=== PATIENT | female | born 1935 | race Caucasian/White ===

== ENCOUNTER 2018-12-28 00:12 | Inpatient (IN) | payer MEDICARE, OTHER ==
[~2018-12-28] VITALS: Ht 160 cm; Wt 70.0 kg
[2018-12-28] VITALS (53 sets, daily range): BP systolic 101–173; BP diastolic 35–102; PULSE 70–89; RESP 14–37
[2018-12-28] MEDS ORDERED: CEFTRIAXONE 1 GM/50 ML (PMX) 50 ML IVPB STA (00:28)
[2018-12-28] MEDS ORDERED: AZITHROMYCIN 500MG/NS (PMX) 250 ML IV STA (00:28)
[2018-12-28] MEDS ORDERED: NITROGLYCERIN (SL) 0.4 MG TAB ONE (00:39)
[2018-12-28] MEDS ORDERED: NITROGLYCERIN (SL) 0.4 MG TAB SL ONE (01:00)
--- NOTE | 2018-12-28 01:11 | ERD ---
ER Documentation Chief Complaint Chief Complaint bib ra from home for cp and resp distress, abnormal ekg upon arrival. HPI 83-year-old female [place]-speaking patient brought in by ambulance from home for possible chest pain and shortness of breath. She did have an abnormal EKG in the field but there was no evidence of STEMI. Otherwise family is not here to answer any questions. The patient is only [place]-speaking and despite trying to use an grey percher, the patient would not answer any questions. 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, arrhythmia) Hx Alcohol Use: No Hx Substance Use: No Hx Tobacco Use: No Smoking Status: Unknown if ever smoked FmHx Unable to obtain Physical Exam Vitals Vital Signs Date Temp Pulse Resp B/P (MAP) Pulse Ox O2 O2 Flow FiO2 Time Delivery Rate 12/28/18 77 25 126/46 100 BIPAP 05:00 (72) 12/28/18 73 22 106/48 100 BIPAP 04:30 (67) 12/28/18 100 70 04:02 12/28/18 73 22 106/43 100 BIPAP 04:00 (64) 12/28/18 78 100 100 03:00 12/28/18 97.2 84 30 130/65 96 BIPAP 20.0 03:00 (86) 12/28/18 97.2 80 30 142/59 96 BIPAP 20.0 01:08 (86) 12/28/18 97.2 90 34 145/53 96 BIPAP 20.0 01:04 (83) 12/28/18 97.2 93 40 130/58 96 BIPAP 00:46 (82) 12/28/18 109 97 100 00:45 12/28/18 98.7 101 19 108/82 100 00:24 (91) 12/28/18 96.6 106 19 105/81 100 BIPAP 20.0 00:24 (89) Physical Exam Const: Significant respiratory distress, diaphoretic, pale Head: Atraumatic Eyes: Normal Conjunctiva ENT: Dry oral mucosa. Normal External Ears, Nose and Mouth. Neck: Full range of motion. No meningismus. Resp: Rhonchi and rales bilaterally Cardio: Tachycardic with regular rhythm, no murmurs Abd: Soft, non tender, non distended. Normal bowel sounds Skin: No petechiae or rashes Back: No midline or flank tenderness Ext: No cyanosis, or edema Neur: Awake and alert Psych: Normal Mood and Affect Result Diagram: 12/28/18 0027 12/28/18 0027 Results 24 hrs Laboratory Tests Test 12/28/18 00:26 12/28/18 00:27 12/28/18 00:33 12/28/18 01:15 POC Venous 3.6 mmol/L Lactate White Blood Count 18.3 10^3/ul Red Blood Count 3.08 10^6/ul Hemoglobin 9.3 g/dl Hematocrit 31.1 % Mean Corpuscular 101.0 fl Volume Mean Corpuscular 30.2 pg Hemoglobin Mean Corpuscular 29.9 g/dl Hemoglobin Concen t Red Cell 17.1 % Distribution Width Platelet Count 348 10^3/UL Mean Platelet 9.9 fl Volume Immature 0.700 % Granulocytes % Neutrophils % 71.5 % Lymphocytes % 22.6 % Monocytes % 4.3 % Eosinophils % 0.4 % Basophils % 0.5 % Nucleated Red 0.0 /100WBC Blood Cells % Immature 0.120 10^3/ul Granulocytes # Neutrophils # 13.1 10^3/ul Lymphocytes # 4.1 10^3/ul Monocytes # 0.8 10^3/ul Eosinophils # 0.1 10^3/ul Basophils # 0.1 10^3/ul Nucleated Red 0.0 10^3/ul Blood Cells # Prothrombin Time 13.9 Sec Prothrombin Time 1.1 Ratio INR International 1.06 Normalized Ratio Activated 28.9 Sec Partial Thrombopl ast Time Sodium Level 144 mmol/L Potassium Level 4.4 mmol/L Chloride Level 107 mmol/L Carbon Dioxide 23 mmol/L Level Anion Gap 14 Blood Urea 45 mg/dl Nitrogen Creatinine 1.87 mg/dl Est Glomerular mL/min Filtrat Rate mL/min Glucose Level 259 mg/dl Calcium Level 8.9 mg/dl Total Bilirubin 0.1 mg/dl Direct Bilirubin 0.00 mg/dl Indirect 0.1 mg/dl Bilirubin Aspartate Amino 47 IU/L Transf (AST/SGOT) Alanine 18 IU/L Aminotransferase (ALT/SGPT) Alkaline 68 IU/L Phosphatase Total Protein 6.2 g/dl Albumin 3.7 g/dl Globulin 2.50 g/dl Albumin/Globulin 1.48 Ratio Bedside Glucose 274 mg/dL Blood Gas Blood arterial Specimen Source Arterial Blood 12/28/2018 1:14:55 Date Drawn AM Arterial Blood pH 7.272 (Temp corrected) Arterial Blood 52.6 mmhg pCO2 (Temp correct) Arterial Blood 106.6 mmHG pO2 (Temp corrected) Arterial Blood 23.7 mmol/L HCO3 Arterial Blood -3.5 mmol/L Base Excess Arterial Blood 96.6 mmHG Oxygen Saturation Francis Test ACCEPTAB Arterial Blood Right Radial Gas Puncture Site Arterial 0.3 % Blood Carboxyhemo globin Arterial Blood 0.3 % Methemoglobin Blood Gas A-a O2 553.8 mmHg Differential Oxyhemoglobin 96.0 % Percent Blood Gas 37.0 C Temperature Blood Gas 20.0 Respiration Rate Blood Gas Actual 34 Respiration Rate Blood Gas MASK - BIPAP Modality FiO2 100.0 % Blood Gas 20/8 IPAP/EPAP Ratio Blood Gas EKAlbino MIKE MD Critical Value Read Back Blood Gas Notified Whom Blood Gas 12/28/2018 1:20:48 Notified Time AM Test 12/28/18 02:25 12/28/18 04:44 Lactic Acid Level 3.0 mmol/L Troponin I 0.743 ng/ml Pending B-Type 8910 PG/ML Natriuretic Peptide Creatine Kinase 187 IU/L Creatine Kinase Pending Index Creatinine Kinase Pending MB (Mass) Current Medications Medications Dose Sig/Lashell Start Time Status Last (Trade) Ordered Route PRN Stop Time Admin Dose Reason Admin Ceftriaxone 50 ml @ ONCE STAT 12/28/18 DC 12/28/18 Sodium 100 mls/hr IVPB 00:28 12/28/18 00:50 00:57 Azithromycin 250 ml @ ONCE STAT 12/28/18 DC 12/28/18 250 mls/hr IV 00:28 12/28/18 01:57 01:27 2 tab ONCE ONCE 12/28/18 DC 12/28/18 Nitroglycerin SL 01:00 12/28/18 00:43 01:01 (Nitroglyceri n (Sl Tab) 0.4 Mg) 25 tab STK-MED 12/28/18 DC Nitroglycerin ONCE .ROUTE 00:39 12/28/18 00:40 (Nitroglyceri n (Sl Tab) 0.4 Mg) Ondansetron 4 mg ER BRIDGE 12/28/18 HCl (Zofran PRN IV 03:30 12/29/18 Inj) NAUSEA/VOMITI 03:29 NG 650 mg ER BRIDGE 12/28/18 Acetaminophen PRN PO 03:30 12/29/18 (Tylenol .MILD PAIN 03:29 Tab) 1-3 OR TEMP Aspirin 162 mg ONCE ONCE 12/28/18 DC 12/28/18 (Aspirin) PO 03:30 12/28/18 03:42 03:31 IV Flush 3 ml PER 12/28/18 (NS 3 ml) PROTOCOL IV 04:30 Ondansetron 4 mg Q6H PRN 12/28/18 HCl (Zofran IV 04:30 Inj) NAUSEA/VOMITI NG Aspirin 81 mg DAILY PO 12/28/18 (Aspirin) 09:00 Furosemide 20 mg DAILY IV 12/28/18 (Lasix) 09:00 1 tab Q5M PRN 12/28/18 Nitroglycerin SL .CHEST 04:30 PAIN (Nitroglyceri n (Sl Tab) 0.4 Mg) Enoxaparin 70 mg ONCE SC 12/28/18 DC Sodium 04:46 12/28/18 (Lovenox) 05:00 Furosemide 20 mg ONCE ONCE 12/28/18 DC (Lasix) IV 04:30 12/28/18 04:44 Discontinue ONCE ONCE 12/28/18 DC Miscellaneous current oral XX 04:30 12/28/18 sulfonylur... 04:44 Information (* Miscellaneous Pharmacy Order) Diagnostic 1 ea 02 XX 12/29/18 Test (Pha) 02:00 (Accu-Chek) ONCE ONCE 12/28/18 DC Miscellaneous HYPOGLYCEMIA XX 04:30 12/28/18 PROTOCOL 04:44 Information w... (* Miscellaneous Pharmacy Order) Insulin NOVOLOG Q4 SC 12/28/18 Aspart *MODERATE* 05:00 (Novolog ALGORI... Insulin Pen) Discontinue ONCE ONCE 12/28/18 DC Miscellaneous all previ... XX 04:30 12/28/18 04:44 Information (* Miscellaneous Pharmacy Order) 1 ea NOTE XX 12/28/18 Miscellaneous 05:00 Information Glucose 15 gm Q15M PRN 12/28/18 (Glutose) PO DECREASED 05:00 GLUCOSE Glucose 22.5 gm Q15M PRN 12/28/18 (Glutose) PO DECREASED 05:00 GLUCOSE Dextrose 25 ml Q15M PRN 12/28/18 (D50w IV DECREASED 05:00 Syringe) GLUCOSE Dextrose 50 ml Q15M PRN 12/28/18 (D50w IV DECREASED 05:00 Syringe) GLUCOSE Glucagon 1 mg Q15M PRN 12/28/18 (Glucagen) IM DECREASED 05:00 GLUCOSE Glucose 15 gm Q15M PRN 12/28/18 (Glutose) BUCCAL 05:00 DECREASED GLUCOSE Procedures/MDM EMERGENT LABS AND DIAGNOSTIC STUDIES: Lab Results above were reviewed and interpreted by me. CBC: Leukocytosis, may be stress reaction versus infection. Mild anemia CMP: Evidence of renal insufficiency of unknown chronicity. Hyperglycemic w ithout acidosis. No evidence of clinically significant electrolyte abnormality, acidosis, hypoglycemia, liver disease, or biliary obstruction Troponin elevated, concerning for myocardial ischemia Lactate elevated, more likely secondary to hypoperfusion rather than sepsis ABG is consistent with respiratory acidosis with a low pH and elevated CO2 12-lead EKG was interpreted by Krissy Benavidez MD: Sinus tachycardia at 105 bpm Left bundle branch block No acute ST or T wave changes suggestive of acute ischemia or STEMI. Chest X-ray 1V Interpreted by me: Soft Tissue: No acute abnormalities Bones: No acute abnormalities Mediastinum/Cardiac Silhouette/Lungs: Significant cardiomegaly with signs of pulmonary edema. No focal infiltrate seen Initial Nursing notes reviewed. Previous Medical Records requested via the Electronic Health Record. EMERGENCY DEPARTMENT COURSE / MEDICAL DECISION MAKING: Patient is presenting with shortness of breath and respiratory distress on exam. She was hypoxic on room air. She was not improving with supplemental oxygen and was placed on BiPAP for possible CHF exacerbation based on exam. Chest x- ray did show evidence of pulmonary edema and cardiomegaly. EKG showed a left bundle branch block. Unfortunately I did not have any previous EKGs in her records to compare to. Patient was unable to provide any history on arrival. However after BiPAP was started, she felt significantly better and her color improved. Her troponin was however slightly elevated, concerning for non-ST elevation NE. patient's finally arrived to bedside at least 1 hour after the patient arrived. He provided some history with the use of a dynamicist but states that she only has a valve problem but denies any heart disease. However based on my examination and my work-up, I feel that the patient is suffering from decompensated heart failure. I finally was able to speak with the patient's maintenance journeyman, Dr. Archlueta, who reviewed the patient's records and states that her last EKG was from September 2017 and the patient did not have a left bundle branch block at that time and feels that this left bundle branch block is new. Echo was last done in March 2018 showing an EF of 60%, severe MR, and aortic stenosis. Family has reportedly opted for no surgery given the patient's age and advanced dementia. Dr. Cantu, maintenance journeyman on-call was paged and I am still awaiting a response. The admitting physician has been notified. Repeat EKG was done and was significantly improved from prior. Patient had an incomplete left bundle branch block with LVH and minimal lateral ST depressions. Aspirin was given. She does not require emergent cardiac catheterization as her symptoms have improved and she is asymptomatic but will require admission for further w/u for ischemia. Although the patient's lactate was elevated, I feel this is likely secondary to tissue hypoperfusion rather than severe sepsis or septic shock. I have a lower suspicion for pneumonia. Her leukocytosis is likely related to stress response. However upon initial presentation the patient had blood cultures done and broad-spectrum antibiotics were given. No IV fluids were given as the patient is fluid overloaded. Critical Care Time: 40 minutes Treatments/Evaluations: Close monitoring and treatment of unstable vital signs, cardiorespiratory, and neurologic status, while maintaining tight balance of fluid, respiratory, and cardiac interventions. This time includes discussing the case with the patient and the patients family. This time does not include all procedures stated elsewhere in this record. This time also includes reviewing old records, labs and radiological studies. This time includes examining and re- examining the patient. Additionally, this time also includes arranging care with admitting and consulting physicians. Accepting Care Team: Current data and ongoing care discussed. Time: Time of admission Primary Provider: Dr. Thornton Consulting: none Outstanding Data: none Departure Diagnosis: Primary Impression: Acute exacerbation of CHF (congestive heart failure) Heart failure type: unspecified Qualified Codes: I50.9 - Heart failure, unspecified Additional Impressions: Acute respiratory failure, unspecified whether with hypoxia or hypercapnia Renal insufficiency Leukocytosis Leukocytosis type: unspecified Qualified Codes: D72.829 - Elevated white blood cell count, unspecified Altered mental status Altered mental status type: transient alteration of awareness Qualified Codes: R40.4 - Transient alteration of awareness Condition: Serious MARRY BENAVIDEZ MD December 28, 2018 01:11
[2018-12-28] MEDS ORDERED: ASPIRIN 81 MG TAB PO ONE (03:30)
[2018-12-28] MEDS ORDERED: ONDANSETRON 4 MG INJ IV PRN (03:30)
[2018-12-28] MEDS ORDERED: ACETAMINOPHEN 325 MG TAB PO PRN (03:30)
[2018-12-28] MEDS ORDERED: NACL 0.9% 3 ML SYG IV SCH (04:30)
[2018-12-28] MEDS ORDERED: FUROSEMIDE 20 MG INJ IV ONE (04:30)
[2018-12-28] MEDS ORDERED: ENOXAPARIN 80 MG/0.8 ML SYG SC SCH (04:46)
[2018-12-28] MEDS ORDERED: GLUCOSE GEL 15 GRAM TUBE BUCCAL PRN (05:00)
[2018-12-28] MEDS ORDERED: GLUCAGON 1 MG INJ IM PRN (05:00)
[2018-12-28] MEDS ORDERED: GLUCOSE GEL 15 GRAM TUBE PO PRN ×2 (05:00)
[2018-12-28] MEDS ORDERED: DEXTROSE 50% 50 ML SYRINGE IV PRN ×2 (05:00)
[2018-12-28] MEDS: INSULIN ASPART [NOVOLOG] 3 ML PEN SC SCH ×5 (06:34→20:59)
--- NOTE | 2018-12-28 06:57 | HP ---
Date/Time of Note Date/Time of Note DATE: 12/28/18 TIME: 06:49 Assessment/Plan VTE Prophylaxis Pharmacological prophylaxis: heparin Lines/Catheters IV Catheter Type (from Nrsg): Saline Lock Assessment/Plan Assessment/Plan 83 yo female with CP and SOB secondary to NSTEMI and CHF PLAN pt is s/p treatment dose Lovenox -cont tele monitoring - place on aspirin - serial trop -2D echo and cardiology consult - BiPAP Result Diagram: 12/28/18 0027 12/28/18 0027 Results 24hrs Laboratory Tests Test 12/28/18 00:26 12/28/18 00:27 12/28/18 00:33 12/28/18 01:15 POC Venous Lactate 3.6 *H White Blood Count 18.3 H Red Blood Count 3.08 L Hemoglobin 9.3 L Hematocrit 31.1 L Mean Corpuscular 101.0 Volume Mean Corpuscular 30.2 Hemoglobin Mean Corpuscular 29.9 L Hemoglobin Concent Red Cell 17.1 H Distribution Width Platelet Count 348 Mean Platelet 9.9 Volume Immature 0.700 H Granulocytes % Neutrophils % 71.5 Lymphocytes % 22.6 Monocytes % 4.3 Eosinophils % 0.4 Basophils % 0.5 Nucleated Red 0.0 Blood Cells % Immature 0.120 H Granulocytes # Neutrophils # 13.1 H Lymphocytes # 4.1 H Monocytes # 0.8 Eosinophils # 0.1 Basophils # 0.1 Nucleated Red 0.0 Blood Cells # Prothrombin Time 13.9 Prothrombin Time 1.1 Ratio INR International 1.06 Normalized Ratio Activated 28.[address] Time Sodium Level 144 Potassium Level 4.4 Chloride Level 107 Carbon Dioxide 23 Level Anion Gap 14 H Blood Urea 45 H Nitrogen Creatinine 1.87 H Est Glomerular Filtrat Rate mL/min Glucose Level 259 H Calcium Level 8.9 Total Bilirubin 0.1 L Direct Bilirubin 0.00 Indirect Bilirubin 0.1 Aspartate Amino 47 H Transf (AST/SGOT) Alanine 18 Aminotransferase ( ALT/SGPT) Alkaline 68 Phosphatase Total Protein 6.2 Albumin 3.7 Globulin 2.50 Albumin/Globulin 1.48 Ratio Bedside Glucose 274 H Blood Gas Specimen Blood arterial Source Arterial Blood 12/28/2018 1:14:55 Date Drawn AM Arterial Blood pH 7.272 *L (Temp corrected) Arterial Blood 52.6 H pCO2 (Temp correct) Arterial Blood pO2 106.6 H (Temp corrected) Arterial Blood 23.7 HCO3 Arterial Blood -3.5 L Base Excess Arterial Blood 96.6 Oxygen Saturation Francis Test ACCEPTAB Arterial Blood Gas Right Radial Puncture Site Arterial 0.3 Blood Carboxyhemog lobin Arterial Blood 0.3 Methemoglobin Blood Gas A-a O2 553.8 H Differential Oxyhemoglobin 96.0 Percent Blood Gas 37.0 Temperature Blood Gas 20.0 Respiration Rate Blood Gas Actual 34 Respiration Rate Blood Gas Modality MASK - BIPAP FiO2 100.0 Blood Gas 20/8 IPAP/EPAP Ratio Blood Gas Critical Albino SHEPHERD MD Value Read Back Blood Gas Notified Whom Blood Gas Notified 12/28/2018 1:20:48 Time AM Test 12/28/18 02:25 12/28/18 04:44 12/28/18 06:31 Lactic Acid Level 3.0 *H 1.2 Troponin I 0.743 *H 3.410 *H B-Type Natriuretic 8910 H Peptide Creatine Kinase 187 Creatine Kinase 8.0 Index Creatinine Kinase 14.90 H MB (Mass) Bedside Glucose 127 HPI/ROS Admit Date/Time Admit Date/Time December 28, 2018 at 03:23 Hx of Present Illness This is an 83-year-old female with reported history of dementia, hypertension, dyslipidemia, severe MR and aortic stenosis, arrhythmia who was brought to the ER for chest pain and shortness of breath. Patient is not able to provide history. In the ER, family was at the bedside and provided some information. Patient has been placed on a BiPAP for shortness of breath. Initial ABG shows pH of 7.27, PCO2 53, PO2 107, bicarb 24, on 100% FiO2 while on BiPAP. Chest x- ray shows mild pulmonary edema. Her first troponin was found to be elevated at 0.7, the second just resulted and is even higher at 3.4. Initial EKG shows LBBB, repeat EKG without LBBB. Patient did remove her BIPAP to go to rest room and I noticed that she's obviously short of breath especially when walking. ER physician reached out to patient's missile pad mechanic, Dr. Arabella Patel [phone], who reviewed the patient's records and stated that her last EKG was from September 2017 and the patient did not have a left bundle branch block at that time and felt that this left bundle branch block was new. Echo was last done in March 2018 showing an EF of 60%, severe MR, and aortic stenosis. Family has reportedly opted for no surgery given the patient's age and advanced dementia. PMH/Family/Social Past Medical History Past Surgical Hx: other (see hpi) Family History Significant Family History: no pertinent family hx Social History Alcohol Use: heavy (2 beers a day) Smoking Status: Never smoker Drug Use: none Exam Constitutional: other (no acute distress) ENMT: nl external ears & nose Neck: supple, non-tender Respiratory: normal air movement Cardiovascular: nl pulses Gastrointestinal: soft Extremities: normal pulses Medications Current Medications Ondansetron HCl (Zofran Inj) 4 mg ER BRIDGE PRN IV NAUSEA/VOMITING; Start 12/28/18 at 03:30; Stop 12/29/18 at 03:29 Acetaminophen (Tylenol Tab) 650 mg ER BRIDGE PRN PO .MILD PAIN 1-3 OR TEMP; Start 12/28/18 at 03:30; Stop 12/29/18 at 03:29 IV Flush (NS 3 ml) 3 ml PER PROTOCOL IV ; Start 12/28/18 at 04:30 Ondansetron HCl (Zofran Inj) 4 mg Q6H PRN IV NAUSEA/VOMITING; Start 12/28/18 at 04:30 Aspirin (Aspirin) 81 mg DAILY PO ; Start 12/28/18 at 09:00 Furosemide (Lasix) 20 mg DAILY IV ; Start 12/28/18 at 09:00 Nitroglycerin (Nitroglycerin (Sl Tab) 0.4 Mg) 1 tab Q5M PRN SL .CHEST PAIN; Start 12/28/18 at 04:30 Diagnostic Test (Pha) (Accu-Chek) 1 ea 02 XX ; Start 12/29/18 at 02:00 Insulin Aspart (Novolog Insulin Pen) NOVOLOG *MODERATE* ALGORI... Q4 SC ; Start 12/28/18 at 05:00 Miscellaneous Information 1 ea NOTE XX ; Start 12/28/18 at 05:00 Glucose (Glutose) 15 gm Q15M PRN PO DECREASED GLUCOSE; Start 12/28/18 at 05:00 Glucose (Glutose) 22.5 gm Q15M PRN PO DECREASED GLUCOSE; Start 12/28/18 at 05:00 Dextrose (D50w Syringe) 25 ml Q15M PRN IV DECREASED GLUCOSE; Start 12/28/18 at 05:00 Dextrose (D50w Syringe) 50 ml Q15M PRN IV DECREASED GLUCOSE; Start 12/28/18 at 0 5:00 Glucagon (Glucagen) 1 mg Q15M PRN IM DECREASED GLUCOSE; Start 12/28/18 at 05:00 Glucose (Glutose) 15 gm Q15M PRN BUCCAL DECREASED GLUCOSE; Start 12/28/18 at 05:00 Coded Allergies: No Known Allergy (Unverified , 12/29/18) Social History Smoking Status: Unknown if ever smoked Exam/Review of Systems Vital Signs Vitals Vital Signs Date Temp Pulse Resp B/P (MAP) Pulse Ox O2 O2 Flow FiO2 Time Delivery Rate 12/28/18 98.5 76 26 128/59 97 BIPAP 20.0 06:35 (82) 12/28/18 70 05:52 FIOR NEW MD December 28, 2018 06:57
[2018-12-28] MEDS: ASPIRIN 81 MG TAB PO SCH (09:00)
[2018-12-28] MEDS: NITROGLYCERIN (SL) 0.4 MG TAB SL PRN (09:55)
[2018-12-28] MEDS: FUROSEMIDE 40 MG INJ IV SCH (10:07)
[2018-12-28] MEDS ORDERED: NITROGLYCERIN 50 MG/D5W (PMX) 250 ML IV SCH (10:30)
[2018-12-28] MEDS ORDERED: NITROGLYCERIN (IC) 100 MCG/ML INJ ONE (10:32)
[2018-12-28] MEDS ORDERED: VERAPAMIL 5 MG INJ ONE (10:32)
[2018-12-28] MEDS ORDERED: MIDAZOLAM 1 MG/ML 2 ML INJ ONE (10:32)
[2018-12-28] MEDS ORDERED: FENTAnyl 50 MCG/ML VIAL ONE (10:32)
[2018-12-28] MEDS ORDERED: IODIXANOL LOCM 100 ML BTL ONE (10:33)
[2018-12-28] MEDS ORDERED: IOHEXOL 350MG/ML 50 ML BTL ONE (10:33)
--- NOTE | 2018-12-28 10:50 | CONS ---
Assessment/Plan Assessment/Plan Hospital Course (Demo Recall) 83 yo with acute onset dyspnea and chest pain and new lbbb, with decompensation this am requiring bipap. Imp: VT with new LBBB, being treated as "STEMI" acute resp failure htn possible valvular heart disease, no loud murmurs heard on exam CKD with cr 1.8 on presentation Recommendations: Coronary angiography with possible angioplasty. Discussed plan with patient's , risks and benefits, with Manju KNOX translating. He agrees for her to proceed (pt not in any condition to provide informed consent) Will be cautious with contrast dye Patient received Lovenox this am, so if further anticoagulation needed for pci, would prefer to use IV Lovenox 0.3 mg/kg. Consultation Date/Type/Reason Admit Date/Time December 28, 2018 at 03:23 Date of Consultation: December 28, 2018 Type of Consult Cardiology Reason for Consultation chest pain, new left bundle, VT Requesting Provider: ANAM TOMPKINS MD Date/Time of Note DATE: 12/28/18 TIME: 10:43 Hx of Present Illness 83 yo with h/o htn, followed by Dr. Arabella Archuleta as an outpatient, presents with 2 weeks left leg pain and acute onset chest pain and dyspnea yesterday. EKG showed incomplete lbbb on presentation and at present is a complete lbbb. Patient developed worsening sob and cp this am, given furosemide and now on bipap. Due to decompensation and new lbbb I was contacted. After Lasix pt is more comfortable but still a bit tachypneic. History obtained from with Manju KNOX translating, as pt unable to provide full history. At baseline pt fairly active, has no h/o stents, VT, or CABG. Subjective hx not possible: pt critical status Past Medical History Medical History: hypertension Medications Current Medications IV Flush (NS 3 ml) 3 ml PER PROTOCOL IV ; Start 12/28/18 at 04:30 Ondansetron HCl (Zofran Inj) 4 mg Q6H PRN IV NAUSEA/VOMITING; Start 12/28/18 at 04:30 Aspirin (Aspirin) 81 mg DAILY PO ; Start 12/28/18 at 09:00 Furosemide (Lasix) 20 mg DAILY IV Last administered on 12/28/18at 10:07; Admin Dose 20 MG; Start 12/28/18 at 09:00 Nitroglycerin (Nitroglycerin (Sl Tab) 0.4 Mg) 1 tab Q5M PRN SL .CHEST PAIN Last administered on 12/28/18at 09:55; Admin Dose 1 TAB; Start 12/28/18 at 04:30 Diagnostic Test (Pha) (Accu-Chek) 1 ea 02 XX ; Start 12/29/18 at 02:00 Insulin Aspart (Novolog Insulin Pen) NOVOLOG *MODERATE* ALGORI... Q4 SC ; Start 12/28/18 at 05:00 Miscellaneous Information 1 ea NOTE XX ; Start 12/28/18 at 05:00 Glucose (Glutose) 15 gm Q15M PRN PO DECREASED GLUCOSE; Start 12/28/18 at 05:00 Glucose (Glutose) 22.5 gm Q15M PRN PO DECREASED GLUCOSE; Start 12/28/18 at 05:00 Dextrose (D50w Syringe) 25 ml Q15M PRN IV DECREASED GLUCOSE; Start 12/28/18 at 05:00 Dextrose (D50w Syringe) 50 ml Q15M PRN IV DECREASED GLUCOSE; Start 12/28/18 at 05:00 Glucagon (Glucagen) 1 mg Q15M PRN IM DECREASED GLUCOSE; Start 12/28/18 at 05:00 Glucose (Glutose) 15 gm Q15M PRN BUCCAL DECREASED GLUCOSE; Start 12/28/18 at 05:00 Nitroglycerin/ Dextrose 250 ml @ 5 mls/hr TITRATE IV ; Start 12/28/18 at 10:30; Status UNV Allergies: Coded Allergies: No Known Allergy (Unverified , 12/28/18) Past Surgical History unk Family History Significant Family History: no pertinent family hx Social History Smoking Status: Never smoker Exam/Review of Systems Vital Signs Vitals Vital Signs Date Temp Pulse Resp B/P (MAP) Pulse Ox O2 O2 Flow FiO2 Time Delivery Rate 12/28/18 Non 15.0 09:40 Rebreather 12/28/18 84 08:09 12/28/18 97.9 24 127/60 96 07:28 (82) 12/28/18 70 05:52 Exam Constitutional: alert Psych: nl mood/affect Head: normocephalic Eyes: EOMI, nl lids, nl sclera ENMT: nl external ears & nose, nl nasal mucosa & septum Neck: No jvd, No bruits Respiratory: crackles/rales (mild, diffuse) Cardiovascular: regular rate and rhythm, other (no murmurs heard) Gastrointestinal: soft, nl liver, spleen, non-tender Musculoskeletal: nl extremities to inspection Extremities: No normal pulses (absent dp and pt pulses) Neurological: nl speech Skin: other (clammy) Labs Result Diagram: 12/28/18 0027 12/28/18 0027 Results 24hrs Laboratory Tests Test 12/28/18 00:26 12/28/18 00:27 12/28/18 00:33 12/28/18 01:15 POC Venous Lactate 3.6 *H White Blood Count 18.3 H Red Blood Count 3.08 L Hemoglobin 9.3 L Hematocrit 31.1 L Mean Corpuscular 101.0 Volume Mean Corpuscular 30.2 Hemoglobin Mean Corpuscular 29.9 L Hemoglobin Concent Red Cell 17.1 H Distribution Width Platelet Count 348 Mean Platelet 9.9 Volume Immature 0.700 H Granulocytes % Neutrophils % 71.5 Lymphocytes % 22.6 Monocytes % 4.3 Eosinophils % 0.4 Basophils % 0.5 Nucleated Red 0.0 Blood Cells % Immature 0.120 H Granulocytes # Neutrophils # 13.1 H Lymphocytes # 4.1 H Monocytes # 0.8 Eosinophils # 0.1 Basophils # 0.1 Nucleated Red 0.0 Blood Cells # Prothrombin Time 13.9 Prothrombin Time 1.1 Ratio INR International 1.06 Normalized Ratio Activated 28.[address] Time Sodium Level 144 Potassium Level 4.4 Chloride Level 107 Carbon Dioxide 23 Level Anion Gap 14 H Blood Urea 45 H Nitrogen Creatinine 1.87 H Est Glomerular Filtrat Rate mL/min Glucose Level 259 H Calcium Level 8.9 Total Bilirubin 0.1 L Direct Bilirubin 0.00 Indirect Bilirubin 0.1 Aspartate Amino 47 H Transf (AST/SGOT) Alanine 18 Aminotransferase ( ALT/SGPT) Alkaline 68 Phosphatase Total Protein 6.2 Albumin 3.7 Globulin 2.50 Albumin/Globulin 1.48 Ratio Bedside Glucose 274 H Blood Gas Specimen Blood arterial Source Arterial Blood 12/28/2018 1:14:55 Date Drawn AM Arterial Blood pH 7.272 *L (Temp corrected) Arterial Blood 52.6 H pCO2 (Temp correct) Arterial Blood pO2 106.6 H (Temp corrected) Arterial Blood 23.7 HCO3 Arterial Blood -3.5 L Base Excess Arterial Blood 96.6 Oxygen Saturation Francis Test ACCEPTAB Arterial Blood Gas Right Radial Puncture Site Arterial 0.3 Blood Carboxyhemog lobin Arterial Blood 0.3 Methemoglobin Blood Gas A-a O2 553.8 H Differential Oxyhemoglobin 96.0 Percent Blood Gas 37.0 Temperature Blood Gas 20.0 Respiration Rate Blood Gas Actual 34 Respiration Rate Blood Gas Modality MASK - BIPAP FiO2 100.0 Blood Gas 20/8 IPAP/EPAP Ratio Blood Gas Critical EKAlbino MIKE MD Value Read Back Blood Gas Notified Whom Blood Gas Notified 12/28/2018 1:20:48 Time AM Test 12/28/18 02:25 12/28/18 04:44 12/28/18 06:31 12/28/18 07:00 Lactic Acid Level 3.0 *H 1.2 Troponin I 0.743 *H 3.410 *H B-Type Natriuretic 8910 H Peptide Creatine Kinase 187 Creatine Kinase 8.0 Index Creatinine Kinase 14.90 H MB (Mass) Bedside Glucose 127 Blood Gas Specimen Blood arterial Source Arterial Blood 12/28/2018 8:40:13 Date Drawn AM Arterial Blood pH 7.416 (Temp corrected) Arterial Blood 39.4 pCO2 (Temp correct) Arterial Blood pO2 104.8 H (Temp corrected) Arterial Blood 24.8 HCO3 Arterial Blood 0.3 Base Excess Arterial Blood 97.3 Oxygen Saturation Francis Test ACCEPTAB Arterial Blood Gas Right Radial Puncture Site Arterial 0.3 Blood Carboxyhemog lobin Arterial Blood 0.2 Methemoglobin Blood Gas A-a O2 207.4 H Differential Oxyhemoglobin 96.8 Percent Blood Gas 37.0 Temperature Blood Gas 20.0 Respiration Rate Blood Gas Actual 22 Respiration Rate Blood Gas Modality MASK - BIPAP FiO2 50.0 Blood Gas Pressure 12 Support Blood Gas 20/8 IPAP/EPAP Ratio Blood Gas Notified DT Whom Blood Gas Notified 12/28/2018 8:50:54 Time AM Test 12/28/18 08:10 12/28/18 09:51 12/28/18 10:11 Bedside Glucose 174 137 Creatine Kinase 290 H Creatine Kinase Pending Index Creatinine Kinase Pending MB (Mass) Troponin I Pending Imaging Imaging LBBB this am. Last night, incomplete LBBB. Both with nsr Medications Medications Current Medications IV Flush (NS 3 ml) 3 ml PER PROTOCOL IV ; Start 12/28/18 at 04:30 Ondansetron HCl (Zofran Inj) 4 mg Q6H PRN IV NAUSEA/VOMITING; Start 12/28/18 at 04:30 Aspirin (Aspirin) 81 mg DAILY PO ; Start 12/28/18 at 09:00 Furosemide (Lasix) 20 mg DAILY IV Last administered on 12/28/18at 10:07; Admin Dose 20 MG; Start 12/28/18 at 09:00 Nitroglycerin (Nitroglycerin (Sl Tab) 0.4 Mg) 1 tab Q5M PRN SL .CHEST PAIN Last administered on 12/28/18at 09:55; Admin Dose 1 TAB; Start 12/28/18 at 04:30 Diagnostic Test (Pha) (Accu-Chek) 1 ea 02 XX ; Start 12/29/18 at 02:00 Insulin Aspart (Novolog Insulin Pen) NOVOLOG *MODERATE* ALGORI... Q4 SC ; Start 12/28/18 at 05:00 Miscellaneous Information 1 ea NOTE XX ; Start 12/28/18 at 05:00 Glucose (Glutose) 15 gm Q15M PRN PO DECREASED GLUCOSE; Start 12/28/18 at 05:00 Glucose (Glutose) 22.5 gm Q15M PRN PO DECREASED GLUCOSE; Start 12/28/18 at 05:00 Dextrose (D50w Syringe) 25 ml Q15M PRN IV DECREASED GLUCOSE; Start 12/28/18 at 05:00 Dextrose (D50w Syringe) 50 ml Q15M PRN IV DECREASED GLUCOSE; Start 12/28/18 at 05:00 Glucagon (Glucagen) 1 mg Q15M PRN IM DECREASED GLUCOSE; Start 12/28/18 at 05:00 Glucose (Glutose) 15 gm Q15M PRN BUCCAL DECREASED GLUCOSE; Start 12/28/18 at 05:00 Nitroglycerin/ Dextrose 250 ml @ 5 mls/hr TITRATE IV ; Start 12/28/18 at 10:30; Status RODRIGUEZ HOWARD December 28, 2018 10:50
--- NOTE | 2018-12-28 11:57 | OPR ---
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 Patient brought emergently to the cardiac catheterization laboratory. Moderate sedation administered. Using a micropuncture and fluoroscopy for access guidance, a 6F sheath placed in the right COILER. JL4 and JR4 advanced to the asc thoracic aorta and engaged the LM and RCA. Multiple images obtained. Then a pigtail crossed the LV, pressures measured, and LV gram performed, and pullback gradient measured. All catheters exchanged over a J wire. Due to Lovenox given 5 hours prior, sheath sewn in place for removal later today. Findings: Left main -- ok LAD -- 90% proximal lesion at the site of an aneurysm, with FRANCINE 2 flow down the vessel and competitive flow. Lesion difficult to see due to overlap of vessels, best seen in a steep SORTO caudal view LCX -- mild luminal irregularities with one large OM branch RCA -- proximal 80% long lesion of about 25 mm LVEF 35% with global hypokinesis, LVEDP 31 Summary: Moderately reduced LVEF with severe 2 vessel CAD and elevated EDP. Plan is for evaluation for cabg. In the meantime she will be diuresed, placed on nitro gtt and heparin GTT. Case d/w Dr. Freire and Dr. Badillo. Findings d/w pt and her with Manju KNOX template fitter. RODRIGUEZ GARZA December 28, 2018 11:57
[2018-12-28] MEDS: HOLD all METFORMIN and METFORMIN CONTAINING medications for 48 hours post procedure. Chec XX SCH (12:00)
[2018-12-28] MEDS ORDERED: ATORVASTATIN 80 MG TAB PO ONE (13:00)
[2018-12-28] MEDS ORDERED: HEPARIN 1000 UNITS/ML 10 ML INJ IV PRN (13:00)
[2018-12-28] MEDS ORDERED: FUROSEMIDE 40 MG INJ IV ONE (13:00)
[2018-12-28] MEDS ORDERED: HEPARIN 25000 UNITS/250 ML 250 ML ONE (13:18)
[2018-12-28] MEDS ORDERED: HEPARIN 1000 UNITS/ML 10 ML INJ IV SCH (13:49)
[2018-12-28] MEDS: HEPARIN 25000 UNITS/D5W 250 ML IV SCH (14:12)
--- NOTE | 2018-12-28 14:19 | PN ---
Date/Time of Note Date/Time of Note DATE: 12/28/18 TIME: 14:06 Assessment/Plan VTE Prophylaxis Risk score (from Ns)>0 risk: 5 SCD applied (from Ns): No SCD contraindicated: other (no) Pharmacological prophylaxis: heparin Lines/Catheters IV [facility] (from [facility]): Saline Lock Assessment/Plan Assessment/Plan 83 yo Bangladeshi-speaking woman with history of dementia, hypertension, dysli pidemia, severe MR and aortic stenosis, arrhythmia who presents with ACS and multi-vessel coronary artery disease. #CAD #NSTEMI - Cardiac cath 12/28: Severe 2 vessel CAD, LAD and RCA, LAD is culprit with francine 2 flow, and cardiomyopathy with LVEF 35% - Continue heparin gtt - Continue beta geovanny - Continue statin - Currently on home aspirin - Dr. Alvarenga following - Dr. Freire consulted. #Acute CHF exacerbation - Per above, likely due to acute ischemic CAD. - Nitro gtt, titrate to BP and pulmonary edema - NIPPV as needed for pulmonary edema. - Cautious loop diuresis. DVT: heparin gtt GI: PPI Result Diagram: 12/28/18 0027 12/28/18 1011 Subjective 24 Hr Interval Summary Free Text/Dictation This morning, after admission up to tele, rapid response was called for worsening pressure-like chest pain and dyspnea. The patient had coarse breath sounds and pulmonary edema on CXR; and was saturating low 90s on oxygen facemask so was placed on BiPAP. Also given sublingual nitro and IV lasix with relief of dyspnea and chest pain. EKG was done showing complete LBBB. The QRS was much wider than EKG on admission. Also on review of labs, trop increased 0.7 to 3.4. Given the clinical picture I was concerned about an acute coronary syndrome that may need cardiac cath. I called code STEMI for urgent cardiology evaluation, I do not believe the patient was having a true ST elevation [place]. The patient was evaluated by Dr. Alvarenga and taken to cardiac cath. LV gram showed 30% EF and coronary angio showed 90% disease of the LAD and disease along the RCA. See full report. Current plan is to keep patient in ICU on heparin and nitro gtt and plan for CT surgery evaluation. Exam/Review of Systems Exam Vitals Vital Signs Date Temp Pulse Resp B/P (MAP) Pulse Ox O2 O2 Flow FiO2 Time Delivery Rate 12/28/18 77 28 164/42 96 Nasal 13:45 (82) Cannula 12/28/18 98.2 12:00 12/28/18 15.0 09:40 12/28/18 70 05:52 Exam Gen: Frail appearing elderly woman in some respiratory disease on BiPAP Eyes: PERRL, no icterus HEENT: Moist mucous membranes, clear oropharynx Neck: No JVD, no lymphadenopathy Card: Regular rate and rhythm, no murmurs appreciated Pulm: Rales throughout. Mild respiratory distress on BiPAP. Abd: Soft, nontender, nondistended. Ext: No cyanosis/clubbing/edema. Results Results 24hrs Laboratory Tests Test 12/28/18 00:26 12/28/18 00:27 12/28/18 00:33 12/28/18 01:15 POC Venous Lactate 3.6 *H White Blood Count 18.3 H Red Blood Count 3.08 L Hemoglobin 9.3 L Hematocrit 31.1 L Mean Corpuscular 101.0 Volume Mean Corpuscular 30.2 Hemoglobin Mean Corpuscular 29.9 L Hemoglobin Concent Red Cell 17.1 H Distribution Width Platelet Count 348 Mean Platelet 9.9 Volume Immature 0.700 H Granulocytes % Neutrophils % 71.5 Lymphocytes % 22.6 Monocytes % 4.3 Eosinophils % 0.4 Basophils % 0.5 Nucleated Red 0.0 Blood Cells % Immature 0.120 H Granulocytes # Neutrophils # 13.1 H Lymphocytes # 4.1 H Monocytes # 0.8 Eosinophils # 0.1 Basophils # 0.1 Nucleated Red 0.0 Blood Cells # Prothrombin Time 13.9 Prothrombin Time 1.1 Ratio INR International 1.06 Normalized Ratio Activated 28.[address] Time Sodium Level 144 Potassium Level 4.4 Chloride Level 107 Carbon Dioxide 23 Level Anion Gap 14 H Blood Urea 45 H Nitrogen Creatinine 1.87 H Est Glomerular Filtrat Rate mL/min Glucose Level 259 H Calcium Level 8.9 Total Bilirubin 0.1 L Direct Bilirubin 0.00 Indirect Bilirubin 0.1 Aspartate Amino 47 H Transf (AST/SGOT) Alanine 18 Aminotransferase ( ALT/SGPT) Alkaline 68 Phosphatase Total Protein 6.2 Albumin 3.7 Globulin 2.50 Albumin/Globulin 1.48 Ratio Bedside Glucose 274 H Blood Gas Specimen Blood arterial Source Arterial Blood 12/28/2018 1:14:55 Date Drawn AM Arterial Blood pH 7.272 *L (Temp corrected) Arterial Blood 52.6 H pCO2 (Temp correct) Arterial Blood pO2 106.6 H (Temp corrected) Arterial Blood 23.7 HCO3 Arterial Blood -3.5 L Base Excess Arterial Blood 96.6 Oxygen Saturation Francis Test ACCEPTAB Arterial Blood Gas Right Radial Puncture Site Arterial 0.3 Blood Carboxyhemog lobin Arterial Blood 0.3 Methemoglobin Blood Gas A-a O2 553.8 H Differential Oxyhemoglobin 96.0 Percent Blood Gas 37.0 Temperature Blood Gas 20.0 Respiration Rate Blood Gas Actual 34 Respiration Rate Blood Gas Modality MASK - BIPAP FiO2 100.0 Blood Gas 20/8 IPAP/EPAP Ratio Blood Gas Critical Albino SHEPHERD MD Value Read Back Blood Gas Notified Whom Blood Gas Notified 12/28/2018 1:20:48 Time AM Test 12/28/18 02:25 12/28/18 04:44 12/28/18 06:31 12/28/18 07:00 Lactic Acid Level 3.0 *H 1.2 Troponin I 0.743 *H 3.410 *H B-Type Natriuretic 8910 H Peptide Creatine Kinase 187 Creatine Kinase 8.0 Index Creatinine Kinase 14.90 H MB (Mass) Bedside Glucose 127 Blood Gas Specimen Blood arterial Source Arterial Blood 12/28/2018 8:40:13 Date Drawn AM Arterial Blood pH 7.416 (Temp corrected) Arterial Blood 39.4 pCO2 (Temp correct) Arterial Blood pO2 104.8 H (Temp corrected) Arterial Blood 24.8 HCO3 Arterial Blood 0.3 Base Excess Arterial Blood 97.3 Oxygen Saturation Francis Test ACCEPTAB Arterial Blood Gas Right Radial Puncture Site Arterial 0.3 Blood Carboxyhemog lobin Arterial Blood 0.2 Methemoglobin Blood Gas A-a O2 207.4 H Differential Oxyhemoglobin 96.8 Percent Blood Gas 37.0 Temperature Blood Gas 20.0 Respiration Rate Blood Gas Actual 22 Respiration Rate Blood Gas Modality MASK - BIPAP FiO2 50.0 Blood Gas Pressure 12 Support Blood Gas 20/8 IPAP/EPAP Ratio Blood Gas Notified DT Whom Blood Gas Notified 12/28/2018 8:50:54 Time AM Test 12/28/18 08:10 12/28/18 09:51 12/28/18 10:11 12/28/18 12:23 Bedside Glucose 174 137 107 Sodium Level 146 H Potassium Level 4.3 Chloride Level 109 Carbon Dioxide 22 Level Anion Gap 15 H Blood Urea 47 H Nitrogen Creatinine 1.82 H Est Glomerular Filtrat Rate mL/min Glucose Level 170 Calcium Level 9.1 Creatine Kinase 290 H Creatine Kinase 6.2 Index Creatinine Kinase 17.90 H MB (Mass) Troponin I 8.170 *H B-Type Natriuretic 99630 H Peptide Medications Medication Current Medications IV Flush (NS 3 ml) 3 ml PER PROTOCOL IV ; Start 12/28/18 at 04:30 Ondansetron HCl (Zofran Inj) 4 mg Q6H PRN IV NAUSEA/VOMITING; Start 12/28/18 at 04:30 Aspirin (Aspirin) 81 mg DAILY PO ; Start 12/28/18 at 09:00 Furosemide (Lasix) 20 mg DAILY IV Last administered on 12/28/18at 10:07; Admin Dose 20 MG; Start 12/28/18 at 09:00 Nitroglycerin (Nitroglycerin (Sl Tab) 0.4 Mg) 1 tab Q5M PRN SL .CHEST PAIN Last administered on 12/28/18at 09:55; Admin Dose 1 TAB; Start 12/28/18 at 04:30 Diagnostic Test (Pha) (Accu-Chek) 1 ea 02 XX ; Start 12/29/18 at 02:00 Insulin Aspart (Novolog Insulin Pen) NOVOLOG *MODERATE* ALGORI... Q4 SC ; Start 12/28/18 at 05:00 Miscellaneous Information 1 ea NOTE XX ; Start 12/28/18 at 05:00 Glucose (Glutose) 15 gm Q15M PRN PO DECREASED GLUCOSE; Start 12/28/18 at 05:00 Glucose (Glutose) 22.5 gm Q15M PRN PO DECREASED GLUCOSE; Start 12/28/18 at 05:00 Dextrose (D50w Syringe) 25 ml Q15M PRN IV DECREASED GLUCOSE; Start 12/28/18 at 05:00 Dextrose (D50w Syringe) 50 ml Q15M PRN IV DECREASED GLUCOSE; Start 12/28/18 at 05:00 Glucagon (Glucagen) 1 mg Q15M PRN IM DECREASED GLUCOSE; Start 12/28/18 at 05:00 Glucose (Glutose) 15 gm Q15M PRN BUCCAL DECREASED GLUCOSE; Start 12/28/18 at 05:00 Nitroglycerin/ Dextrose 250 ml @ 5 mls/hr TITRATE IV Last administered on 12/28/18at 12:35; Admin Dose 5 MLS/HR; Start 12/28/18 at 10:30 Miscellaneous Information (* Miscellaneous Pharmacy Order) HOLD all METFORMIN ... ONCE XX ; Start 12/28/18 at 12:00; Stop 12/30/18 at 11:59 Heparin Sodium (Porcine) (Heparin (1000 Units/ml)) 4,000 unit PER PROTOCOL PRN IV aPTT<47; Start 12/28/18 at 13:00 Carvedilol (Coreg) 6.25 mg BID PO Last administered on 12/28/18at 13:24; Admin Dose 6.25 MG; Start 12/28/18 at 13:00 Atorvastatin Calcium (Lipitor) 80 mg HS PO ; Start 12/29/18 at 21:00 Heparin Sodium (Porcine) 250 ml @ 8.5 mls/hr Q24H IV ; Start 12/28/18 at 13:48 ANAM TOMPKINS MD December 28, 2018 14:17
--- NOTE | 2018-12-28 15:35 | PN ---
Date/Time of Note Date/Time of Note DATE: 12/28/18 TIME: 15:28 Assessment/Plan Lines/Catheters IV [facility] Saline Lock [place] in Place (from Nrs): Yes Assessment/Plan Assessment/Plan 83 year old admitted with SOB and chest pain and ruled in for NSTEMI. Cath shows high grade proximal LAD disease with slow filling of LAD and long high grade proximal LAD stenosis. Echo shows EF of 35% with moderate to severe MR. CXR shows right infiltrate and her WBC is 18K. Her creatinine is 1.8. She is not ready for CABG at this time. She needs abx to treat her pneumonia and we have to see what her baseline creatinine is. Will follow over next several days. 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 Exam/Review of Systems Vital Signs Vitals Vital Signs Date Temp Pulse Resp B/P (MAP) Pulse Ox O2 O2 Flow FiO2 Time Delivery Rate 12/28/18 77 28 164/42 96 Nasal 13:45 (82) Cannula 12/28/18 5.0 13:40 12/28/18 98.2 12:00 12/28/18 60 11:50 Results Result Diagram: 12/28/18 0027 12/28/18 1011 BAIRON TRAN MD December 28, 2018 15:35
[2018-12-28] MEDS ORDERED: ATROPINE 1 MG/10 ML SYRINGE ONE (16:15)
[2018-12-28] MEDS: PIPER-TAZO 2.25 GM (PMX) 50 ML IVPB SCH ×2 (17:20→23:59)
--- NOTE | 2018-12-28 17:23 | RADRPT ---
Echocardiogram Report Patient Name: Andry MAYStient ID: [id number] : 7 (83y 6m)Study Date: 12/28/2018 12:05:48 PM Gender: FAccession #: [id number] Tech: Clair OlivaVIOLA osorioJENNY Location: Ref.Physician: FIOR NEW Height(Cm): BSA: Weight(Kg): Quality: AdequateAccount #: Procedures: Echocardiographic Report: Transthoracic echocardiogram with complete 2D, M-Mode, and doppler examination. Indications: NSTEMI. Measurements: 2D/M Mode Doppler Measurement Value Normal Range Measurement Value Normal Range LVIDd 2D 5.9 [ 3.8 - 5.2 ] cm AV Peak Kaleb 1.9 [ 100.0 - 170.0 ] cm/se c LVIDs 2D 4.1 [ 2.2 - 3.5 ] cm AV Peak PG 15.0 [ 2.0 - 9.0 ] mmHg LVPWd 2D 1.1 [ 0.6 - 0.9 ] cm AI Peak PG 42.0 mmHg IVSd 2D 0.9 [ 0.6 - 0.9 ] cm AI Peak Kaleb 3.2 cm/sec AoR Diam 2D 2.9 [ 2.3 - 3.1 ] cm AI PHT 376.0 msec EDV 2D 171.0 [ 46.0 - 106.0 ] ml LVOT Peak Kaleb 1.7 [ 70.0 - 110.0 ] cm/sec ESV 2D 75.5 [ 14.0 - 42.0 ] ml LVOT Peak PG 11.0 [ 2.0 - 6.0 ] mmHg EF 2D 55.8 [ 54.0 - 74.0 ] percent MV E Peak Kaleb 1.2 [ 60.0 - 130.0 ] cm/sec LA Dimen 2D 4.2 [ 2.7 - 3.8 ] cm MV A Peak Kaleb 1.3 [ 100.0 - 120.0 ] cm/se c MV E/A 0.9 [ 0.8 - 1.5 ] ratio MV PHT 56.0 [ 20.0 - 100.0 ] msec MV Decel Time 190 [ 104 - 258 ] msec MV Decel [place] 6 Lat E` Kaleb 0.1 [ 10.0 - 15.0 ] cm/sec Lateral E/E` 14.3 [ 1.0 - 2.0 ] ratio Med E` Kaleb 0.1 cm/sec MV E/A 0.9 [ 0.8 - 1.5 ] ratio MVA PHT 3.9 [ 2.0 - 4.0 ] cm2 TR Peak Kaleb 2.2 [ 100.0 - 280.0 ] cm/se c TR Peak PG 20.0 mmHg Findings: Left Ventricle: Normal left ventricular wall thickness. Moderate enlargement of left ventricle cavity. Moderate global left ventricular systolic dysfunction. Ejection fraction is visually estimated at 35-40 %. Tissue Doppler/Mitral Doppler indices are consistent with impaired relaxation (Stage I diastolic dysfunction). Right Ventricle: Normal right ventricular size. Normal right ventricular systolic function. Left Atrium: Upper limit of normal left atrial size. Right Atrium: The right atrium is normal in size. Atrial Septum: Normal atrial septum. Mitral Valve: Mild mitral annular calcification. Moderate mitral valve regurgitation. Aortic Valve: No significant aortic stenosis or insufficiency. Moderate aortic valve regurgitation. Tricuspid Valve: Normal appearance of the tricuspid valve. There is trace to mild tricuspid regurgitation. Pulmonic Valve: Pulmonic valve not well visualized. No evidence of pulmonic regurgitation. Pericardium: Normal pericardium with no significant pericardial effusion. Aorta: Normal aortic root. IVC: Normal size and normal respiratory collapse consistent with normal right atrial pressure. Pulmonary Artery: Normal pulmonary artery size. Conclusions: Normal left ventricular wall thickness. Moderate enlargement of left ventricle cavity. Ejection fraction is visually estimated at 35-40 %. Tissue Doppler/Mitral Doppler indices are consistent with impaired relaxation (Stage I diastolic dysfunction). Mild mitral annular calcification. Moderate mitral valve regurgitation. n. No significant aortic stenosis or insufficiency. Moderate aortic valve regurgitation. Normal appearance of the tricuspid valve. There is trace to mild tricuspid regurgitation. Electronically Signed By: Carlos Alicia 2018-12-28 17:22:40 PDT
[2018-12-28] MEDS: CEPASTAT LOZENGE MT PRN (17:36)
[2018-12-29] VITALS (53 sets, daily range): BP systolic 67–141; BP diastolic 29–98; PULSE 63–102; RESP 17–39; Ht 160 cm; Wt 70.0 kg
[2018-12-29] MEDS: INSULIN ASPART [NOVOLOG] 3 ML PEN SC SCH ×6 (01:00→21:10)
[2018-12-29] MEDS: ACCU-CHEK XX SCH (02:00)
[2018-12-29] MEDS ORDERED: VANCOMYCIN IV PER PHARMACY XX SCH (05:30)
[2018-12-29] MEDS ORDERED: PANTOPRAZOLE 40 MG INJ IV SCH (06:00)
[2018-12-29] MEDS: PIPER-TAZO 2.25 GM (PMX) 50 ML IVPB SCH ×3 (06:04→17:37)
[2018-12-29] MEDS: ONDANSETRON 4 MG INJ IV PRN ×2 (06:26→12:30)
[2018-12-29] MEDS ORDERED: VANCOMYCIN HCL 1.5 GM in SOD CHLORIDE 0.9% 250 ML IVPB SCH (06:30)
[2018-12-29] MEDS: ASPIRIN 81 MG TAB PO SCH (08:33)
[2018-12-29] MEDS: CEPASTAT LOZENGE MT PRN ×2 (08:36→21:27)
[2018-12-29] MEDS: FUROSEMIDE 40 MG INJ IV SCH (08:36)
--- NOTE | 2018-12-29 09:24 | RADRPT ---
Vent Rate: 89 bpm RR Interval: 675 msec ND Interval: [id number] msec QRS Duration: 170 msec QT Interval: 462 msec QTC Interval: 562 msec P-R-T [place]: [id number] - 0 - 14 degrees Sinus Rhythm IVCD, consider LBBB...QRSd>120, notch/slur R I aVL V5-6 Electronically Signed By: Tera Wells
--- NOTE | 2018-12-29 09:31 | CONS ---
Assessment/Plan Assessment/Plan Hospital Course (Demo Recall) 83 yo with STEMI/new LBBB, with severe 2V CAD. Also LVEF is moderately reduced at about 35-40% with what to me appears to be severe aortic regurgitation and moderate mitral regurgitation. Imp: [place] with new LBBB, being treated as STEMI acute systolic heart failure, improved Severe aortic regurgitation and at least moderate mitral regurgitation htn, controlled CKD with cr 1.8 on presentation Possible pneumonia, on abx Recommendations: Continue heparin drip through tomorrow Continue asa, carvedilol No peggy/arb due to renal insufficiency Continue statin therapy Case d/w Dr. Freire, ideal treatment would be 2 vessel CABG (GRAF-LAD and SVG- RCA) with aortic valve repair/replacement and possibly mitral valve repair Patient may benefit from a LOUIE to clarify valvular heart disease, will discuss with Dr. Freire 45 minutes spent on care today, including discussion with family and patient with facility coordinator and communication with Dr. Freire regarding the case. Consultation Date/Type/Reason Admit Date/Time December 28, 2018 at 03:23 Initial Consult Date 12/28/18 Type of Consult Cardiology Requesting Provider: ANAM TOMPKINS MD Date/Time of Note DATE: 12/29/18 TIME: 09:19 24 HR Interval Summary Free Text/Dictation Patient seen this am, communicated with her and her via video facility coordinator. She feels some mild chest tightness, at present is not short of breath. Overnight did require bipap. Exam/Review of Systems Vital Signs Vitals Vital Signs Date Temp Pulse Resp B/P (MAP) Pulse Ox O2 O2 Flow FiO2 Time Delivery Rate 12/29/18 76 08:00 12/29/18 30 114/37 97 Nasal 06:45 (62) Cannula 12/29/18 45 05:15 12/29/18 98.2 04:00 12/29/18 5.0 03:52 Intake and Output 12/28/18 12/28/18 12/29/18 1515:00 23:00 07:00 IntakeIntake Total 128.5 ml 206.0 ml 381.1 ml OutputOutput Total 1100 ml 550 ml 370 ml BalanceBalance -971.5 ml -344.0 ml 11.1 ml Exam Constitutional: alert, oriented, well developed Psych: nl mood/affect Head: normocephalic, atraumatic Eyes: EOMI, nl lids, nl sclera ENMT: nl external ears & nose, nl lips & teeth Neck: supple; No jvd, No bruits Respiratory: clear to auscultation, normal air movement Cardiovascular: regular rate and rhythm, murmurs/extra sounds (3/6 systolic murmur) Gastrointestinal: soft, nl liver, spleen, non-tender Musculoskeletal: nl extremities to inspection Extremities: normal pulses Neurological: nl mental status, nl speech Skin: nl turgor; No rash or lesions Labs Result Diagram: 12/29/18 0551 12/29/18 0551 Results 24hrs Laboratory Tests Test 12/28/18 09:51 12/28/18 10:11 12/28/18 12:23 12/28/18 15:30 Bedside Glucose 137 107 Sodium Level 146 H Potassium Level 4.3 Chloride Level 109 Carbon Dioxide 22 Level Anion Gap 15 H Blood Urea 47 H Nitrogen Creatinine 1.82 H Est Glomerular Filtrat Rate mL/min Glucose Level 170 Calcium Level 9.1 Creatine Kinase 290 H Creatine Kinase 6.2 Index Creatinine Kinase 17.90 H MB (Mass) Troponin I 8.170 *H B-Type Natriuretic 14148 H Peptide Urine Color COLORLESS Urine Clarity CLEAR Urine pH 5.0 Urine Specific 1.016 [place] Urine Ketones NEGATIVE Urine Nitrite NEGATIVE Urine Bilirubin NEGATIVE Urine Urobilinogen NEGATIVE Urine Leukocyte NEGATIVE Esterase Urine Microscopic 123 H RBC Urine Microscopic 4 WBC Urine Hemoglobin 3+ H Urine Glucose NEGATIVE Urine Total NEGATIVE Protein Urine Opiates Negative Screen Urine Barbiturates Negative Urine Amphetamines Negative Screen Urine Positive Benzodiazepines Screen Urine Cocaine Negative Screen Urine Cannabinoids Negative Test 12/28/18 17:19 12/28/18 19:02 12/28/18 20:58 12/28/18 22:15 Bedside Glucose 110 129 Activated > 180.0 *H Partial Thrombopla st Time Blood Gas Specimen Blood arterial Source Arterial Blood 12/28/2018 10:15:25 Date Drawn PM Arterial Blood pH 7.447 (Temp corrected) Arterial Blood 35.2 pCO2 (Temp correct) Arterial Blood pO2 80.9 (Temp corrected) Arterial Blood 23.8 HCO3 Arterial Blood 0 Base Excess Arterial Blood 95.4 Oxygen Saturation Francis Test ACCEPTAB Arterial Blood Gas Left Radial Puncture Site Arterial 0.3 Blood Carboxyhemog lobin Arterial Blood 0.3 Methemoglobin Blood Gas A-a O2 236.0 H Differential Oxyhemoglobin 94.8 Percent Blood Gas 37.0 Temperature Blood Gas 20.0 Respiration Rate Blood Gas Actual 24 Respiration Rate Blood Gas Modality MASK - BIPAP FiO2 50.0 Blood Gas Pressure 12 Support Blood Gas 20/8 IPAP/EPAP Ratio Blood Gas Notified JIMMY Whom Blood Gas Notified 12/28/2018 10:29:10 Time PM Test 12/28/18 22:22 12/29/18 00:55 12/29/18 05:51 12/29/18 06:06 Activated 68.1 H 69.[address] Time Bedside Glucose 136 127 White Blood Count 12.4 #H Red Blood Count 2.94 L Hemoglobin 8.8 L Hematocrit 28.1 L Mean Corpuscular 95.6 Volume Mean Corpuscular 29.9 Hemoglobin Mean Corpuscular 31.3 L Hemoglobin Concent Red Cell 17.2 H Distribution Width Platelet Count 267 # Mean Platelet 10.0 Volume Immature 0.600 H Granulocytes % Neutrophils % 85.3 H Lymphocytes % 10.6 L Monocytes % 3.3 Eosinophils % 0.0 Basophils % 0.2 Nucleated Red 0.0 Blood Cells % Immature 0.070 H Granulocytes # Neutrophils # 10.6 H Lymphocytes # 1.3 Monocytes # 0.4 Eosinophils # 0.0 Basophils # 0.0 Nucleated Red 0.0 Blood Cells # Sodium Level 146 H Potassium Level 3.2 L Chloride Level 107 Carbon Dioxide 26 Level Anion Gap 13 Blood Urea 44 H Nitrogen Creatinine 1.84 H Est Glomerular Filtrat Rate mL/min Glucose Level 122 # Hemoglobin A1c 5.7 Calcium Level 9.0 Magnesium Level 2.3 Total Bilirubin 0.3 Direct Bilirubin 0.00 Indirect Bilirubin 0.3 Aspartate Amino 57 H Transf (AST/SGOT) Alanine 25 Aminotransferase ( ALT/SGPT) Alkaline 52 Phosphatase Total Protein 5.7 L Albumin 3.3 Globulin 2.40 Albumin/Globulin 1.37 Ratio Triglycerides 145 Level Cholesterol Level 109 LDL Cholesterol, 38 Calculated HDL Cholesterol 42 Cholesterol/HDL 2.5 Ratio Thyroid 2.170 Stimulating Hormone (TSH) Test 12/29/18 07:42 Bedside Glucose 116 Medications Medications Current Medications IV Flush (NS 3 ml) 3 ml PER PROTOCOL IV ; Start 12/28/18 at 04:30 Ondansetron HCl (Zofran Inj) 4 mg Q6H PRN IV NAUSEA/VOMITING Last administered on 12/29/18at 06:26; Admin Dose 4 MG; Start 12/28/18 at 04:30 Aspirin (Aspirin) 81 mg DAILY PO Last administered on 12/29/18at 08:33; Admin Dose 81 MG; Start 12/28/18 at 09:00 Furosemide (Lasix) 20 mg DAILY IV Last administered on 12/29/18at 08:36; Admin Dose 20 MG; Start 12/28/18 at 09:00 Nitroglycerin (Nitroglycerin (Sl Tab) 0.4 Mg) 1 tab Q5M PRN SL .CHEST PAIN Last administered on 12/28/18at 09:55; Admin Dose 1 TAB; Start 12/28/18 at 04:30 Diagnostic Test (Pha) (Accu-Chek) 1 ea 02 XX ; Start 12/29/18 at 02:00 Insulin Aspart (Novolog Insulin Pen) NOVOLOG *MODERATE* ALGORI... Q4 SC ; Start 12/28/18 at 05:00 Miscellaneous Information 1 ea NOTE XX ; Start 12/28/18 at 05:00 Glucose (Glutose) 15 gm Q15M PRN PO DECREASED GLUCOSE; Start 12/28/18 at 05:00 Glucose (Glutose) 22.5 gm Q15M PRN PO DECREASED GLUCOSE; Start 12/28/18 at 05:00 Dextrose (D50w Syringe) 25 ml Q15M PRN IV DECREASED GLUCOSE; Start 12/28/18 at 05:00 Dextrose (D50w Syringe) 50 ml Q15M PRN IV DECREASED GLUCOSE; Start 12/28/18 at 0 5:00 Glucagon (Glucagen) 1 mg Q15M PRN IM DECREASED GLUCOSE; Start 12/28/18 at 05:00 Glucose (Glutose) 15 gm Q15M PRN BUCCAL DECREASED GLUCOSE; Start 12/28/18 at 05:00 Nitroglycerin/ Dextrose 250 ml @ 5 mls/hr TITRATE IV Last administered on 12/28/18at 12:35; Admin Dose 5 MLS/HR; Start 12/28/18 at 10:30 Miscellaneous Information (* Miscellaneous Pharmacy Order) HOLD all METFORMIN ... ONCE XX ; Start 12/28/18 at 12:00; Stop 12/30/18 at 11:59 Heparin Sodium (Porcine) (Heparin (1000 Units/ml)) 4,000 unit PER PROTOCOL PRN IV aPTT<47; Start 12/28/18 at 13:00 Carvedilol (Coreg) 6.25 mg BID PO Last administered on 12/28/18at 21:36; Admin Dose 6.25 MG; Start 12/28/18 at 13:00 Atorvastatin Calcium (Lipitor) 80 mg HS PO ; Start 12/29/18 at 21:00 Heparin Sodium (Porcine) 250 ml @ 8.5 mls/hr Q24H IV Last administered on 12/28/18at 14:12; Admin Dose 8.5 MLS/HR; Start 12/28/18 at 13:48 Pantoprazole (Protonix Iv) 40 mg DAILY@06 IV Last administered on 12/29/18 06:04; Admin Dose 40 MG; Start 12/29/18 at 06:00 Piperacillin Sod/ Tazobactam Sod 50 ml @ 100 mls/hr Q6 IVPB Last administered on 12/29/18at 06:04; Admin Dose 100 MLS/HR; Start 12/28/18 at 18:00 Phenol (Cepastat Lozenge) 1 lozenge Q1H PRN MT COUGH Last administered on 12/29/18at 08:36; Admin Dose 1 LOZENGE; Start 12/28/18 at 17:30 Vancomycin HCl (Vanco Iv Per Pharmacy) VANCOMYCIN PER PHARMACY PER PROTOCOL XX ; Start 12/29/18 at 05:30 Vancomycin HCl 1.5 gm/Sodium Chloride 250 ml @ 83.333 mls/ hr ONCE IVPB Last administered on 12/29/18at 06:37; Admin Dose 83.333 MLS/HR; Start 12/29/18 at 06:30; Stop 12/29/18 at 09:29 RODRIGUEZ GARZA December 29, 2018 09:31
[2018-12-29] MEDS: POTASSIUM CHLORIDE (SR) 20 MEQ TAB PO SCH ×2 (09:33→21:08)
--- NOTE | 2018-12-29 10:18 | PN ---
Date/Time of Note Date/Time of Note DATE: 12/29/18 TIME: 10:18 Assessment/Plan VTE Prophylaxis Risk score (from [place])>0 risk: 10 SCD applied (from [facility] [place] No SCD contraindicated: other Pharmacological prophylaxis: heparin Lines/Catheters IV Catheter Type (from [facility]): Peripheral IV Urinary Cath still in place: Yes Reason Cath still needed: urinary retention Assessment/Plan Hospital Course S: Patient still on heparin drip, seen by cardiology team this morning. Per nursing staff tolerating diet. O:Vs - see below PE: Gen: Frail appearing elderly woman lying in bed, awake HEENT: PERRL, no icterus, moist mucous membranes, clear oropharynx Neck: Supple Card: Regular rate and rhythm, no murmurs appreciated Pulm: + rales Abd: Soft, nontender, nondistended. Ext: No LE edema B/L Date/Time of Note Date/Time of Note DATE: 12/28/18 TIME: 11:48 Operative Report Procedure Date: December 28, 2018 Preoperative Diagnosis STEMI, new LBBB Postoperative Diagnosis Sever 2 vessel CAD, LAD and RCA, LAD is culprit with francine 2 flow, and cardiomyo phoebe with LVEF 35% Operation/Procedure Performed Coronary angiography Left heart catheterization Left ventriculography Moderate sedation with versed and fentanyl Assessment/Plan: 83 yo [place]-speaking woman with history of dementia, hypertension, dyslipidemia, severe MR and aortic stenosis, arrhythmia who presents with ACS and multi-vessel coronary artery disease. #Acute [place]- possible STEMI with LBBB - patient had cardiac cath on 12/28, found with: Severe 2 vessel CAD, LAD and RCA, LAD is culprit with francine 2 flow, and cardiomyopathy with LVEF 35%. Again patient also with severe aortic regurgitation and at least moderate mitral regurgitation. - Continue heparin gtt (through tomorrow), as well as aspirin, Lipitor, beta- geovanny, statin - Per cardiology team Dr. Alvarenga and CTS Dr. Freire, patient ideally would need 2 vessel CABG (GRAF-LAD and SVG-RCA) with aortic valve repair/replacement and possibly mitral valve repair, likely in the next few days. Per cardiology team, patient may also benefit from a LOUIE to clarify valvular heart disease #Acute CHF exacerbation -slowly improving - likely due to acute ischemic CAD/STEMI -status post nitro gtt earlier this admission, now off this. -Continue NIPPV as needed for pulmonary edema. - Cautious loop diuresis, monitor BUN/creatinine levels #Bacteremia: 2 out of 2 bottles positive for gram-positive cocci. Patient also being treated for likely upper respiratory infection -Continue broad-spectrum antibiotic, follow final culture results. #WILLIAM: Creatinine has been in the 1.8 range since admission. Unknown baseline. Has been on low-dose IV Lasix -We will continue to monitor and get renal consult as well DVT: heparin gtt GI: PPI Critical care time spent in patient care today equals 50 minutes. Result Diagram: 12/29/18 0551 12/29/18 0551 Results 24hrs Laboratory Tests Test 12/28/18 12:23 12/28/18 15:30 12/28/18 17:19 12/28/18 19:02 Bedside Glucose 107 110 Urine Color COLORLESS Urine Clarity CLEAR Urine pH 5.0 Urine Specific 1.016 [place] Urine Ketones NEGATIVE Urine Nitrite NEGATIVE Urine Bilirubin NEGATIVE Urine Urobilinogen NEGATIVE Urine Leukocyte NEGATIVE Esterase Urine Microscopic 123 H RBC Urine Microscopic 4 WBC Urine Hemoglobin 3+ H Urine Glucose NEGATIVE Urine Total NEGATIVE Protein Urine Opiates Negative Screen Urine Barbiturates Negative Urine Amphetamines Negative Screen Urine Positive Benzodiazepines Screen Urine Cocaine Negative Screen Urine Cannabinoids Negative Activated > 180.0 *H Partial Thrombopla st Time Test 12/28/18 20:58 12/28/18 22:15 12/28/18 22:22 12/29/18 00:55 Bedside Glucose 129 136 Blood Gas Specimen Blood arterial Source Arterial Blood 12/28/2018 10:15:25 Date Drawn PM Arterial Blood pH 7.447 (Temp corrected) Arterial Blood 35.2 pCO2 (Temp correct) Arterial Blood pO2 80.9 (Temp corrected) Arterial Blood 23.8 HCO3 Arterial Blood 0 Base Excess Arterial Blood 95.4 Oxygen Saturation Francis Test ACCEPTAB Arterial Blood Gas Left Radial Puncture Site Arterial 0.3 Blood Carboxyhemog lobin Arterial Blood 0.3 Methemoglobin Blood Gas A-a O2 236.0 H Differential Oxyhemoglobin 94.8 Percent Blood Gas 37.0 Temperature Blood Gas 20.0 Respiration Rate Blood Gas Actual 24 Respiration Rate Blood Gas Modality MASK - BIPAP FiO2 50.0 Blood Gas Pressure 12 Support Blood Gas 20/8 IPAP/EPAP Ratio Blood Gas Notified [facility] Blood Gas Notified 12/28/2018 10:29:10 Time PM Activated 68.[address] Time Test 12/29/18 05:51 12/29/18 06:06 12/29/18 07:42 White Blood Count 12.4 #H Red Blood Count 2.94 L Hemoglobin 8.8 L Hematocrit 28.1 L Mean Corpuscular 95.6 Volume Mean Corpuscular 29.9 Hemoglobin Mean Corpuscular 31.3 L Hemoglobin Concent Red Cell 17.2 H Distribution Width Platelet Count 267 # Mean Platelet 10.0 Volume Immature 0.600 H Granulocytes % Neutrophils % 85.3 H Lymphocytes % 10.6 L Monocytes % 3.3 Eosinophils % 0.0 Basophils % 0.2 Nucleated Red 0.0 Blood Cells % Immature 0.070 H Granulocytes # Neutrophils # 10.6 H Lymphocytes # 1.3 Monocytes # 0.4 Eosinophils # 0.0 Basophils # 0.0 Nucleated Red 0.0 Blood Cells # Activated 69.[address] Time Sodium Level 146 H Potassium Level 3.2 L Chloride Level 107 Carbon Dioxide 26 Level Anion Gap 13 Blood Urea 44 H Nitrogen Creatinine 1.84 H Est Glomerular Filtrat Rate mL/min Glucose Level 122 # Hemoglobin A1c 5.7 Calcium Level 9.0 Magnesium Level 2.3 Total Bilirubin 0.3 Direct Bilirubin 0.00 Indirect Bilirubin 0.3 Aspartate Amino 57 H Transf (AST/SGOT) Alanine 25 Aminotransferase ( ALT/SGPT) Alkaline 52 Phosphatase Total Protein 5.7 L Albumin 3.3 Globulin 2.40 Albumin/Globulin 1.37 Ratio Triglycerides 145 Level Cholesterol Level 109 LDL Cholesterol, 38 Calculated HDL Cholesterol 42 Cholesterol/HDL 2.5 Ratio Thyroid 2.170 Stimulating Hormone (TSH) Bedside Glucose 127 116 Exam/Review of Systems Exam Vitals Vital Signs Date Temp Pulse Resp B/P (MAP) Pulse Ox O2 O2 Flow FiO2 Time Delivery Rate 12/29/18 76 21 110/40 96 09:30 (63) 12/29/18 Nasal 09:00 Cannula 12/29/18 97.9 08:00 12/29/18 5.0 08:00 12/29/18 45 05:15 Intake and Output 12/28/18 12/28/18 12/29/18 1515:00 23:00 07:00 IntakeIntake Total 128.5 ml 206.0 ml 387.4 ml OutputOutput Total 1100 ml 550 ml 370 ml BalanceBalance -971.5 ml -344.0 ml 17.4 ml Results Results 24hrs Laboratory Tests Test 12/28/18 12:23 12/28/18 15:30 12/28/18 17:19 12/28/18 19:02 Bedside Glucose 107 110 Urine Color COLORLESS Urine Clarity CLEAR Urine pH 5.0 Urine Specific 1.016 [place] Urine Ketones NEGATIVE Urine Nitrite NEGATIVE Urine Bilirubin NEGATIVE Urine Urobilinogen NEGATIVE Urine Leukocyte NEGATIVE Esterase Urine Microscopic 123 H RBC Urine Microscopic 4 WBC Urine Hemoglobin 3+ H Urine Glucose NEGATIVE Urine Total NEGATIVE Protein Urine Opiates Negative Screen Urine Barbiturates Negative Urine Amphetamines Negative Screen Urine Positive Benzodiazepines Screen Urine Cocaine Negative Screen Urine Cannabinoids Negative Activated > 180.0 *H Partial Thrombopla st Time Test 12/28/18 20:58 12/28/18 22:15 12/28/18 22:22 12/29/18 00:55 Bedside Glucose 129 136 Blood Gas Specimen Blood arterial Source Arterial Blood 12/28/2018 10:15:25 Date Drawn PM Arterial Blood pH 7.447 (Temp corrected) Arterial Blood 35.2 pCO2 (Temp correct) Arterial Blood pO2 80.9 (Temp corrected) Arterial Blood 23.8 HCO3 Arterial Blood 0 Base Excess Arterial Blood 95.4 Oxygen Saturation Francis Test ACCEPTAB Arterial Blood Gas Left Radial Puncture Site Arterial 0.3 Blood Carboxyhemog lobin Arterial Blood 0.3 Methemoglobin Blood Gas A-a O2 236.0 H Differential Oxyhemoglobin 94.8 Percent Blood Gas 37.0 Temperature Blood Gas 20.0 Respiration Rate Blood Gas Actual 24 Respiration Rate Blood Gas Modality MASK - BIPAP FiO2 50.0 Blood Gas Pressure 12 Support Blood Gas 20/8 IPAP/EPAP Ratio Blood Gas Notified [facility] Blood Gas Notified 12/28/2018 10:29:10 Time PM Activated 68.[address] Time Test 12/29/18 05:51 12/29/18 06:06 12/29/18 07:42 White Blood Count 12.4 #H Red Blood Count 2.94 L Hemoglobin 8.8 L Hematocrit 28.1 L Mean Corpuscular 95.6 Volume Mean Corpuscular 29.9 Hemoglobin Mean Corpuscular 31.3 L Hemoglobin Concent Red Cell 17.2 H Distribution Width Platelet Count 267 # Mean Platelet 10.0 Volume Immature 0.600 H Granulocytes % Neutrophils % 85.3 H Lymphocytes % 10.6 L Monocytes % 3.3 Eosinophils % 0.0 Basophils % 0.2 Nucleated Red 0.0 Blood Cells % Immature 0.070 H Granulocytes # Neutrophils # 10.6 H Lymphocytes # 1.3 Monocytes # 0.4 Eosinophils # 0.0 Basophils # 0.0 Nucleated Red 0.0 Blood Cells # Activated 69.[address] Time Sodium Level 146 H Potassium Level 3.2 L Chloride Level 107 Carbon Dioxide 26 Level Anion Gap 13 Blood Urea 44 H Nitrogen Creatinine 1.84 H Est Glomerular Filtrat Rate mL/min Glucose Level 122 # Hemoglobin A1c 5.7 Calcium Level 9.0 Magnesium Level 2.3 Total Bilirubin 0.3 Direct Bilirubin 0.00 Indirect Bilirubin 0.3 Aspartate Amino 57 H Transf (AST/SGOT) Alanine 25 Aminotransferase ( ALT/SGPT) Alkaline 52 Phosphatase Total Protein 5.7 L Albumin 3.3 Globulin 2.40 Albumin/Globulin 1.37 Ratio Triglycerides 145 Level Cholesterol Level 109 LDL Cholesterol, 38 Calculated HDL Cholesterol 42 Cholesterol/HDL 2.5 Ratio Thyroid 2.170 Stimulating Hormone (TSH) Bedside Glucose 127 116 Medications Medication Current Medications IV Flush (NS 3 ml) 3 ml PER PROTOCOL IV ; Start 12/28/18 at 04:30 Ondansetron HCl (Zofran Inj) 4 mg Q6H PRN IV NAUSEA/VOMITING Last administered on 12/29/18at 06:26; Admin Dose 4 MG; Start 12/28/18 at 04:30 Aspirin (Aspirin) 81 mg DAILY PO Last administered on 12/29/18at 08:33; Admin Dose 81 MG; Start 12/28/18 at 09:00 Furosemide (Lasix) 20 mg DAILY IV Last administered on 12/29/18at 08:36; Admin Dose 20 MG; Start 12/28/18 at 09:00 Nitroglycerin (Nitroglycerin (Sl Tab) 0.4 Mg) 1 tab Q5M PRN SL .CHEST PAIN Last administered on 12/28/18at 09:55; Admin Dose 1 TAB; Start 12/28/18 at 04:30 Diagnostic Test (Pha) (Accu-Chek) 1 ea 02 XX ; Start 12/29/18 at 02:00 Insulin Aspart (Novolog Insulin Pen) NOVOLOG *MODERATE* ALGORI... Q4 SC ; Start 12/28/18 at 05:00 Miscellaneous Information 1 ea NOTE XX ; Start 12/28/18 at 05:00 Glucose (Glutose) 15 gm Q15M PRN PO DECREASED GLUCOSE; Start 12/28/18 at 05:00 Glucose (Glutose) 22.5 gm Q15M PRN PO DECREASED GLUCOSE; Start 12/28/18 at 05:00 Dextrose (D50w Syringe) 25 ml Q15M PRN IV DECREASED GLUCOSE; Start 12/28/18 at 05:00 Dextrose (D50w Syringe) 50 ml Q15M PRN IV DECREASED GLUCOSE; Start 12/28/18 at 05:00 Glucagon (Glucagen) 1 mg Q15M PRN IM DECREASED GLUCOSE; Start 12/28/18 at 05:00 Glucose (Glutose) 15 gm Q15M PRN BUCCAL DECREASED GLUCOSE; Start 12/28/18 at 05:00 Miscellaneous Information (* Miscellaneous Pharmacy Order) HOLD all METFORMIN ... ONCE XX ; Start 12/28/18 at 12:00; Stop 12/30/18 at 11:59 Heparin Sodium (Porcine) (Heparin (1000 Units/ml)) 4,000 unit PER PROTOCOL PRN IV aPTT<47; Start 12/28/18 at 13:00 Carvedilol (Coreg) 6.25 mg BID PO Last administered on 12/29/18at 09:33; Admin Dose 6.25 MG; Start 12/28/18 at 13:00 Atorvastatin Calcium (Lipitor) 80 mg HS PO ; Start 12/29/18 at 21:00 Heparin Sodium (Porcine) 250 ml @ 8.5 mls/hr Q24H IV Last administered on 12/28/18at 14:12; Admin Dose 8.5 MLS/HR; Start 12/28/18 at 13:48 Pantoprazole (Protonix Iv) 40 mg DAILY@06 IV Last administered on 12/29/18at 06:04; Admin Dose 40 MG; Start 12/29/18 at 06:00 Piperacillin Sod/ Tazobactam Sod 50 ml @ 100 mls/hr Q6 IVPB Last administered on 12/29/18at 06:04; Admin Dose 100 MLS/HR; Start 12/28/18 at 18:00 Phenol (Cepastat Lozenge) 1 lozenge Q1H PRN MT COUGH Last administered on 12/29/18at 08:36; Admin Dose 1 LOZENGE; Start 12/28/18 at 17:30 Vancomycin HCl (Vanco Iv Per Pharmacy) VANCOMYCIN PER PHARMACY PER PROTOCOL XX ; Start 12/29/18 at 05:30 Potassium Chloride (Klor-Con 20) 20 meq BID PO Last administered on 12/29/18at 09:33; Admin Dose 20 MEQ; Start 12/29/18 at 09:00; Stop 12/30/18 at 01:00 Escitalopram Oxalate (Lexapro) 10 mg DAILY PO ; Start 12/29/18 at 09:30 Risedronate (Actonel) 35 mg Tu@AC BREAKFAST PO ; Start 12/30/18 at 07:00 Mirtazapine (Remeron) 15 mg HS PO ; Start 12/29/18 at 21:00 KRYSTAL BERNARD December 29, 2018 10:18
[2018-12-29] MEDS: ESCITALOPRAM 10 MG TAB PO SCH (10:33)
[2018-12-29] MEDS: HOLD all METFORMIN and METFORMIN CONTAINING medications for 48 hours post procedure. Chec XX SCH (12:00)
--- NOTE | 2018-12-29 12:09 | CONS ---
Assessment/Plan Assessment/Plan Assessment/Plan (Daily) 1. Acute kidney injury 2. Hypokalemia 3. Hypernatremia 4. acute NSTEMI 5. 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 and they understood well, All questions are answered.They understood it and Agreed to have CABG if indicated Pt also has bacteremia so need to have negaitve blood cx prior to surgery As per Nurse possible LOUIE plan tomorrow Consultation Date/Type/Reason Admit Date/Time December 28, 2018 at 03:23 Date of Consultation: December 29, 2018 Type of Consult NEPHROLOGY Reason for Consultation acute on chronic renal failure , NSTEMI Requesting Provider: KRYSTAL BERNARD Date/Time of Note DATE: 12/29/18 TIME: 12:09 Hx of Present Illness 83 yo Palauan-speaking woman with history of dementia, hypertension, dyslipidemia, severe MR and aortic stenosis, arrhythmia who presents with ACS and multi-vessel coronary artery disease.pt is goign to need CABG, pt also has acute CHF exacerbation and Acute bactremia with 2/2 blood cx positive for Gram positive cocci- renal johnson sbeen consulted for Elevated BUN/Cr 44/1.84,K 3.2- Renal has been consulted for acute on chronic renal failure Constitutional: no complaints Eyes: no complaints ENT: no complaints Respiratory: pain, pleuritic pain, shortness of breath Cardiovascular: no complaints Gastrointestinal: no complaints Genitourinary: no complaints Musculoskeletal: no complaints Skin: no complaints Neurologic: no complaints Endocrine: no complaints Lymphatic: no complaints Psychological: no complaints Immunologic: no complaints Past Medical History Medical History: congestive heart failure, coronary artery disease, diabetes, high cholesterol, hypertension Home Meds Reported Medications Atenolol* (Atenolol*) 25 Mg Tablet, 25 MG PO DAILY, #30 TAB 12/29/18 Icosapent Ethyl (VASCEPA) 1 Gm Capsule, 2 GM PO BID, CAP 12/29/18 Linagliptin (TRADJENTA) 5 Mg Tablet, 5 MG PO DAILY, TAB 12/29/18 Risedronate* (Actonel*) 35 Mg Tablet, 35 MG PO Q7D, #4 TAB 12/29/18 Dexlansoprazole (Dexilant) 60 Mg Cap., 60 MG PO DAILY, #30 CAP 12/29/18 Fenofibrate Nanocrystallized* (Fenofibrate*) 145 Mg Tablet, 145 MG PO DAILY, TAB 12/29/18 Rosuvastatin Calcium* (Crestor*) 40 Mg Tablet, 40 MG PO QHS, #30 TAB 12/29/18 Escitalopram Oxalate* (Lexapro*) 10 Mg Tablet, 10 MG PO DAILY, #30 TAB 12/29/18 Mirtazapine* (Mirtazapine*) 15 Mg Tablet, 15 MG PO HS, TAB 12/29/18 Tramadol Hcl* (Ultram*) 50 Mg Tablet, 50 MG PO Q6H PRN for PAIN, TAB 12/29/18 Furosemide* (Furosemide*) 40 Mg Tablet, 40 MG PO DAILY, TAB 12/29/18 Allopurinol* (Allopurinol*) 300 Mg Tablet, 300 MG PO DAILY, TAB 12/29/18 Folic Acid* (Folic Acid*) 1 Mg Tablet, 1 MG PO DAILY, TAB 12/29/18 Ergocalciferol (Vitamin D2) (VITAMIN D2) 50,000 Unit Capsule, 33988 UNIT PO ONCE A WEEK, CAP 12/29/18 Ferrous Sulfate* (Ferrous Sulfate*) 325 Mg Tabec, 325 MG PO TID, TAB 12/29/18 Hydralazine Hcl* (Apresoline*) 50 Mg Tab, 50 MG PO TID, #90 TAB 12/29/18 Medications Current Medications IV Flush (NS 3 ml) 3 ml PER PROTOCOL IV ; Start 12/28/18 at 04:30 Ondansetron HCl (Zofran Inj) 4 mg Q6H PRN IV NAUSEA/VOMITING Last administered on 12/29/18at 06:26; Admin Dose 4 MG; Start 12/28/18 at 04:30 Aspirin (Aspirin) 81 mg DAILY PO Last administered on 12/29/18at 08:33; Admin Dose 81 MG; Start 12/28/18 at 09:00 Furosemide (Lasix) 20 mg DAILY IV Last administered on 12/29/18at 08:36; Admin Dose 20 MG; Start 12/28/18 at 09:00 Nitroglycerin (Nitroglycerin (Sl Tab) 0.4 Mg) 1 tab Q5M PRN SL .CHEST PAIN Last administered on 12/28/18at 09:55; Admin Dose 1 TAB; Start 12/28/18 at 04:30 Diagnostic Test (Pha) (Accu-Chek) 1 ea 02 XX ; Start 12/29/18 at 02:00 Insulin Aspart (Novolog Insulin Pen) NOVOLOG *MODERATE* ALGORI... Q4 SC ; Start 12/28/18 at 05:00 Miscellaneous Information 1 ea NOTE XX ; Start 12/28/18 at 05:00 Glucose (Glutose) 15 gm Q15M PRN PO DECREASED GLUCOSE; Start 12/28/18 at 05:00 Glucose (Glutose) 22.5 gm Q15M PRN PO DECREASED GLUCOSE; Start 12/28/18 at 05:00 Dextrose (D50w Syringe) 25 ml Q15M PRN IV DECREASED GLUCOSE; Start 12/28/18 at 05:00 Dextrose (D50w Syringe) 50 ml Q15M PRN IV DECREASED GLUCOSE; Start 12/28/18 at 05:00 Glucagon (Glucagen) 1 mg Q15M PRN IM DECREASED GLUCOSE; Start 12/28/18 at 05:00 Glucose (Glutose) 15 gm Q15M PRN BUCCAL DECREASED GLUCOSE; Start 12/28/18 at 05:00 Miscellaneous Information (* Miscellaneous Pharmacy Order) HOLD all METFORMIN ... ONCE XX ; Start 12/28/18 at 12:00; Stop 12/30/18 at 11:59 Heparin Sodium (Porcine) (Heparin (1000 Units/ml)) 4,000 unit PER PROTOCOL PRN IV aPTT<47; Start 12/28/18 at 13:00 Carvedilol (Coreg) 6.25 mg BID PO Last administered on 12/29/18at 09:33; Admin Dose 6.25 MG; Start 12/28/18 at 13:00 Atorvastatin Calcium (Lipitor) 80 mg HS PO ; Start 12/29/18 at 21:00 Heparin Sodium (Porcine) 250 ml @ 8.5 mls/hr Q24H IV Last administered on 12/28/18at 14:12; Admin Dose 8.5 MLS/HR; Start 12/28/18 at 13:48 Pantoprazole (Protonix Iv) 40 mg DAILY@06 IV Last administered on 12/29/18at 06:04; Admin Dose 40 MG; Start 12/29/18 at 06:00 Piperacillin Sod/ Tazobactam Sod 50 ml @ 100 mls/hr Q6 IVPB Last administered on 12/29/18at 06:04; Admin Dose 100 MLS/HR; Start 12/28/18 at 18:00 Phenol (Cepastat Lozenge) 1 lozenge Q1H PRN MT COUGH Last administered on 12/29/18at 08:36; Admin Dose 1 LOZENGE; Start 12/28/18 at 17:30 Vancomycin HCl (Vanco Iv Per Pharmacy) VANCOMYCIN PER PHARMACY PER PROTOCOL XX ; Start 12/29/18 at 05:30 Potassium Chloride (Klor-Con 20) 20 meq BID PO Last administered on 12/29/18at 09:33; Admin Dose 20 MEQ; Start 12/29/18 at 09:00; Stop 12/30/18 at 01:00 Escitalopram Oxalate (Lexapro) 10 mg DAILY PO Last administered on 12/29/18at 10:33; Admin Dose 10 MG; Start 12/29/18 at 09:30 Risedronate (Actonel) 35 mg Tu@AC BREAKFAST PO ; Start 12/30/18 at 07:00 Mirtazapine (Remeron) 15 mg HS PO ; Start 12/29/18 at 21:00 Allergies: Coded Allergies: No Known Allergy (Unverified , 12/29/18) Past Surgical History Past Surgical Hx: other Family History Significant Family History: no pertinent family hx Social History Alcohol Use: none Smoking Status: Never smoker Drug Use: none Exam/Review of Systems Exam Vitals Vital Signs Date Temp Pulse Resp B/P (MAP) Pulse Ox O2 O2 Flow FiO2 Time Delivery Rate 12/29/18 76 21 110/40 96 09:30 (63) 12/29/18 Nasal 09:00 Cannula 12/29/18 97.9 08:00 12/29/18 5.0 08:00 12/29/18 45 05:15 Intake and Output 12/28/18 12/28/18 12/29/18 1515:00 23:00 07:00 IntakeIntake Total 128.5 ml 206.0 ml 387.4 ml OutputOutput Total 1100 ml 550 ml 370 ml BalanceBalance -971.5 ml -344.0 ml 17.4 ml Exam Gen: Frail appearing elderly woman in some respiratory disease on BiPAP Eyes: PERRL, no icterus HEENT: Moist mucous membranes, clear oropharynx Neck: No JVD, no lymphadenopathy Card: Regular rate and rhythm, no murmurs appreciated Pulm: Rales throughout. Mild respiratory distress on BiPAP. Abd: Soft, nontender, nondistended. Ext: No cyanosis/clubbing/edema. Results Result Diagram: 12/29/18 0551 12/29/18 0551 Results 24hrs Laboratory Tests Test 12/28/18 12:23 12/28/18 15:30 12/28/18 17:19 12/28/18 19:02 Bedside Glucose 107 110 Urine Color COLORLESS Urine Clarity CLEAR Urine pH 5.0 Urine Specific 1.016 [place] Urine Ketones NEGATIVE Urine Nitrite NEGATIVE Urine Bilirubin NEGATIVE Urine Urobilinogen NEGATIVE Urine Leukocyte NEGATIVE Esterase Urine Microscopic 123 H RBC Urine Microscopic 4 WBC Urine Hemoglobin 3+ H Urine Glucose NEGATIVE Urine Total NEGATIVE Protein Urine Opiates Negative Screen Urine Barbiturates Negative Urine Amphetamines Negative Screen Urine Positive Benzodiazepines Screen Urine Cocaine Negative Screen Urine Cannabinoids Negative Activated > 180.0 *H Partial Thrombopla st Time Test 12/28/18 20:58 12/28/18 22:15 12/28/18 22:22 12/29/18 00:55 Bedside Glucose 129 136 Blood Gas Specimen Blood arterial Source Arterial Blood 12/28/2018 10:15:25 Date Drawn PM Arterial Blood pH 7.447 (Temp corrected) Arterial Blood 35.2 pCO2 (Temp correct) Arterial Blood pO2 80.9 (Temp corrected) Arterial Blood 23.8 HCO3 Arterial Blood 0 Base Excess Arterial Blood 95.4 Oxygen Saturation Francis Test ACCEPTAB Arterial Blood Gas Left Radial Puncture Site Arterial 0.3 Blood Carboxyhemog lobin Arterial Blood 0.3 Methemoglobin Blood Gas A-a O2 236.0 H Differential Oxyhemoglobin 94.8 Percent Blood Gas 37.0 Temperature Blood Gas 20.0 Respiration Rate Blood Gas Actual 24 Respiration Rate Blood Gas Modality MASK - BIPAP FiO2 50.0 Blood Gas Pressure 12 Support Blood Gas 20/8 IPAP/EPAP Ratio Blood Gas Notified DC Whom Blood Gas Notified 12/28/2018 10:29:10 Time PM Activated 68.[address] Time Test 12/29/18 05:51 12/29/18 06:06 12/29/18 07:42 White Blood Count 12.4 #H Red Blood Count 2.94 L Hemoglobin 8.8 L Hematocrit 28.1 L Mean Corpuscular 95.6 Volume Mean Corpuscular 29.9 Hemoglobin Mean Corpuscular 31.3 L Hemoglobin Concent Red Cell 17.2 H Distribution Width Platelet Count 267 # Mean Platelet 10.0 Volume Immature 0.600 H Granulocytes % Neutrophils % 85.3 H Lymphocytes % 10.6 L Monocytes % 3.3 Eosinophils % 0.0 Basophils % 0.2 Nucleated Red 0.0 Blood Cells % Immature 0.070 H Granulocytes # Neutrophils # 10.6 H Lymphocytes # 1.3 Monocytes # 0.4 Eosinophils # 0.0 Basophils # 0.0 Nucleated Red 0.0 Blood Cells # Activated 69.[address] Time Sodium Level 146 H Potassium Level 3.2 L Chloride Level 107 Carbon Dioxide 26 Level Anion Gap 13 Blood Urea 44 H Nitrogen Creatinine 1.84 H Est Glomerular Filtrat Rate mL/min Glucose Level 122 # Hemoglobin A1c 5.7 Calcium Level 9.0 Magnesium Level 2.3 Total Bilirubin 0.3 Direct Bilirubin 0.00 Indirect Bilirubin 0.3 Aspartate Amino 57 H Transf (AST/SGOT) Alanine 25 Aminotransferase ( ALT/SGPT) Alkaline 52 Phosphatase Total Protein 5.7 L Albumin 3.3 Globulin 2.40 Albumin/Globulin 1.37 Ratio Triglycerides 145 Level Cholesterol Level 109 LDL Cholesterol, 38 Calculated HDL Cholesterol 42 Cholesterol/HDL 2.5 Ratio Thyroid 2.170 Stimulating Hormone (TSH) Bedside Glucose 127 116 Medications Medication Current Medications IV Flush (NS 3 ml) 3 ml PER PROTOCOL IV ; Start 12/28/18 at 04:30 Ondansetron HCl (Zofran Inj) 4 mg Q6H PRN IV NAUSEA/VOMITING Last administered on 12/29/18at 06:26; Admin Dose 4 MG; Start 12/28/18 at 04:30 Aspirin (Aspirin) 81 mg DAILY PO Last administered on 12/29/18at 08:33; Admin Dose 81 MG; Start 12/28/18 at 09:00 Furosemide (Lasix) 20 mg DAILY IV Last administered on 12/29/18at 08:36; Admin Dose 20 MG; Start 12/28/18 at 09:00 Nitroglycerin (Nitroglycerin (Sl Tab) 0.4 Mg) 1 tab Q5M PRN SL .CHEST PAIN Last administered on 12/28/18at 09:55; Admin Dose 1 TAB; Start 12/28/18 at 04:30 Diagnostic Test (Pha) (Accu-Chek) 1 ea 02 XX ; Start 12/29/18 at 02:00 Insulin Aspart (Novolog Insulin Pen) NOVOLOG *MODERATE* ALGORI... Q4 SC ; Start 12/28/18 at 05:00 Miscellaneous Information 1 ea NOTE XX ; Start 12/28/18 at 05:00 Glucose (Glutose) 15 gm Q15M PRN PO DECREASED GLUCOSE; Start 12/28/18 at 05:00 Glucose (Glutose) 22.5 gm Q15M PRN PO DECREASED GLUCOSE; Start 12/28/18 at 05:00 Dextrose (D50w Syringe) 25 ml Q15M PRN IV DECREASED GLUCOSE; Start 12/28/18 at 05:00 Dextrose (D50w Syringe) 50 ml Q15M PRN IV DECREASED GLUCOSE; Start 12/28/18 at 05:00 Glucagon (Glucagen) 1 mg Q15M PRN IM DECREASED GLUCOSE; Start 12/28/18 at 05:00 Glucose (Glutose) 15 gm Q15M PRN BUCCAL DECREASED GLUCOSE; Start 12/28/18 at 05:00 Miscellaneous Information (* Miscellaneous Pharmacy Order) HOLD all METFORMIN ... ONCE XX ; Start 12/28/18 at 12:00; Stop 12/30/18 at 11:59 Heparin Sodium (Porcine) (Heparin (1000 Units/ml)) 4,000 unit PER PROTOCOL PRN IV aPTT<47; Start 12/28/18 at 13:00 Carvedilol (Coreg) 6.25 mg BID PO Last administered on 12/29/18at 09:33; Admin Dose 6.25 MG; Start 12/28/18 at 13:00 Atorvastatin Calcium (Lipitor) 80 mg HS PO ; Start 12/29/18 at 21:00 Heparin Sodium (Porcine) 250 ml @ 8.5 mls/hr Q24H IV Last administered on 12/28/18at 14:12; Admin Dose 8.5 MLS/HR; Start 12/28/18 at 13:48 Pantoprazole (Protonix Iv) 40 mg DAILY@06 IV Last administered on 12/29/18at 06:04; Admin Dose 40 MG; Start 12/29/18 at 06:00 Piperacillin Sod/ Tazobactam Sod 50 ml @ 100 mls/hr Q6 IVPB Last administered on 12/29/18at 06:04; Admin Dose 100 MLS/HR; Start 12/28/18 at 18:00 Phenol (Cepastat Lozenge) 1 lozenge Q1H PRN MT COUGH Last administered on 12/29/18at 08:36; Admin Dose 1 LOZENGE; Start 12/28/18 at 17:30 Vancomycin HCl (Vanco Iv Per Pharmacy) VANCOMYCIN PER PHARMACY PER PROTOCOL XX ; Start 12/29/18 at 05:30 Potassium Chloride (Klor-Con 20) 20 meq BID PO Last administered on 12/29/18at 09:33; Admin Dose 20 MEQ; Start 12/29/18 at 09:00; Stop 12/30/18 at 01:00 Escitalopram Oxalate (Lexapro) 10 mg DAILY PO Last administered on 12/29/18at 10:33; Admin Dose 10 MG; Start 12/29/18 at 09:30 Risedronate (Actonel) 35 mg Tu@AC BREAKFAST PO ; Start 12/30/18 at 07:00 Mirtazapine (Remeron) 15 mg HS PO ; Start 12/29/18 at 21:00 PATTI CALLEJAS MD December 29, 2018 12:09
[2018-12-29] MEDS ORDERED: FER325 PO (13:11)
[2018-12-29] MEDS ORDERED: HYDR-3672 PO (13:11)
[2018-12-29] MEDS ORDERED: ALLO300T2 PO (13:12)
[2018-12-29] MEDS ORDERED: ERGO500013 PO (13:12)
[2018-12-29] MEDS ORDERED: FOLI-49 PO (13:12)
[2018-12-29] MEDS ORDERED: MIRT15TA5 PO (13:13)
[2018-12-29] MEDS ORDERED: TRAM50TA PO (13:13)
[2018-12-29] MEDS ORDERED: FURO40TA4 PO (13:13)
[2018-12-29] MEDS ORDERED: ROSU40TA35 PO (13:14)
[2018-12-29] MEDS ORDERED: ESCI10TA PO (13:14)
[2018-12-29] MEDS ORDERED: FENO145T37 PO (13:15)
[2018-12-29] MEDS ORDERED: DEXL60CA2 PO (13:16)
[2018-12-29] MEDS ORDERED: LINA5TAB PO (13:17)
[2018-12-29] MEDS ORDERED: ACT35 PO (13:17)
[2018-12-29] MEDS ORDERED: ATEN-51 PO (13:18)
[2018-12-29] MEDS ORDERED: ICOS1CAP PO (13:18)
[2018-12-29] MEDS: HEPARIN 25000 UNITS/D5W 250 ML IV SCH (14:08)
--- NOTE | 2018-12-29 16:49 | PN ---
Date/Time of Note Date/Time of Note DATE: 12/29/18 TIME: 16:48 Assessment/Plan Lines/Catheters IV Catheter Type (from Nrs): Peripheral IV Taveras in Place (from Nrs): Yes Assessment/Plan Assessment/Plan WBC 12K. cxr slightly better. Echo shows moderate to severe AI. Will have LOUIE tomorrow. possible surgery Saturday Exam/Review of Systems Vital Signs Vitals Vital Signs Date Temp Pulse Resp B/P (MAP) Pulse Ox O2 O2 Flow FiO2 Time Delivery Rate 12/29/18 71 28 124/41 97 15:00 (68) 12/29/18 5.0 14:16 12/29/18 Nasal 14:00 Cannula 12/29/18 98.2 12:00 12/29/18 45 05:15 Intake and Output 12/28/18 12/28/18 12/29/18 1414:59 22:59 06:59 IntakeIntake Total 120 ml 211.5 ml 294.5 ml OutputOutput Total 850 ml 750 ml 420 ml BalanceBalance -730 ml -538.5 ml -125.5 ml Results Result Diagram: 12/29/18 0551 12/29/18 0551 BAIRON TRAN MD December 29, 2018 16:49
[2018-12-29] MEDS: DOCUSATE SODIUM 100 MG CAP PO SCH ×2 (18:54→21:08)
[2018-12-29] MEDS: ATORVASTATIN 80 MG TAB PO SCH (21:07)
[2018-12-29] MEDS: MIRTAZAPINE 15 MG TAB PO SCH (21:08)
[2018-12-30] VITALS (25 sets, daily range): BP systolic 92–134; BP diastolic 32–82; PULSE 63–90; RESP 16–38
[2018-12-30] MEDS: PIPER-TAZO 2.25 GM (PMX) 50 ML IVPB SCH ×5 (00:07→23:28)
[2018-12-30] MEDS: INSULIN ASPART [NOVOLOG] 3 ML PEN SC SCH ×6 (01:00→21:00)
[2018-12-30] MEDS: ACCU-CHEK XX SCH (01:19)
[2018-12-30] MEDS: HEPARIN 25000 UNITS/D5W 250 ML IV SCH (04:45)
[2018-12-30] MEDS: PANTOPRAZOLE (EC) 40 MG TAB PO SCH (05:48)
[2018-12-30] MEDS: RISEDRONATE 35 MG TAB PO SCH ×2 (07:00→07:05)
[2018-12-30] MEDS: DOCUSATE SODIUM 100 MG CAP PO SCH ×2 (07:45→21:06)
[2018-12-30] MEDS: ASPIRIN 81 MG TAB PO SCH (07:45)
[2018-12-30] MEDS: ESCITALOPRAM 10 MG TAB PO SCH (07:45)
[2018-12-30] MEDS: FUROSEMIDE 40 MG INJ IV SCH (08:36)
--- NOTE | 2018-12-30 09:52 | PN ---
Date/Time of Note Date/Time of Note DATE: 12/30/18 TIME: 09:50 Assessment/Plan VTE Prophylaxis Risk score (from [facility] – [place], [place])>0 risk: 9 SCD applied (from [facility] [place], [place]): No SCD contraindicated: other Pharmacological prophylaxis: heparin Lines/Catheters IV [facility] Type (from [facility]): Peripheral IV Urinary Cath still in place: Yes Reason Cath still needed: urinary retention Assessment/Plan Hospital Course S: Patient still on heparin drip, awaiting LOUIE for later today. O:Vs - see below PE: Gen: Frail appearing elderly woman lying in bed, awake HEENT: PERRL, no icterus, moist mucous membranes, clear oropharynx Neck: Supple Card: Regular rate and rhythm, no murmurs appreciated Pulm: + rales Abd: Soft, nontender, nondistended. Ext: No LE edema B/L Date/Time of Note Date/Time of Note DATE: 12/28/18 TIME: 11:48 Operative Report Procedure Date: December 28, 2018 Preoperative Diagnosis STEMI, new LBBB Postoperative Diagnosis Sever 2 vessel CAD, LAD and RCA, LAD is culprit with francine 2 flow, and cardiomyopathy with LVEF 35% Operation/Procedure Performed Coronary angiography Left heart catheterization Left ventriculography Moderate sedation with versed and fentanyl Assessment/Plan: 83 yo Bangladeshi-speaking woman with history of dementia, hypertension, dyslipidemia, severe MR and aortic stenosis, arrhythmia who presents with ACS and multi-vessel coronary artery disease. #Acute [place]- possible STEMI with LBBB - patient had cardiac cath on 12/28, found with: Severe 2 vessel CAD, LAD and RCA, LAD is culprit with francine 2 flow, and cardiomyopathy with LVEF 35%. Again patient also with severe aortic regu rgitation and at least moderate mitral regurgitation. - Continue heparin gtt, aspirin, Lipitor, beta-geovanny, statin - Per cardiology team Dr. Alvarenga and CTS Dr. Freire, patient ideally would need 2 vessel CABG (GRAF-LAD and SVG-RCA) with aortic valve repair/replacement and possibly mitral valve repair, possible in the next few days? Again scheduled for LOUIE later today, follow-up results of this #Acute CHF exacerbation -slowly improving - likely due to acute ischemic CAD/STEMI -status post nitro gtt earlier this admission, now off this. - Continue NIPPV as needed for pulmonary edema. - Cautious loop diuresis, monitor BUN/creatinine levels #Bacteremia: 2 out of 2 bottles positive for gram-positive cocci. Patient also being treated for likely upper respiratory infection -Continue broad-spectrum antibiotic, follow final culture results. #WILLIAM: Creatinine has been in the 1.8 range since admission. Unknown baseline. Has been on low-dose IV Lasix -Monitor, follow-up recommendations from renal consult DVT: heparin gtt GI: PPI Critical care time spent in patient care today equals 45 minutes. Result Diagram: 12/30/18 0337 12/30/187 Results 24hrs Laboratory Tests Test 12/29/18 12:22 12/29/18 13:09 12/29/18 17:33 12/29/18 19:14 Bedside Glucose 113 138 Activated 48.7 H 50.2 H Partial Thromboplast Time Test 12/29/18 21:07 12/30/18 01:09 12/30/18 03:37 12/30/18 04:52 Bedside Glucose 154 121 134 White Blood Count 10.2 Red Blood Count 2.67 L Hemoglobin 8.0 L Hematocrit 26.3 L Mean Corpuscular Volume 98.5 Mean Corpuscular 30.0 Hemoglobin Mean Corpuscular 30.4 L Hemoglobin Concent Red Cell Distribution 16.9 H Width Platelet Count 248 Mean Platelet Volume 10.1 Immature Granulocytes % 0.500 H Neutrophils % 81.6 H Lymphocytes % 13.3 L Monocytes % 4.1 Eosinophils % 0.2 Basophils % 0.3 Nucleated Red Blood 0.0 Cells % Immature Granulocytes # 0.050 H Neutrophils # 8.4 H Lymphocytes # 1.4 Monocytes # 0.4 Eosinophils # 0.0 Basophils # 0.0 Nucleated Red Blood 0.0 Cells # Activated 45.7 H Partial Thromboplast Time Sodium Level 144 Potassium Level 4.0 Chloride Level 108 Carbon Dioxide Level 28 Anion Gap 8 Blood Urea Nitrogen 48 H Creatinine 2.10 H Est Glomerular Filtrat Rate mL/min Glucose Level 116 Calcium Level 8.6 Phosphorus Level 4.4 Magnesium Level 2.4 Test 12/30/18 08:39 Bedside Glucose 112 Exam/Review of Systems Exam Vitals Vital Signs Date Temp Pulse Resp B/P (MAP) Pulse Ox O2 O2 Flow FiO2 Time Delivery Rate 12/30/18 75 32 133/42 97 09:00 (72) 12/30/18 98.5 Nasal 2.0 08:00 Cannula 12/29/18 45 05:15 Intake and Output 12/29/18 12/29/18 12/30/18 1515:00 23:00 07:00 IntakeIntake Total 323.0 ml 268.5 ml 179.5 ml OutputOutput Total 320 ml 290 ml 270 ml BalanceBalance 3.0 ml -21.5 ml -90.5 ml Results Results 24hrs Laboratory Tests Test 12/29/18 12:22 12/29/18 13:09 12/29/18 17:33 12/29/18 19:14 Bedside Glucose 113 138 Activated 48.7 H 50.2 H Partial Thromboplast Time Test 12/29/18 21:07 12/30/18 01:09 12/30/18 03:37 12/30/18 04:52 Bedside Glucose 154 121 134 White Blood Count 10.2 Red Blood Count 2.67 L Hemoglobin 8.0 L Hematocrit 26.3 L Mean Corpuscular Volume 98.5 Mean Corpuscular 30.0 Hemoglobin Mean Corpuscular 30.4 L Hemoglobin Concent Red Cell Distribution 16.9 H Width Platelet Count 248 Mean Platelet Volume 10.1 Immature Granulocytes % 0.500 H Neutrophils % 81.6 H Lymphocytes % 13.3 L Monocytes % 4.1 Eosinophils % 0.2 Basophils % 0.3 Nucleated Red Blood 0.0 Cells % Immature Granulocytes # 0.050 H Neutrophils # 8.4 H Lymphocytes # 1.4 Monocytes # 0.4 Eosinophils # 0.0 Basophils # 0.0 Nucleated Red Blood 0.0 Cells # Activated 45.7 H Partial Thromboplast Time Sodium Level 144 Potassium Level 4.0 Chloride Level 108 Carbon Dioxide Level 28 Anion Gap 8 Blood Urea Nitrogen 48 H Creatinine 2.10 H Est Glomerular Filtrat Rate mL/min Glucose Level 116 Calcium Level 8.6 Phosphorus Level 4.4 Magnesium Level 2.4 Test 12/30/18 08:39 Bedside Glucose 112 Medications Medication Current Medications IV Flush (NS 3 ml) 3 ml PER PROTOCOL IV ; Start 12/28/18 at 04:30 Ondansetron HCl (Zofran Inj) 4 mg Q6H PRN IV NAUSEA/VOMITING Last administered on 12/29/18at 12:30; Admin Dose 4 MG; Start 12/28/18 at 04:30 Aspirin (Aspirin) 81 mg DAILY PO Last administered on 12/29/18at 08:33; Admin Dose 81 MG; Start 12/28/18 at 09:00 Furosemide (Lasix) 20 mg DAILY IV Last administered on 12/30/18at 08:36; Admin Dose 20 MG; Start 12/28/18 at 09:00 Nitroglycerin (Nitroglycerin (Sl Tab) 0.4 Mg) 1 tab Q5M PRN SL .CHEST PAIN Last administered on 12/28/18at 09:55; Admin Dose 1 TAB; Start 12/28/18 at 04:30 Diagnostic Test (Pha) (Accu-Chek) 1 ea 02 XX Last administered on 12/30/18at 01:19; Admin Dose 1 EA; Start 12/29/18 at 02:00 Insulin Aspart (Novolog Insulin Pen) NOVOLOG *MODERATE* ALGORI... Q4 SC Last administered on 12/29/18at 21:10; Admin Dose 2 UNIT; Start 12/28/18 at 05:00 Miscellaneous Information 1 ea NOTE XX ; Start 12/28/18 at 05:00 Glucose (Glutose) 15 gm Q15M PRN PO DECREASED GLUCOSE; Start 12/28/18 at 05:00 Glucose (Glutose) 22.5 gm Q15M PRN PO DECREASED GLUCOSE; Start 12/28/18 at 05:00 Dextrose (D50w Syringe) 25 ml Q15M PRN IV DECREASED GLUCOSE; Start 12/28/18 at 05:00 Dextrose (D50w Syringe) 50 ml Q15M PRN IV DECREASED GLUCOSE; Start 12/28/18 at 05:00 Glucagon (Glucagen) 1 mg Q15M PRN IM DECREASED GLUCOSE; Start 12/28/18 at 05:00 Glucose (Glutose) 15 gm Q15M PRN BUCCAL DECREASED GLUCOSE; Start 12/28/18 at 05:00 Miscellaneous Information (* Miscellaneous Pharmacy Order) HOLD all METFORMIN ... ONCE XX ; Start 12/28/18 at 12:00; Stop 12/30/18 at 11:59 Heparin Sodium (Porcine) (Heparin (1000 Units/ml)) 4,000 unit PER PROTOCOL PRN IV aPTT<47 Last administered on 12/30/18at 04:36; Admin Dose 4,000 UNIT; Start 12/28/18 at 13:00 Carvedilol (Coreg) 6.25 mg BID PO Last administered on 12/30/18 09:31; Admin Dose 6.25 MG; Start 12/28/18 at 13:00 Atorvastatin Calcium (Lipitor) 80 mg HS PO Last administered on 12/29/18 21:07; Admin Dose 80 MG; Start 12/29/18 at 21:00 Heparin Sodium (Porcine) 250 ml @ 8.5 mls/hr Q24H IV Last administered on 12/30/18 04:45; Admin Dose 10.5 MLS/HR; Start 12/28/18 at 13:48 Piperacillin Sod/ Tazobactam Sod 50 ml @ 100 mls/hr Q6 IVPB Last administered on 12/30/18 05:47; Admin Dose 100 MLS/HR; Start 12/28/18 at 18:00 Phenol (Cepastat Lozenge) 1 lozenge Q1H PRN MT COUGH Last administered on 12/29/18 21:27; Admin Dose 1 LOZENGE; Start 12/28/18 at 17:30 Vancomycin HCl (Vanco Iv Per Pharmacy) VANCOMYCIN PER PHARMACY PER PROTOCOL XX ; Start 12/29/18 at 05:30 Escitalopram Oxalate (Lexapro) 10 mg DAILY PO Last administered on 12/29/18 10:33; Admin Dose 10 MG; Start 12/29/18 at 09:30 Risedronate (Actonel) 35 mg Tu@AC BREAKFAST PO ; Start 12/30/18 at 07:00 Mirtazapine (Remeron) 15 mg HS PO Last administered on 12/29/18 21:08; Admin Dose 15 MG; Start 12/29/18 at 21:00 Vancomycin HCl 250 ml @ 125 mls/hr Q36H IVPB ; Start 12/30/18 at 18:00 Pantoprazole (Protonix Tab) 40 mg DAILY@06 PO ; Start 12/30/18 at 06:00 Docusate Sodium (Colace) 100 mg BID PO Last administered on 12/29/18 21:08; Admin Dose 100 MG; Start 12/29/18 at 18:30 KRYSTAL BERNARD December 30, 2018 09:52
--- NOTE | 2018-12-30 11:55 | CONS ---
Assessment/Plan Assessment/Plan Assessment/Plan (Daily) 1. Acute kidney injury on CKD III 2/2 Hemodynamics from CHF + NSTEMI 2. Hypokalemia 3. Hypernatremia 4. acute NSTEMI 5. CAD mulitivessels obstructive Plan: Conitnue BIPAP prn IV lasix 20mg iV daily IV abx for bactremia, renally dose all abx and monitor electrolytes s/p LOUIE today severe AI and no vegetations, Cr bumped to 2.0 - As per Working Supervisor discussion with Primary caridology pt has chronic AI and CKD- After discussion pt deemed high risk for CABG so recommended for transfer to [facility] for staged complex PCI of LAD and RCA, and possible staged TAVR- family in agreement for transfer will continue to follow up Consultation Date/Type/Reason Admit Date/Time December 28, 2018 at 03:23 Initial Consult Date 12/28/18 Requesting Provider: ANAM TOMPKINS MD Date/Time of Note DATE: 12/30/18 TIME: 11:55 24 HR Interval Summary Free Text/Dictation s/p LOUIE today severe AI and no vegetations, Cr bumped to 2.0 Exam/Review of Systems Exam Vitals Vital Signs Date Temp Pulse Resp B/P (MAP) Pulse Ox O2 O2 Flow FiO2 Time Delivery Rate 12/30/18 75 32 133/42 97 09:00 (72) 12/30/18 Nasal 2.0 08:00 Cannula 12/30/18 98.5 08:00 12/29/18 45 05:15 Intake and Output 12/29/18 12/29/18 12/30/18 1515:00 23:00 07:00 IntakeIntake Total 323.0 ml 268.5 ml 179.5 ml OutputOutput Total 320 ml 290 ml 270 ml BalanceBalance 3.0 ml -21.5 ml -90.5 ml Exam Gen: frail, alert ,awake Eyes: PERRL, no icterus HEENT: Moist mucous membranes, clear oropharynx Neck: No JVD, no lymphadenopathy Card: Regular rate and rhythm, no murmurs appreciated Pulm: Rales throughout. Abd: Soft, nontender, nondistended. Ext: No cyanosis/clubbing/edema. Results Result Diagram: 12/30/18 0337 12/30/187 Results 24hrs Laboratory Tests Test 12/29/18 12:22 12/29/18 13:09 12/29/18 17:33 12/29/18 19:14 Bedside Glucose 113 138 Activated 48.7 H 50.2 H Partial Thromboplast Time Test 12/29/18 21:07 12/30/18 01:09 12/30/18 03:37 12/30/18 04:52 Bedside Glucose 154 121 134 White Blood Count 10.2 Red Blood Count 2.67 L Hemoglobin 8.0 L Hematocrit 26.3 L Mean Corpuscular Volume 98.5 Mean Corpuscular 30.0 Hemoglobin Mean Corpuscular 30.4 L Hemoglobin Concent Red Cell Distribution 16.9 H Width Platelet Count 248 Mean Platelet Volume 10.1 Immature Granulocytes % 0.500 H Neutrophils % 81.6 H Lymphocytes % 13.3 L Monocytes % 4.1 Eosinophils % 0.2 Basophils % 0.3 Nucleated Red Blood 0.0 Cells % Immature Granulocytes # 0.050 H Neutrophils # 8.4 H Lymphocytes # 1.4 Monocytes # 0.4 Eosinophils # 0.0 Basophils # 0.0 Nucleated Red Blood 0.0 Cells # Activated 45.7 H Partial Thromboplast Time Sodium Level 144 Potassium Level 4.0 Chloride Level 108 Carbon Dioxide Level 28 Anion Gap 8 Blood Urea Nitrogen 48 H Creatinine 2.10 H Est Glomerular Filtrat Rate mL/min Glucose Level 116 Calcium Level 8.6 Phosphorus Level 4.4 Magnesium Level 2.4 Test 12/30/18 08:39 12/30/18 11:23 Bedside Glucose 112 Activated 33.8 Partial Thromboplast Time Medications Medication Current Medications IV Flush (NS 3 ml) 3 ml PER PROTOCOL IV ; Start 12/28/18 at 04:30 Ondansetron HCl (Zofran Inj) 4 mg Q6H PRN IV NAUSEA/VOMITING Last administered on 12/29/18at 12:30; Admin Dose 4 MG; Start 12/28/18 at 04:30 Aspirin (Aspirin) 81 mg DAILY PO Last administered on 12/29/18at 08:33; Admin Dose 81 MG; Start 12/28/18 at 09:00 Furosemide (Lasix) 20 mg DAILY IV Last administered on 12/30/18at 08:36; Admin Dose 20 MG; Start 12/28/18 at 09:00 Nitroglycerin (Nitroglycerin (Sl Tab) 0.4 Mg) 1 tab Q5M PRN SL .CHEST PAIN Last administered on 12/28/18at 09:55; Admin Dose 1 TAB; Start 12/28/18 at 04:30 Diagnostic Test (Pha) (Accu-Chek) 1 ea 02 XX Last administered on 12/30/18at 01:19; Admin Dose 1 EA; Start 12/29/18 at 02:00 Insulin Aspart (Novolog Insulin Pen) NOVOLOG *MODERATE* ALGORI... Q4 SC Last administered on 12/29/18at 21:10; Admin Dose 2 UNIT; Start 12/28/18 at 05:00 Miscellaneous Information 1 ea NOTE XX ; Start 12/28/18 at 05:00 Glucose (Glutose) 15 gm Q15M PRN PO DECREASED GLUCOSE; Start 12/28/18 at 05:00 Glucose (Glutose) 22.5 gm Q15M PRN PO DECREASED GLUCOSE; Start 12/28/18 at 05:00 Dextrose (D50w Syringe) 25 ml Q15M PRN IV DECREASED GLUCOSE; Start 12/28/18 at 05:00 Dextrose (D50w Syringe) 50 ml Q15M PRN IV DECREASED GLUCOSE; Start 12/28/18 at 05:00 Glucagon (Glucagen) 1 mg Q15M PRN IM DECREASED GLUCOSE; Start 12/28/18 at 05:00 Glucose (Glutose) 15 gm Q15M PRN BUCCAL DECREASED GLUCOSE; Start 12/28/18 at 05:00 Miscellaneous Information (* Miscellaneous Pharmacy Order) HOLD all METFORMIN ... ONCE XX ; Start 12/28/18 at 12:00; Stop 12/30/18 at 11:59 Heparin Sodium (Porcine) (Heparin (1000 Units/ml)) 4,000 unit PER PROTOCOL PRN IV aPTT<47 Last administered on 12/30/18at 04:36; Admin Dose 4,000 UNIT; Start 12/28/18 at 13:00 Carvedilol (Coreg) 6.25 mg BID PO Last administered on 12/30/18at 09:31; Admin Dose 6.25 MG; Start 12/28/18 at 13:00 Atorvastatin Calcium (Lipitor) 80 mg HS PO Last administered on 12/29/18at 21:07; Admin Dose 80 MG; Start 12/29/18 at 21:00 Heparin Sodium (Porcine) 250 ml @ 8.5 mls/hr Q24H IV Last administered on at 04:45; Admin Dose 10.5 MLS/HR; Start 12/28/18 at 13:48 Piperacillin Sod/ Tazobactam Sod 50 ml @ 100 mls/hr Q6 IVPB Last administered on 12/30/18at 05:47; Admin Dose 100 MLS/HR; Start 12/28/18 at 18:00 Phenol (Cepastat Lozenge) 1 lozenge Q1H PRN MT COUGH Last administered on 12/29/18at 21:27; Admin Dose 1 LOZENGE; Start 12/28/18 at 17:30 Vancomycin HCl (Vanco Iv Per Pharmacy) VANCOMYCIN PER PHARMACY PER PROTOCOL XX ; Start 12/29/18 at 05:30 Escitalopram Oxalate (Lexapro) 10 mg DAILY PO Last administered on 12/29/18at 10:33; Admin Dose 10 MG; Start 12/29/18 at 09:30 Risedronate (Actonel) 35 mg Tu@AC BREAKFAST PO ; Start 12/30/18 at 07:00 Mirtazapine (Remeron) 15 mg HS PO Last administered on 12/29/18at 21:08; Admin Dose 15 MG; Start 12/29/18 at 21:00 Vancomycin HCl 250 ml @ 125 mls/hr Q36H IVPB ; Start 12/30/18 at 18:00 Pantoprazole (Protonix Tab) 40 mg DAILY@06 PO ; Start 12/30/18 at 06:00 Docusate Sodium (Colace) 100 mg BID PO Last administered on 12/29/18at 21:08; Admin Dose 100 MG; Start 12/29/18 at 18:30 PATTI CALLEJAS MD December 30, 2018 11:55
--- NOTE | 2018-12-30 13:54 | PREAC ---
Date/Time of Note Date/Time of Note DATE: 12/30/18 TIME: 13:50 Anesthesia Eval and Record Evaluation Time Pre-Procedure Interview DATE: 12/30/18 TIME: 13:50 Age 83 Sex female NPO: 8 hrs Preoperative diagnosis NSTEMI, new Onset A. Fib, LBBB, Bacteremia Planned procedure LOUIE Past Medical History Past Medical History: Includes Cardio: HTN, CAD, Other (A. Fib, NSTEMI. Echo 12/28 shows EF 35-40%, Mod MR, AR) Surgery & Anesthesia Issues No known issue Meds Anticoagulation: Yes Beta Maranda within 24 hr: Yes Reported Medications Atenolol* (Atenolol*) 25 Mg Tablet, 25 MG PO DAILY, #30 TAB 12/29/18 Icosapent Ethyl (VASCEPA) 1 Gm Capsule, 2 GM PO BID, CAP 12/29/18 Linagliptin (TRADJENTA) 5 Mg Tablet, 5 MG PO DAILY, TAB 12/29/18 Risedronate* (Actonel*) 35 Mg Tablet, 35 MG PO Q7D, #4 TAB 12/29/18 Dexlansoprazole (Dexilant) 60 Mg Cap., 60 MG PO DAILY, #30 CAP 12/29/18 Fenofibrate Nanocrystallized* (Fenofibrate*) 145 Mg Tablet, 145 MG PO DAILY, TAB 12/29/18 Rosuvastatin Calcium* (Crestor*) 40 Mg Tablet, 40 MG PO QHS, #30 TAB 12/29/18 Escitalopram Oxalate* (Lexapro*) 10 Mg Tablet, 10 MG PO DAILY, #30 TAB 12/29/18 Mirtazapine* (Mirtazapine*) 15 Mg Tablet, 15 MG PO HS, TAB 12/29/18 Tramadol Hcl* (Ultram*) 50 Mg Tablet, 50 MG PO Q6H PRN for PAIN, TAB 12/29/18 Furosemide* (Furosemide*) 40 Mg Tablet, 40 MG PO DAILY, TAB 12/29/18 Allopurinol* (Allopurinol*) 300 Mg Tablet, 300 MG PO DAILY, TAB 12/29/18 Folic Acid* (Folic Acid*) 1 Mg Tablet, 1 MG PO DAILY, TAB 12/29/18 Ergocalciferol (Vitamin D2) (VITAMIN D2) 50,000 Unit Capsule, 98154 UNIT PO ONCE A WEEK, CAP 12/29/18 Ferrous Sulfate* (Ferrous Sulfate*) 325 Mg Tabec, 325 MG PO TID, TAB 12/29/18 Hydralazine Hcl* (Apresoline*) 50 Mg Tab, 50 MG PO TID, #90 TAB 12/29/18 Current Medications IV Flush (NS 3 ml) 3 ml PER PROTOCOL IV ; Start 12/28/18 at 04:30 Ondansetron HCl (Zofran Inj) 4 mg Q6H PRN IV NAUSEA/VOMITING Last administered on 12/29/18at 12:30; Admin Dose 4 MG; Start 12/28/18 at 04:30 Aspirin (Aspirin) 81 mg DAILY PO Last administered on 12/29/18at 08:33; Admin Dose 81 MG; Start 12/28/18 at 09:00 Furosemide (Lasix) 20 mg DAILY IV Last administered on 12/30/18at 08:36; Admin Dose 20 MG; Start 12/28/18 at 09:00 Nitroglycerin (Nitroglycerin (Sl Tab) 0.4 Mg) 1 tab Q5M PRN SL .CHEST PAIN Last administered on 12/28/18at 09:55; Admin Dose 1 TAB; Start 12/28/18 at 04:30 Diagnostic Test (Pha) (Accu-Chek) 1 ea 02 XX Last administered on 12/30/18at 01:19; Admin Dose 1 EA; Start 12/29/18 at 02:00 Insulin Aspart (Novolog Insulin Pen) NOVOLOG *MODERATE* ALGORI... Q4 SC Last administered on 12/29/18at 21:10; Admin Dose 2 UNIT; Start 12/28/18 at 05:00 Miscellaneous Information 1 ea NOTE XX ; Start 12/28/18 at 05:00 Glucose (Glutose) 15 gm Q15M PRN PO DECREASED GLUCOSE; Start 12/28/18 at 05:00 Glucose (Glutose) 22.5 gm Q15M PRN PO DECREASED GLUCOSE; Start 12/28/18 at 05:00 Dextrose (D50w Syringe) 25 ml Q15M PRN IV DECREASED GLUCOSE; Start 12/28/18 at 05:00 Dextrose (D50w Syringe) 50 ml Q15M PRN IV DECREASED GLUCOSE; Start 12/28/18 at 05:00 Glucagon (Glucagen) 1 mg Q15M PRN IM DECREASED GLUCOSE; Start 12/28/18 at 05:00 Glucose (Glutose) 15 gm Q15M PRN BUCCAL DECREASED GLUCOSE; Start 12/28/18 at 05:00 Carvedilol (Coreg) 6.25 mg BID PO Last administered on 12/30/18at 09:31; Admin Dose 6.25 MG; Start 12/28/18 at 13:00 Atorvastatin Calcium (Lipitor) 80 mg HS PO Last administered on 12/29/18at 21:07; Admin Dose 80 MG; Start 12/29/18 at 21:00 Heparin Sodium (Porcine) 250 ml @ 8.5 mls/hr Q24H IV Last administered on 12/30/18at 04:45; Admin Dose 10.5 MLS/HR; Start 12/28/18 at 13:48 Piperacillin Sod/ Tazobactam Sod 50 ml @ 100 mls/hr Q6 IVPB Last administered on 12/30/18at 12:24; Admin Dose 100 MLS/HR; Start 12/28/18 at 18:00 Phenol (Cepastat Lozenge) 1 lozenge Q1H PRN MT COUGH Last administered on 12/29/18at 21:27; Admin Dose 1 LOZENGE; Start 12/28/18 at 17:30 Vancomycin HCl (Vanco Iv Per Pharmacy) VANCOMYCIN PER PHARMACY PER PROTOCOL XX ; Start 12/29/18 at 05:30 Escitalopram Oxalate (Lexapro) 10 mg DAILY PO Last administered on 12/29/18at 10:33; Admin Dose 10 MG; Start 12/29/18 at 09:30 Risedronate (Actonel) 35 mg Tu@AC BREAKFAST PO ; Start 12/30/18 at 07:00 Mirtazapine (Remeron) 15 mg HS PO Last administered on 12/29/18at 21:08; Admin Dose 15 MG; Start 12/29/18 at 21:00 Vancomycin HCl 250 ml @ 125 mls/hr Q36H IVPB ; Start 12/30/18 at 18:00 Pantoprazole (Protonix Tab) 40 mg DAILY@06 PO ; Start 12/30/18 at 06:00 Docusate Sodium (Colace) 100 mg BID PO Last administered on 12/29/18at 21:08; Admin Dose 100 MG; Start 12/29/18 at 18:30 Meds reviewed: Yes Allergies Coded Allergies: No Known Allergy (Unverified , 12/29/18) Allergies Reviewed: Yes Labs/Studies Labs Reviewed: Reviewed by anesthesiologist Result Diagram: 12/30/18 0337 12/30/18 0337 Laboratory Tests 12/30/18 03:37 test: N/A Studies: ECG, 2D Echo Pre-procedure Exam Last vitals Vital Signs Date Temp Pulse Resp B/P (MAP) Pulse Ox O2 O2 Flow FiO2 Time Delivery Rate 12/30/18 75 12:00 12/30/18 32 133/42 97 09:00 (72) 12/30/18 Nasal 2.0 08:00 Cannula 12/30/18 98.5 08:00 12/29/18 45 05:15 Airway: Adequate mouth opening Mallampati: Mallampati II Teeth: Abnormal (Poor dentition) Lung: Normal Heart: Normal ASA Physical Status ASA physical status: 4 Emergency: None Planned Anesthetic General/MAC: MAC Pre-operative Attestations Prior to commencing anesthesia and surgery, the patient was re-evaluated, there was verification of: *The patient's identity *The results of appropriate recent lab work and preoperative vital signs *The above evaluation not changing prior to induction *Anesthetic plan, risk benefits, alternative and complications discussed with patient/family; questions answered; patient/family understands, accepts and wishes to proceed. [employer] Curator used LENI PARIKH MD December 30, 2018 13:54
[2018-12-30] MEDS ORDERED: PHENYLephrine (100 MCG/ML) 10ML SYG ONE (13:57)
[2018-12-30] MEDS ORDERED: PROPOFOL 0 ML ONE (13:57)
[2018-12-30] MEDS ORDERED: EPHEDrine 25 MG/5 ML SYG ONE (13:57)
[2018-12-30] MEDS ORDERED: LIDOCAINE 100 MG SYRINGE ONE (13:57)
[2018-12-30] MEDS ORDERED: PROPOFOL 20 ML ONE (14:58)
--- NOTE | 2018-12-30 15:10 | CONS ---
Assessment/Plan Assessment/Plan Hospital Course (Demo Recall) 83 yo with STEMI/new LBBB, with severe 2V CAD. Also LVEF is moderately reduced at about 40% with severe aortic regurgitation and moderate mitral regurgitation. LOUIE demonstrates no vegetations. Imp: CT with new LBBB, being treated as STEMI acute systolic heart failure, improved Severe aortic regurgitation and moderate mitral regurgitation Bacteremia, with no evidence of vegetations on LOUIE htn, controlled CKD with cr 1.8 on presentation, with acute worsening to 2.1 Recommendations: Stop heparin drip Continue asa, carvedilol No peggy/arb due to renal insufficiency Nephrology input appreciated, will stop furosemide Continue statin therapy Anticipate possible 2-vessel CABG with aortic valve repair/replacement, needs antibiotics first Consider percutaneous approach at a tertiary center given patient risk factors, ie TAVR for AI and PCI of LAD and RCA Case discussed with , with deaf interpreter present Consultation Date/Type/Reason Admit Date/Time December 28, 2018 at 03:23 Initial Consult Date 12/28/18 Type of Consult Cardiology Requesting Provider: ANAM TOMPKINS MD Date/Time of Note DATE: 12/30/18 TIME: 14:47 24 HR Interval Summary Free Text/Dictation No events overnight. Patient underwent LOUIE and no vegetations seen, has severe AI, moderate MR. Patient without pain or dyspnea Exam/Review of Systems Vital Signs Vitals Vital Signs Date Temp Pulse Resp B/P (MAP) Pulse Ox O2 O2 Flow FiO2 Time Delivery Rate 12/30/18 75 12:00 12/30/18 32 133/42 97 09:00 (72) 12/30/18 Nasal 2.0 08:00 Cannula 12/30/18 98.5 08:00 12/29/18 45 05:15 Intake and Output 12/29/18 12/29/18 12/30/18 1515:00 23:00 07:00 IntakeIntake Total 323.0 ml 268.5 ml 179.5 ml OutputOutput Total 320 ml 290 ml 270 ml BalanceBalance 3.0 ml -21.5 ml -90.5 ml Exam Constitutional: alert, oriented Psych: no complaints, nl mood/affect Head: normocephalic, atraumatic Eyes: EOMI, nl lids ENMT: nl external ears & nose Neck: No jvd, No bruits Respiratory: clear to auscultation Cardiovascular: regular rate and rhythm, murmurs/extra sounds (3/6 systolic); No edema Gastrointestinal: soft, nl liver, spleen, non-tender Musculoskeletal: nl extremities to inspection Extremities: No edema Neurological: nl speech Skin: nl turgor Labs Result Diagram: 12/30/18 0337 12/30/18 0337 Results 24hrs Laboratory Tests Test 12/29/18 17:33 12/29/18 19:14 12/29/18 21:07 12/30/18 01:09 Bedside Glucose 138 154 121 Activated 50.2 H Partial Thromboplast Time Test 12/30/18 03:37 12/30/18 04:52 12/30/18 08:39 12/30/18 11:23 White Blood Count 10.2 Red Blood Count 2.67 L Hemoglobin 8.0 L Hematocrit 26.3 L Mean Corpuscular Volume 98.5 Mean Corpuscular 30.0 Hemoglobin Mean Corpuscular 30.4 L Hemoglobin Concent Red Cell Distribution 16.9 H Width Platelet Count 248 Mean Platelet Volume 10.1 Immature Granulocytes % 0.500 H Neutrophils % 81.6 H Lymphocytes % 13.3 L Monocytes % 4.1 Eosinophils % 0.2 Basophils % 0.3 Nucleated Red Blood 0.0 Cells % Immature Granulocytes # 0.050 H Neutrophils # 8.4 H Lymphocytes # 1.4 Monocytes # 0.4 Eosinophils # 0.0 Basophils # 0.0 Nucleated Red Blood 0.0 Cells # Activated 45.7 H 33.8 Partial Thromboplast Time Sodium Level 144 Potassium Level 4.0 Chloride Level 108 Carbon Dioxide Level 28 Anion Gap 8 Blood Urea Nitrogen 48 H Creatinine 2.10 H Est Glomerular Filtrat Rate mL/min Glucose Level 116 Calcium Level 8.6 Phosphorus Level 4.4 Magnesium Level 2.4 Bedside Glucose 134 112 Test 12/30/18 12:21 12/30/18 12:29 Bedside Glucose 119 Activated 39.0 H Partial Thromboplast Time Medications Medications Current Medications IV Flush (NS 3 ml) 3 ml PER PROTOCOL IV ; Start 12/28/18 at 04:30 Ondansetron HCl (Zofran Inj) 4 mg Q6H PRN IV NAUSEA/VOMITING Last administered on 12/29/18at 12:30; Admin Dose 4 MG; Start 12/28/18 at 04:30 Aspirin (Aspirin) 81 mg DAILY PO Last administered on 12/29/18at 08:33; Admin Dose 81 MG; Start 12/28/18 at 09:00 Furosemide (Lasix) 20 mg DAILY IV Last administered on 12/30/18 08:36; Admin Dose 20 MG; Start 12/28/18 at 09:00 Nitroglycerin (Nitroglycerin (Sl Tab) 0.4 Mg) 1 tab Q5M PRN SL .CHEST PAIN Last administered on 12/28/18at 09:55; Admin Dose 1 TAB; Start 12/28/18 at 04:30 Diagnostic Test (Pha) (Accu-Chek) 1 ea 02 XX Last administered on 12/30/18 01:19; Admin Dose 1 EA; Start 12/29/18 at 02:00 Insulin Aspart (Novolog Insulin Pen) NOVOLOG *MODERATE* ALGORI... Q4 SC Last administered on 12/29/18 21:10; Admin Dose 2 UNIT; Start 12/28/18 at 05:00 Miscellaneous Information 1 ea NOTE XX ; Start 12/28/18 at 05:00 Glucose (Glutose) 15 gm Q15M PRN PO DECREASED GLUCOSE; Start 12/28/18 at 05:00 Glucose (Glutose) 22.5 gm Q15M PRN PO DECREASED GLUCOSE; Start 12/28/18 at 05:00 Dextrose (D50w Syringe) 25 ml Q15M PRN IV DECREASED GLUCOSE; Start 12/28/18 at 05:00 Dextrose (D50w Syringe) 50 ml Q15M PRN IV DECREASED GLUCOSE; Start 12/28/18 at 05:00 Glucagon (Glucagen) 1 mg Q15M PRN IM DECREASED GLUCOSE; Start 12/28/18 at 05:00 Glucose (Glutose) 15 gm Q15M PRN BUCCAL DECREASED GLUCOSE; Start 12/28/18 at 05:00 Carvedilol (Coreg) 6.25 mg BID PO Last administered on 12/30/18 09:31; Admin Dose 6.25 MG; Start 12/28/18 at 13:00 Atorvastatin Calcium (Lipitor) 80 mg HS PO Last administered on 12/29/18 21:07; Admin Dose 80 MG; Start 12/29/18 at 21:00 Heparin Sodium (Porcine) 250 ml @ 8.5 mls/hr Q24H IV Last administered on 12/30/18at 04:45; Admin Dose 10.5 MLS/HR; Start 12/28/18 at 13:48 Piperacillin Sod/ Tazobactam Sod 50 ml @ 100 mls/hr Q6 IVPB Last administered on 12/30/18at 12:24; Admin Dose 100 MLS/HR; Start 12/28/18 at 18:00 Phenol (Cepastat Lozenge) 1 lozenge Q1H PRN MT COUGH Last administered on 12/29/18 21:27; Admin Dose 1 LOZENGE; Start 12/28/18 at 17:30 Vancomycin HCl (Vanco Iv Per Pharmacy) VANCOMYCIN PER PHARMACY PER PROTOCOL XX ; Start 12/29/18 at 05:30 Escitalopram Oxalate (Lexapro) 10 mg DAILY PO Last administered on 12/29/18at 10:33; Admin Dose 10 MG; Start 12/29/18 at 09:30 Risedronate (Actonel) 35 mg Tu@AC BREAKFAST PO ; Start 12/30/18 at 07:00 Mirtazapine (Remeron) 15 mg HS PO Last administered on 12/29/18at 21:08; Admin Dose 15 MG; Start 12/29/18 at 21:00 Vancomycin HCl 250 ml @ 125 mls/hr Q36H IVPB ; Start 12/30/18 at 18:00 Pantoprazole (Protonix Tab) 40 mg DAILY@06 PO ; Start 12/30/18 at 06:00 Docusate Sodium (Colace) 100 mg BID PO Last administered on 12/29/18at 21:08; Admin Dose 100 MG; Start 12/29/18 at 18:30 RODRIGUEZ GARZA December 30, 2018 14:57
--- NOTE | 2018-12-30 15:12 | PAC ---
Date/Time of Note Date/Time of Note DATE: 12/30/18 TIME: 15:12 Post-Anesthesia Notes Post-Anesthesia Note Last documented vital signs Vital Signs Date Temp Pulse Resp B/P (MAP) Pulse Ox O2 O2 Flow FiO2 Time Delivery Rate 12/30/18 75 12:00 12/30/18 32 133/42 97 09:00 (72) 12/30/18 Nasal 2.0 08:00 Cannula 12/30/18 98.5 08:00 12/29/18 45 05:15 Activity: WNL Respiratory function: WNL Cardiovascular function: WNL Mental status: Baseline Pain reasonably controlled: Yes Hydration appropriate: Yes Nausea/Vomiting absent: Yes LENI PARIKH MD December 30, 2018 15:12
[2018-12-30] MEDS: CEPASTAT LOZENGE MT PRN ×2 (16:10→19:50)
--- NOTE | 2018-12-30 16:22 | RADRPT ---
Transesophageal Echo Report Patient Name: Andry MAYStient ID: [id number] : [id number] ([id number])Study Date: 12/30/2018 2:26:40 PM Gender: FAccession #: [id number] Tech: SN Location: Ref.Physician: ASHTYN ALVARENGA Height(Cm): BSA: Weight(Kg): Quality: AdequateAccount #: Procedures: Transesophageal Echo Report: Transesophageal echocardiogram was performed. PREP: Patient received pre-procedure education; informed consent, baseline vital signs, and focused history and physical were obtained. Systemic sedation was achieved. ESOPHAGEAL INTUBATION: After suitable sedation, the probe was passed. Continuous pulse oximetry, electrocardiographic, and blood pressure monitoring were maintained throughout the procedure. Standard views were obtained in the transgastric, mid-esophageal, and basal planes at approximately 0, 30, 90, and 120 degrees. In addition, a normal saline study was performed. No immediate LOUIE complications noted. Indications: Bacteremia, valvular diseases. Description of Procedure: Lyle Johnson MD. Findings: Left Ventricle: Normal left ventricular size. Mild global left ventricular systolic dysfunction. Ejection fraction is measured at 45 %. Right Ventricle: Normal right ventricular size. Normal right ventricular systolic function. Left Atrium: The left atrium is normal in size. Right Atrium: The right atrium is normal in size. Atrial Septum: No shunt by color Doppler and bubble study. Mitral Valve: Mitral valve leaflets appear mildly thickened. Moderate to severe mitral valve regurgitation. Aortic Valve: Aortic cusps appear mildly calcified. Trileaflet aortic valve. The valves do not coapt well. Severe aortic valve regurgitation. Tricuspid Valve: Normal appearance of the tricuspid valve. There is mild tricuspid regurgitation. Pulmonic Valve: Pulmonic valve not well visualized. Pericardium: Normal pericardium with no significant pericardial effusion. Aorta: There is mild aortic root atherosclerosis. Atrial Appendage: Normal atrial appendage no thrombi or echogenic structure seen. Conclusions: Mildly reduced left ventricular systolic function. Severe aortic regurgitation. Moderate-severe mitral regurgitatoin. No evidene of valvular vegetations. No interatrial shunt. Mild tricuspid regurgitation. Electronically Signed By: Ashtyn Alvarenga 2018-12-30 16:21:24 PDT
[2018-12-30] MEDS: VANCOMYCIN 1 GM 250 ML IVPB SCH (17:46)
[2018-12-30] MEDS: ATORVASTATIN 80 MG TAB PO SCH (21:00)
[2018-12-30] MEDS: MIRTAZAPINE 15 MG TAB PO SCH (21:01)
[2018-12-31] VITALS (23 sets, daily range): BP systolic 97–142; BP diastolic 35–64; PULSE 70–113; RESP 18–29
[2018-12-31] MEDS: INSULIN ASPART [NOVOLOG] 3 ML PEN SC SCH ×6 (01:00→20:51)
[2018-12-31] MEDS: ACCU-CHEK XX SCH (01:01)
[2018-12-31] MEDS: PIPER-TAZO 2.25 GM (PMX) 50 ML IVPB SCH ×3 (05:50→18:47)
[2018-12-31] MEDS: PANTOPRAZOLE (EC) 40 MG TAB PO SCH (05:51)
[2018-12-31] MEDS: ASPIRIN 81 MG TAB PO SCH (08:34)
[2018-12-31] MEDS: DOCUSATE SODIUM 100 MG CAP PO SCH ×2 (08:34→20:34)
[2018-12-31] MEDS: ESCITALOPRAM 10 MG TAB PO SCH (08:34)
--- NOTE | 2018-12-31 09:00 | CONS ---
Assessment/Plan Assessment/Plan Assessment/Plan (Daily) 1. Acute kidney injury on CKD III 2/2 Hemodynamics from CHF + NSTEMI 2. Hypokalemia 3. Hypernatremia 4. acute NSTEMI 5. CAD mulitivessels obstructive Plan: IV lasix 20mg iV daily , BUN/Cr slightly better to 53/1.89, Other electrolytes stable IV abx for bactremia, renally dose all abx and monitor electrolytes s/p LOUIE on 12/30/18 showed severe AI and no vegetations, Cr bumped to 2.0 - As per [employer] discussion with Primary caridology pt has chronic AI and CKD- After discussion pt deemed high risk for CABG so recommended for transfer to [facility] for staged complex PCI of LAD and RCA, and possible staged TAVR- family in agreement for transfer will continue to follow up Consultation Date/Type/Reason Admit Date/Time December 28, 2018 at 03:23 Initial Consult Date 12/28/18 Type of Consult NEPHROLOGY Requesting Provider: KRYSTAL BERNARD Date/Time of Note DATE: 12/31/18 TIME: 09:00 24 HR Interval Summary Free Text/Dictation [facility], on IV lasix, less SOB, BP stable Exam/Review of Systems Exam Vitals Vital Signs Date Temp Pulse Resp B/P (MAP) Pulse Ox O2 O2 Flow FiO2 Time Delivery Rate 12/31/18 71 08:36 12/31/18 97.4 20 133/58 98 Nasal 07:44 (83) Cannula 12/31/18 2.0 02:03 12/29/18 45 05:15 Intake and Output 12/30/18 12/30/18 12/31/18 1515:00 23:00 07:00 IntakeIntake Total 172.5 ml 230 ml 400 ml OutputOutput Total 340 ml 330 ml 600 ml BalanceBalance -167.5 ml -100 ml -200 ml Exam Gen: Frail , no acute distress Eyes: PERRL, no icterus HEENT: Moist mucous membranes, clear oropharynx Neck: + JVD ,, no lymphadenopathy Card: Regular rate and rhythm, no murmurs appreciated Pulm: Rales throughout. Abd: Soft, nontender, nondistended. Ext: No cyanosis/clubbing/edema. Results Result Diagram: 12/30/18 0337 12/31/18 0646 Results 24hrs Laboratory Tests Test 12/30/18 11:23 12/30/18 12:21 12/30/18 12:29 12/30/18 16:40 Activated 33.8 39.0 H Partial Thromboplast Time Bedside Glucose 119 110 Test 12/30/18 20:55 12/31/18 00:59 12/31/18 05:47 12/31/18 06:46 Bedside Glucose 136 101 111 Blood Urea Nitrogen 53 H Creatinine 1.89 H Test 12/31/18 08:33 Bedside Glucose 108 Medications Medication Current Medications IV Flush (NS 3 ml) 3 ml PER PROTOCOL IV ; Start 12/28/18 at 04:30 Ondansetron HCl (Zofran Inj) 4 mg Q6H PRN IV NAUSEA/VOMITING Last administered on 12/29/18at 12:30; Admin Dose 4 MG; Start 12/28/18 at 04:30 Aspirin (Aspirin) 81 mg DAILY PO Last administered on 12/31/18at 08:34; Admin Dose 81 MG; Start 12/28/18 at 09:00 Nitroglycerin (Nitroglycerin (Sl Tab) 0.4 Mg) 1 tab Q5M PRN SL .CHEST PAIN Last administered on 12/28/18at 09:55; Admin Dose 1 TAB; Start 12/28/18 at 04:30 Diagnostic Test (Pha) (Accu-Chek) 1 ea 02 XX Last administered on 12/31/18at 01:01; Admin Dose 1 EA; Start 12/29/18 at 02:00 Insulin Aspart (Novolog Insulin Pen) NOVOLOG *MODERATE* ALGORI... Q4 SC Last administered on 12/29/18at 21:10; Admin Dose 2 UNIT; Start 12/28/18 at 05:00 Miscellaneous Information 1 ea NOTE XX ; Start 12/28/18 at 05:00 Glucose (Glutose) 15 gm Q15M PRN PO DECREASED GLUCOSE; Start 12/28/18 at 05:00 Glucose (Glutose) 22.5 gm Q15M PRN PO DECREASED GLUCOSE; Start 12/28/18 at 05:00 Dextrose (D50w Syringe) 25 ml Q15M PRN IV DECREASED GLUCOSE; Start 12/28/18 at 05:00 Dextrose (D50w Syringe) 50 ml Q15M PRN IV DECREASED GLUCOSE; Start 12/28/18 at 05:00 Glucagon (Glucagen) 1 mg Q15M PRN IM DECREASED GLUCOSE; Start 12/28/18 at 05:00 Glucose (Glutose) 15 gm Q15M PRN BUCCAL DECREASED GLUCOSE; Start 12/28/18 at 05:00 Carvedilol (Coreg) 6.25 mg BID PO Last administered on 12/31/18 08:35; Admin Dose 6.25 MG; Start 12/28/18 at 13:00 Atorvastatin Calcium (Lipitor) 80 mg HS PO Last administered on 12/30/18 21:00; Admin Dose 80 MG; Start 12/29/18 at 21:00 Piperacillin Sod/ Tazobactam Sod 50 ml @ 100 mls/hr Q6 IVPB Last administered on 12/31/18 05:50; Admin Dose 100 MLS/HR; Start 12/28/18 at 18:00 Phenol (Cepastat Lozenge) 1 lozenge Q1H PRN MT COUGH Last administered on 12/30/18 19:50; Admin Dose 1 LOZENGE; Start 12/28/18 at 17:30 Vancomycin HCl (Vanco Iv Per Pharmacy) VANCOMYCIN PER PHARMACY PER PROTOCOL XX ; Start 12/29/18 at 05:30 Escitalopram Oxalate (Lexapro) 10 mg DAILY PO Last administered on 12/31/18 08:34; Admin Dose 10 MG; Start 12/29/18 at 09:30 Risedronate (Actonel) 35 mg Tu@AC BREAKFAST PO ; Start 12/30/18 at 07:00 Mirtazapine (Remeron) 15 mg HS PO Last administered on 12/30/18 21:01; Admin Dose 15 MG; Start 12/29/18 at 21:00 Vancomycin HCl 250 ml @ 125 mls/hr Q36H IVPB Last administered on 12/30/18 17:46; Admin Dose 125 MLS/HR; Start 12/30/18 at 18:00 Pantoprazole (Protonix Tab) 40 mg DAILY@06 PO Last administered on 12/31/18 05:51; Admin Dose 40 MG; Start 12/30/18 at 06:00 Docusate Sodium (Colace) 100 mg BID PO Last administered on 12/31/18 08:34; Adm in Dose 100 MG; Start 12/29/18 at 18:30 PATTI CALLEJAS MD December 31, 2018 09:00
--- NOTE | 2018-12-31 09:46 | CONS ---
Assessment/Plan Assessment/Plan Hospital Course (Demo Recall) 83 yo with STEMI/new LBBB, with severe 2V CAD, culprit lesion is LAD with SHERIN 2 flow on cath, with ischemic cardiomyopathy, lvef 40-45% and severe aortic regurgitation. LOUIE negative for vegetations. Imp: [place] with new LBBB acute systolic heart failure, improved with diuresis Severe aortic regurgitation which is chronic per Dr. Archuleta (opt sales enablement lead), and moderate mitral regurgitation Bacteremia, with no evidence of vegetations on LOUIE htn, controlled CKD with cr 1.8 on presentation, chronic and stable Recommendations: Continue asa, carvedilol, statin No peggy/arb due to renal insufficiency After discussion with Dr. Archuleta, review of patient comorbidities including dementia and CKD, patient will transfer to [facility] for high risk PCI to LAD and RCA, with possible staged TAVR for severe AI Antibiotics for gram positive bacteremia Consultation Date/Type/Reason Admit Date/Time December 28, 2018 at 03:23 Initial Consult Date 12/28/18 Type of Consult Cardiology Requesting Provider: KRYSTAL BERNARD Date/Time of Note DATE: 12/31/18 TIME: 09:43 24 HR Interval Summary Free Text/Dictation This am resting comfortably, c/o need to move bowels, no dyspnea Exam/Review of Systems Vital Signs Vitals Vital Signs Date Temp Pulse Resp B/P (MAP) Pulse Ox O2 O2 Flow FiO2 Time Delivery Rate 12/31/18 71 08:36 12/31/18 97.4 20 133/58 98 Nasal 07:44 (83) Cannula 12/31/18 2.0 02:03 12/29/18 45 05:15 Intake and Output 12/30/18 12/30/18 12/31/18 1515:00 23:00 07:00 IntakeIntake Total 172.5 ml 230 ml 400 ml OutputOutput Total 340 ml 330 ml 600 ml BalanceBalance -167.5 ml -100 ml -200 ml Exam Constitutional: alert, well developed Psych: nl mood/affect Head: normocephalic, atraumatic Eyes: EOMI, nl lids, nl sclera ENMT: nl external ears & nose Neck: supple; No jvd, No bruits Respiratory: clear to auscultation, normal air movement Cardiovascular: regular rate and rhythm, murmurs/extra sounds (systolic murmur) Gastrointestinal: soft, non-tender Musculoskeletal: nl extremities to inspection Extremities: No edema Neurological: nl mental status, nl speech Skin: nl turgor; No rash or lesions Labs Result Diagram: 12/30/18 0337 12/31/18 0646 Results 24hrs Laboratory Tests Test 12/30/18 11:23 12/30/18 12:21 12/30/18 12:29 12/30/18 16:40 Activated 33.8 39.0 H Partial Thromboplast Time Bedside Glucose 119 110 Test 12/30/18 20:55 12/31/18 00:59 12/31/18 05:47 12/31/18 06:46 Bedside Glucose 136 101 111 Blood Urea Nitrogen 53 H Creatinine 1.89 H Test 12/31/18 08:33 Bedside Glucose 108 Medications Medications Current Medications IV Flush (NS 3 ml) 3 ml PER PROTOCOL IV ; Start 12/28/18 at 04:30 Ondansetron HCl (Zofran Inj) 4 mg Q6H PRN IV NAUSEA/VOMITING Last administered on 12/29/18at 12:30; Admin Dose 4 MG; Start 12/28/18 at 04:30 Aspirin (Aspirin) 81 mg DAILY PO Last administered on 12/31/18at 08:34; Admin Dose 81 MG; Start 12/28/18 at 09:00 Nitroglycerin (Nitroglycerin (Sl Tab) 0.4 Mg) 1 tab Q5M PRN SL .CHEST PAIN Last administered on 12/28/18at 09:55; Admin Dose 1 TAB; Start 12/28/18 at 04:30 Diagnostic Test (Pha) (Accu-Chek) 1 ea 02 XX Last administered on 12/31/18at 01:01; Admin Dose 1 EA; Start 12/29/18 at 02:00 Insulin Aspart (Novolog Insulin Pen) NOVOLOG *MODERATE* ALGORI... Q4 SC Last administered on 12/29/18at 21:10; Admin Dose 2 UNIT; Start 12/28/18 at 05:00 Miscellaneous Information 1 ea NOTE XX ; Start 12/28/18 at 05:00 Glucose (Glutose) 15 gm Q15M PRN PO DECREASED GLUCOSE; Start 12/28/18 at 05:00 Glucose (Glutose) 22.5 gm Q15M PRN PO DECREASED GLUCOSE; Start 12/28/18 at 05:00 Dextrose (D50w Syringe) 25 ml Q15M PRN IV DECREASED GLUCOSE; Start 12/28/18 at 05:00 Dextrose (D50w Syringe) 50 ml Q15M PRN IV DECREASED GLUCOSE; Start 12/28/18 at 05:00 Glucagon (Glucagen) 1 mg Q15M PRN IM DECREASED GLUCOSE; Start 12/28/18 at 05:00 Glucose (Glutose) 15 gm Q15M PRN BUCCAL DECREASED GLUCOSE; Start 12/28/18 at 05:00 Carvedilol (Coreg) 6.25 mg BID PO Last administered on 12/31/18at 08:35; Admin Dose 6.25 MG; Start 12/28/18 at 13:00 Atorvastatin Calcium (Lipitor) 80 mg HS PO Last administered on 12/30/18at 21:00; Admin Dose 80 MG; Start 12/29/18 at 21:00 Piperacillin Sod/ Tazobactam Sod 50 ml @ 100 mls/hr Q6 IVPB Last administered on 12/31/18at 05:50; Admin Dose 100 MLS/HR; Start 12/28/18 at 18:00 Phenol (Cepastat Lozenge) 1 lozenge Q1H PRN MT COUGH Last administered on 12/30/18at 19:50; Admin Dose 1 LOZENGE; Start 12/28/18 at 17:30 Vancomycin HCl (Vanco Iv Per Pharmacy) VANCOMYCIN PER PHARMACY PER PROTOCOL XX ; Start 12/29/18 at 05:30 Escitalopram Oxalate (Lexapro) 10 mg DAILY PO Last administered on 12/31/18at 08:34; Admin Dose 10 MG; Start 12/29/18 at 09:30 Risedronate (Actonel) 35 mg Tu@AC BREAKFAST PO ; Start 12/30/18 at 07:00 Mirtazapine (Remeron) 15 mg HS PO Last administered on 12/30/18at 21:01; Admin Dose 15 MG; Start 12/29/18 at 21:00 Vancomycin HCl 250 ml @ 125 mls/hr Q36H IVPB Last administered on 12/30/18at 17:46; Admin Dose 125 MLS/HR; Start 12/30/18 at 18:00 Pantoprazole (Protonix Tab) 40 mg DAILY@06 PO Last administered on 5/8/19at 05:51; Admin Dose 40 MG; Start 12/30/18 at 06:00 Docusate Sodium (Colace) 100 mg BID PO Last administered on 12/31/18at 08:34; Admin Dose 100 MG; Start 12/29/18 at 18:30 RODRIGUEZ GARZA December 31, 2018 09:46
--- NOTE | 2018-12-31 11:14 | PDOCDIS ---
Discharge Instructions CONDITION [id number] Patient Condition: [id number] Serious KRYSTAL BERNARD December 31, 2018 11:14
--- NOTE | 2018-12-31 11:24 | DS ---
Date/Time of Note Date/Time of Note DATE: 12/31/18 TIME: 11:15 Discharge Summary Admission/Discharge Info Admit Date/Time December 28, 2018 at 03:23 Discharge Date/Time Discharge Diagnosis #Acute WI- possible STEMI with LBBB - patient had cardiac cath on 12/28, found wi th: Severe 2 vessel CAD, LAD and RCA, LAD is culprit with francine 2 flow, and cardiomyopathy with LVEF 35%. Again patient also with severe aortic regurgitation and at least moderate mitral regurgitation. #Acute CHF exacerbation -slowly improving - likely due to acute ischemic CAD/STEMI -status post nitro gtt earlier this admission, now off this. #Bacteremia: 2 out of 2 bottles positive for coagulase-negative staph. Patient also being treated for likely upper respiratory infection # Acute kidney injury on CKD III 2/2 Hemodynamics from CHF + NSTEMI # dementia # hypertension # dyslipidemia #History of arrhythmia Patient Condition: Serious Procedures A. Date/Time of Note Date/Time of Note DATE: 12/28/18 TIME: 11:48 Operative Report Procedure Date: December 28, 2018 Preoperative Diagnosis STEMI, new LBBB Postoperative Diagnosis Sever 2 vessel CAD, LAD and RCA, LAD is culprit with francine 2 flow, and cardiomyopathy with LVEF 35% Operation/Procedure Performed Coronary angiography Left heart catheterization Left ventriculography Moderate sedation with versed and fentanyl B. LOUIE: LOUIE negative for vegetations. Hx of Present Illness 83-year-old female with reported history of dementia, hypertension, dyslipidemia, severe MR and aortic stenosis, arrhythmia who was brought to the ER for chest pain and shortness of breath. Patient is not able to provide history. In the ER, family was at the bedside and provided some information. Patient has been placed on a BiPAP for shortness of breath. Initial ABG shows pH of 7.27, PCO2 53, PO2 107, bicarb 24, on 100% FiO2 while on BiPAP. Chest x- ray shows mild pulmonary edema. Her first troponin was found to be elevated at 0.7, the second just resulted and is even higher at 3.4. Initial EKG shows LBBB, repeat EKG without LBBB. Patient did remove her BIPAP to go to rest room and hospitalist noticed that she was short of breath especially when walking. ER physician reached out to patient's lumber carrier operator, Dr. Arabella Patel , who reviewed the patient's records and stated that her last EKG was from September 2017 and the patient did not have a left bundle branch block at that time and felt that this left bundle branch block was new. Echo was last done in March 2018 showing an EF of 60%, severe MR, and aortic stenosis. Family has reportedly opted for no surgery given the patient's age and advanced dementia. Hospital Course Patient was initially admitted to telemetry floor, however after admission up to [facility], rapid response was called for worsening pressure-like chest pain and dyspnea. The patient had coarse breath sounds and pulmonary edema on CXR; and was saturating low 90s on oxygen facemask so was placed on BiPAP. Also given sublingual nitro and IV lasix with relief of dyspnea and chest pain.EKG was done at that time showing complete LBBB. Code STEMI was also called at that time after elevation of troponin was found and patient was seen by cardiology team and cardiothoracic surgery team. Patient was taken to cardiac cath. LV gram showed 30% EF and coronary angio showed 90% disease of the LAD and disease along the RCA. Patient was placed in the ICU and started on heparin drip and also required nitro glycerin drip at one point as well. Patient also required BiPAP for pulmonary edema which improved. Patient was evaluated for the need for CABG, however she was also treated for coagulase negative staph bacteremia 2 out of 2 bottles and elevated white blood cell count secondary to this, placed on antibiotics for that. White blood cell count improved as it was trending down and vital signs are stable overall. Patient also underwent LOUIE that did not show any apparent vegetations. Patient was transferred out of the intensive care unit and is presently on telemetry floor. Patient was continued on cardiac medications. Sloop Captain here called patient's other lumber carrier operator Dr. Archuleta at [facility], and after review of patient comorbidities including dementia and CKD, patient will transfer to [facility] for high risk PCI to LAD and RCA, with possible staged TAVR for severe AI. See printed medicine reconciliation sheet for full list of transfer medications. Home Meds Reported Medications Atenolol* (Atenolol*) 25 Mg Tablet, 25 MG PO DAILY, #30 TAB 12/29/18 Icosapent Ethyl (VASCEPA) 1 Gm Capsule, 2 GM PO BID, CAP 5/6/19 Linagliptin (TRADJENTA) 5 Mg Tablet, 5 MG PO DAILY, TAB 12/29/18 Risedronate* (Actonel*) 35 Mg Tablet, 35 MG PO Q7D, #4 TAB 12/29/18 Dexlansoprazole (Dexilant) 60 Mg Cap., 60 MG PO DAILY, #30 CAP 12/29/18 Fenofibrate Nanocrystallized* (Fenofibrate*) 145 Mg Tablet, 145 MG PO DAILY, TAB 12/29/18 Rosuvastatin Calcium* (Crestor*) 40 Mg Tablet, 40 MG PO QHS, #30 TAB 12/29/18 Escitalopram Oxalate* (Lexapro*) 10 Mg Tablet, 10 MG PO DAILY, #30 TAB 12/29/18 Mirtazapine* (Mirtazapine*) 15 Mg Tablet, 15 MG PO HS, TAB 12/29/18 Tramadol Hcl* (Ultram*) 50 Mg Tablet, 50 MG PO Q6H PRN for PAIN, TAB 12/29/18 Furosemide* (Furosemide*) 40 Mg Tablet, 40 MG PO DAILY, TAB 12/29/18 Allopurinol* (Allopurinol*) 300 Mg Tablet, 300 MG PO DAILY, TAB 12/29/18 Folic Acid* (Folic Acid*) 1 Mg Tablet, 1 MG PO DAILY, TAB 12/29/18 Ergocalciferol (Vitamin D2) (VITAMIN D2) 50,000 Unit Capsule, 46696 UNIT PO ONCE A WEEK, CAP 12/29/18 Ferrous Sulfate* (Ferrous Sulfate*) 325 Mg Tabec, 325 MG PO TID, TAB 12/29/18 Hydralazine Hcl* (Apresoline*) 50 Mg Tab, 50 MG PO TID, #90 TAB 12/29/18 Primary Care Provider Care Physician No Primary Time spent on discharge: > 30 minutes Pending Labs Laboratory Tests Test 12/30/18 11:23 12/30/18 12:21 12/30/18 12:29 12/30/18 16:40 Activated 33.8 39.0 Partial Thrombo Sec (23.0-35.0) Sec (23.0-35.0 plast Time ) Bedside 119 110 Glucose mg/dL (70-220) mg/dL (70-220) Test 12/30/18 20:55 12/31/18 00:59 12/31/18 05:47 12/31/18 06:46 Bedside 136 101 111 Glucose mg/dL (70-220) mg/dL (70-220) mg/dL (70-220) Blood Urea 53 Nitrogen mg/dl (7-20) Creatinine 1.89 mg/dl (0.44-1. 00) Test 12/31/18 08:33 Bedside 108 Glucose mg/dL (70-220) KRYSTAL BERNARD December 31, 2018 11:24
[2018-12-31] MEDS: NITROGLYCERIN (SL) 0.4 MG TAB SL PRN ×3 (16:52→22:02)
[2018-12-31] MEDS ORDERED: IPRATROPIUM (NEB) 0.5 MG/2.5 ML AMP HHN ONE (20:00)
[2018-12-31] MEDS ORDERED: LEVALBUTEROL (NEB) 1.25 MG/0.5 ML AMP HHN ONE (20:00)
[2018-12-31] MEDS ORDERED: FUROSEMIDE 40 MG INJ IV ONE (20:30)
[2018-12-31] MEDS: MIRTAZAPINE 15 MG TAB PO SCH (20:33)
[2018-12-31] MEDS: ATORVASTATIN 80 MG TAB PO SCH (20:33)
[2018-12-31] MEDS ORDERED: morphine 2 MG INJ IV ONE (21:56)
[2019-01-01] VITALS (77 sets, daily range): BP systolic 68–129; BP diastolic 31–65; PULSE 63–91; RESP 15–35
[2019-01-01] MEDS: NITROGLYCERIN 50 MG/D5W (PMX) 250 ML IV SCH (00:19)
[2019-01-01] MEDS: PIPER-TAZO 2.25 GM (PMX) 50 ML IVPB SCH ×4 (00:19→18:07)
[2019-01-01] MEDS: INSULIN ASPART [NOVOLOG] 3 ML PEN SC SCH ×6 (01:00→21:00)
[2019-01-01] MEDS: ACCU-CHEK XX SCH (02:00)
[2019-01-01] MEDS: PANTOPRAZOLE (EC) 40 MG TAB PO SCH (05:54)
[2019-01-01] MEDS: VANCOMYCIN 1 GM 250 ML IVPB SCH (06:38)
--- NOTE | 2019-01-01 07:52 | CONS ---
Assessment/Plan Assessment/Plan Hospital Course (Demo Recall) 83 yo with STEMI/new LBBB, with severe 2V CAD, culprit lesion is LAD with SHERIN 2 flow on cath, with ischemic cardiomyopathy, lvef 40-45% and severe aortic regurgitation. LOUIE negative for vegetations. Overnight developed acute heart failure. Imp: AL with new LBBB acute systolic heart failure, on bipap Severe aortic regurgitation which is chronic per Dr. Archuleta (opt crm system administrator), and moderate mitral regurgitation Bacteremia, with no evidence of vegetations on LOUIE htn, controlled CKD with cr 1.8 on presentation, with acute worsening Recommendations: Will give an additional furosemide 60 mg iv, given poor response to 40 mg. Continue asa, carvedilol, statin No peggy/arb due to renal insufficiency Patient is pending transfer to [facility] for high risk PCI to LAD and RCA, with possible staged TAVR for severe AI However, if unable to facilitate transfer, I could reasonably perform PCI on the patient, and would plan to do this on Saturday if she remains at this hospital Antibiotics for gram positive bacteremia Consultation Date/Type/Reason Admit Date/Time December 28, 2018 at 03:23 Initial Consult Date 12/28/18 Type of Consult Cardiology Requesting Provider: KRYSTAL BERNARD Date/Time of Note DATE: 01/01/19 TIME: 07:46 24 HR Interval Summary Free Text/Dictation Overnight, became dyspneic, developed chest pain, transferred back to ICU. At present, patient on bipap. Exam/Review of Systems Vital Signs Vitals Vital Signs Date Temp Pulse Resp B/P (MAP) Pulse Ox O2 O2 Flow FiO2 Time Delivery Rate 01/01/19 66 25 113/33 98 06:30 (59) 01/01/19 BIPAP 06:00 01/01/19 50 05:59 01/01/19 97.5 04:00 12/31/18 2.0 20:30 Intake and Output 12/31/18 12/31/18 01/01/19 1515:00 23:00 07:00 IntakeIntake Total 252 ml 650 ml 329.5 ml OutputOutput Total 880 ml 270 ml BalanceBalance 252 ml -230 ml 59.5 ml Exam Constitutional: alert, non-verbal Psych: nl mood/affect Head: normocephalic, atraumatic Eyes: EOMI, nl lids ENMT: nl external ears & nose Neck: No jvd, No bruits Respiratory: crackles/rales Cardiovascular: regular rate and rhythm, murmurs/extra sounds Gastrointestinal: soft, non-tender Musculoskeletal: nl extremities to inspection Extremities: No edema Skin: nl turgor Labs Result Diagram: 01/01/19 0432 01/01/19 0432 Results 24hrs Laboratory Tests Test 12/31/18 08:33 12/31/18 11:30 12/31/18 14:23 12/31/18 17:05 Bedside Glucose 108 144 137 Lab Scanned REFERENCE LAB Report Test 12/31/18 19:52 12/31/18 19:53 01/01/19 02:00 01/01/19 04:32 Blood Gas Blood arterial Specimen Source Arterial Blood 12/31/2018 8:00:19 Date Drawn PM Arterial Blood pH 7.362 (Temp corrected) Arterial Blood 43.4 pCO2 (Temp correct) Arterial Blood 75.9 L pO2 (Temp corrected) Arterial Blood 24.1 HCO3 Arterial Blood -1.4 Base Excess Arterial Blood 93.1 L Oxygen Saturation Francis Test ACCEPTAB Arterial Blood Right Radial Gas Puncture Site Arterial 0.3 Blood Carboxyhemo globin Arterial Blood 0.1 Methemoglobin Blood Gas A-a O2 108.7 H Differential Oxyhemoglobin 92.7 L Percent Blood Gas 37.0 Temperature Blood Gas NASAL CANNULA Modality FiO2 33.0 Blood Gas FL Notified Whom Blood Gas 12/31/2018 8:12:50 Notified Time PM Bedside Glucose 161 138 White Blood Count 9.1 Red Blood Count 2.64 L Hemoglobin 8.0 L Hematocrit 26.2 L Mean Corpuscular 99.2 Volume Mean Corpuscular 30.3 Hemoglobin Mean Corpuscular 30.5 L Hemoglobin Concen t Red Cell 16.5 H Distribution Width Platelet Count 260 Mean Platelet 10.0 Volume Immature 0.400 Granulocytes % Neutrophils % 83.6 H Lymphocytes % 11.4 L Monocytes % 4.3 Eosinophils % 0.1 Basophils % 0.2 Nucleated Red 0.0 Blood Cells % Immature 0.040 H Granulocytes # Neutrophils # 7.6 H Lymphocytes # 1.0 Monocytes # 0.4 Eosinophils # 0.0 Basophils # 0.0 Nucleated Red 0.0 Blood Cells # Sodium Level 147 H Potassium Level 4.1 Chloride Level 113 H Carbon Dioxide 27 Level Anion Gap 7 Blood Urea 55 H Nitrogen Creatinine 2.28 H Est Glomerular Filtrat Rate mL/min Glucose Level 117 Calcium Level 8.7 Total Bilirubin 0.2 Direct Bilirubin 0.00 Indirect 0.2 Bilirubin Aspartate Amino 56 H Transf (AST/SGOT) Alanine 26 Aminotransferase (ALT/SGPT) Alkaline 74 Phosphatase Total Protein 5.6 L Albumin 3.0 L Globulin 2.60 Albumin/Globulin 1.15 Ratio Vancomycin Level 16.2 Trough Test 01/01/19 05:54 Bedside Glucose 126 Imaging Imaging EKG last night demonstrates nsr/sinus tach at 100 bpm with left bundle branch block Medications Medications Current Medications IV Flush (NS 3 ml) 3 ml PER PROTOCOL IV ; Start 12/28/18 at 04:30 Ondansetron HCl (Zofran Inj) 4 mg Q6H PRN IV NAUSEA/VOMITING Last administered on 12/29/18at 12:30; Admin Dose 4 MG; Start 12/28/18 at 04:30 Aspirin (Aspirin) 81 mg DAILY PO Last administered on 12/31/18at 08:34; Admin Dose 81 MG; Start 12/28/18 at 09:00 Nitroglycerin (Nitroglycerin (Sl Tab) 0.4 Mg) 1 tab Q5M PRN SL .CHEST PAIN Last administered on 12/31/18at 22:02; Admin Dose 1 TAB; Start 12/28/18 at 04:30 Diagnostic Test (Pha) (Accu-Chek) 1 ea 02 XX Last administered on 12/31/18at 01:01; Admin Dose 1 EA; Start 12/29/18 at 02:00 Insulin Aspart (Novolog Insulin Pen) NOVOLOG *MODERATE* ALGORI... Q4 SC Last administered on 12/31/18at 20:51; Admin Dose 2 UNIT; Start 12/28/18 at 05:00 Miscellaneous Information 1 ea NOTE XX ; Start 12/28/18 at 05:00 Glucose (Glutose) 15 gm Q15M PRN PO DECREASED GLUCOSE; Start 12/28/18 at 05:00 Glucose (Glutose) 22.5 gm Q15M PRN PO DECREASED GLUCOSE; Start 12/28/18 at 05:00 Dextrose (D50w Syringe) 25 ml Q15M PRN IV DECREASED GLUCOSE; Start 12/28/18 at 05:00 Dextrose (D50w Syringe) 50 ml Q15M PRN IV DECREASED GLUCOSE; Start 12/28/18 at 05:00 Glucagon (Glucagen) 1 mg Q15M PRN IM DECREASED GLUCOSE; Start 12/28/18 at 05:00 Glucose (Glutose) 15 gm Q15M PRN BUCCAL DECREASED GLUCOSE; Start 12/28/18 at 05:00 Carvedilol (Coreg) 6.25 mg BID PO Last administered on 12/31/18 20:33; Admin Dose 6.25 MG; Start 12/28/18 at 13:00 Atorvastatin Calcium (Lipitor) 80 mg HS PO Last administered on 12/31/18 20:33; Admin Dose 80 MG; Start 12/29/18 at 21:00 Piperacillin Sod/ Tazobactam Sod 50 ml @ 100 mls/hr Q6 IVPB Last administered on 01/01/19 05:54; Admin Dose 100 MLS/HR; Start 12/28/18 at 18:00 Phenol (Cepastat Lozenge) 1 lozenge Q1H PRN MT COUGH Last administered on 12/30/18 19:50; Admin Dose 1 LOZENGE; Start 12/28/18 at 17:30 Vancomycin HCl (Vanco Iv Per Pharmacy) VANCOMYCIN PER PHARMACY PER PROTOCOL XX ; Start 12/29/18 at 05:30 Escitalopram Oxalate (Lexapro) 10 mg DAILY PO Last administered on 12/31/18 08:34; Admin Dose 10 MG; Start 12/29/18 at 09:30 Risedronate (Actonel) 35 mg Tu@AC BREAKFAST PO ; Start 12/30/18 at 07:00 Mirtazapine (Remeron) 15 mg HS PO Last administered on 12/31/18 20:33; Admin Dose 15 MG; Start 12/29/18 at 21:00 Vancomycin HCl 250 ml @ 125 mls/hr Q36H IVPB Last administered on 01/01/19 06:38; Admin Dose 125 MLS/HR; Start 12/30/18 at 18:00 Pantoprazole (Protonix Tab) 40 mg DAILY@06 PO Last administered on 01/01/19 05:54; Admin Dose 40 MG; Start 12/30/18 at 06:00 Docusate Sodium (Colace) 100 mg BID PO Last administered on 12/31/18 08:34; Admin Dose 100 MG; Start 12/29/18 at 18:30 Nitroglycerin/ Dextrose 250 ml @ 1.5 mls/hr TITRATE IV Last administered on 01/01/19at 00:19; Admin Dose 1.5 MLS/HR; Start 12/31/18 at 23:00 RODRIGUEZ GARZA January 01, 2019 07:52
[2019-01-01] MEDS ORDERED: FUROSEMIDE 40 MG INJ IV ONE (08:00)
[2019-01-01] MEDS: ASPIRIN 81 MG TAB PO SCH (09:04)
[2019-01-01] MEDS: ESCITALOPRAM 10 MG TAB PO SCH (09:04)
[2019-01-01] MEDS: DOCUSATE SODIUM 100 MG CAP PO SCH ×2 (09:05→21:33)
--- NOTE | 2019-01-01 09:06 | CONS ---
Assessment/Plan Assessment/Plan Assessment/Plan (Daily) 1. Acute kidney injury on CKD III 2/2 Hemodynamics from CHF + NSTEMI 2. Hypokalemia 3. Hypernatremia 4. acute NSTEMI s/p LHC showed multivessel obstructive CAD 5. CAD mulitivessels obstructive Plan: IV lasix 20mg iV daily IV abx for bactremia, renally dose all abx and monitor electrolytes s/p LOUIE on 12/30/18 showed severe AI and no vegetations, Cr bumped to 2.0 - As per Group Insurance Specialist discussion with Primary caridology pt has chronic AI and CKD- After discussion pt deemed high risk for CABG so recommended for transfer to [facility] for staged complex PCI of LAD and RCA, and possible staged TAVR- family in agreement for transfer will continue to follow up Consultation Date/Type/Reason Admit Date/Time December 28, 2018 at 03:23 Initial Consult Date 12/28/18 Type of Consult NEPHROLOGY Requesting Provider: KRYSTAL BERNARD Date/Time of Note DATE: 01/01/19 TIME: 09:06 Exam/Review of Systems Exam Vitals Vital Signs Date Temp Pulse Resp B/P (MAP) Pulse Ox O2 O2 Flow FiO2 Time Delivery Rate 01/01/19 66 25 113/33 98 06:30 (59) 01/01/19 BIPAP 06:00 01/01/19 50 05:59 01/01/19 97.5 04:00 12/31/18 2.0 20:30 Intake and Output 12/31/18 12/31/18 01/01/19 1515:00 23:00 07:00 IntakeIntake Total 252 ml 650 ml 329.5 ml OutputOutput Total 880 ml 270 ml BalanceBalance 252 ml -230 ml 59.5 ml Results Result Diagram: 01/01/19 0432 01/01/19 0432 Results 24hrs Laboratory Tests Test 12/31/18 11:30 12/31/18 14:23 12/31/18 17:05 12/31/18 19:52 Lab Scanned REFERENCE LAB Report Bedside Glucose 144 137 Blood Gas Blood arterial Specimen Source Arterial Blood 12/31/2018 8:00:19 Date Drawn PM Arterial Blood pH 7.362 (Temp corrected) Arterial Blood 43.4 pCO2 (Temp correct) Arterial Blood 75.9 L pO2 (Temp corrected) Arterial Blood 24.1 HCO3 Arterial Blood -1.4 Base Excess Arterial Blood 93.1 L Oxygen Saturation Francis Test ACCEPTAB Arterial Blood Right Radial Gas Puncture Site Arterial 0.3 Blood Carboxyhemo globin Arterial Blood 0.1 Methemoglobin Blood Gas A-a O2 108.7 H Differential Oxyhemoglobin 92.7 L Percent Blood Gas 37.0 Temperature Blood Gas NASAL CANNULA Modality FiO2 33.0 Blood Gas JIMMY Notified Whom Blood Gas 12/31/2018 8:12:50 Notified Time PM Test 12/31/18 19:53 01/01/19 02:00 01/01/19 04:32 01/01/19 05:54 Bedside Glucose 161 138 126 White Blood Count 9.1 Red Blood Count 2.64 L Hemoglobin 8.0 L Hematocrit 26.2 L Mean Corpuscular 99.2 Volume Mean Corpuscular 30.3 Hemoglobin Mean Corpuscular 30.5 L Hemoglobin Concen t Red Cell 16.5 H Distribution Width Platelet Count 260 Mean Platelet 10.0 Volume Immature 0.400 Granulocytes % Neutrophils % 83.6 H Lymphocytes % 11.4 L Monocytes % 4.3 Eosinophils % 0.1 Basophils % 0.2 Nucleated Red 0.0 Blood Cells % Immature 0.040 H Granulocytes # Neutrophils # 7.6 H Lymphocytes # 1.0 Monocytes # 0.4 Eosinophils # 0.0 Basophils # 0.0 Nucleated Red 0.0 Blood Cells # Sodium Level 147 H Potassium Level 4.1 Chloride Level 113 H Carbon Dioxide 27 Level Anion Gap 7 Blood Urea 55 H Nitrogen Creatinine 2.28 H Est Glomerular Filtrat Rate mL/min Glucose Level 117 Calcium Level 8.7 Total Bilirubin 0.2 Direct Bilirubin 0.00 Indirect 0.2 Bilirubin Aspartate Amino 56 H Transf (AST/SGOT) Alanine 26 Aminotransferase (ALT/SGPT) Alkaline 74 Phosphatase Total Protein 5.6 L Albumin 3.0 L Globulin 2.60 Albumin/Globulin 1.15 Ratio Vancomycin Level 16.2 Trough Medications Medication Current Medications IV Flush (NS 3 ml) 3 ml PER PROTOCOL IV ; Start 12/28/18 at 04:30 Ondansetron HCl (Zofran Inj) 4 mg Q6H PRN IV NAUSEA/VOMITING Last administered on 12/29/18at 12:30; Admin Dose 4 MG; Start 12/28/18 at 04:30 Aspirin (Aspirin) 81 mg DAILY PO Last administered on 12/31/18 08:34; Admin Dose 81 MG; Start 12/28/18 at 09:00 Nitroglycerin (Nitroglycerin (Sl Tab) 0.4 Mg) 1 tab Q5M PRN SL .CHEST PAIN Last administered on 12/31/18 22:02; Admin Dose 1 TAB; Start 12/28/18 at 04:30 Diagnostic Test (Pha) (Accu-Chek) 1 ea 02 XX Last administered on 12/31/18 01:01; Admin Dose 1 EA; Start 12/29/18 at 02:00 Insulin Aspart (Novolog Insulin Pen) NOVOLOG *MODERATE* ALGORI... Q4 SC Last ad ministered on 12/31/18 20:51; Admin Dose 2 UNIT; Start 12/28/18 at 05:00 Miscellaneous Information 1 ea NOTE XX ; Start 12/28/18 at 05:00 Glucose (Glutose) 15 gm Q15M PRN PO DECREASED GLUCOSE; Start 12/28/18 at 05:00 Glucose (Glutose) 22.5 gm Q15M PRN PO DECREASED GLUCOSE; Start 12/28/18 at 05:00 Dextrose (D50w Syringe) 25 ml Q15M PRN IV DECREASED GLUCOSE; Start 12/28/18 at 05:00 Dextrose (D50w Syringe) 50 ml Q15M PRN IV DECREASED GLUCOSE; Start 12/28/18 at 05:00 Glucagon (Glucagen) 1 mg Q15M PRN IM DECREASED GLUCOSE; Start 12/28/18 at 05:00 Glucose (Glutose) 15 gm Q15M PRN BUCCAL DECREASED GLUCOSE; Start 12/28/18 at 05:00 Carvedilol (Coreg) 6.25 mg BID PO Last administered on 12/31/18 20:33; Admin Dose 6.25 MG; Start 12/28/18 at 13:00 Atorvastatin Calcium (Lipitor) 80 mg HS PO Last administered on 12/31/18 20:33; Admin Dose 80 MG; Start 12/29/18 at 21:00 Piperacillin Sod/ Tazobactam Sod 50 ml @ 100 mls/hr Q6 IVPB Last administered on 01/01/19 05:54; Admin Dose 100 MLS/HR; Start 12/28/18 at 18:00 Phenol (Cepastat Lozenge) 1 lozenge Q1H PRN MT COUGH Last administered on 12/30/18at 19:50; Admin Dose 1 LOZENGE; Start 12/28/18 at 17:30 Vancomycin HCl (Vanco Iv Per Pharmacy) VANCOMYCIN PER PHARMACY PER PROTOCOL XX ; Start 12/29/18 at 05:30 Escitalopram Oxalate (Lexapro) 10 mg DAILY PO Last administered on 12/31/18 08:34; Admin Dose 10 MG; Start 12/29/18 at 09:30 Risedronate (Actonel) 35 mg Tu@AC BREAKFAST PO ; Start 12/30/18 at 07:00 Mirtazapine (Remeron) 15 mg HS PO Last administered on 12/31/18at 20:33; Admin Dose 15 MG; Start 12/29/18 at 21:00 Vancomycin HCl 250 ml @ 125 mls/hr Q36H IVPB Last administered on 01/01/19at 06:38; Admin Dose 125 MLS/HR; Start 12/30/18 at 18:00 Pantoprazole (Protonix Tab) 40 mg DAILY@06 PO Last administered on 01/01/19 05:54; Admin Dose 40 MG; Start 12/30/18 at 06:00 Docusate Sodium (Colace) 100 mg BID PO Last administered on 12/31/18 08:34; Admin Dose 100 MG; Start 12/29/18 at 18:30 Nitroglycerin/ Dextrose 250 ml @ 1.5 mls/hr TITRATE IV Last administered on 01/01/19 00:19; Admin Dose 1.5 MLS/HR; Start 12/31/18 at 23:00 PATTI CALLEJAS MD January 01, 2019 09:06
--- NOTE | 2019-01-01 09:57 | DS ---
Date/Time of Note Date/Time of Note DATE: 01/01/19 TIME: 09:56 Discharge Summary Admission/Discharge Info Admit Date/Time December 28, 2018 at 03:23 Discharge Date/Time Discharge Diagnosis #Acute UT- possible STEMI with LBBB - patient had cardiac cath on 12/28, found wi th: Severe 2 vessel CAD, LAD and RCA, LAD is culprit with francine 2 flow, and cardiomyopathy with LVEF 35%. Again patient also with severe aortic regurgitation and at least moderate mitral regurgitation. #Acute CHF exacerbation -slowly improving - likely due to acute ischemic CAD/STEMI -status post nitro gtt earlier this admission, now off this. #Bacteremia: 2 out of 2 bottles positive for coagulase-negative staph. Patient also being treated for likely upper respiratory infection # Acute kidney injury on CKD III 2/2 Hemodynamics from CHF + NSTEMI # dementia # hypertension # dyslipidemia #History of arrhythmia Patient Condition: Serious Hx of Present Illness 83-year-old female with reported history of dementia, hypertension, dyslipidemia, severe MR and aortic stenosis, arrhythmia who was brought to the ER for chest pain and shortness of breath. Patient is not able to provide history. In the ER, family was at the bedside and provided some information. Patient has been placed on a BiPAP for shortness of breath. Initial ABG shows pH of 7.27, PCO2 53, PO2 107, bicarb 24, on 100% FiO2 while on BiPAP. Chest x- ray shows mild pulmonary edema. Her first troponin was found to be elevated at 0.7, the second just resulted and is even higher at 3.4. Initial EKG shows LBBB, repeat EKG without LBBB. Patient did remove her BIPAP to go to rest room and hospitalist noticed that she was short of breath especially when walking. ER physician reached out to patient's office machine technician, Dr. Arabella Patel [phone], who reviewed the patient's records and stated that her last EKG was from September 2017 and the patient did not have a left bundle branch block at that time and felt that this left bundle branch block was new. Echo was last done in March 2018 showing an EF of 60%, severe MR, and aortic stenosis. Family has reportedly opted for no surgery given the patient's age and advanced dementia. Hospital Course Patient was initially admitted to telemetry floor, however after admission up to [facility], rapid response was called for worsening pressure-like chest pain and dyspnea. The patient had coarse breath sounds and pulmonary edema on CXR; and was saturating low 90s on oxygen facemask so was placed on BiPAP. Also given sublingual nitro and IV lasix with relief of dyspnea and chest pain.EKG was done at that time showing complete LBBB. Code STEMI was also called at that time after elevation of troponin was found and patient was seen by cardiology team and cardiothoracic surgery team. Patient was taken to cardiac cath. LV gram showed 30% EF and coronary angio showed 90% disease of the LAD and disease along the RCA. Patient was placed in the ICU and started on heparin drip and also required nitro glycerin drip at one point as well. Patient also required BiPAP for pulmonary edema which improved. Patient was evaluated for the need for CABG, however she was also treated for coagulase negative staph bacteremia 2 out of 2 bottles and elevated white blood cell count secondary to this, placed on antibiotics for that. White blood cell count improved as it was trending down and vital signs are stable overall. Patient also underwent LOUIE that did not show any apparent vegetations. Patient was transferred out of the intensive care unit and is presently on telemetry floor. Patient was continued on cardiac medications. Shaker Screen Operator here called patient's other office machine technician Dr. Archuleta at [facility], and after review of patient comorbidities including dementia and CKD, patient will transfer to [facility] for high risk PCI to LAD and RCA, with possible staged TAVR for severe AI. On the evening of December 31, 2018, patient had some worsening shortness of breath and had to be transferred back to the intensive care unit where she is presently now. She did receive an extra dose of IV Lasix and seen by cardiology and renal teams early on January 01, 2019. Plan is for transfer still. See printed medicine reconciliation sheet for full list of transfer medications. Home Meds Reported Medications Atenolol* (Atenolol*) 25 Mg Tablet, 25 MG PO DAILY, #30 TAB 12/29/18 Icosapent Ethyl (VASCEPA) 1 Gm Capsule, 2 GM PO BID, CAP 12/29/18 Linagliptin (TRADJENTA) 5 Mg Tablet, 5 MG PO DAILY, TAB 12/29/18 Risedronate* (Actonel*) 35 Mg Tablet, 35 MG PO Q7D, #4 TAB 12/29/18 Dexlansoprazole (Dexilant) 60 Mg James., 60 MG PO DAILY, #30 CAP 12/29/18 Fenofibrate Nanocrystallized* (Fenofibrate*) 145 Mg Tablet, 145 MG PO DAILY, TAB 12/29/18 Rosuvastatin Calcium* (Crestor*) 40 Mg Tablet, 40 MG PO QHS, #30 TAB 12/29/18 Escitalopram Oxalate* (Lexapro*) 10 Mg Tablet, 10 MG PO DAILY, #30 TAB 12/29/18 Mirtazapine* (Mirtazapine*) 15 Mg Tablet, 15 MG PO HS, TAB 12/29/18 Tramadol Hcl* (Ultram*) 50 Mg Tablet, 50 MG PO Q6H PRN for PAIN, TAB 12/29/18 Furosemide* (Furosemide*) 40 Mg Tablet, 40 MG PO DAILY, TAB 12/29/18 Allopurinol* (Allopurinol*) 300 Mg Tablet, 300 MG PO DAILY, TAB 12/29/18 Folic Acid* (Folic Acid*) 1 Mg Tablet, 1 MG PO DAILY, TAB 12/29/18 Ergocalciferol (Vitamin D2) (VITAMIN D2) 50,000 Unit Capsule, 83036 UNIT PO ONCE A WEEK, CAP 12/29/18 Ferrous Sulfate* (Ferrous Sulfate*) 325 Mg Tabec, 325 MG PO TID, TAB 12/29/18 Hydralazine Hcl* (Apresoline*) 50 Mg Tab, 50 MG PO TID, #90 TAB 12/29/18 Primary Care Provider Care Physician No Primary Time spent on discharge: > 30 minutes Pending Labs Laboratory Tests Test 12/31/18 11:30 12/31/18 14:23 12/31/18 17:05 12/31/18 19:52 Lab Scanned REFERENCE Report LAB [id number] Bedside 144 137 Glucose mg/dL (70-220) mg/dL (70-220) Blood Gas Blood arterial Specimen Source Arterial Blood 12/31/2018 8:00: Date Drawn 19 PM Arterial Blood 7.362 (7.350-7 pH .450) (Temp corrected ) Arterial Blood 43.4 pCO2 mmhg (35-45) (Temp correct) Arterial Blood 75.9 pO2 mmHG (80-90.0) (Temp corrected ) Arterial Blood 24.1 HCO3 mmol/L (22.0-2 6.0) Arterial Blood -1.4 Base Excess mmol/L (-3.0-3 ) Arterial Blood 93.1 Oxygen Saturati mmHG (95.0-100 on .0) Francis Test ACCEPTAB Arterial Blood Right Radial Gas Puncture Site Arterial 0.3 Blood Carboxyhe % (0.0-3.0) moglobin Arterial Blood 0.1 Methemoglobin % (0.0-1.5) Blood Gas A-a 108.7 O2 mmHg (7.0-24.0 Differential ) Oxyhemoglobin 92.7 Percent % (93.0-99.0) Blood Gas 37.0 C Temperature Blood Gas NASAL CANNULA Modality FiO2 33.0 % Blood Gas OH Notified Whom Blood Gas 12/31/2018 8:12: Notified Time 50 PM Test 12/31/18 19:53 01/01/19 02:00 01/01/19 04:32 01/01/19 05:54 Bedside 161 138 126 Glucose mg/dL (70-220) mg/dL (70-220) mg/dL (70-220) White Blood 9.1 Count 10^3/ul (4.8-1 0.8) Red Blood 2.64 Count 10^6/ul (4.20- 5.40) Hemoglobin 8.0 g/dl (12.0-16. 0) Hematocrit 26.2 % (37.0-47.0) Mean 99.2 Corpuscular fl (82.0-101.0 Volume ) Mean 30.3 Corpuscular pg (29.0-33.0) Hemoglobin Mean 30.5 Corpuscular g/dl (32.0-37. Hemoglobin Conc 0) ent Red Cell 16.5 Distribution % (11.5-14.5) Width Platelet Count 260 10^3/UL (140-4 15) Mean Platelet 10.0 Volume fl (7.4-10.4) Immature 0.400 Granulocytes % % (0.001-0.429 ) Neutrophils % 83.6 % (39.0-77.0) Lymphocytes % 11.4 % (15.0-51.0) Monocytes % 4.3 % (0.0-11.0) Eosinophils % 0.1 % (0.0-7.0) Basophils % 0.2 % (0.0-2.0) Nucleated Red 0.0 Blood Cells % /100WBC (0.0-0 .0) Immature 0.040 Granulocytes # 10^3/ul (0.0-0 .031) Neutrophils # 7.6 10^3/ul (1.6-7 .5) Lymphocytes # 1.0 10^3/ul (0.8-2 .9) Monocytes # 0.4 10^3/ul (0.3-0 .9) Eosinophils # 0.0 10^3/ul (0.0-0 .5) Basophils # 0.0 10^3/ul (0.0-0 .1) Nucleated Red 0.0 Blood Cells # 10^3/ul (0.0-0 .0) Sodium Level 147 mmol/L (135-14 4) Potassium 4.1 Level mmol/L (3.5-5. 1) Chloride Level 113 mmol/L (97-110 ) Carbon Dioxide 27 Level mmol/L (21-31) Anion Gap 7 (5-13) Blood Urea 55 Nitrogen mg/dl (7-20) Creatinine 2.28 mg/dl (0.44-1. 00) Est Glomerular mL/min (>60) Filtrat Rate mL/min Glucose Level 117 mg/dl (70-220) Calcium Level 8.7 mg/dl (8.4-10. 2) Total 0.2 Bilirubin mg/dl (0.2-1.3 ) Direct 0.00 Bilirubin mg/dl (0.00-0. 20) Indirect 0.2 Bilirubin mg/dl (0-1.1) Aspartate Amino 56 Transf (AST/SGO IU/L (15-46) T) Alanine 26 Aminotransferas IU/L (13-69) e (ALT/SGPT) Alkaline 74 Phosphatase IU/L (42-121) Total Protein 5.6 g/dl (6.1-8.1) Albumin 3.0 g/dl (3.3-4.9) Globulin 2.60 g/dl (1.3-3.2) Albumin/Globuli 1.15 n Ratio Vancomycin 16.2 Level Trough ug/ml (10.0-20 .0) Test 01/01/19 09:06 Bedside 108 Glucose mg/dL (70-220) KRYSTAL BERNARD January 01, 2019 09:57
[2019-01-01] MEDS: FUROSEMIDE 40 MG INJ IV SCH (18:07)
--- NOTE | 2019-01-01 19:10 | RADRPT ---
Vent Rate: 100 bpm RR Interval: 0 msec MD Interval: 160 msec QRS Duration: 166 msec QT Interval: 424 msec QTC Interval: 546 msec P-R-T Dickens: 77 - 12 - 151 degrees Normal sinus rhythm Left bundle branch block Abnormal ECG Electronically Signed By: Mihir Mosher
[2019-01-01] MEDS: NITROGLYCERIN (SL) 0.4 MG TAB SL PRN ×2 (20:30→20:40)
[2019-01-01] MEDS: ATORVASTATIN 80 MG TAB PO SCH (21:33)
[2019-01-01] MEDS: MIRTAZAPINE 15 MG TAB PO SCH (21:33)
[2019-01-02] VITALS (72 sets, daily range): BP systolic 99–140; BP diastolic 28–97; PULSE 67–89; RESP 17–35
[2019-01-02] MEDS: PIPER-TAZO 2.25 GM (PMX) 50 ML IVPB SCH ×4 (00:27→17:07)
[2019-01-02] MEDS: INSULIN ASPART [NOVOLOG] 3 ML PEN SC SCH ×6 (00:28→21:00)
[2019-01-02] MEDS: ACCU-CHEK XX SCH (02:00)
[2019-01-02] MEDS: FUROSEMIDE 40 MG INJ IV SCH (05:19)
[2019-01-02] MEDS: PANTOPRAZOLE (EC) 40 MG TAB PO SCH (05:19)
[2019-01-02] MEDS: ASPIRIN 81 MG TAB PO SCH (08:31)
[2019-01-02] MEDS: DOCUSATE SODIUM 100 MG CAP PO SCH ×2 (08:31→21:24)
[2019-01-02] MEDS: ESCITALOPRAM 10 MG TAB PO SCH (08:31)
--- NOTE | 2019-01-02 08:50 | CONS ---
Assessment/Plan Assessment/Plan Hospital Course (Demo Recall) 83 yo with STEMI/new LBBB, with severe 2V CAD, culprit lesion is LAD with SHERIN 2 flow on cath, with ischemic cardiomyopathy, lvef 40-45% and severe aortic regurgitation. LOUIE negative for vegetations. Course complicated by acute heart failure, and recurrent chest pain. Imp: WI with new LBBB, and recurrence of chest pain acute systolic heart failure, improved, on 4 L nc Severe aortic regurgitation which is chronic per Dr. Archuleta (opt customs manager), and moderate mitral regurgitation Bacteremia, with no evidence of vegetations on LOUIE htn, controlled CKD with cr 1.8 on presentation, with acute worsening, awaiting a BMP for today Recommendations: Continue asa, statin Will load her with clopidogrel and give 75 mg daily thereafter because she will not be going for a CABG and would benefit from dual antiplatelet therapy post WI Increasing carvedilol for her cardiomyopathy and to decrease angina Adding imdur 30 mg po daily No peggy/arb due to renal insufficiency Patient is pending transfer to [facility] for high risk PCI to LAD and RCA, with possible staged TAVR for severe AI However, if unable to facilitate transfer, I could reasonably perform PCI on the patient, and would plan to do this on Saturday if she remains at this hospital. I plan to discuss this with the today over the phone with a Maur[place] odd jobs day worker. Antibiotics for gram positive bacteremia Dr. Cantu is covering this weekend Consultation Date/Type/Reason Admit Date/Time December 28, 2018 at 03:23 Initial Consult Date 12/28/18 Type of Consult Cardiology Requesting Provider: KRYSTAL BERNARD Date/Time of Note DATE: 01/02/19 TIME: 08:43 24 HR Interval Summary Free Text/Dictation Overnight, patient had chest pain, given sublingual nitro and drip started. At present patient appears comfortable, no subjective history from her secondary to dementia. Troponins reviewed and are elevated but trending downward from initial elevation when she presented. Subjective hx not possible: other (dementia) Exam/Review of Systems Vital Signs Vitals Vital Signs Date Temp Pulse Resp B/P (MAP) Pulse Ox O2 O2 Flow FiO2 Time Delivery Rate 01/02/19 77 23 130/39 99 08:15 (69) 01/02/19 97.8 Nasal 2.0 08:00 Cannula 01/01/19 23:26 Intake and Output 01/01/19 01/01/19 01/02/19 1515:00 23:00 07:00 IntakeIntake Total 715 ml 431.5 ml 54.0 ml OutputOutput Total 350 ml 295 ml 275 ml BalanceBalance 365 ml 136.5 ml -221.0 ml Exam Constitutional: alert, well developed; No distress Psych: nl mood/affect Head: normocephalic, atraumatic Eyes: EOMI, nl lids, nl sclera ENMT: nl external ears & nose Neck: supple; No jvd, No bruits Respiratory: clear to auscultation (anteriorly), normal air movement Cardiovascular: regular rate and rhythm, murmurs/extra sounds (3/6 systolic, soft diastolic); No edema Gastrointestinal: soft, nl liver, spleen, non-tender Musculoskeletal: nl extremities to inspection Extremities: No edema Skin: nl turgor Labs Result Diagram: 01/01/192 01/01/19 043 Results 24hrs Laboratory Tests Test 01/01/19 09:06 01/01/19 12:10 01/01/19 18:05 01/01/19 21:28 Bedside Glucose 108 117 125 Troponin I 4.230 *H Test 01/01/19 21:32 01/02/19 00:27 01/02/19 04:20 01/02/19 05:13 Bedside Glucose 137 122 115 Troponin I 3.990 *H Test 01/02/19 08:32 Bedside Glucose 111 Medications Medications Current Medications IV Flush (NS 3 ml) 3 ml PER PROTOCOL IV ; Start 12/28/18 at 04:30 Ondansetron HCl (Zofran Inj) 4 mg Q6H PRN IV NAUSEA/VOMITING Last administered on 12/29/18at 12:30; Admin Dose 4 MG; Start 12/28/18 at 04:30 Aspirin (Aspirin) 81 mg DAILY PO Last administered on 01/02/19at 08:31; Admin Dose 81 MG; Start 12/28/18 at 09:00 Nitroglycerin (Nitroglycerin (Sl Tab) 0.4 Mg) 1 tab Q5M PRN SL .CHEST PAIN Last administered on 01/01/19at 20:40; Admin Dose 1 TAB; Start 12/28/18 at 04:30 Diagnostic Test (Pha) (Accu-Chek) 1 ea 02 XX Last administered on 12/31/18at 01:01; Admin Dose 1 EA; Start 12/29/18 at 02:00 Insulin Aspart (Novolog Insulin Pen) NOVOLOG *MODERATE* ALGORI... Q4 SC Last administered on 12/31/18at 20:51; Admin Dose 2 UNIT; Start 12/28/18 at 05:00 Miscellaneous Information 1 ea NOTE XX ; Start 12/28/18 at 05:00 Glucose (Glutose) 15 gm Q15M PRN PO DECREASED GLUCOSE; Start 12/28/18 at 05:00 Glucose (Glutose) 22.5 gm Q15M PRN PO DECREASED GLUCOSE; Start 12/28/18 at 05:00 Dextrose (D50w Syringe) 25 ml Q15M PRN IV DECREASED GLUCOSE; Start 12/28/18 at 05:00 Dextrose (D50w Syringe) 50 ml Q15M PRN IV DECREASED GLUCOSE; Start 12/28/18 at 05:00 Glucagon (Glucagen) 1 mg Q15M PRN IM DECREASED GLUCOSE; Start 12/28/18 at 05:00 Glucose (Glutose) 15 gm Q15M PRN BUCCAL DECREASED GLUCOSE; Start 12/28/18 at 05:00 Atorvastatin Calcium (Lipitor) 80 mg HS PO Last administered on 01/01/19at 21:33; Admin Dose 80 MG; Start 12/29/18 at 21:00 Piperacillin Sod/ Tazobactam Sod 50 ml @ 100 mls/hr Q6 IVPB Last administered on 01/02/19at 05:19; Admin Dose 100 MLS/HR; Start 12/28/18 at 18:00 Phenol (Cepastat Lozenge) 1 lozenge Q1H PRN MT COUGH Last administered on 12/30/18at 19:50; Admin Dose 1 LOZENGE; Start 12/28/18 at 17:30 Vancomycin HCl (Vanco Iv Per Pharmacy) VANCOMYCIN PER PHARMACY PER PROTOCOL XX ; Start 12/29/18 at 05:30 Escitalopram Oxalate (Lexapro) 10 mg DAILY PO Last administered on 01/02/19at 08:31; Admin Dose 10 MG; Start 12/29/18 at 09:30 Risedronate (Actonel) 35 mg Tu@AC BREAKFAST PO ; Start 12/30/18 at 07:00 Mirtazapine (Remeron) 15 mg HS PO Last administered on 01/01/19at 21:33; Admin Dose 15 MG; Start 12/29/18 at 21:00 Pantoprazole (Protonix Tab) 40 mg DAILY@06 PO Last administered on 01/02/19at 05:19; Admin Dose 40 MG; Start 12/30/18 at 06:00 Docusate Sodium (Colace) 100 mg BID PO Last administered on 01/02/19at 08:31; Admin Dose 100 MG; Start 12/29/18 at 18:30 Nitroglycerin/ Dextrose 250 ml @ 1.5 mls/hr TITRATE IV Last administered on 01/01/19at 00:19; Admin Dose 1.5 MLS/HR; Start 12/31/18 at 23:00 Furosemide (Lasix) 40 mg BID DIURETICS IV Last administered on 01/02/19at 05:19; Admin Dose 40 MG; Start 01/01/19 at 18:00 Vancomycin HCl 250 ml @ 125 mls/hr Q48H IVPB ; Start 01/03/19 at 06:00 Carvedilol (Coreg) 12.5 mg BID PO ; Start 01/02/19 at 09:00; Status UNV Clopidogrel Bisulfate (plaVIX) 300 mg ONCE ONCE PO ; Start 01/02/19 at 09:00; Stop 01/02/19 at 09:01; Status UNV Clopidogrel Bisulfate (plaVIX) 75 mg DAILY PO ; Start 01/03/19 at 09:00; Status UNV Isosorbide Mononitrate (Imdur) 30 mg DAILY PO ; Start 01/02/19 at 09:00; Status UNV RODRIGUEZ GARZA January 02, 2019 08:50
[2019-01-02] MEDS ORDERED: CLOPIDOGREL 75 MG TAB PO ONE (09:00)
[2019-01-02] MEDS: ISOSORBIDE MONONITRATE(SR)30 MG TAB PO SCH (09:17)
--- NOTE | 2019-01-02 10:06 | PN ---
Date/Time of Note Date/Time of Note DATE: 01/02/19 TIME: 10:04 Assessment/Plan VTE Prophylaxis Risk score (from Nsg)>0 risk: 8 SCD applied (from Nsg): Yes Pharmacological prophylaxis: other Lines/Catheters IV Catheter Type (from Nrsg): Peripheral IV Urinary Cath still in place: Yes Reason Cath still needed: urinary retention Assessment/Plan Hospital Course S: Patient still in the intensive care unit, had to be started on nitro drip low rate overnight secondary to some chest pain, but vital signs are stable. Seen by cardiology team this morning. O:Vs - see below PE: Gen: Frail appearing elderly woman lying in bed, no acute distress HEENT: PERRL, no icterus, moist mucous membranes, clear oropharynx Neck: Supple Card: Regular rate and rhythm, no murmurs appreciated Pulm: Distant breath sounds bilaterally Abd: Soft, nontender, nondistended. Ext: No LE edema B/L Date/Time of Note Date/Time of Note DATE: 12/28/18 TIME: 11:48 Operative Report Procedure Date: December 28, 2018 Preoperative Diagnosis STEMI, new LBBB Postoperative Diagnosis Sever 2 vessel CAD, LAD and RCA, LAD is culprit with francine 2 flow, and cardiomyopathy with LVEF 35% Operation/Procedure Performed Coronary angiography Left heart catheterization Left ventriculography Moderate sedation with versed and fentanyl Assessment/Plan: 83 yo [place]anian-speaking woman with history of dementia, hypertension, dyslipidemia, severe MR and aortic stenosis, arrhythmia who presents with ACS and multi-vessel coronary artery disease. #Acute TN- STEMI with LBBB - patient had cardiac cath on 12/28, found with: Severe 2 vessel CAD, LAD and RCA, LAD is culprit with francine 2 flow, and cardiomyopathy with LVEF 35%. Again patient also with severe aortic regurgitation and at least moderate mitral regurgitation. - Continue, Lipitor, beta-goevanny, statin, and now Plavix and Imdur - Per cardiology team Dr. Alvarenga and CTS Dr. Freire, patient ideally would need 2 vessel CABG (GRAF-LAD and SVG-RCA) with aortic valve repair/replacement and possibly mitral valve repair - pending transfer to [facility] for high risk PCI to LAD and RCA, with possible staged TAVR for severe AI. Per cardiology team however, if unable to facilitate transfer, they stated they could perform PCI on the patient, and would plan to do this on Saturday if she remains at this hospital. #Acute CHF exacerbation -slowly improving - likely due to acute ischemic CAD/STEMI -status post nitro gtt - Continue NIPPV as needed for pulmonary edema. - Cautious loop diuresis, monitor BUN/creatinine levels #Bacteremia: 2 out of 2 bottles positive for coagulase-negative staph -Continue broad-spectrum antibiotics #WILLIAM: Creatinine slightly more increased today at 2.48. Patient has adequate urine output. Started on IV Lasix twice daily yesterday. -Monitor, follow-up recommendations from renal consult -We will cut back to Lasix once a day today, monitor urine output -No CRISTINO or ARB at this time GI: PPI Critical care time spent in patient care today equals 45 minutes. Result Diagram: 01/01/19 0432 01/02/19 0419 Results 24hrs Laboratory Tests Test 01/01/19 12:10 01/01/19 18:05 01/01/19 21:28 01/01/19 21:32 Bedside Glucose 117 125 137 Troponin I 4.230 *H Test 01/02/19 00:27 01/02/19 04:19 01/02/19 04:20 01/02/19 05:13 Bedside Glucose 122 115 Sodium Level 146 H Potassium Level 4.0 Chloride Level 109 Carbon Dioxide Level 27 Anion Gap 10 Blood Urea Nitrogen 61 H Creatinine 2.48 H Est Glomerular Filtrat Rate mL/min Glucose Level 96 Calcium Level 8.6 Troponin I 3.990 *H Test 01/02/19 08:32 Bedside Glucose 111 Exam/Review of Systems Exam Vitals Vital Signs Date Temp Pulse Resp B/P (MAP) Pulse Ox O2 O2 Flow FiO2 Time Delivery Rate 01/02/19 77 23 130/39 99 08:15 (69) 01/02/19 97.8 Nasal 2.0 08:00 Cannula 01/01/19 23:26 Intake and Output 01/01/19 01/01/19 01/02/19 1515:00 23:00 07:00 IntakeIntake Total 715 ml 431.5 ml 54.0 ml OutputOutput Total 350 ml 295 ml 275 ml BalanceBalance 365 ml 136.5 ml -221.0 ml Results Results 24hrs Laboratory Tests Test 01/01/19 12:10 01/01/19 18:05 01/01/19 21:28 01/01/19 21:32 Bedside Glucose 117 125 137 Troponin I 4.230 *H Test 01/02/19 00:27 01/02/19 04:19 01/02/19 04:20 01/02/19 05:13 Bedside Glucose 122 115 Sodium Level 146 H Potassium Level 4.0 Chloride Level 109 Carbon Dioxide Level 27 Anion Gap 10 Blood Urea Nitrogen 61 H Creatinine 2.48 H Est Glomerular Filtrat Rate mL/min Glucose Level 96 Calcium Level 8.6 Troponin I 3.990 *H Test 01/02/19 08:32 Bedside Glucose 111 Medications Medication Current Medications IV Flush (NS 3 ml) 3 ml PER PROTOCOL IV ; Start 12/28/18 at 04:30 Ondansetron HCl (Zofran Inj) 4 mg Q6H PRN IV NAUSEA/VOMITING Last administered on 12/29/18at 12:30; Admin Dose 4 MG; Start 12/28/18 at 04:30 Aspirin (Aspirin) 81 mg DAILY PO Last administered on 01/02/19at 08:31; Admin Dose 81 MG; Start 12/28/18 at 09:00 Nitroglycerin (Nitroglycerin (Sl Tab) 0.4 Mg) 1 tab Q5M PRN SL .CHEST PAIN Last administered on 01/01/19at 20:40; Admin Dose 1 TAB; Start 12/28/18 at 04:30 Diagnostic Test (Pha) (Accu-Chek) 1 ea 02 XX Last administered on 12/31/18at 01:01; Admin Dose 1 EA; Start 12/29/18 at 02:00 Insulin Aspart (Novolog Insulin Pen) NOVOLOG *MODERATE* ALGORI... Q4 SC Last administered on 12/31/18at 20:51; Admin Dose 2 UNIT; Start 12/28/18 at 05:00 Miscellaneous Information 1 ea NOTE XX ; Start 12/28/18 at 05:00 Glucose (Glutose) 15 gm Q15M PRN PO DECREASED GLUCOSE; Start 12/28/18 at 05:00 Glucose (Glutose) 22.5 gm Q15M PRN PO DECREASED GLUCOSE; Start 12/28/18 at 05:00 Dextrose (D50w Syringe) 25 ml Q15M PRN IV DECREASED GLUCOSE; Start 12/28/18 at 05:00 Dextrose (D50w Syringe) 50 ml Q15M PRN IV DECREASED GLUCOSE; Start 12/28/18 at 05:00 Glucagon (Glucagen) 1 mg Q15M PRN IM DECREASED GLUCOSE; Start 12/28/18 at 05:00 Glucose (Glutose) 15 gm Q15M PRN BUCCAL DECREASED GLUCOSE; Start 12/28/18 at 05:00 Atorvastatin Calcium (Lipitor) 80 mg HS PO Last administered on 01/01/19at 21:33; Admin Dose 80 MG; Start 12/29/18 at 21:00 Piperacillin Sod/ Tazobactam Sod 50 ml @ 100 mls/hr Q6 IVPB Last administered on 01/02/19 05:19; Admin Dose 100 MLS/HR; Start 12/28/18 at 18:00 Phenol (Cepastat Lozenge) 1 lozenge Q1H PRN MT COUGH Last administered on 12/30/18at 19:50; Admin Dose 1 LOZENGE; Start 12/28/18 at 17:30 Vancomycin HCl (Vanco Iv Per Pharmacy) VANCOMYCIN PER PHARMACY PER PROTOCOL XX ; Start 12/29/18 at 05:30 Escitalopram Oxalate (Lexapro) 10 mg DAILY PO Last administered on 01/02/19at 08:31; Admin Dose 10 MG; Start 12/29/18 at 09:30 Risedronate (Actonel) 35 mg Tu@AC BREAKFAST PO ; Start 12/30/18 at 07:00 Mirtazapine (Remeron) 15 mg HS PO Last administered on 01/01/19 21:33; Admin Dose 15 MG; Start 12/29/18 at 21:00 Pantoprazole (Protonix Tab) 40 mg DAILY@06 PO Last administered on 01/02/19 05:19; Admin Dose 40 MG; Start 12/30/18 at 06:00 Docusate Sodium (Colace) 100 mg BID PO Last administered on 01/02/19 08:31; Admin Dose 100 MG; Start 12/29/18 at 18:30 Nitroglycerin/ Dextrose 250 ml @ 1.5 mls/hr TITRATE IV Last administered on 01/01/19at 00:19; Admin Dose 1.5 MLS/HR; Start 12/31/18 at 23:00 Furosemide (Lasix) 40 mg BID DIURETICS IV Last administered on 01/02/19 05:19; Admin Dose 40 MG; Start 01/01/19 at 18:00 Vancomycin HCl 250 ml @ 125 mls/hr Q48H IVPB ; Start 01/03/19 at 06:00 Carvedilol (Coreg) 12.5 mg BID PO Last administered on 01/02/19at 09:17; Admin Dose 12.5 MG; Start 01/02/19 at 09:00 Clopidogrel Bisulfate (plaVIX) 75 mg DAILY PO ; Start 01/03/19 at 09:00 Isosorbide Mononitrate (Imdur) 30 mg DAILY PO Last administered on 01/02/19at 09:17; Admin Dose 30 MG; Start 01/02/19 at 09:00 KRYSTAL BERNARD January 02, 2019 10:06
--- NOTE | 2019-01-02 12:53 | CONS ---
Assessment/Plan Assessment/Plan Assessment/Plan (Daily) 1. Acute kidney injury on CKD III 2/2 Hemodynamics from CHF + NSTEMI 2. Hypokalemia 3. Hypernatremia 4. acute NSTEMI s/p LHC showed multivessel obstructive CAD 5. CAD mulitivessels obstructive Plan: IV lasix 40mg IV daily IV abx zosyn for bactremia, renally dose all abx and monitor electrolytes s/p LOUIE on 12/30/18 showed severe AI and no vegetations, Cr bumped to 2.0 - As per Mechanic Driver discussion with Primary caridology pt has chronic AI and CKD- After discussion pt deemed high risk for CABG so recommended for transfer to [facility] for staged complex PCI of LAD and RCA, and possible staged TAVR- family in agreement for transfer- awaiting bed availability will continue to follow up Consultation Date/Type/Reason Admit Date/Time December 28, 2018 at 03:23 Initial Consult Date 12/28/18 Type of Consult NEPHROLOGY Requesting Provider: KRYSTAL BERNARD Date/Time of Note DATE: 01/02/19 TIME: 12:53 24 HR Interval Summary Free Text/Dictation BUN/Cr 61/2.48, awaiting transfer to [facility] Exam/Review of Systems Exam Vitals Vital Signs Date Temp Pulse Resp B/P (MAP) Pulse Ox O2 O2 Flow FiO2 Time Delivery Rate 01/02/19 73 30 122/41 96 12:45 (68) 01/02/19 98.1 Nasal 2.0 12:00 Cannula 01/01/19 23:26 Intake and Output 01/01/19 01/01/19 01/02/19 1515:00 23:00 07:00 IntakeIntake Total 715 ml 431.5 ml 54.0 ml OutputOutput Total 350 ml 295 ml 275 ml BalanceBalance 365 ml 136.5 ml -221.0 ml Exam Gen: Frail , no acute distress Eyes: PERRL, no icterus HEENT: Moist mucous membranes, clear oropharynx Neck: + JVD ,, no lymphadenopathy Card: Regular rate and rhythm, no murmurs appreciated Pulm: Rales throughout. Abd: Soft, nontender, nondistended. Ext: No cyanosis/clubbing/edema. Results Result Diagram: 01/01/19 0432 01/02/19 0419 Results 24hrs Laboratory Tests Test 01/01/19 18:05 01/01/19 21:28 01/01/19 21:32 01/02/19 00:27 Bedside Glucose 125 137 122 Troponin I 4.230 *H Test 01/02/19 04:19 01/02/19 04:20 01/02/19 05:13 01/02/19 08:32 Sodium Level 146 H Potassium Level 4.0 Chloride Level 109 Carbon Dioxide Level 27 Anion Gap 10 Blood Urea Nitrogen 61 H Creatinine 2.48 H Est Glomerular Filtrat Rate mL/min Glucose Level 96 Calcium Level 8.6 Troponin I 3.990 *H Bedside Glucose 115 111 Medications Medication Current Medications IV Flush (NS 3 ml) 3 ml PER PROTOCOL IV ; Start 12/28/18 at 04:30 Ondansetron HCl (Zofran Inj) 4 mg Q6H PRN IV NAUSEA/VOMITING Last administered on 12/29/18at 12:30; Admin Dose 4 MG; Start 12/28/18 at 04:30 Aspirin (Aspirin) 81 mg DAILY PO Last administered on 01/02/19at 08:31; Admin Dose 81 MG; Start 12/28/18 at 09:00 Nitroglycerin (Nitroglycerin (Sl Tab) 0.4 Mg) 1 tab Q5M PRN SL .CHEST PAIN Last administered on 01/01/19at 20:40; Admin Dose 1 TAB; Start 12/28/18 at 04:30 Diagnostic Test (Pha) (Accu-Chek) 1 ea 02 XX Last administered on 12/31/18at 01:01; Admin Dose 1 EA; Start 12/29/18 at 02:00 Insulin Aspart (Novolog Insulin Pen) NOVOLOG *MODERATE* ALGORI... Q4 SC Last administered on 12/31/18at 20:51; Admin Dose 2 UNIT; Start 12/28/18 at 05:00 Miscellaneous Information 1 ea NOTE XX ; Start 12/28/18 at 05:00 Glucose (Glutose) 15 gm Q15M PRN PO DECREASED GLUCOSE; Start 12/28/18 at 05:00 Glucose (Glutose) 22.5 gm Q15M PRN PO DECREASED GLUCOSE; Start 12/28/18 at 05:00 Dextrose (D50w Syringe) 25 ml Q15M PRN IV DECREASED GLUCOSE; Start 12/28/18 at 05:00 Dextrose (D50w Syringe) 50 ml Q15M PRN IV DECREASED GLUCOSE; Start 12/28/18 at 05:00 Glucagon (Glucagen) 1 mg Q15M PRN IM DECREASED GLUCOSE; Start 12/28/18 at 05:00 Glucose (Glutose) 15 gm Q15M PRN BUCCAL DECREASED GLUCOSE; Start 12/28/18 at 05:00 Atorvastatin Calcium (Lipitor) 80 mg HS PO Last administered on 01/01/19 21:33; Admin Dose 80 MG; Start 12/29/18 at 21:00 Piperacillin Sod/ Tazobactam Sod 50 ml @ 100 mls/hr Q6 IVPB Last administered on 01/02/19 11:26; Admin Dose 100 MLS/HR; Start 12/28/18 at 18:00 Phenol (Cepastat Lozenge) 1 lozenge Q1H PRN MT COUGH Last administered on 12/30/18 19:50; Admin Dose 1 LOZENGE; Start 12/28/18 at 17:30 Vancomycin HCl (Vanco Iv Per Pharmacy) VANCOMYCIN PER PHARMACY PER PROTOCOL XX ; Start 12/29/18 at 05:30 Escitalopram Oxalate (Lexapro) 10 mg DAILY PO Last administered on 01/02/19 08:31; Admin Dose 10 MG; Start 12/29/18 at 09:30 Risedronate (Actonel) 35 mg Tu@AC BREAKFAST PO ; Start 12/30/18 at 07:00 Mirtazapine (Remeron) 15 mg HS PO Last administered on 01/01/19 21:33; Admin Dose 15 MG; Start 12/29/18 at 21:00 Pantoprazole (Protonix Tab) 40 mg DAILY@06 PO Last administered on 01/02/19 05:19; Admin Dose 40 MG; Start 12/30/18 at 06:00 Docusate Sodium (Colace) 100 mg BID PO Last administered on 01/02/19 08:31; Admin Dose 100 MG; Start 12/29/18 at 18:30 Nitroglycerin/ Dextrose 250 ml @ 1.5 mls/hr TITRATE IV Last administered on 01/01/19at 00:19; Admin Dose 1.5 MLS/HR; Start 5/8/19 at 23:00 Vancomycin HCl 250 ml @ 125 mls/hr Q48H IVPB ; Start 01/03/19 at 06:00 Carvedilol (Coreg) 12.5 mg BID PO Last administered on 01/02/19at 09:17; Admin Dose 12.5 MG; Start 01/02/19 at 09:00 Clopidogrel Bisulfate (plaVIX) 75 mg DAILY PO ; Start 01/03/19 at 09:00 Isosorbide Mononitrate (Imdur) 30 mg DAILY PO Last administered on 01/02/19at 09:17; Admin Dose 30 MG; Start 01/02/19 at 09:00 Furosemide (Lasix) 40 mg DAILY IV ; Start 01/03/19 at 09:00 PATTI CALLEJAS MD January 02, 2019 12:53
--- NOTE | 2019-01-02 13:44 | RADRPT ---
Vent Rate: 78 bpm RR Interval: 0 msec DE Interval: 170 msec QRS Duration: 114 msec QT Interval: 410 msec QTC Interval: 467 msec P-R-T [place]aly: 94 - 67 - 88 degrees Normal sinus rhythm Incomplete left bundle branch block Left ventricular hypertrophy with repolarization abnormality Abnormal ECG Electronically Signed By: Mihir Mosher
--- NOTE | 2019-01-02 17:50 | DS ---
Date/Time of Note Date/Time of Note DATE: 01/02/19 TIME: 17:47 Discharge Summary Admission/Discharge Info Admit Date/Time December 28, 2018 at 03:23 Discharge Date/Time Discharge Diagnosis #Acute [place]- possible STEMI with LBBB - patient had cardiac cath on 12/28, found w ith: Severe 2 vessel CAD, LAD and RCA, LAD is culprit with francine 2 flow, and cardiomyopathy with LVEF 35%. Again patient also with severe aortic regurgitation and at least moderate mitral regurgitation. #Acute CHF exacerbation -slowly improving - likely due to acute ischemic CAD/STEMI -status post nitro gtt earlier this admission, now off this. #Bacteremia: 2 out of 2 bottles positive for coagulase-negative staph. Patient also being treated for likely upper respiratory infection # Acute kidney injury on CKD III 2/2 Hemodynamics from CHF + NSTEMI # dementia # hypertension # dyslipidemia #History of arrhythmia Patient Condition: Serious Procedures Date/Time of Note Date/Time of Note DATE: 12/28/18 TIME: 11:48 Operative Report Procedure Date: December 28, 2018 Preoperative Diagnosis STEMI, new LBBB Postoperative Diagnosis Sever 2 vessel CAD, LAD and RCA, LAD is culprit with francine 2 flow, and cardiomyopathy with LVEF 35% Operation/Procedure Performed Coronary angiography Left heart catheterization Left ventriculography Moderate sedation with versed and fentanyl Hx of Present Illness 83-year-old female with reported history of dementia, hypertension, dyslipidemia, severe MR and aortic stenosis, arrhythmia who was brought to the ER for chest pain and shortness of breath. Patient is not able to provide history. In the ER, family was at the bedside and provided some information. Patient has been placed on a BiPAP for shortness of breath. Initial ABG shows pH of 7.27, PCO2 53, PO2 107, bicarb 24, on 100% FiO2 while on BiPAP. Chest x- ray shows mild pulmonary edema. Her first troponin was found to be elevated at 0.7, the second just resulted and is even higher at 3.4. Initial EKG shows LBBB, repeat EKG without LBBB. Patient did remove her BIPAP to go to rest room and hospitalist noticed that she was short of breath especially when walking. ER physician reached out to patient's foreign exchange services manager, Dr. Arabella Patel [phone], who reviewed the patient's records and stated that her last EKG was from September 2017 and the patient did not have a left bundle branch block at that time and felt that this left bundle branch block was new. Echo was last done in March 2018 showing an EF of 60%, severe MR, and aortic stenosis. Family has reportedly opted for no surgery given the patient's age and advanced dementia. Hospital Course Patient was initially admitted to telemetry floor, however after admission up to [facility], rapid response was called for worsening pressure-like chest pain and dyspnea. The patient had coarse breath sounds and pulmonary edema on CXR; and was saturating low 90s on oxygen facemask so was placed on BiPAP. Also given sublingual nitro and IV lasix with relief of dyspnea and chest pain.EKG was done at that time showing complete LBBB. Code STEMI was also called at that time after elevation of troponin was found and patient was seen by cardiology team and cardiothoracic surgery team. Patient was taken to cardiac cath. LV gram showed 30% EF and coronary angio showed 90% disease of the LAD and disease along the RCA. Patient was placed in the ICU and started on heparin drip and also required nitro glycerin drip at one point as well. Patient also required BiPAP for pulmonary edema which improved. Patient was evaluated for the need for CABG, however she was also treated for coagulase negative staph bacteremia 2 out of 2 bottles and elevated white blood cell count secondary to this, placed on antibiotics for that. White blood cell count improved as it was trending down and vital signs are stable overall. Patient also underwent LOUIE that did not show any apparent vegetations. Patient was transferred out of the intensive care unit and is presently on telemetry floor. Patient was continued on cardiac medications. Engineering Intern here called patient's other foreign exchange services manager Dr. Archuleta at [facility], and after review of patient comorbidities including dementia and CKD, patient will transfer to [facility] for high risk PCI to LAD and RCA, with possible staged TAVR for severe AI. On the evening of December 31, 2018, patient had some worsening shortness of breath and had to be transferred back to the intensive care unit where she is presently now. Plan is for transfer to [facility] later today. See printed medicine reconciliation sheet for full list of transfer medications Home Meds Reported Medications Atenolol* (Atenolol*) 25 Mg Tablet, 25 MG PO DAILY, #30 TAB 12/29/18 Icosapent Ethyl (VASCEPA) 1 Gm Capsule, 2 GM PO BID, CAP 12/29/18 Linagliptin (TRADJENTA) 5 Mg Tablet, 5 MG PO DAILY, TAB 12/29/18 Risedronate* (Actonel*) 35 Mg Tablet, 35 MG PO Q7D, #4 TAB 12/29/18 Dexlansoprazole (Dexilant) 60 Mg James., 60 MG PO DAILY, #30 CAP 12/29/18 Fenofibrate Nanocrystallized* (Fenofibrate*) 145 Mg Tablet, 145 MG PO DAILY, TAB 12/29/18 Rosuvastatin Calcium* (Crestor*) 40 Mg Tablet, 40 MG PO QHS, #30 TAB 12/29/18 Escitalopram Oxalate* (Lexapro*) 10 Mg Tablet, 10 MG PO DAILY, #30 TAB 12/29/18 Mirtazapine* (Mirtazapine*) 15 Mg Tablet, 15 MG PO HS, TAB 12/29/18 Tramadol Hcl* (Ultram*) 50 Mg Tablet, 50 MG PO Q6H PRN for PAIN, TAB 12/29/18 Furosemide* (Furosemide*) 40 Mg Tablet, 40 MG PO DAILY, TAB 12/29/18 Allopurinol* (Allopurinol*) 300 Mg Tablet, 300 MG PO DAILY, TAB 12/29/18 Folic Acid* (Folic Acid*) 1 Mg Tablet, 1 MG PO DAILY, TAB 12/29/18 Ergocalciferol (Vitamin D2) (VITAMIN D2) 50,000 Unit Capsule, 30559 UNIT PO ONCE A WEEK, CAP 12/29/18 Ferrous Sulfate* (Ferrous Sulfate*) 325 Mg Tabec, 325 MG PO TID, TAB 12/29/18 Hydralazine Hcl* (Apresoline*) 50 Mg Tab, 50 MG PO TID, #90 TAB 12/29/18 Primary Care Provider Care Physician No Primary Time spent on discharge: > 30 minutes Pending Labs Laboratory Tests Test 01/01/19 18:05 01/01/19 21:28 01/01/19 21:32 01/02/19 00:27 Bedside 125 137 122 Glucose mg/dL (70-220) mg/dL (70-220) mg/dL (70-220) Troponin I 4.230 ng/ml (0.000-0 .120) Test 01/02/19 04:19 01/02/19 04:20 01/02/19 05:13 01/02/19 08:32 Sodium Level 146 mmol/L (135-144 ) Potassium 4.0 Level mmol/L (3.5-5.1 ) Chloride Level 109 mmol/L (97-110) Carbon Dioxide 27 Level mmol/L (21-31) Anion Gap 10 (5-13) Blood Urea 61 mg/dl (7-20) Nitrogen Creatinine 2.48 mg/dl (0.44-1.0 0) Est Glomerular mL/min (>60) Filtrat Rate mL/min Glucose Level 96 mg/dl (70-220) Calcium Level 8.6 mg/dl (8.4-10.2 ) Troponin I 3.990 ng/ml (0.000-0 .120) Bedside 115 111 Glucose mg/dL (70-220) mg/dL (70-220) Test 01/02/19 12:56 01/02/19 17:07 Bedside 98 140 Glucose mg/dL (70-220) mg/dL (70-220) KRYSTAL BERNARD January 02, 2019 17:50
[2019-01-02] MEDS: ATORVASTATIN 80 MG TAB PO SCH (21:24)
[2019-01-02] MEDS: MIRTAZAPINE 15 MG TAB PO SCH (21:24)
[2019-01-03] VITALS (23 sets, daily range): BP systolic 92–133; BP diastolic 36–85; PULSE 66–90; RESP 19–36
[2019-01-03] MEDS: PIPER-TAZO 2.25 GM (PMX) 50 ML IVPB SCH ×4 (00:26→21:20)
[2019-01-03] MEDS: ACCU-CHEK XX SCH (02:00)
[2019-01-03] MEDS: PANTOPRAZOLE (EC) 40 MG TAB PO SCH (05:30)
[2019-01-03] MEDS: VANCOMYCIN 1 GM 250 ML IVPB SCH (06:05)
[2019-01-03] MEDS: INSULIN ASPART [NOVOLOG] 3 ML PEN SC SCH ×4 (07:35→21:00)
[2019-01-03] MEDS: NITROGLYCERIN (SL) 0.4 MG TAB SL PRN (08:02)
[2019-01-03] MEDS: ONDANSETRON 4 MG INJ IV PRN (08:02)
[2019-01-03] MEDS: ASPIRIN 81 MG TAB PO SCH (08:12)
[2019-01-03] MEDS: ISOSORBIDE MONONITRATE(SR)30 MG TAB PO SCH (08:13)
[2019-01-03] MEDS: DOCUSATE SODIUM 100 MG CAP PO SCH ×2 (08:13→21:20)
[2019-01-03] MEDS: ESCITALOPRAM 10 MG TAB PO SCH (08:13)
[2019-01-03] MEDS: CLOPIDOGREL 75 MG TAB PO SCH (08:18)
[2019-01-03] MEDS: FUROSEMIDE 40 MG INJ IV SCH (08:18)
--- NOTE | 2019-01-03 09:19 | PN ---
Date/Time of Note Date/Time of Note DATE: 01/03/19 TIME: 09:17 Assessment/Plan VTE Prophylaxis Risk score (from Nsg)>0 risk: 8 SCD applied (from Nsg): Yes Pharmacological prophylaxis: other Lines/Catheters IV Catheter Type (from Nrsg): Saline Lock Urinary Cath still in place: Yes Reason Cath still needed: urinary retention Assessment/Plan Hospital Course S: Patient has been off nitro drip since yesterday. Did have some chest pain earlier this morning and received sublingual nitroglycerin as well. Still waiting transfer to [facility]. O:Vs - see below PE: Gen: Frail appearing elderly woman lying in bed, no acute distress HEENT: PERRL, no icterus, moist mucous membranes, clear oropharynx Neck: Supple Card: Regular rate and rhythm, no murmurs appreciated Pulm: Distant breath sounds bilaterally Abd: Soft, nontender, nondistended. Ext: No LE edema B/L Date/Time of Note Date/Time of Note DATE: 12/28/18 TIME: 11:48 Operative Report Procedure Date: December 28, 2018 Preoperative Diagnosis STEMI, new LBBB Postoperative Diagnosis Sever 2 vessel CAD, LAD and RCA, LAD is culprit with francine 2 flow, and cardiomyopathy with LVEF 35% Operation/Procedure Performed Coronary angiography Left heart catheterization Left ventriculography Moderate sedation with versed and fentanyl Assessment/Plan: 83 yo [place]ian-speaking woman with history of dementia, hypertension, dyslipidemia, severe MR and aortic stenosis, arrhythmia who presents with ACS and multi-vessel coronary artery disease. #Acute CA- STEMI with LBBB - patient had cardiac cath on 12/28, found with: Severe 2 vessel CAD, LAD and RCA, LAD is culprit with francine 2 flow, and cardiomyopathy with LVEF 35%. Again patient also with severe aortic regurgitation and at least moderate mitral regurgitation. - Continue, Lipitor, beta-geovanny, statin, Plavix and Imdur - Per cardiology team Dr. Alvarenga and CTS Dr. Freire, patient ideally would need 2 vessel CABG (GRAF-LAD and SVG-RCA) with aortic valve repair/replacement and possibly mitral valve repair - pending transfer to [facility] for high risk PCI to LAD and RCA, with possible staged TAVR for severe AI. Per cardiology team however, if unable to facilitate transfer, they stated they could perform PCI on the patient, and would plan to do this on Saturday if she remains at this hospital. #Acute CHF exacerbation -slowly improving - likely due to acute ischemic CAD/STEMI -status post nitro gtt - Continue NIPPV as needed for pulmonary edema. - Cautious loop diuresis, monitor BUN/creatinine levels #Bacteremia: 2 out of 2 bottles positive for coagulase-negative staph -Continue broad-spectrum antibiotics #WILLIAM: Creatinine today 2.3. Patient has adequate urine output. -Monitor, follow-up recommendations from renal consult -For now continue IV Lasix once a day, monitor urine output and BUN/creatinine levels -No CRISTINO or ARB at this time GI: PPI Critical care time spent in patient care today equals 45 minutes. Result Diagram: 01/03/194 01/03/19423 Results 24hrs Laboratory Tests Test 01/02/19 12:56 01/02/19 17:07 01/02/19 21:27 01/03/19 04:24 Bedside Glucose 98 140 126 White Blood Count 9.7 Red Blood Count 2.69 L Hemoglobin 7.9 L Hematocrit 25.6 L Mean Corpuscular 95.2 Volume Mean Corpuscular 29.4 Hemoglobin Mean Corpuscular 30.9 L Hemoglobin Concent Red Cell 16.3 H Distribution Width Platelet Count 294 Mean Platelet Volume 10.1 Immature 0.600 H Granulocytes % Neutrophils % 75.7 Lymphocytes % 14.1 L Monocytes % 6.1 Eosinophils % 3.0 Basophils % 0.5 Nucleated Red Blood 0.0 Cells % Immature 0.060 H Granulocytes # Neutrophils # 7.3 Lymphocytes # 1.4 Monocytes # 0.6 Eosinophils # 0.3 Basophils # 0.1 Nucleated Red Blood 0.0 Cells # Sodium Level 144 Potassium Level 3.6 Chloride Level 109 Carbon Dioxide Level 27 Anion Gap 8 Blood Urea Nitrogen 60 H Creatinine 2.31 H Est Glomerular Filtrat Rate mL/min Glucose Level 103 Calcium Level 8.7 Phosphorus Level 3.6 Magnesium Level 2.6 H Test 01/03/19 08:09 Bedside Glucose 134 Exam/Review of Systems Exam Vitals Vital Signs Date Temp Pulse Resp B/P (MAP) Pulse Ox O2 O2 Flow FiO2 Time Delivery Rate 01/03/19 76 32 123/61 96 Nasal 2.0 05:00 (81) Cannula 01/03/19 98.4 04:00 01/01/19 23:26 Intake and Output 01/02/19 01/02/19 01/03/19 1515:00 23:00 07:00 IntakeIntake Total 151.0 ml 300 ml 400 ml OutputOutput Total 230 ml 320 ml 270 ml BalanceBalance -79.0 ml -20 ml 130 ml Results Results 24hrs Laboratory Tests Test 01/02/19 12:56 01/02/19 17:07 01/02/19 21:27 01/03/19 04:24 Bedside Glucose 98 140 126 White Blood Count 9.7 Red Blood Count 2.69 L Hemoglobin 7.9 L Hematocrit 25.6 L Mean Corpuscular 95.2 Volume Mean Corpuscular 29.4 Hemoglobin Mean Corpuscular 30.9 L Hemoglobin Concent Red Cell 16.3 H Distribution Width Platelet Count 294 Mean Platelet Volume 10.1 Immature 0.600 H Granulocytes % Neutrophils % 75.7 Lymphocytes % 14.1 L Monocytes % 6.1 Eosinophils % 3.0 Basophils % 0.5 Nucleated Red Blood 0.0 Cells % Immature 0.060 H Granulocytes # Neutrophils # 7.3 Lymphocytes # 1.4 Monocytes # 0.6 Eosinophils # 0.3 Basophils # 0.1 Nucleated Red Blood 0.0 Cells # Sodium Level 144 Potassium Level 3.6 Chloride Level 109 Carbon Dioxide Level 27 Anion Gap 8 Blood Urea Nitrogen 60 H Creatinine 2.31 H Est Glomerular Filtrat Rate mL/min Glucose Level 103 Calcium Level 8.7 Phosphorus Level 3.6 Magnesium Level 2.6 H Test 01/03/19 08:09 Bedside Glucose 134 Medications Medication Current Medications IV Flush (NS 3 ml) 3 ml PER PROTOCOL IV ; Start 12/28/18 at 04:30 Ondansetron HCl (Zofran Inj) 4 mg Q6H PRN IV NAUSEA/VOMITING Last administered on 01/03/19at 08:02; Admin Dose 4 MG; Start 12/28/18 at 04:30 Aspirin (Aspirin) 81 mg DAILY PO Last administered on 01/03/19at 08:12; Admin Dose 81 MG; Start 12/28/18 at 09:00 Nitroglycerin (Nitroglycerin (Sl Tab) 0.4 Mg) 1 tab Q5M PRN SL .CHEST PAIN Last administered on 01/03/19at 08:02; Admin Dose 1 TAB; Start 12/28/18 at 04:30 Diagnostic Test (Pha) (Accu-Chek) 1 ea 02 XX Last administered on 12/31/18at 01:01; Admin Dose 1 EA; Start 12/29/18 at 02:00 Miscellaneous Information 1 ea NOTE XX ; Start 12/28/18 at 05:00 Glucose (Glutose) 15 gm Q15M PRN PO DECREASED GLUCOSE; Start 12/28/18 at 05:00 Glucose (Glutose) 22.5 gm Q15M PRN PO DECREASED GLUCOSE; Start 12/28/18 at 05:00 Dextrose (D50w Syringe) 25 ml Q15M PRN IV DECREASED GLUCOSE; Start 12/28/18 at 05:00 Dextrose (D50w Syringe) 50 ml Q15M PRN IV DECREASED GLUCOSE; Start 12/28/18 at 05:00 Glucagon (Glucagen) 1 mg Q15M PRN IM DECREASED GLUCOSE; Start 12/28/18 at 05:00 Glucose (Glutose) 15 gm Q15M PRN BUCCAL DECREASED GLUCOSE; Start 12/28/18 at 05:00 Atorvastatin Calcium (Lipitor) 80 mg HS PO Last administered on 01/02/19at 21:24; Admin Dose 80 MG; Start 12/29/18 at 21:00 Piperacillin Sod/ Tazobactam Sod 50 ml @ 100 mls/hr Q6 IVPB Last administered on 01/03/19at 05:29; Admin Dose 100 MLS/HR; Start 12/28/18 at 18:00 Phenol (Cepastat Lozenge) 1 lozenge Q1H PRN MT COUGH Last administered on 12/30/18at 19:50; Admin Dose 1 LOZENGE; Start 12/28/18 at 17:30 Vancomycin HCl (Vanco Iv Per Pharmacy) VANCOMYCIN PER PHARMACY PER PROTOCOL XX ; Start 12/29/18 at 05:30 Escitalopram Oxalate (Lexapro) 10 mg DAILY PO Last administered on 01/03/19at 08:13; Admin Dose 10 MG; Start 12/29/18 at 09:30 Risedronate (Actonel) 35 mg Tu@AC BREAKFAST PO ; Start 12/30/18 at 07:00 Mirtazapine (Remeron) 15 mg HS PO Last administered on 01/02/19at 21:24; Admin Dose 15 MG; Start 12/29/18 at 21:00 Pantoprazole (Protonix Tab) 40 mg DAILY@06 PO Last administered on 01/03/19 05:30; Admin Dose 40 MG; Start 12/30/18 at 06:00 Docusate Sodium (Colace) 100 mg BID PO Last administered on 01/03/19 08:13; Admin Dose 100 MG; Start 12/29/18 at 18:30 Nitroglycerin/ Dextrose 250 ml @ 1.5 mls/hr TITRATE IV Last administered on 01/01/19 00:19; Admin Dose 1.5 MLS/HR; Start 12/31/18 at 23:00 Vancomycin HCl 250 ml @ 125 mls/hr Q48H IVPB Last administered on 01/03/19 06:05; Admin Dose 125 MLS/HR; Start 01/03/19 at 06:00 Carvedilol (Coreg) 12.5 mg BID PO Last administered on 01/03/19 08:13; Admin Dose 12.5 MG; Start 01/02/19 at 09:00 Clopidogrel Bisulfate (plaVIX) 75 mg DAILY PO Last administered on 01/03/19 08:18; Admin Dose 75 MG; Start 01/03/19 at 09:00 Isosorbide Mononitrate (Imdur) 30 mg DAILY PO Last administered on 01/03/19 08:13; Admin Dose 30 MG; Start 01/02/19 at 09:00 Furosemide (Lasix) 40 mg DAILY IV Last administered on 01/03/19 08:18; Admin Dose 40 MG; Start 01/03/19 at 09:00 Insulin Aspart (Novolog Insulin Pen) NOVOLOG *MODERATE* ALGORITHM WITH MEALS BEDTIME SC ; Start 01/02/19 at 21:00 KRYSTAL BERNARD January 03, 2019 09:19
--- NOTE | 2019-01-03 13:03 | CONS ---
Consult Date/Type/Reason Admit Date/Time December 28, 2018 at 03:23 Initial Consult Date 12/29/18 Type of Consultation: cv Requesting Provider: KRYSTAL BERNARD Date/Time of Note DATE: 01/03/19 TIME: 12:56 Subjective cardiology follow up note S; [place] Staff and . Patient with recurrent chest pain this morning. Improved with nitroglycerin to no bleeding is reported. pt is still in ICU O: General: no acute distress HEENT: NC/AT. pupils are equal. round. NECK: no stridor. CV: RRR. systolic/ diastolic murmur; no gallop or rubs. PULM: no wheezing or rhonchi. GI: SOFT, NT, ND, no rebound or guarding Extremity: trace B/L LE edema. no clubbing. neuro: awake and alert, OX3. Psych: calm and pleasant rectal: deferred CXR: 1. Interval decreased pulmonary edema. 2. Multifocal opacities most significantly involving the right upper lobe possi thiago reflecting superimposed pneumonia. 3. Small bilateral pleural effusions. 4. Stable cardiomegaly with aortic atherosclerosis. Objective Vitals Vital Signs Date Temp Pulse Resp B/P (MAP) Pulse Ox O2 O2 Flow FiO2 Time Delivery Rate 01/03/19 73 31 122/38 94 09:00 (66) 01/03/19 98.2 3.0 08:00 01/03/19 Nasal 07:00 Cannula 01/01/19 23:26 Intake and Output 01/02/19 01/02/19 01/03/19 1414:59 22:59 06:59 IntakeIntake Total 151.5 ml 300 ml 400 ml OutputOutput Total 225 ml 315 ml 300 ml BalanceBalance -73.5 ml -15 ml 100 ml Results/Medications Result Diagram: 01/03/19 0424 01/03/19 0424 Results 24 hrs Laboratory Tests Test 01/02/19 17:07 01/02/19 21:27 01/03/19 04:24 01/03/19 08:09 Bedside Glucose 140 126 134 White Blood Count 9.7 Red Blood Count 2.69 L Hemoglobin 7.9 L Hematocrit 25.6 L Mean Corpuscular 95.2 Volume Mean Corpuscular 29.4 Hemoglobin Mean Corpuscular 30.9 L Hemoglobin Concent Red Cell 16.3 H Distribution Width Platelet Count 294 Mean Platelet Volume 10.1 Immature 0.600 H Granulocytes % Neutrophils % 75.7 Lymphocytes % 14.1 L Monocytes % 6.1 Eosinophils % 3.0 Basophils % 0.5 Nucleated Red Blood 0.0 Cells % Immature 0.060 H Granulocytes # Neutrophils # 7.3 Lymphocytes # 1.4 Monocytes # 0.6 Eosinophils # 0.3 Basophils # 0.1 Nucleated Red Blood 0.0 Cells # Sodium Level 144 Potassium Level 3.6 Chloride Level 109 Carbon Dioxide Level 27 Anion Gap 8 Blood Urea Nitrogen 60 H Creatinine 2.31 H Est Glomerular Filtrat Rate mL/min Glucose Level 103 Calcium Level 8.7 Phosphorus Level 3.6 Magnesium Level 2.6 H Test 01/03/19 12:39 Bedside Glucose 150 Home Meds Reported Medications Atenolol* (Atenolol*) 25 Mg Tablet, 25 MG PO DAILY, #30 TAB 12/29/18 Icosapent Ethyl (VASCEPA) 1 Gm Capsule, 2 GM PO BID, CAP 12/29/18 Linagliptin (TRADJENTA) 5 Mg Tablet, 5 MG PO DAILY, TAB 12/29/18 Risedronate* (Actonel*) 35 Mg Tablet, 35 MG PO Q7D, #4 TAB 12/29/18 Dexlansoprazole (Dexilant) 60 Mg Cap., 60 MG PO DAILY, #30 CAP 12/29/18 Fenofibrate Nanocrystallized* (Fenofibrate*) 145 Mg Tablet, 145 MG PO DAILY, TAB 12/29/18 Rosuvastatin Calcium* (Crestor*) 40 Mg Tablet, 40 MG PO QHS, #30 TAB 12/29/18 Escitalopram Oxalate* (Lexapro*) 10 Mg Tablet, 10 MG PO DAILY, #30 TAB 12/29/18 Mirtazapine* (Mirtazapine*) 15 Mg Tablet, 15 MG PO HS, TAB 12/29/18 Tramadol Hcl* (Ultram*) 50 Mg Tablet, 50 MG PO Q6H PRN for PAIN, TAB 12/29/18 Furosemide* (Furosemide*) 40 Mg Tablet, 40 MG PO DAILY, TAB 12/29/18 Allopurinol* (Allopurinol*) 300 Mg Tablet, 300 MG PO DAILY, TAB 12/29/18 Folic Acid* (Folic Acid*) 1 Mg Tablet, 1 MG PO DAILY, TAB 12/29/18 Ergocalciferol (Vitamin D2) (VITAMIN D2) 50,000 Unit Capsule, 96288 UNIT PO ONCE A WEEK, CAP 12/29/18 Ferrous Sulfate* (Ferrous Sulfate*) 325 Mg Tabec, 325 MG PO TID, TAB 12/29/18 Hydralazine Hcl* (Apresoline*) 50 Mg Tab, 50 MG PO TID, #90 TAB 12/29/18 Medications Current Medications IV Flush (NS 3 ml) 3 ml PER PROTOCOL IV ; Start 12/28/18 at 04:30 Ondansetron HCl (Zofran Inj) 4 mg Q6H PRN IV NAUSEA/VOMITING Last administered on 01/03/19at 08:02; Admin Dose 4 MG; Start 12/28/18 at 04:30 Aspirin (Aspirin) 81 mg DAILY PO Last administered on 01/03/19at 08:12; Admin Dose 81 MG; Start 12/28/18 at 09:00 Nitroglycerin (Nitroglycerin (Sl Tab) 0.4 Mg) 1 tab Q5M PRN SL .CHEST PAIN Last administered on 01/03/19at 08:02; Admin Dose 1 TAB; Start 12/28/18 at 04:30 Diagnostic Test (Pha) (Accu-Chek) 1 ea 02 XX Last administered on 12/31/18at 01:01; Admin Dose 1 EA; Start 12/29/18 at 02:00 Miscellaneous Information 1 ea NOTE XX ; Start 12/28/18 at 05:00 Glucose (Glutose) 15 gm Q15M PRN PO DECREASED GLUCOSE; Start 12/28/18 at 05:00 Glucose (Glutose) 22.5 gm Q15M PRN PO DECREASED GLUCOSE; Start 12/28/18 at 05:00 Dextrose (D50w Syringe) 25 ml Q15M PRN IV DECREASED GLUCOSE; Start 12/28/18 at 05:00 Dextrose (D50w Syringe) 50 ml Q15M PRN IV DECREASED GLUCOSE; Start 12/28/18 at 05:00 Glucagon (Glucagen) 1 mg Q15M PRN IM DECREASED GLUCOSE; Start 12/28/18 at 05:00 Glucose (Glutose) 15 gm Q15M PRN BUCCAL DECREASED GLUCOSE; Start 12/28/18 at 05:00 Atorvastatin Calcium (Lipitor) 80 mg HS PO Last administered on 01/02/19 21:24; Admin Dose 80 MG; Start 12/29/18 at 21:00 Piperacillin Sod/ Tazobactam Sod 50 ml @ 100 mls/hr Q6 IVPB Last administered on 01/03/19at 12:37; Admin Dose 100 MLS/HR; Start 12/28/18 at 18:00 Phenol (Cepastat Lozenge) 1 lozenge Q1H PRN MT COUGH Last administered on 12/30/18 19:50; Admin Dose 1 LOZENGE; Start 12/28/18 at 17:30 Vancomycin HCl (Vanco Iv Per Pharmacy) VANCOMYCIN PER PHARMACY PER PROTOCOL XX ; Start 12/29/18 at 05:30 Escitalopram Oxalate (Lexapro) 10 mg DAILY PO Last administered on 01/03/19 08:13; Admin Dose 10 MG; Start 12/29/18 at 09:30 Risedronate (Actonel) 35 mg Tu@AC BREAKFAST PO ; Start 12/30/18 at 07:00 Mirtazapine (Remeron) 15 mg HS PO Last administered on 01/02/19 21:24; Admin Dose 15 MG; Start 12/29/18 at 21:00 Pantoprazole (Protonix Tab) 40 mg DAILY@06 PO Last administered on 01/03/19 05:30; Admin Dose 40 MG; Start 12/30/18 at 06:00 Docusate Sodium (Colace) 100 mg BID PO Last administered on 01/03/19 08:13; Admin Dose 100 MG; Start 12/29/18 at 18:30 Nitroglycerin/ Dextrose 250 ml @ 1.5 mls/hr TITRATE IV Last administered on 01/01/19 00:19; Admin Dose 1.5 MLS/HR; Start 12/31/18 at 23:00 Vancomycin HCl 250 ml @ 125 mls/hr Q48H IVPB Last administered on 01/03/19 06:05; Admin Dose 125 MLS/HR; Start 01/03/19 at 06:00 Carvedilol (Coreg) 12.5 mg BID PO Last administered on 01/03/19 08:13; Admin Dose 12.5 MG; Start 01/02/19 at 09:00 Clopidogrel Bisulfate (plaVIX) 75 mg DAILY PO Last administered on 01/03/19at 08:18; Admin Dose 75 MG; Start 01/03/19 at 09:00 Isosorbide Mononitrate (Imdur) 30 mg DAILY PO Last administered on 01/03/19at 08:13; Admin Dose 30 MG; Start 01/02/19 at 09:00 Furosemide (Lasix) 40 mg DAILY IV Last administered on 01/03/19at 08:18; Admin Dose 40 MG; Start 01/03/19 at 09:00 Insulin Aspart (Novolog Insulin Pen) NOVOLOG *MODERATE* ALGORITHM WITH MEALS BEDTIME SC ; Start 01/02/19 at 21:00 Assessment/Plan Hospital Course (Demo Recall) Acute AL CHF multivessel CAD severe AI Bacteremia anemia WILLIAM on CKD HTN Dyslipidemia ?pneumonia REC" cont current cardiac care abx as per IM awaiting transfer to [facility] Consider renal consultation NTG IV prn add [place] DR Alvarenga will resume cardiac care on Saturday KARELY DELATORRE MD January 03, 2019 13:03
[2019-01-03] MEDS: CEPASTAT LOZENGE MT PRN (13:05)
--- NOTE | 2019-01-03 13:16 | CONS ---
Assessment/Plan Assessment/Plan Assessment/Plan (Daily) 1. Acute kidney injury on CKD III 2/2 Hemodynamics from CHF + NSTEMI 2. Hypokalemia 3. Hypernatremia 4. acute NSTEMI s/p LHC showed multivessel obstructive CAD 5. CAD mulitivessels obstructive Plan: BUN/Cr went upto 60/2.31, K stable, on NTG gtt for chest pain IV lasix 40mg IV daily IV abx zosyn for bactremia, renally dose all abx and monitor electrolytes s/p LOUIE on 12/30/18 showed severe AI and no vegetations, Cr bumped to 2.0 - As per Call Center Rn discussion with Primary caridology pt has chronic AI and CKD- After discussion pt deemed high risk for CABG so recommended for transfer to [facility] for staged complex PCI of LAD and RCA, and possible staged TAVR- family in agreement for transfer- awaiting bed availability will continue to follow up Consultation Date/Type/Reason Admit Date/Time December 28, 2018 at 03:23 Initial Consult Date 12/28/18 Type of Consult NEPHROLOGY Requesting Provider: KRYSTAL BERNARD Date/Time of Note DATE: 01/03/19 TIME: 13:16 24 HR Interval Summary Free Text/Dictation BUN/Cr went upto 60/2.31, K stable, on NTG gtt for chest pain Exam/Review of Systems Exam Vitals Vital Signs Date Temp Pulse Resp B/P (MAP) Pulse Ox O2 O2 Flow FiO2 Time Delivery Rate 01/03/19 73 31 122/38 94 09:00 (66) 01/03/19 98.2 3.0 08:00 01/03/19 Nasal 07:00 Cannula 01/01/19 23:26 Intake and Output 01/02/19 01/02/19 01/03/19 1414:59 22:59 06:59 IntakeIntake Total 151.5 ml 300 ml 400 ml OutputOutput Total 225 ml 315 ml 300 ml BalanceBalance -73.5 ml -15 ml 100 ml Exam Gen: Frail , no acute distress Eyes: PERRL, no icterus HEENT: Moist mucous membranes, clear oropharynx Neck: + JVD ,, no lymphadenopathy Card: Regular rate and rhythm, no murmurs appreciated Pulm: Rales throughout. Abd: Soft, nontender, nondistended. Ext: No cyanosis/clubbing/edema. Results Result Diagram: 01/03/19 0424 01/03/19 0424 Results 24hrs Laboratory Tests Test 01/02/19 17:07 01/02/19 21:27 01/03/19 04:24 01/03/19 08:09 Bedside Glucose 140 126 134 White Blood Count 9.7 Red Blood Count 2.69 L Hemoglobin 7.9 L Hematocrit 25.6 L Mean Corpuscular 95.2 Volume Mean Corpuscular 29.4 Hemoglobin Mean Corpuscular 30.9 L Hemoglobin Concent Red Cell 16.3 H Distribution Width Platelet Count 294 Mean Platelet Volume 10.1 Immature 0.600 H Granulocytes % Neutrophils % 75.7 Lymphocytes % 14.1 L Monocytes % 6.1 Eosinophils % 3.0 Basophils % 0.5 Nucleated Red Blood 0.0 Cells % Immature 0.060 H Granulocytes # Neutrophils # 7.3 Lymphocytes # 1.4 Monocytes # 0.6 Eosinophils # 0.3 Basophils # 0.1 Nucleated Red Blood 0.0 Cells # Sodium Level 144 Potassium Level 3.6 Chloride Level 109 Carbon Dioxide Level 27 Anion Gap 8 Blood Urea Nitrogen 60 H Creatinine 2.31 H Est Glomerular Filtrat Rate mL/min Glucose Level 103 Calcium Level 8.7 Phosphorus Level 3.6 Magnesium Level 2.6 H Test 01/03/19 12:39 Bedside Glucose 150 Medications Medication Current Medications IV Flush (NS 3 ml) 3 ml PER PROTOCOL IV ; Start 12/28/18 at 04:30 Ondansetron HCl (Zofran Inj) 4 mg Q6H PRN IV NAUSEA/VOMITING Last administered on 01/03/19at 08:02; Admin Dose 4 MG; Start 12/28/18 at 04:30 Aspirin (Aspirin) 81 mg DAILY PO Last administered on 01/03/19at 08:12; Admin Dose 81 MG; Start 12/28/18 at 09:00 Nitroglycerin (Nitroglycerin (Sl Tab) 0.4 Mg) 1 tab Q5M PRN SL .CHEST PAIN Last administered on 01/03/19at 08:02; Admin Dose 1 TAB; Start 12/28/18 at 04:30 Diagnostic Test (Pha) (Accu-Chek) 1 ea 02 XX Last administered on 12/31/18at 01:01; Admin Dose 1 EA; Start 12/29/18 at 02:00 Miscellaneous Information 1 ea NOTE XX ; Start 12/28/18 at 05:00 Glucose (Glutose) 15 gm Q15M PRN PO DECREASED GLUCOSE; Start 12/28/18 at 05:00 Glucose (Glutose) 22.5 gm Q15M PRN PO DECREASED GLUCOSE; Start 12/28/18 at 05:00 Dextrose (D50w Syringe) 25 ml Q15M PRN IV DECREASED GLUCOSE; Start 12/28/18 at 05:00 Dextrose (D50w Syringe) 50 ml Q15M PRN IV DECREASED GLUCOSE; Start 12/28/18 at 05:00 Glucagon (Glucagen) 1 mg Q15M PRN IM DECREASED GLUCOSE; Start 12/28/18 at 05:00 Glucose (Glutose) 15 gm Q15M PRN BUCCAL DECREASED GLUCOSE; Start 12/28/18 at 05:00 Atorvastatin Calcium (Lipitor) 80 mg HS PO Last administered on 01/02/19at 21:24; Admin Dose 80 MG; Start 12/29/18 at 21:00 Phenol (Cepastat Lozenge) 1 lozenge Q1H PRN MT COUGH Last administered on 01/03/19at 13:05; Admin Dose 1 LOZENGE; Start 12/28/18 at 17:30 Vancomycin HCl (Vanco Iv Per Pharmacy) VANCOMYCIN PER PHARMACY PER PROTOCOL XX ; Start 12/29/18 at 05:30 Escitalopram Oxalate (Lexapro) 10 mg DAILY PO Last administered on 01/03/19at 08:13; Admin Dose 10 MG; Start 12/29/18 at 09:30 Risedronate (Actonel) 35 mg Tu@AC BREAKFAST PO ; Start 12/30/18 at 07:00 Mirtazapine (Remeron) 15 mg HS PO Last administered on 01/02/19at 21:24; Admin Dose 15 MG; Start 12/29/18 at 21:00 Pantoprazole (Protonix Tab) 40 mg DAILY@06 PO Last administered on 01/03/19at 05:30; Admin Dose 40 MG; Start 12/30/18 at 06:00 Docusate Sodium (Colace) 100 mg BID PO Last administered on 01/03/19at 08:13; Admin Dose 100 MG; Start 12/29/18 at 18:30 Nitroglycerin/ Dextrose 250 ml @ 1.5 mls/hr TITRATE IV Last administered on 01/01/19at 00:19; Admin Dose 1.5 MLS/HR; Start 12/31/18 at 23:00 Vancomycin HCl 250 ml @ 125 mls/hr Q48H IVPB Last administered on 01/03/19at 06:05; Admin Dose 125 MLS/HR; Start 01/03/19 at 06:00 Carvedilol (Coreg) 12.5 mg BID PO Last administered on 01/03/19at 08:13; Admin Dose 12.5 MG; Start 01/02/19 at 09:00 Clopidogrel Bisulfate (plaVIX) 75 mg DAILY PO Last administered on 01/03/19at 08:18; Admin Dose 75 MG; Start 01/03/19 at 09:00 Isosorbide Mononitrate (Imdur) 30 mg DAILY PO Last administered on 01/03/19at 08:13; Admin Dose 30 MG; Start 01/02/19 at 09:00 Furosemide (Lasix) 40 mg DAILY IV Last administered on 01/03/19at 08:18; Admin Dose 40 MG; Start 01/03/19 at 09:00 Insulin Aspart (Novolog Insulin Pen) NOVOLOG *MODERATE* ALGORITHM WITH MEALS BEDTIME SC ; Start 01/02/19 at 21:00 Ranolazine (Ranexa) 1,000 mg Q12 PO ; Start 01/03/19 at 13:30; Status UNV Piperacillin Sod/ Tazobactam Sod 50 ml @ 100 mls/hr Q8 IVPB ; Start 01/03/19 at 22:00 PATTI CALLEJAS MD January 03, 2019 13:16
--- NOTE | 2019-01-03 16:11 | CONS ---
Assessment/Plan Assessment/Plan Assessment/Plan (Daily) IMP: 1. s/p Acute [place] 2. CHF 3. Hypercapnic Resp Insufficiency 4. Severe CAD 5. Bacteremia 6. Acute and CKD 7. Possible aspiration pneumonia RECS: 1. Aggressive diuresis as per Cards 2. Follow I/O's and renal function 3. Aspiration precautions 4. BiPAP prn 5. Am CXR/ABG Consultation Date/Type/Reason Admit Date/Time December 28, 2018 at 03:23 Date of Consultation: January 03, 2019 Type of Consult Pulm/CCM Date/Time of Note DATE: 01/03/19 TIME: 16:05 Hx of Present Illness Briefly, this is an 83-year-old female with reported history of dementia, hypertension, dyslipidemia, severe MR and aortic stenosis, admitted 12/28/18, found to have ACS s/p LHC showing 90% disease of the LAD and disease along the RCA.Patient was placed in the ICU and started on heparin drip and also required nitroglycerin drip at one point as well. Patient also required BiPAP for pulmonary edema which improved. Patient was evaluated for the need for CABG, however she was also treated for coagulase negative staph bacteremia 2 out of 2 bottles and elevated white blood cell count secondary to this, placed on antibiotics for that. White blood cell count improved as it was trending down and vital signs are stable overall. Patient also underwent LOUIE that did not show any apparent vegetations. Patient was transferred out of the intensive care unit and is presently on telemetry floor. Patient was continued on cardiac medications. Mover Helper here called patient's other resume writer Dr. Archuleta at [facility], and after review of patient comorbidities including dementia and CKD, patient will transfer to [facility] for high risk PCI to LAD and RCA, with possible staged TAVR for severe AI. On the evening of December 31, 2018, patient had some worsening shortness of breath and had to be transferred back to the intensive care unit. She is now off BiPAP s/p aggressive diuresis. Subjective hx not possible: pt non-verbal Past Medical History Medical History: congestive heart failure, coronary artery disease, diabetes, high cholesterol, hypertension Home Meds Reported Medications Atenolol* (Atenolol*) 25 Mg Tablet, 25 MG PO DAILY, #30 TAB 12/29/18 Icosapent Ethyl (VASCEPA) 1 Gm Capsule, 2 GM PO BID, CAP 12/29/18 Linagliptin (TRADJENTA) 5 Mg Tablet, 5 MG PO DAILY, TAB 12/29/18 Risedronate* (Actonel*) 35 Mg Tablet, 35 MG PO Q7D, #4 TAB 12/29/18 Dexlansoprazole (Dexilant) 60 Mg Cap., 60 MG PO DAILY, #30 CAP 12/29/18 Fenofibrate Nanocrystallized* (Fenofibrate*) 145 Mg Tablet, 145 MG PO DAILY, TAB 12/29/18 Rosuvastatin Calcium* (Crestor*) 40 Mg Tablet, 40 MG PO QHS, #30 TAB 12/29/18 Escitalopram Oxalate* (Lexapro*) 10 Mg Tablet, 10 MG PO DAILY, #30 TAB 12/29/18 Mirtazapine* (Mirtazapine*) 15 Mg Tablet, 15 MG PO HS, TAB 12/29/18 Tramadol Hcl* (Ultram*) 50 Mg Tablet, 50 MG PO Q6H PRN for PAIN, TAB 12/29/18 Furosemide* (Furosemide*) 40 Mg Tablet, 40 MG PO DAILY, TAB 12/29/18 Allopurinol* (Allopurinol*) 300 Mg Tablet, 300 MG PO DAILY, TAB 12/29/18 Folic Acid* (Folic Acid*) 1 Mg Tablet, 1 MG PO DAILY, TAB 12/29/18 Ergocalciferol (Vitamin D2) (VITAMIN D2) 50,000 Unit Capsule, 88871 UNIT PO ONCE A WEEK, CAP 12/29/18 Ferrous Sulfate* (Ferrous Sulfate*) 325 Mg Tabec, 325 MG PO TID, TAB 12/29/18 Hydralazine Hcl* (Apresoline*) 50 Mg Tab, 50 MG PO TID, #90 TAB 12/29/18 Medications Current Medications IV Flush (NS 3 ml) 3 ml PER PROTOCOL IV ; Start 12/28/18 at 04:30 Ondansetron HCl (Zofran Inj) 4 mg Q6H PRN IV NAUSEA/VOMITING Last administered on 01/03/19at 08:02; Admin Dose 4 MG; Start 12/28/18 at 04:30 Aspirin (Aspirin) 81 mg DAILY PO Last administered on 01/03/19at 08:12; Admin Dose 81 MG; Start 12/28/18 at 09:00 Nitroglycerin (Nitroglycerin (Sl Tab) 0.4 Mg) 1 tab Q5M PRN SL .CHEST PAIN Last administered on 01/03/19at 08:02; Admin Dose 1 TAB; Start 12/28/18 at 04:30 Diagnostic Test (Pha) (Accu-Chek) 1 ea 02 XX Last administered on 12/31/18at 01:01; Admin Dose 1 EA; Start 12/29/18 at 02:00 Miscellaneous Information 1 ea NOTE XX ; Start 12/28/18 at 05:00 Glucose (Glutose) 15 gm Q15M PRN PO DECREASED GLUCOSE; Start 12/28/18 at 05:00 Glucose (Glutose) 22.5 gm Q15M PRN PO DECREASED GLUCOSE; Start 12/28/18 at 05:00 Dextrose (D50w Syringe) 25 ml Q15M PRN IV DECREASED GLUCOSE; Start 12/28/18 at 05:00 Dextrose (D50w Syringe) 50 ml Q15M PRN IV DECREASED GLUCOSE; Start 12/28/18 at 05:00 Glucagon (Glucagen) 1 mg Q15M PRN IM DECREASED GLUCOSE; Start 12/28/18 at 05:00 Glucose (Glutose) 15 gm Q15M PRN BUCCAL DECREASED GLUCOSE; Start 12/28/18 at 05:00 Atorvastatin Calcium (Lipitor) 80 mg HS PO Last administered on 01/02/19at 21:24; Admin Dose 80 MG; Start 12/29/18 at 21:00 Phenol (Cepastat Lozenge) 1 lozenge Q1H PRN MT COUGH Last administered on 01/03/19at 13:05; Admin Dose 1 LOZENGE; Start 12/28/18 at 17:30 Vancomycin HCl (Vanco Iv Per Pharmacy) VANCOMYCIN PER PHARMACY PER PROTOCOL XX ; Start 12/29/18 at 05:30 Escitalopram Oxalate (Lexapro) 10 mg DAILY PO Last administered on 01/03/19at 08:13; Admin Dose 10 MG; Start 12/29/18 at 09:30 Risedronate (Actonel) 35 mg Tu@AC BREAKFAST PO ; Start 12/30/18 at 07:00 Mirtazapine (Remeron) 15 mg HS PO Last administered on 01/02/19at 21:24; Admin Dose 15 MG; Start 12/29/18 at 21:00 Pantoprazole (Protonix Tab) 40 mg DAILY@06 PO Last administered on 01/03/19at 05:30; Admin Dose 40 MG; Start 12/30/18 at 06:00 Docusate Sodium (Colace) 100 mg BID PO Last administered on 01/03/19at 08:13; Admin Dose 100 MG; Start 12/29/18 at 18:30 Nitroglycerin/ Dextrose 250 ml @ 1.5 mls/hr TITRATE IV Last administered on 01/01/19at 00:19; Admin Dose 1.5 MLS/HR; Start 12/31/18 at 23:00 Vancomycin HCl 250 ml @ 125 mls/hr Q48H IVPB Last administered on 01/03/19at 06:05; Admin Dose 125 MLS/HR; Start 01/03/19 at 06:00 Carvedilol (Coreg) 12.5 mg BID PO Last administered on 01/03/19at 08:13; Admin Dose 12.5 MG; Start 01/02/19 at 09:00 Clopidogrel Bisulfate (plaVIX) 75 mg DAILY PO Last administered on 01/03/19at 08:18; Admin Dose 75 MG; Start 01/03/19 at 09:00 Isosorbide Mononitrate (Imdur) 30 mg DAILY PO Last administered on 01/03/19at 08:13; Admin Dose 30 MG; Start 01/02/19 at 09:00 Furosemide (Lasix) 40 mg DAILY IV Last administered on 01/03/19at 08:18; Admin Dose 40 MG; Start 01/03/19 at 09:00 Insulin Aspart (Novolog Insulin Pen) NOVOLOG *MODERATE* ALGORITHM WITH MEALS BEDTIME SC ; Start 01/02/19 at 21:00 Ranolazine (Ranexa) 1,000 mg Q12 PO ; Start 01/03/19 at 13:30 Piperacillin Sod/ Tazobactam Sod 50 ml @ 100 mls/hr Q8 IVPB ; Start 01/03/19 at 22:00 Allergies: Coded Allergies: No Known Allergy (Unverified , 12/29/18) Past Surgical History Past Surgical Hx: other Social History Alcohol Use: none Smoking Status: Never smoker Drug Use: none Exam/Review of Systems Exam Vitals Vital Signs Date Temp Pulse Resp B/P (MAP) Pulse Ox O2 O2 Flow FiO2 Time Delivery Rate 01/03/19 74 24 108/45 94 15:00 (66) 01/03/19 98.0 12:00 01/03/19 Nasal 3.0 08:00 Cannula 01/01/19 23:26 Intake and Output 01/02/19 01/02/19 01/03/19 1515:00 23:00 07:00 IntakeIntake Total 151.0 ml 300 ml 400 ml OutputOutput Total 230 ml 320 ml 300 ml BalanceBalance -79.0 ml -20 ml 100 ml Constitutional: alert, well developed Psych: no complaints Head: normocephalic, atraumatic Eyes: nl conjunctiva, nl lids ENMT: nl external ears & nose, mucosa pink and moist Neck: supple, non-tender, jvd Respiratory: crackles/rales Cardiovascular: regular rate and rhythm, jugular venous distention (JVD), systolic murmur Gastrointestinal: soft, nl liver, spleen Musculoskeletal: nl extremities to inspection Extremities: normal pulses Neurological: INSTRUCTOR PAINTING II-XII intact, confused Results Result Diagram: 01/03/19 0424 01/03/19 0424 Results 24hrs Laboratory Tests Test 01/02/19 17:07 01/02/19 21:27 01/03/19 04:24 01/03/19 08:09 Bedside Glucose 140 126 134 White Blood Count 9.7 Red Blood Count 2.69 L Hemoglobin 7.9 L Hematocrit 25.6 L Mean Corpuscular 95.2 Volume Mean Corpuscular 29.4 Hemoglobin Mean Corpuscular 30.9 L Hemoglobin Concent Red Cell 16.3 H Distribution Width Platelet Count 294 Mean Platelet Volume 10.1 Immature 0.600 H Granulocytes % Neutrophils % 75.7 Lymphocytes % 14.1 L Monocytes % 6.1 Eosinophils % 3.0 Basophils % 0.5 Nucleated Red Blood 0.0 Cells % Immature 0.060 H Granulocytes # Neutrophils # 7.3 Lymphocytes # 1.4 Monocytes # 0.6 Eosinophils # 0.3 Basophils # 0.1 Nucleated Red Blood 0.0 Cells # Sodium Level 144 Potassium Level 3.6 Chloride Level 109 Carbon Dioxide Level 27 Anion Gap 8 Blood Urea Nitrogen 60 H Creatinine 2.31 H Est Glomerular Filtrat Rate mL/min Glucose Level 103 Calcium Level 8.7 Phosphorus Level 3.6 Magnesium Level 2.6 H Test 01/03/19 12:39 Bedside Glucose 150 Medications Medication Current Medications IV Flush (NS 3 ml) 3 ml PER PROTOCOL IV ; Start 12/28/18 at 04:30 Ondansetron HCl (Zofran Inj) 4 mg Q6H PRN IV NAUSEA/VOMITING Last administered on 01/03/19 08:02; Admin Dose 4 MG; Start 12/28/18 at 04:30 Aspirin (Aspirin) 81 mg DAILY PO Last administered on 01/03/19at 08:12; Admin Dose 81 MG; Start 12/28/18 at 09:00 Nitroglycerin (Nitroglycerin (Sl Tab) 0.4 Mg) 1 tab Q5M PRN SL .CHEST PAIN Last administered on 01/03/19at 08:02; Admin Dose 1 TAB; Start 12/28/18 at 04:30 Diagnostic Test (Pha) (Accu-Chek) 1 ea 02 XX Last administered on 12/31/18at 01:01; Admin Dose 1 EA; Start 12/29/18 at 02:00 Miscellaneous Information 1 ea NOTE XX ; Start 12/28/18 at 05:00 Glucose (Glutose) 15 gm Q15M PRN PO DECREASED GLUCOSE; Start 12/28/18 at 05:00 Glucose (Glutose) 22.5 gm Q15M PRN PO DECREASED GLUCOSE; Start 12/28/18 at 05:00 Dextrose (D50w Syringe) 25 ml Q15M PRN IV DECREASED GLUCOSE; Start 12/28/18 at 05:00 Dextrose (D50w Syringe) 50 ml Q15M PRN IV DECREASED GLUCOSE; Start 12/28/18 at 05:00 Glucagon (Glucagen) 1 mg Q15M PRN IM DECREASED GLUCOSE; Start 12/28/18 at 05:00 Glucose (Glutose) 15 gm Q15M PRN BUCCAL DECREASED GLUCOSE; Start 12/28/18 at 05:00 Atorvastatin Calcium (Lipitor) 80 mg HS PO Last administered on 01/02/19at 21:24; Admin Dose 80 MG; Start 12/29/18 at 21:00 Phenol (Cepastat Lozenge) 1 lozenge Q1H PRN MT COUGH Last administered on 01/03/19at 13:05; Admin Dose 1 LOZENGE; Start 12/28/18 at 17:30 Vancomycin HCl (Vanco Iv Per Pharmacy) VANCOMYCIN PER PHARMACY PER PROTOCOL XX ; Start 12/29/18 at 05:30 Escitalopram Oxalate (Lexapro) 10 mg DAILY PO Last administered on 01/03/19 08:13; Admin Dose 10 MG; Start 12/29/18 at 09:30 Risedronate (Actonel) 35 mg Tu@AC BREAKFAST PO ; Start 12/30/18 at 07:00 Mirtazapine (Remeron) 15 mg HS PO Last administered on 01/02/19at 21:24; Admin Dose 15 MG; Start 12/29/18 at 21:00 Pantoprazole (Protonix Tab) 40 mg DAILY@06 PO Last administered on 01/03/19 05:30; Admin Dose 40 MG; Start 12/30/18 at 06:00 Docusate Sodium (Colace) 100 mg BID PO Last administered on 01/03/19 08:13; Admin Dose 100 MG; Start 12/29/18 at 18:30 Nitroglycerin/ Dextrose 250 ml @ 1.5 mls/hr TITRATE IV Last administered on 01/01/19 00:19; Admin Dose 1.5 MLS/HR; Start 12/31/18 at 23:00 Vancomycin HCl 250 ml @ 125 mls/hr Q48H IVPB Last administered on 01/03/19 0 6:05; Admin Dose 125 MLS/HR; Start 01/03/19 at 06:00 Carvedilol (Coreg) 12.5 mg BID PO Last administered on 01/03/19 08:13; Admin Dose 12.5 MG; Start 01/02/19 at 09:00 Clopidogrel Bisulfate (plaVIX) 75 mg DAILY PO Last administered on 01/03/19 08:18; Admin Dose 75 MG; Start 01/03/19 at 09:00 Isosorbide Mononitrate (Imdur) 30 mg DAILY PO Last administered on 01/03/19 08:13; Admin Dose 30 MG; Start 01/02/19 at 09:00 Furosemide (Lasix) 40 mg DAILY IV Last administered on 01/03/19 08:18; Admin Dose 40 MG; Start 01/03/19 at 09:00 Insulin Aspart (Novolog Insulin Pen) NOVOLOG *MODERATE* ALGORITHM WITH MEALS BEDTIME SC ; Start 5/10/19 at 21:00 Ranolazine (Ranexa) 1,000 mg Q12 PO ; Start 01/03/19 at 13:30 Piperacillin Sod/ Tazobactam Sod 50 ml @ 100 mls/hr Q8 IVPB ; Start 01/03/19 at 22:00 ADIEL RAYMOND MD January 03, 2019 16:11
[2019-01-03] MEDS: RANOLAZINE (SR) 500 MG TAB PO SCH ×2 (16:13→21:20)
[2019-01-03] MEDS: ATORVASTATIN 80 MG TAB PO SCH (21:20)
[2019-01-03] MEDS: MIRTAZAPINE 15 MG TAB PO SCH (21:20)
[2019-01-04] VITALS (60 sets, daily range): BP systolic 83–170; BP diastolic 20–70; PULSE 71–107; RESP 13–38
[2019-01-04] MEDS: ACCU-CHEK XX SCH (02:00)
[2019-01-04] MEDS: NITROGLYCERIN 50 MG/D5W (PMX) 250 ML IV SCH (03:42)
[2019-01-04] MEDS ORDERED: morphine 2 MG INJ IV ONE (05:13)
[2019-01-04] MEDS: PANTOPRAZOLE (EC) 40 MG TAB PO SCH (05:27)
[2019-01-04] MEDS: PIPER-TAZO 2.25 GM (PMX) 50 ML IVPB SCH ×3 (05:27→21:40)
[2019-01-04] MEDS: INSULIN ASPART [NOVOLOG] 3 ML PEN SC SCH ×4 (07:35→20:21)
--- NOTE | 2019-01-04 08:03 | CONS ---
Assessment/Plan Assessment/Plan Assessment/Plan (Daily) 1. Acute kidney injury on CKD III 2/2 Hemodynamics from CHF + NSTEMI 2. Hypokalemia 3. Hypernatremia 4. acute NSTEMI s/p LHC showed multivessel obstructive CAD 5. CAD mulitivessels obstructive Plan: pt was having recurrent chest pain, s/p Successful PTCA and stenting of proximal left anterior descending artery using a 3 x 20 mm Synergy drug-eluting stent on 01/04/19 BUN/Cr 56/2.01, Other electrolytes stable, IV abx zosyn, renally dosed for bacteremia, renally dose all abx and monitor electrolytes IV lasix 40mg IV daily s/p LOUIE on 12/30/18 showed severe AI and no vegetations, Cr bumped to 2.0 - As per Record Keeper discussion with Primary caridology pt has chronic AI and CKD- After discussion pt deemed high risk for CABG so recommended for transfer to [facility] for staged complex PCI of LAD and RCA, and possible staged TAVR- family in agreement for transfer- awaiting bed availability will continue to follow up Consultation Date/Type/Reason Admit Date/Time December 28, 2018 at 03:23 Initial Consult Date 12/28/18 Type of Consult NEPHROLOGY Requesting Provider: KRYSTAL BERNARD Date/Time of Note DATE: 01/04/19 TIME: 08:03 24 HR Interval Summary Free Text/Dictation pt was having recurrent chest pain, s/p Successful PTCA and stenting of proximal left anterior descending artery using a 3 x 20 mm Synergy drug-eluting stent on 01/04/19 Exam/Review of Systems Exam Vitals Vital Signs Date Temp Pulse Resp B/P (MAP) Pulse Ox O2 O2 Flow FiO2 Time Delivery Rate 01/04/19 80 18 111/48 96 06:30 (69) 01/04/19 Nasal 06:00 Cannula 01/04/19 50 05:52 01/04/19 98.8 2.0 04:00 Intake and Output 01/03/19 01/03/19 01/04/19 1515:00 23:00 07:00 IntakeIntake Total 370 ml 320 ml 253.5 ml OutputOutput Total 770 ml 370 ml 260 ml BalanceBalance -400 ml -50 ml -6.5 ml Exam Gen: Frail , no acute distress Eyes: PERRL, no icterus HEENT: Moist mucous membranes, clear oropharynx Neck: + JVD ,, no lymphadenopathy Card: Regular rate and rhythm, no murmurs appreciated Pulm: Rales throughout. Abd: Soft, nontender, nondistended. Ext: No cyanosis/clubbing/edema. Results Result Diagram: 01/04/19 0434 01/04/19 0434 Results 24hrs Laboratory Tests Test 01/03/19 08:09 01/03/19 12:39 01/03/19 17:17 01/03/19 21:24 Bedside Glucose 134 150 113 143 Test 01/04/19 04:34 01/04/19 05:00 01/04/19 05:12 White Blood Count 14.3 #H Red Blood Count 3.00 L Hemoglobin 8.8 L Hematocrit 29.0 L Mean Corpuscular 96.7 Volume Mean Corpuscular 29.3 Hemoglobin Mean Corpuscular 30.3 L Hemoglobin Concen t Red Cell 16.6 H Distribution Width Platelet Count 337 Mean Platelet 9.9 Volume Immature 0.600 H Granulocytes % Neutrophils % 82.5 H Lymphocytes % 10.6 L Monocytes % 3.7 Eosinophils % 2.2 Basophils % 0.4 Nucleated Red 0.0 Blood Cells % Immature 0.090 H Granulocytes # Neutrophils # 11.8 H Lymphocytes # 1.5 Monocytes # 0.5 Eosinophils # 0.3 Basophils # 0.1 Nucleated Red 0.0 Blood Cells # Sodium Level 145 H Potassium Level 4.2 Chloride Level 110 Carbon Dioxide 26 Level Anion Gap 9 Blood Urea 56 H Nitrogen Creatinine 2.01 H Est Glomerular Filtrat Rate mL/min Glucose Level 123 Calcium Level 8.7 Phosphorus Level 4.5 Magnesium Level 2.7 H Creatine Kinase 33 Creatine Kinase 1.7 Index Creatinine Kinase 0.55 MB (Mass) Troponin I 1.320 *H Blood Gas Blood arterial Specimen Source Arterial Blood 01/04/2019 5:05:0 Date Drawn 1 AM Arterial Blood pH 7.387 (Temp corrected) Arterial Blood 43.9 pCO2 (Temp correct) Arterial Blood 85.4 pO2 (Temp corrected) Arterial Blood 25.8 HCO3 Arterial Blood 0.6 Base Excess Arterial Blood 94.8 L Oxygen Saturation Francis Test N/A Arterial Blood Right Radial Gas Puncture Site Arterial 0.3 Blood Carboxyhemo globin Arterial Blood 0.1 Methemoglobin Blood Gas A-a O2 76.9 H Differential Oxyhemoglobin 94.4 Percent Blood Gas 37.0 Temperature Blood Gas NASAL CANNULA Modality FiO2 30.0 Blood Gas UP Notified Whom Blood Gas 01/04/2019 5:19:0 Notified Time 5 AM Bedside Glucose 167 Medications Medication Current Medications IV Flush (NS 3 ml) 3 ml PER PROTOCOL IV ; Start 12/28/18 at 04:30 Ondansetron HCl (Zofran Inj) 4 mg Q6H PRN IV NAUSEA/VOMITING Last administered on 01/03/19at 08:02; Admin Dose 4 MG; Start 12/28/18 at 04:30 Aspirin (Aspirin) 81 mg DAILY PO Last administered on 01/03/19at 08:12; Admin Dose 81 MG; Start 12/28/18 at 09:00 Nitroglycerin (Nitroglycerin (Sl Tab) 0.4 Mg) 1 tab Q5M PRN SL .CHEST PAIN Last administered on 01/03/19at 08:02; Admin Dose 1 TAB; Start 12/28/18 at 04:30 Diagnostic Test (Pha) (Accu-Chek) 1 ea 02 XX Last administered on 12/31/18at 0 1:01; Admin Dose 1 EA; Start 12/29/18 at 02:00 Miscellaneous Information 1 ea NOTE XX ; Start 12/28/18 at 05:00 Glucose (Glutose) 15 gm Q15M PRN PO DECREASED GLUCOSE; Start 12/28/18 at 05:00 Glucose (Glutose) 22.5 gm Q15M PRN PO DECREASED GLUCOSE; Start 12/28/18 at 05:00 Dextrose (D50w Syringe) 25 ml Q15M PRN IV DECREASED GLUCOSE; Start 12/28/18 at 05:00 Dextrose (D50w Syringe) 50 ml Q15M PRN IV DECREASED GLUCOSE; Start 12/28/18 at 05:00 Glucagon (Glucagen) 1 mg Q15M PRN IM DECREASED GLUCOSE; Start 12/28/18 at 05:00 Glucose (Glutose) 15 gm Q15M PRN BUCCAL DECREASED GLUCOSE; Start 12/28/18 at 05: 00 Atorvastatin Calcium (Lipitor) 80 mg HS PO Last administered on 01/03/19at 21:20; Admin Dose 80 MG; Start 12/29/18 at 21:00 Phenol (Cepastat Lozenge) 1 lozenge Q1H PRN MT COUGH Last administered on 01/03/19 13:05; Admin Dose 1 LOZENGE; Start 12/28/18 at 17:30 Vancomycin HCl (Vanco Iv Per Pharmacy) VANCOMYCIN PER PHARMACY PER PROTOCOL XX ; Start 12/29/18 at 05:30 Escitalopram Oxalate (Lexapro) 10 mg DAILY PO Last administered on 01/03/19 08:13; Admin Dose 10 MG; Start 12/29/18 at 09:30 Risedronate (Actonel) 35 mg Tu@AC BREAKFAST PO ; Start 12/30/18 at 07:00 Mirtazapine (Remeron) 15 mg HS PO Last administered on 01/03/19 21:20; Admin Dose 15 MG; Start 12/29/18 at 21:00 Pantoprazole (Protonix Tab) 40 mg DAILY@06 PO Last administered on 01/04/19 05:27; Admin Dose 40 MG; Start 12/30/18 at 06:00 Docusate Sodium (Colace) 100 mg BID PO Last administered on 01/03/19 21:20; Admin Dose 100 MG; Start 12/29/18 at 18:30 Nitroglycerin/ Dextrose 250 ml @ 1.5 mls/hr TITRATE IV Last administered on 01/04/19 03:42; Admin Dose 1.5 MLS/HR; Start 12/31/18 at 23:00 Vancomycin HCl 250 ml @ 125 mls/hr Q48H IVPB Last administered on 01/03/19 06:05; Admin Dose 125 MLS/HR; Start 01/03/19 at 06:00 Carvedilol (Coreg) 12.5 mg BID PO Last administered on 01/03/19 21:21; Admin Dose 12.5 MG; Start 01/02/19 at 09:00 Clopidogrel Bisulfate (plaVIX) 75 mg DAILY PO Last administered on 01/03/19 08:18; Admin Dose 75 MG; Start 01/03/19 at 09:00 Isosorbide Mononitrate (Imdur) 30 mg DAILY PO Last administered on 01/03/19 08:13; Admin Dose 30 MG; Start 01/02/19 at 09:00 Furosemide (Lasix) 40 mg DAILY IV Last administered on 5/11/19at 08:18; Admin Dose 40 MG; Start 01/03/19 at 09:00 Insulin Aspart (Novolog Insulin Pen) NOVOLOG *MODERATE* ALGORITHM WITH MEALS BEDTIME SC ; Start 01/02/19 at 21:00 Ranolazine (Ranexa) 1,000 mg Q12 PO Last administered on 01/03/19at 21:20; Admin Dose 1,000 MG; Start 01/03/19 at 13:30 Piperacillin Sod/ Tazobactam Sod 50 ml @ 100 mls/hr Q8 IVPB Last administered on 01/04/19at 05:27; Admin Dose 100 MLS/HR; Start 01/03/19 at 22:00 PATTI CALLEJAS MD January 04, 2019 08:03
[2019-01-04] MEDS: ONDANSETRON 4 MG INJ IV PRN (08:54)
[2019-01-04] MEDS: ASPIRIN 81 MG TAB PO SCH (08:54)
[2019-01-04] MEDS: FUROSEMIDE 40 MG INJ IV SCH (08:54)
[2019-01-04] MEDS: ISOSORBIDE MONONITRATE(SR)30 MG TAB PO SCH (09:00)
[2019-01-04] MEDS: ESCITALOPRAM 10 MG TAB PO SCH (09:00)
[2019-01-04] MEDS: DOCUSATE SODIUM 100 MG CAP PO SCH ×2 (09:00→20:21)
[2019-01-04] MEDS: RANOLAZINE (SR) 500 MG TAB PO SCH ×2 (09:00→20:21)
[2019-01-04] MEDS: CLOPIDOGREL 75 MG TAB PO SCH (09:00)
[2019-01-04] MEDS ORDERED: HEPARIN 25000 UNITS/250 ML 250 ML ONE (09:16)
[2019-01-04] MEDS ORDERED: HEPARIN 25000 UNITS/250 ML 250 ML IV SCH (09:30)
[2019-01-04] MEDS ORDERED: HEPARIN 1000 UNITS/ML 10 ML INJ IV PRN (09:30)
[2019-01-04] MEDS ORDERED: HEPARIN 1000 UNITS/ML 10 ML INJ IV ONE (09:30)
--- NOTE | 2019-01-04 10:35 | CONS ---
Consult Date/Type/Reason Admit Date/Time December 28, 2018 at 03:23 Initial Consult Date 12/29/18 Type of Consultation: cv Requesting Provider: KRYSTAL BERNARD Date/Time of Note DATE: 01/04/19 TIME: 10:27 Subjective Interventioanl cardiology follow up note/ critical care note S; Dw Staff and in detail with use of track repair person Patient with recurrent chest pain last night and this morning. Improved with nitroglycerin drip now down to 4/10 no bleeding is reported. pt is still in ICU and on NTG drip + sob. O: General: no acute distress HEENT: NC/AT. pupils are equal. round. NECK: no stridor. CV: RRR. systolic/ diastolic murmur; no gallop or rubs. PULM: no wheezing or rhonchi. GI: SOFT, NT, ND, no rebound or guarding Extremity: trace B/L LE edema. no clubbing. neuro: awake and alert, OX3. Psych: calm and pleasant rectal: deferred CXR: 1. Interval decreased pulmonary edema. 2. Multifocal opacities most significantly involving the right upper lobe possibly reflecting superimposed pneumonia. 3. Small bilateral pleural effusions. 4. Stable cardiomegaly with aortic atherosclerosis. Objective Vitals Vital Signs Date Temp Pulse Resp B/P (MAP) Pulse Ox O2 O2 Flow FiO2 Time Delivery Rate 01/04/19 80 18 111/48 96 06:30 (69) 01/04/19 Nasal 06:00 Cannula 01/04/19 50 05:52 01/04/19 98.8 2.0 04:00 Intake and Output 01/03/19 01/03/19 01/04/19 1515:00 23:00 07:00 IntakeIntake Total 370 ml 320 ml 253.5 ml OutputOutput Total 770 ml 370 ml 260 ml BalanceBalance -400 ml -50 ml -6.5 ml Results/Medications Result Diagram: 01/04/19 0926 01/04/19 0434 Results 24 hrs Laboratory Tests Test 01/03/19 12:39 01/03/19 17:17 01/03/19 21:24 01/04/19 04:34 Bedside Glucose 150 113 143 White Blood Count 14.3 #H Red Blood Count 3.00 L Hemoglobin 8.8 L Hematocrit 29.0 L Mean Corpuscular 96.7 Volume Mean Corpuscular 29.3 Hemoglobin Mean Corpuscular 30.3 L Hemoglobin Concen t Red Cell 16.6 H Distribution Width Platelet Count 337 Mean Platelet 9.9 Volume Immature 0.600 H Granulocytes % Neutrophils % 82.5 H Lymphocytes % 10.6 L Monocytes % 3.7 Eosinophils % 2.2 Basophils % 0.4 Nucleated Red 0.0 Blood Cells % Immature 0.090 H Granulocytes # Neutrophils # 11.8 H Lymphocytes # 1.5 Monocytes # 0.5 Eosinophils # 0.3 Basophils # 0.1 Nucleated Red 0.0 Blood Cells # Sodium Level 145 H Potassium Level 4.2 Chloride Level 110 Carbon Dioxide 26 Level Anion Gap 9 Blood Urea 56 H Nitrogen Creatinine 2.01 H Est Glomerular Filtrat Rate mL/min Glucose Level 123 Calcium Level 8.7 Phosphorus Level 4.5 Magnesium Level 2.7 H Creatine Kinase 33 Creatine Kinase 1.7 Index Creatinine Kinase 0.55 MB (Mass) Troponin I 1.320 *H Test 01/04/19 05:00 01/04/19 05:12 01/04/19 08:14 01/04/19 09:26 Blood Gas Blood arterial Specimen Source Arterial Blood 01/04/2019 5:05:0 Date Drawn 1 AM Arterial Blood pH 7.387 (Temp corrected) Arterial Blood 43.9 pCO2 (Temp correct) Arterial Blood 85.4 pO2 (Temp corrected) Arterial Blood 25.8 HCO3 Arterial Blood 0.6 Base Excess Arterial Blood 94.8 L Oxygen Saturation Francis Test N/A Arterial Blood Right Radial Gas Puncture Site Arterial 0.3 Blood Carboxyhemo globin Arterial Blood 0.1 Methemoglobin Blood Gas A-a O2 76.9 H Differential Oxyhemoglobin 94.4 Percent Blood Gas 37.0 Temperature Blood Gas NASAL CANNULA Modality FiO2 30.0 Blood Gas UP Notified Whom Blood Gas 01/04/2019 5:19:0 Notified Time 5 AM Bedside Glucose 167 135 White Blood Count 15.1 H Red Blood Count 2.88 L Hemoglobin 8.7 L Hematocrit 28.5 L Mean Corpuscular 99.0 Volume Mean Corpuscular 30.2 Hemoglobin Mean Corpuscular 30.5 L Hemoglobin Concen t Red Cell 16.3 H Distribution Width Platelet Count 314 Mean Platelet 9.8 Volume Immature 0.600 H Granulocytes % Neutrophils % 86.0 H Lymphocytes % 9.5 L Monocytes % 2.9 Eosinophils % 0.6 Basophils % 0.4 Nucleated Red 0.0 Blood Cells % Immature 0.090 H Granulocytes # Neutrophils # 13.0 H Lymphocytes # 1.4 Monocytes # 0.4 Eosinophils # 0.1 Basophils # 0.1 Nucleated Red 0.0 Blood Cells # Prothrombin Time 15.1 H Prothrombin Time 1.2 Ratio INR International 1.18 Normalized Ratio Activated 33.2 Partial Thrombopl ast Time Home Meds Reported Medications Atenolol* (Atenolol*) 25 Mg Tablet, 25 MG PO DAILY, #30 TAB 12/29/18 Icosapent Ethyl (VASCEPA) 1 Gm Capsule, 2 GM PO BID, CAP 12/29/18 Linagliptin (TRADJENTA) 5 Mg Tablet, 5 MG PO DAILY, TAB 12/29/18 Risedronate* (Actonel*) 35 Mg Tablet, 35 MG PO Q7D, #4 TAB 12/29/18 Dexlansoprazole (Dexilant) 60 Mg Cap.mp, 60 MG PO DAILY, #30 CAP 12/29/18 Fenofibrate Nanocrystallized* (Fenofibrate*) 145 Mg Tablet, 145 MG PO DAILY, TAB 12/29/18 Rosuvastatin Calcium* (Crestor*) 40 Mg Tablet, 40 MG PO QHS, #30 TAB 12/29/18 Escitalopram Oxalate* (Lexapro*) 10 Mg Tablet, 10 MG PO DAILY, #30 TAB 12/29/18 Mirtazapine* (Mirtazapine*) 15 Mg Tablet, 15 MG PO HS, TAB 12/29/18 Tramadol Hcl* (Ultram*) 50 Mg Tablet, 50 MG PO Q6H PRN for PAIN, TAB 12/29/18 Furosemide* (Furosemide*) 40 Mg Tablet, 40 MG PO DAILY, TAB 12/29/18 Allopurinol* (Allopurinol*) 300 Mg Tablet, 300 MG PO DAILY, TAB 12/29/18 Folic Acid* (Folic Acid*) 1 Mg Tablet, 1 MG PO DAILY, TAB 12/29/18 Ergocalciferol (Vitamin D2) (VITAMIN D2) 50,000 Unit Capsule, 69204 UNIT PO ONCE A WEEK, CAP 12/29/18 Ferrous Sulfate* (Ferrous Sulfate*) 325 Mg Tabec, 325 MG PO TID, TAB 12/29/18 Hydralazine Hcl* (Apresoline*) 50 Mg Tab, 50 MG PO TID, #90 TAB 12/29/18 Medications Current Medications IV Flush (NS 3 ml) 3 ml PER PROTOCOL IV ; Start 12/28/18 at 04:30 Ondansetron HCl (Zofran Inj) 4 mg Q6H PRN IV NAUSEA/VOMITING Last administered on 01/04/19at 08:54; Admin Dose 4 MG; Start 12/28/18 at 04:30 Aspirin (Aspirin) 81 mg DAILY PO Last administered on 01/04/19 08:54; Admin Dose 81 MG; Start 12/28/18 at 09:00 Nitroglycerin (Nitroglycerin (Sl Tab) 0.4 Mg) 1 tab Q5M PRN SL .CHEST PAIN Last administered on 01/03/19at 08:02; Admin Dose 1 TAB; Start 12/28/18 at 04:30 Diagnostic Test (Pha) (Accu-Chek) 1 ea 02 XX Last administered on 12/31/18at 0 1:01; Admin Dose 1 EA; Start 12/29/18 at 02:00 Miscellaneous Information 1 ea NOTE XX ; Start 12/28/18 at 05:00 Glucose (Glutose) 15 gm Q15M PRN PO DECREASED GLUCOSE; Start 12/28/18 at 05:00 Glucose (Glutose) 22.5 gm Q15M PRN PO DECREASED GLUCOSE; Start 12/28/18 at 05:00 Dextrose (D50w Syringe) 25 ml Q15M PRN IV DECREASED GLUCOSE; Start 12/28/18 at 05:00 Dextrose (D50w Syringe) 50 ml Q15M PRN IV DECREASED GLUCOSE; Start 12/28/18 at 05:00 Glucagon (Glucagen) 1 mg Q15M PRN IM DECREASED GLUCOSE; Start 12/28/18 at 05:00 Glucose (Glutose) 15 gm Q15M PRN BUCCAL DECREASED GLUCOSE; Start 12/28/18 at 05: 00 Atorvastatin Calcium (Lipitor) 80 mg HS PO Last administered on 01/03/19at 21:20; Admin Dose 80 MG; Start 12/29/18 at 21:00 Phenol (Cepastat Lozenge) 1 lozenge Q1H PRN MT COUGH Last administered on 01/03/19at 13:05; Admin Dose 1 LOZENGE; Start 12/28/18 at 17:30 Vancomycin HCl (Vanco Iv Per Pharmacy) VANCOMYCIN PER PHARMACY PER PROTOCOL XX ; Start 12/29/18 at 05:30 Escitalopram Oxalate (Lexapro) 10 mg DAILY PO Last administered on 01/03/19at 08:13; Admin Dose 10 MG; Start 12/29/18 at 09:30 Risedronate (Actonel) 35 mg Tu@AC BREAKFAST PO ; Start 12/30/18 at 07:00 Mirtazapine (Remeron) 15 mg HS PO Last administered on 01/03/19 21:20; Admin Dose 15 MG; Start 12/29/18 at 21:00 Pantoprazole (Protonix Tab) 40 mg DAILY@06 PO Last administered on 01/04/19 05:27; Admin Dose 40 MG; Start 12/30/18 at 06:00 Docusate Sodium (Colace) 100 mg BID PO Last administered on 01/03/19 21:20; Admin Dose 100 MG; Start 12/29/18 at 18:30 Nitroglycerin/ Dextrose 250 ml @ 1.5 mls/hr TITRATE IV Last administered on 01/04/19 03:42; Admin Dose 1.5 MLS/HR; Start 12/31/18 at 23:00 Vancomycin HCl 250 ml @ 125 mls/hr Q48H IVPB Last administered on 01/03/19 06:05; Admin Dose 125 MLS/HR; Start 01/03/19 at 06:00 Carvedilol (Coreg) 12.5 mg BID PO Last administered on 01/04/19 08:55; Admin Dose 12.5 MG; Start 01/02/19 at 09:00 Clopidogrel Bisulfate (plaVIX) 75 mg DAILY PO Last administered on 01/04/19 09:00; Admin Dose 75 MG; Start 01/03/19 at 09:00 Isosorbide Mononitrate (Imdur) 30 mg DAILY PO Last administered on 01/03/19 08:13; Admin Dose 30 MG; Start 01/02/19 at 09:00 Furosemide (Lasix) 40 mg DAILY IV Last administered on 01/04/19 08:54; Admin Dose 40 MG; Start 01/03/19 at 09:00 Insulin Aspart (Novolog Insulin Pen) NOVOLOG *MODERATE* ALGORITHM WITH MEALS BEDTIME SC ; Start 01/02/19 at 21:00 Ranolazine (Ranexa) 1,000 mg Q12 PO Last administered on 01/04/19at 09:00; Admin Dose 1,000 MG; Start 01/03/19 at 13:30 Piperacillin Sod/ Tazobactam Sod 50 ml @ 100 mls/hr Q8 IVPB Last administered on 01/04/19at 05:27; Admin Dose 100 MLS/HR; Start 01/03/19 at 22:00 Heparin Sodium (Porcine) (Heparin (1000 Units/ml)) 4,000 unit PER PROTOCOL PRN IV aPTT<47; Start 01/04/19 at 09:30 Heparin Sodium (Porcine) 250 ml @ 0 mls/hr PER PROTOCOL IV Last administered on 01/04/19at 09:37; Admin Dose 8.5 MLS/HR; Start 01/04/19 at 09:30 Assessment/Plan Hospital Course (Demo Recall) Acute [place] CHF multivessel CAD severe AI Bacteremia anemia WILLIAM on CKD HTN Dyslipidemia ?pneumonia recurrent post [place] angina despite optimized medical therapy REC" cont current cardiac care abx as per IM have been awaiting transfer to [facility] but still no response from Consider renal consultation NTG IV prn cont Ranexa Discussed with patient's regular tobacco conditioner Dr. Strange. Patient has been felt to be too high risk by CT surgery for cardiac surgery. Still awaiting transfer to [facility] but they have not been able to accommodate her. Now that she is in ICU status will be a more difficult. With the use of track repair person different options have been discussed with the patient her in detail including continuation of medical therapy awaiting until tomorrow PCI done by Dr. Strange and awaiting until transfer to [facility]. Patient and are insistent to have procedure done as soon as possible not that she has recurrent chest discomfort. Risks benefits alternatives of of high risk coronary angiogram left heart catheterization PCI intra-aortic balloon pump discussed with the patient and her in detail. High risk of infection due to her bacteremia, renal failure due to her acute renal failure, [place] stroke etc. discussed with them in detail. High risk of vascular complication discussed with the patient and in detail. Patient and the family have consented to the procedure. We will call the [employer] Operator again for urgent cardiac catheterization More than 35 minutes of critical care time was spent treatment management is critically ill patient excluding any procedure DR Alvarenga will resume cardiac care on Saturday KARELY DELATORRE MD January 04, 2019 10:34
--- NOTE | 2019-01-04 12:10 | PN ---
Date/Time of Note Date/Time of Note DATE: 01/04/19 TIME: 12:08 Assessment/Plan VTE Prophylaxis Risk score (from Nsg)>0 risk: 9 SCD applied (from Nsg): No SCD contraindicated: other Pharmacological prophylaxis: heparin Lines/Catheters IV Catheter Type (from Nrsg): Peripheral IV Urinary Cath still in place: Yes Reason Cath still needed: urinary retention Assessment/Plan Hospital Course S: Patient had more chest pain this morning and nitro drip had to be restarted this morning. Also restarted on heparin drip as well. Now awaiting possible procedure left heart catheterization and other valve procedure here at [facility] given her acute symptoms in the last few hours. O:Vs - see below PE: Gen: Frail appearing elderly woman lying in bed, no acute distress HEENT: PERRL, no icterus, moist mucous membranes, clear oropharynx Neck: Supple Card: Regular rate and rhythm, no murmurs appreciated Pulm: Distant breath sounds bilaterally Abd: Soft, nontender, nondistended. Ext: No LE edema B/L Date/Time of Note Date/Time of Note DATE: 12/28/18 TIME: 11:48 Operative Report Procedure Date: December 28, 2018 Preoperative Diagnosis STEMI, new LBBB Postoperative Diagnosis Sever 2 vessel CAD, LAD and RCA, LAD is culprit with francine 2 flow, and cardiomyopathy with LVEF 35% Operation/Procedure Performed Coronary angiography Left heart catheterization Left ventriculography Moderate sedation with versed and fentanyl Assessment/Plan: 83 yo [place]an-speaking woman with history of dementia, hypertension, dyslipidemia, severe MR and aortic stenosis, arrhythmia who presents with ACS and multi-vessel coronary artery disease. #Acute WI- STEMI with LBBB - patient had cardiac cath on 12/28, found with: Severe 2 vessel CAD, LAD and RCA, LAD is culprit with francine 2 flow, and cardiomyopathy with LVEF 35%. Again patient also with severe aortic regurgitation and at least moderate mitral regurgitation. - Continue, Lipitor, beta-geovanny, statin, Plavix and Imdur - Per cardiology team Dr. Alvarenga and CTS Dr. Freire, patient ideally would need 2 vessel CABG (GRAF-LAD and SVG-RCA) with aortic valve repair/replacement and possibly mitral valve repair - pending transfer to [facility] for high risk PCI to LAD and RCA, with possible staged TAVR for severe AI. Per cardiology team however, if unable to facilitate transfer, they stated they could perform PCI on the patient, and now given the symptoms occurring early this morning and presently occurring now, patient is on nitro drip and heparin drip, and awaiting possible procedure for this later today here at [facility], follow further cardiology recommendations on this #Acute CHF exacerbation -slowly improving - likely due to acute ischemic CAD/STEMI -status post nitro gtt - Continue NIPPV as needed for pulmonary edema. - Cautious loop diuresis, monitor BUN/creatinine levels #Bacteremia: 2 out of 2 bottles positive for coagulase-negative staph -Continue broad-spectrum antibiotics #WILLIAM: Creatinine today 2.3. Patient has adequate urine output. -Monitor, follow-up recommendations from renal consult -For now continue IV Lasix once a day, monitor urine output and BUN/creatinine levels -No CRISTINO or ARB at this time GI: PPI Critical care time spent in patient care today equals 45 minutes. Result Diagram: 01/04/19 0926 01/04/19 0434 Results 24hrs Laboratory Tests Test 01/03/19 12:39 01/03/19 17:17 01/03/19 21:24 01/04/19 04:34 Bedside Glucose 150 113 143 White Blood Count 14.3 #H Red Blood Count 3.00 L Hemoglobin 8.8 L Hematocrit 29.0 L Mean Corpuscular 96.7 Volume Mean Corpuscular 29.3 Hemoglobin Mean Corpuscular 30.3 L Hemoglobin Concen t Red Cell 16.6 H Distribution Width Platelet Count 337 Mean Platelet 9.9 Volume Immature 0.600 H Granulocytes % Neutrophils % 82.5 H Lymphocytes % 10.6 L Monocytes % 3.7 Eosinophils % 2.2 Basophils % 0.4 Nucleated Red 0.0 Blood Cells % Immature 0.090 H Granulocytes # Neutrophils # 11.8 H Lymphocytes # 1.5 Monocytes # 0.5 Eosinophils # 0.3 Basophils # 0.1 Nucleated Red 0.0 Blood Cells # Sodium Level 145 H Potassium Level 4.2 Chloride Level 110 Carbon Dioxide 26 Level Anion Gap 9 Blood Urea 56 H Nitrogen Creatinine 2.01 H Est Glomerular Filtrat Rate mL/min Glucose Level 123 Calcium Level 8.7 Phosphorus Level 4.5 Magnesium Level 2.7 H Creatine Kinase 33 Creatine Kinase 1.7 Index Creatinine Kinase 0.55 MB (Mass) Troponin I 1.320 *H Test 01/04/19 05:00 01/04/19 05:12 01/04/19 08:14 01/04/19 09:26 Blood Gas Blood arterial Specimen Source Arterial Blood 01/04/2019 5:05:0 Date Drawn 1 AM Arterial Blood pH 7.387 (Temp corrected) Arterial Blood 43.9 pCO2 (Temp correct) Arterial Blood 85.4 pO2 (Temp corrected) Arterial Blood 25.8 HCO3 Arterial Blood 0.6 Base Excess Arterial Blood 94.8 L Oxygen Saturation Francis Test N/A Arterial Blood Right Radial Gas Puncture Site Arterial 0.3 Blood Carboxyhemo globin Arterial Blood 0.1 Methemoglobin Blood Gas A-a O2 76.9 H Differential Oxyhemoglobin 94.4 Percent Blood Gas 37.0 Temperature Blood Gas NASAL CANNULA Modality FiO2 30.0 Blood Gas UP Notified Whom Blood Gas 01/04/2019 5:19:0 Notified Time 5 AM Bedside Glucose 167 135 White Blood Count 15.1 H Red Blood Count 2.88 L Hemoglobin 8.7 L Hematocrit 28.5 L Mean Corpuscular 99.0 Volume Mean Corpuscular 30.2 Hemoglobin Mean Corpuscular 30.5 L Hemoglobin Concen t Red Cell 16.3 H Distribution Width Platelet Count 314 Mean Platelet 9.8 Volume Immature 0.600 H Granulocytes % Neutrophils % 86.0 H Lymphocytes % 9.5 L Monocytes % 2.9 Eosinophils % 0.6 Basophils % 0.4 Nucleated Red 0.0 Blood Cells % Immature 0.090 H Granulocytes # Neutrophils # 13.0 H Lymphocytes # 1.4 Monocytes # 0.4 Eosinophils # 0.1 Basophils # 0.1 Nucleated Red 0.0 Blood Cells # Prothrombin Time 15.1 H Prothrombin Time 1.2 Ratio INR International 1.18 Normalized Ratio Activated 33.2 Partial Thrombopl ast Time Exam/Review of Systems Exam Vitals Vital Signs Date Temp Pulse Resp B/P (MAP) Pulse Ox O2 O2 Flow FiO2 Time Delivery Rate 01/04/19 81 08:00 01/04/19 18 111/48 96 06:30 (69) 01/04/19 Nasal 06:00 Cannula 01/04/19 50 05:52 01/04/19 98.8 2.0 04:00 Intake and Output 01/03/19 01/03/19 01/04/19 1515:00 23:00 07:00 IntakeIntake Total 370 ml 320 ml 253.5 ml OutputOutput Total 770 ml 370 ml 260 ml BalanceBalance -400 ml -50 ml -6.5 ml Results Results 24hrs Laboratory Tests Test 01/03/19 12:39 01/03/19 17:17 01/03/19 21:24 01/04/19 04:34 Bedside Glucose 150 113 143 White Blood Count 14.3 #H Red Blood Count 3.00 L Hemoglobin 8.8 L Hematocrit 29.0 L Mean Corpuscular 96.7 Volume Mean Corpuscular 29.3 Hemoglobin Mean Corpuscular 30.3 L Hemoglobin Concen t Red Cell 16.6 H Distribution Width Platelet Count 337 Mean Platelet 9.9 Volume Immature 0.600 H Granulocytes % Neutrophils % 82.5 H Lymphocytes % 10.6 L Monocytes % 3.7 Eosinophils % 2.2 Basophils % 0.4 Nucleated Red 0.0 Blood Cells % Immature 0.090 H Granulocytes # Neutrophils # 11.8 H Lymphocytes # 1.5 Monocytes # 0.5 Eosinophils # 0.3 Basophils # 0.1 Nucleated Red 0.0 Blood Cells # Sodium Level 145 H Potassium Level 4.2 Chloride Level 110 Carbon Dioxide 26 Level Anion Gap 9 Blood Urea 56 H Nitrogen Creatinine 2.01 H Est Glomerular Filtrat Rate mL/min Glucose Level 123 Calcium Level 8.7 Phosphorus Level 4.5 Magnesium Level 2.7 H Creatine Kinase 33 Creatine Kinase 1.7 Index Creatinine Kinase 0.55 MB (Mass) Troponin I 1.320 *H Test 01/04/19 05:00 01/04/19 05:12 01/04/19 08:14 01/04/19 09:26 Blood Gas Blood arterial Specimen Source Arterial Blood 01/04/2019 5:05:0 Date Drawn 1 AM Arterial Blood pH 7.387 (Temp corrected) Arterial Blood 43.9 pCO2 (Temp correct) Arterial Blood 85.4 pO2 (Temp corrected) Arterial Blood 25.8 HCO3 Arterial Blood 0.6 Base Excess Arterial Blood 94.8 L Oxygen Saturation Francis Test N/A Arterial Blood Right Radial Gas Puncture Site Arterial 0.3 Blood Carboxyhemo globin Arterial Blood 0.1 Methemoglobin Blood Gas A-a O2 76.9 H Differential Oxyhemoglobin 94.4 Percent Blood Gas 37.0 Temperature Blood Gas NASAL CANNULA Modality FiO2 30.0 Blood Gas UP Notified Whom Blood Gas 01/04/2019 5:19:0 Notified Time 5 AM Bedside Glucose 167 135 White Blood Count 15.1 H Red Blood Count 2.88 L Hemoglobin 8.7 L Hematocrit 28.5 L Mean Corpuscular 99.0 Volume Mean Corpuscular 30.2 Hemoglobin Mean Corpuscular 30.5 L Hemoglobin Concen t Red Cell 16.3 H Distribution Width Platelet Count 314 Mean Platelet 9.8 Volume Immature 0.600 H Granulocytes % Neutrophils % 86.0 H Lymphocytes % 9.5 L Monocytes % 2.9 Eosinophils % 0.6 Basophils % 0.4 Nucleated Red 0.0 Blood Cells % Immature 0.090 H Granulocytes # Neutrophils # 13.0 H Lymphocytes # 1.4 Monocytes # 0.4 Eosinophils # 0.1 Basophils # 0.1 Nucleated Red 0.0 Blood Cells # Prothrombin Time 15.1 H Prothrombin Time 1.2 Ratio INR International 1.18 Normalized Ratio Activated 33.2 Partial Thrombopl ast Time Medications Medication Current Medications IV Flush (NS 3 ml) 3 ml PER PROTOCOL IV ; Start 12/28/18 at 04:30 Ondansetron HCl (Zofran Inj) 4 mg Q6H PRN IV NAUSEA/VOMITING Last administered on 01/04/19at 08:54; Admin Dose 4 MG; Start 12/28/18 at 04:30 Aspirin (Aspirin) 81 mg DAILY PO Last administered on 01/04/19at 08:54; Admin Dose 81 MG; Start 12/28/18 at 09:00 Nitroglycerin (Nitroglycerin (Sl Tab) 0.4 Mg) 1 tab Q5M PRN SL .CHEST PAIN Last administered on 01/03/19at 08:02; Admin Dose 1 TAB; Start 12/28/18 at 04:30 Diagnostic Test (Pha) (Accu-Chek) 1 ea 02 XX Last administered on 12/31/18at 01:0 1; Admin Dose 1 EA; Start 12/29/18 at 02:00 Miscellaneous Information 1 ea NOTE XX ; Start 12/28/18 at 05:00 Glucose (Glutose) 15 gm Q15M PRN PO DECREASED GLUCOSE; Start 12/28/18 at 05:00 Glucose (Glutose) 22.5 gm Q15M PRN PO DECREASED GLUCOSE; Start 12/28/18 at 05:00 Dextrose (D50w Syringe) 25 ml Q15M PRN IV DECREASED GLUCOSE; Start 12/28/18 at 05:00 Dextrose (D50w Syringe) 50 ml Q15M PRN IV DECREASED GLUCOSE; Start 12/28/18 at 05:00 Glucagon (Glucagen) 1 mg Q15M PRN IM DECREASED GLUCOSE; Start 12/28/18 at 05:00 Glucose (Glutose) 15 gm Q15M PRN BUCCAL DECREASED GLUCOSE; Start 12/28/18 at 05:00 Atorvastatin Calcium (Lipitor) 80 mg HS PO Last administered on 01/03/19at 21:20; Admin Dose 80 MG; Start 12/29/18 at 21:00 Phenol (Cepastat Lozenge) 1 lozenge Q1H PRN MT COUGH Last administered on 13:05; Admin Dose 1 LOZENGE; Start 12/28/18 at 17:30 Vancomycin HCl (Vanco Iv Per Pharmacy) VANCOMYCIN PER PHARMACY PER PROTOCOL XX ; Start 12/29/18 at 05:30 Escitalopram Oxalate (Lexapro) 10 mg DAILY PO Last administered on 01/03/19at 08:13; Admin Dose 10 MG; Start 12/29/18 at 09:30 Risedronate (Actonel) 35 mg Tu@AC BREAKFAST PO ; Start 12/30/18 at 07:00 Mirtazapine (Remeron) 15 mg HS PO Last administered on 01/03/19 21:20; Admin Dose 15 MG; Start 12/29/18 at 21:00 Pantoprazole (Protonix Tab) 40 mg DAILY@06 PO Last administered on 01/04/19 05:27; Admin Dose 40 MG; Start 12/30/18 at 06:00 Docusate Sodium (Colace) 100 mg BID PO Last administered on 01/03/19 21:20; Admin Dose 100 MG; Start 12/29/18 at 18:30 Nitroglycerin/ Dextrose 250 ml @ 1.5 mls/hr TITRATE IV Last administered on 01/04/19at 03:42; Admin Dose 1.5 MLS/HR; Start 12/31/18 at 23:00 Vancomycin HCl 250 ml @ 125 mls/hr Q48H IVPB Last administered on 01/03/19at 06:05; Admin Dose 125 MLS/HR; Start 01/03/19 at 06:00 Carvedilol (Coreg) 12.5 mg BID PO Last administered on 01/04/19 08:55; Admin Dose 12.5 MG; Start 01/02/19 at 09:00 Clopidogrel Bisulfate (plaVIX) 75 mg DAILY PO Last administered on 01/04/19 09:00; Admin Dose 75 MG; Start 01/03/19 at 09:00 Isosorbide Mononitrate (Imdur) 30 mg DAILY PO Last administered on 01/03/19 08:13; Admin Dose 30 MG; Start 01/02/19 at 09:00 Furosemide (Lasix) 40 mg DAILY IV Last administered on 01/04/19 08:54; Admin Dose 40 MG; Start 01/03/19 at 09:00 Insulin Aspart (Novolog Insulin Pen) NOVOLOG *MODERATE* ALGORITHM WITH MEALS BEDTIME SC ; Start 01/02/19 at 21:00 Ranolazine (Ranexa) 1,000 mg Q12 PO Last administered on 01/04/19 09:00; Admin Dose 1,000 MG; Start 01/03/19 at 13:30 Piperacillin Sod/ Tazobactam Sod 50 ml @ 100 mls/hr Q8 IVPB Last administered on 01/04/19 05:27; Admin Dose 100 MLS/HR; Start 01/03/19 at 22:00 Heparin Sodium (Porcine) (Heparin (1000 Units/ml)) 4,000 unit PER PROTOCOL PRN IV aPTT<47; Start 01/04/19 at 09:30 Heparin Sodium (Porcine) 250 ml @ 0 mls/hr PER PROTOCOL IV Last administered on 01/04/19 09:37; Admin Dose 8.5 MLS/HR; Start 01/04/19 at 09:30 KRYSTAL BERNARD January 04, 2019 12:10
[2019-01-04] MEDS ORDERED: LIDOCAINE 1% (MDV) 20 ML INJ ONE (13:41)
[2019-01-04] MEDS ORDERED: VERAPAMIL 5 MG INJ ONE (13:41)
[2019-01-04] MEDS ORDERED: NITROGLYCERIN (IC) 100 MCG/ML INJ ONE (13:41)
[2019-01-04] MEDS ORDERED: MIDAZOLAM 1 MG/ML 2 ML INJ ONE (14:08)
--- NOTE | 2019-01-04 14:08 | CONS ---
Consult Date/Type/Reason Admit Date/Time December 28, 2018 at 03:23 Initial Consult Date 01/03/19 Type of Consultation: Pulm/CCM Requesting Provider: KRYSTAL BERNARD Date/Time of Note DATE: 01/04/19 TIME: 14:04 Subjective Patient with recurrent chest pain last pm and this morning on NTG gtt. Now going to cath lab radiology technician for [facility]. Objective Vitals Vital Signs Date Temp Pulse Resp B/P (MAP) Pulse Ox O2 O2 Flow FiO2 Time Delivery Rate 01/04/19 74 22 109/42 96 12:30 (64) 01/04/19 97.7 12:15 01/04/19 Nasal 5.0 08:00 Cannula 01/04/19 50 05:52 Intake and Output 01/03/19 01/03/19 01/04/19 1515:00 23:00 07:00 IntakeIntake Total 370 ml 320 ml 382.5 ml OutputOutput Total 770 ml 370 ml 290 ml BalanceBalance -400 ml -50 ml 92.5 ml Exam HEENT: Neck supple; no JVD; no LAD CVS: RRR, S1 and S2, II/ sys and diastolic murmur CHEST: Clear ABD: Soft, NT, + BS EXT: No c/c; trace LE edema Results/Medications Result Diagram: 01/04/19 0926 01/04/19 0434 Results 24 hrs Laboratory Tests Test 01/03/19 17:17 01/03/19 21:24 01/04/19 04:34 01/04/19 05:00 Bedside Glucose 113 143 White Blood Count 14.3 #H Red Blood Count 3.00 L Hemoglobin 8.8 L Hematocrit 29.0 L Mean Corpuscular 96.7 Volume Mean Corpuscular 29.3 Hemoglobin Mean Corpuscular 30.3 L Hemoglobin Concen t Red Cell 16.6 H Distribution Width Platelet Count 337 Mean Platelet 9.9 Volume Immature 0.600 H Granulocytes % Neutrophils % 82.5 H Lymphocytes % 10.6 L Monocytes % 3.7 Eosinophils % 2.2 Basophils % 0.4 Nucleated Red 0.0 Blood Cells % Immature 0.090 H Granulocytes # Neutrophils # 11.8 H Lymphocytes # 1.5 Monocytes # 0.5 Eosinophils # 0.3 Basophils # 0.1 Nucleated Red 0.0 Blood Cells # Sodium Level 145 H Potassium Level 4.2 Chloride Level 110 Carbon Dioxide 26 Level Anion Gap 9 Blood Urea 56 H Nitrogen Creatinine 2.01 H Est Glomerular Filtrat Rate mL/min Glucose Level 123 Calcium Level 8.7 Phosphorus Level 4.5 Magnesium Level 2.7 H Creatine Kinase 33 Creatine Kinase 1.7 Index Creatinine Kinase 0.55 MB (Mass) Troponin I 1.320 *H Blood Gas Blood arterial Specimen Source Arterial Blood 01/04/2019 5:05:0 Date Drawn 1 AM Arterial Blood pH 7.387 (Temp corrected) Arterial Blood 43.9 pCO2 (Temp correct) Arterial Blood 85.4 pO2 (Temp corrected) Arterial Blood 25.8 HCO3 Arterial Blood 0.6 Base Excess Arterial Blood 94.8 L Oxygen Saturation Francis Test N/A Arterial Blood Right Radial Gas Puncture Site Arterial 0.3 Blood Carboxyhemo globin Arterial Blood 0.1 Methemoglobin Blood Gas A-a O2 76.9 H Differential Oxyhemoglobin 94.4 Percent Blood Gas 37.0 Temperature Blood Gas NASAL CANNULA Modality FiO2 30.0 Blood Gas UP Notified Whom Blood Gas 01/04/2019 5:19:0 Notified Time 5 AM Test 01/04/19 05:12 01/04/19 08:14 01/04/19 09:26 01/04/19 12:28 Bedside Glucose 167 135 123 White Blood Count 15.1 H Red Blood Count 2.88 L Hemoglobin 8.7 L Hematocrit 28.5 L Mean Corpuscular 99.0 Volume Mean Corpuscular 30.2 Hemoglobin Mean Corpuscular 30.5 L Hemoglobin Concen t Red Cell 16.3 H Distribution Width Platelet Count 314 Mean Platelet 9.8 Volume Immature 0.600 H Granulocytes % Neutrophils % 86.0 H Lymphocytes % 9.5 L Monocytes % 2.9 Eosinophils % 0.6 Basophils % 0.4 Nucleated Red 0.0 Blood Cells % Immature 0.090 H Granulocytes # Neutrophils # 13.0 H Lymphocytes # 1.4 Monocytes # 0.4 Eosinophils # 0.1 Basophils # 0.1 Nucleated Red 0.0 Blood Cells # Prothrombin Time 15.1 H Prothrombin Time 1.2 Ratio INR International 1.18 Normalized Ratio Activated 33.2 Partial Thrombopl ast Time Home Meds Reported Medications Atenolol* (Atenolol*) 25 Mg Tablet, 25 MG PO DAILY, #30 TAB 12/29/18 Icosapent Ethyl (VASCEPA) 1 Gm Capsule, 2 GM PO BID, CAP 12/29/18 Linagliptin (TRADJENTA) 5 Mg Tablet, 5 MG PO DAILY, TAB 12/29/18 Risedronate* (Actonel*) 35 Mg Tablet, 35 MG PO Q7D, #4 TAB 12/29/18 Dexlansoprazole (Dexilant) 60 Mg Cap., 60 MG PO DAILY, #30 CAP 12/29/18 Fenofibrate Nanocrystallized* (Fenofibrate*) 145 Mg Tablet, 145 MG PO DAILY, TAB 12/29/18 Rosuvastatin Calcium* (Crestor*) 40 Mg Tablet, 40 MG PO QHS, #30 TAB 12/29/18 Escitalopram Oxalate* (Lexapro*) 10 Mg Tablet, 10 MG PO DAILY, #30 TAB 12/29/18 Mirtazapine* (Mirtazapine*) 15 Mg Tablet, 15 MG PO HS, TAB 12/29/18 Tramadol Hcl* (Ultram*) 50 Mg Tablet, 50 MG PO Q6H PRN for PAIN, TAB 12/29/18 Furosemide* (Furosemide*) 40 Mg Tablet, 40 MG PO DAILY, TAB 12/29/18 Allopurinol* (Allopurinol*) 300 Mg Tablet, 300 MG PO DAILY, TAB 12/29/18 Folic Acid* (Folic Acid*) 1 Mg Tablet, 1 MG PO DAILY, TAB 12/29/18 Ergocalciferol (Vitamin D2) (VITAMIN D2) 50,000 Unit Capsule, 25710 UNIT PO ONCE A WEEK, CAP 12/29/18 Ferrous Sulfate* (Ferrous Sulfate*) 325 Mg Tabec, 325 MG PO TID, TAB 12/29/18 Hydralazine Hcl* (Apresoline*) 50 Mg Tab, 50 MG PO TID, #90 TAB 12/29/18 Medications Current Medications IV Flush (NS 3 ml) 3 ml PER PROTOCOL IV ; Start 12/28/18 at 04:30 Ondansetron HCl (Zofran Inj) 4 mg Q6H PRN IV NAUSEA/VOMITING Last administered on 01/04/19at 08:54; Admin Dose 4 MG; Start 12/28/18 at 04:30 Aspirin (Aspirin) 81 mg DAILY PO Last administered on 01/04/19at 08:54; Admin Dose 81 MG; Start 12/28/18 at 09:00 Nitroglycerin (Nitroglycerin (Sl Tab) 0.4 Mg) 1 tab Q5M PRN SL .CHEST PAIN Last administered on 01/03/19at 08:02; Admin Dose 1 TAB; Start 12/28/18 at 04:30 Diagnostic Test (Pha) (Accu-Chek) 1 ea 02 XX Last administered on 12/31/18at 01:01; Admin Dose 1 EA; Start 12/29/18 at 02:00 Miscellaneous Information 1 ea NOTE XX ; Start 12/28/18 at 05:00 Glucose (Glutose) 15 gm Q15M PRN PO DECREASED GLUCOSE; Start 12/28/18 at 05:00 Glucose (Glutose) 22.5 gm Q15M PRN PO DECREASED GLUCOSE; Start 12/28/18 at 05:00 Dextrose (D50w Syringe) 25 ml Q15M PRN IV DECREASED GLUCOSE; Start 12/28/18 at 05:00 Dextrose (D50w Syringe) 50 ml Q15M PRN IV DECREASED GLUCOSE; Start 12/28/18 at 05:00 Glucagon (Glucagen) 1 mg Q15M PRN IM DECREASED GLUCOSE; Start 12/28/18 at 05:00 Glucose (Glutose) 15 gm Q15M PRN BUCCAL DECREASED GLUCOSE; Start 12/28/18 at 05:00 Atorvastatin Calcium (Lipitor) 80 mg HS PO Last administered on 01/03/19at 21:20; Admin Dose 80 MG; Start 12/29/18 at 21:00 Phenol (Cepastat Lozenge) 1 lozenge Q1H PRN MT COUGH Last administered on 01/03/19at 13:05; Admin Dose 1 LOZENGE; Start 12/28/18 at 17:30 Vancomycin HCl (Vanco Iv Per Pharmacy) VANCOMYCIN PER PHARMACY PER PROTOCOL XX ; Start 12/29/18 at 05:30 Escitalopram Oxalate (Lexapro) 10 mg DAILY PO Last administered on 01/03/19at 08:13; Admin Dose 10 MG; Start 12/29/18 at 09:30 Risedronate (Actonel) 35 mg Tu@AC BREAKFAST PO ; Start 12/30/18 at 07:00 Mirtazapine (Remeron) 15 mg HS PO Last administered on 01/03/19at 21:20; Admin Dose 15 MG; Start 12/29/18 at 21:00 Pantoprazole (Protonix Tab) 40 mg DAILY@06 PO Last administered on 01/04/19 05:27; Admin Dose 40 MG; Start 12/30/18 at 06:00 Docusate Sodium (Colace) 100 mg BID PO Last administered on 01/03/19 21:20; Admin Dose 100 MG; Start 12/29/18 at 18:30 Nitroglycerin/ Dextrose 250 ml @ 1.5 mls/hr TITRATE IV Last administered on 01/04/19 03:42; Admin Dose 1.5 MLS/HR; Start 12/31/18 at 23:00 Vancomycin HCl 250 ml @ 125 mls/hr Q48H IVPB Last administered on 01/03/19 06:05; Admin Dose 125 MLS/HR; Start 01/03/19 at 06:00 Carvedilol (Coreg) 12.5 mg BID PO Last administered on 01/04/19 08:55; Admin Dose 12.5 MG; Start 01/02/19 at 09:00 Clopidogrel Bisulfate (plaVIX) 75 mg DAILY PO Last administered on 01/04/19 09:00; Admin Dose 75 MG; Start 01/03/19 at 09:00 Isosorbide Mononitrate (Imdur) 30 mg DAILY PO Last administered on 01/03/19 08:13; Admin Dose 30 MG; Start 01/02/19 at 09:00 Furosemide (Lasix) 40 mg DAILY IV Last administered on 01/04/19 08:54; Admin Dose 40 MG; Start 01/03/19 at 09:00 Insulin Aspart (Novolog Insulin Pen) NOVOLOG *MODERATE* ALGORITHM WITH MEALS BEDTIME SC ; Start 01/02/19 at 21:00 Ranolazine (Ranexa) 1,000 mg Q12 PO Last administered on 01/04/19 09:00; Admin Dose 1,000 MG; Start 01/03/19 at 13:30 Piperacillin Sod/ Tazobactam Sod 50 ml @ 100 mls/hr Q8 IVPB Last administered on 01/04/19 05:27; Admin Dose 100 MLS/HR; Start 01/03/19 at 22:00 Heparin Sodium (Porcine) (Heparin (1000 Units/ml)) 4,000 unit PER PROTOCOL PRN IV aPTT<47; Start 01/04/19 at 09:30 Heparin Sodium (Porcine) 250 ml @ 0 mls/hr PER PROTOCOL IV Last administered on 01/04/19at 09:37; Admin Dose 8.5 MLS/HR; Start 01/04/19 at 09:30 Miscellaneous Information (*Rx Drug Level Order Reminder*) VANCO TROUGH ON 12/24... 0500 ONCE XX ; Start 01/05/19 at 05:00; Stop 01/05/19 at 05:01 Assessment/Plan Assessment/Plan (Daily) IMP: 1. s/p Acute OR--now with unstable angina 2. CHF 3. Hypercapnic Resp Insufficiency 4. Severe CAD 5. Bacteremia 6. Acute and CKD 7. Possible aspiration pneumonia RECS: 1. Continue diuresis, particularly as creatinine is improving 2. Follow I/O's and renal function 3. Aspiration precautions 4. BiPAP prn 5. Continue NTG gtt 6. To cath lab radiology technician as per Cards 7. Abx as per ID 8. Am CXR/ABG 35 min cc time ADIEL RAYMOND MD January 04, 2019 14:08
[2019-01-04] MEDS ORDERED: BIVALIRUDIN 250MG /NS 50 ML 50 ML IVPB ONE (14:24)
[2019-01-04] MEDS ORDERED: SOD CHLORIDE 0.9% 1,000 ML ONE (14:27)
[2019-01-04] MEDS ORDERED: NORepinephrine 8MG/250 ML (PMX 250 ML ONE (14:29)
[2019-01-04] MEDS ORDERED: SOD CHLORIDE 0.9% 1,000 ML IV SCH (14:48)
[2019-01-04] MEDS ORDERED: CLOPIDOGREL 300 MG TAB ONE (14:49)
[2019-01-04] MEDS ORDERED: FUROSEMIDE 40 MG INJ ONE (14:51)
--- NOTE | 2019-01-04 14:56 | OPR ---
Date/Time of Note Date/Time of Note DATE: 01/04/19 TIME: 14:50 Operative Report Procedure Date: January 04, 2019 Preoperative Diagnosis NSTEMI Postoperative Diagnosis same Operation/Procedure Performed urgent PCI LAD Surgeon see signature line Obgyn Hospitalist Physician raúl Anesthesia Type: moderate sedation Estimated Blood Loss: minimal Transfusion none Specimen none Grafts/Implants none Complications none Procedure Description Nurse Extern: Karely Cantu MD Indication: 83-year-old female who presented with acute ID a week ago. Patient underwent diagnostic angiography and at that time was referred for possible bypass surgery as well as valve replacement. However patient was evaluated by CT surgery was felt to be too high risk for surgery. She was referred and advised to be transferred to higher level of care to [facility]. She has been ICU on nitroglycerin drip and heparin drip and continues to have recurrent chest pain. Patient has not been able to be transferred for higher level of care procedures for high risk PCI. After multiple discussion with the patient and the family including her it was decided to perform PCI of her complex LAD lesion urgently. Procure performed: #1 left heart catheterization and selective left coronary angiogram #2 Right femoral angiogram 3. Successful PTCA and stenting of proximal left anterior descending artery using a 3 x 20 mm Synergy drug-eluting stent 4. Moderate sedation for more than 60 minutes Findings: 1. Left main: is large with about 20% distal stenosis. 2. LAD: The small and does not go around the apex. Has 90 % stenosis at proximal LAD at the solid top of a very aneurysmal disease ---> 0% PCI. Mid to distal LAD is very small does not go around the apex. Diagonal is peak however. 3. Left circumflex artery: is nondominant large.. it has 30% ostial stenosis 4. LV EDP is elevated at 32 mmHg Procedure in detail: Written informed consent with obtained after risks benefits and alternatives discussed with the patient in detail. risks including but not limited to risk of infection vascular complications, bleeding complications, ID stroke arrhythmia renal failure at even were discussed with the patient in detail. Patient was brought into the cardiac construction laborer and placed in supine position. Right and left groin area was prepped and draped in regular sterile fashion and then he was in anesthetized using 1% lidocaine. Right femoral artery was cannulated and using modified seldinger technique a 6 Georgian sheath was placed in the femoral artery. Femoral angiogram was performed Then a pigtail was advanced to engage the left ventricle hemodynamics as recorded by pullback aortic pressure was measured. At this time we decided to perform PCI of the anterior descending artery. A voided 3-1/2 guiding catheter was advanced to engage the main coronary artery. BMW wire was used and advanced across the lesion and placed distal to the lesion into the diagonal. Another BMW wires were used and advanced placed distal LAD.. I used a 2.5 x 12 mm balloon which was placed across the lesion and predilated the vessel both at the proximal LAD as well as mid LAD and ostium of the diagonal.. Then I used a 3 x 20 mm Synergy drug-eluting stent which was placed across the lesion at the proximal LAD just short of bifurcation into the diagonal and deployed at 12 [place]. It was decided not to stented mid to distal LAD since the SHERIN-3 flow was noted and did not want to jeopardize a large diagonal Final angiographic view was obtained which showed SHERIN-3 flow no evidence of dissection and no significant residual stenosis at the site of the stent. due to concern about patient's infection risk, it was decided not to close the femoral artery and pulled the sheath in 2 hours Patient tolerated the procedure well with no complication. Patient is to be transferred to ICU in stable condition. contrast used: 40 cc Visipaque Conclusions: Successful PTCA stenting of the external left anterior descending artery from 90% stenosis to no significant residual stenosis using a 3 x 20 mm Synergy drug-eluting stent. Recommendations: Aggressive medical therapy. aspirin indefinitely dual antiplatlet therapy with being on Plavix ICU care KARELY CANTU MD [facility] KARELY CANTU MD January 04, 2019 14:56
[2019-01-04] MEDS ORDERED: ATROPINE 1 MG/10 ML SYRINGE ONE (17:18)
[2019-01-04] MEDS: MIRTAZAPINE 15 MG TAB PO SCH (20:20)
[2019-01-04] MEDS: ATORVASTATIN 80 MG TAB PO SCH (20:20)
[2019-01-05] VITALS (47 sets, daily range): BP systolic 96–125; BP diastolic 37–102; PULSE 76–102; RESP 12–36
[2019-01-05] MEDS: morphine 2 MG INJ IV PRN ×3 (01:10→19:53)
[2019-01-05] MEDS: ACCU-CHEK XX SCH (01:27)
[2019-01-05] MEDS: PIPER-TAZO 2.25 GM (PMX) 50 ML IVPB SCH ×3 (05:20→21:56)
[2019-01-05] MEDS: PANTOPRAZOLE (EC) 40 MG TAB PO SCH (05:20)
[2019-01-05] MEDS: VANCOMYCIN 1 GM 250 ML IVPB SCH (06:05)
[2019-01-05] MEDS: NITROGLYCERIN (SL) 0.4 MG TAB SL PRN ×2 (06:43→20:01)
[2019-01-05] MEDS: INSULIN ASPART [NOVOLOG] 3 ML PEN SC SCH ×4 (07:35→21:00)
[2019-01-05] MEDS: ISOSORBIDE MONONITRATE(SR)30 MG TAB PO SCH (08:41)
[2019-01-05] MEDS: ASPIRIN 81 MG TAB PO SCH (08:41)
[2019-01-05] MEDS: FUROSEMIDE 40 MG INJ IV SCH (08:41)
[2019-01-05] MEDS: RANOLAZINE (SR) 500 MG TAB PO SCH ×2 (08:42→21:54)
[2019-01-05] MEDS: ESCITALOPRAM 10 MG TAB PO SCH (08:42)
[2019-01-05] MEDS: DOCUSATE SODIUM 100 MG CAP PO SCH ×2 (08:42→21:54)
[2019-01-05] MEDS: CLOPIDOGREL 75 MG TAB PO SCH (08:42)
--- NOTE | 2019-01-05 09:24 | PN ---
Date/Time of Note Date/Time of Note DATE: 01/05/19 TIME: 09:15 Assessment/Plan VTE Prophylaxis Risk score (from Ns)>0 risk: 10 SCD applied (from Ns): Yes Pharmacological prophylaxis: NA/contraindicated Pharm contraindication: other (per cardiology) Lines/Catheters IV Catheter Type ([facility] Peripheral IV Urinary Cath still in place: Yes Reason Cath still needed: pres ulcer contaminated by urine Assessment/Plan Assessment/Plan 83 yo Cuban-speaking woman with history of dementia, hypertension, dyslipidemia, severe MR and aortic stenosis, arrhythmia who presents with ACS and multi-vessel coronary artery disease. #Acute PA #CAD - STEMI with LBBB - patient had cardiac cath on 12/28, found with: Severe 2 vessel CAD, LAD and RCA, LAD is culprit with francine 2 flow, and cardiomyopathy with LVEF 35%. Again patient also with severe aortic regurgitation and at least moderate mitral regurgitation. - Continue, Lipitor, beta-geovanny, statin, Plavix and Imdur - Per cardiology team Dr. Alvarenga and CTS Dr. Freire, patient ideally would need 2 vessel CABG (GRAF-LAD and SVG-RCA) with aortic valve repair/replacement and possibly mitral valve repair, was pending transfer to [facility] for high risk PCI to LAD and RCA, with possible staged TAVR for severe AI. - However due to acute decompensation she was taken for cath on 01/04 and got PCI to prox LAD. - Cardiology and CT surgery following. Will determine if still needs transfer for TAVR. #Acute CHF exacerbation -slowly improving - likely due to acute ischemic CAD/STEMI -status post nitro gtt - Continue NIPPV as needed for pulmonary edema. - Cautious loop diuresis, monitor BUN/creatinine levels #Bacteremia: 2 out of 2 bottles positive for coagulase-negative staph -Continue broad-spectrum antibiotics - May be due to pneumonia. Patchy lung infiltrates not completely consistent with pulmonary edema. - Will continue vanco as well as zosyn (even though staph is resistant) because there may be other gram negatives sensitive to it which didn't grow out in blood cultures. #WILLIAM: Patient has adequate urine output. -Monitor, follow-up recommendations from renal consult -For now continue IV Lasix once a day, monitor urine output and BUN/creatinine levels -No CRISTINO or ARB at this time GI: PPI Critical care time spent in patient care today equals 45 minutes. Result Diagram: 01/05/19 0504 01/05/19 0504 Subjective 24 Hr Interval Summary Free Text/Dictation The patient developed worsening heart failure symptoms and was taken to center medical and lab director yesterday. Had PCI to proximal LAD. This morning oxygenation improved; saturating 93% on 4L NC. CXR still shows infiltrates and edema with some improvement. Had conversation with patient and using video strike plate attacher; updated them on the situation. Exam/Review of Systems Exam Vitals Vital Signs Date Temp Pulse Resp B/P (MAP) Pulse Ox O2 O2 Flow FiO2 Time Delivery Rate 01/05/19 78 22 109/40 94 08:30 (63) 01/05/19 98.2 BIPAP 08:00 01/05/19 50 06:27 01/05/19 7.0 02:00 Intake and Output 01/04/19 01/04/19 01/05/19 1515:00 23:00 07:00 IntakeIntake Total 115.0 ml 625 ml 528 ml OutputOutput Total 585 ml 415 ml 290 ml BalanceBalance -470.0 ml 210 ml 238 ml Exam Gen: Frail appearing elderly woman lying in bed, no acute distress HEENT: PERRL, no icterus, moist mucous membranes, clear oropharynx Neck: Supple, no JVD. Card: Regular rate and rhythm, no murmurs appreciated Pulm: Distant breath sounds bilaterally Abd: Soft, nontender, nondistended. Ext: No LE edema B/L. R groin angiogram site clean appearing, no bleeding or he matoma. Results Results 24hrs Laboratory Tests Test 01/04/19 09:26 01/04/19 12:28 01/04/19 17:30 01/04/19 20:19 White Blood Count 15.1 H Red Blood Count 2.88 L Hemoglobin 8.7 L Hematocrit 28.5 L Mean Corpuscular 99.0 Volume Mean Corpuscular 30.2 Hemoglobin Mean Corpuscular 30.5 L Hemoglobin Concen t Red Cell 16.3 H Distribution Width Platelet Count 314 Mean Platelet 9.8 Volume Immature 0.600 H Granulocytes % Neutrophils % 86.0 H Lymphocytes % 9.5 L Monocytes % 2.9 Eosinophils % 0.6 Basophils % 0.4 Nucleated Red 0.0 Blood Cells % Immature 0.090 H Granulocytes # Neutrophils # 13.0 H Lymphocytes # 1.4 Monocytes # 0.4 Eosinophils # 0.1 Basophils # 0.1 Nucleated Red 0.0 Blood Cells # Prothrombin Time 15.1 H Prothrombin Time 1.2 Ratio INR International 1.18 Normalized Ratio Activated 33.2 Partial Thrombopl ast Time Bedside Glucose 123 112 103 Test 01/05/19 05:00 01/05/19 05:04 01/05/19 08:45 Blood Gas Blood arterial Specimen Source Arterial Blood 01/05/2019 5:20:2 Date Drawn 2 AM Arterial Blood pH 7.380 (Temp corrected) Arterial Blood 37.4 pCO2 (Temp correct) Arterial Blood 99.0 H pO2 (Temp corrected) Arterial Blood 21.6 L HCO3 Arterial Blood -3.1 L Base Excess Arterial Blood 96.5 Oxygen Saturation Francis Test ACCEPTAB Arterial Blood Right Radial Gas Puncture Site Arterial 0.3 Blood Carboxyhemo globin Arterial Blood 0.3 Methemoglobin Blood Gas A-a O2 215.4 H Differential Oxyhemoglobin 95.9 Percent Blood Gas 37.0 Temperature Blood Gas 20.0 Respiration Rate Blood Gas Actual 20 Respiration Rate Blood Gas MASK - BIPAP Modality FiO2 50.0 Blood Gas 12 Pressure Support Blood Gas 20/8 IPAP/EPAP Ratio Blood Gas UP Notified Whom Blood Gas 01/05/2019 5:42:0 Notified Time 0 AM Creatine Kinase 34 Creatine Kinase 5.1 Index Creatinine Kinase 1.72 MB (Mass) Troponin I 1.500 *H White Blood Count 14.2 H Red Blood Count 2.58 L Hemoglobin 7.8 L Hematocrit 25.3 L Mean Corpuscular 98.1 Volume Mean Corpuscular 30.2 Hemoglobin Mean Corpuscular 30.8 L Hemoglobin Concen t Red Cell 16.6 H Distribution Width Platelet Count 320 Mean Platelet 10.0 Volume Immature 0.600 H Granulocytes % Neutrophils % 84.4 H Lymphocytes % 10.0 L Monocytes % 3.9 Eosinophils % 0.6 Basophils % 0.5 Nucleated Red 0.0 Blood Cells % Immature 0.090 H Granulocytes # Neutrophils # 12.0 H Lymphocytes # 1.4 Monocytes # 0.6 Eosinophils # 0.1 Basophils # 0.1 Nucleated Red 0.0 Blood Cells # Sodium Level 146 H Potassium Level 3.8 Chloride Level 110 Carbon Dioxide 21 Level Anion Gap 15 H Blood Urea 50 H Nitrogen Creatinine 1.93 H Est Glomerular Filtrat Rate mL/min Glucose Level 92 Lactic Acid Level 0.9 Calcium Level 8.2 L Phosphorus Level 4.7 Magnesium Level 2.4 Total Bilirubin 0.2 Direct Bilirubin 0.00 Indirect 0.2 Bilirubin Aspartate Amino 25 Transf (AST/SGOT) Alanine 22 Aminotransferase (ALT/SGPT) Alkaline 61 Phosphatase B-Type 54858 H Natriuretic Peptide Total Protein 5.7 L Albumin 3.1 L Globulin 2.60 Albumin/Globulin 1.19 Ratio Vancomycin Level 15.8 Trough Bedside Glucose 98 Medications Medication Current Medications IV Flush (NS 3 ml) 3 ml PER PROTOCOL IV ; Start 12/28/18 at 04:30 Ondansetron HCl (Zofran Inj) 4 mg Q6H PRN IV NAUSEA/VOMITING Last administered on 01/04/19at 08:54; Admin Dose 4 MG; Start 12/28/18 at 04:30 Aspirin (Aspirin) 81 mg DAILY PO Last administered on 01/05/19at 08:41; Admin Dose 81 MG; Start 12/28/18 at 09:00 Nitroglycerin (Nitroglycerin (Sl Tab) 0.4 Mg) 1 tab Q5M PRN SL .CHEST PAIN Last administered on 01/05/19at 06:43; Admin Dose 1 TAB; Start 12/28/18 at 04:30 Diagnostic Test (Pha) (Accu-Chek) 1 ea 02 XX Last administered on 12/31/18at 01:01; Admin Dose 1 EA; Start 12/29/18 at 02:00 Miscellaneous Information 1 ea NOTE XX ; Start 12/28/18 at 05:00 Glucose (Glutose) 15 gm Q15M PRN PO DECREASED GLUCOSE; Start 12/28/18 at 05:00 Glucose (Glutose) 22.5 gm Q15M PRN PO DECREASED GLUCOSE; Start 12/28/18 at 05:00 Dextrose (D50w Syringe) 25 ml Q15M PRN IV DECREASED GLUCOSE; Start 12/28/18 at 05:00 Dextrose (D50w Syringe) 50 ml Q15M PRN IV DECREASED GLUCOSE; Start 12/28/18 at 05:00 Glucagon (Glucagen) 1 mg Q15M PRN IM DECREASED GLUCOSE; Start 12/28/18 at 05:00 Glucose (Glutose) 15 gm Q15M PRN BUCCAL DECREASED GLUCOSE; Start 12/28/18 at 05:00 Atorvastatin Calcium (Lipitor) 80 mg HS PO Last administered on 01/04/19 20:20; Admin Dose 80 MG; Start 12/29/18 at 21:00 Phenol (Cepastat Lozenge) 1 lozenge Q1H PRN MT COUGH Last administered on 01/03/19 13:05; Admin Dose 1 LOZENGE; Start 12/28/18 at 17:30 Vancomycin HCl (Vanco Iv Per Pharmacy) VANCOMYCIN PER PHARMACY PER PROTOCOL XX ; Start 12/29/18 at 05:30 Escitalopram Oxalate (Lexapro) 10 mg DAILY PO Last administered on 01/05/19 08:42; Admin Dose 10 MG; Start 12/29/18 at 09:30 Risedronate (Actonel) 35 mg Tu@AC BREAKFAST PO ; Start 12/30/18 at 07:00 Mirtazapine (Remeron) 15 mg HS PO Last administered on 01/04/19 20:20; Admin Dose 15 MG; Start 12/29/18 at 21:00 Pantoprazole (Protonix Tab) 40 mg DAILY@06 PO Last administered on 01/05/19 05:20; Admin Dose 40 MG; Start 12/30/18 at 06:00 Docusate Sodium (Colace) 100 mg BID PO Last administered on 01/05/19 08:42; Admin Dose 100 MG; Start 12/29/18 at 18:30 Nitroglycerin/ Dextrose 250 ml @ 1.5 mls/hr TITRATE IV Last administered on 01/04/19 03:42; Admin Dose 1.5 MLS/HR; Start 12/31/18 at 23:00 Vancomycin HCl 250 ml @ 125 mls/hr Q48H IVPB Last administered on 01/05/19 06:05; Admin Dose 125 MLS/HR; Start 01/03/19 at 06:00 Carvedilol (Coreg) 12.5 mg BID PO Last administered on 01/05/19 08:42; Admin Dose 12.5 MG; Start 01/02/19 at 09:00 Clopidogrel Bisulfate (plaVIX) 75 mg DAILY PO Last administered on 01/05/19 08:42; Admin Dose 75 MG; Start 01/03/19 at 09:00 Isosorbide Mononitrate (Imdur) 30 mg DAILY PO Last administered on 01/05/19 08:41; Admin Dose 30 MG; Start 01/02/19 at 09:00 Furosemide (Lasix) 40 mg DAILY IV Last administered on 01/05/19 08:41; Admin Dose 40 MG; Start 01/03/19 at 09:00 Insulin Aspart (Novolog Insulin Pen) NOVOLOG *MODERATE* ALGORITHM WITH MEALS BEDTIME SC ; Start 01/02/19 at 21:00 Ranolazine (Ranexa) 1,000 mg Q12 PO Last administered on 01/05/19 08:42; Admin Dose 1,000 MG; Start 01/03/19 at 13:30 Piperacillin Sod/ Tazobactam Sod 50 ml @ 100 mls/hr Q8 IVPB Last administered on 01/05/19 05:20; Admin Dose 100 MLS/HR; Start 01/03/19 at 22:00 Miscellaneous Information (* Miscellaneous Pharmacy Order) Hold all Metformin ... ONCE XX Last administered on 01/04/19 15:43; Admin Dose 1 EA; Start 01/04/19 at 15:00; Stop 01/06/19 at 14:59 Morphine Sulfate (morphine) 1 mg Q1H PRN IV SEVERE PAIN LEVEL 7-10 Last administered on 01/05/19 05:26; Admin Dose 1 MG; Start 01/04/19 at 16:00 ANAM TOMPKINS MD January 05, 2019 09:24
--- NOTE | 2019-01-05 10:04 | CONS ---
Assessment/Plan Assessment/Plan Assessment/Plan (Daily) 1. Acute kidney injury on CKD III 2/2 Hemodynamics from CHF + NSTEMI 2. Hypokalemia 3. Hypernatremia 4. acute NSTEMI s/p LHC showed multivessel obstructive CAD - s/p Successful PTCA and stenting of proximal left anterior descending artery using a 3 x 20 mm Synergy drug-eluting stent on 01/04/19 5. CAD mulitivessels obstructive 6. Anemia of Chronic disease Plan: BUN/Cr improved slighlty to 50/1.93, other electrolytes stable s/p Successful PTCA and stenting of proximal left anterior descending artery using a 3 x 20 mm Synergy drug-eluting stent on 01/04/19 IV abx zosyn, renally dosed for bacteremia, renally dose all abx and monitor electrolytes IV lasix 40mg IV daily s/p LOUIE on 12/30/18 showed severe AI and no vegetations, Cr bumped to 2.0 - As per Shotgun Shell Reprinting Unit Operator discussion with Primary caridology pt has chronic AI and CKD- After discussion pt deemed high risk for CABG so recommended for transfer to [facility] for staged complex PCI of LAD and RCA, and possible staged TAVR- family in agreement for transfer- awaiting bed availability will continue to follow up Consultation Date/Type/Reason Admit Date/Time December 28, 2018 at 03:23 Initial Consult Date 12/28/18 Type of Consult NEPHROLOGY Requesting Provider: KRYSTAL BERNARD Date/Time of Note DATE: 01/05/19 TIME: 10:04 Exam/Review of Systems Exam Vitals Vital Signs Date Temp Pulse Resp B/P (MAP) Pulse Ox O2 O2 Flow FiO2 Time Delivery Rate 01/05/19 92 29 107/45 96 09:30 (65) 01/05/19 98.2 BIPAP 08:00 01/05/19 50 06:27 01/05/19 7.0 02:00 Intake and Output 01/04/19 01/04/19 01/05/19 1414:59 22:59 06:59 IntakeIntake Total 244.0 ml 550 ml 603 ml OutputOutput Total 565 ml 425 ml 300 ml BalanceBalance -321.0 ml 125 ml 303 ml Exam Gen: Frail , no acute distress Eyes: PERRL, no icterus HEENT: Moist mucous membranes, clear oropharynx Neck: + JVD ,, no lymphadenopathy Card: Regular rate and rhythm, no murmurs appreciated Pulm: Rales throughout. Abd: Soft, nontender, nondistended. Ext: No cyanosis/clubbing/edema. Results Result Diagram: 01/05/19 0504 01/05/19 0504 Results 24hrs Laboratory Tests Test 01/04/19 12:28 01/04/19 17:30 01/04/19 20:19 01/05/19 05:00 Bedside Glucose 123 112 103 Blood Gas Blood arterial Specimen Source Arterial Blood 01/05/2019 5:20:2 Date Drawn 2 AM Arterial Blood pH 7.380 (Temp corrected) Arterial Blood 37.4 pCO2 (Temp correct) Arterial Blood 99.0 H pO2 (Temp corrected) Arterial Blood 21.6 L HCO3 Arterial Blood -3.1 L Base Excess Arterial Blood 96.5 Oxygen Saturation Francis Test ACCEPTAB Arterial Blood Right Radial Gas Puncture Site Arterial 0.3 Blood Carboxyhemo globin Arterial Blood 0.3 Methemoglobin Blood Gas A-a O2 215.4 H Differential Oxyhemoglobin 95.9 Percent Blood Gas 37.0 Temperature Blood Gas 20.0 Respiration Rate Blood Gas Actual 20 Respiration Rate Blood Gas MASK - BIPAP Modality FiO2 50.0 Blood Gas 12 Pressure Support Blood Gas 20/8 IPAP/EPAP Ratio Blood Gas UP Notified Whom Blood Gas 01/05/2019 5:42:0 Notified Time 0 AM Creatine Kinase 34 Creatine Kinase 5.1 Index Creatinine Kinase 1.72 MB (Mass) Troponin I 1.500 *H Test 01/05/19 05:04 01/05/19 08:45 White Blood Count 14.2 H Red Blood Count 2.58 L Hemoglobin 7.8 L Hematocrit 25.3 L Mean Corpuscular 98.1 Volume Mean Corpuscular 30.2 Hemoglobin Mean Corpuscular 30.8 L Hemoglobin Concen t Red Cell 16.6 H Distribution Width Platelet Count 320 Mean Platelet 10.0 Volume Immature 0.600 H Granulocytes % Neutrophils % 84.4 H Lymphocytes % 10.0 L Monocytes % 3.9 Eosinophils % 0.6 Basophils % 0.5 Nucleated Red 0.0 Blood Cells % Immature 0.090 H Granulocytes # Neutrophils # 12.0 H Lymphocytes # 1.4 Monocytes # 0.6 Eosinophils # 0.1 Basophils # 0.1 Nucleated Red 0.0 Blood Cells # Sodium Level 146 H Potassium Level 3.8 Chloride Level 110 Carbon Dioxide 21 Level Anion Gap 15 H Blood Urea 50 H Nitrogen Creatinine 1.93 H Est Glomerular Filtrat Rate mL/min Glucose Level 92 Lactic Acid Level 0.9 Calcium Level 8.2 L Phosphorus Level 4.7 Magnesium Level 2.4 Total Bilirubin 0.2 Direct Bilirubin 0.00 Indirect 0.2 Bilirubin Aspartate Amino 25 Transf (AST/SGOT) Alanine 22 Aminotransferase (ALT/SGPT) Alkaline 61 Phosphatase B-Type 07477 H Natriuretic Peptide Total Protein 5.7 L Albumin 3.1 L Globulin 2.60 Albumin/Globulin 1.19 Ratio Vancomycin Level 15.8 Trough Bedside Glucose 98 Medications Medication Current Medications IV Flush (NS 3 ml) 3 ml PER PROTOCOL IV ; Start 12/28/18 at 04:30 Ondansetron HCl (Zofran Inj) 4 mg Q6H PRN IV NAUSEA/VOMITING Last administered on 01/04/19at 08:54; Admin Dose 4 MG; Start 12/28/18 at 04:30 Aspirin (Aspirin) 81 mg DAILY PO Last administered on 01/05/19at 08:41; Admin Dose 81 MG; Start 12/28/18 at 09:00 Nitroglycerin (Nitroglycerin (Sl Tab) 0.4 Mg) 1 tab Q5M PRN SL .CHEST PAIN Last administered on 01/05/19at 06:43; Admin Dose 1 TAB; Start 12/28/18 at 04:30 Diagnostic Test (Pha) (Accu-Chek) 1 ea 02 XX Last administered on 12/31/18at 01:01; Admin Dose 1 EA; Start 12/29/18 at 02:00 Miscellaneous Information 1 ea NOTE XX ; Start 12/28/18 at 05:00 Glucose (Glutose) 15 gm Q15M PRN PO DECREASED GLUCOSE; Start 12/28/18 at 05:00 Glucose (Glutose) 22.5 gm Q15M PRN PO DECREASED GLUCOSE; Start 12/28/18 at 05:00 Dextrose (D50w Syringe) 25 ml Q15M PRN IV DECREASED GLUCOSE; Start 12/28/18 at 05:00 Dextrose (D50w Syringe) 50 ml Q15M PRN IV DECREASED GLUCOSE; Start 12/28/18 at 05:00 Glucagon (Glucagen) 1 mg Q15M PRN IM DECREASED GLUCOSE; Start 12/28/18 at 05:00 Glucose (Glutose) 15 gm Q15M PRN BUCCAL DECREASED GLUCOSE; Start 12/28/18 at 05:00 Atorvastatin Calcium (Lipitor) 80 mg HS PO Last administered on 01/04/19 20:20; Admin Dose 80 MG; Start 12/29/18 at 21:00 Phenol (Cepastat Lozenge) 1 lozenge Q1H PRN MT COUGH Last administered on 01/03/19 13:05; Admin Dose 1 LOZENGE; Start 12/28/18 at 17:30 Vancomycin HCl (Vanco Iv Per Pharmacy) VANCOMYCIN PER PHARMACY PER PROTOCOL XX ; Start 12/29/18 at 05:30 Escitalopram Oxalate (Lexapro) 10 mg DAILY PO Last administered on 01/05/19 08:42; Admin Dose 10 MG; Start 12/29/18 at 09:30 Risedronate (Actonel) 35 mg Tu@AC BREAKFAST PO ; Start 12/30/18 at 07:00 Mirtazapine (Remeron) 15 mg HS PO Last administered on 01/04/19 20:20; Admin Dose 15 MG; Start 12/29/18 at 21:00 Pantoprazole (Protonix Tab) 40 mg DAILY@06 PO Last administered on 01/05/19 05:20; Admin Dose 40 MG; Start 12/30/18 at 06:00 Docusate Sodium (Colace) 100 mg BID PO Last administered on 01/05/19 08:42; Admin Dose 100 MG; Start 12/29/18 at 18:30 Nitroglycerin/ Dextrose 250 ml @ 1.5 mls/hr TITRATE IV Last administered on 01/04/19 03:42; Admin Dose 1.5 MLS/HR; Start 12/31/18 at 23:00 Vancomycin HCl 250 ml @ 125 mls/hr Q48H IVPB Last administered on 01/05/19 06:05; Admin Dose 125 MLS/HR; Start 01/03/19 at 06:00 Carvedilol (Coreg) 12.5 mg BID PO Last administered on 01/05/19 08:42; Admin Dose 12.5 MG; Start 01/02/19 at 09:00 Clopidogrel Bisulfate (plaVIX) 75 mg DAILY PO Last administered on 01/05/19 08:42; Admin Dose 75 MG; Start 01/03/19 at 09:00 Isosorbide Mononitrate (Imdur) 30 mg DAILY PO Last administered on 01/05/19 08:41; Admin Dose 30 MG; Start 01/02/19 at 09:00 Furosemide (Lasix) 40 mg DAILY IV Last administered on 01/05/19 08:41; Admin Dose 40 MG; Start 01/03/19 at 09:00 Insulin Aspart (Novolog Insulin Pen) NOVOLOG *MODERATE* ALGORITHM WITH MEALS BEDTIME SC ; Start 01/02/19 at 21:00 Ranolazine (Ranexa) 1,000 mg Q12 PO Last administered on 01/05/19 08:42; Admin Dose 1,000 MG; Start 01/03/19 at 13:30 Piperacillin Sod/ Tazobactam Sod 50 ml @ 100 mls/hr Q8 IVPB Last administered on 01/05/19 05:20; Admin Dose 100 MLS/HR; Start 01/03/19 at 22:00 Miscellaneous Information (* Miscellaneous Pharmacy Order) Hold all Metformin ... ONCE XX Last administered on 01/04/19 15:43; Admin Dose 1 EA; Start 01/04/19 at 15:00; Stop 01/06/19 at 14:59 Morphine Sulfate (morphine) 1 mg Q1H PRN IV SEVERE PAIN LEVEL 7-10 Last administered on 01/05/19 05:26; Admin Dose 1 MG; Start 01/04/19 at 16:00 PATTI CALLEJAS MD January 05, 2019 10:04
--- NOTE | 2019-01-05 10:19 | CONS ---
Assessment/Plan Assessment/Plan Hospital Course (Demo Recall) 83 yo with STEMI/new LBBB, with severe 2V CAD, culprit lesion is LAD with SHERIN 2 flow on cath, with ischemic cardiomyopathy, lvef 40-45% and severe aortic regurgitation. LOUIE negative for vegetations. Course complicated by acute heart failure, and recurrent chest pain. Underwent urgent PCI to mid LAD yesterday. Plan for PCI to proximal RCA on Saturday or . 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 Risks and benefits discussed with , her decision maker, he ag rehan to proceed. Plan to be discussed with Dr. Archuleta, outpatient disposal plant operator Consultation Date/Type/Reason Admit Date/Time December 28, 2018 at 03:23 Initial Consult Date 12/28/18 Type of Consult Cardiology Requesting Provider: KRYSTAL BERNARD Date/Time of Note DATE: 01/05/19 TIME: 10:13 24 HR Interval Summary Free Text/Dictation Spoke with patient and this morning with video japanese interpreter, and RN present. Over the weekend, she underwent urgent PCI of her culprit LAD lesion, which by report went smoothly. She denies chest pain, but does have abdominal discomfort and bloating which she attributes to not having moved her bowels. Exam/Review of Systems Vital Signs Vitals Vital Signs Date Temp Pulse Resp B/P (MAP) Pulse Ox O2 O2 Flow FiO2 Time Delivery Rate 01/05/19 92 29 107/45 96 09:30 (65) 01/05/19 98.2 BIPAP 08:00 01/05/19 50 07:45 01/05/19 7.0 02:00 Intake and Output 01/04/19 01/04/1919 1515:00 23:00 07:00 IntakeIntake Total 115.0 ml 625 ml 528 ml OutputOutput Total 585 ml 415 ml 290 ml BalanceBalance -470.0 ml 210 ml 238 ml Exam Constitutional: alert; No distress Psych: nl mood/affect Head: normocephalic, atraumatic Eyes: EOMI, nl lids ENMT: nl external ears & nose Neck: No jvd, No bruits Respiratory: clear to auscultation (anteriorly), normal air movement Cardiovascular: regular rate and rhythm, murmurs/extra sounds Gastrointestinal: soft, nl liver, spleen, non-tender Musculoskeletal: nl extremities to inspection (right groin site intact, no star michel, no bruit) Extremities: No edema Neurological: nl speech Skin: nl turgor Labs Result Diagram: 01/05/19 0504 01/05/19 0504 Results 24hrs Laboratory Tests Test 01/04/19 12:28 01/04/19 17:30 01/04/19 20:19 01/05/19 05:00 Bedside Glucose 123 112 103 Blood Gas Blood arterial Specimen Source Arterial Blood 01/05/2019 5:20:2 Date Drawn 2 AM Arterial Blood pH 7.380 (Temp corrected) Arterial Blood 37.4 pCO2 (Temp correct) Arterial Blood 99.0 H pO2 (Temp corrected) Arterial Blood 21.6 L HCO3 Arterial Blood -3.1 L Base Excess Arterial Blood 96.5 Oxygen Saturation Francis Test ACCEPTAB Arterial Blood Right Radial Gas Puncture Site Arterial 0.3 Blood Carboxyhemo globin Arterial Blood 0.3 Methemoglobin Blood Gas A-a O2 215.4 H Differential Oxyhemoglobin 95.9 Percent Blood Gas 37.0 Temperature Blood Gas 20.0 Respiration Rate Blood Gas Actual 20 Respiration Rate Blood Gas MASK - BIPAP Modality FiO2 50.0 Blood Gas 12 Pressure Support Blood Gas 20/8 IPAP/EPAP Ratio Blood Gas UP Notified Whom Blood Gas 01/05/2019 5:42:0 Notified Time 0 AM Creatine Kinase 34 Creatine Kinase 5.1 Index Creatinine Kinase 1.72 MB (Mass) Troponin I 1.500 *H Test 01/05/19 05:04 01/05/19 08:45 White Blood Count 14.2 H Red Blood Count 2.58 L Hemoglobin 7.8 L Hematocrit 25.3 L Mean Corpuscular 98.1 Volume Mean Corpuscular 30.2 Hemoglobin Mean Corpuscular 30.8 L Hemoglobin Concen t Red Cell 16.6 H Distribution Width Platelet Count 320 Mean Platelet 10.0 Volume Immature 0.600 H Granulocytes % Neutrophils % 84.4 H Lymphocytes % 10.0 L Monocytes % 3.9 Eosinophils % 0.6 Basophils % 0.5 Nucleated Red 0.0 Blood Cells % Immature 0.090 H Granulocytes # Neutrophils # 12.0 H Lymphocytes # 1.4 Monocytes # 0.6 Eosinophils # 0.1 Basophils # 0.1 Nucleated Red 0.0 Blood Cells # Sodium Level 146 H Potassium Level 3.8 Chloride Level 110 Carbon Dioxide 21 Level Anion Gap 15 H Blood Urea 50 H Nitrogen Creatinine 1.93 H Est Glomerular Filtrat Rate mL/min Glucose Level 92 Lactic Acid Level 0.9 Calcium Level 8.2 L Phosphorus Level 4.7 Magnesium Level 2.4 Total Bilirubin 0.2 Direct Bilirubin 0.00 Indirect 0.2 Bilirubin Aspartate Amino 25 Transf (AST/SGOT) Alanine 22 Aminotransferase (ALT/SGPT) Alkaline 61 Phosphatase B-Type 83102 H Natriuretic Peptide Total Protein 5.7 L Albumin 3.1 L Globulin 2.60 Albumin/Globulin 1.19 Ratio Vancomycin Level 15.8 Trough Bedside Glucose 98 Medications Medications Current Medications IV Flush (NS 3 ml) 3 ml PER PROTOCOL IV ; Start 12/28/18 at 04:30 Ondansetron HCl (Zofran Inj) 4 mg Q6H PRN IV NAUSEA/VOMITING Last administered on 01/04/19at 08:54; Admin Dose 4 MG; Start 12/28/18 at 04:30 Aspirin (Aspirin) 81 mg DAILY PO Last administered on 01/05/19at 08:41; Admin Dose 81 MG; Start 12/28/18 at 09:00 Nitroglycerin (Nitroglycerin (Sl Tab) 0.4 Mg) 1 tab Q5M PRN SL .CHEST PAIN Last administered on 01/05/19at 06:43; Admin Dose 1 TAB; Start 12/28/18 at 04:30 Diagnostic Test (Pha) (Accu-Chek) 1 ea 02 XX Last administered on 12/31/18at 01:01; Admin Dose 1 EA; Start 12/29/18 at 02:00 Miscellaneous Information 1 ea NOTE XX ; Start 12/28/18 at 05:00 Glucose (Glutose) 15 gm Q15M PRN PO DECREASED GLUCOSE; Start 12/28/18 at 05:00 Glucose (Glutose) 22.5 gm Q15M PRN PO DECREASED GLUCOSE; Start 12/28/18 at 05:00 Dextrose (D50w Syringe) 25 ml Q15M PRN IV DECREASED GLUCOSE; Start 12/28/18 at 05:00 Dextrose (D50w Syringe) 50 ml Q15M PRN IV DECREASED GLUCOSE; Start 12/28/18 at 05:00 Glucagon (Glucagen) 1 mg Q15M PRN IM DECREASED GLUCOSE; Start 12/28/18 at 05:00 Glucose (Glutose) 15 gm Q15M PRN BUCCAL DECREASED GLUCOSE; Start 12/28/18 at 05:00 Atorvastatin Calcium (Lipitor) 80 mg HS PO Last administered on 01/04/19at 20:20; Admin Dose 80 MG; Start 12/29/18 at 21:00 Phenol (Cepastat Lozenge) 1 lozenge Q1H PRN MT COUGH Last administered on 12/24 09/13at 13:05; Admin Dose 1 LOZENGE; Start 12/28/18 at 17:30 Vancomycin HCl (Vanco Iv Per Pharmacy) VANCOMYCIN PER PHARMACY PER PROTOCOL XX ; Start 12/29/18 at 05:30 Escitalopram Oxalate (Lexapro) 10 mg DAILY PO Last administered on 01/05/19at 08:42; Admin Dose 10 MG; Start 12/29/18 at 09:30 Risedronate (Actonel) 35 mg Tu@AC BREAKFAST PO ; Start 12/30/18 at 07:00 Mirtazapine (Remeron) 15 mg HS PO Last administered on 01/04/19at 20:20; Admin Dose 15 MG; Start 12/29/18 at 21:00 Pantoprazole (Protonix Tab) 40 mg DAILY@06 PO Last administered on 01/05/19 05:20; Admin Dose 40 MG; Start 12/30/18 at 06:00 Docusate Sodium (Colace) 100 mg BID PO Last administered on 01/05/19 08:42; Admin Dose 100 MG; Start 12/29/18 at 18:30 Nitroglycerin/ Dextrose 250 ml @ 1.5 mls/hr TITRATE IV Last administered on 01/04/19at 03:42; Admin Dose 1.5 MLS/HR; Start 12/31/18 at 23:00 Vancomycin HCl 250 ml @ 125 mls/hr Q48H IVPB Last administered on 01/05/19 06:05; Admin Dose 125 MLS/HR; Start 01/03/19 at 06:00 Carvedilol (Coreg) 12.5 mg BID PO Last administered on 01/05/19 08:42; Admin Dose 12.5 MG; Start 01/02/19 at 09:00 Clopidogrel Bisulfate (plaVIX) 75 mg DAILY PO Last administered on 01/05/19 08:42; Admin Dose 75 MG; Start 01/03/19 at 09:00 Isosorbide Mononitrate (Imdur) 30 mg DAILY PO Last administered on 01/05/19 08:41; Admin Dose 30 MG; Start 01/02/19 at 09:00 Furosemide (Lasix) 40 mg DAILY IV Last administered on 01/05/19 08:41; Admin Dose 40 MG; Start 01/03/19 at 09:00 Insulin Aspart (Novolog Insulin Pen) NOVOLOG *MODERATE* ALGORITHM WITH MEALS BEDTIME SC ; Start 01/02/19 at 21:00 Ranolazine (Ranexa) 1,000 mg Q12 PO Last administered on 01/05/19 08:42; Admin Dose 1,000 MG; Start 01/03/19 at 13:30 Piperacillin Sod/ Tazobactam Sod 50 ml @ 100 mls/hr Q8 IVPB Last administered on 01/05/19 05:20; Admin Dose 100 MLS/HR; Start 01/03/19 at 22:00 Miscellaneous Information (* Miscellaneous Pharmacy Order) Hold all Metformin ... ONCE XX Last administered on 01/04/19 15:43; Admin Dose 1 EA; Start 01/04/19 at 15:00; Stop 01/06/19 at 14:59 Morphine Sulfate (morphine) 1 mg Q1H PRN IV SEVERE PAIN LEVEL 7-10 Last administered on 01/05/19 05:26; Admin Dose 1 MG; Start 01/04/19 at 16:00 RODRIGUEZ GARZA January 05, 2019 10:19
--- NOTE | 2019-01-05 10:57 | RADRPT ---
Vent Rate: 91 bpm RR Interval: 656 msec ID Interval: 171 msec QRS Duration: 192 msec QT Interval: 466 msec QTC Interval: 575 msec P-R-T [place]: 86 - -11 - 164 degrees Sinus rhythm...normal P axis, V-rate 50- 99 Left bundle branch block...QRSd>120, broad/notched R ST elevation secondary to IVCD...Multiple VCG criteria Lead(s) aVR were not used for morphology analysis Electronically Signed By: Pepe Lilly
--- NOTE | 2019-01-05 12:16 | CONS ---
Consult Date/Type/Reason Admit Date/Time December 28, 2018 at 03:23 Initial Consult Date 01/03/19 Type of Consult Pulmonary Requesting Provider: KRYSTAL BERNARD Date/Time of Note DATE: 01/05/19 TIME: 12:15 Subjective Patient appears comfortable this morning no respiratory distress. Pending further angiography and possible stent placement. PRN BiPAP. Objective Vital Signs Date Temp Pulse Resp B/P (MAP) Pulse Ox O2 O2 Flow FiO2 Time Delivery Rate 01/05/19 92 29 107/45 96 09:30 (65) 01/05/19 98.2 BIPAP 08:00 01/05/19 50 07:45 01/05/19 7.0 02:00 Intake and Output 01/04/19 01/04/19 01/05/19 1414:59 22:59 06:59 IntakeIntake Total 244.0 ml 550 ml 603 ml OutputOutput Total 565 ml 425 ml 300 ml BalanceBalance -321.0 ml 125 ml 303 ml Exam GENERAL: Elderly lady on nasal cannula O2 VITAL SIGNS: per chart NECK: Supple. No JVD or lymphadenopathy. CARDIAC EXAM: S1, S2. No added sounds or murmurs. CHEST: Few bilateral rales ABDOMEN: Soft, nontender. No guarding or rebound. EXTREMITIES: No cyanosis, clubbing or edema. NEUROLOGIC: Generalized weakness. No focal deficits. Results/Medications Result Diagram: 01/05/19 0504 01/05/19 0504 Results 24 hrs Laboratory Tests Test 01/04/19 12:28 01/04/19 17:30 01/04/19 20:19 01/05/19 05:00 Bedside Glucose 123 112 103 Blood Gas Blood arterial Specimen Source Arterial Blood 01/05/2019 5:20:2 Date Drawn 2 AM Arterial Blood pH 7.380 (Temp corrected) Arterial Blood 37.4 pCO2 (Temp correct) Arterial Blood 99.0 H pO2 (Temp corrected) Arterial Blood 21.6 L HCO3 Arterial Blood -3.1 L Base Excess Arterial Blood 96.5 Oxygen Saturation Francis Test ACCEPTAB Arterial Blood Right Radial Gas Puncture Site Arterial 0.3 Blood Carboxyhemo globin Arterial Blood 0.3 Methemoglobin Blood Gas A-a O2 215.4 H Differential Oxyhemoglobin 95.9 Percent Blood Gas 37.0 Temperature Blood Gas 20.0 Respiration Rate Blood Gas Actual 20 Respiration Rate Blood Gas MASK - BIPAP Modality FiO2 50.0 Blood Gas 12 Pressure Support Blood Gas 20/8 IPAP/EPAP Ratio Blood Gas UP Notified Whom Blood Gas 01/05/2019 5:42:0 Notified Time 0 AM Creatine Kinase 34 Creatine Kinase 5.1 Index Creatinine Kinase 1.72 MB (Mass) Troponin I 1.500 *H Test 01/05/19 05:04 01/05/19 08:45 White Blood Count 14.2 H Red Blood Count 2.58 L Hemoglobin 7.8 L Hematocrit 25.3 L Mean Corpuscular 98.1 Volume Mean Corpuscular 30.2 Hemoglobin Mean Corpuscular 30.8 L Hemoglobin Concen t Red Cell 16.6 H Distribution Width Platelet Count 320 Mean Platelet 10.0 Volume Immature 0.600 H Granulocytes % Neutrophils % 84.4 H Lymphocytes % 10.0 L Monocytes % 3.9 Eosinophils % 0.6 Basophils % 0.5 Nucleated Red 0.0 Blood Cells % Immature 0.090 H Granulocytes # Neutrophils # 12.0 H Lymphocytes # 1.4 Monocytes # 0.6 Eosinophils # 0.1 Basophils # 0.1 Nucleated Red 0.0 Blood Cells # Sodium Level 146 H Potassium Level 3.8 Chloride Level 110 Carbon Dioxide 21 Level Anion Gap 15 H Blood Urea 50 H Nitrogen Creatinine 1.93 H Est Glomerular Filtrat Rate mL/min Glucose Level 92 Lactic Acid Level 0.9 Calcium Level 8.2 L Phosphorus Level 4.7 Magnesium Level 2.4 Total Bilirubin 0.2 Direct Bilirubin 0.00 Indirect 0.2 Bilirubin Aspartate Amino 25 Transf (AST/SGOT) Alanine 22 Aminotransferase (ALT/SGPT) Alkaline 61 Phosphatase B-Type 78594 H Natriuretic Peptide Total Protein 5.7 L Albumin 3.1 L Globulin 2.60 Albumin/Globulin 1.19 Ratio Vancomycin Level 15.8 Trough Bedside Glucose 98 Medications Current Medications IV Flush (NS 3 ml) 3 ml PER PROTOCOL IV ; Start 12/28/18 at 04:30 Ondansetron HCl (Zofran Inj) 4 mg Q6H PRN IV NAUSEA/VOMITING Last administered on 01/04/19at 08:54; Admin Dose 4 MG; Start 12/28/18 at 04:30 Aspirin (Aspirin) 81 mg DAILY PO Last administered on 01/05/19at 08:41; Admin Dose 81 MG; Start 12/28/18 at 09:00 Nitroglycerin (Nitroglycerin (Sl Tab) 0.4 Mg) 1 tab Q5M PRN SL .CHEST PAIN Last administered on 01/05/19at 06:43; Admin Dose 1 TAB; Start 12/28/18 at 04:30 Diagnostic Test (Pha) (Accu-Chek) 1 ea 02 XX Last administered on 12/31/18at 01:01; Admin Dose 1 EA; Start 12/29/18 at 02:00 Miscellaneous Information 1 ea NOTE XX ; Start 12/28/18 at 05:00 Glucose (Glutose) 15 gm Q15M PRN PO DECREASED GLUCOSE; Start 12/28/18 at 05:00 Glucose (Glutose) 22.5 gm Q15M PRN PO DECREASED GLUCOSE; Start 12/28/18 at 05:00 Dextrose (D50w Syringe) 25 ml Q15M PRN IV DECREASED GLUCOSE; Start 12/28/18 at 05:00 Dextrose (D50w Syringe) 50 ml Q15M PRN IV DECREASED GLUCOSE; Start 12/28/18 at 05:00 Glucagon (Glucagen) 1 mg Q15M PRN IM DECREASED GLUCOSE; Start 12/28/18 at 05:00 Glucose (Glutose) 15 gm Q15M PRN BUCCAL DECREASED GLUCOSE; Start 12/28/18 at 05:00 Atorvastatin Calcium (Lipitor) 80 mg HS PO Last administered on 01/04/19at 20:20; Admin Dose 80 MG; Start 12/29/18 at 21:00 Phenol (Cepastat Lozenge) 1 lozenge Q1H PRN MT COUGH Last administered on 01/03/19at 13:05; Admin Dose 1 LOZENGE; Start 12/28/18 at 17:30 Vancomycin HCl (Vanco Iv Per Pharmacy) VANCOMYCIN PER PHARMACY PER PROTOCOL XX ; Start 12/29/18 at 05:30 Escitalopram Oxalate (Lexapro) 10 mg DAILY PO Last administered on 01/05/19at 08:42; Admin Dose 10 MG; Start 12/29/18 at 09:30 Risedronate (Actonel) 35 mg Tu@AC BREAKFAST PO ; Start 12/30/18 at 07:00 Mirtazapine (Remeron) 15 mg HS PO Last administered on 01/04/19at 20:20; Admin Dose 15 MG; Start 12/29/18 at 21:00 Pantoprazole (Protonix Tab) 40 mg DAILY@06 PO Last administered on 01/05/19 05:20; Admin Dose 40 MG; Start 12/30/18 at 06:00 Docusate Sodium (Colace) 100 mg BID PO Last administered on 01/05/19 08:42; Admin Dose 100 MG; Start 12/29/18 at 18:30 Nitroglycerin/ Dextrose 250 ml @ 1.5 mls/hr TITRATE IV Last administered on 01/04/19 03:42; Admin Dose 1.5 MLS/HR; Start 12/31/18 at 23:00 Vancomycin HCl 250 ml @ 125 mls/hr Q48H IVPB Last administered on 01/05/19 06:05; Admin Dose 125 MLS/HR; Start 01/03/19 at 06:00 Carvedilol (Coreg) 12.5 mg BID PO Last administered on 01/05/19 08:42; Admin Dose 12.5 MG; Start 01/02/19 at 09:00 Clopidogrel Bisulfate (plaVIX) 75 mg DAILY PO Last administered on 01/05/19 08:42; Admin Dose 75 MG; Start 01/03/19 at 09:00 Isosorbide Mononitrate (Imdur) 30 mg DAILY PO Last administered on 01/05/19 08:41; Admin Dose 30 MG; Start 01/02/19 at 09:00 Furosemide (Lasix) 40 mg DAILY IV Last administered on 01/05/19 08:41; Admin Dose 40 MG; Start 01/03/19 at 09:00 Insulin Aspart (Novolog Insulin Pen) NOVOLOG *MODERATE* ALGORITHM WITH MEALS BEDTIME SC ; Start 01/02/19 at 21:00 Ranolazine (Ranexa) 1,000 mg Q12 PO Last administered on 01/05/19 08:42; Admin Dose 1,000 MG; Start 01/03/19 at 13:30 Piperacillin Sod/ Tazobactam Sod 50 ml @ 100 mls/hr Q8 IVPB Last administered on 01/05/19 05:20; Admin Dose 100 MLS/HR; Start 01/03/19 at 22:00 Miscellaneous Information (* Miscellaneous Pharmacy Order) Hold all Metformin ... ONCE XX Last administered on 5/12/19at 15:43; Admin Dose 1 EA; Start 01/04/19 at 15:00; Stop 01/06/19 at 14:59 Morphine Sulfate (morphine) 1 mg Q1H PRN IV SEVERE PAIN LEVEL 7-10 Last administered on 01/05/19at 05:26; Admin Dose 1 MG; Start 01/04/19 at 16:00 Assessment/Plan Hospital Course (Demo Recall) IMP: 1. s/p Acute [place]--now with unstable angina 2. CHF 3. Hypercapnic Resp Insufficiency 4. Severe CAD 5. Bacteremia 6. Acute and CKD 7. Possible aspiration pneumonia RECS: 1. Continue diuresis, monitor creatinine 2. Follow I/O's and renal function 3. Aspiration precautions 4. BiPAP prn 5. Continue NTG gtt 6. To clinical laboratory technologist as per Cards tentatively scheduled for today 7. Abx as per ID 8. Am CXR/ABG 35 min cc time TONE REID MD, [facility] January 05, 2019 12:16
[2019-01-05] MEDS ORDERED: FUROSEMIDE 40 MG INJ IV ONE (21:00)
[2019-01-05] MEDS: ATORVASTATIN 80 MG TAB PO SCH (21:53)
[2019-01-05] MEDS: MIRTAZAPINE 15 MG TAB PO SCH (21:53)
--- NOTE | 2019-01-05 22:01 | RADRPT ---
Vent Rate: 76 bpm RR Interval: 784 msec UT Interval: 194 msec QRS Duration: 127 msec QT Interval: 404 msec QTC Interval: 456 msec P-R-T [place]: 50 - 15 - 226 degrees Sinus rhythm...normal P axis, V-rate 50- 99 IVCD, consider LBBB...QRSd>120, notch/slur R I aVL V5-6 Electronically Signed By: Mihir Mosher
[2019-01-06] VITALS (63 sets, daily range): BP systolic 102–164; BP diastolic 37–92; PULSE 81–110; RESP 19–37
[2019-01-06] MEDS: ACCU-CHEK XX SCH (01:30)
[2019-01-06] MEDS: NITROGLYCERIN (SL) 0.4 MG TAB SL PRN ×2 (04:23→04:29)
[2019-01-06] MEDS: morphine 2 MG INJ IV PRN (04:24)
[2019-01-06] MEDS: NITROGLYCERIN 50 MG/D5W (PMX) 250 ML IV SCH ×2 (04:28→19:44)
[2019-01-06] MEDS ORDERED: LIDOCAINE 1% (MDV) 20 ML INJ SC ONE (05:00)
[2019-01-06] MEDS: PIPER-TAZO 2.25 GM (PMX) 50 ML IVPB SCH ×3 (05:33→22:48)
[2019-01-06] MEDS: PANTOPRAZOLE (EC) 40 MG TAB PO SCH (05:34)
[2019-01-06] MEDS: RISEDRONATE 35 MG TAB PO SCH (07:05)
[2019-01-06] MEDS: INSULIN ASPART [NOVOLOG] 3 ML PEN SC SCH ×4 (08:28→22:49)
[2019-01-06] MEDS: RANOLAZINE (SR) 500 MG TAB PO SCH ×2 (09:01→22:32)
[2019-01-06] MEDS: DOCUSATE SODIUM 100 MG CAP PO SCH ×2 (09:01→22:32)
[2019-01-06] MEDS: ASPIRIN 81 MG TAB PO SCH (09:02)
[2019-01-06] MEDS: FUROSEMIDE 40 MG INJ IV SCH (09:02)
[2019-01-06] MEDS: ESCITALOPRAM 10 MG TAB PO SCH (09:02)
[2019-01-06] MEDS: ISOSORBIDE MONONITRATE(SR)30 MG TAB PO SCH (09:02)
[2019-01-06] MEDS: CLOPIDOGREL 75 MG TAB PO SCH (09:02)
--- NOTE | 2019-01-06 12:41 | CONS ---
Consult Date/Type/Reason Admit Date/Time December 28, 2018 at 03:23 Initial Consult Date 01/03/19 Type of Consult Pulmonary Requesting Provider: KRYSTAL BERNARD Date/Time of Note DATE: 01/06/19 TIME: 12:40 Subjective Patient is this morning but more alert now. Objective Vital Signs Date Temp Pulse Resp B/P (MAP) Pulse Ox O2 O2 Flow FiO2 Time Delivery Rate 01/06/19 84 21 133/52 97 Nasal 4.0 11:00 (79) Cannula 01/06/19 98.2 08:00 01/05/19 50 20:25 Intake and Output 01/05/19 01/05/19 01/06/19 1515:00 23:00 07:00 IntakeIntake Total 600 ml 400 ml 65.5 ml OutputOutput Total 485 ml 460 ml 400 ml BalanceBalance 115 ml -60 ml -334.5 ml Exam GENERAL: Elderly lady on nasal cannula O2 VITAL SIGNS: per chart NECK: Supple. No JVD or lymphadenopathy. CARDIAC EXAM: S1, S2. No added sounds or murmurs. CHEST: Few bilateral rales ABDOMEN: Soft, nontender. No guarding or rebound. EXTREMITIES: No cyanosis, clubbing or edema. NEUROLOGIC: Generalized weakness. No focal deficits. Results/Medications Result Diagram: 01/06/19 0431 01/06/19 0431 Results 24 hrs Laboratory Tests Test 01/05/19 17:01 01/05/19 19:49 01/05/19 21:51 01/06/19 04:31 Bedside Glucose 102 147 Troponin I 1.240 *H 1.420 *H White Blood Count 19.2 #H Red Blood Count 2.66 L Hemoglobin 7.9 L Hematocrit 25.8 L Mean Corpuscular 97.0 Volume Mean Corpuscular 29.7 Hemoglobin Mean Corpuscular 30.6 L Hemoglobin Concent Red Cell 17.2 H Distribution Width Platelet Count 364 Mean Platelet Volume 10.3 Immature 0.900 H Granulocytes % Neutrophils % 83.9 H Lymphocytes % 9.9 L Monocytes % 3.3 Eosinophils % 1.4 Basophils % 0.6 Nucleated Red Blood 0.2 H Cells % Immature 0.180 H Granulocytes # Neutrophils # 16.1 H Lymphocytes # 1.9 Monocytes # 0.6 Eosinophils # 0.3 Basophils # 0.1 Nucleated Red Blood 0.0 Cells # Absolute 0.091 Reticulocyte Count Percent Reticulocyte 3.5 H Count Sodium Level 147 H Potassium Level 3.8 Chloride Level 109 Carbon Dioxide Level 23 Anion Gap 15 H Blood Urea Nitrogen 48 H Creatinine 1.94 H Est Glomerular Filtrat Rate mL/min Glucose Level 169 Calcium Level 8.3 L Magnesium Level 2.4 Iron Level 39 Total Iron Binding 270 Capacity Percent Iron 14 L Saturation Ferritin 390.0 H Test 01/06/19 05:26 01/06/19 07:55 Creatinine Kinase MB 1.02 (Mass) Bedside Glucose 158 Medications Current Medications IV Flush (NS 3 ml) 3 ml PER PROTOCOL IV ; Start 12/28/18 at 04:30 Ondansetron HCl (Zofran Inj) 4 mg Q6H PRN IV NAUSEA/VOMITING Last administered on 01/04/19at 08:54; Admin Dose 4 MG; Start 12/28/18 at 04:30 Aspirin (Aspirin) 81 mg DAILY PO Last administered on 01/06/19at 09:02; Admin Dose 81 MG; Start 12/28/18 at 09:00 Nitroglycerin (Nitroglycerin (Sl Tab) 0.4 Mg) 1 tab Q5M PRN SL .CHEST PAIN Last administered on 01/06/19at 04:29; Admin Dose 1 TAB; Start 12/28/18 at 04:30 Diagnostic Test (Pha) (Accu-Chek) 1 ea 02 XX Last administered on 12/31/18at 01:01; Admin Dose 1 EA; Start 12/29/18 at 02:00 Miscellaneous Information 1 ea NOTE XX ; Start 12/28/18 at 05:00 Glucose (Glutose) 15 gm Q15M PRN PO DECREASED GLUCOSE; Start 12/28/18 at 05:00 Glucose (Glutose) 22.5 gm Q15M PRN PO DECREASED GLUCOSE; Start 12/28/18 at 05:00 Dextrose (D50w Syringe) 25 ml Q15M PRN IV DECREASED GLUCOSE; Start 12/28/18 at 05:00 Dextrose (D50w Syringe) 50 ml Q15M PRN IV DECREASED GLUCOSE; Start 12/28/18 at 05:00 Glucagon (Glucagen) 1 mg Q15M PRN IM DECREASED GLUCOSE; Start 12/28/18 at 05:00 Glucose (Glutose) 15 gm Q15M PRN BUCCAL DECREASED GLUCOSE; Start 12/28/18 at 05:00 Atorvastatin Calcium (Lipitor) 80 mg HS PO Last administered on 01/05/19 21:53; Admin Dose 80 MG; Start 12/29/18 at 21:00 Phenol (Cepastat Lozenge) 1 lozenge Q1H PRN MT COUGH Last administered on 13:05; Admin Dose 1 LOZENGE; Start 12/28/18 at 17:30 Vancomycin HCl (Vanco Iv Per Pharmacy) VANCOMYCIN PER PHARMACY PER PROTOCOL XX ; Start 12/29/18 at 05:30 Escitalopram Oxalate (Lexapro) 10 mg DAILY PO Last administered on 01/06/19 09:02; Admin Dose 10 MG; Start 12/29/18 at 09:30 Risedronate (Actonel) 35 mg Tu@AC BREAKFAST PO ; Start 12/30/18 at 07:00 Mirtazapine (Remeron) 15 mg HS PO Last administered on 01/05/19 21:53; Admin Dose 15 MG; Start 12/29/18 at 21:00 Pantoprazole (Protonix Tab) 40 mg DAILY@06 PO Last administered on 01/06/19 05:34; Admin Dose 40 MG; Start 12/30/18 at 06:00 Docusate Sodium (Colace) 100 mg BID PO Last administered on 01/06/19 09:01; Admin Dose 100 MG; Start 12/29/18 at 18:30 Nitroglycerin/ Dextrose 250 ml @ 1.5 mls/hr TITRATE IV Last administered on 04:28; Admin Dose 1.5 MLS/HR; Start 12/31/18 at 23:00 Vancomycin HCl 250 ml @ 125 mls/hr Q48H IVPB Last administered on 01/05/19 06:05; Admin Dose 125 MLS/HR; Start 01/03/19 at 06:00 Carvedilol (Coreg) 12.5 mg BID PO Last administered on 01/06/19 09:03; Admin Dose 12.5 MG; Start 01/02/19 at 09:00 Clopidogrel Bisulfate (plaVIX) 75 mg DAILY PO Last administered on 01/06/19 09:02; Admin Dose 75 MG; Start 01/03/19 at 09:00 Isosorbide Mononitrate (Imdur) 30 mg DAILY PO Last administered on 01/06/19 09:02; Admin Dose 30 MG; Start 01/02/19 at 09:00 Furosemide (Lasix) 40 mg DAILY IV Last administered on 01/06/19 09:02; Admin Dose 40 MG; Start 01/03/19 at 09:00 Insulin Aspart (Novolog Insulin Pen) NOVOLOG *MODERATE* ALGORITHM WITH MEALS BEDTIME SC Last administered on 01/06/19 08:28; Admin Dose 2 UNIT; Start 01/02/19 at 21:00 Ranolazine (Ranexa) 1,000 mg Q12 PO Last administered on 01/06/19 09:01; Admin Dose 1,000 MG; Start 01/03/19 at 13:30 Piperacillin Sod/ Tazobactam Sod 50 ml @ 100 mls/hr Q8 IVPB Last administered on 01/06/19 05:33; Admin Dose 100 MLS/HR; Start 01/03/19 at 22:00 Miscellaneous Information (* Miscellaneous Pharmacy Order) Hold all Metformin ... ONCE XX Last administered on 01/04/19 15:43; Admin Dose 1 EA; Start 01/04/19 at 15:00; Stop 01/06/19 at 14:59 Morphine Sulfate (morphine) 1 mg Q1H PRN IV SEVERE PAIN LEVEL 7-10 Last administered on 01/06/19 04:24; Admin Dose 1 MG; Start 01/04/19 at 16:00 Assessment/Plan Hospital Course (Demo Recall) iMP: 1. s/p Acute [place]--now with unstable angina 2. CHF 3. Hypercapnic Resp Insufficiency 4. Severe CAD 5. Bacteremia 6. Acute and CKD 7. Possible aspiration pneumonia. Right upper lobe infiltrate RECS: 1. Continue diuresis, monitor creatinine 2. Follow I/O's and renal function 3. Aspiration precautions 4. BiPAP prn 5. Continue NTG gtt 6. To produce laborer as per Cards tentatively scheduled for today 7. Abx as per ID 8. Am CXR/ABG 35 min cc time [facility] REID [facility] January 06, 2019 12:41
--- NOTE | 2019-01-06 13:00 | PN ---
Date/Time of Note Date/Time of Note DATE: 01/06/19 TIME: 12:56 Assessment/Plan VTE Prophylaxis Risk score (from Ns)>0 risk: 11 SCD applied (from Ns): Yes Pharmacological prophylaxis: NA/contraindicated Pharm contraindication: low risk/ambulating Lines/Catheters IV Catheter Type (from [facility]): Peripheral IV Urinary Cath still in place: Yes Reason Cath still needed: skin wounds contaminated by urine Assessment/Plan Assessment/Plan 83 yo [place]-speaking woman with history of dementia, hypertension, dyslipidemia, severe MR and aortic stenosis, arrhythmia who presents with ACS and multi-vessel coronary artery disease. #Acute [place] #CAD - STEMI with LBBB - patient had cardiac cath on 12/28, found with: Severe 2 vessel CAD, LAD and RCA, LAD is culprit with francine 2 flow, and cardiomyopathy with LVEF 35%. Again patient also with severe aortic regurgitation and at least moderate mitral regurgitation. - Continue, Lipitor, beta-geovanny, statin, Plavix and Imdur - Per cardiology team Dr. Alvarenga and CTS Dr. Freire, patient ideally would need 2 vessel CABG (GRAF-LAD and SVG-RCA) with aortic valve repair/replacement and possibly mitral valve repair, was pending transfer to [facility] for high risk PCI to LAD and RCA, with possible staged TAVR for severe AI. - However due to acute decompensation she was taken for cath on 01/04 and got PCI to prox LAD. - Now plan for repeat cath with PCI later this week. #Acute CHF exacerbation -slowly improving - likely due to acute ischemic CAD/STEMI -status post nitro gtt - Continue NIPPV as needed for pulmonary edema. - Cautious loop diuresis, monitor BUN/creatinine levels #Bacteremia: 2 out of 2 bottles positive for coagulase-negative staph -Continue broad-spectrum antibiotics - May be due to pneumonia. Patchy lung infiltrates not completely consistent with pulmonary edema. - Will continue vanco as well as zosyn (even though staph is resistant) because there may be other gram negatives sensitive to it which didn't grow out in blood cultures. #WILLIAM: Patient has adequate urine output. -Monitor, follow-up recommendations from renal consult -For now continue IV Lasix once a day, monitor urine output and BUN/creatinine levels -No CRISTINO or ARB at this time GI: PPI Critical care time spent in patient care today equals 45 minutes. Result Diagram: 01/06/19 0431 01/06/19 0431 Subjective 24 Hr Interval Summary Free Text/Dictation Continued to have mild episodes of chest pain overnight, relieved with NG and morphine. This morning drowsy, no acute complaints. Plan for PICC line today. Patient has fragile peripheral veins, poor access. Exam/Review of Systems Exam Vitals Vital Signs Date Temp Pulse Resp B/P (MAP) Pulse Ox O2 O2 Flow FiO2 Time Delivery Rate 01/06/19 81 12:00 01/06/19 21 133/52 97 Nasal 4.0 11:00 (79) Cannula 01/06/19 98.2 08:00 01/05/19 50 20:25 Intake and Output 01/05/19 01/05/19 01/06/19 1515:00 23:00 07:00 IntakeIntake Total 600 ml 400 ml 65.5 ml OutputOutput Total 485 ml 460 ml 400 ml BalanceBalance 115 ml -60 ml -334.5 ml Exam Gen: Frail appearing elderly woman lying in bed, no acute distress HEENT: PERRL, no icterus, moist mucous membranes, clear oropharynx Neck: Supple, no JVD. Card: Regular rate and rhythm, no murmurs appreciated Pulm: Distant breath sounds bilaterally Abd: Soft, nontender, nondistended. Ext: No LE edema B/L. R groin angiogram site clean appearing, no bleeding or hematoma. Results Results 24hrs Laboratory Tests Test 01/05/19 17:01 01/05/19 19:49 01/05/19 21:51 01/06/19 04:31 Bedside Glucose 102 147 Troponin I 1.240 *H 1.420 *H White Blood Count 19.2 #H Red Blood Count 2.66 L Hemoglobin 7.9 L Hematocrit 25.8 L Mean Corpuscular 97.0 Volume Mean Corpuscular 29.7 Hemoglobin Mean Corpuscular 30.6 L Hemoglobin Concent Red Cell 17.2 H Distribution Width Platelet Count 364 Mean Platelet Volume 10.3 Immature 0.900 H Granulocytes % Neutrophils % 83.9 H Lymphocytes % 9.9 L Monocytes % 3.3 Eosinophils % 1.4 Basophils % 0.6 Nucleated Red Blood 0.2 H Cells % Immature 0.180 H Granulocytes # Neutrophils # 16.1 H Lymphocytes # 1.9 Monocytes # 0.6 Eosinophils # 0.3 Basophils # 0.1 Nucleated Red Blood 0.0 Cells # Absolute 0.091 Reticulocyte Count Percent Reticulocyte 3.5 H Count Sodium Level 147 H Potassium Level 3.8 Chloride Level 109 Carbon Dioxide Level 23 Anion Gap 15 H Blood Urea Nitrogen 48 H Creatinine 1.94 H Est Glomerular Filtrat Rate mL/min Glucose Level 169 Calcium Level 8.3 L Magnesium Level 2.4 Iron Level 39 Total Iron Binding 270 Capacity Percent Iron 14 L Saturation Ferritin 390.0 H Test 01/06/19 05:26 01/06/19 07:55 01/06/19 12:35 Creatinine Kinase MB 1.02 (Mass) Bedside Glucose 158 142 Medications Medication Current Medications IV Flush (NS 3 ml) 3 ml PER PROTOCOL IV ; Start 12/28/18 at 04:30 Ondansetron HCl (Zofran Inj) 4 mg Q6H PRN IV NAUSEA/VOMITING Last administered on 01/04/19at 08:54; Admin Dose 4 MG; Start 12/28/18 at 04:30 Aspirin (Aspirin) 81 mg DAILY PO Last administered on 01/06/19at 09:02; Admin Dose 81 MG; Start 12/28/18 at 09:00 Nitroglycerin (Nitroglycerin (Sl Tab) 0.4 Mg) 1 tab Q5M PRN SL .CHEST PAIN Last administered on 01/06/19at 04:29; Admin Dose 1 TAB; Start 12/28/18 at 04:30 Diagnostic Test (Pha) (Accu-Chek) 1 ea 02 XX Last administered on 12/31/18at 01:01; Admin Dose 1 EA; Start 12/29/18 at 02:00 Miscellaneous Information 1 ea NOTE XX ; Start 12/28/18 at 05:00 Glucose (Glutose) 15 gm Q15M PRN PO DECREASED GLUCOSE; Start 12/28/18 at 05:00 Glucose (Glutose) 22.5 gm Q15M PRN PO DECREASED GLUCOSE; Start 12/28/18 at 05:00 Dextrose (D50w Syringe) 25 ml Q15M PRN IV DECREASED GLUCOSE; Start 12/28/18 at 05:00 Dextrose (D50w Syringe) 50 ml Q15M PRN IV DECREASED GLUCOSE; Start 12/28/18 at 05:00 Glucagon (Glucagen) 1 mg Q15M PRN IM DECREASED GLUCOSE; Start 12/28/18 at 05:00 Glucose (Glutose) 15 gm Q15M PRN BUCCAL DECREASED GLUCOSE; Start 12/28/18 at 05:00 Atorvastatin Calcium (Lipitor) 80 mg HS PO Last administered on 01/05/19 21:53; Admin Dose 80 MG; Start 12/29/18 at 21:00 Phenol (Cepastat Lozenge) 1 lozenge Q1H PRN MT COUGH Last administered on 12/24 09/13at 13:05; Admin Dose 1 LOZENGE; Start 12/28/18 at 17:30 Vancomycin HCl (Vanco Iv Per Pharmacy) VANCOMYCIN PER PHARMACY PER PROTOCOL XX ; Start 12/29/18 at 05:30 Escitalopram Oxalate (Lexapro) 10 mg DAILY PO Last administered on 01/06/19 09:02; Admin Dose 10 MG; Start 12/29/18 at 09:30 Risedronate (Actonel) 35 mg Tu@AC BREAKFAST PO ; Start 12/30/18 at 07:00 Mirtazapine (Remeron) 15 mg HS PO Last administered on 01/05/19 21:53; Admin Dose 15 MG; Start 12/29/18 at 21:00 Pantoprazole (Protonix Tab) 40 mg DAILY@06 PO Last administered on 01/06/19 05:34; Admin Dose 40 MG; Start 12/30/18 at 06:00 Docusate Sodium (Colace) 100 mg BID PO Last administered on 01/06/19 09:01; Admin Dose 100 MG; Start 12/29/18 at 18:30 Nitroglycerin/ Dextrose 250 ml @ 1.5 mls/hr TITRATE IV Last administered on 01/06/19 04:28; Admin Dose 1.5 MLS/HR; Start 12/31/18 at 23:00 Vancomycin HCl 250 ml @ 125 mls/hr Q48H IVPB Last administered on 01/05/19 06:05; Admin Dose 125 MLS/HR; Start 01/03/19 at 06:00 Carvedilol (Coreg) 12.5 mg BID PO Last administered on 01/06/19 09:03; Admin Dose 12.5 MG; Start 01/02/19 at 09:00 Clopidogrel Bisulfate (plaVIX) 75 mg DAILY PO Last administered on 01/06/19 09:02; Admin Dose 75 MG; Start 01/03/19 at 09:00 Isosorbide Mononitrate (Imdur) 30 mg DAILY PO Last administered on 01/06/19 09:02; Admin Dose 30 MG; Start 01/02/19 at 09:00 Furosemide (Lasix) 40 mg DAILY IV Last administered on 01/06/19 09:02; Admin Dose 40 MG; Start 01/03/19 at 09:00 Insulin Aspart (Novolog Insulin Pen) NOVOLOG *MODERATE* ALGORITHM WITH MEALS BEDTIME SC Last administered on 01/06/19 12:43; Admin Dose 2 UNIT; Start 01/02/19 at 21:00 Ranolazine (Ranexa) 1,000 mg Q12 PO Last administered on 01/06/19 09:01; Admin Dose 1,000 MG; Start 01/03/19 at 13:30 Piperacillin Sod/ Tazobactam Sod 50 ml @ 100 mls/hr Q8 IVPB Last administered on 01/06/19 05:33; Admin Dose 100 MLS/HR; Start 01/03/19 at 22:00 Miscellaneous Information (* Miscellaneous Pharmacy Order) Hold all Metformin ... ONCE XX Last administered on 01/04/19 15:43; Admin Dose 1 EA; Start 01/04/19 at 15:00; Stop 01/06/19 at 14:59 Morphine Sulfate (morphine) 1 mg Q1H PRN IV SEVERE PAIN LEVEL 7-10 Last administered on 01/06/19 04:24; Admin Dose 1 MG; Start 01/04/19 at 16:00 Polyethylene Glycol (Miralax) 17 gm BID PRN PO CONSTIPATION; Start 01/06/19 at 13:00 ANAM TOMPKINS MD January 06, 2019 13:00
[2019-01-06] MEDS: POLYETHYLENE GLYCOL 17 GM PACKET PO PRN (13:44)
--- NOTE | 2019-01-06 13:56 | CONS ---
Assessment/Plan Assessment/Plan Assessment/Plan (Daily) 1. Acute kidney injury on CKD III 2/2 Hemodynamics from CHF + NSTEMI 2. Hypokalemia 3. Hypernatremia 4. acute NSTEMI s/p LHC showed multivessel obstructive CAD - s/p Successful PTCA and stenting of proximal left anterior descending artery using a 3 x 20 mm Synergy drug-eluting stent on 01/04/19 5. CAD mulitivessels obstructive 6. Anemia of Chronic disease Plan: BUN/Cr improved slighlty to 48/1.94, Na 147, other electrolytes stable s/p Successful PTCA and stenting of proximal left anterior descending artery using a 3 x 20 mm Synergy drug-eluting stent on 01/04/19- plan for PCI to proximal RCA tomorrow - will give IVF NS at 50 cc/hr IV abx zosyn, renally dosed for bacteremia, renally dose all abx and monitor electrolytes IV lasix 40mg IV daily, s/p LOUIE on 12/30/18 showed severe AI and no vegetations, Cr bumped to 2.0 - As per [employer] discussion with Primary caridology pt has chronic AI and CKD- After discussion pt deemed high risk for CABG so recommended for transfer to [facility] for staged complex PCI of LAD and RCA, and possible staged TAVR- family in agreement for transfer- awaiting bed availability will continue to follow up Consultation Date/Type/Reason Admit Date/Time December 28, 2018 at 03:23 Initial Consult Date 12/28/18 Type of Consult NEPHROLOGY Requesting Provider: KRYSTAL BERNARD Date/Time of Note DATE: 01/06/19 TIME: 13:56 24 HR Interval Summary Free Text/Dictation plan for PICC Line placement today, BUN/Cr slightly better, BP stable, pt c/o c hest pain, troponin elevated Subjective hx not possible: pt non-verbal Exam/Review of Systems Exam Vitals Vital Signs Date Temp Pulse Resp B/P (MAP) Pulse Ox O2 O2 Flow FiO2 Time Delivery Rate 01/06/19 81 12:00 01/06/19 21 133/52 97 Nasal 4.0 11:00 (79) Cannula 01/06/19 98.2 08:00 01/05/19 50 20:25 Intake and Output 5/01/05/19 01/06/19 1515:00 23:00 07:00 IntakeIntake Total 600 ml 400 ml 65.5 ml OutputOutput Total 485 ml 460 ml 400 ml BalanceBalance 115 ml -60 ml -334.5 ml Exam Gen: Frail , no acute distress Eyes: PERRL, no icterus HEENT: Moist mucous membranes, clear oropharynx Neck: + JVD ,, no lymphadenopathy Card: Regular rate and rhythm, no murmurs appreciated Pulm: Rales throughout. Abd: Soft, nontender, nondistended. Ext: No cyanosis/clubbing/edema. Results Result Diagram: 01/06/19 0431 01/06/19 043 Results 24hrs Laboratory Tests Test 01/05/19 17:01 01/05/19 19:49 01/05/19 21:51 01/06/19 04:31 Bedside Glucose 102 147 Troponin I 1.240 *H 1.420 *H White Blood Count 19.2 #H Red Blood Count 2.66 L Hemoglobin 7.9 L Hematocrit 25.8 L Mean Corpuscular 97.0 Volume Mean Corpuscular 29.7 Hemoglobin Mean Corpuscular 30.6 L Hemoglobin Concent Red Cell 17.2 H Distribution Width Platelet Count 364 Mean Platelet Volume 10.3 Immature 0.900 H Granulocytes % Neutrophils % 83.9 H Lymphocytes % 9.9 L Monocytes % 3.3 Eosinophils % 1.4 Basophils % 0.6 Nucleated Red Blood 0.2 H Cells % Immature 0.180 H Granulocytes # Neutrophils # 16.1 H Lymphocytes # 1.9 Monocytes # 0.6 Eosinophils # 0.3 Basophils # 0.1 Nucleated Red Blood 0.0 Cells # Absolute 0.091 Reticulocyte Count Percent Reticulocyte 3.5 H Count Sodium Level 147 H Potassium Level 3.8 Chloride Level 109 Carbon Dioxide Level 23 Anion Gap 15 H Blood Urea Nitrogen 48 H Creatinine 1.94 H Est Glomerular Filtrat Rate mL/min Glucose Level 169 Calcium Level 8.3 L Magnesium Level 2.4 Iron Level 39 Total Iron Binding 270 Capacity Percent Iron 14 L Saturation Ferritin 390.0 H Test 01/06/19 05:26 01/06/19 07:55 01/06/19 12:35 Creatinine Kinase MB 1.02 (Mass) Bedside Glucose 158 142 Medications Medication Current Medications IV Flush (NS 3 ml) 3 ml PER PROTOCOL IV ; Start 12/28/18 at 04:30 Ondansetron HCl (Zofran Inj) 4 mg Q6H PRN IV NAUSEA/VOMITING Last administered on 01/04/19at 08:54; Admin Dose 4 MG; Start 12/28/18 at 04:30 Aspirin (Aspirin) 81 mg DAILY PO Last administered on 01/06/19at 09:02; Admin Dose 81 MG; Start 12/28/18 at 09:00 Nitroglycerin (Nitroglycerin (Sl Tab) 0.4 Mg) 1 tab Q5M PRN SL .CHEST PAIN Last administered on 01/06/19at 04:29; Admin Dose 1 TAB; Start 12/28/18 at 04:30 Diagnostic Test (Pha) (Accu-Chek) 1 ea 02 XX Last administered on 12/31/18at 01:01; Admin Dose 1 EA; Start 12/29/18 at 02:00 Miscellaneous Information 1 ea NOTE XX ; Start 12/28/18 at 05:00 Glucose (Glutose) 15 gm Q15M PRN PO DECREASED GLUCOSE; Start 12/28/18 at 05:00 Glucose (Glutose) 22.5 gm Q15M PRN PO DECREASED GLUCOSE; Start 12/28/18 at 05:00 Dextrose (D50w Syringe) 25 ml Q15M PRN IV DECREASED GLUCOSE; Start 12/28/18 at 05:00 Dextrose (D50w Syringe) 50 ml Q15M PRN IV DECREASED GLUCOSE; Start 12/28/18 at 05:00 Glucagon (Glucagen) 1 mg Q15M PRN IM DECREASED GLUCOSE; Start 12/28/18 at 05:00 Glucose (Glutose) 15 gm Q15M PRN BUCCAL DECREASED GLUCOSE; Start 12/28/18 at 05:00 Atorvastatin Calcium (Lipitor) 80 mg HS PO Last administered on 01/05/19at 21:53; Admin Dose 80 MG; Start 12/29/18 at 21:00 Phenol (Cepastat Lozenge) 1 lozenge Q1H PRN MT COUGH Last administered on 01/03/19at 13:05; Admin Dose 1 LOZENGE; Start 12/28/18 at 17:30 Vancomycin HCl (Vanco Iv Per Pharmacy) VANCOMYCIN PER PHARMACY PER PROTOCOL XX ; Start 12/29/18 at 05:30 Escitalopram Oxalate (Lexapro) 10 mg DAILY PO Last administered on 01/06/19 09:02; Admin Dose 10 MG; Start 12/29/18 at 09:30 Risedronate (Actonel) 35 mg Tu@AC BREAKFAST PO ; Start 12/30/18 at 07:00 Mirtazapine (Remeron) 15 mg HS PO Last administered on 01/05/19 21:53; Admin Dose 15 MG; Start 12/29/18 at 21:00 Pantoprazole (Protonix Tab) 40 mg DAILY@06 PO Last administered on 01/06/19 05:34; Admin Dose 40 MG; Start 12/30/18 at 06:00 Docusate Sodium (Colace) 100 mg BID PO Last administered on 01/06/19 09:01; Admin Dose 100 MG; Start 12/29/18 at 18:30 Nitroglycerin/ Dextrose 250 ml @ 1.5 mls/hr TITRATE IV Last administered on 01/06/19 04:28; Admin Dose 1.5 MLS/HR; Start 12/31/18 at 23:00 Vancomycin HCl 250 ml @ 125 mls/hr Q48H IVPB Last administered on 01/05/19 06:05; Admin Dose 125 MLS/HR; Start 01/03/19 at 06:00 Carvedilol (Coreg) 12.5 mg BID PO Last administered on 01/06/19 09:03; Admin Dose 12.5 MG; Start 01/02/19 at 09:00 Clopidogrel Bisulfate (plaVIX) 75 mg DAILY PO Last administered on 01/06/19 09:02; Admin Dose 75 MG; Start 01/03/19 at 09:00 Isosorbide Mononitrate (Imdur) 30 mg DAILY PO Last administered on 01/06/19 09:02; Admin Dose 30 MG; Start 01/02/19 at 09:00 Furosemide (Lasix) 40 mg DAILY IV Last administered on 01/06/19 09:02; Admin Dose 40 MG; Start 01/03/19 at 09:00 Insulin Aspart (Novolog Insulin Pen) NOVOLOG *MODERATE* ALGORITHM WITH MEALS BEDTIME SC Last administered on 01/06/19 12:43; Admin Dose 2 UNIT; Start 01/02/19 at 21:00 Ranolazine (Ranexa) 1,000 mg Q12 PO Last administered on 01/06/19 09:01; Admin Dose 1,000 MG; Start 01/03/19 at 13:30 Piperacillin Sod/ Tazobactam Sod 50 ml @ 100 mls/hr Q8 IVPB Last administered on 01/06/19 13:44; Admin Dose 100 MLS/HR; Start 01/03/19 at 22:00 Miscellaneous Information (* Miscellaneous Pharmacy Order) Hold all Metformin ... ONCE XX Last administered on 01/04/19 15:43; Admin Dose 1 EA; Start 01/04/19 at 15:00; Stop 01/06/19 at 14:59 Morphine Sulfate (morphine) 1 mg Q1H PRN IV SEVERE PAIN LEVEL 7-10 Last administered on 01/06/19 04:24; Admin Dose 1 MG; Start 01/04/19 at 16:00 Polyethylene Glycol (Miralax) 17 gm BID PRN PO CONSTIPATION Last administered on 01/06/19 13:44; Admin Dose 17 GM; Start 01/06/19 at 13:00 PATTI CALLEJAS MD January 06, 2019 13:56
[2019-01-06] MEDS ORDERED: SOD CHLORIDE 0.9% 1,000 ML IV SCH (14:57)
[2019-01-06] MEDS ORDERED: DIPHENHYDRAMINE 50 MG CAP PO ONE (15:00)
[2019-01-06] MEDS ORDERED: DIAZEPAM 5 MG TAB PO ONE (15:00)
--- NOTE | 2019-01-06 15:07 | CONS ---
Assessment/Plan Assessment/Plan Hospital Course (Demo Recall) 83 yo with STEMI/new LBBB, with severe 2V CAD, culprit lesion is LAD with SHERIN 2 flow on cath, with ischemic cardiomyopathy, lvef 40-45% and severe aortic regurgitation. LOUIE negative for vegetations. Course complicated by acute heart failure, and recurrent chest pain. Underwent urgent PCI to mid LAD on Saturday. Plan for PCI to proximal RCA tomorrow morning. Imp: AL with new LBBB, and recurrence of chest pain Acute systolic heart failure, improved Severe aortic regurgitation which is chronic per Dr. 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 Again today,plan discussed with , her decision maker, he agrees to proceed. Case discussed yesterday with Dr. Archuleta If chest pain persists even after complete percutaneous revascularization, consider lexiscan/adenosine nuclear stress testing Consultation Date/Type/Reason Admit Date/Time December 28, 2018 at 03:23 Initial Consult Date 12/28/18 Type of Consult Cardiology Requesting Provider: KRYSTAL BERNARD Date/Time of Note DATE: 01/06/19 TIME: 15:01 24 HR Interval Summary Free Text/Dictation I spoke to the patient and her today with the Portuguese phone business process architect. Patient continues to have chest discomfort. She had some last night, and this morning, and at present complains of a mild upper chest pain. Exam/Review of Systems Vital Signs Vitals Vital Signs Date Temp Pulse Resp B/P (MAP) Pulse Ox O2 O2 Flow FiO2 Time Delivery Rate 01/06/19 81 12:00 01/06/19 21 133/52 97 Nasal 4.0 11:00 (79) Cannula 01/06/19 98.2 08:00 01/05/19 50 20:25 Intake and Output 01/05/19 01/05/19 01/06/19 1515:00 23:00 07:00 IntakeIntake Total 600 ml 400 ml 65.5 ml OutputOutput Total 485 ml 460 ml 400 ml BalanceBalance 115 ml -60 ml -334.5 ml Exam Constitutional: alert Psych: no complaints, nl mood/affect Head: normocephalic, atraumatic Eyes: EOMI, nl lids ENMT: nl external ears & nose Neck: No jvd, No bruits Respiratory: clear to auscultation, normal air movement Cardiovascular: regular rate and rhythm, murmurs/extra sounds Gastrointestinal: soft, non-tender Musculoskeletal: nl extremities to inspection Extremities: No edema Neurological: nl speech Skin: nl turgor, ecchymosis Labs Result Diagram: 01/06/19 0431 01/06/19 0431 Results 24hrs Laboratory Tests Test 01/05/19 17:01 01/05/19 19:49 01/05/19 21:51 01/06/19 04:31 Bedside Glucose 102 147 Troponin I 1.240 *H 1.420 *H White Blood Count 19.2 #H Red Blood Count 2.66 L Hemoglobin 7.9 L Hematocrit 25.8 L Mean Corpuscular 97.0 Volume Mean Corpuscular 29.7 Hemoglobin Mean Corpuscular 30.6 L Hemoglobin Concent Red Cell 17.2 H Distribution Width Platelet Count 364 Mean Platelet Volume 10.3 Immature 0.900 H Granulocytes % Neutrophils % 83.9 H Lymphocytes % 9.9 L Monocytes % 3.3 Eosinophils % 1.4 Basophils % 0.6 Nucleated Red Blood 0.2 H Cells % Immature 0.180 H Granulocytes # Neutrophils # 16.1 H Lymphocytes # 1.9 Monocytes # 0.6 Eosinophils # 0.3 Basophils # 0.1 Nucleated Red Blood 0.0 Cells # Absolute 0.091 Reticulocyte Count Percent Reticulocyte 3.5 H Count Sodium Level 147 H Potassium Level 3.8 Chloride Level 109 Carbon Dioxide Level 23 Anion Gap 15 H Blood Urea Nitrogen 48 H Creatinine 1.94 H Est Glomerular Filtrat Rate mL/min Glucose Level 169 Calcium Level 8.3 L Magnesium Level 2.4 Iron Level 39 Total Iron Binding 270 Capacity Percent Iron 14 L Saturation Ferritin 390.0 H Test 01/06/19 05:26 01/06/19 07:55 01/06/19 12:35 Creatinine Kinase MB 1.02 (Mass) Bedside Glucose 158 142 Medications Medications Current Medications IV Flush (NS 3 ml) 3 ml PER PROTOCOL IV ; Start 12/28/18 at 04:30 Ondansetron HCl (Zofran Inj) 4 mg Q6H PRN IV NAUSEA/VOMITING Last administered on 01/04/19at 08:54; Admin Dose 4 MG; Start 12/28/18 at 04:30 Aspirin (Aspirin) 81 mg DAILY PO Last administered on 01/06/19at 09:02; Admin Dose 81 MG; Start 12/28/18 at 09:00 Nitroglycerin (Nitroglycerin (Sl Tab) 0.4 Mg) 1 tab Q5M PRN SL .CHEST PAIN Last administered on 01/06/19at 04:29; Admin Dose 1 TAB; Start 12/28/18 at 04:30 Diagnostic Test (Pha) (Accu-Chek) 1 ea 02 XX Last administered on 12/31/18at 0 1:01; Admin Dose 1 EA; Start 12/29/18 at 02:00 Miscellaneous Information 1 ea NOTE XX ; Start 12/28/18 at 05:00 Glucose (Glutose) 15 gm Q15M PRN PO DECREASED GLUCOSE; Start 12/28/18 at 05:00 Glucose (Glutose) 22.5 gm Q15M PRN PO DECREASED GLUCOSE; Start 12/28/18 at 05:00 Dextrose (D50w Syringe) 25 ml Q15M PRN IV DECREASED GLUCOSE; Start 12/28/18 at 05:00 Dextrose (D50w Syringe) 50 ml Q15M PRN IV DECREASED GLUCOSE; Start 12/28/18 at 05:00 Glucagon (Glucagen) 1 mg Q15M PRN IM DECREASED GLUCOSE; Start 12/28/18 at 05:00 Glucose (Glutose) 15 gm Q15M PRN BUCCAL DECREASED GLUCOSE; Start 12/28/18 at 05: 00 Atorvastatin Calcium (Lipitor) 80 mg HS PO Last administered on 01/05/19at 21:53; Admin Dose 80 MG; Start 12/29/18 at 21:00 Phenol (Cepastat Lozenge) 1 lozenge Q1H PRN MT COUGH Last administered on 01/03/19at 13:05; Admin Dose 1 LOZENGE; Start 12/28/18 at 17:30 Vancomycin HCl (Vanco Iv Per Pharmacy) VANCOMYCIN PER PHARMACY PER PROTOCOL XX ; Start 12/29/18 at 05:30 Escitalopram Oxalate (Lexapro) 10 mg DAILY PO Last administered on 01/06/19 09:02; Admin Dose 10 MG; Start 12/29/18 at 09:30 Risedronate (Actonel) 35 mg Tu@AC BREAKFAST PO ; Start 12/30/18 at 07:00 Mirtazapine (Remeron) 15 mg HS PO Last administered on 01/05/19 21:53; Admin Dose 15 MG; Start 12/29/18 at 21:00 Pantoprazole (Protonix Tab) 40 mg DAILY@06 PO Last administered on 01/06/19 05:34; Admin Dose 40 MG; Start 12/30/18 at 06:00 Docusate Sodium (Colace) 100 mg BID PO Last administered on 01/06/19 09:01; Admin Dose 100 MG; Start 12/29/18 at 18:30 Nitroglycerin/ Dextrose 250 ml @ 1.5 mls/hr TITRATE IV Last administered on 01/06/19 04:28; Admin Dose 1.5 MLS/HR; Start 12/31/18 at 23:00 Vancomycin HCl 250 ml @ 125 mls/hr Q48H IVPB Last administered on 01/05/19 06:05; Admin Dose 125 MLS/HR; Start 01/03/19 at 06:00 Carvedilol (Coreg) 12.5 mg BID PO Last administered on 01/06/19 09:03; Admin Dose 12.5 MG; Start 01/02/19 at 09:00 Clopidogrel Bisulfate (plaVIX) 75 mg DAILY PO Last administered on 01/06/19 09:02; Admin Dose 75 MG; Start 01/03/19 at 09:00 Isosorbide Mononitrate (Imdur) 30 mg DAILY PO Last administered on 01/06/19 09:02; Admin Dose 30 MG; Start 01/02/19 at 09:00 Furosemide (Lasix) 40 mg DAILY IV Last administered on 01/06/19 09:02; Admin Dose 40 MG; Start 01/03/19 at 09:00 Insulin Aspart (Novolog Insulin Pen) NOVOLOG *MODERATE* ALGORITHM WITH MEALS BEDTIME SC Last administered on 01/06/19 12:43; Admin Dose 2 UNIT; Start 01/02/19 at 21:00 Ranolazine (Ranexa) 1,000 mg Q12 PO Last administered on 01/06/19 09:01; Admin Dose 1,000 MG; Start 01/03/19 at 13:30 Piperacillin Sod/ Tazobactam Sod 50 ml @ 100 mls/hr Q8 IVPB Last administered on 01/06/19 13:44; Admin Dose 100 MLS/HR; Start 01/03/19 at 22:00 Morphine Sulfate (morphine) 1 mg Q1H PRN IV SEVERE PAIN LEVEL 7-10 Last admi nistered on 01/06/19 04:24; Admin Dose 1 MG; Start 01/04/19 at 16:00 Polyethylene Glycol (Miralax) 17 gm BID PRN PO CONSTIPATION Last administered on 01/06/19 13:44; Admin Dose 17 GM; Start 01/06/19 at 13:00 Diazepam (Valium) 5 mg OC ONCE PO ; Start 01/06/19 at 15:00; Stop 01/06/19 at 15:01; Status UNV Diphenhydramine HCl (Benadryl) 25 mg OC ONCE PO ; Start 01/06/19 at 15:00; Stop 01/06/19 at 15:01; Status UNV Sodium Chloride 1,000 ml @ 75 mls/hr [id number] IV ; Start 01/06/19 at 14:57; [facility] UNV RODRIGUEZ GARZA January 06, 2019 15:07
[2019-01-06] MEDS ORDERED: BISACODYL 10 MG SUPP PR PRN (19:00)
--- NOTE | 2019-01-06 20:27 | RADRPT ---
Vent Rate: 95 bpm RR Interval: 0 msec FL Interval: 170 msec QRS Duration: 180 msec QT Interval: 448 msec QTC Interval: 562 msec P-R-T [place]: 76 - 15 - 164 degrees Normal sinus rhythm Left bundle branch block Abnormal ECG Electronically Signed By: Pepe Lilly
[2019-01-06] MEDS: MIRTAZAPINE 15 MG TAB PO SCH (22:32)
[2019-01-06] MEDS: SOD CHLORIDE 0.9% 1,000 ML IV SCH (22:33)
[2019-01-06] MEDS: ATORVASTATIN 80 MG TAB PO SCH (22:36)
[2019-01-07] VITALS (55 sets, daily range): BP systolic 121–152; BP diastolic 36–73; PULSE 70–93; RESP 16–41
[2019-01-07] MEDS: ACCU-CHEK XX SCH (01:42)
[2019-01-07] MEDS ORDERED: DIPHENHYDRAMINE 50 MG INJ IV ONE ×2 (02:00→22:00)
[2019-01-07] MEDS: morphine 2 MG INJ IV PRN ×2 (02:39→20:29)
[2019-01-07] MEDS: INSULIN ASPART [NOVOLOG] 3 ML PEN SC SCH ×5 (05:00→20:37)
[2019-01-07] MEDS: PIPER-TAZO 2.25 GM (PMX) 50 ML IVPB SCH ×3 (05:41→21:53)
[2019-01-07] MEDS: PANTOPRAZOLE (EC) 40 MG TAB PO SCH (05:43)
[2019-01-07] MEDS: VANCOMYCIN 1 GM 250 ML IVPB SCH (07:03)
--- NOTE | 2019-01-07 08:37 | CONS ---
Assessment/Plan Assessment/Plan Assessment/Plan (Daily) 1. Acute kidney injury on CKD III 2/2 Hemodynamics from CHF + NSTEMI 2. Hypokalemia 3. Hypernatremia 4. acute NSTEMI s/p LHC showed multivessel obstructive CAD - s/p Successful PTCA and stenting of proximal left anterior descending artery using a 3 x 20 mm Synergy drug-eluting stent on 01/04/19 5. CAD mulitivessels obstructive 6. Anemia of Chronic disease Plan: BUN/Cr improved slighlty to 48/1.76, K 3.4, Na normal, K replacement has been ordered for today s/p Successful PTCA and stenting of proximal left anterior descending artery using a 3 x 20 mm Synergy drug-eluting stent on 01/04/19- Today Caridac cath cancelled due to Drop in her Hb- plan for PCI to proximal RCA tomorrow - will give IVF NS at 50 cc/hr IV abx zosyn, renally dosed for bacteremia, renally dose all abx and monitor electrolytes IV lasix 40mg IV daily, s/p LOUIE on 12/30/18 showed severe AI and no vegetations, will continue to follow up Consultation Date/Type/Reason Admit Date/Time December 28, 2018 at 03:23 Initial Consult Date 12/28/18 Type of Consult NEPHROLOGY Requesting Provider: KRYSTAL BERNARD Date/Time of Note DATE: 01/07/19 TIME: 08:37 Exam/Review of Systems Exam Vitals Vital Signs Date Temp Pulse Resp B/P (MAP) Pulse Ox O2 O2 Flow FiO2 Time Delivery Rate 01/07/19 75 22 137/44 94 07:45 (75) 01/07/19 Nasal 4.0 07:00 Cannula 01/07/19 98.1 04:00 01/05/19 50 20:25 Intake and Output 01/06/19 01/06/19 01/07/19 1515:00 23:00 07:00 IntakeIntake Total 210 ml 412.0 ml 653.5 ml OutputOutput Total 470 ml 330 ml 440 ml BalanceBalance -260 ml 82.0 ml 213.5 ml Exam Gen: Frail , no acute distress Eyes: PERRL, no icterus HEENT: Moist mucous membranes, clear oropharynx Neck: + JVD ,, no lymphadenopathy Card: Regular rate and rhythm, no murmurs appreciated Pulm: Rales throughout. Abd: Soft, nontender, nondistended. Ext: No cyanosis/clubbing/edema. Results Result Diagram: 01/07/19 0430 01/07/19 043 Results 24hrs Laboratory Tests Test 01/06/19 12:35 01/06/19 17:23 01/06/19 22:46 01/07/19 01:26 Bedside Glucose 142 124 183 186 Test 01/07/19 02:36 01/07/19 04:30 01/07/19 05:38 Bedside Glucose 187 181 White Blood Count 21.2 H Red Blood Count 2.33 L Hemoglobin 6.9 *L Hematocrit 22.9 L Mean Corpuscular 98.3 Volume Mean Corpuscular 29.6 Hemoglobin Mean Corpuscular 30.1 L Hemoglobin Concent Red Cell 17.2 H Distribution Width Platelet Count 322 Mean Platelet Volume 9.8 Immature 1.100 H Granulocytes % Neutrophils % 88.4 H Lymphocytes % 5.7 L Monocytes % 3.1 Eosinophils % 1.4 Basophils % 0.3 Nucleated Red Blood 0.0 Cells % Immature 0.230 H Granulocytes # Neutrophils # 18.8 H Lymphocytes # 1.2 Monocytes # 0.7 Eosinophils # 0.3 Basophils # 0.1 Nucleated Red Blood 0.0 Cells # Prothrombin Time 18.0 H Prothrombin Time 1.4 Ratio INR International 1.48 Normalized Ratio Activated 41.4 H Partial Thromboplast Time Sodium Level 144 Potassium Level 3.4 L Chloride Level 109 Carbon Dioxide Level 28 Anion Gap 7 # Blood Urea Nitrogen 48 H Creatinine 1.76 H Est Glomerular Filtrat Rate mL/min Glucose Level 145 Calcium Level 8.1 L Medications Medication Current Medications IV Flush (NS 3 ml) 3 ml PER PROTOCOL IV ; Start 12/28/18 at 04:30 Ondansetron HCl (Zofran Inj) 4 mg Q6H PRN IV NAUSEA/VOMITING Last administered on 01/04/19at 08:54; Admin Dose 4 MG; Start 12/28/18 at 04:30 Aspirin (Aspirin) 81 mg DAILY PO Last administered on 01/06/19at 09:02; Admin Dose 81 MG; Start 12/28/18 at 09:00 Nitroglycerin (Nitroglycerin (Sl Tab) 0.4 Mg) 1 tab Q5M PRN SL .CHEST PAIN Last administered on 01/06/19at 04:29; Admin Dose 1 TAB; Start 12/28/18 at 04:30 Diagnostic Test (Pha) (Accu-Chek) 1 ea 02 XX Last administered on 01/07/19at 01:42; Admin Dose 1 EA; Start 12/29/18 at 02:00 Miscellaneous Information 1 ea NOTE XX ; Start 12/28/18 at 05:00 Glucose (Glutose) 15 gm Q15M PRN PO DECREASED GLUCOSE; Start 12/28/18 at 05:00 Glucose (Glutose) 22.5 gm Q15M PRN PO DECREASED GLUCOSE; Start 12/28/18 at 05:00 Dextrose (D50w Syringe) 25 ml Q15M PRN IV DECREASED GLUCOSE; Start 12/28/18 at 05:00 Dextrose (D50w Syringe) 50 ml Q15M PRN IV DECREASED GLUCOSE; Start 12/28/18 at 05:00 Glucagon (Glucagen) 1 mg Q15M PRN IM DECREASED GLUCOSE; Start 12/28/18 at 05:00 Glucose (Glutose) 15 gm Q15M PRN BUCCAL DECREASED GLUCOSE; Start 12/28/18 at 05:00 Atorvastatin Calcium (Lipitor) 80 mg HS PO Last administered on 01/06/19at 22:36; Admin Dose 80 MG; Start 12/29/18 at 21:00 Phenol (Cepastat Lozenge) 1 lozenge Q1H PRN MT COUGH Last administered on 12/24 09/13at 13:05; Admin Dose 1 LOZENGE; Start 12/28/18 at 17:30 Vancomycin HCl (Vanco Iv Per Pharmacy) VANCOMYCIN PER PHARMACY PER PROTOCOL XX ; Start 12/29/18 at 05:30 Escitalopram Oxalate (Lexapro) 10 mg DAILY PO Last administered on 01/06/19at 09:02; Admin Dose 10 MG; Start 12/29/18 at 09:30 Risedronate (Actonel) 35 mg Tu@AC BREAKFAST PO ; Start 12/30/18 at 07:00 Mirtazapine (Remeron) 15 mg HS PO Last administered on 01/06/19at 22:32; Admin Dose 15 MG; Start 12/29/18 at 21:00 Pantoprazole (Protonix Tab) 40 mg DAILY@06 PO Last administered on 01/07/19at 05:43; Admin Dose 40 MG; Start 12/30/18 at 06:00 Docusate Sodium (Colace) 100 mg BID PO Last administered on 01/06/19 22:32; Admin Dose 100 MG; Start 12/29/18 at 18:30 Nitroglycerin/ Dextrose 250 ml @ 1.5 mls/hr TITRATE IV Last administered on 01/06/19 19:44; Admin Dose 10.5 MLS/HR; Start 12/31/18 at 23:00 Vancomycin HCl 250 ml @ 125 mls/hr Q48H IVPB Last administered on 01/07/19 07:03; Admin Dose 125 MLS/HR; Start 01/03/19 at 06:00 Clopidogrel Bisulfate (plaVIX) 75 mg DAILY PO Last administered on 01/06/19 09:02; Admin Dose 75 MG; Start 01/03/19 at 09:00 Isosorbide Mononitrate (Imdur) 30 mg DAILY PO Last administered on 01/06/19 09:02; Admin Dose 30 MG; Start 01/02/19 at 09:00 Furosemide (Lasix) 40 mg DAILY IV Last administered on 01/06/19 09:02; Admin Dose 40 MG; Start 01/03/19 at 09:00 Ranolazine (Ranexa) 1,000 mg Q12 PO Last administered on 01/06/19 22:32; Admin Dose 1,000 MG; Start 01/03/19 at 13:30 Piperacillin Sod/ Tazobactam Sod 50 ml @ 100 mls/hr Q8 IVPB Last administered on 01/07/19 05:41; Admin Dose 100 MLS/HR; Start 01/03/19 at 22:00 Morphine Sulfate (morphine) 1 mg Q1H PRN IV SEVERE PAIN LEVEL 7-10 Last administered on 01/07/19 02:39; Admin Dose 1 MG; Start 01/04/19 at 16:00 Polyethylene Glycol (Miralax) 17 gm BID PRN PO CONSTIPATION Last administered on 01/06/19 13:44; Admin Dose 17 GM; Start 01/06/19 at 13:00 Carvedilol (Coreg) 25 mg BID PO Last administered on 01/06/19 22:32; Admin Dos e 25 MG; Start 01/06/19 at 21:00 IV Flush (NS 10 ml) 10 ml PRN PRN IV flush; Start 01/06/19 at 18:30 Bisacodyl (Dulcolax Supp) 10 mg DAILY PRN MT CONSTIPATION; Start 01/06/19 at 19:00 Sodium Chloride 1,000 ml @ 50 mls/hr Q20H IV Last administered on 01/06/19at 22:33; Admin Dose 50 MLS/HR; Start 01/06/19 at 21:00 Insulin Aspart (Novolog Insulin Pen) NOVOLOG *MILD* ALGORI... Q4 SC ; Start 01/07/19 at 05:00 PATTI CALLEJAS MD January 07, 2019 08:37
--- NOTE | 2019-01-07 09:31 | CONS ---
Assessment/Plan Assessment/Plan Hospital Course (Demo Recall) 83 yo with STEMI/new LBBB, with severe 2V CAD, culprit lesion is LAD with SHERIN 2 flow on cath, with ischemic cardiomyopathy, lvef 40-45% and severe aortic regurgitation. LOUIE negative for vegetations. Course complicated by acute heart failure, and recurrent chest pain. Underwent urgent PCI to mid LAD on Saturday. Patient anemic this am and being transfused, so plan is for PCI to the proximal RCA tomorrow afternoon around 3:30. 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 Replete K Stop nitro drip If chest pain persists even after complete percutaneous revascularization, consider lexiscan/adenosine nuclear stress testing Consultation Date/Type/Reason Admit Date/Time December 28, 2018 at 03:23 Initial Consult Date 12/28/18 Type of Consult Cardiology Requesting Provider: KRYSTAL BERNARD Date/Time of Note DATE: 01/07/19 TIME: 09:28 24 HR Interval Summary Free Text/Dictation Hgb this am 6.9, cath cancelled, she is being transfused 1 unit prbc's. She appears comfortable but states mid chest pain. She complains of thirst. Exam/Review of Systems Vital Signs Vitals Vital Signs Date Temp Pulse Resp B/P (MAP) Pulse Ox O2 O2 Flow FiO2 Time Delivery Rate 01/07/19 75 22 137/44 94 07:45 (75) 01/07/19 Nasal 4.0 07:00 Cannula 01/07/19 98.1 04:00 01/05/19 50 20:25 Intake and Output 01/06/19 01/06/19 01/07/19 1515:00 23:00 07:00 IntakeIntake Total 210 ml 412.0 ml 653.5 ml OutputOutput Total 470 ml 330 ml 440 ml BalanceBalance -260 ml 82.0 ml 213.5 ml Exam Constitutional: alert Psych: nl mood/affect Head: normocephalic, atraumatic Eyes: EOMI, nl lids ENMT: nl external ears & nose Neck: No jvd, No bruits Respiratory: clear to auscultation Cardiovascular: regular rate and rhythm, murmurs/extra sounds Gastrointestinal: soft, non-tender Musculoskeletal: nl extremities to inspection Extremities: No edema Neurological: nl speech Skin: nl turgor Labs Result Diagram: 01/07/19 0430 01/07/19 0430 Results 24hrs Laboratory Tests Test 01/06/19 12:35 01/06/19 17:23 01/06/19 22:46 01/07/19 01:26 Bedside Glucose 142 124 183 186 Test 01/07/19 02:36 01/07/19 04:30 01/07/19 05:38 Bedside Glucose 187 181 White Blood Count 21.2 H Red Blood Count 2.33 L Hemoglobin 6.9 *L Hematocrit 22.9 L Mean Corpuscular 98.3 Volume Mean Corpuscular 29.6 Hemoglobin Mean Corpuscular 30.1 L Hemoglobin Concent Red Cell 17.2 H Distribution Width Platelet Count 322 Mean Platelet Volume 9.8 Immature 1.100 H Granulocytes % Neutrophils % 88.4 H Lymphocytes % 5.7 L Monocytes % 3.1 Eosinophils % 1.4 Basophils % 0.3 Nucleated Red Blood 0.0 Cells % Immature 0.230 H Granulocytes # Neutrophils # 18.8 H Lymphocytes # 1.2 Monocytes # 0.7 Eosinophils # 0.3 Basophils # 0.1 Nucleated Red Blood 0.0 Cells # Prothrombin Time 18.0 H Prothrombin Time 1.4 Ratio INR International 1.48 Normalized Ratio Activated 41.4 H Partial Thromboplast Time Sodium Level 144 Potassium Level 3.4 L Chloride Level 109 Carbon Dioxide Level 28 Anion Gap 7 # Blood Urea Nitrogen 48 H Creatinine 1.76 H Est Glomerular Filtrat Rate mL/min Glucose Level 145 Calcium Level 8.1 L Medications Medications Current Medications IV Flush (NS 3 ml) 3 ml PER PROTOCOL IV ; Start 12/28/18 at 04:30 Ondansetron HCl (Zofran Inj) 4 mg Q6H PRN IV NAUSEA/VOMITING Last administered on 01/04/19 08:54; Admin Dose 4 MG; Start 12/28/18 at 04:30 Aspirin (Aspirin) 81 mg DAILY PO Last administered on 01/06/19at 09:02; Admin Dose 81 MG; Start 12/28/18 at 09:00 Nitroglycerin (Nitroglycerin (Sl Tab) 0.4 Mg) 1 tab Q5M PRN SL .CHEST PAIN Last administered on 01/06/19 04:29; Admin Dose 1 TAB; Start 12/28/18 at 04:30 Diagnostic Test (Pha) (Accu-Chek) 1 ea 02 XX Last administered on 01/07/19at 01:42; Admin Dose 1 EA; Start 12/29/18 at 02:00 Miscellaneous Information 1 ea NOTE XX ; Start 12/28/18 at 05:00 Glucose (Glutose) 15 gm Q15M PRN PO DECREASED GLUCOSE; Start 12/28/18 at 05:00 Glucose (Glutose) 22.5 gm Q15M PRN PO DECREASED GLUCOSE; Start 12/28/18 at 05:00 Dextrose (D50w Syringe) 25 ml Q15M PRN IV DECREASED GLUCOSE; Start 12/28/18 at 05:00 Dextrose (D50w Syringe) 50 ml Q15M PRN IV DECREASED GLUCOSE; Start 12/28/18 at 05:00 Glucagon (Glucagen) 1 mg Q15M PRN IM DECREASED GLUCOSE; Start 12/28/18 at 05:00 Glucose (Glutose) 15 gm Q15M PRN BUCCAL DECREASED GLUCOSE; Start 12/28/18 at 05:00 Atorvastatin Calcium (Lipitor) 80 mg HS PO Last administered on 01/06/19at 22:36; Admin Dose 80 MG; Start 12/29/18 at 21:00 Phenol (Cepastat Lozenge) 1 lozenge Q1H PRN MT COUGH Last administered on 01/03/19at 13:05; Admin Dose 1 LOZENGE; Start 12/28/18 at 17:30 Vancomycin HCl (Vanco Iv Per Pharmacy) VANCOMYCIN PER PHARMACY PER PROTOCOL XX ; Start 12/29/18 at 05:30 Escitalopram Oxalate (Lexapro) 10 mg DAILY PO Last administered on 01/06/19at 09:02; Admin Dose 10 MG; Start 12/29/18 at 09:30 Risedronate (Actonel) 35 mg Tu@AC BREAKFAST PO ; Start 12/30/18 at 07:00 Mirtazapine (Remeron) 15 mg HS PO Last administered on 01/06/19 22:32; Admin Dose 15 MG; Start 12/29/18 at 21:00 Pantoprazole (Protonix Tab) 40 mg DAILY@06 PO Last administered on 01/07/19 05:43; Admin Dose 40 MG; Start 12/30/18 at 06:00 Docusate Sodium (Colace) 100 mg BID PO Last administered on 01/06/19 22:32; Admin Dose 100 MG; Start 12/29/18 at 18:30 Nitroglycerin/ Dextrose 250 ml @ 1.5 mls/hr TITRATE IV Last administered on 01/06/19 19:44; Admin Dose 10.5 MLS/HR; Start 12/31/18 at 23:00 Vancomycin HCl 250 ml @ 125 mls/hr Q48H IVPB Last administered on 01/07/19 07:03; Admin Dose 125 MLS/HR; Start 01/03/19 at 06:00 Clopidogrel Bisulfate (plaVIX) 75 mg DAILY PO Last administered on 01/06/19 09:02; Admin Dose 75 MG; Start 01/03/19 at 09:00 Isosorbide Mononitrate (Imdur) 30 mg DAILY PO Last administered on 01/06/19 09:02; Admin Dose 30 MG; Start 01/02/19 at 09:00 Furosemide (Lasix) 40 mg DAILY IV Last administered on 01/06/19 09:02; Admin Dose 40 MG; Start 01/03/19 at 09:00 Ranolazine (Ranexa) 1,000 mg Q12 PO Last administered on 01/06/19 22:32; Admin Dose 1,000 MG; Start 01/03/19 at 13:30 Piperacillin Sod/ Tazobactam Sod 50 ml @ 100 mls/hr Q8 IVPB Last administered on 01/07/19 05:41; Admin Dose 100 MLS/HR; Start 01/03/19 at 22:00 Morphine Sulfate (morphine) 1 mg Q1H PRN IV SEVERE PAIN LEVEL 7-10 Last admi nistered on 01/07/19 02:39; Admin Dose 1 MG; Start 01/04/19 at 16:00 Polyethylene Glycol (Miralax) 17 gm BID PRN PO CONSTIPATION Last administered on 01/06/19at 13:44; Admin Dose 17 GM; Start 01/06/19 at 13:00 Carvedilol (Coreg) 25 mg BID PO Last administered on 01/06/19at 22:32; Admin Dose 25 MG; Start 01/06/19 at 21:00 IV Flush (NS 10 ml) 10 ml PRN PRN IV flush; Start 01/06/19 at 18:30 Bisacodyl (Dulcolax Supp) 10 mg DAILY PRN [place] CONSTIPATION; Start 01/06/19 at 19:00 Sodium Chloride 1,000 ml @ 50 mls/hr Q20H IV Last administered on 01/06/19at 22:33; Admin Dose 50 MLS/HR; Start 01/06/19 at 21:00 Insulin Aspart (Novolog Insulin Pen) NOVOLOG *MILD* ALGORI... Q4 SC ; Start 01/07/19 at 05:00 RODRIGUEZ GARZA January 07, 2019 09:31
[2019-01-07] MEDS: ESCITALOPRAM 10 MG TAB PO SCH (09:33)
[2019-01-07] MEDS: FUROSEMIDE 40 MG INJ IV SCH (09:33)
[2019-01-07] MEDS: ASPIRIN 81 MG TAB PO SCH (09:33)
[2019-01-07] MEDS: CLOPIDOGREL 75 MG TAB PO SCH (09:33)
[2019-01-07] MEDS: RANOLAZINE (SR) 500 MG TAB PO SCH ×2 (09:37→20:28)
[2019-01-07] MEDS: DOCUSATE SODIUM 100 MG CAP PO SCH ×2 (09:37→20:28)
--- NOTE | 2019-01-07 10:20 | PN ---
Date/Time of Note Date/Time of Note DATE: 01/07/19 TIME: Assessment/Plan VTE Prophylaxis Risk score (from [facility])>0 risk: 11 SCD applied (from Ns): Yes Pharmacological prophylaxis: NA/contraindicated Pharm contraindication: other (per cardiology) Lines/Catheters IV Catheter Type (from [facility]): PICC Line Central line still needed: Yes Urinary Cath still in place: Yes Reason Cath still needed: skin wounds contaminated by urine Assessment/Plan Assessment/Plan 83 yo [place]ian-speaking woman with history of dementia, hypertension, dyslipidemia, severe MR and aortic stenosis, arrhythmia who presents with ACS and multi-vessel coronary artery disease. #Acute [place] #CAD - STEMI with LBBB - patient had cardiac cath on 12/28, found with: Severe 2 vessel CAD, LAD and RCA, LAD is culprit with francine 2 flow, and cardiomyopathy with LVEF 35%. Again patient also with severe aortic regurgitation and at least moderate mitral regurgitation. - Continue, Lipitor, beta-geovanny, statin, Plavix and Imdur - Per cardiology team Dr. Alvarenga and CTS Dr. Freire, patient ideally would need 2 vessel CABG (GRAF-LAD and SVG-RCA) with aortic valve repair/replacement and possibly mitral valve repair, was pending transfer to [facility] for high risk PCI to LAD and RCA, with possible staged TAVR for severe AI. - However due to acute decompensation she was taken for cath on 01/04 and got PCI to prox LAD. - Now plan for repeat cath with PCI later this week, likely tomorrow. #Acute CHF exacerbation - likely due to acute ischemic CAD/STEMI - currently on nitro gtt - Appears to be near euvolemia. #Bacteremia: 2 out of 2 bottles positive for coagulase-negative staph -Continue broad-spectrum antibiotics - May be due to pneumonia. Patchy lung infiltrates not completely consistent with pulmonary edema. - Will continue vanco as well as zosyn (even though staph is resistant) because there may be other gram negatives sensitive to it which didn't grow out in blood cultures. #WILLIAM: Patient has adequate urine output. -Monitor, follow-up recommendations from renal consult -For now continue IV Lasix once a day, monitor urine output and BUN/creatinine levels -No CRISTINO or ARB at this time GI: PPI Critical care time spent in patient care today equals 45 minutes. Result Diagram: 01/07/19 0430 01/07/19 0430 Subjective 24 Hr Interval Summary Free Text/Dictation No acute overnight events. Exam/Review of Systems Exam Vitals Vital Signs Date Temp Pulse Resp B/P (MAP) Pulse Ox O2 O2 Flow FiO2 Time Delivery Rate 01/07/19 75 08:00 01/07/19 22 137/44 94 07:45 (75) 01/07/19 Nasal 4.0 07:00 Cannula 01/07/19 98.1 04:00 01/05/19 50 20:25 Intake and Output 01/06/19 01/06/19 01/07/19 1515:00 23:00 07:00 IntakeIntake Total 210 ml 412.0 ml 653.5 ml OutputOutput Total 470 ml 330 ml 440 ml BalanceBalance -260 ml 82.0 ml 213.5 ml Exam Gen: Frail appearing elderly woman lying in bed, no acute distress HEENT: PERRL, no icterus, moist mucous membranes, clear oropharynx Neck: Supple, no JVD. Card: Regular rate and rhythm, no murmurs appreciated Pulm: Distant breath sounds bilaterally Abd: Soft, nontender, nondistended. Ext: No LE edema B/L. Results Results 24hrs Laboratory Tests Test 01/06/19 12:35 01/06/19 17:23 01/06/19 22:46 01/07/19 01:26 Bedside Glucose 142 124 183 186 Test 01/07/19 02:36 01/07/19 04:30 01/07/19 05:38 Bedside Glucose 187 181 White Blood Count 21.2 H Red Blood Count 2.33 L Hemoglobin 6.9 *L Hematocrit 22.9 L Mean Corpuscular 98.3 Volume Mean Corpuscular 29.6 Hemoglobin Mean Corpuscular 30.1 L Hemoglobin Concent Red Cell 17.2 H Distribution Width Platelet Count 322 Mean Platelet Volume 9.8 Immature 1.100 H Granulocytes % Neutrophils % 88.4 H Lymphocytes % 5.7 L Monocytes % 3.1 Eosinophils % 1.4 Basophils % 0.3 Nucleated Red Blood 0.0 Cells % Immature 0.230 H Granulocytes # Neutrophils # 18.8 H Lymphocytes # 1.2 Monocytes # 0.7 Eosinophils # 0.3 Basophils # 0.1 Nucleated Red Blood 0.0 Cells # Prothrombin Time 18.0 H Prothrombin Time 1.4 Ratio INR International 1.48 Normalized Ratio Activated 41.4 H Partial Thromboplast Time Sodium Level 144 Potassium Level 3.4 L Chloride Level 109 Carbon Dioxide Level 28 Anion Gap 7 # Blood Urea Nitrogen 48 H Creatinine 1.76 H Est Glomerular Filtrat Rate mL/min Glucose Level 145 Calcium Level 8.1 L Medications Medication Current Medications IV Flush (NS 3 ml) 3 ml PER PROTOCOL IV ; Start 12/28/18 at 04:30 Ondansetron HCl (Zofran Inj) 4 mg Q6H PRN IV NAUSEA/VOMITING Last administered on 01/04/19at 08:54; Admin Dose 4 MG; Start 12/28/18 at 04:30 Aspirin (Aspirin) 81 mg DAILY PO Last administered on 01/07/19at 09:33; Admin Dose 81 MG; Start 12/28/18 at 09:00 Nitroglycerin (Nitroglycerin (Sl Tab) 0.4 Mg) 1 tab Q5M PRN SL .CHEST PAIN Last administered on 01/06/19at 04:29; Admin Dose 1 TAB; Start 12/28/18 at 04:30 Diagnostic Test (Pha) (Accu-Chek) 1 ea 02 XX Last administered on 01/07/19at 01:42; Admin Dose 1 EA; Start 12/29/18 at 02:00 Miscellaneous Information 1 ea NOTE XX ; Start 12/28/18 at 05:00 Glucose (Glutose) 15 gm Q15M PRN PO DECREASED GLUCOSE; Start 12/28/18 at 05:00 Glucose (Glutose) 22.5 gm Q15M PRN PO DECREASED GLUCOSE; Start 12/28/18 at 05:00 Dextrose (D50w Syringe) 25 ml Q15M PRN IV DECREASED GLUCOSE; Start 12/28/18 at 05:00 Dextrose (D50w Syringe) 50 ml Q15M PRN IV DECREASED GLUCOSE; Start 12/28/18 at 05:00 Glucagon (Glucagen) 1 mg Q15M PRN IM DECREASED GLUCOSE; Start 12/28/18 at 05:00 Glucose (Glutose) 15 gm Q15M PRN BUCCAL DECREASED GLUCOSE; Start 12/28/18 at 05:00 Atorvastatin Calcium (Lipitor) 80 mg HS PO Last administered on 01/06/19at 22:36; Admin Dose 80 MG; Start 12/29/18 at 21:00 Phenol (Cepastat Lozenge) 1 lozenge Q1H PRN MT COUGH Last administered on 01/03/19 13:05; Admin Dose 1 LOZENGE; Start 12/28/18 at 17:30 Vancomycin HCl (Vanco Iv Per Pharmacy) VANCOMYCIN PER PHARMACY PER PROTOCOL XX ; Start 12/29/18 at 05:30 Escitalopram Oxalate (Lexapro) 10 mg DAILY PO Last administered on 01/07/19 09:33; Admin Dose 10 MG; Start 12/29/18 at 09:30 Risedronate (Actonel) 35 mg Tu@AC BREAKFAST PO ; Start 12/30/18 at 07:00 Mirtazapine (Remeron) 15 mg HS PO Last administered on 01/06/19 22:32; Admin Dose 15 MG; Start 12/29/18 at 21:00 Pantoprazole (Protonix Tab) 40 mg DAILY@06 PO Last administered on 01/07/19 05:43; Admin Dose 40 MG; Start 12/30/18 at 06:00 Docusate Sodium (Colace) 100 mg BID PO Last administered on 01/07/19 09:37; Admin Dose 100 MG; Start 12/29/18 at 18:30 Vancomycin HCl 250 ml @ 125 mls/hr Q48H IVPB Last administered on 01/07/19 07:03; Admin Dose 125 MLS/HR; Start 01/03/19 at 06:00 Clopidogrel Bisulfate (plaVIX) 75 mg DAILY PO Last administered on 01/07/19 09:33; Admin Dose 75 MG; Start 01/03/19 at 09:00 Furosemide (Lasix) 40 mg DAILY IV Last administered on 01/07/19 09:33; Admin Dose 40 MG; Start 01/03/19 at 09:00 Ranolazine (Ranexa) 1,000 mg Q12 PO Last administered on 01/07/19 09:37; Admin Dose 1,000 MG; Start 01/03/19 at 13:30 Piperacillin Sod/ Tazobactam Sod 50 ml @ 100 mls/hr Q8 IVPB Last administered on 01/07/19 05:41; Admin Dose 100 MLS/HR; Start 01/03/19 at 22:00 Morphine Sulfate (morphine) 1 mg Q1H PRN IV SEVERE PAIN LEVEL 7-10 Last administered on 01/07/19at 02:39; Admin Dose 1 MG; Start 01/04/19 at 16:00 Polyethylene Glycol (Miralax) 17 gm BID PRN PO CONSTIPATION Last administered on 01/06/19at 13:44; Admin Dose 17 GM; Start 01/06/19 at 13:00 Carvedilol (Coreg) 25 mg BID PO Last administered on 01/07/19at 09:34; Admin Dose 25 MG; Start 01/06/19 at 21:00 IV Flush (NS 10 ml) 10 ml PRN PRN IV flush; Start 01/06/19 at 18:30 Bisacodyl (Dulcolax Supp) 10 mg DAILY PRN [place] CONSTIPATION; Start 01/06/19 at 19:00 Sodium Chloride 1,000 ml @ 50 mls/hr Q20H IV Last administered on 01/06/19at 22:33; Admin Dose 50 MLS/HR; Start 01/06/19 at 21:00 Insulin Aspart (Novolog Insulin Pen) NOVOLOG *MILD* ALGORI... Q4 SC Last administered on 01/07/19at 10:05; Admin Dose 1 UNIT; Start 01/07/19 at 05:00 Isosorbide Mononitrate (Imdur) 60 mg DAILY PO ; Start 01/08/19 at 09:00 Potassium Chloride (Klor-Con 20) 20 meq BID PO ; Start 01/07/19 at 10:00; Stop 01/08/19 at 01:00 ANAM TOMPKINS MD January 07, 2019 10:20
[2019-01-07] MEDS: POTASSIUM CHLORIDE (SR) 20 MEQ TAB PO SCH ×2 (11:36→20:28)
--- NOTE | 2019-01-07 12:25 | CONS ---
Consult Date/Type/Reason Admit Date/Time December 28, 2018 at 03:23 Initial Consult Date 01/03/19 Type of Consult Pulmonary Requesting Provider: KRYSTAL BERNARD Date/Time of Note DATE: 01/07/19 TIME: 12:24 Subjective Still having chest pain at rest on minimal exertion. Continues antiplatelet therapy scheduled for transfusion today and then cardiac catheterization tomorrow. Objective Vital Signs Date Temp Pulse Resp B/P (MAP) Pulse Ox O2 O2 Flow FiO2 Time Delivery Rate 01/07/19 97.6 76 29 121/36 97 12:00 (64) 01/07/19 4.0 08:00 01/07/19 Nasal 08:00 Cannula 01/05/19 50 20:25 Intake and Output 01/06/19 01/06/19 01/07/19 1515:00 23:00 07:00 IntakeIntake Total 210 ml 412.0 ml 653.5 ml OutputOutput Total 470 ml 330 ml 440 ml BalanceBalance -260 ml 82.0 ml 213.5 ml Exam GENERAL: Elderly lady on nasal cannula O2 VITAL SIGNS: per chart NECK: Supple. No JVD or lymphadenopathy. CARDIAC EXAM: S1, S2. No added sounds or murmurs. CHEST: Diminished air entry bilaterally ABDOMEN: Soft, nontender. No guarding or rebound. EXTREMITIES: No cyanosis, clubbing or edema. NEUROLOGIC: Generalized weakness. No focal deficits. Results/Medications Result Diagram: 01/07/19 0430 01/07/19 0430 Results 24 hrs Laboratory Tests Test 01/06/19 12:35 01/06/19 17:23 01/06/19 22:46 01/07/19 01:26 Bedside Glucose 142 124 183 186 Test 01/07/19 02:36 01/07/19 04:30 01/07/19 05:38 01/07/19 10:02 Bedside Glucose 187 181 153 White Blood Count 21.2 H Red Blood Count 2.33 L Hemoglobin 6.9 *L Hematocrit 22.9 L Mean Corpuscular 98.3 Volume Mean Corpuscular 29.6 Hemoglobin Mean Corpuscular 30.1 L Hemoglobin Concent Red Cell 17.2 H Distribution Width Platelet Count 322 Mean Platelet Volume 9.8 Immature 1.100 H Granulocytes % Neutrophils % 88.4 H Lymphocytes % 5.7 L Monocytes % 3.1 Eosinophils % 1.4 Basophils % 0.3 Nucleated Red Blood 0.0 Cells % Immature 0.230 H Granulocytes # Neutrophils # 18.8 H Lymphocytes # 1.2 Monocytes # 0.7 Eosinophils # 0.3 Basophils # 0.1 Nucleated Red Blood 0.0 Cells # Prothrombin Time 18.0 H Prothrombin Time 1.4 Ratio INR International 1.48 Normalized Ratio Activated 41.4 H Partial Thromboplast Time Sodium Level 144 Potassium Level 3.4 L Chloride Level 109 Carbon Dioxide Level 28 Anion Gap 7 # Blood Urea Nitrogen 48 H Creatinine 1.76 H Est Glomerular Filtrat Rate mL/min Glucose Level 145 Calcium Level 8.1 L Medications Current Medications IV Flush (NS 3 ml) 3 ml PER PROTOCOL IV ; Start 12/28/18 at 04:30 Ondansetron HCl (Zofran Inj) 4 mg Q6H PRN IV NAUSEA/VOMITING Last administered on 01/04/19at 08:54; Admin Dose 4 MG; Start 12/28/18 at 04:30 Aspirin (Aspirin) 81 mg DAILY PO Last administered on 01/07/19at 09:33; Admin Dose 81 MG; Start 12/28/18 at 09:00 Nitroglycerin (Nitroglycerin (Sl Tab) 0.4 Mg) 1 tab Q5M PRN SL .CHEST PAIN Last administered on 01/06/19at 04:29; Admin Dose 1 TAB; Start 12/28/18 at 04:30 Diagnostic Test (Pha) (Accu-Chek) 1 ea 02 XX Last administered on 01/07/19at 01:42; Admin Dose 1 EA; Start 12/29/18 at 02:00 Miscellaneous Information 1 ea NOTE XX ; Start 12/28/18 at 05:00 Glucose (Glutose) 15 gm Q15M PRN PO DECREASED GLUCOSE; Start 12/28/18 at 05:00 Glucose (Glutose) 22.5 gm Q15M PRN PO DECREASED GLUCOSE; Start 12/28/18 at 05:00 Dextrose (D50w Syringe) 25 ml Q15M PRN IV DECREASED GLUCOSE; Start 12/28/18 at 05:00 Dextrose (D50w Syringe) 50 ml Q15M PRN IV DECREASED GLUCOSE; Start 12/28/18 at 05:00 Glucagon (Glucagen) 1 mg Q15M PRN IM DECREASED GLUCOSE; Start 12/28/18 at 05:00 Glucose (Glutose) 15 gm Q15M PRN BUCCAL DECREASED GLUCOSE; Start 12/28/18 at 05:00 Atorvastatin Calcium (Lipitor) 80 mg HS PO Last administered on 01/06/19 22:36; Admin Dose 80 MG; Start 12/29/18 at 21:00 Phenol (Cepastat Lozenge) 1 lozenge Q1H PRN MT COUGH Last administered on 01/03/19 13:05; Admin Dose 1 LOZENGE; Start 12/28/18 at 17:30 Vancomycin HCl (Vanco Iv Per Pharmacy) VANCOMYCIN PER PHARMACY PER PROTOCOL XX ; Start 12/29/18 at 05:30 Escitalopram Oxalate (Lexapro) 10 mg DAILY PO Last administered on 01/07/19 09:33; Admin Dose 10 MG; Start 12/29/18 at 09:30 Risedronate (Actonel) 35 mg Tu@AC BREAKFAST PO ; Start 12/30/18 at 07:00 Mirtazapine (Remeron) 15 mg HS PO Last administered on 01/06/19 22:32; Admin Dose 15 MG; Start 12/29/18 at 21:00 Pantoprazole (Protonix Tab) 40 mg DAILY@06 PO Last administered on 01/07/19 05:43; Admin Dose 40 MG; Start 12/30/18 at 06:00 Docusate Sodium (Colace) 100 mg BID PO Last administered on 01/07/19 09:37; Admin Dose 100 MG; Start 12/29/18 at 18:30 Vancomycin HCl 250 ml @ 125 mls/hr Q48H IVPB Last administered on 01/07/19 07:03; Admin Dose 125 MLS/HR; Start 01/03/19 at 06:00 Clopidogrel Bisulfate (plaVIX) 75 mg DAILY PO Last administered on 01/07/19 09:33; Admin Dose 75 MG; Start 01/03/19 at 09:00 Furosemide (Lasix) 40 mg DAILY IV Last administered on 01/07/19 09:33; Admin Dose 40 MG; Start 01/03/19 at 09:00 Ranolazine (Ranexa) 1,000 mg Q12 PO Last administered on 01/07/19 09:37; Admin Dose 1,000 MG; Start 01/03/19 at 13:30 Piperacillin Sod/ Tazobactam Sod 50 ml @ 100 mls/hr Q8 IVPB Last administered on 01/07/19at 05:41; Admin Dose 100 MLS/HR; Start 01/03/19 at 22:00 Morphine Sulfate (morphine) 1 mg Q1H PRN IV SEVERE PAIN LEVEL 7-10 Last administered on 01/07/19 02:39; Admin Dose 1 MG; Start 01/04/19 at 16:00 Polyethylene Glycol (Miralax) 17 gm BID PRN PO CONSTIPATION Last administered on 01/06/19at 13:44; Admin Dose 17 GM; Start 01/06/19 at 13:00 Carvedilol (Coreg) 25 mg BID PO Last administered on 01/07/19at 09:34; Admin Dose 25 MG; Start 01/06/19 at 21:00 IV Flush (NS 10 ml) 10 ml PRN PRN IV flush; Start 01/06/19 at 18:30 Bisacodyl (Dulcolax Supp) 10 mg DAILY PRN [place] CONSTIPATION; Start 01/06/19 at 19:00 Sodium Chloride 1,000 ml @ 50 mls/hr Q20H IV Last administered on 01/06/19at 22:33; Admin Dose 50 MLS/HR; Start 01/06/19 at 21:00 Insulin Aspart (Novolog Insulin Pen) NOVOLOG *MILD* ALGORI... Q4 SC Last administered on 01/07/19at 10:05; Admin Dose 1 UNIT; Start 01/07/19 at 05:00 Isosorbide Mononitrate (Imdur) 60 mg DAILY PO ; Start 01/08/19 at 09:00 Potassium Chloride (Klor-Con 20) 20 meq BID PO Last administered on 01/07/19at 11:36; Admin Dose 20 MEQ; Start 01/07/19 at 10:00; Stop 01/08/19 at 01:00 Assessment/Plan Hospital Course (Demo Recall) iMP: 1. s/p Acute DE--now with unstable angina 2. CHF ongoing pulmonary edema 3. Hypercapnic Resp Insufficiency 4. Severe CAD 5. Bacteremia 6. Acute and CKD 7. Possible aspiration pneumonia. Right upper lobe infiltrate RECS: 1. Continue diuresis, monitor creatinine 2. Follow I/O's and renal function 3. Aspiration precautions 4. BiPAP prn 5. Continue NTG gtt 6. 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 Abx as per ID 8. Transfuse packed red blood cells 9. Continue antiplatelet therapy 35 min cc time TONE REID MD, [facility] January 07, 2019 12:25
[2019-01-07] MEDS ORDERED: DIAZEPAM 5 MG TAB PO ONE (13:00)
[2019-01-07] MEDS ORDERED: DIPHENHYDRAMINE 25 MG CAP PO ONE (13:00)
[2019-01-07] MEDS: NITROGLYCERIN (SL) 0.4 MG TAB SL PRN ×3 (15:59→16:15)
[2019-01-07] MEDS ORDERED: NITROGLYCERIN 50 MG/D5W (PMX) 250 ML IV SCH (17:00)
[2019-01-07] MEDS: SOD CHLORIDE 0.9% 1,000 ML IV SCH (17:00)
[2019-01-07] MEDS: ALBUTEROL/IPRATROPIUM (NEB) 3 ML AMP HHN PRN (20:04)
[2019-01-07] MEDS: ATORVASTATIN 80 MG TAB PO SCH (20:28)
[2019-01-07] MEDS: MIRTAZAPINE 15 MG TAB PO SCH (20:29)
[2019-01-07] MEDS ORDERED: DEXAMETHASONE 10 MG/ML 1 ML INJ IV ONE (22:00)
[2019-01-07] MEDS ORDERED: FAMOTIDINE 20 MG INJ IV ONE (22:00)
[2019-01-08] VITALS (37 sets, daily range): BP systolic 121–165; BP diastolic 38–96; PULSE 73–120; RESP 16–40
[2019-01-08] MEDS: INSULIN ASPART [NOVOLOG] 3 ML PEN SC SCH ×6 (01:38→20:08)
[2019-01-08] MEDS: ACCU-CHEK XX SCH (02:00)
[2019-01-08] MEDS: ALBUTEROL/IPRATROPIUM (NEB) 3 ML AMP HHN PRN ×3 (02:09→12:01)
[2019-01-08] MEDS: morphine 2 MG INJ IV PRN ×4 (02:20→23:58)
[2019-01-08] MEDS ORDERED: FUROSEMIDE 40 MG INJ IV ONE (02:30)
[2019-01-08] MEDS ORDERED: DEXAMETHASONE 4 MG/ML 1 ML INJ IV ONE (05:00)
[2019-01-08] MEDS: PIPER-TAZO 2.25 GM (PMX) 50 ML IVPB SCH ×3 (05:07→21:17)
[2019-01-08] MEDS: PANTOPRAZOLE (EC) 40 MG TAB PO SCH (05:07)
[2019-01-08] MEDS: ESCITALOPRAM 10 MG TAB PO SCH (09:04)
[2019-01-08] MEDS: FUROSEMIDE 40 MG INJ IV SCH (09:04)
[2019-01-08] MEDS: DOCUSATE SODIUM 100 MG CAP PO SCH ×2 (09:05→20:24)
[2019-01-08] MEDS: CLOPIDOGREL 75 MG TAB PO SCH (09:05)
[2019-01-08] MEDS: ASPIRIN 81 MG TAB PO SCH (09:05)
[2019-01-08] MEDS: ISOSORBIDE MONONITRATE(SR)60 MG TAB PO SCH (09:05)
[2019-01-08] MEDS: RANOLAZINE (SR) 500 MG TAB PO SCH ×2 (09:06→20:24)
--- NOTE | 2019-01-08 09:56 | CONS ---
Consult Date/Type/Reason Admit Date/Time December 28, 2018 at 03:23 Initial Consult Date 01/03/19 Type of Consult Pulmonary Requesting Provider: KRYSTAL BERNARD Date/Time of Note DATE: 01/08/19 TIME: 09:55 Subjective Status post transfusion. Still with significant respiratory distress and chest pain. Episodes of tach noted. Nitro drip increased. Objective Vital Signs Date Temp Pulse Resp B/P (MAP) Pulse Ox O2 O2 Flow FiO2 Time Delivery Rate 01/08/19 78 22 140/41 94 06:00 (74) 01/08/19 3.0 05:53 01/08/19 Nasal 05:00 Cannula 01/08/19 98.1 04:00 01/08/19 35 03:52 Intake and Output 01/07/19 01/07/19 01/08/19 1515:00 23:00 07:00 IntakeIntake Total 907 ml 469.3 ml 295 ml OutputOutput Total 385 ml 195 ml 175 ml BalanceBalance 522 ml 274.3 ml 120 ml Exam GENERAL: Elderly lady on nasal cannula O2 VITAL SIGNS: per chart NECK: Supple. No JVD or lymphadenopathy. CARDIAC EXAM: S1, S2. No added sounds or murmurs. CHEST: Diminished air entry bilaterally ABDOMEN: Soft, nontender. No guarding or rebound. EXTREMITIES: No cyanosis, clubbing or edema. NEUROLOGIC: Generalized weakness. No focal deficits. Vent Setting Fraction of Inspired Oxygen pe: 30 Results/Medications Result Diagram: 01/08/19 0255 01/08/19 0255 Results 24 hrs Laboratory Tests Test 01/07/19 10:02 01/07/19 12:52 01/07/19 17:28 01/07/19 20:37 Bedside Glucose 153 184 145 139 Test 01/08/19 01:35 01/08/19 02:04 01/08/19 02:55 01/08/19 04:19 Bedside Glucose 151 201 Blood Gas Blood arterial Specimen Source Arterial Blood 01/08/2019 2:15: Date Drawn 27 AM Arterial Blood 7.342 L pH (Temp corrected) Arterial Blood 44.6 pCO2 (Temp correct) Arterial Blood 86.7 pO2 (Temp corrected) Arterial Blood 23.6 HCO3 Arterial Blood -2.1 Base Excess Arterial Blood 95.1 Oxygen Saturatio n Francis Test ACCEPTAB Arterial Blood Right Radial Gas Puncture Site Arterial 0.3 Blood Carboxyhem oglobin Arterial Blood 0.3 Methemoglobin Blood Gas A-a O2 96.5 H Differential Oxyhemoglobin 94.5 Percent Blood Gas 37.0 Temperature Blood Gas Actual 28 Respiration Rate Blood Gas NASAL CANNULA Modality FiO2 33.0 Blood Gas MG Notified Whom Blood Gas 01/08/2019 2:24: Notified Time 58 AM White Blood 24.4 H Count Red Blood Count 2.98 #L Hemoglobin 9.0 #L Hematocrit 29.0 #L Mean Corpuscular 97.3 Volume Mean Corpuscular 30.2 Hemoglobin Mean Corpuscular 31.0 L Hemoglobin Devika nt Red Cell 17.2 H Distribution Width Platelet Count 350 Mean Platelet 9.8 Volume Immature 1.400 H Granulocytes % Neutrophils % 92.7 H Lymphocytes % 4.2 L Monocytes % 0.9 Eosinophils % 0.5 Basophils % 0.3 Nucleated Red 0.1 H Blood Cells % Immature 0.330 H Granulocytes # Neutrophils # 22.6 H Lymphocytes # 1.0 Monocytes # 0.2 L Eosinophils # 0.1 Basophils # 0.1 Nucleated Red 0.0 Blood Cells # Sodium Level 146 H Potassium Level 4.0 Chloride Level 110 Carbon Dioxide 24 Level Anion Gap 12 Blood Urea 44 H Nitrogen Creatinine 1.97 H Est Glomerular Filtrat Rate mL/min Glucose Level 215 Calcium Level 8.2 L Phosphorus Level 5.0 H Magnesium Level 2.2 Total Bilirubin 0.6 Direct Bilirubin 0.00 Indirect 0.6 Bilirubin Aspartate Amino 24 Transf (AST/SGOT ) Alanine 25 Aminotransferase (ALT/SGPT) Alkaline 69 Phosphatase Troponin I 0.580 *H Total Protein 5.9 L Albumin 3.1 L Globulin 2.80 Albumin/Globulin 1.10 Ratio Test 01/08/19 05:13 Lab Scanned BLOOD TRANSFUSI Report ON Medications Current Medications IV Flush (NS 3 ml) 3 ml PER PROTOCOL IV ; Start 12/28/18 at 04:30 Ondansetron HCl (Zofran Inj) 4 mg Q6H PRN IV NAUSEA/VOMITING Last administered on 01/04/19at 08:54; Admin Dose 4 MG; Start 12/28/18 at 04:30 Aspirin (Aspirin) 81 mg DAILY PO Last administered on 01/08/19at 09:05; Admin Dose 81 MG; Start 12/28/18 at 09:00 Nitroglycerin (Nitroglycerin (Sl Tab) 0.4 Mg) 1 tab Q5M PRN SL .CHEST PAIN Last administered on 01/07/19at 16:15; Admin Dose 1 TAB; Start 12/28/18 at 04:30 Diagnostic Test (Pha) (Accu-Chek) 1 ea 02 XX Last administered on 01/07/19at 0 1:42; Admin Dose 1 EA; Start 12/29/18 at 02:00 Miscellaneous Information 1 ea NOTE XX ; Start 12/28/18 at 05:00 Glucose (Glutose) 15 gm Q15M PRN PO DECREASED GLUCOSE; Start 12/28/18 at 05:00 Glucose (Glutose) 22.5 gm Q15M PRN PO DECREASED GLUCOSE; Start 12/28/18 at 05:00 Dextrose (D50w Syringe) 25 ml Q15M PRN IV DECREASED GLUCOSE; Start 12/28/18 at 05:00 Dextrose (D50w Syringe) 50 ml Q15M PRN IV DECREASED GLUCOSE; Start 12/28/18 at 05:00 Glucagon (Glucagen) 1 mg Q15M PRN IM DECREASED GLUCOSE; Start 12/28/18 at 05:00 Glucose (Glutose) 15 gm Q15M PRN BUCCAL DECREASED GLUCOSE; Start 12/28/18 at 05: 00 Atorvastatin Calcium (Lipitor) 80 mg HS PO Last administered on 01/07/19at 20:28; Admin Dose 80 MG; Start 12/29/18 at 21:00 Phenol (Cepastat Lozenge) 1 lozenge Q1H PRN MT COUGH Last administered on 01/03/19at 13:05; Admin Dose 1 LOZENGE; Start 12/28/18 at 17:30 Vancomycin HCl (Vanco Iv Per Pharmacy) VANCOMYCIN PER PHARMACY PER PROTOCOL XX ; Start 12/29/18 at 05:30 Escitalopram Oxalate (Lexapro) 10 mg DAILY PO Last administered on 01/08/19at 09:04; Admin Dose 10 MG; Start 12/29/18 at 09:30 Risedronate (Actonel) 35 mg Tu@AC BREAKFAST PO ; Start 12/30/18 at 07:00 Mirtazapine (Remeron) 15 mg HS PO Last administered on 01/07/19at 20:29; Admin Dose 15 MG; Start 12/29/18 at 21:00 Pantoprazole (Protonix Tab) 40 mg DAILY@06 PO Last administered on 01/07/19 05:43; Admin Dose 40 MG; Start 12/30/18 at 06:00 Docusate Sodium (Colace) 100 mg BID PO Last administered on 01/08/19 09:05; Admin Dose 100 MG; Start 12/29/18 at 18:30 Vancomycin HCl 250 ml @ 125 mls/hr Q48H IVPB Last administered on 01/07/19 07:03; Admin Dose 125 MLS/HR; Start 01/03/19 at 06:00 Clopidogrel Bisulfate (plaVIX) 75 mg DAILY PO Last administered on 01/08/19 09:05; Admin Dose 75 MG; Start 01/03/19 at 09:00 Furosemide (Lasix) 40 mg DAILY IV Last administered on 01/08/19 09:04; Admin Dose 40 MG; Start 01/03/19 at 09:00 Ranolazine (Ranexa) 1,000 mg Q12 PO Last administered on 01/07/19 20:28; Admin Dose 1,000 MG; Start 01/03/19 at 13:30 Piperacillin Sod/ Tazobactam Sod 50 ml @ 100 mls/hr Q8 IVPB Last administered on 01/08/19 05:07; Admin Dose 100 MLS/HR; Start 01/03/19 at 22:00 Morphine Sulfate (morphine) 1 mg Q1H PRN IV SEVERE PAIN LEVEL 7-10 Last administered on 01/08/19 09:03; Admin Dose 1 MG; Start 01/04/19 at 16:00 Polyethylene Glycol (Miralax) 17 gm BID PRN PO CONSTIPATION Last administered on 01/06/19at 13:44; Admin Dose 17 GM; Start 01/06/19 at 13:00 Carvedilol (Coreg) 25 mg BID PO Last administered on 01/08/19 09:05; Admin Dose 25 MG; Start 01/06/19 at 21:00 IV Flush (NS 10 ml) 10 ml PRN PRN IV flush; Start 01/06/19 at 18:30 Bisacodyl (Dulcolax Supp) 10 mg DAILY PRN [place] CONSTIPATION; Start 01/06/19 at 19:00 Insulin Aspart (Novolog Insulin Pen) NOVOLOG *MILD* ALGORI... Q4 SC Last admin istered on 01/08/19at 04:30; Admin Dose 2 UNIT; Start 01/07/19 at 05:00 Isosorbide Mononitrate (Imdur) 60 mg DAILY PO Last administered on 01/08/19at 09:05; Admin Dose 60 MG; Start 01/08/19 at 09:00 Nitroglycerin/ Dextrose 250 ml @ 0 mls/hr TITRATE IV Last administered on 01/07/19at 17:08; Admin Dose 5 MLS/HR; Start 01/07/19 at 17:00 Albuterol/ Ipratropium (Duoneb) 3 ml Q4H RESP THERAPY PRN HHN SHORTNESS OF BREATH Last administered on 01/08/19at 09:53; Admin Dose 3 ML; Start 01/07/19 at 20:00 Assessment/Plan Hospital Course (Demo Recall) iMP: 1. s/p Acute AR--now with unstable angina 2. CHF ongoing pulmonary edema 3. Hypercapnic Resp Insufficiency 4. Severe CAD 5. Bacteremia 6. Acute and CKD 7. Possible aspiration pneumonia. Right upper lobe infiltrate 8. Encephalopathy toxic metabolic, RECS: 1. Continue diuresis, monitor creatinine 2. Follow I/O's and renal function 3. Aspiration precautions 4. BiPAP prn, may require intubation for cardiac procedures. 5. Continue NTG gtt 6. 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 Abx as per ID 35 min cc time TONE REID MD, [facility] January 08, 2019 09:56
--- NOTE | 2019-01-08 10:55 | PN ---
Date/Time of Note Date/Time of Note DATE: 01/08/19 TIME: 10:47 Assessment/Plan VTE Prophylaxis Risk score (from Nsg)>0 risk: 6 SCD applied (from Nsg): Yes Pharmacological prophylaxis: other (per cardiology) Lines/Catheters IV Catheter Type (from Nrsg): PICC Line Central line still needed: Yes Urinary Cath still in place: Yes Reason Cath still needed: other (indicate) (diuresis) Assessment/Plan Assessment/Plan 83 yo Ukrainian-speaking woman with history of dementia, hypertension, dyslipidemia, severe MR and aortic stenosis, arrhythmia who presents with ACS and multi-vessel coronary artery disease. #Acute SC #CAD - STEMI with LBBB - patient had cardiac cath on 12/28, found with: Severe 2 vessel CAD, LAD and RCA, LAD is culprit with francine 2 flow, and cardiomyopathy with LVEF 35%. Again patient also with severe aortic regurgitation and at least moderate mitral regurgitation. - Continue, Lipitor, beta-geovanny, statin, Plavix and Imdur - Per cardiology team Dr. Alvarenga and CTS Dr. Freire, patient ideally would need 2 vessel CABG (GRAF-LAD and SVG-RCA) with aortic valve repair/replacement and possibly mitral valve repair, was pending transfer to [facility] for high risk PCI to LAD and RCA, with possible staged TAVR for severe AI. - However due to acute decompensation she was taken for cath on 01/04 and got PCI to prox LAD. - Now plan for repeat cath with PCI later this week, tentatively today; but in her current condition may need intubation prior to cath. #Acute CHF exacerbation - likely due to acute ischemic CAD/STEMI - currently on nitro gtt - Today 01/08 patient appears to be more fluid overloaded with worsening pulmonary edema. This may be TACO from blood transfusion yesterday. #Bacteremia: 2 out of 2 bottles positive for coagulase-negative staph -Continue broad-spectrum antibiotics - May be due to pneumonia. Patchy lung infiltrates not completely consistent with pulmonary edema. - Will continue vanco as well as zosyn (even though staph is resistant) because there may be other gram negatives sensitive to it which didn't grow out in blood cultures. - Spoke to Dr. Ann yesterday and agreed to stop antibiotics as she has finished a 10 day course. However given her new clinical deterioration and worsening lung infiltrates, will continue for one more day and pursue chest CT. Also repeat blood cultures. #Rash - Erythematous, macular rash on lower abdomen and part of chest noted 01/07 - May be related to transfusion, or drug reaction. - Got decadon, benadryl, , pepcid last night without significant improvement. - WIll watch closely for resolution. #WILLIAM: Patient has adequate urine output. -Monitor, follow-up recommendations from renal consult -For now continue IV Lasix once a day, monitor urine output and BUN/creatinine levels -No CRISTINO or ARB at this time GI: PPI Critical care time spent in patient care today equals 45 minutes. Result Diagram: 01/08/19 0255 01/08/19 025 Subjective 24 Hr Interval Summary Free Text/Dictation Yesterday late afternoon patient noted to have a blanching, macular rash near lower abdomen. This was after blood transfusion. That evening she got IV decadron 10, benadryl 25, and pepcid. This morning condition is significantly worse. Patient has developed worsening hypoxia and now required noninvasive BiPAP. CXR shows worsening pulmonary edema. Nitro gtt was stopped yesterday but resumed yesterday evening. Exam/Review of Systems Exam Vitals Vital Signs Date Temp Pulse Resp B/P (MAP) Pulse Ox O2 O2 Flow FiO2 Time Delivery Rate 01/08/19 114 31 93 Nasal 6.0 09:54 Cannula 01/08/19 140/41 06:00 (74) 01/08/19 98.1 04:00 01/08/19 35 03:52 Intake and Output 01/07/19 01/07/19 01/08/19 1414:59 22:59 06:59 IntakeIntake Total 897 ml 499.3 ml 365 ml OutputOutput Total 375 ml 210 ml 200 ml BalanceBalance 522 ml 289.3 ml 165 ml Exam Gen: Frail appearing elderly woman lying in bed, struggling and combative on BiPAP facemask. HEENT: moist mucous membranes, clear oropharynx Neck: Supple Card: Regular rate and rhythm, 2/6 JAZMINE. Pulm: Coarse breath sounds bilaterally, diminished basilar breath sounds. Abd: Guarding, nondistended. Ext: No LE edema B/L. Skin: Erythematous macular rash along abdomen migrating up towards chest. Results Results 24hrs Laboratory Tests Test 01/07/19 12:52 01/07/19 17:28 01/07/19 20:37 01/08/19 01:35 Bedside Glucose 184 145 139 151 Test 01/08/19 02:04 01/08/19 02:55 01/08/19 04:19 01/08/19 05:13 Blood Gas Blood arterial Specimen Source Arterial Blood 01/08/2019 2:15: Date Drawn 27 AM Arterial Blood 7.342 L pH (Temp corrected) Arterial Blood 44.6 pCO2 (Temp correct) Arterial Blood 86.7 pO2 (Temp corrected) Arterial Blood 23.6 HCO3 Arterial Blood -2.1 Base Excess Arterial Blood 95.1 Oxygen Saturatio n Francis Test ACCEPTAB Arterial Blood Right Radial Gas Puncture Site Arterial 0.3 Blood Carboxyhem oglobin Arterial Blood 0.3 Methemoglobin Blood Gas A-a O2 96.5 H Differential Oxyhemoglobin 94.5 Percent Blood Gas 37.0 Temperature Blood Gas Actual 28 Respiration Rate Blood Gas NASAL CANNULA Modality FiO2 33.0 Blood Gas MG Notified Whom Blood Gas 01/08/2019 2:24: Notified Time 58 AM White Blood 24.4 H Count Red Blood Count 2.98 #L Hemoglobin 9.0 #L Hematocrit 29.0 #L Mean Corpuscular 97.3 Volume Mean Corpuscular 30.2 Hemoglobin Mean Corpuscular 31.0 L Hemoglobin Devika nt Red Cell 17.2 H Distribution Width Platelet Count 350 Mean Platelet 9.8 Volume Immature 1.400 H Granulocytes % Neutrophils % 92.7 H Lymphocytes % 4.2 L Monocytes % 0.9 Eosinophils % 0.5 Basophils % 0.3 Nucleated Red 0.1 H Blood Cells % Immature 0.330 H Granulocytes # Neutrophils # 22.6 H Lymphocytes # 1.0 Monocytes # 0.2 L Eosinophils # 0.1 Basophils # 0.1 Nucleated Red 0.0 Blood Cells # Sodium Level 146 H Potassium Level 4.0 Chloride Level 110 Carbon Dioxide 24 Level Anion Gap 12 Blood Urea 44 H Nitrogen Creatinine 1.97 H Est Glomerular Filtrat Rate mL/min Glucose Level 215 Calcium Level 8.2 L Phosphorus Level 5.0 H Magnesium Level 2.2 Total Bilirubin 0.6 Direct Bilirubin 0.00 Indirect 0.6 Bilirubin Aspartate Amino 24 Transf (AST/SGOT ) Alanine 25 Aminotransferase (ALT/SGPT) Alkaline 69 Phosphatase Troponin I 0.580 *H Total Protein 5.9 L Albumin 3.1 L Globulin 2.80 Albumin/Globulin 1.10 Ratio Bedside Glucose 201 Lab Scanned BLOOD TRANSFUSI Report ON Test 01/08/19 09:59 Bedside Glucose 226 H Medications Medication Current Medications IV Flush (NS 3 ml) 3 ml PER PROTOCOL IV ; Start 12/28/18 at 04:30 Ondansetron HCl (Zofran Inj) 4 mg Q6H PRN IV NAUSEA/VOMITING Last administered on 01/04/19at 08:54; Admin Dose 4 MG; Start 12/28/18 at 04:30 Aspirin (Aspirin) 81 mg DAILY PO Last administered on 01/08/19at 09:05; Admin Dose 81 MG; Start 12/28/18 at 09:00 Nitroglycerin (Nitroglycerin (Sl Tab) 0.4 Mg) 1 tab Q5M PRN SL .CHEST PAIN Last administered on 01/07/19at 16:15; Admin Dose 1 TAB; Start 12/28/18 at 04:30 Diagnostic Test (Pha) (Accu-Chek) 1 ea 02 XX Last administered on 01/07/19at 01:42; Admin Dose 1 EA; Start 12/29/18 at 02:00 Miscellaneous Information 1 ea NOTE XX ; Start 12/28/18 at 05:00 Glucose (Glutose) 15 gm Q15M PRN PO DECREASED GLUCOSE; Start 12/28/18 at 05:00 Glucose (Glutose) 22.5 gm Q15M PRN PO DECREASED GLUCOSE; Start 12/28/18 at 05:00 Dextrose (D50w Syringe) 25 ml Q15M PRN IV DECREASED GLUCOSE; Start 12/28/18 at 05:00 Dextrose (D50w Syringe) 50 ml Q15M PRN IV DECREASED GLUCOSE; Start 12/28/18 at 05:00 Glucagon (Glucagen) 1 mg Q15M PRN IM DECREASED GLUCOSE; Start 12/28/18 at 05:00 Glucose (Glutose) 15 gm Q15M PRN BUCCAL DECREASED GLUCOSE; Start 12/28/18 at 05:00 Atorvastatin Calcium (Lipitor) 80 mg HS PO Last administered on 01/07/19at 20:28; Admin Dose 80 MG; Start 12/29/18 at 21:00 Phenol (Cepastat Lozenge) 1 lozenge Q1H PRN MT COUGH Last administered on 01/03/19at 13:05; Admin Dose 1 LOZENGE; Start 12/28/18 at 17:30 Vancomycin HCl (Vanco Iv Per Pharmacy) VANCOMYCIN PER PHARMACY PER PROTOCOL XX ; Start 12/29/18 at 05:30 Escitalopram Oxalate (Lexapro) 10 mg DAILY PO Last administered on 01/08/19 09:04; Admin Dose 10 MG; Start 12/29/18 at 09:30 Risedronate (Actonel) 35 mg Tu@AC BREAKFAST PO ; Start 12/30/18 at 07:00 Mirtazapine (Remeron) 15 mg HS PO Last administered on 01/07/19 20:29; Admin Dose 15 MG; Start 12/29/18 at 21:00 Pantoprazole (Protonix Tab) 40 mg DAILY@06 PO Last administered on 01/07/19 05:43; Admin Dose 40 MG; Start 12/30/18 at 06:00 Docusate Sodium (Colace) 100 mg BID PO Last administered on 01/08/19 09:05; Admin Dose 100 MG; Start 12/29/18 at 18:30 Vancomycin HCl 250 ml @ 125 mls/hr Q48H IVPB Last administered on 01/07/19 07:03; Admin Dose 125 MLS/HR; Start 01/03/19 at 06:00 Clopidogrel Bisulfate (plaVIX) 75 mg DAILY PO Last administered on 01/08/19 09:05; Admin Dose 75 MG; Start 01/03/19 at 09:00 Furosemide (Lasix) 40 mg DAILY IV Last administered on 01/08/19 09:04; Admin Dose 40 MG; Start 01/03/19 at 09:00 Ranolazine (Ranexa) 1,000 mg Q12 PO Last administered on 01/08/19 09:06; Admin Dose 1,000 MG; Start 01/03/19 at 13:30 Piperacillin Sod/ Tazobactam Sod 50 ml @ 100 mls/hr Q8 IVPB Last administered on 01/08/19 05:07; Admin Dose 100 MLS/HR; Start 01/03/19 at 22:00 Morphine Sulfate (morphine) 1 mg Q1H PRN IV SEVERE PAIN LEVEL 7-10 Last administered on 01/08/19 09:03; Admin Dose 1 MG; Start 01/04/19 at 16:00 Polyethylene Glycol (Miralax) 17 gm BID PRN PO CONSTIPATION Last administered on 01/06/19at 13:44; Admin Dose 17 GM; Start 01/06/19 at 13:00 Carvedilol (Coreg) 25 mg BID PO Last administered on 01/08/19at 09:05; Admin Dose 25 MG; Start 01/06/19 at 21:00 IV Flush (NS 10 ml) 10 ml PRN PRN IV flush; Start 01/06/19 at 18:30 Bisacodyl (Dulcolax Supp) 10 mg DAILY PRN [place] CONSTIPATION; Start 01/06/19 at 19:00 Insulin Aspart (Novolog Insulin Pen) NOVOLOG *MILD* ALGORI... Q4 SC Last a dministered on 01/08/19at 10:05; Admin Dose 3 UNIT; Start 01/07/19 at 05:00 Isosorbide Mononitrate (Imdur) 60 mg DAILY PO Last administered on 01/08/19at 09:05; Admin Dose 60 MG; Start 01/08/19 at 09:00 Nitroglycerin/ Dextrose 250 ml @ 0 mls/hr TITRATE IV Last administered on 01/07/19at 17:08; Admin Dose 5 MLS/HR; Start 01/07/19 at 17:00 Albuterol/ Ipratropium (Duoneb) 3 ml Q4H RESP THERAPY PRN HHN SHORTNESS OF BREATH Last administered on 01/08/19at 09:53; Admin Dose 3 ML; Start 01/07/19 at 20:00 ANAM TOMPKINS MD January 08, 2019 10:55
[2019-01-08] MEDS ORDERED: FUROSEMIDE 40 MG INJ IV STA (11:24)
[2019-01-08] MEDS: NITROGLYCERIN 50 MG/D5W (PMX) 250 ML IV SCH ×2 (15:04→23:59)
--- NOTE | 2019-01-08 15:12 | CONS ---
Assessment/Plan Assessment/Plan Assessment/Plan (Daily) 1. Acute kidney injury on CKD III 2/2 Hemodynamics from CHF + NSTEMI 2. Hypokalemia 3. Hypernatremia 4. acute NSTEMI s/p LHC showed multivessel obstructive CAD - s/p Successful PTCA and stenting of proximal left anterior descending artery using a 3 x 20 mm Synergy drug-eluting stent on 01/04/19- s/p LHC with proximal RCA stenting on 01/08/19 5. CAD mulitivessels obstructive 6. Anemia of Chronic disease s/p 2 U PRBC on 01/07/19 Plan: BUN/Cr improved slighlty to 44/1.97, Na 146, d/c IVF NS s/p Successful PTCA and stenting of proximal left anterior descending artery using a 3 x 20 mm Synergy drug-eluting stent on 01/04/19- s/p LHC with proximal RCA stenting on 01/08/19 IV abx zosyn, renally dosed for bacteremia, renally dose all abx and monitor electrolytes IV lasix 40mg IV daily, s/p LOUIE on 12/30/18 showed severe AI and no vegetations, will continue to follow up Consultation Date/Type/Reason Admit Date/Time December 28, 2018 at 03:23 Initial Consult Date 12/28/18 Type of Consult NEPHROLOGY Requesting Provider: KRYSTAL BERNARD Date/Time of Note DATE: 01/08/19 TIME: 15:12 24 HR Interval Summary Free Text/Dictation s/p LHC with proximal RCA stenting on 01/08/19, on chest pain, seen in ICU, BUN/Cr stable Exam/Review of Systems Exam Vitals Vital Signs Date Temp Pulse Resp B/P (MAP) Pulse Ox O2 O2 Flow FiO2 Time Delivery Rate 01/08/19 96 29 96 Nasal 6.0 12:03 Cannula 01/08/19 35 10:15 01/08/19 140/41 06:00 (74) 01/08/19 98.1 04:00 Intake and Output 01/07/19 01/07/19 01/08/19 1515:00 23:00 07:00 IntakeIntake Total 907 ml 469.3 ml 311.5 ml OutputOutput Total 385 ml 195 ml 175 ml BalanceBalance 522 ml 274.3 ml 136.5 ml Exam Gen: Frail , no acute distress Eyes: PERRL, no icterus HEENT: Moist mucous membranes, clear oropharynx Neck: + JVD ,, no lymphadenopathy Card: Regular rate and rhythm, no murmurs appreciated Pulm: Rales throughout. Abd: Soft, nontender, nondistended. Ext: No cyanosis/clubbing/edema. Results Result Diagram: 01/08/19 0255 01/08/19 0255 Results 24hrs Laboratory Tests Test 01/07/19 17:28 01/07/19 20:37 01/08/19 01:35 01/08/19 02:04 Bedside Glucose 145 139 151 Blood Gas Blood arterial Specimen Source Arterial Blood 01/08/2019 2:15: Date Drawn 27 AM Arterial Blood 7.342 L pH (Temp corrected) Arterial Blood 44.6 pCO2 (Temp correct) Arterial Blood 86.7 pO2 (Temp corrected) Arterial Blood 23.6 HCO3 Arterial Blood -2.1 Base Excess Arterial Blood 95.1 Oxygen Saturatio n Francis Test ACCEPTAB Arterial Blood Right Radial Gas Puncture Site Arterial 0.3 Blood Carboxyhem oglobin Arterial Blood 0.3 Methemoglobin Blood Gas A-a O2 96.5 H Differential Oxyhemoglobin 94.5 Percent Blood Gas 37.0 Temperature Blood Gas Actual 28 Respiration Rate Blood Gas NASAL CANNULA Modality FiO2 33.0 Blood Gas MG Notified Whom Blood Gas 01/08/2019 2:24: Notified Time 58 AM Test 01/08/19 02:55 01/08/19 04:19 01/08/19 05:13 01/08/19 09:59 White Blood 24.4 H Count Red Blood Count 2.98 #L Hemoglobin 9.0 #L Hematocrit 29.0 #L Mean Corpuscular 97.3 Volume Mean Corpuscular 30.2 Hemoglobin Mean Corpuscular 31.0 L Hemoglobin Devika nt Red Cell 17.2 H Distribution Width Platelet Count 350 Mean Platelet 9.8 Volume Immature 1.400 H Granulocytes % Neutrophils % 92.7 H Lymphocytes % 4.2 L Monocytes % 0.9 Eosinophils % 0.5 Basophils % 0.3 Nucleated Red 0.1 H Blood Cells % Immature 0.330 H Granulocytes # Neutrophils # 22.6 H Lymphocytes # 1.0 Monocytes # 0.2 L Eosinophils # 0.1 Basophils # 0.1 Nucleated Red 0.0 Blood Cells # Sodium Level 146 H Potassium Level 4.0 Chloride Level 110 Carbon Dioxide 24 Level Anion Gap 12 Blood Urea 44 H Nitrogen Creatinine 1.97 H Est Glomerular Filtrat Rate mL/min Glucose Level 215 Calcium Level 8.2 L Phosphorus Level 5.0 H Magnesium Level 2.2 Total Bilirubin 0.6 Direct Bilirubin 0.00 Indirect 0.6 Bilirubin Aspartate Amino 24 Transf (AST/SGOT ) Alanine 25 Aminotransferase (ALT/SGPT) Alkaline 69 Phosphatase Troponin I 0.580 *H Total Protein 5.9 L Albumin 3.1 L Globulin 2.80 Albumin/Globulin 1.10 Ratio Bedside Glucose 201 226 H Lab Scanned BLOOD TRANSFUSI Report ON Test 01/08/19 13:09 Bedside Glucose 139 Medications Medication Current Medications IV Flush (NS 3 ml) 3 ml PER PROTOCOL IV ; Start 12/28/18 at 04:30 Ondansetron HCl (Zofran Inj) 4 mg Q6H PRN IV NAUSEA/VOMITING Last administered on 01/04/19at 08:54; Admin Dose 4 MG; Start 12/28/18 at 04:30 Aspirin (Aspirin) 81 mg DAILY PO Last administered on 01/08/19at 09:05; Admin Dose 81 MG; Start 12/28/18 at 09:00 Nitroglycerin (Nitroglycerin (Sl Tab) 0.4 Mg) 1 tab Q5M PRN SL .CHEST PAIN Last administered on 01/07/19at 16:15; Admin Dose 1 TAB; Start 12/28/18 at 04:30 Diagnostic Test (Pha) (Accu-Chek) 1 ea 02 XX Last administered on 01/07/19at 01:42; Admin Dose 1 EA; Start 12/29/18 at 02:00 Miscellaneous Information 1 ea NOTE XX ; Start 12/28/18 at 05:00 Glucose (Glutose) 15 gm Q15M PRN PO DECREASED GLUCOSE; Start 12/28/18 at 05:00 Glucose (Glutose) 22.5 gm Q15M PRN PO DECREASED GLUCOSE; Start 12/28/18 at 05:00 Dextrose (D50w Syringe) 25 ml Q15M PRN IV DECREASED GLUCOSE; Start 12/28/18 at 05:00 Dextrose (D50w Syringe) 50 ml Q15M PRN IV DECREASED GLUCOSE; Start 12/28/18 at 05:00 Glucagon (Glucagen) 1 mg Q15M PRN IM DECREASED GLUCOSE; Start 12/28/18 at 05:00 Glucose (Glutose) 15 gm Q15M PRN BUCCAL DECREASED GLUCOSE; Start 12/28/18 at 05:00 Atorvastatin Calcium (Lipitor) 80 mg HS PO Last administered on 01/07/19 20: 28; Admin Dose 80 MG; Start 12/29/18 at 21:00 Phenol (Cepastat Lozenge) 1 lozenge Q1H PRN MT COUGH Last administered on 01/03/19 13:05; Admin Dose 1 LOZENGE; Start 12/28/18 at 17:30 Vancomycin HCl (Vanco Iv Per Pharmacy) VANCOMYCIN PER PHARMACY PER PROTOCOL XX ; Start 12/29/18 at 05:30 Escitalopram Oxalate (Lexapro) 10 mg DAILY PO Last administered on 01/08/19 09:04; Admin Dose 10 MG; Start 12/29/18 at 09:30 Risedronate (Actonel) 35 mg Tu@AC BREAKFAST PO ; Start 12/30/18 at 07:00 Mirtazapine (Remeron) 15 mg HS PO Last administered on 01/07/19 20:29; Admin Dose 15 MG; Start 12/29/18 at 21:00 Pantoprazole (Protonix Tab) 40 mg DAILY@06 PO Last administered on 01/07/19 05:43; Admin Dose 40 MG; Start 12/30/18 at 06:00 Docusate Sodium (Colace) 100 mg BID PO Last administered on 01/08/19 09:05; Admin Dose 100 MG; Start 12/29/18 at 18:30 Vancomycin HCl 250 ml @ 125 mls/hr Q48H IVPB Last administered on 01/07/19 07:03; Admin Dose 125 MLS/HR; Start 01/03/19 at 06:00 Clopidogrel Bisulfate (plaVIX) 75 mg DAILY PO Last administered on 01/08/19 09:05; Admin Dose 75 MG; Start 01/03/19 at 09:00 Furosemide (Lasix) 40 mg DAILY IV Last administered on 01/08/19 09:04; Admin Dose 40 MG; Start 01/03/19 at 09:00 Ranolazine (Ranexa) 1,000 mg Q12 PO Last administered on 01/08/19 09:06; Admin Dose 1,000 MG; Start 01/03/19 at 13:30 Piperacillin Sod/ Tazobactam Sod 50 ml @ 100 mls/hr Q8 IVPB Last administered on 01/08/19 14:57; Admin Dose 100 MLS/HR; Start 01/03/19 at 22:00 Morphine Sulfate (morphine) 1 mg Q1H PRN IV SEVERE PAIN LEVEL 7-10 Last administered on 01/08/19 09:03; Admin Dose 1 MG; Start 01/04/19 at 16:00 Polyethylene Glycol (Miralax) 17 gm BID PRN PO CONSTIPATION Last administered on 01/06/19 13:44; Admin Dose 17 GM; Start 01/06/19 at 13:00 Carvedilol (Coreg) 25 mg BID PO Last administered on 01/08/19 09:05; Admin Dose 25 MG; Start 01/06/19 at 21:00 IV Flush (NS 10 ml) 10 ml PRN PRN IV flush; Start 01/06/19 at 18:30 Bisacodyl (Dulcolax Supp) 10 mg DAILY PRN [place] CONSTIPATION; Start 01/06/19 at 19:00 Insulin Aspart (Novolog Insulin Pen) NOVOLOG *MILD* ALGORI... Q4 SC Last administered on 01/08/19 10:05; Admin Dose 3 UNIT; Start 01/07/19 at 05:00 Isosorbide Mononitrate (Imdur) 60 mg DAILY PO Last administered on 01/08/19 09:05; Admin Dose 60 MG; Start 01/08/19 at 09:00 Albuterol/ Ipratropium (Duoneb) 3 ml Q4H RESP THERAPY PRN HHN SHORTNESS OF BREATH Last administered on 01/08/19at 12:01; Admin Dose 3 ML; Start 01/07/19 at 20:00 Nitroglycerin/ Dextrose 250 ml @ 1.5 mls/hr TITRATE IV Last administered on 01/08/19at 15:04; Admin Dose 27 MLS/HR; Start 01/08/19 at 10:49 Miscellaneous Information (*Rx Drug Level Order Reminder*) 1 0500 ONCE XX ; St art 01/09/19 at 05:00; Stop 01/09/19 at 05:01 PATTI CALLEJAS MD January 08, 2019 15:12
[2019-01-08] MEDS ORDERED: MIDAZOLAM 1 MG/ML 2 ML INJ ONE (15:28)
[2019-01-08] MEDS ORDERED: FENTAnyl 50 MCG/ML VIAL ONE (15:28)
[2019-01-08] MEDS ORDERED: HEPARIN 1000 UNITS/ML 10 ML INJ ONE (16:17)
[2019-01-08] MEDS ORDERED: IOHEXOL 350MG/ML 50 ML BTL ONE (16:20)
[2019-01-08] MEDS ORDERED: IODIXANOL LOCM 100 ML BTL ONE (16:20)
[2019-01-08] MEDS ORDERED: LIDOCAINE 1% (MDV) 20 ML INJ ONE (16:20)
--- NOTE | 2019-01-08 16:42 | CONS ---
Assessment/Plan Assessment/Plan Hospital Course (Demo Recall) 83 yo with STEMI/new LBBB, with severe 2V CAD, culprit lesion is LAD with SHERIN 2 flow on cath, with ischemic cardiomyopathy, lvef 40-45% and severe aortic regurgitation. LOUIE negative for vegetations. Course complicated by acute heart failure, and recurrent chest pain. Underwent urgent PCI to mid LAD on Thursday 01/04. Today underwent PCI of the RCA, LVEDP found to be elevated at 36, and LAD stent placed by Dr. Cantu is patent. 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 If chest pain persists, doubt it is cardiac in nature, as significant coronary lesions have been revascularized percutaneously At this point, transfer to [facility] is likely not necessary Procedure result discussed with patient's son over the telephone. PT/OT and discharge planning Consultation Date/Type/Reason Admit Date/Time December 28, 2018 at 03:23 Initial Consult Date 12/28/18 Type of Consult Cardiology Requesting Provider: KRYSTAL BERNARD Date/Time of Note DATE: 01/08/19 TIME: 16:35 24 HR Interval Summary Free Text/Dictation Overnight pt had 7 beats of VT, had more chest pain, nitro turned up. Patient also became dyspneic and received furosemide. Today I performed PCI of the proximal RCA with placement of one stent. Stent placed by Dr. Cantu on Saturday looks stable on angiography. Subjective hx not possible: pt non-verbal Exam/Review of Systems Vital Signs Vitals Vital Signs Date Temp Pulse Resp B/P (MAP) Pulse Ox O2 O2 Flow FiO2 Time Delivery Rate 01/08/19 94 23 139/42 97 15:00 (74) 01/08/19 Nasal 6.0 12:03 Cannula 01/08/19 97.8 12:00 01/08/19 35 10:15 Intake and Output 5/01/07/19 01/08/19 1515:00 23:00 07:00 IntakeIntake Total 907 ml 469.3 ml 311.5 ml OutputOutput Total 385 ml 195 ml 175 ml BalanceBalance 522 ml 274.3 ml 136.5 ml Exam Constitutional: alert; No distress Psych: anxiety Head: normocephalic, atraumatic Eyes: EOMI, nl lids ENMT: nl external ears & nose Neck: No bruits Respiratory: diminished breath sounds Cardiovascular: regular rate and rhythm, murmurs/extra sounds Gastrointestinal: soft, non-tender Musculoskeletal: nl extremities to inspection Extremities: No edema Skin: ecchymosis Labs Result Diagram: 01/08/19 0255 01/08/19 0255 Results 24hrs Laboratory Tests Test 01/07/19 17:28 01/07/19 20:37 01/08/19 01:35 01/08/19 02:04 Bedside Glucose 145 139 151 Blood Gas Blood arterial Specimen Source Arterial Blood 01/08/2019 2:15: Date Drawn 27 AM Arterial Blood 7.342 L pH (Temp corrected) Arterial Blood 44.6 pCO2 (Temp correct) Arterial Blood 86.7 pO2 (Temp corrected) Arterial Blood 23.6 HCO3 Arterial Blood -2.1 Base Excess Arterial Blood 95.1 Oxygen Saturatio n Francis Test ACCEPTAB Arterial Blood Right Radial Gas Puncture Site Arterial 0.3 Blood Carboxyhem oglobin Arterial Blood 0.3 Methemoglobin Blood Gas A-a O2 96.5 H Differential Oxyhemoglobin 94.5 Percent Blood Gas 37.0 Temperature Blood Gas Actual 28 Respiration Rate Blood Gas NASAL CANNULA Modality FiO2 33.0 Blood Gas MG Notified Whom Blood Gas 01/08/2019 2:24: Notified Time 58 AM Test 01/08/19 02:55 01/08/19 04:19 01/08/19 05:13 01/08/19 09:59 White Blood 24.4 H Count Red Blood Count 2.98 #L Hemoglobin 9.0 #L Hematocrit 29.0 #L Mean Corpuscular 97.3 Volume Mean Corpuscular 30.2 Hemoglobin Mean Corpuscular 31.0 L Hemoglobin Devika nt Red Cell 17.2 H Distribution Width Platelet Count 350 Mean Platelet 9.8 Volume Immature 1.400 H Granulocytes % Neutrophils % 92.7 H Lymphocytes % 4.2 L Monocytes % 0.9 Eosinophils % 0.5 Basophils % 0.3 Nucleated Red 0.1 H Blood Cells % Immature 0.330 H Granulocytes # Neutrophils # 22.6 H Lymphocytes # 1.0 Monocytes # 0.2 L Eosinophils # 0.1 Basophils # 0.1 Nucleated Red 0.0 Blood Cells # Sodium Level 146 H Potassium Level 4.0 Chloride Level 110 Carbon Dioxide 24 Level Anion Gap 12 Blood Urea 44 H Nitrogen Creatinine 1.97 H Est Glomerular Filtrat Rate mL/min Glucose Level 215 Calcium Level 8.2 L Phosphorus Level 5.0 H Magnesium Level 2.2 Total Bilirubin 0.6 Direct Bilirubin 0.00 Indirect 0.6 Bilirubin Aspartate Amino 24 Transf (AST/SGOT ) Alanine 25 Aminotransferase (ALT/SGPT) Alkaline 69 Phosphatase Troponin I 0.580 *H Total Protein 5.9 L Albumin 3.1 L Globulin 2.80 Albumin/Globulin 1.10 Ratio Bedside Glucose 201 226 H Lab Scanned BLOOD TRANSFUSI Report ON Test 01/08/19 13:09 Bedside Glucose 139 Medications Medications Current Medications IV Flush (NS 3 ml) 3 ml PER PROTOCOL IV ; Start 12/28/18 at 04:30 Ondansetron HCl (Zofran Inj) 4 mg Q6H PRN IV NAUSEA/VOMITING Last administered on 01/04/19at 08:54; Admin Dose 4 MG; Start 12/28/18 at 04:30 Aspirin (Aspirin) 81 mg DAILY PO Last administered on 01/08/19at 09:05; Admin Dose 81 MG; Start 12/28/18 at 09:00 Nitroglycerin (Nitroglycerin (Sl Tab) 0.4 Mg) 1 tab Q5M PRN SL .CHEST PAIN Last administered on 01/07/19at 16:15; Admin Dose 1 TAB; Start 12/28/18 at 04:30 Diagnostic Test (Pha) (Accu-Chek) 1 ea 02 XX Last administered on 01/07/19at 01:42; Admin Dose 1 EA; Start 12/29/18 at 02:00 Miscellaneous Information 1 ea NOTE XX ; Start 12/28/18 at 05:00 Glucose (Glutose) 15 gm Q15M PRN PO DECREASED GLUCOSE; Start 12/28/18 at 05:00 Glucose (Glutose) 22.5 gm Q15M PRN PO DECREASED GLUCOSE; Start 12/28/18 at 05:00 Dextrose (D50w Syringe) 25 ml Q15M PRN IV DECREASED GLUCOSE; Start 12/28/18 at 05:00 Dextrose (D50w Syringe) 50 ml Q15M PRN IV DECREASED GLUCOSE; Start 12/28/18 at 05:00 Glucagon (Glucagen) 1 mg Q15M PRN IM DECREASED GLUCOSE; Start 12/28/18 at 05:00 Glucose (Glutose) 15 gm Q15M PRN BUCCAL DECREASED GLUCOSE; Start 12/28/18 at 05:00 Atorvastatin Calcium (Lipitor) 80 mg HS PO Last administered on 01/07/19at 20:28; Admin Dose 80 MG; Start 12/29/18 at 21:00 Phenol (Cepastat Lozenge) 1 lozenge Q1H PRN MT COUGH Last administered on 01/03/19at 13:05; Admin Dose 1 LOZENGE; Start 12/28/18 at 17:30 Vancomycin HCl (Vanco Iv Per Pharmacy) VANCOMYCIN PER PHARMACY PER PROTOCOL XX ; Start 12/29/18 at 05:30 Escitalopram Oxalate (Lexapro) 10 mg DAILY PO Last administered on 01/08/19at 09:04; Admin Dose 10 MG; Start 12/29/18 at 09:30 Risedronate (Actonel) 35 mg Tu@AC BREAKFAST PO ; Start 12/30/18 at 07:00 Mirtazapine (Remeron) 15 mg HS PO Last administered on 01/07/19at 20:29; Admin Dose 15 MG; Start 12/29/18 at 21:00 Pantoprazole (Protonix Tab) 40 mg DAILY@06 PO Last administered on 01/07/19at 05:43; Admin Dose 40 MG; Start 12/30/18 at 06:00 Docusate Sodium (Colace) 100 mg BID PO Last administered on 01/08/19 09:05; Admin Dose 100 MG; Start 12/29/18 at 18:30 Vancomycin HCl 250 ml @ 125 mls/hr Q48H IVPB Last administered on 01/07/19 07:03; Admin Dose 125 MLS/HR; Start 01/03/19 at 06:00 Clopidogrel Bisulfate (plaVIX) 75 mg DAILY PO Last administered on 01/08/19 09:05; Admin Dose 75 MG; Start 01/03/19 at 09:00 Furosemide (Lasix) 40 mg DAILY IV Last administered on 01/08/19 09:04; Admin Dose 40 MG; Start 01/03/19 at 09:00 Ranolazine (Ranexa) 1,000 mg Q12 PO Last administered on 01/08/19 09:06; Admin Dose 1,000 MG; Start 01/03/19 at 13:30 Piperacillin Sod/ Tazobactam Sod 50 ml @ 100 mls/hr Q8 IVPB Last administered on 01/08/19 14:57; Admin Dose 100 MLS/HR; Start 01/03/19 at 22:00 Morphine Sulfate (morphine) 1 mg Q1H PRN IV SEVERE PAIN LEVEL 7-10 Last administered on 01/08/19 09:03; Admin Dose 1 MG; Start 01/04/19 at 16:00 Polyethylene Glycol (Miralax) 17 gm BID PRN PO CONSTIPATION Last administered on 01/06/19 13:44; Admin Dose 17 GM; Start 01/06/19 at 13:00 Carvedilol (Coreg) 25 mg BID PO Last administered on 01/08/19 09:05; Admin Dose 25 MG; Start 01/06/19 at 21:00 IV Flush (NS 10 ml) 10 ml PRN PRN IV flush; Start 01/06/19 at 18:30 Bisacodyl (Dulcolax Supp) 10 mg DAILY PRN [place] CONSTIPATION; Start 01/06/19 at 19:00 Insulin Aspart (Novolog Insulin Pen) NOVOLOG *MILD* ALGORI... Q4 SC Last administered on 01/08/19 10:05; Admin Dose 3 UNIT; Start 01/07/19 at 05:00 Isosorbide Mononitrate (Imdur) 60 mg DAILY PO Last administered on 01/08/19 09:05; Admin Dose 60 MG; Start 01/08/19 at 09:00 Albuterol/ Ipratropium (Duoneb) 3 ml Q4H RESP THERAPY PRN HHN SHORTNESS OF BREATH Last administered on 01/08/19 12:01; Admin Dose 3 ML; Start 01/07/19 at 20:00 Nitroglycerin/ Dextrose 250 ml @ 1.5 mls/hr TITRATE IV Last administered on 01/08/19 15:04; Admin Dose 27 MLS/HR; Start 01/08/19 at 10:49 Miscellaneous Information (*Rx Drug Level Order Reminder*) 1 0500 ONCE XX ; Start 01/09/19 at 05:00; Stop 01/09/19 at 05:01 Miscellaneous Information (* Miscellaneous Pharmacy Order) Hold all Metformin ... ONCE ONCE XX ; Start 01/08/19 at 16:30; Stop 01/08/19 at 16:31; Status UNV RODRIGUEZ GARZA January 08, 2019 16:42
--- NOTE | 2019-01-08 16:51 | OPR ---
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 She was evaluated for CABG/valve surgery but was felt to be high risk due to age, renal function, and dementia. Therefore it was felt appropriate to do a staged PCI procedure. She underwent PCI with stenting of th e mid LAD on Saturday, and today is here for PCI/stenting of the proximal RCA. Procedure Description Findings: LM - OK LCX - OK LAD - stent to mid LAD is patent, with good runoff into the distal LAD with SHERIN 3 flow RCA - 80% long lesion in the proximal portion LVEDP - 36 Procedure: Informed consent obtained from . Versed and fentanyl given for sedation. Using micropuncture and fluoroscopic guidance, the right REAL ESTATE OFFICE MANAGER was accessed and a 6F sheath placed. Through the sheath, a JL4 catheter was advanced; as the patient has had ongoing chest pain, it was felt appropriate to assess the patency of the LAD stent. Angiography performed in multiple projections, and images obtained. Then a JR4 guide with sideholes was advanced, engaged the RCA, a Lam wire was passed after heparin given, and balloon angioplasty performed with a 2.5 x 12, twice within the lesion. While attempting to place the stent, the catheter would not back out sufficiently for proximal placement, and ultimately disengaged. Therefore we changed to a Gerardo Right posterior guide, which provided better support for stent placement. The vessel was re- wired, and an [place]sel[place] 3.0x30 mm stent advanced across the lesion and deployed. Angiography was performed in multiple projections following this, and felt to be well placed without dissection. Finally, a pigtail catheter was advanced, crossed the LV, and measured LVEDP, which was elevated, and a pullback gradient measured. Then after injection through the sidearm of the sheath, an angioseal device was deployed. Patient left the room in stable condition. Because of elevated LVEDP, fluids have not been ordered. RODRIGUEZ GARZA January 08, 2019 16:51
[2019-01-08] MEDS: MIRTAZAPINE 15 MG TAB PO SCH (20:24)
[2019-01-08] MEDS: ATORVASTATIN 80 MG TAB PO SCH (20:24)
[2019-01-09] VITALS (68 sets, daily range): BP systolic 121–170; BP diastolic 37–113; PULSE 71–91; RESP 15–38
[2019-01-09] MEDS: ALBUTEROL/IPRATROPIUM (NEB) 3 ML AMP HHN PRN (00:19)
[2019-01-09] MEDS: INSULIN ASPART [NOVOLOG] 3 ML PEN SC SCH ×6 (01:16→20:24)
[2019-01-09] MEDS: ACCU-CHEK XX SCH (01:17)
[2019-01-09] MEDS: morphine 2 MG INJ IV PRN ×3 (03:01→20:35)
[2019-01-09] MEDS: PANTOPRAZOLE (EC) 40 MG TAB PO SCH (05:21)
[2019-01-09] MEDS: PIPER-TAZO 2.25 GM (PMX) 50 ML IVPB SCH (05:21)
[2019-01-09] MEDS: VANCOMYCIN 1 GM 250 ML IVPB SCH (06:34)
--- NOTE | 2019-01-09 08:59 | CONS ---
Assessment/Plan Assessment/Plan Hospital Course (Demo Recall) 83 yo with STEMI/new LBBB, with severe 2V CAD, culprit lesion is LAD with SHERIN 2 flow on cath, with ischemic cardiomyopathy, lvef 40-45% and severe aortic regurgitation. LOUIE negative for vegetations. Course complicated by acute heart failure, acute renal failure, and recurrent chest pain. Underwent urgent PCI to mid LAD on Thursday 01/04, and staged PCI of the RCA yesterday. 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 Will stop Ranexa. Nitro drip is off. Would NOT restart nitro drip, chest pain is not cardiac, could be anxiety vs gerd, on my exam her chest pain is actually epigastric pain I have ordered physical therapy Will defer to the hospitalist for treatment of anxiety and rash She could be transferred from the unit Discharge planning Consultation Date/Type/Reason Admit Date/Time December 28, 2018 at 03:23 Initial Consult Date 12/28/18 Type of Consult Cardiology Requesting Provider: KRYSTAL BERNARD Date/Time of Note DATE: 01/09/19 TIME: 08:52 24 HR Interval Summary Free Text/Dictation This morning patient and seen with Manju KNOX serving as area development manager. Patient states she has pain, points to her epigastrum. She states she feels week, and admits to feeling anxious. She takes Lexapro at home for anxiety, which has been continued here. Also, she has a new rash that is not pruritic. Exam/Review of Systems Vital Signs Vitals Vital Signs Date Temp Pulse Resp B/P (MAP) Pulse Ox O2 O2 Flow FiO2 Time Delivery Rate 01/09/19 97.9 78 29 146/40 99 08:15 (75) 01/09/19 Nasal 4.0 08:00 Cannula 01/09/19 35 00:01 Intake and Output 01/08/19 01/08/19 01/09/19 1515:00 23:00 07:00 IntakeIntake Total 201.0 ml 300 ml 283.0 ml OutputOutput Total 145 ml 286 ml 185 ml BalanceBalance 56.0 ml 14 ml 98.0 ml Exam Constitutional: alert, well developed Psych: anxiety Head: normocephalic, atraumatic Eyes: EOMI, nl lids, nl sclera ENMT: nl external ears & nose, nl lips & teeth Neck: supple; No jvd, No bruits Respiratory: clear to auscultation, normal air movement Cardiovascular: regular rate and rhythm, murmurs/extra sounds; No jugular venous distention (JVD) Gastrointestinal: soft, nl liver, spleen, non-tender Musculoskeletal: nl extremities to inspection Extremities: other (right groin site intact, no bruit, no hematoma, no tenderness to palpation); No edema Neurological: nl speech Skin: rash or lesions (erythematous rash of trunk and top of legs) Labs Result Diagram: 01/09/19 0430 01/09/19 0430 Results 24hrs Laboratory Tests Test 01/08/19 09:59 01/08/19 13:09 01/08/19 17:45 01/08/19 20:08 Bedside Glucose 226 H 139 130 137 Test 01/09/19 01:14 01/09/19 04:30 01/09/19 05:16 01/09/19 08:42 Bedside Glucose 153 154 139 White Blood Count 21.6 H Red Blood Count 2.71 L Hemoglobin 8.0 L Hematocrit 26.3 L Mean Corpuscular 97.0 Volume Mean Corpuscular 29.5 Hemoglobin Mean Corpuscular 30.4 L Hemoglobin Concent Red Cell 17.5 H Distribution Width Platelet Count 351 Mean Platelet Volume 10.0 Immature 1.300 H Granulocytes % Neutrophils % 87.0 H Lymphocytes % 6.9 L Monocytes % 3.9 Eosinophils % 0.6 Basophils % 0.3 Nucleated Red Blood 0.2 H Cells % Immature 0.280 H Granulocytes # Neutrophils # 18.8 H Lymphocytes # 1.5 Monocytes # 0.8 Eosinophils # 0.1 Basophils # 0.1 Nucleated Red Blood 0.1 H Cells # Sodium Level 146 H Potassium Level 3.5 Chloride Level 109 Carbon Dioxide Level 27 Anion Gap 10 Blood Urea Nitrogen 57 H Creatinine 2.62 H Est Glomerular Filtrat Rate mL/min Glucose Level 117 # Calcium Level 8.6 Phosphorus Level 4.7 Magnesium Level 2.3 Vancomycin Level 18.4 Trough Imaging Imaging EKG last night and this am reviewed, nsr with lbbb Medications Medications Current Medications IV Flush (NS 3 ml) 3 ml PER PROTOCOL IV ; Start 12/28/18 at 04:30 Ondansetron HCl (Zofran Inj) 4 mg Q6H PRN IV NAUSEA/VOMITING Last administered on 01/04/19at 08:54; Admin Dose 4 MG; Start 12/28/18 at 04:30 Aspirin (Aspirin) 81 mg DAILY PO Last administered on 01/08/19at 09:05; Admin Dose 81 MG; Start 12/28/18 at 09:00 Nitroglycerin (Nitroglycerin (Sl Tab) 0.4 Mg) 1 tab Q5M PRN SL .CHEST PAIN Last administered on 01/07/19at 16:15; Admin Dose 1 TAB; Start 12/28/18 at 04:30 Diagnostic Test (Pha) (Accu-Chek) 1 ea 02 XX Last administered on 01/09/19at 01:17; Admin Dose 1 EA; Start 12/29/18 at 02:00 Miscellaneous Information 1 ea NOTE XX ; Start 12/28/18 at 05:00 Glucose (Glutose) 15 gm Q15M PRN PO DECREASED GLUCOSE; Start 12/28/18 at 05:00 Glucose (Glutose) 22.5 gm Q15M PRN PO DECREASED GLUCOSE; Start 12/28/18 at 05:00 Dextrose (D50w Syringe) 25 ml Q15M PRN IV DECREASED GLUCOSE; Start 12/28/18 at 05:00 Dextrose (D50w Syringe) 50 ml Q15M PRN IV DECREASED GLUCOSE; Start 12/28/18 at 05:00 Glucagon (Glucagen) 1 mg Q15M PRN IM DECREASED GLUCOSE; Start 12/28/18 at 05:00 Glucose (Glutose) 15 gm Q15M PRN BUCCAL DECREASED GLUCOSE; Start 12/28/18 at 05:00 Atorvastatin Calcium (Lipitor) 80 mg HS PO Last administered on 01/08/19at 20:24; Admin Dose 80 MG; Start 12/29/18 at 21:00 Phenol (Cepastat Lozenge) 1 lozenge Q1H PRN MT COUGH Last administered on 01/03/19 13:05; Admin Dose 1 LOZENGE; Start 12/28/18 at 17:30 Vancomycin HCl (Vanco Iv Per Pharmacy) VANCOMYCIN PER PHARMACY PER PROTOCOL XX ; Start 12/29/18 at 05:30 Escitalopram Oxalate (Lexapro) 10 mg DAILY PO Last administered on 01/08/19 09:04; Admin Dose 10 MG; Start 12/29/18 at 09:30 Risedronate (Actonel) 35 mg Tu@AC BREAKFAST PO ; Start 12/30/18 at 07:00 Mirtazapine (Remeron) 15 mg HS PO Last administered on 01/08/19 20:24; Admin Dose 15 MG; Start 12/29/18 at 21:00 Pantoprazole (Protonix Tab) 40 mg DAILY@06 PO Last administered on 01/09/19 05:21; Admin Dose 40 MG; Start 12/30/18 at 06:00 Docusate Sodium (Colace) 100 mg BID PO Last administered on 01/08/19 20:24; Admin Dose 100 MG; Start 12/29/18 at 18:30 Vancomycin HCl 250 ml @ 125 mls/hr Q48H IVPB Last administered on 01/09/19 06:34; Admin Dose 125 MLS/HR; Start 01/03/19 at 06:00 Clopidogrel Bisulfate (plaVIX) 75 mg DAILY PO Last administered on 01/08/19 09:05; Admin Dose 75 MG; Start 01/03/19 at 09:00 Furosemide (Lasix) 40 mg DAILY IV Last administered on 01/08/19 09:04; Admin D ose 40 MG; Start 01/03/19 at 09:00 Ranolazine (Ranexa) 1,000 mg Q12 PO Last administered on 01/08/19 20:24; Admin Dose 1,000 MG; Start 01/03/19 at 13:30 Piperacillin Sod/ Tazobactam Sod 50 ml @ 100 mls/hr Q8 IVPB Last administered on 01/09/19 05:21; Admin Dose 100 MLS/HR; Start 01/03/19 at 22:00 Morphine Sulfate (morphine) 1 mg Q1H PRN IV SEVERE PAIN LEVEL 7-10 Last administered on 01/09/19 03:01; Admin Dose 1 MG; Start 01/04/19 at 16:00 Polyethylene Glycol (Miralax) 17 gm BID PRN PO CONSTIPATION Last administered on 01/06/19at 13:44; Admin Dose 17 GM; Start 01/06/19 at 13:00 Carvedilol (Coreg) 25 mg BID PO Last administered on 01/08/19at 20:22; Admin Dose 25 MG; Start 01/06/19 at 21:00 IV Flush (NS 10 ml) 10 ml PRN PRN IV flush; Start 01/06/19 at 18:30 Bisacodyl (Dulcolax Supp) 10 mg DAILY PRN [place] CONSTIPATION; Start 01/06/19 at 19:00 Insulin Aspart (Novolog Insulin Pen) NOVOLOG *MILD* ALGORI... Q4 SC Last administered on 01/09/19at 05:20; Admin Dose 1 UNIT; Start 01/07/19 at 05:00 Isosorbide Mononitrate (Imdur) 60 mg DAILY PO Last administered on 01/08/19at 09:05; Admin Dose 60 MG; Start 01/08/19 at 09:00 Albuterol/ Ipratropium (Duoneb) 3 ml Q4H RESP THERAPY PRN HHN SHORTNESS OF BREATH Last administered on 01/09/19at 00:19; Admin Dose 3 ML; Start 01/07/19 at 20:00 RODRIGUEZ GARZA January 09, 2019 08:59
[2019-01-09] MEDS: ASPIRIN 81 MG TAB PO SCH (09:07)
[2019-01-09] MEDS: DOCUSATE SODIUM 100 MG CAP PO SCH ×2 (09:07→20:23)
[2019-01-09] MEDS: ESCITALOPRAM 10 MG TAB PO SCH (09:08)
[2019-01-09] MEDS: CLOPIDOGREL 75 MG TAB PO SCH (09:08)
[2019-01-09] MEDS: ISOSORBIDE MONONITRATE(SR)60 MG TAB PO SCH (09:09)
[2019-01-09] MEDS: FUROSEMIDE 40 MG INJ IV SCH (09:10)
[2019-01-09] MEDS: RANOLAZINE (SR) 500 MG TAB PO SCH ×2 (09:39→20:22)
--- NOTE | 2019-01-09 10:46 | PN ---
Date/Time of Note Date/Time of Note DATE: 01/09/19 TIME: 10:40 Assessment/Plan VTE Prophylaxis Risk score (from Ns)>0 risk: 11 SCD applied (from Ns): Yes Pharmacological prophylaxis: heparin Lines/Catheters [facility] ([facility] PICC Line Central line still needed: Yes Urinary Cath still in place: Yes Reason Cath still needed: urinary retention Assessment/Plan Assessment/Plan 83 yo [place]ian-speaking woman with history of dementia, hypertension, dyslipidemia, severe MR and aortic stenosis, arrhythmia who presents with ACS and multi-vessel coronary artery disease. #Acute SC #CAD - STEMI with LBBB - patient had cardiac cath on 12/28, found with: Severe 2 vessel CAD, LAD and RCA, LAD is culprit with francine 2 flow, and cardiomyopathy with LVEF 35%. Again patient also with severe aortic regurgitation and at least moderate mitral regurgitation. - Continue, Lipitor, beta-geovanny, statin, Plavix and Imdur - Now s/p PCI to LAD (01/04) and RCA (01/08) - She does also have severe AI, may need TAVR in the future. #Acute CHF exacerbation - likely due to acute ischemic CAD/STEMI - currently on IV lasix - Stopped nitro gtt yesterday. #Bacteremia: 2 out of 2 bottles positive for coagulase-negative staph - Finished 7 days of zosyn+vanco. - I did a shorter course because I'm concerned the Abx are causing a drug rash. - Repeated blood cultures yesterday, follow up. #Rash - Erythematous, macular rash on lower abdomen and part of chest noted 01/07 - May be related to transfusion, or drug reaction. - Got decadon, benadryl, pepcid without significant improvement. - Stopped zosyn and vanco, this may have been a delayed drug reaction. #WILLIAM: Patient has adequate urine output. -Monitor, follow-up recommendations from renal consult -For now continue IV Lasix once a day, monitor urine output and BUN/creatinine levels -No CRISTINO or ARB at this time GI: PPI Critical care time spent in patient care today equals 45 minutes. Dispo: insisted patient stay in ICU one more day. Plan for transfer to telemetry tomorrow. Result Diagram: 01/09/19 0430 01/09/19 043 Subjective 24 Hr Interval Summary Free Text/Dictation Patient went for PCI yesterday. This morning appears more comfortable. Saturating well on 4L NC. Exam/Review of Systems Exam Vitals Vital Signs Date Temp Pulse Resp B/P (MAP) Pulse Ox O2 O2 Flow FiO2 Time Delivery Rate 01/09/19 97.9 78 29 146/40 99 08:15 (75) 01/09/19 Nasal 4.0 08:00 Cannula 01/09/19 35 00:01 Intake and Output 01/08/19 01/08/19 01/09/19 1515:00 23:00 07:00 IntakeIntake Total 201.0 ml 300 ml 283.0 ml OutputOutput Total 145 ml 286 ml 185 ml BalanceBalance 56.0 ml 14 ml 98.0 ml Exam Gen: Frail appearing elderly woman lying in bed, breathing comfortably on nasal cannula. HEENT: moist mucous membranes, clear oropharynx Neck: Supple Card: Regular rate and rhythm, 2/6 JAZMINE. Pulm: Coarse breath sounds bilaterally, diminished basilar breath sounds. Abd: Guarding, nondistended. Ext: No LE edema B/L. Skin: Erythematous macular rash along trunk and bilateral upper thighs. Results Results 24hrs Laboratory Tests Test 01/08/19 13:09 01/08/19 17:45 01/08/19 20:08 01/09/19 01:14 Bedside Glucose 139 130 137 153 Test 01/09/19 04:30 01/09/19 05:16 01/09/19 08:42 White Blood Count 21.6 H Red Blood Count 2.71 L Hemoglobin 8.0 L Hematocrit 26.3 L Mean Corpuscular 97.0 Volume Mean Corpuscular 29.5 Hemoglobin Mean Corpuscular 30.4 L Hemoglobin Concent Red Cell 17.5 H Distribution Width Platelet Count 351 Mean Platelet Volume 10.0 Immature 1.300 H Granulocytes % Neutrophils % 87.0 H Lymphocytes % 6.9 L Monocytes % 3.9 Eosinophils % 0.6 Basophils % 0.3 Nucleated Red Blood 0.2 H Cells % Immature 0.280 H Granulocytes # Neutrophils # 18.8 H Lymphocytes # 1.5 Monocytes # 0.8 Eosinophils # 0.1 Basophils # 0.1 Nucleated Red Blood 0.1 H Cells # Sodium Level 146 H Potassium Level 3.5 Chloride Level 109 Carbon Dioxide Level 27 Anion Gap 10 Blood Urea Nitrogen 57 H Creatinine 2.62 H Est Glomerular Filtrat Rate mL/min Glucose Level 117 # Calcium Level 8.6 Phosphorus Level 4.7 Magnesium Level 2.3 Vancomycin Level 18.4 Trough Bedside Glucose 154 139 Medications Medication Current Medications IV Flush (NS 3 ml) 3 ml PER PROTOCOL IV ; Start 12/28/18 at 04:30 Ondansetron HCl (Zofran Inj) 4 mg Q6H PRN IV NAUSEA/VOMITING Last administered on 01/04/19at 08:54; Admin Dose 4 MG; Start 12/28/18 at 04:30 Aspirin (Aspirin) 81 mg DAILY PO Last administered on 01/09/19at 09:07; Admin Dose 81 MG; Start 12/28/18 at 09:00 Nitroglycerin (Nitroglycerin (Sl Tab) 0.4 Mg) 1 tab Q5M PRN SL .CHEST PAIN Last administered on 01/07/19at 16:15; Admin Dose 1 TAB; Start 12/28/18 at 04:30 Diagnostic Test (Pha) (Accu-Chek) 1 ea 02 XX Last administered on 01/09/19at 01:17; Admin Dose 1 EA; Start 12/29/18 at 02:00 Miscellaneous Information 1 ea NOTE XX ; Start 12/28/18 at 05:00 Glucose (Glutose) 15 gm Q15M PRN PO DECREASED GLUCOSE; Start 12/28/18 at 05:00 Glucose (Glutose) 22.5 gm Q15M PRN PO DECREASED GLUCOSE; Start 12/28/18 at 05:00 Dextrose (D50w Syringe) 25 ml Q15M PRN IV DECREASED GLUCOSE; Start 12/28/18 at 05:00 Dextrose (D50w Syringe) 50 ml Q15M PRN IV DECREASED GLUCOSE; Start 12/28/18 at 05:00 Glucagon (Glucagen) 1 mg Q15M PRN IM DECREASED GLUCOSE; Start 12/28/18 at 05:00 Glucose (Glutose) 15 gm Q15M PRN BUCCAL DECREASED GLUCOSE; Start 12/28/18 at 05:00 Atorvastatin Calcium (Lipitor) 80 mg HS PO Last administered on 01/08/19at 20:24; Admin Dose 80 MG; Start 12/29/18 at 21:00 Phenol (Cepastat Lozenge) 1 lozenge Q1H PRN MT COUGH Last administered on 01/03/19 13:05; Admin Dose 1 LOZENGE; Start 12/28/18 at 17:30 Vancomycin HCl (Vanco Iv Per Pharmacy) VANCOMYCIN PER PHARMACY PER PROTOCOL XX ; Start 12/29/18 at 05:30 Escitalopram Oxalate (Lexapro) 10 mg DAILY PO Last administered on 01/09/19 09:08; Admin Dose 10 MG; Start 12/29/18 at 09:30 Risedronate (Actonel) 35 mg Tu@AC BREAKFAST PO ; Start 12/30/18 at 07:00 Mirtazapine (Remeron) 15 mg HS PO Last administered on 01/08/19 20:24; Admin Dose 15 MG; Start 12/29/18 at 21:00 Pantoprazole (Protonix Tab) 40 mg DAILY@06 PO Last administered on 01/09/19 05:21; Admin Dose 40 MG; Start 12/30/18 at 06:00 Docusate Sodium (Colace) 100 mg BID PO Last administered on 01/09/19 09:07; Admin Dose 100 MG; Start 12/29/18 at 18:30 Vancomycin HCl 250 ml @ 125 mls/hr Q48H IVPB Last administered on 01/09/19 06:34; Admin Dose 125 MLS/HR; Start 01/03/19 at 06:00 Clopidogrel Bisulfate (plaVIX) 75 mg DAILY PO Last administered on 01/09/19 09:08; Admin Dose 75 MG; Start 01/03/19 at 09:00 Furosemide (Lasix) 40 mg DAILY IV Last administered on 01/09/19 09:10; Admin Dose 40 MG; Start 01/03/19 at 09:00 Ranolazine (Ranexa) 1,000 mg Q12 PO Last administered on 01/09/19 09:39; Admin Dose 1,000 MG; Start 01/03/19 at 13:30 Piperacillin Sod/ Tazobactam Sod 50 ml @ 100 mls/hr Q8 IVPB Last administered on 01/09/19 05:21; Admin Dose 100 MLS/HR; Start 01/03/19 at 22:00 Morphine Sulfate (morphine) 1 mg Q1H PRN IV SEVERE PAIN LEVEL 7-10 Last administered on 01/09/19 03:01; Admin Dose 1 MG; Start 01/04/19 at 16:00 Polyethylene Glycol (Miralax) 17 gm BID PRN PO CONSTIPATION Last administered on 01/06/19at 13:44; Admin Dose 17 GM; Start 01/06/19 at 13:00 Carvedilol (Coreg) 25 mg BID PO Last administered on 01/09/19at 09:08; Admin Dose 25 MG; Start 01/06/19 at 21:00 IV Flush (NS 10 ml) 10 ml PRN PRN IV flush; Start 01/06/19 at 18:30 Bisacodyl (Dulcolax Supp) 10 mg DAILY PRN [place] CONSTIPATION; Start 01/06/19 at 19:00 Insulin Aspart (Novolog Insulin Pen) NOVOLOG *MILD* ALGORI... Q4 SC Last administered on 01/09/19at 05:20; Admin Dose 1 UNIT; Start 01/07/19 at 05:00 Isosorbide Mononitrate (Imdur) 60 mg DAILY PO Last administered on 01/09/19at 09:09; Admin Dose 60 MG; Start 01/08/19 at 09:00 Albuterol/ Ipratropium (Duoneb) 3 ml Q4H RESP THERAPY PRN HHN SHORTNESS OF BREATH Last administered on 01/09/19at 00:19; Admin Dose 3 ML; Start 01/07/19 at 20:00 Potassium Chloride/Sodium Chloride 1,000 ml @ 50 mls/hr Q20H IV ; Start 01/09/19 at 09:00 ANAM TOMPKINS MD January 09, 2019 10:46
--- NOTE | 2019-01-09 11:00 | CONS ---
Assessment/Plan Assessment/Plan Assessment/Plan (Daily) 1. Acute kidney injury on CKD III 2/2 Hemodynamics from CHF + NSTEMI 2. Hypokalemia 3. Hypernatremia 4. acute NSTEMI s/p LHC showed multivessel obstructive CAD - s/p Successful PTCA and stenting of proximal left anterior descending artery using a 3 x 20 mm Synergy drug-eluting stent on 01/04/19- s/p LHC with proximal RCA stenting on 01/08/19 5. CAD mulitivessels obstructive 6. Anemia of Chronic disease s/p 2 U PRBC on 01/07/19 Plan: BUN/Cr improved slighlty to 57/2.62,, Na 146, off IVF now s/p Successful PTCA and stenting of proximal left anterior descending artery using a 3 x 20 mm Synergy drug-eluting stent on 01/04/19- s/p LHC with proximal RCA stenting on 01/08/19 IV abx zosyn, renally dosed for bacteremia, renally dose all abx and monitor electrolytes IV lasix 40mg IV daily, s/p LOUIE on 12/30/18 showed severe AI and no vegetations, will continue to follow up Consultation Date/Type/Reason Admit Date/Time December 28, 2018 at 03:23 Initial Consult Date 12/28/18 Type of Consult NEPHROLOGY Requesting Provider: KRYSTAL BERNARD Date/Time of Note DATE: 01/09/19 TIME: 11:00 Exam/Review of Systems Exam Vitals Vital Signs Date Temp Pulse Resp B/P (MAP) Pulse Ox O2 O2 Flow FiO2 Time Delivery Rate 01/09/19 97.9 78 29 146/40 99 08:15 (75) 01/09/19 Nasal 4.0 08:00 Cannula 01/09/19 35 00:01 Intake and Output 01/08/19 01/08/19 01/09/19 1515:00 23:00 07:00 IntakeIntake Total 201.0 ml 300 ml 283.0 ml OutputOutput Total 145 ml 286 ml 185 ml BalanceBalance 56.0 ml 14 ml 98.0 ml Exam Gen: Frail , no acute distress Eyes: PERRL, no icterus HEENT: Moist mucous membranes, clear oropharynx Neck: + JVD ,, no lymphadenopathy Card: Regular rate and rhythm, no murmurs appreciated Pulm: Rales throughout. Abd: Soft, nontender, nondistended. Ext: No cyanosis/clubbing/edema. Results Result Diagram: 01/09/19 0430 01/09/19 0430 Results 24hrs Laboratory Tests Test 01/08/19 13:09 01/08/19 17:45 01/08/19 20:08 01/09/19 01:14 Bedside Glucose 139 130 137 153 Test 01/09/19 04:30 01/09/19 05:16 01/09/19 08:42 White Blood Count 21.6 H Red Blood Count 2.71 L Hemoglobin 8.0 L Hematocrit 26.3 L Mean Corpuscular 97.0 Volume Mean Corpuscular 29.5 Hemoglobin Mean Corpuscular 30.4 L Hemoglobin Concent Red Cell 17.5 H Distribution Width Platelet Count 351 Mean Platelet Volume 10.0 Immature 1.300 H Granulocytes % Neutrophils % 87.0 H Lymphocytes % 6.9 L Monocytes % 3.9 Eosinophils % 0.6 Basophils % 0.3 Nucleated Red Blood 0.2 H Cells % Immature 0.280 H Granulocytes # Neutrophils # 18.8 H Lymphocytes # 1.5 Monocytes # 0.8 Eosinophils # 0.1 Basophils # 0.1 Nucleated Red Blood 0.1 H Cells # Sodium Level 146 H Potassium Level 3.5 Chloride Level 109 Carbon Dioxide Level 27 Anion Gap 10 Blood Urea Nitrogen 57 H Creatinine 2.62 H Est Glomerular Filtrat Rate mL/min Glucose Level 117 # Calcium Level 8.6 Phosphorus Level 4.7 Magnesium Level 2.3 Vancomycin Level 18.4 Trough Bedside Glucose 154 139 Medications Medication Current Medications IV Flush (NS 3 ml) 3 ml PER PROTOCOL IV ; Start 12/28/18 at 04:30 Ondansetron HCl (Zofran Inj) 4 mg Q6H PRN IV NAUSEA/VOMITING Last administered on 01/04/19at 08:54; Admin Dose 4 MG; Start 12/28/18 at 04:30 Aspirin (Aspirin) 81 mg DAILY PO Last administered on 01/09/19at 09:07; Admin Dose 81 MG; Start 12/28/18 at 09:00 Nitroglycerin (Nitroglycerin (Sl Tab) 0.4 Mg) 1 tab Q5M PRN SL .CHEST PAIN Last administered on 01/07/19at 16:15; Admin Dose 1 TAB; Start 12/28/18 at 04:30 Diagnostic Test (Pha) (Accu-Chek) 1 ea 02 XX Last administered on 01/09/19at 01:17; Admin Dose 1 EA; Start 12/29/18 at 02:00 Miscellaneous Information 1 ea NOTE XX ; Start 12/28/18 at 05:00 Glucose (Glutose) 15 gm Q15M PRN PO DECREASED GLUCOSE; Start 12/28/18 at 05:00 Glucose (Glutose) 22.5 gm Q15M PRN PO DECREASED GLUCOSE; Start 12/28/18 at 05:00 Dextrose (D50w Syringe) 25 ml Q15M PRN IV DECREASED GLUCOSE; Start 12/28/18 at 05:00 Dextrose (D50w Syringe) 50 ml Q15M PRN IV DECREASED GLUCOSE; Start 12/28/18 at 05:00 Glucagon (Glucagen) 1 mg Q15M PRN IM DECREASED GLUCOSE; Start 12/28/18 at 05:00 Glucose (Glutose) 15 gm Q15M PRN BUCCAL DECREASED GLUCOSE; Start 12/28/18 at 05:00 Atorvastatin Calcium (Lipitor) 80 mg HS PO Last administered on 01/08/19at 20:24; Admin Dose 80 MG; Start 12/29/18 at 21:00 Phenol (Cepastat Lozenge) 1 lozenge Q1H PRN MT COUGH Last administered on 01/03/19at 13:05; Admin Dose 1 LOZENGE; Start 12/28/18 at 17:30 Escitalopram Oxalate (Lexapro) 10 mg DAILY PO Last administered on 01/09/19at 09:08; Admin Dose 10 MG; Start 12/29/18 at 09:30 Risedronate (Actonel) 35 mg Tu@AC BREAKFAST PO ; Start 12/30/18 at 07:00 Mirtazapine (Remeron) 15 mg HS PO Last administered on 01/08/19at 20:24; Admin Dose 15 MG; Start 12/29/18 at 21:00 Pantoprazole (Protonix Tab) 40 mg DAILY@06 PO Last administered on 01/09/19at 05:21; Admin Dose 40 MG; Start 12/30/18 at 06:00 Docusate Sodium (Colace) 100 mg BID PO Last administered on 01/09/19at 09:07; Admin Dose 100 MG; Start 12/29/18 at 18:30 Clopidogrel Bisulfate (plaVIX) 75 mg DAILY PO Last administered on 01/09/19 09:08; Admin Dose 75 MG; Start 01/03/19 at 09:00 Furosemide (Lasix) 40 mg DAILY IV Last administered on 01/09/19at 09:10; Admin Dose 40 MG; Start 01/03/19 at 09:00 Ranolazine (Ranexa) 1,000 mg Q12 PO Last administered on 01/09/19 09:39; Admin Dose 1,000 MG; Start 01/03/19 at 13:30 Morphine Sulfate (morphine) 1 mg Q1H PRN IV SEVERE PAIN LEVEL 7-10 Last administered on 01/09/19 03:01; Admin Dose 1 MG; Start 01/04/19 at 16:00 Polyethylene Glycol (Miralax) 17 gm BID PRN PO CONSTIPATION Last administered on 01/06/19at 13:44; Admin Dose 17 GM; Start 01/06/19 at 13:00 Carvedilol (Coreg) 25 mg BID PO Last administered on 01/09/19 09:08; Admin Dose 25 MG; Start 01/06/19 at 21:00 IV Flush (NS 10 ml) 10 ml PRN PRN IV flush; Start 01/06/19 at 18:30 Bisacodyl (Dulcolax Supp) 10 mg DAILY PRN [place] CONSTIPATION; Start 01/06/19 at 19:00 Insulin Aspart (Novolog Insulin Pen) NOVOLOG *MILD* ALGORI... Q4 SC Last administered on 01/09/19at 05:20; Admin Dose 1 UNIT; Start 01/07/19 at 05:00 Isosorbide Mononitrate (Imdur) 60 mg DAILY PO Last administered on 01/09/19at 09:09; Admin Dose 60 MG; Start 01/08/19 at 09:00 Albuterol/ Ipratropium (Duoneb) 3 ml Q4H RESP THERAPY PRN HHN SHORTNESS OF BREATH Last administered on 01/09/19at 00:19; Admin Dose 3 ML; Start 01/07/19 at 20:00 Potassium Chloride/Sodium Chloride 1,000 ml @ 50 mls/hr Q20H IV ; Start 01/09/19 at 09:00 PATTI CALLEJAS MD January 09, 2019 11:00
--- NOTE | 2019-01-09 11:26 | CONS ---
Consult Date/Type/Reason Admit Date/Time December 28, 2018 at 03:23 Initial Consult Date 01/03/19 Type of Consult Pulmonary Requesting Provider: KRYSTAL BERNARD Date/Time of Note DATE: 01/09/19 TIME: 11:25 Subjective Patient remained stable following second cardiac catheterization and stent placement. Chest x-ray still shows significant bilateral infiltrates and pulmonary edema. Objective Vital Signs Date Temp Pulse Resp B/P (MAP) Pulse Ox O2 O2 Flow FiO2 Time Delivery Rate 01/09/19 97.9 78 29 146/40 99 08:15 (75) 01/09/19 Nasal 4.0 08:00 Cannula 01/09/19 35 00:01 Intake and Output 01/08/19 01/08/19 01/09/19 1515:00 23:00 07:00 IntakeIntake Total 201.0 ml 300 ml 283.0 ml OutputOutput Total 145 ml 286 ml 185 ml BalanceBalance 56.0 ml 14 ml 98.0 ml Exam GENERAL: Elderly lady on nasal cannula O2 VITAL SIGNS: per chart NECK: Supple. No JVD or lymphadenopathy. CARDIAC EXAM: S1, S2. No added sounds or murmurs. CHEST: Diminished air entry bilaterally ABDOMEN: Soft, nontender. No guarding or rebound. EXTREMITIES: No cyanosis, clubbing or edema. NEUROLOGIC: Generalized weakness. No focal deficits. Vent Setting Fraction of Inspired Oxygen pe: 30 Results/Medications Result Diagram: 01/09/19 0430 01/09/19 0430 Results 24 hrs Laboratory Tests Test 01/08/19 13:09 01/08/19 17:45 01/08/19 20:08 01/09/19 01:14 Bedside Glucose 139 130 137 153 Test 01/09/19 04:30 01/09/19 05:16 01/09/19 08:42 White Blood Count 21.6 H Red Blood Count 2.71 L Hemoglobin 8.0 L Hematocrit 26.3 L Mean Corpuscular 97.0 Volume Mean Corpuscular 29.5 Hemoglobin Mean Corpuscular 30.4 L Hemoglobin Concent Red Cell 17.5 H Distribution Width Platelet Count 351 Mean Platelet Volume 10.0 Immature 1.300 H Granulocytes % Neutrophils % 87.0 H Lymphocytes % 6.9 L Monocytes % 3.9 Eosinophils % 0.6 Basophils % 0.3 Nucleated Red Blood 0.2 H Cells % Immature 0.280 H Granulocytes # Neutrophils # 18.8 H Lymphocytes # 1.5 Monocytes # 0.8 Eosinophils # 0.1 Basophils # 0.1 Nucleated Red Blood 0.1 H Cells # Sodium Level 146 H Potassium Level 3.5 Chloride Level 109 Carbon Dioxide Level 27 Anion Gap 10 Blood Urea Nitrogen 57 H Creatinine 2.62 H Est Glomerular Filtrat Rate mL/min Glucose Level 117 # Calcium Level 8.6 Phosphorus Level 4.7 Magnesium Level 2.3 Vancomycin Level 18.4 Trough Bedside Glucose 154 139 Medications Current Medications IV Flush (NS 3 ml) 3 ml PER PROTOCOL IV ; Start 12/28/18 at 04:30 Ondansetron HCl (Zofran Inj) 4 mg Q6H PRN IV NAUSEA/VOMITING Last administered on 01/04/19at 08:54; Admin Dose 4 MG; Start 12/28/18 at 04:30 Aspirin (Aspirin) 81 mg DAILY PO Last administered on 01/09/19at 09:07; Admin Dose 81 MG; Start 12/28/18 at 09:00 Nitroglycerin (Nitroglycerin (Sl Tab) 0.4 Mg) 1 tab Q5M PRN SL .CHEST PAIN Last administered on 01/07/19at 16:15; Admin Dose 1 TAB; Start 12/28/18 at 04:30 Diagnostic Test (Pha) (Accu-Chek) 1 ea 02 XX Last administered on 01/09/19at 01:17; Admin Dose 1 EA; Start 12/29/18 at 02:00 Miscellaneous Information 1 ea NOTE XX ; Start 12/28/18 at 05:00 Glucose (Glutose) 15 gm Q15M PRN PO DECREASED GLUCOSE; Start 12/28/18 at 05:00 Glucose (Glutose) 22.5 gm Q15M PRN PO DECREASED GLUCOSE; Start 12/28/18 at 05:00 Dextrose (D50w Syringe) 25 ml Q15M PRN IV DECREASED GLUCOSE; Start 12/28/18 at 05:00 Dextrose (D50w Syringe) 50 ml Q15M PRN IV DECREASED GLUCOSE; Start 12/28/18 at 05:00 Glucagon (Glucagen) 1 mg Q15M PRN IM DECREASED GLUCOSE; Start 12/28/18 at 05:00 Glucose (Glutose) 15 gm Q15M PRN BUCCAL DECREASED GLUCOSE; Start 12/28/18 at 05:00 Atorvastatin Calcium (Lipitor) 80 mg HS PO Last administered on 01/08/19 20:24; Admin Dose 80 MG; Start 12/29/18 at 21:00 Phenol (Cepastat Lozenge) 1 lozenge Q1H PRN MT COUGH Last administered on 01/03/19 13:05; Admin Dose 1 LOZENGE; Start 12/28/18 at 17:30 Escitalopram Oxalate (Lexapro) 10 mg DAILY PO Last administered on 01/09/19 09:08; Admin Dose 10 MG; Start 12/29/18 at 09:30 Risedronate (Actonel) 35 mg Tu@AC BREAKFAST PO ; Start 12/30/18 at 07:00 Mirtazapine (Remeron) 15 mg HS PO Last administered on 01/08/19 20:24; Admin Dose 15 MG; Start 12/29/18 at 21:00 Pantoprazole (Protonix Tab) 40 mg DAILY@06 PO Last administered on 01/09/19 05:21; Admin Dose 40 MG; Start 12/30/18 at 06:00 Docusate Sodium (Colace) 100 mg BID PO Last administered on 01/09/19 09:07; Admin Dose 100 MG; Start 12/29/18 at 18:30 Clopidogrel Bisulfate (plaVIX) 75 mg DAILY PO Last administered on 01/09/19 09:08; Admin Dose 75 MG; Start 01/03/19 at 09:00 Furosemide (Lasix) 40 mg DAILY IV Last administered on 01/09/19 09:10; Admin Dose 40 MG; Start 01/03/19 at 09:00 Ranolazine (Ranexa) 1,000 mg Q12 PO Last administered on 01/09/19 09:39; Admin Dose 1,000 MG; Start 01/03/19 at 13:30 Morphine Sulfate (morphine) 1 mg Q1H PRN IV SEVERE PAIN LEVEL 7-10 Last administered on 01/09/19 03:01; Admin Dose 1 MG; Start 01/04/19 at 16:00 Polyethylene Glycol (Miralax) 17 gm BID PRN PO CONSTIPATION Last administered on 01/06/19 13:44; Admin Dose 17 GM; Start 01/06/19 at 13:00 Carvedilol (Coreg) 25 mg BID PO Last administered on 01/09/19at 09:08; Admin Dose 25 MG; Start 01/06/19 at 21:00 IV Flush (NS 10 ml) 10 ml PRN PRN IV flush; Start 01/06/19 at 18:30 Bisacodyl (Dulcolax Supp) 10 mg DAILY PRN [place] CONSTIPATION; Start 01/06/19 at 19:00 Insulin Aspart (Novolog Insulin Pen) NOVOLOG *MILD* ALGORI... Q4 SC Last administered on 01/09/19at 05:20; Admin Dose 1 UNIT; Start 01/07/19 at 05:00 Isosorbide Mononitrate (Imdur) 60 mg DAILY PO Last administered on 01/09/19at 09:09; Admin Dose 60 MG; Start 01/08/19 at 09:00 Albuterol/ Ipratropium (Duoneb) 3 ml Q4H RESP THERAPY PRN HHN SHORTNESS OF BREATH Last administered on 01/09/19at 00:19; Admin Dose 3 ML; Start 01/07/19 at 20:00 Potassium Chloride/Sodium Chloride 1,000 ml @ 50 mls/hr Q20H IV ; Start 01/09/19 at 09:00 Assessment/Plan Hospital Course (Demo Recall) iMP: 1. s/p Acute AK--now with unstable angina 2. CHF ongoing pulmonary edema 3. Hypercapnic Resp Insufficiency 4. Severe CAD 5. Bacteremia 6. Acute and CKD 7. Possible aspiration pneumonia. Right upper lobe infiltrate 8. Encephalopathy toxic metabolic, 9. Persistent leukocytosis RECS: 1. Continue diuresis, monitor creatinine 2. Follow I/O's and renal function 3. Aspiration precautions 4. BiPAP prn, 5. Continue NTG gtt 6. Cardiac recommendations post catheterization 7. Abx as per ID 35 min cc time Check BNP consider empiric steroid trial for possible pneumonitis. TONE REID MD, [facility] January 09, 2019 11:26
--- NOTE | 2019-01-09 12:40 | RADRPT ---
Vent Rate: 93 bpm RR Interval: 648 msec LA Interval: 167 msec QRS Duration: 181 msec QT Interval: 457 msec QTC Interval: 568 msec P-R-T [place]: 118 - 51 - 241 degrees Sinus rhythm...normal P axis, V-rate 50- [address] elevation secondary to IVCD...Multiple VCG criteria Electronically Signed By: Pepe Lilly
--- NOTE | 2019-01-09 12:45 | RADRPT ---
Vent Rate: 77 bpm RR Interval: 0 msec DE Interval: 168 msec QRS Duration: 182 msec QT Interval: 502 msec QTC Interval: 568 msec P-R-T [place]: 28 - 47 - 0 degrees Normal sinus rhythm Left bundle branch block Abnormal ECG Electronically Signed By: Pepe Lilly
--- NOTE | 2019-01-09 12:47 | RADRPT ---
Vent Rate: 81 bpm RR Interval: 744 msec LA Interval: 167 msec QRS Duration: 188 msec QT Interval: 485 msec QTC Interval: 562 msec P-R-T [place]: 50 - 23 - 205 degrees Sinus rhythm...normal P axis, V-rate 50- 99 Left bundle branch block...QRSd>120, broad/notched R ST elevation secondary to IVCD...Multiple VCG criteria Electronically Signed By: Pepe Lilly
[2019-01-09] MEDS: METHYLPREDNISOLONE 40 MG INJ IV SCH ×2 (13:20→20:22)
[2019-01-09] MEDS: NS + KCL 20 MEQ 1,000 ML IV SCH (14:19)
[2019-01-09] MEDS: ATORVASTATIN 80 MG TAB PO SCH (20:22)
[2019-01-09] MEDS: MIRTAZAPINE 15 MG TAB PO SCH (20:23)
[2019-01-10] VITALS (24 sets, daily range): BP systolic 86–162; BP diastolic 35–60; PULSE 69–108; RESP 15–34
[2019-01-10] MEDS: morphine 2 MG INJ IV PRN ×3 (00:48→23:09)
[2019-01-10] MEDS: INSULIN ASPART [NOVOLOG] 3 ML PEN SC SCH ×6 (00:52→20:36)
[2019-01-10] MEDS: ACCU-CHEK XX SCH (00:52)
[2019-01-10] MEDS: NS + KCL 20 MEQ 1,000 ML IV SCH ×2 (05:00→10:39)
[2019-01-10] MEDS: PANTOPRAZOLE (EC) 40 MG TAB PO SCH (05:33)
[2019-01-10] MEDS: NITROGLYCERIN (SL) 0.4 MG TAB SL PRN (08:03)
[2019-01-10] MEDS: FUROSEMIDE 40 MG INJ IV SCH (08:20)
[2019-01-10] MEDS: ALBUTEROL/IPRATROPIUM (NEB) 3 ML AMP HHN PRN ×2 (08:25→19:45)
--- NOTE | 2019-01-10 08:47 | CONS ---
Assessment/Plan Assessment/Plan Assessment/Plan (Daily) Assessment Acute SD with new LBBB, and recurrence of chest pain Acute systolic heart failure, with elevated edp on cath yesterday Acute on chronic renal insufficiency, Cr baseline is 1.8, now 2.6, likely secondary to contrast-induced nephropathy Severe aortic regurgitation which is chronic per Dr. Archuleta (opt administrative representative), and moderate mitral regurgitation Bacteremia, with no evidence of vegetations on LOUIE, on antibiotics htn, high this am probably related to anxiety Anemia due to blood loss New rash - contrast-induced versus drug eruption Plan: 1) Current epigastric discomfort likely noncardiac 2) I stopped ranexa 3) continue DAPT Consultation Date/Type/Reason Admit Date/Time December 28, 2018 at 03:23 Initial Consult Date 01/03/19 Type of Consult Cardiology Requesting Provider: KRYSTAL BERNARD Date/Time of Note DATE: 01/10/19 TIME: 08:45 24 HR Interval Summary Free Text/Dictation reports of chest pain mulitple times, when asked seems epigastric, nitro negative, relieved with morphine partially, patient highly anxious Detailed Summary Respiratory: no complaints Cardiovascular: chest pain Gastrointestinal: no complaints Musculoskeletal: no complaints Skin: no complaints Neurologic: no complaints Exam/Review of Systems Vital Signs Vitals Vital Signs Date Temp Pulse Resp B/P (MAP) Pulse Ox O2 O2 Flow FiO2 Time Delivery Rate 01/10/19 106 28 92 Nasal 6.0 08:10 Cannula 01/10/19 133/49 06:00 (77) 01/10/19 97.9 04:00 01/09/19 35 00:01 Intake and Output 01/09/19 01/09/19 01/10/19 1515:00 23:00 07:00 IntakeIntake Total 52.5 ml 540 ml 350 ml OutputOutput Total 26 ml 192 ml 195 ml BalanceBalance 26.5 ml 348 ml 155 ml Exam Constitutional: frail Psych: anxiety Neck: supple Respiratory: clear to auscultation Cardiovascular: regular rate and rhythm Gastrointestinal: soft Musculoskeletal: nl extremities to inspection Extremities: normal pulses Labs Result Diagram: 01/10/19 04301/10/19 043 Results 24hrs Laboratory Tests Test 01/09/19 13:31 01/09/19 18:20 01/09/19 20:21 01/10/19 00:51 Bedside Glucose 125 160 182 156 Test 01/10/19 04:30 01/10/19 05:32 White Blood Count 21.4 H Red Blood Count 2.76 L Hemoglobin 8.4 L Hematocrit 27.6 L Mean Corpuscular 100.0 Volume Mean Corpuscular 30.4 Hemoglobin Mean Corpuscular 30.4 L Hemoglobin Concent Red Cell 17.7 H Distribution Width Platelet Count 342 Mean Platelet Volume 10.2 Immature 1.400 H Granulocytes % Neutrophils % 93.2 H Lymphocytes % 4.6 L Monocytes % 0.7 Eosinophils % 0.0 Basophils % 0.1 Nucleated Red Blood 0.2 H Cells % Immature 0.310 H Granulocytes # Neutrophils # 20.0 H Lymphocytes # 1.0 Monocytes # 0.1 L Eosinophils # 0.0 Basophils # 0.0 Nucleated Red Blood 0.0 Cells # Sodium Level 142 Potassium Level 4.1 Chloride Level 109 Carbon Dioxide Level 24 Anion Gap 9 Blood Urea Nitrogen 65 H Creatinine 2.89 H Est Glomerular Filtrat Rate mL/min Glucose Level 140 Calcium Level 8.2 L Phosphorus Level 6.7 #H Magnesium Level 2.4 Bedside Glucose 151 Medications Medications Current Medications IV Flush (NS 3 ml) 3 ml PER PROTOCOL IV ; Start 12/28/18 at 04:30 Ondansetron HCl (Zofran Inj) 4 mg Q6H PRN IV NAUSEA/VOMITING Last administered on 01/04/19at 08:54; Admin Dose 4 MG; Start 12/28/18 at 04:30 Aspirin (Aspirin) 81 mg DAILY PO Last administered on 01/09/19at 09:07; Admin Dose 81 MG; Start 12/28/18 at 09:00 Nitroglycerin (Nitroglycerin (Sl Tab) 0.4 Mg) 1 tab Q5M PRN SL .CHEST PAIN Last administered on 01/10/19at 08:03; Admin Dose 1 TAB; Start 12/28/18 at 04:30 Diagnostic Test (Pha) (Accu-Chek) 1 ea 02 XX Last administered on 01/10/19at 00:52; Admin Dose 1 EA; Start 12/29/18 at 02:00 Miscellaneous Information 1 ea NOTE XX ; Start 12/28/18 at 05:00 Glucose (Glutose) 15 gm Q15M PRN PO DECREASED GLUCOSE; Start 12/28/18 at 05:00 Glucose (Glutose) 22.5 gm Q15M PRN PO DECREASED GLUCOSE; Start 12/28/18 at 05:00 Dextrose (D50w Syringe) 25 ml Q15M PRN IV DECREASED GLUCOSE; Start 12/28/18 at 05:00 Dextrose (D50w Syringe) 50 ml Q15M PRN IV DECREASED GLUCOSE; Start 12/28/18 at 05:00 Glucagon (Glucagen) 1 mg Q15M PRN IM DECREASED GLUCOSE; Start 12/28/18 at 05:00 Glucose (Glutose) 15 gm Q15M PRN BUCCAL DECREASED GLUCOSE; Start 12/28/18 at 05:00 Atorvastatin Calcium (Lipitor) 80 mg HS PO Last administered on 01/09/19at 20:22; Admin Dose 80 MG; Start 12/29/18 at 21:00 Phenol (Cepastat Lozenge) 1 lozenge Q1H PRN MT COUGH Last administered on 01/03/19at 13:05; Admin Dose 1 LOZENGE; Start 12/28/18 at 17:30 Escitalopram Oxalate (Lexapro) 10 mg DAILY PO Last administered on 01/09/19at 09:08; Admin Dose 10 MG; Start 12/29/18 at 09:30 Risedronate (Actonel) 35 mg Tu@AC BREAKFAST PO ; Start 12/30/18 at 07:00 Mirtazapine (Remeron) 15 mg HS PO Last administered on 01/09/19at 20:23; Admin Dose 15 MG; Start 12/29/18 at 21:00 Pantoprazole (Protonix Tab) 40 mg DAILY@06 PO Last administered on 01/10/19at 05:33; Admin Dose 40 MG; Start 12/30/18 at 06:00 Docusate Sodium (Colace) 100 mg BID PO Last administered on 01/09/19 20:23; Admin Dose 100 MG; Start 12/29/18 at 18:30 Clopidogrel Bisulfate (plaVIX) 75 mg DAILY PO Last administered on 01/09/19at 09:08; Admin Dose 75 MG; Start 01/03/19 at 09:00 Furosemide (Lasix) 40 mg DAILY IV Last administered on 01/10/19at 08:20; Admin Dose 40 MG; Start 01/03/19 at 09:00 Ranolazine (Ranexa) 1,000 mg Q12 PO Last administered on 01/09/19 20:22; Admin Dose 1,000 MG; Start 01/03/19 at 13:30 Morphine Sulfate (morphine) 1 mg Q1H PRN IV SEVERE PAIN LEVEL 7-10 Last administered on 01/10/19 07:58; Admin Dose 1 MG; Start 01/04/19 at 16:00 Polyethylene Glycol (Miralax) 17 gm BID PRN PO CONSTIPATION Last administered on 01/06/19 13:44; Admin Dose 17 GM; Start 01/06/19 at 13:00 Carvedilol (Coreg) 25 mg BID PO Last administered on 01/09/19 20:23; Admin Dose 25 MG; Start 01/06/19 at 21:00 IV Flush (NS 10 ml) 10 ml PRN PRN IV flush; Start 01/06/19 at 18:30 Bisacodyl (Dulcolax Supp) 10 mg DAILY PRN MS CONSTIPATION; Start 01/06/19 at 19:00 Insulin Aspart (Novolog Insulin Pen) NOVOLOG *MILD* ALGORI... Q4 SC Last administered on 01/10/19 05:36; Admin Dose 1 UNIT; Start 01/07/19 at 05:00 Isosorbide Mononitrate (Imdur) 60 mg DAILY PO Last administered on 01/09/19 09:09; Admin Dose 60 MG; Start 01/08/19 at 09:00 Albuterol/ Ipratropium (Duoneb) 3 ml Q4H RESP THERAPY PRN HHN SHORTNESS OF BREATH Last administered on 01/10/19 08:25; Admin Dose 3 ML; Start 01/07/19 at 20:00 Potassium Chloride/Sodium Chloride 1,000 ml @ 50 mls/hr Q20H IV Last administered on 01/09/19 14:19; Admin Dose 50 MLS/HR; Start 01/09/19 at 09:00 Methylprednisolone Sodium Succinate (Solu-Medrol) 40 mg Q12 IV Last administered on 01/09/19 20:22; Admin Dose 40 MG; Start 01/09/19 at 11:30 JENNYFER VALLADARES MD January 10, 2019 08:47
[2019-01-10] MEDS ORDERED: NA BICARBONATE 8.4% 50 ML SYG IV STA (09:09)
[2019-01-10] MEDS: METHYLPREDNISOLONE 40 MG INJ IV SCH (09:25)
[2019-01-10] MEDS: DOCUSATE SODIUM 100 MG CAP PO SCH ×2 (09:33→20:33)
[2019-01-10] MEDS: ESCITALOPRAM 10 MG TAB PO SCH (09:33)
[2019-01-10] MEDS: ASPIRIN 81 MG TAB PO SCH (09:33)
[2019-01-10] MEDS: ISOSORBIDE MONONITRATE(SR)60 MG TAB PO SCH (09:34)
[2019-01-10] MEDS: CLOPIDOGREL 75 MG TAB PO SCH (09:34)
--- NOTE | 2019-01-10 09:50 | CONS ---
Consult Date/Type/Reason Admit Date/Time December 28, 2018 at 03:23 Initial Consult Date 01/03/19 Type of Consult Pulmonary Requesting Provider: KRYSTAL BERNARD Date/Time of Note DATE: 01/10/19 TIME: 09:47 Subjective Patient had more labored breathing this morning. Requiring bilevel and Ventimask now stable on nasal cannula. Decreased urine output with metabolic acidosis noted. Chest x-ray demonstrates right greater than left infiltrate and/or pulmonary edema. Objective Vital Signs Date Temp Pulse Resp B/P (MAP) Pulse Ox O2 O2 Flow FiO2 Time Delivery Rate 01/10/19 106 28 92 Nasal 6.0 08:10 Cannula 01/10/19 133/49 06:00 (77) 01/10/19 97.9 04:00 01/09/19 35 00:01 Intake and Output 01/09/19 01/09/19 01/10/19 1414:59 22:59 06:59 IntakeIntake Total 21.0 ml 527.5 ml 400 ml OutputOutput Total 26 ml 172 ml 215 ml BalanceBalance -5.0 ml 355.5 ml 185 ml Exam GENERAL: Elderly lady on nasal cannula O2 VITAL SIGNS: per chart NECK: Supple. No JVD or lymphadenopathy. CARDIAC EXAM: S1, S2. No added sounds or murmurs. CHEST: Diminished air entry bilaterally ABDOMEN: Soft, nontender. No guarding or rebound. EXTREMITIES: No cyanosis, clubbing or edema. NEUROLOGIC: Generalized weakness. No focal deficits. Vent Setting Fraction of Inspired Oxygen pe: 30 Results/Medications Result Diagram: 01/10/19 0430 01/10/19 0430 Results 24 hrs Laboratory Tests Test 01/09/19 13:31 01/09/19 18:20 01/09/19 20:21 01/10/19 00:51 Bedside Glucose 125 160 182 156 Test 01/10/19 04:30 01/10/19 05:32 01/10/19 07:00 01/10/19 08:59 White Blood Count 21.4 H Red Blood Count 2.76 L Hemoglobin 8.4 L Hematocrit 27.6 L Mean Corpuscular 100.0 Volume Mean Corpuscular 30.4 Hemoglobin Mean Corpuscular 30.4 L Hemoglobin Concen t Red Cell 17.7 H Distribution Width Platelet Count 342 Mean Platelet 10.2 Volume Immature 1.400 H Granulocytes % Neutrophils % 93.2 H Lymphocytes % 4.6 L Monocytes % 0.7 Eosinophils % 0.0 Basophils % 0.1 Nucleated Red 0.2 H Blood Cells % Immature 0.310 H Granulocytes # Neutrophils # 20.0 H Lymphocytes # 1.0 Monocytes # 0.1 L Eosinophils # 0.0 Basophils # 0.0 Nucleated Red 0.0 Blood Cells # Sodium Level 142 Potassium Level 4.1 Chloride Level 109 Carbon Dioxide 24 Level Anion Gap 9 Blood Urea 65 H Nitrogen Creatinine 2.89 H Est Glomerular Filtrat Rate mL/min Glucose Level 140 Calcium Level 8.2 L Phosphorus Level 6.7 #H Magnesium Level 2.4 Bedside Glucose 151 236 H Blood Gas Blood arterial Specimen Source Arterial Blood 01/10/2019 8:48:5 Date Drawn 1 AM Arterial Blood pH 7.154 *L (Temp corrected) Arterial Blood 49.2 H pCO2 (Temp correct) Arterial Blood 76.2 L pO2 (Temp corrected) Arterial Blood 16.9 L HCO3 Arterial Blood -11.5 L Base Excess Arterial Blood 89.5 L Oxygen Saturation Francis Test N/A Arterial Blood LB Gas Puncture Site Arterial 0.3 Blood Carboxyhemo globin Arterial Blood 0.3 Methemoglobin Blood Gas A-a O2 304.7 H Differential Oxyhemoglobin 89.0 L Percent Blood Gas 37.0 Temperature Blood Gas MASK - SIMPLE Modality FiO2 61.0 Blood Gas ABILIO ANTHONY Critical Value Read Back Blood Gas [place] Notified Whom Blood Gas 01/10/2019 8:59:4 Notified Time 1 AM Medications Current Medications IV Flush (NS 3 ml) 3 ml PER PROTOCOL IV ; Start 12/28/18 at 04:30 Ondansetron HCl (Zofran Inj) 4 mg Q6H PRN IV NAUSEA/VOMITING Last administered on 01/04/19 08:54; Admin Dose 4 MG; Start 12/28/18 at 04:30 Aspirin (Aspirin) 81 mg DAILY PO Last administered on 01/10/19at 09:33; Admin Dose 81 MG; Start 12/28/18 at 09:00 Nitroglycerin (Nitroglycerin (Sl Tab) 0.4 Mg) 1 tab Q5M PRN SL .CHEST PAIN Last administered on 01/10/19at 08:03; Admin Dose 1 TAB; Start 12/28/18 at 04:30 Diagnostic Test (Pha) (Accu-Chek) 1 ea 02 XX Last administered on 01/10/19at 00:52; Admin Dose 1 EA; Start 12/29/18 at 02:00 Miscellaneous Information 1 ea NOTE XX ; Start 12/28/18 at 05:00 Glucose (Glutose) 15 gm Q15M PRN PO DECREASED GLUCOSE; Start 12/28/18 at 05:00 Glucose (Glutose) 22.5 gm Q15M PRN PO DECREASED GLUCOSE; Start 12/28/18 at 05:00 Dextrose (D50w Syringe) 25 ml Q15M PRN IV DECREASED GLUCOSE; Start 12/28/18 at 05:00 Dextrose (D50w Syringe) 50 ml Q15M PRN IV DECREASED GLUCOSE; Start 12/28/18 at 05:00 Glucagon (Glucagen) 1 mg Q15M PRN IM DECREASED GLUCOSE; Start 12/28/18 at 05:00 Glucose (Glutose) 15 gm Q15M PRN BUCCAL DECREASED GLUCOSE; Start 12/28/18 at 05:00 Atorvastatin Calcium (Lipitor) 80 mg HS PO Last administered on 01/09/19at 20:22; Admin Dose 80 MG; Start 12/29/18 at 21:00 Phenol (Cepastat Lozenge) 1 lozenge Q1H PRN MT COUGH Last administered on 01/03/19at 13:05; Admin Dose 1 LOZENGE; Start 12/28/18 at 17:30 Escitalopram Oxalate (Lexapro) 10 mg DAILY PO Last administered on 01/10/19at 09:33; Admin Dose 10 MG; Start 12/29/18 at 09:30 Risedronate (Actonel) 35 mg Tu@AC BREAKFAST PO ; Start 12/30/18 at 07:00 Mirtazapine (Remeron) 15 mg HS PO Last administered on 01/09/19at 20:23; Admin Dose 15 MG; Start 12/29/18 at 21:00 Pantoprazole (Protonix Tab) 40 mg DAILY@06 PO Last administered on 01/10/19at 05:33; Admin Dose 40 MG; Start 12/30/18 at 06:00 Docusate Sodium (Colace) 100 mg BID PO Last administered on 01/10/19at 09:33; Admin Dose 100 MG; Start 12/29/18 at 18:30 Clopidogrel Bisulfate (plaVIX) 75 mg DAILY PO Last administered on 01/10/19 09:34; Admin Dose 75 MG; Start 01/03/19 at 09:00 Furosemide (Lasix) 40 mg DAILY IV Last administered on 01/10/19 08:20; Admin Dose 40 MG; Start 01/03/19 at 09:00 Morphine Sulfate (morphine) 1 mg Q1H PRN IV SEVERE PAIN LEVEL 7-10 Last administered on 01/10/19 07:58; Admin Dose 1 MG; Start 01/04/19 at 16:00 Polyethylene Glycol (Miralax) 17 gm BID PRN PO CONSTIPATION Last administered on 01/06/19 13:44; Admin Dose 17 GM; Start 01/06/19 at 13:00 Carvedilol (Coreg) 25 mg BID PO Last administered on 01/10/19 09:33; Admin Dose 25 MG; Start 01/06/19 at 21:00 IV Flush (NS 10 ml) 10 ml PRN PRN IV flush; Start 01/06/19 at 18:30 Bisacodyl (Dulcolax Supp) 10 mg DAILY PRN [place] CONSTIPATION; Start 01/06/19 at 19:00 Insulin Aspart (Novolog Insulin Pen) NOVOLOG *MILD* ALGORI... Q4 SC Last administered on 01/10/19 05:36; Admin Dose 1 UNIT; Start 01/07/19 at 05:00 Isosorbide Mononitrate (Imdur) 60 mg DAILY PO Last administered on 01/10/19 09:34; Admin Dose 60 MG; Start 01/08/19 at 09:00 Albuterol/ Ipratropium (Duoneb) 3 ml Q4H RESP THERAPY PRN HHN SHORTNESS OF BREATH Last administered on 01/10/19 08:25; Admin Dose 3 ML; Start 01/07/19 at 20:00 Potassium Chloride/Sodium Chloride 1,000 ml @ 50 mls/hr Q20H IV Last administered on 01/09/19 14:19; Admin Dose 50 MLS/HR; Start 01/09/19 at 09:00 Methylprednisolone Sodium Succinate (Solu-Medrol) 40 mg Q12 IV Last administered on 01/10/19 09:25; Admin Dose 40 MG; Start 01/09/19 at 11:30 Assessment/Plan Hospital Course (Demo Recall) iMP: 1. s/p Acute NC--now with unstable angina 2. CHF ongoing pulmonary edema 3. Hypercapnic Resp Insufficiency 4. Severe CAD 5. Bacteremia 6. Acute and CKD, likely component of contrast nephropathy. 7. Possible aspiration pneumonia. Right upper lobe infiltrate 8. Encephalopathy toxic metabolic, 9. Persistent leukocytosis RECS: 1. Replace bicarbonate given metabolic acidosis. Borderline respiratory status may require intubation. May require intravenous bicarbonate drip. Await renal recommendations. 2. Follow I/O's and renal function 3. Aspiration precautions 4. BiPAP prn, 5. Continue NTG gtt as needed. 6. Cardiac recommendations post catheterization 7. Abx as per ID 35 min cc time Prognosis remains guarded. TONE REID MD, FCCP January 10, 2019 09:50
[2019-01-10] MEDS ORDERED: ALBUMIN HUMAN 25% 100 ML IV ONE (11:00)
[2019-01-10] MEDS ORDERED: SODIUM BICARBONATE (IV ADD) 100 MEQ in DEXTROSE 5% 1,000 ML IV SCH (11:00)
[2019-01-10] MEDS ORDERED: FUROSEMIDE 40 MG INJ IV ONE (11:00)
[2019-01-10] MEDS ORDERED: SODIUM BICARBONATE (IV ADD) 100 MEQ in DEXTROSE 5% 900 ML IV SCH (13:00)
--- NOTE | 2019-01-10 14:27 | PN ---
Date/Time of Note Date/Time of Note DATE: 01/10/19 TIME: 14:22 Assessment/Plan VTE Prophylaxis Risk score (from Ns)>0 risk: 10 Pharmacological prophylaxis: NA/contraindicated Pharm contraindication: renal impairment Assessment/Plan Hospital Course 83 yo [place]ian-speaking woman with history of dementia, hypertension, dyslipidemia, severe MR and aortic stenosis, arrhythmia who presents with ACS and multi-vessel coronary artery disease. #Acute ME #CAD - STEMI with LBBB - patient had cardiac cath on 12/28, found with: Severe 2 vessel CAD, LAD and RCA, LAD is culprit with francine 2 flow, and cardiomyopathy with LVEF 35%. Again patient also with severe aortic regurgitation and at least moderate mitral regurgitation. - Continue, Lipitor, beta-geovanny, statin, Plavix and Imdur - Now s/p PCI to LAD (01/04) and RCA (01/08) - She does also have severe AI, may need TAVR in the future. #Acute CHF exacerbation - likely due to acute ischemic CAD/STEMI - currently on IV lasix -Status post nitro gtt #Bacteremia: 2 out of 2 bottles positive for coagulase-negative staph - Finished 7 days of zosyn+vanco. -Short course of antibiotics given due to drug rash -Repeat blood cultures are negative #Rash - Erythematous, macular rash on lower abdomen and part of chest noted 01/07 - May be related to transfusion, or drug reaction. - Got decadon, benadryl, pepcid without significant improvement. - Stopped zosyn and vanco, this may have been a delayed drug reaction. #WILLIAM: Patient has adequate urine output. -Monitor, follow-up recommendations from renal consult -For now continue IV Lasix once a day, monitor urine output and BUN/cr eatinine levels -No CRISTINO or ARB at this time #Acute on chronic encephalopathy -Patient with baseline dementia but mentation has worsened likely secondary to delirium and steroids -DC steroids, monitor GI: PPI Result Diagram: 01/10/1942901/10/19 043 Results 24hrs Laboratory Tests Test 01/09/19 18:20 01/09/19 20:21 01/10/19 00:51 01/10/19 04:30 Bedside Glucose 160 182 156 White Blood Count 21.4 H Red Blood Count 2.76 L Hemoglobin 8.4 L Hematocrit 27.6 L Mean Corpuscular 100.0 Volume Mean Corpuscular 30.4 Hemoglobin Mean Corpuscular 30.4 L Hemoglobin Concen t Red Cell 17.7 H Distribution Width Platelet Count 342 Mean Platelet 10.2 Volume Immature 1.400 H Granulocytes % Neutrophils % 93.2 H Lymphocytes % 4.6 L Monocytes % 0.7 Eosinophils % 0.0 Basophils % 0.1 Nucleated Red 0.2 H Blood Cells % Immature 0.310 H Granulocytes # Neutrophils # 20.0 H Lymphocytes # 1.0 Monocytes # 0.1 L Eosinophils # 0.0 Basophils # 0.0 Nucleated Red 0.0 Blood Cells # Sodium Level 142 Potassium Level 4.1 Chloride Level 109 Carbon Dioxide 24 Level Anion Gap 9 Blood Urea 65 H Nitrogen Creatinine 2.89 H Est Glomerular Filtrat Rate mL/min Glucose Level 140 Calcium Level 8.2 L Phosphorus Level 6.7 #H Magnesium Level 2.4 Test 01/10/19 05:32 01/10/19 07:00 01/10/19 08:59 01/10/19 12:47 Bedside Glucose 151 236 H 193 Blood Gas Blood arterial Specimen Source Arterial Blood 01/10/2019 8:48:5 Date Drawn 1 AM Arterial Blood pH 7.154 *L (Temp corrected) Arterial Blood 49.2 H pCO2 (Temp correct) Arterial Blood 76.2 L pO2 (Temp corrected) Arterial Blood 16.9 L HCO3 Arterial Blood -11.5 L Base Excess Arterial Blood 89.5 L Oxygen Saturation Francis Test N/A Arterial Blood LB Gas Puncture Site Arterial 0.3 Blood Carboxyhemo globin Arterial Blood 0.3 Methemoglobin Blood Gas A-a O2 304.7 H Differential Oxyhemoglobin 89.0 L Percent Blood Gas 37.0 Temperature Blood Gas MASK - SIMPLE Modality FiO2 61.0 Blood Gas ABILIO ANTHONY Critical Value Read Back Blood Gas [place] Notified Whom Blood Gas 01/10/2019 8:59:4 Notified Time 1 AM Subjective 24 Hr Interval Summary Constitutional: disoriented Exam/Review of Systems Exam Vitals Vital Signs Date Temp Pulse Resp B/P (MAP) Pulse Ox O2 O2 Flow FiO2 Time Delivery Rate 01/10/19 85 19 94/42 (59) 97 Nasal 6.0 14:00 Cannula 01/10/19 97.9 12:00 01/09/19 35 00:01 Intake and Output 01/09/19 01/09/19 01/10/19 1515:00 23:00 07:00 IntakeIntake Total 52.5 ml 540 ml 400 ml OutputOutput Total 26 ml 192 ml 195 ml BalanceBalance 26.5 ml 348 ml 205 ml Psych: confusion Respiratory: clear to auscultation Cardiovascular: regular rate and rhythm Gastrointestinal: soft; No distended Musculoskeletal: nl extremities to inspection Results Results 24hrs Laboratory Tests Test 01/09/19 18:20 01/09/19 20:21 01/10/19 00:51 01/10/19 04:30 Bedside Glucose 160 182 156 White Blood Count 21.4 H Red Blood Count 2.76 L Hemoglobin 8.4 L Hematocrit 27.6 L Mean Corpuscular 100.0 Volume Mean Corpuscular 30.4 Hemoglobin Mean Corpuscular 30.4 L Hemoglobin Concen t Red Cell 17.7 H Distribution Width Platelet Count 342 Mean Platelet 10.2 Volume Immature 1.400 H Granulocytes % Neutrophils % 93.2 H Lymphocytes % 4.6 L Monocytes % 0.7 Eosinophils % 0.0 Basophils % 0.1 Nucleated Red 0.2 H Blood Cells % Immature 0.310 H Granulocytes # Neutrophils # 20.0 H Lymphocytes # 1.0 Monocytes # 0.1 L Eosinophils # 0.0 Basophils # 0.0 Nucleated Red 0.0 Blood Cells # Sodium Level 142 Potassium Level 4.1 Chloride Level 109 Carbon Dioxide 24 Level Anion Gap 9 Blood Urea 65 H Nitrogen Creatinine 2.89 H Est Glomerular Filtrat Rate mL/min Glucose Level 140 Calcium Level 8.2 L Phosphorus Level 6.7 #H Magnesium Level 2.4 Test 01/10/19 05:32 01/10/19 07:00 01/10/19 08:59 01/10/19 12:47 Bedside Glucose 151 236 H 193 Blood Gas Blood arterial Specimen Source Arterial Blood 01/10/2019 8:48:5 Date Drawn 1 AM Arterial Blood pH 7.154 *L (Temp corrected) Arterial Blood 49.2 H pCO2 (Temp correct) Arterial Blood 76.2 L pO2 (Temp corrected) Arterial Blood 16.9 L HCO3 Arterial Blood -11.5 L Base Excess Arterial Blood 89.5 L Oxygen Saturation Francis Test N/A Arterial Blood LB Gas Puncture Site Arterial 0.3 Blood Carboxyhemo globin Arterial Blood 0.3 Methemoglobin Blood Gas A-a O2 304.7 H Differential Oxyhemoglobin 89.0 L Percent Blood Gas 37.0 Temperature Blood Gas MASK - SIMPLE Modality FiO2 61.0 Blood Gas ABILIO ANTHONY Critical Value Read Back Blood Gas [place] Notified Whom Blood Gas 01/10/2019 8:59:4 Notified Time 1 AM Medications Medication Current Medications IV Flush (NS 3 ml) 3 ml PER PROTOCOL IV ; Start 12/28/18 at 04:30 Ondansetron HCl (Zofran Inj) 4 mg Q6H PRN IV NAUSEA/VOMITING Last administered on 01/04/19at 08:54; Admin Dose 4 MG; Start 12/28/18 at 04:30 Aspirin (Aspirin) 81 mg DAILY PO Last administered on 01/10/19at 09:33; Admin Dose 81 MG; Start 12/28/18 at 09:00 Nitroglycerin (Nitroglycerin (Sl Tab) 0.4 Mg) 1 tab Q5M PRN SL .CHEST PAIN Last administered on 01/10/19at 08:03; Admin Dose 1 TAB; Start 12/28/18 at 04:30 Diagnostic Test (Pha) (Accu-Chek) 1 ea 02 XX Last administered on 01/10/19at 00:52; Admin Dose 1 EA; Start 12/29/18 at 02:00 Miscellaneous Information 1 ea NOTE XX ; Start 12/28/18 at 05:00 Glucose (Glutose) 15 gm Q15M PRN PO DECREASED GLUCOSE; Start 12/28/18 at 05:00 Glucose (Glutose) 22.5 gm Q15M PRN PO DECREASED GLUCOSE; Start 12/28/18 at 05:00 Dextrose (D50w Syringe) 25 ml Q15M PRN IV DECREASED GLUCOSE; Start 12/28/18 at 05:00 Dextrose (D50w Syringe) 50 ml Q15M PRN IV DECREASED GLUCOSE; Start 12/28/18 at 05:00 Glucagon (Glucagen) 1 mg Q15M PRN IM DECREASED GLUCOSE; Start 12/28/18 at 05:00 Glucose (Glutose) 15 gm Q15M PRN BUCCAL DECREASED GLUCOSE; Start 12/28/18 at 05:00 Atorvastatin Calcium (Lipitor) 80 mg HS PO Last administered on 01/09/19at 20:22; Admin Dose 80 MG; Start 12/29/18 at 21:00 Phenol (Cepastat Lozenge) 1 lozenge Q1H PRN MT COUGH Last administered on 01/03/19 13:05; Admin Dose 1 LOZENGE; Start 12/28/18 at 17:30 Escitalopram Oxalate (Lexapro) 10 mg DAILY PO Last administered on 01/10/19 09:33; Admin Dose 10 MG; Start 12/29/18 at 09:30 Risedronate (Actonel) 35 mg Tu@AC BREAKFAST PO ; Start 12/30/18 at 07:00 Mirtazapine (Remeron) 15 mg HS PO Last administered on 01/09/19 20:23; Admin Dose 15 MG; Start 12/29/18 at 21:00 Pantoprazole (Protonix Tab) 40 mg DAILY@06 PO Last administered on 01/10/19 05:33; Admin Dose 40 MG; Start 12/30/18 at 06:00 Docusate Sodium (Colace) 100 mg BID PO Last administered on 01/10/19 09:33; Admin Dose 100 MG; Start 12/29/18 at 18:30 Clopidogrel Bisulfate (plaVIX) 75 mg DAILY PO Last administered on 01/10/19 09:34; Admin Dose 75 MG; Start 01/03/19 at 09:00 Furosemide (Lasix) 40 mg DAILY IV Last administered on 01/10/19 08:20; Admin Dose 40 MG; Start 01/03/19 at 09:00 Morphine Sulfate (morphine) 1 mg Q1H PRN IV SEVERE PAIN LEVEL 7-10 Last administered on 01/10/19 07:58; Admin Dose 1 MG; Start 01/04/19 at 16:00 Polyethylene Glycol (Miralax) 17 gm BID PRN PO CONSTIPATION Last administered on 01/06/19 13:44; Admin Dose 17 GM; Start 01/06/19 at 13:00 Carvedilol (Coreg) 25 mg BID PO Last administered on 01/10/19 09:33; Admin Dose 25 MG; Start 01/06/19 at 21:00 IV Flush (NS 10 ml) 10 ml PRN PRN IV flush; Start 01/06/19 at 18:30 Bisacodyl (Dulcolax Supp) 10 mg DAILY PRN SC CONSTIPATION; Start 01/06/19 at 19:00 Insulin Aspart (Novolog Insulin Pen) NOVOLOG *MILD* ALGORI... Q4 SC Last administered on 01/10/19 12:53; Admin Dose 2 UNIT; Start 01/07/19 at 05:00 Isosorbide Mononitrate (Imdur) 60 mg DAILY PO Last administered on 01/10/19 09:34; Admin Dose 60 MG; Start 01/08/19 at 09:00 Albuterol/ Ipratropium (Duoneb) 3 ml Q4H RESP THERAPY PRN HHN SHORTNESS OF BREATH Last administered on 01/10/19 08:25; Admin Dose 3 ML; Start 01/07/19 at 20:00 Methylprednisolone Sodium Succinate (Solu-Medrol) 40 mg Q12 IV Last administered on 01/10/19 09:25; Admin Dose 40 MG; Start 01/09/19 at 11:30 Sodium Bicarbonate 100 meq/Dextrose 1,000 ml @ 80 mls/hr [id number] IV Last administered on 01/10/19 13:05; Admin Dose 80 MLS/HR; Start 01/10/19 at 13:00 DELORIS EVANGELISTA January 10, 2019 14:27
--- NOTE | 2019-01-10 16:05 | CONS ---
Assessment/Plan Assessment/Plan Assessment/Plan (Daily) 1. Acute kidney injury on CKD III 2/2 Hemodynamics from CHF + NSTEMI 2. Hypokalemia - resolved 3. Hypernatremia - reslved 4. acute NSTEMI s/p LHC showed multivessel obstructive CAD - s/p Successful PTCA and stenting of proximal left anterior descending artery using a 3 x 20 mm Synergy drug-eluting stent on 01/04/19- s/p LHC with proximal RCA stenting on 01/08/19 5. CAD mulitivessels obstructive 6. Anemia of Chronic disease s/p 2 U PRBC on 01/07/19 Plan: BUN/Cr trended to to 65/2.89, Na 142, off IVF now s/p Successful PTCA and stenting of proximal left anterior descending artery using a 3 x 20 mm Synergy drug-eluting stent on 01/04/19- s/p LHC with proximal RCA stenting on 01/08/19 IV abx zosyn, renally dosed for bacteremia, renally dose all abx and monitor electrolytes IV lasix 40mg IV daily, s/p LOUIE on 12/30/18 showed severe AI and no vegetations, will continue to follow up Patient seen in collaboration with Dr Jackman. dw staff Consultation Date/Type/Reason Admit Date/Time December 28, 2018 at 03:23 Initial Consult Date 01/03/19 Type of Consult NEPHROLOGY Reason for Consultation Acute kidney injury on CKD III Requesting Provider: KRYSTAL BERNARD Date/Time of Note DATE: 01/10/19 TIME: 15:59 24 HR Interval Summary Free Text/Dictation nad BUN/ Cr- trended upto 65/2.89; moitor renal functions on bicarb drip dw staff Constitutional: requiring O2 Detailed Summary Respiratory: shortness of breath (on exertion) Endocrine: no complaints Lymphatic: no complaints Exam/Review of Systems Exam Vitals Vital Signs Date Temp Pulse Resp B/P (MAP) Pulse Ox O2 O2 Flow FiO2 Time Delivery Rate 01/10/19 85 19 94/42 (59) 97 Nasal 6.0 14:00 Cannula 01/10/19 97.9 12:00 01/09/19 35 00:01 Intake and Output 01/09/19 01/09/19 01/10/19 1515:00 23:00 07:00 IntakeIntake Total 52.5 ml 540 ml 400 ml OutputOutput Total 26 ml 192 ml 195 ml BalanceBalance 26.5 ml 348 ml 205 ml Constitutional: alert, well developed Psych: nl mood/affect Head: atraumatic Eyes: nl conjunctiva ENMT: nl external ears & nose Neck: non-tender, other (ET tbe intact) Respiratory: clear to auscultation Cardiovascular: nl pulses, other (s1s2) Gastrointestinal: soft Musculoskeletal: muscle weakness Extremities: edema Neurological: unresponsive Results Result Diagram: 01/10/19 0430 01/10/19 0430 Results 24hrs Laboratory Tests Test 01/09/19 18:20 01/09/19 20:21 01/10/19 00:51 01/10/19 04:30 Bedside Glucose 160 182 156 White Blood 21.4 H Count Red Blood Count 2.76 L Hemoglobin 8.4 L Hematocrit 27.6 L Mean Corpuscular 100.0 Volume Mean Corpuscular 30.4 Hemoglobin Mean Corpuscular 30.4 L Hemoglobin Devika nt Red Cell 17.7 H Distribution Width Platelet Count 342 Mean Platelet 10.2 Volume Immature 1.400 H Granulocytes % Neutrophils % 93.2 H Lymphocytes % 4.6 L Monocytes % 0.7 Eosinophils % 0.0 Basophils % 0.1 Nucleated Red 0.2 H Blood Cells % Immature 0.310 H Granulocytes # Neutrophils # 20.0 H Lymphocytes # 1.0 Monocytes # 0.1 L Eosinophils # 0.0 Basophils # 0.0 Nucleated Red 0.0 Blood Cells # Sodium Level 142 Potassium Level 4.1 Chloride Level 109 Carbon Dioxide 24 Level Anion Gap 9 Blood Urea 65 H Nitrogen Creatinine 2.89 H Est Glomerular Filtrat Rate mL/min Glucose Level 140 Calcium Level 8.2 L Phosphorus Level 6.7 #H Magnesium Level 2.4 Test 01/10/19 05:32 01/10/19 07:00 01/10/19 08:59 01/10/19 12:47 Bedside Glucose 151 236 H 193 Blood Gas Blood arterial Specimen Source Arterial Blood 01/10/2019 8:48: Date Drawn 51 AM Arterial Blood 7.154 *L pH (Temp corrected) Arterial Blood 49.2 H pCO2 (Temp correct) Arterial Blood 76.2 L pO2 (Temp corrected) Arterial Blood 16.9 L HCO3 Arterial Blood -11.5 L Base Excess Arterial Blood 89.5 L Oxygen Saturatio n Francis Test N/A Arterial Blood LB Gas Puncture Site Arterial 0.3 Blood Carboxyhem oglobin Arterial Blood 0.3 Methemoglobin Blood Gas A-a O2 304.7 H Differential Oxyhemoglobin 89.0 L Percent Blood Gas 37.0 Temperature Blood Gas MASK - SIMPLE Modality FiO2 61.0 Blood Gas IBARTOLOME, R Critical Value N Read Back Blood Gas KS Notified Whom Blood Gas 01/10/2019 8:59: Notified Time 41 AM Test 01/10/19 13:00 Blood Gas Blood arterial Specimen Source Arterial Blood 01/10/2019 1:45: Date Drawn 00 PM Arterial Blood 7.313 L pH (Temp corrected) Arterial Blood 46.3 H pCO2 (Temp correct) Arterial Blood 66.9 L pO2 (Temp corrected) Arterial Blood 22.9 HCO3 Arterial Blood -3.5 L Base Excess Francis Test ACCEPTAB Arterial Blood Right Radial Gas Puncture Site Blood Gas A-a O2 157.8 H Differential Blood Gas 37.0 Temperature Blood Gas Actual 18 Respiration Rate Blood Gas NASAL CANNULA Modality FiO2 39.0 Blood Gas Jonna MAYA Notified Whom Blood Gas 01/10/2019 2:07: Notified Time 00 PM Medications Medication Current Medications IV Flush (NS 3 ml) 3 ml PER PROTOCOL IV ; Start 12/28/18 at 04:30 Ondansetron HCl (Zofran Inj) 4 mg Q6H PRN IV NAUSEA/VOMITING Last administered on 01/04/19 08:54; Admin Dose 4 MG; Start 12/28/18 at 04:30 Aspirin (Aspirin) 81 mg DAILY PO Last administered on 01/10/19at 09:33; Admin Dose 81 MG; Start 12/28/18 at 09:00 Nitroglycerin (Nitroglycerin (Sl Tab) 0.4 Mg) 1 tab Q5M PRN SL .CHEST PAIN Last administered on 01/10/19 08:03; Admin Dose 1 TAB; Start 12/28/18 at 04:30 Diagnostic Test (Pha) (Accu-Chek) 1 ea 02 XX Last administered on 01/10/19at 00:52; Admin Dose 1 EA; Start 12/29/18 at 02:00 Miscellaneous Information 1 ea NOTE XX ; Start 12/28/18 at 05:00 Glucose (Glutose) 15 gm Q15M PRN PO DECREASED GLUCOSE; Start 12/28/18 at 05:00 Glucose (Glutose) 22.5 gm Q15M PRN PO DECREASED GLUCOSE; Start 12/28/18 at 05:00 Dextrose (D50w Syringe) 25 ml Q15M PRN IV DECREASED GLUCOSE; Start 12/28/18 at 05:00 Dextrose (D50w Syringe) 50 ml Q15M PRN IV DECREASED GLUCOSE; Start 12/28/18 at 05:00 Glucagon (Glucagen) 1 mg Q15M PRN IM DECREASED GLUCOSE; Start 12/28/18 at 05:00 Glucose (Glutose) 15 gm Q15M PRN BUCCAL DECREASED GLUCOSE; Start 12/28/18 at 05:00 Atorvastatin Calcium (Lipitor) 80 mg HS PO Last administered on 01/09/19at 20:22; Admin Dose 80 MG; Start 12/29/18 at 21:00 Phenol (Cepastat Lozenge) 1 lozenge Q1H PRN MT COUGH Last administered on 01/03/19at 13:05; Admin Dose 1 LOZENGE; Start 12/28/18 at 17:30 Escitalopram Oxalate (Lexapro) 10 mg DAILY PO Last administered on 01/10/19at 09:33; Admin Dose 10 MG; Start 12/29/18 at 09:30 Risedronate (Actonel) 35 mg Tu@AC BREAKFAST PO ; Start 12/30/18 at 07:00 Mirtazapine (Remeron) 15 mg HS PO Last administered on 01/09/19at 20:23; Admin Dose 15 MG; Start 12/29/18 at 21:00 Pantoprazole (Protonix Tab) 40 mg DAILY@06 PO Last administered on 01/10/19at 05:33; Admin Dose 40 MG; Start 12/30/18 at 06:00 Docusate Sodium (Colace) 100 mg BID PO Last administered on 01/10/19 09:33; Admin Dose 100 MG; Start 12/29/18 at 18:30 Clopidogrel Bisulfate (plaVIX) 75 mg DAILY PO Last administered on 01/10/19at 09:34; Admin Dose 75 MG; Start 01/03/19 at 09:00 Furosemide (Lasix) 40 mg DAILY IV Last administered on 01/10/19at 08:20; Admin Dose 40 MG; Start 01/03/19 at 09:00 Morphine Sulfate (morphine) 1 mg Q1H PRN IV SEVERE PAIN LEVEL 7-10 Last administered on 01/10/19 07:58; Admin Dose 1 MG; Start 01/04/19 at 16:00 Polyethylene Glycol (Miralax) 17 gm BID PRN PO CONSTIPATION Last administered on 01/06/19 13:44; Admin Dose 17 GM; Start 01/06/19 at 13:00 Carvedilol (Coreg) 25 mg BID PO Last administered on 01/10/19 09:33; Admin Dose 25 MG; Start 01/06/19 at 21:00 IV Flush (NS 10 ml) 10 ml PRN PRN IV flush; Start 01/06/19 at 18:30 Bisacodyl (Dulcolax Supp) 10 mg DAILY PRN [place] CONSTIPATION; Start 01/06/19 at 1 9:00 Insulin Aspart (Novolog Insulin Pen) NOVOLOG *MILD* ALGORI... Q4 SC Last administered on 01/10/19 12:53; Admin Dose 2 UNIT; Start 01/07/19 at 05:00 Isosorbide Mononitrate (Imdur) 60 mg DAILY PO Last administered on 01/10/19 09:34; Admin Dose 60 MG; Start 01/08/19 at 09:00 Albuterol/ Ipratropium (Duoneb) 3 ml Q4H RESP THERAPY PRN HHN SHORTNESS OF BREATH Last administered on 01/10/19 08:25; Admin Dose 3 ML; Start 01/07/19 at 20:00 Sodium Bicarbonate 100 meq/Dextrose 1,000 ml @ 80 mls/hr [id number] IV Last administered on 01/10/19 13:05; Admin Dose 80 MLS/HR; Start 01/10/19 at 13:00 ELKIN NORTON January 10, 2019 16:04
[2019-01-10] MEDS: SOD CHLORIDE 0.45% 1,000 ML IV SCH (17:33)
[2019-01-10] MEDS: MIRTAZAPINE 15 MG TAB PO SCH (20:33)
[2019-01-10] MEDS: ATORVASTATIN 80 MG TAB PO SCH (20:33)
[2019-01-11] VITALS (42 sets, daily range): BP systolic 79–120; BP diastolic 36–82; PULSE 70–101; RESP 18–33
[2019-01-11] MEDS: ACCU-CHEK XX SCH (01:24)
[2019-01-11] MEDS: INSULIN ASPART [NOVOLOG] 3 ML PEN SC SCH ×6 (01:24→20:29)
[2019-01-11] MEDS: morphine 2 MG INJ IV PRN (03:49)
[2019-01-11] MEDS: PANTOPRAZOLE (EC) 40 MG TAB PO SCH (05:08)
[2019-01-11] MEDS: SOD CHLORIDE 0.45% 1,000 ML IV SCH (06:29)
[2019-01-11] MEDS: ALBUTEROL/IPRATROPIUM (NEB) 3 ML AMP HHN PRN ×3 (08:02→15:42)
[2019-01-11] MEDS: FUROSEMIDE 40 MG INJ IV SCH (08:17)
[2019-01-11] MEDS: CLOPIDOGREL 75 MG TAB PO SCH (09:18)
[2019-01-11] MEDS: ASPIRIN 81 MG TAB PO SCH (09:18)
[2019-01-11] MEDS: ESCITALOPRAM 10 MG TAB PO SCH (09:18)
[2019-01-11] MEDS: ISOSORBIDE MONONITRATE(SR)60 MG TAB PO SCH (09:19)
[2019-01-11] MEDS: DOCUSATE SODIUM 100 MG CAP PO SCH ×2 (09:20→20:27)
--- NOTE | 2019-01-11 10:23 | CONS ---
Consult Date/Type/Reason Admit Date/Time December 28, 2018 at 03:23 Initial Consult Date 01/03/19 Type of Consult Pulmonary Requesting Provider: KRYSTAL BERNARD Date/Time of Note DATE: 01/11/19 TIME: 10:20 Subjective Breathing remains labored. Patient continues to have no urine output since yesterday. Chest x-ray shows worsening pulmonary edema. Objective Vital Signs Date Temp Pulse Resp B/P (MAP) Pulse Ox O2 O2 Flow FiO2 Time Delivery Rate 01/11/19 82 26 96 Nasal 6.0 08:04 Cannula 01/11/19 88/59 (69) 06:00 01/11/19 60 04:50 01/11/19 97.9 04:00 Intake and Output 01/10/19 01/10/19 01/11/19 1515:00 23:00 07:00 IntakeIntake Total 660 ml 772.5 ml 725 ml OutputOutput Total 55 ml 45 ml 55 ml BalanceBalance 605 ml 727.5 ml 670 ml Exam GENERAL: Elderly lady on nasal cannula O2 VITAL SIGNS: per chart NECK: Supple. No JVD or lymphadenopathy. CARDIAC EXAM: S1, S2. No added sounds or murmurs. CHEST: Diminished air entry bilaterally ABDOMEN: Soft, nontender. No guarding or rebound. EXTREMITIES: No cyanosis, clubbing or edema. NEUROLOGIC: Generalized weakness. No focal deficits. Vent Setting Fraction of Inspired Oxygen pe: 30 Results/Medications Result Diagram: 01/11/19 0430 01/11/19 0430 Results 24 hrs Laboratory Tests Test 01/10/19 12:47 01/10/19 13:00 01/10/19 16:36 01/10/19 17:36 Bedside Glucose 193 218 Blood Gas Blood arterial Specimen Source Arterial Blood 01/10/2019 1:45: Date Drawn 00 PM Arterial Blood 7.313 L pH (Temp corrected) Arterial Blood 46.3 H pCO2 (Temp correct) Arterial Blood 66.9 L pO2 (Temp corrected) Arterial Blood 22.9 HCO3 Arterial Blood -3.5 L Base Excess Francis Test ACCEPTAB Arterial Blood Right Radial Gas Puncture Site Blood Gas A-a O2 157.8 H Differential Blood Gas 37.0 Temperature Blood Gas Actual 18 Respiration Rate Blood Gas NASAL CANNULA Modality FiO2 39.0 Blood Gas Jonna MAYA Notified Whom Blood Gas 01/10/2019 2:07: Notified Time 00 PM Sodium Level 146 H Potassium Level 4.2 Chloride Level 108 Carbon Dioxide 27 Level Anion Gap 11 Blood Urea 69 H Nitrogen Creatinine 3.11 H Est Glomerular Filtrat Rate mL/min Glucose Level 175 Calcium Level 8.0 L Test 01/10/19 20:32 01/11/19 01:22 01/11/19 04:30 01/11/19 05:08 Bedside Glucose 183 152 157 White Blood 23.8 H Count Red Blood Count 2.58 L Hemoglobin 7.9 L Hematocrit 25.6 L Mean Corpuscular 99.2 Volume Mean Corpuscular 30.6 Hemoglobin Mean Corpuscular 30.9 L Hemoglobin Devika nt Red Cell 18.1 H Distribution Width Platelet Count 321 Mean Platelet 10.1 Volume Immature 3.100 H Granulocytes % Neutrophils % 86.8 H Lymphocytes % 5.8 L Monocytes % 4.1 Eosinophils % 0.0 Basophils % 0.2 Nucleated Red 1.1 H Blood Cells % Immature 0.730 H Granulocytes # Neutrophils # 20.6 H Lymphocytes # 1.4 Monocytes # 1.0 H Eosinophils # 0.0 Basophils # 0.1 Nucleated Red 0.3 H Blood Cells # Sodium Level 144 Potassium Level 4.0 Chloride Level 106 Carbon Dioxide 25 Level Anion Gap 13 Blood Urea 74 H Nitrogen Creatinine 3.56 H Est Glomerular Filtrat Rate mL/min Glucose Level 144 Calcium Level 8.0 L Phosphorus Level 7.0 H Magnesium Level 2.3 Test 01/11/19 07:00 01/11/19 08:11 Blood Gas Blood arterial Specimen Source Arterial Blood 01/11/2019 9:07: Date Drawn 37 AM Arterial Blood 7.340 L pH (Temp corrected) Arterial Blood 40.4 pCO2 (Temp correct) Arterial Blood 70.0 L pO2 (Temp corrected) Arterial Blood 21.3 L HCO3 Arterial Blood -4.1 L Base Excess Arterial Blood 91.5 L Oxygen Saturatio n Francis Test ACCEPTAB Arterial Blood Left Radial Gas Puncture Site Arterial 0.1 Blood Carboxyhem oglobin Arterial Blood 0.5 Methemoglobin Blood Gas A-a O2 161.5 H Differential Oxyhemoglobin 91.0 L Percent Blood Gas 37.0 Temperature Blood Gas NASAL CANNULA Modality FiO2 39.0 Blood Gas DT Notified Whom Blood Gas 01/11/2019 9:20: Notified Time 30 AM Bedside Glucose 126 Medications Current Medications IV Flush (NS 3 ml) 3 ml PER PROTOCOL IV ; Start 12/28/18 at 04:30 Ondansetron HCl (Zofran Inj) 4 mg Q6H PRN IV NAUSEA/VOMITING Last administered on 01/04/19 08:54; Admin Dose 4 MG; Start 12/28/18 at 04:30 Aspirin (Aspirin) 81 mg DAILY PO Last administered on 01/11/19 09:18; Admin Dose 81 MG; Start 12/28/18 at 09:00 Nitroglycerin (Nitroglycerin (Sl Tab) 0.4 Mg) 1 tab Q5M PRN SL .CHEST PAIN Last administered on 01/10/19 08:03; Admin Dose 1 TAB; Start 12/28/18 at 04:30 Diagnostic Test (Pha) (Accu-Chek) 1 ea 02 XX Last administered on 01/11/19 01:24; Admin Dose 1 EA; Start 12/29/18 at 02:00 Miscellaneous Information 1 ea NOTE XX ; Start 12/28/18 at 05:00 Glucose (Glutose) 15 gm Q15M PRN PO DECREASED GLUCOSE; Start 12/28/18 at 05:00 Glucose (Glutose) 22.5 gm Q15M PRN PO DECREASED GLUCOSE; Start 12/28/18 at 05:00 Dextrose (D50w Syringe) 25 ml Q15M PRN IV DECREASED GLUCOSE; Start 12/28/18 at 05:00 Dextrose (D50w Syringe) 50 ml Q15M PRN IV DECREASED GLUCOSE; Start 12/28/18 at 05:00 Glucagon (Glucagen) 1 mg Q15M PRN IM DECREASED GLUCOSE; Start 12/28/18 at 05:00 Glucose (Glutose) 15 gm Q15M PRN BUCCAL DECREASED GLUCOSE; Start 12/28/18 at 05:00 Atorvastatin Calcium (Lipitor) 80 mg HS PO Last administered on 01/10/19at 20:33; Admin Dose 80 MG; Start 12/29/18 at 21:00 Phenol (Cepastat Lozenge) 1 lozenge Q1H PRN MT COUGH Last administered on 01/03/19at 13:05; Admin Dose 1 LOZENGE; Start 12/28/18 at 17:30 Escitalopram Oxalate (Lexapro) 10 mg DAILY PO Last administered on 01/11/19 09:18; Admin Dose 10 MG; Start 12/29/18 at 09:30 Risedronate (Actonel) 35 mg Tu@AC BREAKFAST PO ; Start 12/30/18 at 07:00 Mirtazapine (Remeron) 15 mg HS PO Last administered on 01/10/19 20:33; Admin Dose 15 MG; Start 12/29/18 at 21:00 Pantoprazole (Protonix Tab) 40 mg DAILY@06 PO Last administered on 01/11/19 05:08; Admin Dose 40 MG; Start 12/30/18 at 06:00 Docusate Sodium (Colace) 100 mg BID PO Last administered on 01/11/19 09:20; Admin Dose 100 MG; Start 12/29/18 at 18:30 Clopidogrel Bisulfate (plaVIX) 75 mg DAILY PO Last administered on 01/11/19 09:18; Admin Dose 75 MG; Start 01/03/19 at 09:00 Furosemide (Lasix) 40 mg DAILY IV Last administered on 01/11/19 08:17; Admin Dose 40 MG; Start 01/03/19 at 09:00 Morphine Sulfate (morphine) 1 mg Q1H PRN IV SEVERE PAIN LEVEL 7-10 Last adminis tered on 01/11/19 03:49; Admin Dose 1 MG; Start 01/04/19 at 16:00 Polyethylene Glycol (Miralax) 17 gm BID PRN PO CONSTIPATION Last administered on 01/06/19 13:44; Admin Dose 17 GM; Start 01/06/19 at 13:00 Carvedilol (Coreg) 25 mg BID PO Last administered on 01/11/19 09:20; Admin Dose 25 MG; Start 01/06/19 at 21:00 IV Flush (NS 10 ml) 10 ml PRN PRN IV flush; Start 01/06/19 at 18:30 Bisacodyl (Dulcolax Supp) 10 mg DAILY PRN MT CONSTIPATION; Start 01/06/19 at 19:00 Insulin Aspart (Novolog Insulin Pen) NOVOLOG *MILD* ALGORI... Q4 SC Last administered on 01/11/19 05:12; Admin Dose 1 UNIT; Start 01/07/19 at 05:00 Isosorbide Mononitrate (Imdur) 60 mg DAILY PO Last administered on 01/11/19at 09:19; Admin Dose 60 MG; Start 01/08/19 at 09:00 Albuterol/ Ipratropium (Duoneb) 3 ml Q4H RESP THERAPY PRN HHN SHORTNESS OF BREATH Last administered on 01/11/19at 08:02; Admin Dose 3 ML; Start 01/07/19 at 20:00 Sodium Chloride 1,000 ml @ 75 mls/hr [id number] IV Last administered on 01/11/19at 06:29; Admin Dose 75 MLS/HR; Start 01/10/19 at 17:30 Assessment/Plan Hospital Course (Demo Recall) iMP: 1. s/p Acute TX--now with unstable angina 2. CHF ongoing pulmonary edema 3. Hypercapnic Resp Insufficiency 4. Severe CAD 5. Bacteremia 6. Acute and CKD, likely component of contrast nephropathy. worsening renal failure with metabolic acidosis. 7. Possible aspiration pneumonia. Right upper lobe infiltrate 8. Encephalopathy toxic metabolic, 9. Persistent leukocytosis RECS: 1. Worsening renal failure with metabolic acidosis and pulmonary edema likely requiring initiation of hemodialysis. Will discuss with nephrology. 2. Follow I/O's and renal function 3. Aspiration precautions. CT chest to evaluate right upper lobe infiltrate when more stable. 4. BiPAP prn, 5. Continue NTG gtt as needed. 6. Cardiac recommendations post catheterization 7. Abx as per ID 35 min cc time Prognosis remains guarded. TONE REID MD, [facility] January 11, 2019 10:23
[2019-01-11] MEDS ORDERED: BUMETANIDE 25 MG in DEXTROSE 5% 150 ML IV SCH (11:00)
--- NOTE | 2019-01-11 12:01 | CONS ---
Assessment/Plan Assessment/Plan Assessment/Plan (Daily) 1. Acute kidney injury on CKD III 2/2 Hemodynamics from CHF + NSTEMI - on Bumex drip - cont to follow 2. Hypokalemia 3. Hypernatremia 4. acute NSTEMI s/p LHC showed multivessel obstructive CAD - s/p Successful PTCA and stenting of proximal left anterior descending artery using a 3 x 20 mm Synergy drug-eluting stent on 01/04/19- s/p LHC with proximal RCA stenting on 01/08/19 5. CAD multivessel obstructive 6. 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 dw staff Consultation Date/Type/Reason Admit Date/Time December 28, 2018 at 03:23 Initial Consult Date 01/03/19 Type of Consult nephrology Reason for Consultation WILLIAM on CKD III Requesting Provider: KRYSTAL BERNARD Date/Time of Note DATE: 01/11/19 TIME: 11:54 24 HR Interval Summary Free Text/Dictation BUN/Cr- trended to 74.3.56 today - on Bumex drip - cont to follow Subjective hx not possible: pt non-verbal Constitutional: requiring IVF, requiring O2 Exam/Review of Systems Exam Vitals Vital Signs Date Temp Pulse Resp B/P (MAP) Pulse Ox O2 O2 Flow FiO2 Time Delivery Rate 01/11/19 74 24 95 Nasal 6.0 11:46 Cannula 01/11/19 98/46 (63) 10:30 01/11/19 97.7 08:00 01/11/19 60 04:50 Intake and Output 01/10/19 01/10/19 01/11/19 1515:00 23:00 07:00 IntakeIntake Total 660 ml 772.5 ml 800 ml OutputOutput Total 55 ml 45 ml 55 ml BalanceBalance 605 ml 727.5 ml 745 ml Constitutional: well developed, non-verbal, frail Psych: nl mood/affect Eyes: nl lids, nl sclera ENMT: nl external ears & nose Neck: supple Respiratory: clear to auscultation Cardiovascular: nl pulses, other (s1s2) Gastrointestinal: soft, non-tender Musculoskeletal: muscle weakness Extremities: edema Neurological: unresponsive Results Result Diagram: 01/11/19 1101 01/11/19 0430 Results 24hrs Laboratory Tests Test 01/10/19 12:47 01/10/19 13:00 01/10/19 16:36 01/10/19 17:36 Bedside Glucose 193 218 Blood Gas Blood arterial Specimen Source Arterial Blood 01/10/2019 1:45: Date Drawn 00 PM Arterial Blood 7.313 L pH (Temp corrected) Arterial Blood 46.3 H pCO2 (Temp correct) Arterial Blood 66.9 L pO2 (Temp corrected) Arterial Blood 22.9 HCO3 Arterial Blood -3.5 L Base Excess Francis Test ACCEPTAB Arterial Blood Right Radial Gas Puncture Site Blood Gas A-a O2 157.8 H Differential Blood Gas 37.0 Temperature Blood Gas Actual 18 Respiration Rate Blood Gas NASAL CANNULA Modality FiO2 39.0 Blood Gas Jonna MAYA Notified Whom Blood Gas 01/10/2019 2:07: Notified Time 00 PM Sodium Level 146 H Potassium Level 4.2 Chloride Level 108 Carbon Dioxide 27 Level Anion Gap 11 Blood Urea 69 H Nitrogen Creatinine 3.11 H Est Glomerular Filtrat Rate mL/min Glucose Level 175 Calcium Level 8.0 L Test 01/10/19 20:32 01/11/19 01:22 01/11/19 04:30 01/11/19 05:08 Bedside Glucose 183 152 157 White Blood 23.8 H Count Red Blood Count 2.58 L Hemoglobin 7.9 L Hematocrit 25.6 L Mean Corpuscular 99.2 Volume Mean Corpuscular 30.6 Hemoglobin Mean Corpuscular 30.9 L Hemoglobin Devika nt Red Cell 18.1 H Distribution Width Platelet Count 321 Mean Platelet 10.1 Volume Immature 3.100 H Granulocytes % Neutrophils % 86.8 H Lymphocytes % 5.8 L Monocytes % 4.1 Eosinophils % 0.0 Basophils % 0.2 Nucleated Red 1.1 H Blood Cells % Immature 0.730 H Granulocytes # Neutrophils # 20.6 H Lymphocytes # 1.4 Monocytes # 1.0 H Eosinophils # 0.0 Basophils # 0.1 Nucleated Red 0.3 H Blood Cells # Sodium Level 144 Potassium Level 4.0 Chloride Level 106 Carbon Dioxide 25 Level Anion Gap 13 Blood Urea 74 H Nitrogen Creatinine 3.56 H Est Glomerular Filtrat Rate mL/min Glucose Level 144 Calcium Level 8.0 L Phosphorus Level 7.0 H Magnesium Level 2.3 Test 01/11/19 07:00 01/11/19 08:11 01/11/19 11:01 Blood Gas Blood arterial Specimen Source Arterial Blood 01/11/2019 9:07: Date Drawn 37 AM Arterial Blood 7.340 L pH (Temp corrected) Arterial Blood 40.4 pCO2 (Temp correct) Arterial Blood 70.0 L pO2 (Temp corrected) Arterial Blood 21.3 L HCO3 Arterial Blood -4.1 L Base Excess Arterial Blood 91.5 L Oxygen Saturatio n Francis Test ACCEPTAB Arterial Blood Left Radial Gas Puncture Site Arterial 0.1 Blood Carboxyhem oglobin Arterial Blood 0.5 Methemoglobin Blood Gas A-a O2 161.5 H Differential Oxyhemoglobin 91.0 L Percent Blood Gas 37.0 Temperature Blood Gas NASAL CANNULA Modality FiO2 39.0 Blood Gas DT Notified Whom Blood Gas 01/11/2019 9:20: Notified Time 30 AM Bedside Glucose 126 White Blood 23.9 H Count Red Blood Count 2.53 L Hemoglobin 7.7 L Hematocrit 25.2 L Mean Corpuscular 99.6 Volume Mean Corpuscular 30.4 Hemoglobin Mean Corpuscular 30.6 L Hemoglobin Devika nt Red Cell 18.3 H Distribution Width Platelet Count 306 Mean Platelet 10.0 Volume Immature 3.000 H Granulocytes % Neutrophils % 87.1 H Lymphocytes % 5.7 L Monocytes % 4.0 Eosinophils % 0.0 Basophils % 0.2 Nucleated Red 1.1 H Blood Cells % Immature 0.720 H Granulocytes # Neutrophils # 20.8 H Lymphocytes # 1.4 Monocytes # 1.0 H Eosinophils # 0.0 Basophils # 0.1 Nucleated Red 0.3 H Blood Cells # Medications Medication Current Medications IV Flush (NS 3 ml) 3 ml PER PROTOCOL IV ; Start 12/28/18 at 04:30 Ondansetron HCl (Zofran Inj) 4 mg Q6H PRN IV NAUSEA/VOMITING Last administered on 01/04/19at 08:54; Admin Dose 4 MG; Start 12/28/18 at 04:30 Aspirin (Aspirin) 81 mg DAILY PO Last administered on 01/11/19at 09:18; Admin Dose 81 MG; Start 12/28/18 at 09:00 Nitroglycerin (Nitroglycerin (Sl Tab) 0.4 Mg) 1 tab Q5M PRN SL .CHEST PAIN Last administered on 01/10/19at 08:03; Admin Dose 1 TAB; Start 12/28/18 at 04:30 Diagnostic Test (Pha) (Accu-Chek) 1 ea 02 XX Last administered on 01/11/19at 01:24; Admin Dose 1 EA; Start 12/29/18 at 02:00 Miscellaneous Information 1 ea NOTE XX ; Start 12/28/18 at 05:00 Glucose (Glutose) 15 gm Q15M PRN PO DECREASED GLUCOSE; Start 12/28/18 at 05:00 Glucose (Glutose) 22.5 gm Q15M PRN PO DECREASED GLUCOSE; Start 12/28/18 at 05:00 Dextrose (D50w Syringe) 25 ml Q15M PRN IV DECREASED GLUCOSE; Start 12/28/18 at 05:00 Dextrose (D50w Syringe) 50 ml Q15M PRN IV DECREASED GLUCOSE; Start 12/28/18 at 05:00 Glucagon (Glucagen) 1 mg Q15M PRN IM DECREASED GLUCOSE; Start 12/28/18 at 05:00 Glucose (Glutose) 15 gm Q15M PRN BUCCAL DECREASED GLUCOSE; Start 12/28/18 at 05:00 Atorvastatin Calcium (Lipitor) 80 mg HS PO Last administered on 01/10/19at 20:33; Admin Dose 80 MG; Start 12/29/18 at 21:00 Phenol (Cepastat Lozenge) 1 lozenge Q1H PRN MT COUGH Last administered on 01/03/19at 13:05; Admin Dose 1 LOZENGE; Start 12/28/18 at 17:30 Escitalopram Oxalate (Lexapro) 10 mg DAILY PO Last administered on 01/11/19at 0 9:18; Admin Dose 10 MG; Start 12/29/18 at 09:30 Risedronate (Actonel) 35 mg Tu@AC BREAKFAST PO ; Start 12/30/18 at 07:00 Mirtazapine (Remeron) 15 mg HS PO Last administered on 01/10/19 20:33; Admin D ose 15 MG; Start 12/29/18 at 21:00 Pantoprazole (Protonix Tab) 40 mg DAILY@06 PO Last administered on 01/11/19 05:08; Admin Dose 40 MG; Start 12/30/18 at 06:00 Docusate Sodium (Colace) 100 mg BID PO Last administered on 01/11/19 09:20; Admin Dose 100 MG; Start 12/29/18 at 18:30 Clopidogrel Bisulfate (plaVIX) 75 mg DAILY PO Last administered on 01/11/19 09:18; Admin Dose 75 MG; Start 01/03/19 at 09:00 Morphine Sulfate (morphine) 1 mg Q1H PRN IV SEVERE PAIN LEVEL 7-10 Last administered on 01/11/19 03:49; Admin Dose 1 MG; Start 01/04/19 at 16:00 Polyethylene Glycol (Miralax) 17 gm BID PRN PO CONSTIPATION Last administered on 01/06/19 13:44; Admin Dose 17 GM; Start 01/06/19 at 13:00 Carvedilol (Coreg) 25 mg BID PO Last administered on 01/11/19 09:20; Admin Dose 25 MG; Start 01/06/19 at 21:00 IV Flush (NS 10 ml) 10 ml PRN PRN IV flush; Start 01/06/19 at 18:30 Bisacodyl (Dulcolax Supp) 10 mg DAILY PRN [place] CONSTIPATION; Start 01/06/19 at 19:00 Insulin Aspart (Novolog Insulin Pen) NOVOLOG *MILD* ALGORI... Q4 SC Last administered on 01/11/19 05:12; Admin Dose 1 UNIT; Start 01/07/19 at 05:00 Isosorbide Mononitrate (Imdur) 60 mg DAILY PO Last administered on 01/11/19 09:19; Admin Dose 60 MG; Start 01/08/19 at 09:00 Albuterol/ Ipratropium (Duoneb) 3 ml Q4H RESP THERAPY PRN HHN SHORTNESS OF BREATH Last administered on 01/11/19 11:45; Admin Dose 3 ML; Start 01/07/19 at 20:00 Sodium Chloride 1,000 ml @ 40 mls/hr Q24H IV Last administered on 01/11/19at 06:29; Admin Dose 75 MLS/HR; Start 01/10/19 at 17:30 Bumetanide 25 mg/ Dextrose 250 ml @ 10 mls/hr Q24H IV ; Start 01/11/19 at 12:00; Status Future hold ELKIN NORTON January 11, 2019 12:01
--- NOTE | 2019-01-11 12:11 | PN ---
Date/Time of Note Date/Time of Note DATE: 01/11/19 TIME: 12:09 Assessment/Plan VTE Prophylaxis Risk score (from [facility] [place]0 risk: 10 SCD applied (from [facility] [place]): Yes Pharmacological prophylaxis: NA/contraindicated Pharm contraindication: renal impairment Assessment/Plan Hospital Course 83 yo Slovak-speaking woman with history of dementia, hypertension, dyslipidemia, severe MR and aortic stenosis, arrhythmia who presents with ACS and multi-vessel coronary artery disease. #Acute [place] #CAD - STEMI with LBBB - patient had cardiac cath on 12/28, found with: Severe 2 vessel CAD, LAD and RCA, LAD is culprit with francine 2 flow, and cardiomyopathy with LVEF 35%. Again patient also with severe aortic regurgitation and at least moderate mitral regurgitation. - Continue, Lipitor, beta-geovanny, statin, Plavix and Imdur - Now s/p PCI to LAD (01/04) and RCA (01/08) - She does also have severe AI, may need TAVR in the future. #Acute CHF exacerbation - likely due to acute ischemic CAD/STEMI - currently on IV lasix -Status post nitro gtt #Bacteremia: 2 out of 2 bottles positive for coagulase-negative staph - Finished 7 days of zosyn+vanco. -Short course of antibiotics given due to drug rash -Repeat blood cultures are negative #Rash - Erythematous, macular rash on lower abdomen and part of chest noted 01/07 - May be related to transfusion, or drug reaction. - Got decadon, benadryl, pepcid without significant improvement. - Stopped zosyn and vanco, this may have been a delayed drug reaction. #WILLIAM: Patient with poor urine output -Monitor, follow-up recommendations from renal consult, patient may require dialysis -Patient on Bumex -No CRISTINO or ARB at this time #Acute on chronic encephalopathy -Patient with baseline dementia but mentation has worsened likely secondary to delirium and steroids -Have discontinued steroids and mentation has somewhat improved Prophylaxis: SCDs Result Diagram: 01/11/19 1101 01/11/19 0430 Results 24hrs Laboratory Tests Test 01/10/19 12:47 01/10/19 13:00 01/10/19 16:36 01/10/19 17:36 Bedside Glucose 193 218 Blood Gas Blood arterial Specimen Source Arterial Blood 01/10/2019 1:45: Date Drawn 00 PM Arterial Blood 7.313 L pH (Temp corrected) Arterial Blood 46.3 H pCO2 (Temp correct) Arterial Blood 66.9 L pO2 (Temp corrected) Arterial Blood 22.9 HCO3 Arterial Blood -3.5 L Base Excess Francis Test ACCEPTAB Arterial Blood Right Radial Gas Puncture Site Blood Gas A-a O2 157.8 H Differential Blood Gas 37.0 Temperature Blood Gas Actual 18 Respiration Rate Blood Gas NASAL CANNULA Modality FiO2 39.0 Blood Gas Jonna MAYA Notified Whom Blood Gas 01/10/2019 2:07: Notified Time 00 PM Sodium Level 146 H Potassium Level 4.2 Chloride Level 108 Carbon Dioxide 27 Level Anion Gap 11 Blood Urea 69 H Nitrogen Creatinine 3.11 H Est Glomerular Filtrat Rate mL/min Glucose Level 175 Calcium Level 8.0 L Test 01/10/19 20:32 01/11/19 01:22 01/11/19 04:30 01/11/19 05:08 Bedside Glucose 183 152 157 White Blood 23.8 H Count Red Blood Count 2.58 L Hemoglobin 7.9 L Hematocrit 25.6 L Mean Corpuscular 99.2 Volume Mean Corpuscular 30.6 Hemoglobin Mean Corpuscular 30.9 L Hemoglobin Devika nt Red Cell 18.1 H Distribution Width Platelet Count 321 Mean Platelet 10.1 Volume Immature 3.100 H Granulocytes % Neutrophils % 86.8 H Lymphocytes % 5.8 L Monocytes % 4.1 Eosinophils % 0.0 Basophils % 0.2 Nucleated Red 1.1 H Blood Cells % Immature 0.730 H Granulocytes # Neutrophils # 20.6 H Lymphocytes # 1.4 Monocytes # 1.0 H Eosinophils # 0.0 Basophils # 0.1 Nucleated Red 0.3 H Blood Cells # Sodium Level 144 Potassium Level 4.0 Chloride Level 106 Carbon Dioxide 25 Level Anion Gap 13 Blood Urea 74 H Nitrogen Creatinine 3.56 H Est Glomerular Filtrat Rate mL/min Glucose Level 144 Calcium Level 8.0 L Phosphorus Level 7.0 H Magnesium Level 2.3 Test 01/11/19 07:00 01/11/19 08:11 01/11/19 11:01 Blood Gas Blood arterial Specimen Source Arterial Blood 01/11/2019 9:07: Date Drawn 37 AM Arterial Blood 7.340 L pH (Temp corrected) Arterial Blood 40.4 pCO2 (Temp correct) Arterial Blood 70.0 L pO2 (Temp corrected) Arterial Blood 21.3 L HCO3 Arterial Blood -4.1 L Base Excess Arterial Blood 91.5 L Oxygen Saturatio n Francis Test ACCEPTAB Arterial Blood Left Radial Gas Puncture Site Arterial 0.1 Blood Carboxyhem oglobin Arterial Blood 0.5 Methemoglobin Blood Gas A-a O2 161.5 H Differential Oxyhemoglobin 91.0 L Percent Blood Gas 37.0 Temperature Blood Gas NASAL CANNULA Modality FiO2 39.0 Blood Gas DT Notified Whom Blood Gas 01/11/2019 9:20: Notified Time 30 AM Bedside Glucose 126 White Blood 23.9 H Count Red Blood Count 2.53 L Hemoglobin 7.7 L Hematocrit 25.2 L Mean Corpuscular 99.6 Volume Mean Corpuscular 30.4 Hemoglobin Mean Corpuscular 30.6 L Hemoglobin Devika nt Red Cell 18.3 H Distribution Width Platelet Count 306 Mean Platelet 10.0 Volume Immature 3.000 H Granulocytes % Neutrophils % 87.1 H Lymphocytes % 5.7 L Monocytes % 4.0 Eosinophils % 0.0 Basophils % 0.2 Nucleated Red 1.1 H Blood Cells % Immature 0.720 H Granulocytes # Neutrophils # 20.8 H Lymphocytes # 1.4 Monocytes # 1.0 H Eosinophils # 0.0 Basophils # 0.1 Nucleated Red 0.3 H Blood Cells # Subjective 24 Hr Interval Summary Constitutional: disoriented Exam/Review of Systems Exam Vitals Vital Signs Date Temp Pulse Resp B/P (MAP) Pulse Ox O2 O2 Flow FiO2 Time Delivery Rate 01/11/19 74 24 95 Nasal 6.0 11:46 Cannula 01/11/19 98/46 (63) 10:30 01/11/19 97.7 08:00 01/11/19 60 04:50 Intake and Output 01/10/19 01/10/19 01/11/19 1515:00 23:00 07:00 IntakeIntake Total 660 ml 772.5 ml 800 ml OutputOutput Total 55 ml 45 ml 55 ml BalanceBalance 605 ml 727.5 ml 745 ml Psych: confusion Respiratory: clear to auscultation Cardiovascular: regular rate and rhythm Gastrointestinal: soft; No distended Musculoskeletal: nl extremities to inspection Results Results 24hrs Laboratory Tests Test 01/10/19 12:47 01/10/19 13:00 01/10/19 16:36 01/10/19 17:36 Bedside Glucose 193 218 Blood Gas Blood arterial Specimen Source Arterial Blood 01/10/2019 1:45: Date Drawn 00 PM Arterial Blood 7.313 L pH (Temp corrected) Arterial Blood 46.3 H pCO2 (Temp correct) Arterial Blood 66.9 L pO2 (Temp corrected) Arterial Blood 22.9 HCO3 Arterial Blood -3.5 L Base Excess Francis Test ACCEPTAB Arterial Blood Right Radial Gas Puncture Site Blood Gas A-a O2 157.8 H Differential Blood Gas 37.0 Temperature Blood Gas Actual 18 Respiration Rate Blood Gas NASAL CANNULA Modality FiO2 39.0 Blood Gas Jonna MAYA Notified Whom Blood Gas 01/10/2019 2:07: Notified Time 00 PM Sodium Level 146 H Potassium Level 4.2 Chloride Level 108 Carbon Dioxide 27 Level Anion Gap 11 Blood Urea 69 H Nitrogen Creatinine 3.11 H Est Glomerular Filtrat Rate mL/min Glucose Level 175 Calcium Level 8.0 L Test 01/10/19 20:32 01/11/19 01:22 01/11/19 04:30 01/11/19 05:08 Bedside Glucose 183 152 157 White Blood 23.8 H Count Red Blood Count 2.58 L Hemoglobin 7.9 L Hematocrit 25.6 L Mean Corpuscular 99.2 Volume Mean Corpuscular 30.6 Hemoglobin Mean Corpuscular 30.9 L Hemoglobin Devika nt Red Cell 18.1 H Distribution Width Platelet Count 321 Mean Platelet 10.1 Volume Immature 3.100 H Granulocytes % Neutrophils % 86.8 H Lymphocytes % 5.8 L Monocytes % 4.1 Eosinophils % 0.0 Basophils % 0.2 Nucleated Red 1.1 H Blood Cells % Immature 0.730 H Granulocytes # Neutrophils # 20.6 H Lymphocytes # 1.4 Monocytes # 1.0 H Eosinophils # 0.0 Basophils # 0.1 Nucleated Red 0.3 H Blood Cells # Sodium Level 144 Potassium Level 4.0 Chloride Level 106 Carbon Dioxide 25 Level Anion Gap 13 Blood Urea 74 H Nitrogen Creatinine 3.56 H Est Glomerular Filtrat Rate mL/min Glucose Level 144 Calcium Level 8.0 L Phosphorus Level 7.0 H Magnesium Level 2.3 Test 01/11/19 07:00 01/11/19 08:11 01/11/19 11:01 Blood Gas Blood arterial Specimen Source Arterial Blood 01/11/2019 9:07: Date Drawn 37 AM Arterial Blood 7.340 L pH (Temp corrected) Arterial Blood 40.4 pCO2 (Temp correct) Arterial Blood 70.0 L pO2 (Temp corrected) Arterial Blood 21.3 L HCO3 Arterial Blood -4.1 L Base Excess Arterial Blood 91.5 L Oxygen Saturatio n Francis Test ACCEPTAB Arterial Blood Left Radial Gas Puncture Site Arterial 0.1 Blood Carboxyhem oglobin Arterial Blood 0.5 Methemoglobin Blood Gas A-a O2 161.5 H Differential Oxyhemoglobin 91.0 L Percent Blood Gas 37.0 Temperature Blood Gas NASAL CANNULA Modality FiO2 39.0 Blood Gas DT Notified Whom Blood Gas 01/11/2019 9:20: Notified Time 30 AM Bedside Glucose 126 White Blood 23.9 H Count Red Blood Count 2.53 L Hemoglobin 7.7 L Hematocrit 25.2 L Mean Corpuscular 99.6 Volume Mean Corpuscular 30.4 Hemoglobin Mean Corpuscular 30.6 L Hemoglobin Devika nt Red Cell 18.3 H Distribution Width Platelet Count 306 Mean Platelet 10.0 Volume Immature 3.000 H Granulocytes % Neutrophils % 87.1 H Lymphocytes % 5.7 L Monocytes % 4.0 Eosinophils % 0.0 Basophils % 0.2 Nucleated Red 1.1 H Blood Cells % Immature 0.720 H Granulocytes # Neutrophils # 20.8 H Lymphocytes # 1.4 Monocytes # 1.0 H Eosinophils # 0.0 Basophils # 0.1 Nucleated Red 0.3 H Blood Cells # Medications Medication Current Medications IV Flush (NS 3 ml) 3 ml PER PROTOCOL IV ; Start 12/28/18 at 04:30 Ondansetron HCl (Zofran Inj) 4 mg Q6H PRN IV NAUSEA/VOMITING Last administered on 01/04/19 08:54; Admin Dose 4 MG; Start 12/28/18 at 04:30 Aspirin (Aspirin) 81 mg DAILY PO Last administered on 01/11/19 09:18; Admin Dose 81 MG; Start 12/28/18 at 09:00 Nitroglycerin (Nitroglycerin (Sl Tab) 0.4 Mg) 1 tab Q5M PRN SL .CHEST PAIN Last administered on 01/10/19 08:03; Admin Dose 1 TAB; Start 12/28/18 at 04:30 Diagnostic Test (Pha) (Accu-Chek) 1 ea 02 XX Last administered on 01/11/19at 01:24; Admin Dose 1 EA; Start 12/29/18 at 02:00 Miscellaneous Information 1 ea NOTE XX ; Start 12/28/18 at 05:00 Glucose (Glutose) 15 gm Q15M PRN PO DECREASED GLUCOSE; Start 12/28/18 at 05:00 Glucose (Glutose) 22.5 gm Q15M PRN PO DECREASED GLUCOSE; Start 12/28/18 at 05:00 Dextrose (D50w Syringe) 25 ml Q15M PRN IV DECREASED GLUCOSE; Start 12/28/18 at 05:00 Dextrose (D50w Syringe) 50 ml Q15M PRN IV DECREASED GLUCOSE; Start 12/28/18 at 05:00 Glucagon (Glucagen) 1 mg Q15M PRN IM DECREASED GLUCOSE; Start 12/28/18 at 05:00 Glucose (Glutose) 15 gm Q15M PRN BUCCAL DECREASED GLUCOSE; Start 12/28/18 at 05:00 Atorvastatin Calcium (Lipitor) 80 mg HS PO Last administered on 01/10/19at 20:33; Admin Dose 80 MG; Start 12/29/18 at 21:00 Phenol (Cepastat Lozenge) 1 lozenge Q1H PRN MT COUGH Last administered on 01/03/19at 13:05; Admin Dose 1 LOZENGE; Start 12/28/18 at 17:30 Escitalopram Oxalate (Lexapro) 10 mg DAILY PO Last administered on 01/11/19 09 :18; Admin Dose 10 MG; Start 12/29/18 at 09:30 Risedronate (Actonel) 35 mg Tu@AC BREAKFAST PO ; Start 12/30/18 at 07:00 Mirtazapine (Remeron) 15 mg HS PO Last administered on 01/10/19at 20:33; Admin Dose 15 MG; Start 12/29/18 at 21:00 Pantoprazole (Protonix Tab) 40 mg DAILY@06 PO Last administered on 01/11/19 05:08; Admin Dose 40 MG; Start 12/30/18 at 06:00 Docusate Sodium (Colace) 100 mg BID PO Last administered on 01/11/19at 09:20; Admin Dose 100 MG; Start 12/29/18 at 18:30 Clopidogrel Bisulfate (plaVIX) 75 mg DAILY PO Last administered on 01/11/19at 09:18; Admin Dose 75 MG; Start 01/03/19 at 09:00 Morphine Sulfate (morphine) 1 mg Q1H PRN IV SEVERE PAIN LEVEL 7-10 Last administered on 01/11/19 03:49; Admin Dose 1 MG; Start 01/04/19 at 16:00 Polyethylene Glycol (Miralax) 17 gm BID PRN PO CONSTIPATION Last administered on 01/06/19 13:44; Admin Dose 17 GM; Start 01/06/19 at 13:00 Carvedilol (Coreg) 25 mg BID PO Last administered on 01/11/19 09:20; Admin Dose 25 MG; Start 01/06/19 at 21:00 IV Flush (NS 10 ml) 10 ml PRN PRN IV flush; Start 01/06/19 at 18:30 Bisacodyl (Dulcolax Supp) 10 mg DAILY PRN [place] CONSTIPATION; Start 01/06/19 at 19:00 Insulin Aspart (Novolog Insulin Pen) NOVOLOG *MILD* ALGORI... Q4 SC Last administered on 01/11/19 05:12; Admin Dose 1 UNIT; Start 01/07/19 at 05:00 Isosorbide Mononitrate (Imdur) 60 mg DAILY PO Last administered on 01/11/19 09:19; Admin Dose 60 MG; Start 01/08/19 at 09:00 Albuterol/ Ipratropium (Duoneb) 3 ml Q4H RESP THERAPY PRN HHN SHORTNESS OF BREATH Last administered on 01/11/19 11:45; Admin Dose 3 ML; Start 01/07/19 at 20:00 Sodium Chloride 1,000 ml @ 40 mls/hr Q24H IV Last administered on 01/11/19 06:29; Admin Dose 75 MLS/HR; Start 01/10/19 at 17:30 Bumetanide 25 mg/ Dextrose 250 ml @ 10 mls/hr Q24H IV ; Start 01/11/19 at 12:00 DELORIS EVANGELISTA January 11, 2019 12:11
[2019-01-11] MEDS: BUMETANIDE 25 MG in DEXTROSE 5% 150 ML IV SCH (12:26)
--- NOTE | 2019-01-11 14:03 | CONS ---
Assessment/Plan Assessment/Plan Hospital Course (Demo Recall) Coverage for Dr Alvarenga [place] s/p pci WILLIAM CM Labile BP, now hypotension Acute blood loss anemia -BP low after am meds, adjust dose with holding parameters -worsening anemia, given recent TX, and low BP and repeat Hg low, would transfuse pRBC -cont DAPT -fluid and diuretic management as per renal -discussed with nurse and at bedside Consultation Date/Type/Reason Admit Date/Time December 28, 2018 at 03:23 Initial Consult Date 01/03/19 Type of Consult Cardiology Requesting Provider: KRYSTAL BERNARD Date/Time of Note DATE: 01/11/19 TIME: 13:59 24 HR Interval Summary Free Text/Dictation no cp as per nurse, sleeping, bp low today after am meds Exam/Review of Systems Vital Signs Vitals Vital Signs Date Temp Pulse Resp B/P (MAP) Pulse Ox O2 O2 Flow FiO2 Time Delivery Rate 01/11/19 74 12:00 01/11/19 24 95 Nasal 6.0 11:46 Cannula 01/11/19 98/46 (63) 10:30 01/11/19 97.7 08:00 01/11/19 60 04:50 Intake and Output 01/10/19 01/10/19 01/11/19 1515:00 23:00 07:00 IntakeIntake Total 660 ml 772.5 ml 800 ml OutputOutput Total 55 ml 45 ml 55 ml BalanceBalance 605 ml 727.5 ml 745 ml Exam Exam sleeping, nad, at bedside Head: normocephalic Respiratory: crackles/rales (mild), other (course bs, no wheeze) Cardiovascular: regular rate and rhythm (s1s2), systolic murmur Gastrointestinal: soft, non-tender, bowel sounds Extremities: edema Labs Result Diagram: 01/11/19 1101 01/11/19 0430 Results 24hrs Laboratory Tests Test 01/10/19 16:36 01/10/19 17:36 01/10/19 20:32 01/11/19 01:22 Sodium Level 146 H Potassium Level 4.2 Chloride Level 108 Carbon Dioxide 27 Level Anion Gap 11 Blood Urea 69 H Nitrogen Creatinine 3.11 H Est Glomerular Filtrat Rate mL/min Glucose Level 175 Calcium Level 8.0 L Bedside Glucose 218 183 152 Test 01/11/19 04:30 01/11/19 05:08 01/11/19 07:00 01/11/19 08:11 White Blood Count 23.8 H Red Blood Count 2.58 L Hemoglobin 7.9 L Hematocrit 25.6 L Mean Corpuscular 99.2 Volume Mean Corpuscular 30.6 Hemoglobin Mean Corpuscular 30.9 L Hemoglobin Concen t Red Cell 18.1 H Distribution Width Platelet Count 321 Mean Platelet 10.1 Volume Immature 3.100 H Granulocytes % Neutrophils % 86.8 H Lymphocytes % 5.8 L Monocytes % 4.1 Eosinophils % 0.0 Basophils % 0.2 Nucleated Red 1.1 H Blood Cells % Immature 0.730 H Granulocytes # Neutrophils # 20.6 H Lymphocytes # 1.4 Monocytes # 1.0 H Eosinophils # 0.0 Basophils # 0.1 Nucleated Red 0.3 H Blood Cells # Sodium Level 144 Potassium Level 4.0 Chloride Level 106 Carbon Dioxide 25 Level Anion Gap 13 Blood Urea 74 H Nitrogen Creatinine 3.56 H Est Glomerular Filtrat Rate mL/min Glucose Level 144 Calcium Level 8.0 L Phosphorus Level 7.0 H Magnesium Level 2.3 Bedside Glucose 157 126 Blood Gas Blood arterial Specimen Source Arterial Blood 01/11/2019 9:07:3 Date Drawn 7 AM Arterial Blood pH 7.340 L (Temp corrected) Arterial Blood 40.4 pCO2 (Temp correct) Arterial Blood 70.0 L pO2 (Temp corrected) Arterial Blood 21.3 L HCO3 Arterial Blood -4.1 L Base Excess Arterial Blood 91.5 L Oxygen Saturation Francis Test ACCEPTAB Arterial Blood Left Radial Gas Puncture Site Arterial 0.1 Blood Carboxyhemo globin Arterial Blood 0.5 Methemoglobin Blood Gas A-a O2 161.5 H Differential Oxyhemoglobin 91.0 L Percent Blood Gas 37.0 Temperature Blood Gas NASAL CANNULA Modality FiO2 39.0 Blood Gas DT Notified Whom Blood Gas 01/11/2019 9:20:3 Notified Time 0 AM Test 01/11/19 11:01 01/11/19 13:32 White Blood Count 23.9 H Red Blood Count 2.53 L Hemoglobin 7.7 L Hematocrit 25.2 L Mean Corpuscular 99.6 Volume Mean Corpuscular 30.4 Hemoglobin Mean Corpuscular 30.6 L Hemoglobin Concen t Red Cell 18.3 H Distribution Width Platelet Count 306 Mean Platelet 10.0 Volume Immature 3.000 H Granulocytes % Neutrophils % 87.1 H Lymphocytes % 5.7 L Monocytes % 4.0 Eosinophils % 0.0 Basophils % 0.2 Nucleated Red 1.1 H Blood Cells % Immature 0.720 H Granulocytes # Neutrophils # 20.8 H Lymphocytes # 1.4 Monocytes # 1.0 H Eosinophils # 0.0 Basophils # 0.1 Nucleated Red 0.3 H Blood Cells # Bedside Glucose 136 Medications Medications Current Medications IV Flush (NS 3 ml) 3 ml PER PROTOCOL IV ; Start 12/28/18 at 04:30 Ondansetron HCl (Zofran Inj) 4 mg Q6H PRN IV NAUSEA/VOMITING Last administered on 01/04/19at 08:54; Admin Dose 4 MG; Start 12/28/18 at 04:30 Aspirin (Aspirin) 81 mg DAILY PO Last administered on 01/11/19at 09:18; Admin Dose 81 MG; Start 12/28/18 at 09:00 Nitroglycerin (Nitroglycerin (Sl Tab) 0.4 Mg) 1 tab Q5M PRN SL .CHEST PAIN Last administered on 01/10/19at 08:03; Admin Dose 1 TAB; Start 12/28/18 at 04:30 Diagnostic Test (Pha) (Accu-Chek) 1 ea 02 XX Last administered on 01/11/19at 01:24; Admin Dose 1 EA; Start 12/29/18 at 02:00 Miscellaneous Information 1 ea NOTE XX ; Start 12/28/18 at 05:00 Glucose (Glutose) 15 gm Q15M PRN PO DECREASED GLUCOSE; Start 12/28/18 at 05:00 Glucose (Glutose) 22.5 gm Q15M PRN PO DECREASED GLUCOSE; Start 12/28/18 at 05:00 Dextrose (D50w Syringe) 25 ml Q15M PRN IV DECREASED GLUCOSE; Start 12/28/18 at 05:00 Dextrose (D50w Syringe) 50 ml Q15M PRN IV DECREASED GLUCOSE; Start 12/28/18 at 05:00 Glucagon (Glucagen) 1 mg Q15M PRN IM DECREASED GLUCOSE; Start 12/28/18 at 05:00 Glucose (Glutose) 15 gm Q15M PRN BUCCAL DECREASED GLUCOSE; Start 12/28/18 at 05:00 Atorvastatin Calcium (Lipitor) 80 mg HS PO Last administered on 01/10/19 20:33; Admin Dose 80 MG; Start 12/29/18 at 21:00 Phenol (Cepastat Lozenge) 1 lozenge Q1H PRN MT COUGH Last administered on 01/03/19 13:05; Admin Dose 1 LOZENGE; Start 12/28/18 at 17:30 Escitalopram Oxalate (Lexapro) 10 mg DAILY PO Last administered on 01/11/19 09:18; Admin Dose 10 MG; Start 12/29/18 at 09:30 Risedronate (Actonel) 35 mg Tu@AC BREAKFAST PO ; Start 12/30/18 at 07:00 Mirtazapine (Remeron) 15 mg HS PO Last administered on 01/10/19 20:33; Admin Dose 15 MG; Start 12/29/18 at 21:00 Pantoprazole (Protonix Tab) 40 mg DAILY@06 PO Last administered on 01/11/19 05:08; Admin Dose 40 MG; Start 12/30/18 at 06:00 Docusate Sodium (Colace) 100 mg BID PO Last administered on 01/11/19 09:20; Admin Dose 100 MG; Start 12/29/18 at 18:30 Clopidogrel Bisulfate (plaVIX) 75 mg DAILY PO Last administered on 01/11/19 09:18; Admin Dose 75 MG; Start 01/03/19 at 09:00 Morphine Sulfate (morphine) 1 mg Q1H PRN IV SEVERE PAIN LEVEL 7-10 Last administered on 01/11/19 03:49; Admin Dose 1 MG; Start 01/04/19 at 16:00 Polyethylene Glycol (Miralax) 17 gm BID PRN PO CONSTIPATION Last administered on 01/06/19 13:44; Admin Dose 17 GM; Start 01/06/19 at 13:00 Carvedilol (Coreg) 25 mg BID PO Last administered on 01/11/19 09:20; Admin Dose 25 MG; Start 01/06/19 at 21:00 IV Flush (NS 10 ml) 10 ml PRN PRN IV flush; Start 01/06/19 at 18:30 Bisacodyl (Dulcolax Supp) 10 mg DAILY PRN [place] CONSTIPATION; Start 01/06/19 at 19:00 Insulin Aspart (Novolog Insulin Pen) NOVOLOG *MILD* ALGORI... Q4 SC Last administered on 01/11/19 05:12; Admin Dose 1 UNIT; Start 01/07/19 at 05:00 Isosorbide Mononitrate (Imdur) 60 mg DAILY PO Last administered on 01/11/19at 09:19; Admin Dose 60 MG; Start 01/08/19 at 09:00 Albuterol/ Ipratropium (Duoneb) 3 ml Q4H RESP THERAPY PRN HHN SHORTNESS OF BREATH Last administered on 01/11/19at 11:45; Admin Dose 3 ML; Start 01/07/19 at 20:00 Sodium Chloride 1,000 ml @ 40 mls/hr Q24H IV Last administered on 01/11/19at 06:29; Admin Dose 75 MLS/HR; Start 01/10/19 at 17:30 Bumetanide 25 mg/ Dextrose 250 ml @ 10 mls/hr Q24H IV Last administered on 12/24 12:26; Admin Dose 10 MLS/HR; Start 01/11/19 at 12:00 Mihir Mosher DO January 11, 2019 14:03
[2019-01-11] MEDS: POLYETHYLENE GLYCOL 17 GM PACKET PO PRN (18:05)
[2019-01-11] MEDS: MIRTAZAPINE 15 MG TAB PO SCH (20:27)
[2019-01-11] MEDS: ATORVASTATIN 80 MG TAB PO SCH (20:27)
[2019-01-12] VITALS (25 sets, daily range): BP systolic 101–123; BP diastolic 33–87; PULSE 75–88; RESP 19–32
[2019-01-12] MEDS: INSULIN ASPART [NOVOLOG] 3 ML PEN SC SCH ×6 (01:00→21:00)
[2019-01-12] MEDS: ACCU-CHEK XX SCH (01:24)
[2019-01-12] MEDS: SOD CHLORIDE 0.45% 1,000 ML IV SCH (04:23)
[2019-01-12] MEDS: PANTOPRAZOLE (EC) 40 MG TAB PO SCH (05:31)
--- NOTE | 2019-01-12 08:04 | CONS ---
Assessment/Plan Assessment/Plan Hospital Course (Demo Recall) 83 yo with STEMI/new LBBB, with severe 2V CAD, culprit lesion is LAD with SHERIN 2 flow on cath, with ischemic cardiomyopathy, lvef 40-45% and severe aortic regurgitation. LOUIE negative for vegetations. Course complicated by acute heart failure, acute renal failure, and recurrent chest/epigastric. Underwent urgent PCI to mid LAD on Thursday 01/04, and staged PCI of the RCA on . Now with acute renal insufficiency, with creatinine plateaued. 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 Stopping Imdur. Bumex drip and renal management per nephrology PT/OT She could be transferred from the unit to a telemetry bed Discharge planning Consultation Date/Type/Reason Admit Date/Time December 28, 2018 at 03:23 Initial Consult Date 12/28/18 Type of Consult Cardiology Requesting Provider: KRYSTAL BERNARD Date/Time of Note DATE: 01/12/19 TIME: 07:45 24 HR Interval Summary Free Text/Dictation Over the weekend, patient became hypotensive and medications adjusted, coreg not given last night for sbp 98. At present, resting comfortably, at bedside, states she's tired of being in the hospital. Patient still with some epigastric discomfort, feels that she has not moved her bowels well for one week. Manju KNOX served as our game moderator. Exam/Review of Systems Vital Signs Vitals Vital Signs Date Temp Pulse Resp B/P (MAP) Pulse Ox O2 O2 Flow FiO2 Time Delivery Rate 01/12/19 78 28 110/44 98 Nasal 06:00 (66) Cannula 01/12/19 6.0 05:30 01/12/19 98.2 05:00 01/12/19 50 01:07 Intake and Output 01/11/19 01/11/19 01/12/19 1515:00 23:00 07:00 IntakeIntake Total 705 ml 1150 ml 310 ml OutputOutput Total 10 ml 80 ml 200 ml BalanceBalance 695 ml 1070 ml 110 ml Exam Constitutional: alert, well developed Psych: nl mood/affect Head: normocephalic, atraumatic Eyes: EOMI, nl lids ENMT: nl external ears & nose Neck: supple; No jvd, No bruits Respiratory: clear to auscultation Cardiovascular: regular rate and rhythm, murmurs/extra sounds Gastrointestinal: soft, distended Musculoskeletal: nl extremities to inspection Extremities: edema (2+ both legs) Neurological: nl speech Skin: nl turgor Labs Result Diagram: 01/12/19 0436 01/12/19 0436 Results 24hrs Laboratory Tests Test 01/11/19 08:11 01/11/19 11:01 01/11/19 13:32 01/11/19 17:33 Bedside Glucose 126 136 172 White Blood Count 23.9 H Red Blood Count 2.53 L Hemoglobin 7.7 L Hematocrit 25.2 L Mean Corpuscular 99.6 Volume Mean Corpuscular 30.4 Hemoglobin Mean Corpuscular 30.6 L Hemoglobin Concent Red Cell 18.3 H Distribution Width Platelet Count 306 Mean Platelet Volume 10.0 Immature 3.000 H Granulocytes % Neutrophils % 87.1 H Lymphocytes % 5.7 L Monocytes % 4.0 Eosinophils % 0.0 Basophils % 0.2 Nucleated Red Blood 1.1 H Cells % Immature 0.720 H Granulocytes # Neutrophils # 20.8 H Lymphocytes # 1.4 Monocytes # 1.0 H Eosinophils # 0.0 Basophils # 0.1 Nucleated Red Blood 0.3 H Cells # Test 01/11/19 20:26 01/12/19 01:23 01/12/19 04:36 01/12/19 05:29 Bedside Glucose 172 130 113 White Blood Count 24.9 H Red Blood Count 3.17 #L Hemoglobin 9.4 #L Hematocrit 30.3 #L Mean Corpuscular 95.6 Volume Mean Corpuscular 29.7 Hemoglobin Mean Corpuscular 31.0 L Hemoglobin Concent Red Cell 19.5 H Distribution Width Platelet Count 307 Mean Platelet Volume 10.5 H Immature 2.200 H Granulocytes % Neutrophils % 88.7 H Lymphocytes % 5.5 L Monocytes % 2.5 Eosinophils % 0.9 Basophils % 0.2 Nucleated Red Blood 1.2 H Cells % Immature 0.540 H Granulocytes # Neutrophils # 22.1 H Lymphocytes # 1.4 Monocytes # 0.6 Eosinophils # 0.2 Basophils # 0.1 Nucleated Red Blood 0.3 H Cells # Sodium Level 139 Potassium Level 3.6 Chloride Level 104 Carbon Dioxide Level 22 Anion Gap 13 Blood Urea Nitrogen 84 H Creatinine 3.43 H Est Glomerular Filtrat Rate mL/min Glucose Level 88 # Calcium Level 7.8 L Phosphorus Level 6.5 H Medications Medications Current Medications IV Flush (NS 3 ml) 3 ml PER PROTOCOL IV ; Start 12/28/18 at 04:30 Ondansetron HCl (Zofran Inj) 4 mg Q6H PRN IV NAUSEA/VOMITING Last administered on 01/04/19at 08:54; Admin Dose 4 MG; Start 12/28/18 at 04:30 Aspirin (Aspirin) 81 mg DAILY PO Last administered on 01/11/19at 09:18; Admin Dose 81 MG; Start 12/28/18 at 09:00 Nitroglycerin (Nitroglycerin (Sl Tab) 0.4 Mg) 1 tab Q5M PRN SL .CHEST PAIN Last administered on 01/10/19at 08:03; Admin Dose 1 TAB; Start 12/28/18 at 04:30 Diagnostic Test (Pha) (Accu-Chek) 1 ea 02 XX Last administered on 01/12/19at 01:24; Admin Dose 1 EA; Start 12/29/18 at 02:00 Miscellaneous Information 1 ea NOTE XX ; Start 12/28/18 at 05:00 Glucose (Glutose) 15 gm Q15M PRN PO DECREASED GLUCOSE; Start 12/28/18 at 05:00 Glucose (Glutose) 22.5 gm Q15M PRN PO DECREASED GLUCOSE; Start 12/28/18 at 05:00 Dextrose (D50w Syringe) 25 ml Q15M PRN IV DECREASED GLUCOSE; Start 12/28/18 at 05:00 Dextrose (D50w Syringe) 50 ml Q15M PRN IV DECREASED GLUCOSE; Start 12/28/18 at 05:00 Glucagon (Glucagen) 1 mg Q15M PRN IM DECREASED GLUCOSE; Start 12/28/18 at 05:00 Glucose (Glutose) 15 gm Q15M PRN BUCCAL DECREASED GLUCOSE; Start 12/28/18 at 05:00 Atorvastatin Calcium (Lipitor) 80 mg HS PO Last administered on 01/11/19 20:27 ; Admin Dose 80 MG; Start 12/29/18 at 21:00 Phenol (Cepastat Lozenge) 1 lozenge Q1H PRN MT COUGH Last administered on 01/03/19 13:05; Admin Dose 1 LOZENGE; Start 12/28/18 at 17:30 Escitalopram Oxalate (Lexapro) 10 mg DAILY PO Last administered on 01/11/19 09:18; Admin Dose 10 MG; Start 12/29/18 at 09:30 Risedronate (Actonel) 35 mg Tu@AC BREAKFAST PO ; Start 12/30/18 at 07:00 Mirtazapine (Remeron) 15 mg HS PO Last administered on 01/11/19 20:27; Admin Dose 15 MG; Start 12/29/18 at 21:00 Pantoprazole (Protonix Tab) 40 mg DAILY@06 PO Last administered on 01/12/19 05:31; Admin Dose 40 MG; Start 12/30/18 at 06:00 Docusate Sodium (Colace) 100 mg BID PO Last administered on 01/11/19 20:27; Admin Dose 100 MG; Start 12/29/18 at 18:30 Clopidogrel Bisulfate (plaVIX) 75 mg DAILY PO Last administered on 01/11/19 09:18; Admin Dose 75 MG; Start 01/03/19 at 09:00 Morphine Sulfate (morphine) 1 mg Q1H PRN IV SEVERE PAIN LEVEL 7-10 Last administered on 01/11/19 03:49; Admin Dose 1 MG; Start 01/04/19 at 16:00 Polyethylene Glycol (Miralax) 17 gm BID PRN PO CONSTIPATION Last administered on 01/11/19 18:05; Admin Dose 17 GM; Start 01/06/19 at 13:00 IV Flush (NS 10 ml) 10 ml PRN PRN IV flush; Start 01/06/19 at 18:30 Bisacodyl (Dulcolax Supp) 10 mg DAILY PRN [place] CONSTIPATION; Start 01/06/19 at 19:00 Insulin Aspart (Novolog Insulin Pen) NOVOLOG *MILD* ALGORI... Q4 SC Last administered on 01/11/19 20:29; Admin Dose 1 UNIT; Start 01/07/19 at 05:00 Albuterol/ Ipratropium (Duoneb) 3 ml Q4H RESP THERAPY PRN HHN SHORTNESS OF BREATH Last administered on 01/11/19 15:42; Admin Dose 3 ML; Start 01/07/19 at 20:00 Sodium Chloride 1,000 ml @ 40 mls/hr Q24H IV Last administered on 01/12/19 04:23; Admin Dose 40 MLS/HR; Start 01/10/19 at 17:30 Bumetanide 25 mg/ Dextrose 250 ml @ 10 mls/hr Q24H IV Last administered on 01/11/19 12:26; Admin Dose 10 MLS/HR; Start 01/11/19 at 12:00 Carvedilol (Coreg) 12.5 mg BID PO ; Start 01/11/19 at 21:00 RODRIGUEZ GARZA January 12, 2019 07:55
[2019-01-12] MEDS ORDERED: ISOSORBIDE MONONITRATE(SR)30 MG TAB PO SCH (09:00)
[2019-01-12] MEDS: ASPIRIN 81 MG TAB PO SCH (09:54)
[2019-01-12] MEDS: DOCUSATE SODIUM 100 MG CAP PO SCH ×2 (09:54→21:55)
[2019-01-12] MEDS: ESCITALOPRAM 10 MG TAB PO SCH (09:54)
[2019-01-12] MEDS: POLYETHYLENE GLYCOL 17 GM PACKET PO PRN (09:54)
[2019-01-12] MEDS: CLOPIDOGREL 75 MG TAB PO SCH (09:55)
--- NOTE | 2019-01-12 11:10 | CONS ---
Consult Date/Type/Reason Admit Date/Time December 28, 2018 at 03:23 Initial Consult Date 01/03/19 Type of Consult Pulmonary Requesting Provider: KRYSTAL BERNARD Date/Time of Note DATE: 01/12/19 TIME: 11:07 Objective Vital Signs Date Temp Pulse Resp B/P (MAP) Pulse Ox O2 O2 Flow FiO2 Time Delivery Rate 01/12/19 79 08:00 01/12/19 28 110/44 98 Nasal 06:00 (66) Cannula 01/12/19 6.0 05:30 01/12/19 98.2 05:00 01/12/19 50 01:07 Intake and Output 01/11/19 01/11/19 01/12/19 1515:00 23:00 07:00 IntakeIntake Total 705 ml 1150 ml 310 ml OutputOutput Total 10 ml 80 ml 200 ml BalanceBalance 695 ml 1070 ml 110 ml Vent Setting Fraction of Inspired Oxygen pe: 30 Results/Medications Result Diagram: 01/12/19 0436 01/12/19 0436 Results 24 hrs Laboratory Tests Test 01/11/19 13:32 01/11/19 17:33 01/11/19 20:26 01/12/19 01:23 Bedside Glucose 136 172 172 130 Test 01/12/19 04:36 01/12/19 05:29 01/12/19 08:15 White Blood Count 24.9 H Red Blood Count 3.17 #L Hemoglobin 9.4 #L Hematocrit 30.3 #L Mean Corpuscular 95.6 Volume Mean Corpuscular 29.7 Hemoglobin Mean Corpuscular 31.0 L Hemoglobin Concent Red Cell 19.5 H Distribution Width Platelet Count 307 Mean Platelet Volume 10.5 H Immature 2.200 H Granulocytes % Neutrophils % 88.7 H Lymphocytes % 5.5 L Monocytes % 2.5 Eosinophils % 0.9 Basophils % 0.2 Nucleated Red Blood 1.2 H Cells % Immature 0.540 H Granulocytes # Neutrophils # 22.1 H Lymphocytes # 1.4 Monocytes # 0.6 Eosinophils # 0.2 Basophils # 0.1 Nucleated Red Blood 0.3 H Cells # Sodium Level 139 Potassium Level 3.6 Chloride Level 104 Carbon Dioxide Level 22 Anion Gap 13 Blood Urea Nitrogen 84 H Creatinine 3.43 H Est Glomerular Filtrat Rate mL/min Glucose Level 88 # Calcium Level 7.8 L Phosphorus Level 6.5 H Bedside Glucose 113 101 Medications Current Medications IV Flush (NS 3 ml) 3 ml PER PROTOCOL IV ; Start 12/28/18 at 04:30 Ondansetron HCl (Zofran Inj) 4 mg Q6H PRN IV NAUSEA/VOMITING Last administered on 01/04/19 08:54; Admin Dose 4 MG; Start 12/28/18 at 04:30 Aspirin (Aspirin) 81 mg DAILY PO Last administered on 01/12/19at 09:54; Admin Dose 81 MG; Start 12/28/18 at 09:00 Nitroglycerin (Nitroglycerin (Sl Tab) 0.4 Mg) 1 tab Q5M PRN SL .CHEST PAIN Last administered on 01/10/19 08:03; Admin Dose 1 TAB; Start 12/28/18 at 04:30 Diagnostic Test (Pha) (Accu-Chek) 1 ea 02 XX Last administered on 01/12/19at 01:24; Admin Dose 1 EA; Start 12/29/18 at 02:00 Miscellaneous Information 1 ea NOTE XX ; Start 12/28/18 at 05:00 Glucose (Glutose) 15 gm Q15M PRN PO DECREASED GLUCOSE; Start 12/28/18 at 05:00 Glucose (Glutose) 22.5 gm Q15M PRN PO DECREASED GLUCOSE; Start 12/28/18 at 05:00 Dextrose (D50w Syringe) 25 ml Q15M PRN IV DECREASED GLUCOSE; Start 12/28/18 at 05:00 Dextrose (D50w Syringe) 50 ml Q15M PRN IV DECREASED GLUCOSE; Start 12/28/18 at 05:00 Glucagon (Glucagen) 1 mg Q15M PRN IM DECREASED GLUCOSE; Start 12/28/18 at 05:00 Glucose (Glutose) 15 gm Q15M PRN BUCCAL DECREASED GLUCOSE; Start 12/28/18 at 05:00 Atorvastatin Calcium (Lipitor) 80 mg HS PO Last administered on 01/11/19at 20:27; Admin Dose 80 MG; Start 12/29/18 at 21:00 Phenol (Cepastat Lozenge) 1 lozenge Q1H PRN MT COUGH Last administered on 01/03/19at 13:05; Admin Dose 1 LOZENGE; Start 12/28/18 at 17:30 Escitalopram Oxalate (Lexapro) 10 mg DAILY PO Last administered on 01/12/19 09:54; Admin Dose 10 MG; Start 12/29/18 at 09:30 Risedronate (Actonel) 35 mg Tu@AC BREAKFAST PO ; Start 12/30/18 at 07:00 Mirtazapine (Remeron) 15 mg HS PO Last administered on 01/11/19 20:27; Admin Dose 15 MG; Start 12/29/18 at 21:00 Pantoprazole (Protonix Tab) 40 mg DAILY@06 PO Last administered on 01/12/19 05:31; Admin Dose 40 MG; Start 12/30/18 at 06:00 Docusate Sodium (Colace) 100 mg BID PO Last administered on 01/12/19 09:54; Admin Dose 100 MG; Start 12/29/18 at 18:30 Clopidogrel Bisulfate (plaVIX) 75 mg DAILY PO Last administered on 01/12/19 09:55; Admin Dose 75 MG; Start 01/03/19 at 09:00 Morphine Sulfate (morphine) 1 mg Q1H PRN IV SEVERE PAIN LEVEL 7-10 Last administered on 01/11/19 03:49; Admin Dose 1 MG; Start 01/04/19 at 16:00 Polyethylene Glycol (Miralax) 17 gm BID PRN PO CONSTIPATION Last administered on 01/12/19 09:54; Admin Dose 17 GM; Start 01/06/19 at 13:00 IV Flush (NS 10 ml) 10 ml PRN PRN IV flush; Start 01/06/19 at 18:30 Bisacodyl (Dulcolax Supp) [address] CONSTIPATION; Start 01/06/19 at 19:00 Insulin Aspart (Novolog Insulin Pen) NOVOLOG *MILD* ALGORI... Q4 SC Last administered on 01/11/19 20:29; Admin Dose 1 UNIT; Start 01/07/19 at 05:00 Albuterol/ Ipratropium (Duoneb) 3 ml Q4H RESP THERAPY PRN HHN SHORTNESS OF BREATH Last administered on 01/11/19 15:42; Admin Dose 3 ML; Start 01/07/19 at 20:00 Sodium Chloride 1,000 ml @ 40 mls/hr Q24H IV Last administered on 5/20/19at 04:23; Admin Dose 40 MLS/HR; Start 01/10/19 at 17:30 Bumetanide 25 mg/ Dextrose 250 ml @ 10 mls/hr Q24H IV Last administered on 01/11/19at 12:26; Admin Dose 10 MLS/HR; Start 01/11/19 at 12:00 Carvedilol (Coreg) 12.5 mg BID PO Last administered on 01/12/19at 09:55; Admin Dose 12.5 MG; Start 01/11/19 at 21:00 Assessment/Plan Hospital Course (Demo Recall) iMP: 1. s/p Acute MN--now with unstable angina 2. CHF ongoing pulmonary edema 3. Hypercapnic Resp Insufficiency 4. Severe CAD 5. Bacteremia 6. Acute and CKD, likely component of contrast nephropathy. worsening renal failure with metabolic acidosis. 7. Possible aspiration pneumonia. Right upper lobe infiltrate 8. Encephalopathy toxic metabolic, improved today. 9. Persistent leukocytosis RECS: 1. Improved urine output with Bumex drip.. 2. Follow I/O's and renal function 3. Aspiration precautions. CT chest to evaluate right upper lobe infiltrate today. 4. BiPAP prn, 5. Continue NTG gtt as needed. 6. Cardiac recommendations post catheterization 7. Abx as per ID 35 min cc time Prognosis remains guarded. TONE REID MD, [facility] January 12, 2019 11:10
--- NOTE | 2019-01-12 11:31 | PN ---
Date/Time of Note Date/Time of Note DATE: 01/12/19 TIME: 11:28 Assessment/Plan VTE Prophylaxis Risk score (from Ns)>0 risk: 12 SCD applied (from [facility] [place] Yes Pharmacological prophylaxis: NA/contraindicated Pharm contraindication: renal impairment Lines/Catheters IV Catheter Type (from [facility]): Peripheral IV Assessment/Plan Hospital Course 83 yo [place]vian-speaking woman with history of dementia, hypertension, dyslipidemia, severe MR and aortic stenosis, arrhythmia who presents with ACS an d multi-vessel coronary artery disease. #Acute NE #CAD - STEMI with LBBB - patient had cardiac cath on 12/28, found with: Severe 2 vessel CAD, LAD and RCA, LAD is culprit with francine 2 flow, and cardiomyopathy with LVEF 35%. Again patient also with severe aortic regurgitation and at least moderate mitral regurgitation. - Continue, Lipitor, beta-geovanny, statin, Plavix and Imdur - Now s/p PCI to LAD (01/04) and RCA (01/08) - She does also have severe AI, may need TAVR in the future. #Acute CHF exacerbation - likely due to acute ischemic CAD/STEMI - currently on IV lasix -Status post nitro gtt #Bacteremia: 2 out of 2 bottles positive for coagulase-negative staph - Finished 7 days of zosyn+vanco. -Short course of antibiotics given due to drug rash -Repeat blood cultures are negative #Rash - Erythematous, macular rash on lower abdomen and part of chest noted 01/07 - May be related to transfusion, or drug reaction. - Got decadon, benadryl, pepcid without significant improvement. - Stopped zosyn and vanco, this may have been a delayed drug reaction. #WILLIAM: Patient was having poor urine output yesterday but renal function has improved and urine output has increased -Patient was started on a Bumex drip yesterday and renal function appears to have improved -Nephrology following -No CRISTINO or ARB at this time #Acute on chronic encephalopathy -Patient with baseline dementia but mentation has worsened likely secondary to delirium and steroids -Have discontinued steroids and mentation has somewhat improved Prophylaxis: SCDs Result Diagram: 01/12/19 0436 01/12/19 0436 Results 24hrs Laboratory Tests Test 01/11/19 13:32 01/11/19 17:33 01/11/19 20:26 01/12/19 01:23 Bedside Glucose 136 172 172 130 Test 01/12/19 04:36 01/12/19 05:29 01/12/19 08:15 White Blood Count 24.9 H Red Blood Count 3.17 #L Hemoglobin 9.4 #L Hematocrit 30.3 #L Mean Corpuscular 95.6 Volume Mean Corpuscular 29.7 Hemoglobin Mean Corpuscular 31.0 L Hemoglobin Concent Red Cell 19.5 H Distribution Width Platelet Count 307 Mean Platelet Volume 10.5 H Immature 2.200 H Granulocytes % Neutrophils % 88.7 H Lymphocytes % 5.5 L Monocytes % 2.5 Eosinophils % 0.9 Basophils % 0.2 Nucleated Red Blood 1.2 H Cells % Immature 0.540 H Granulocytes # Neutrophils # 22.1 H Lymphocytes # 1.4 Monocytes # 0.6 Eosinophils # 0.2 Basophils # 0.1 Nucleated Red Blood 0.3 H Cells # Sodium Level 139 Potassium Level 3.6 Chloride Level 104 Carbon Dioxide Level 22 Anion Gap 13 Blood Urea Nitrogen 84 H Creatinine 3.43 H Est Glomerular Filtrat Rate mL/min Glucose Level 88 # Calcium Level 7.8 L Phosphorus Level 6.5 H Bedside Glucose 113 101 Subjective 24 Hr Interval Summary Constitutional: disoriented Exam/Review of Systems Exam Vitals Vital Signs Date Temp Pulse Resp B/P (MAP) Pulse Ox O2 O2 Flow FiO2 Time Delivery Rate 01/12/19 79 08:00 01/12/19 28 110/44 98 Nasal 06:00 (66) Cannula 01/12/19 6.0 05:30 01/12/19 98.2 05:00 01/12/19 50 01:07 Intake and Output 01/11/19 01/11/19 01/12/19 1515:00 23:00 07:00 IntakeIntake Total 705 ml 1150 ml 310 ml OutputOutput Total 10 ml 80 ml 200 ml BalanceBalance 695 ml 1070 ml 110 ml Psych: confusion Respiratory: clear to auscultation Cardiovascular: regular rate and rhythm Gastrointestinal: soft; No distended Musculoskeletal: nl extremities to inspection Results Results 24hrs Laboratory Tests Test 01/11/19 13:32 01/11/19 17:33 01/11/19 20:26 01/12/19 01:23 Bedside Glucose 136 172 172 130 Test 01/12/19 04:36 01/12/19 05:29 01/12/19 08:15 White Blood Count 24.9 H Red Blood Count 3.17 #L Hemoglobin 9.4 #L Hematocrit 30.3 #L Mean Corpuscular 95.6 Volume Mean Corpuscular 29.7 Hemoglobin Mean Corpuscular 31.0 L Hemoglobin Concent Red Cell 19.5 H Distribution Width Platelet Count 307 Mean Platelet Volume 10.5 H Immature 2.200 H Granulocytes % Neutrophils % 88.7 H Lymphocytes % 5.5 L Monocytes % 2.5 Eosinophils % 0.9 Basophils % 0.2 Nucleated Red Blood 1.2 H Cells % Immature 0.540 H Granulocytes # Neutrophils # 22.1 H Lymphocytes # 1.4 Monocytes # 0.6 Eosinophils # 0.2 Basophils # 0.1 Nucleated Red Blood 0.3 H Cells # Sodium Level 139 Potassium Level 3.6 Chloride Level 104 Carbon Dioxide Level 22 Anion Gap 13 Blood Urea Nitrogen 84 H Creatinine 3.43 H Est Glomerular Filtrat Rate mL/min Glucose Level 88 # Calcium Level 7.8 L Phosphorus Level 6.5 H Bedside Glucose 113 101 Medications Medication Current Medications IV Flush (NS 3 ml) 3 ml PER PROTOCOL IV ; Start 12/28/18 at 04:30 Ondansetron HCl (Zofran Inj) 4 mg Q6H PRN IV NAUSEA/VOMITING Last administered on 01/04/19at 08:54; Admin Dose 4 MG; Start 12/28/18 at 04:30 Aspirin (Aspirin) 81 mg DAILY PO Last administered on 01/12/19at 09:54; Admin Dose 81 MG; Start 12/28/18 at 09:00 Nitroglycerin (Nitroglycerin (Sl Tab) 0.4 Mg) 1 tab Q5M PRN SL .CHEST PAIN Last administered on 01/10/19at 08:03; Admin Dose 1 TAB; Start 12/28/18 at 04:30 Diagnostic Test (Pha) (Accu-Chek) 1 ea 02 XX Last administered on 01/12/19at 01:24; Admin Dose 1 EA; Start 12/29/18 at 02:00 Miscellaneous Information 1 ea NOTE XX ; Start 12/28/18 at 05:00 Glucose (Glutose) 15 gm Q15M PRN PO DECREASED GLUCOSE; Start 12/28/18 at 05:00 Glucose (Glutose) 22.5 gm Q15M PRN PO DECREASED GLUCOSE; Start 12/28/18 at 05:00 Dextrose (D50w Syringe) 25 ml Q15M PRN IV DECREASED GLUCOSE; Start 12/28/18 at 05:00 Dextrose (D50w Syringe) 50 ml Q15M PRN IV DECREASED GLUCOSE; Start 12/28/18 at 05:00 Glucagon (Glucagen) 1 mg Q15M PRN IM DECREASED GLUCOSE; Start 12/28/18 at 05:00 Glucose (Glutose) 15 gm Q15M PRN BUCCAL DECREASED GLUCOSE; Start 12/28/18 at 05:00 Atorvastatin Calcium (Lipitor) 80 mg HS PO Last administered on 01/11/19 20:27; Admin Dose 80 MG; Start 12/29/18 at 21:00 Phenol (Cepastat Lozenge) 1 lozenge Q1H PRN MT COUGH Last administered on 01/03/19at 13:05; Admin Dose 1 LOZENGE; Start 12/28/18 at 17:30 Escitalopram Oxalate (Lexapro) 10 mg DAILY PO Last administered on 01/12/19 09:54; Admin Dose 10 MG; Start 12/29/18 at 09:30 Risedronate (Actonel) 35 mg Tu@AC BREAKFAST PO ; Start 12/30/18 at 07:00 Mirtazapine (Remeron) 15 mg HS PO Last administered on 01/11/19 20:27; Admin Dose 15 MG; Start 12/29/18 at 21:00 Pantoprazole (Protonix Tab) 40 mg DAILY@06 PO Last administered on 01/12/19 05:31; Admin Dose 40 MG; Start 12/30/18 at 06:00 Docusate Sodium (Colace) 100 mg BID PO Last administered on 01/12/19 09:54; Admin Dose 100 MG; Start 12/29/18 at 18:30 Clopidogrel Bisulfate (plaVIX) 75 mg DAILY PO Last administered on 01/12/19 09:55; Admin Dose 75 MG; Start 01/03/19 at 09:00 Morphine Sulfate (morphine) 1 mg Q1H PRN IV SEVERE PAIN LEVEL 7-10 Last administered on 01/11/19at 03:49; Admin Dose 1 MG; Start 01/04/19 at 16:00 Polyethylene Glycol (Miralax) 17 gm BID PRN PO CONSTIPATION Last administered on 01/12/19 09:54; Admin Dose 17 GM; Start 01/06/19 at 13:00 IV Flush (NS 10 ml) 10 ml PRN PRN IV flush; Start 01/06/19 at 18:30 Bisacodyl (Dulcolax Supp) 10 mg DAILY PRN MS CONSTIPATION; Start 01/06/19 at 19:00 Insulin Aspart (Novolog Insulin Pen) NOVOLOG *MILD* ALGORI... Q4 SC Last administered on 01/11/19 20:29; Admin Dose 1 UNIT; Start 01/07/19 at 05:00 Albuterol/ Ipratropium (Duoneb) 3 ml Q4H RESP THERAPY PRN HHN SHORTNESS OF BREATH Last administered on 01/11/19 15:42; Admin Dose 3 ML; Start 01/07/19 at 20:00 Sodium Chloride 1,000 ml @ 40 mls/hr Q24H IV Last administered on 01/12/19 04:23; Admin Dose 40 MLS/HR; Start 01/10/19 at 17:30 Bumetanide 25 mg/ Dextrose 250 ml @ 10 mls/hr Q24H IV Last administered on 01/11/19 12:26; Admin Dose 10 MLS/HR; Start 01/11/19 at 12:00 Carvedilol (Coreg) 12.5 mg BID PO Last administered on 01/12/19 09:55; Admin Dose 12.5 MG; Start 01/11/19 at 21:00 DELORIS EVANGELISTA January 12, 2019 11:31
--- NOTE | 2019-01-12 11:39 | CONS ---
Assessment/Plan Assessment/Plan Assessment/Plan (Daily) 1. Acute kidney injury on CKD III 2/2 Hemodynamics from CHF + NSTEMI - worsening renal failure 2. Hypokalemia 3. Hypernatremia 4. acute NSTEMI s/p LHC showed multivessel obstructive CAD - s/p Successful PTCA and stenting of proximal left anterior descending artery using a 3 x 20 mm Synergy drug-eluting stent on 01/04/19- s/p LHC with proximal RCA stenting on 01/08/19 5. CAD multivessel obstructive 6. Anemia of Chronic disease s/p 2 U PRBC on 01/07/19 Plan: BUN/Cr trended up to 84/3.43 , other electrolytes stable - pt responded well to IV Bumex gtt, Urine output 700 cc so far since morning, will hold off on HD plan for today, will reassess her in AM to see if she needs HD IV abx zosyn, renally dosed for bacteremia, renally dose all abx and monitor electrolytes s/p LOUIE on 12/30/18 showed severe AI and no vegetations, will follow up Consultation Date/Type/Reason Admit Date/Time December 28, 2018 at 03:23 Initial Consult Date 12/28/18 Type of Consult NEPHROLOGY Requesting Provider: KRYSTAL BERNARD Date/Time of Note DATE: 01/12/19 TIME: 11:39 Exam/Review of Systems Exam Vitals Vital Signs Date Temp Pulse Resp B/P (MAP) Pulse Ox O2 O2 Flow FiO2 Time Delivery Rate 01/12/19 79 08:00 01/12/19 28 110/44 98 Nasal 06:00 (66) Cannula 01/12/19 6.0 05:30 01/12/19 98.2 05:00 01/12/19 50 01:07 Intake and Output 01/11/19 01/11/19 01/12/19 1515:00 23:00 07:00 IntakeIntake Total 705 ml 1150 ml 310 ml OutputOutput Total 10 ml 80 ml 200 ml BalanceBalance 695 ml 1070 ml 110 ml Results Result Diagram: 01/12/19 0436 01/12/19 0436 Results 24hrs Laboratory Tests Test 01/11/19 13:32 01/11/19 17:33 01/11/19 20:26 01/12/19 01:23 Bedside Glucose 136 172 172 130 Test 01/12/19 04:36 01/12/19 05:29 01/12/19 08:15 White Blood Count 24.9 H Red Blood Count 3.17 #L Hemoglobin 9.4 #L Hematocrit 30.3 #L Mean Corpuscular 95.6 Volume Mean Corpuscular 29.7 Hemoglobin Mean Corpuscular 31.0 L Hemoglobin Concent Red Cell 19.5 H Distribution Width Platelet Count 307 Mean Platelet Volume 10.5 H Immature 2.200 H Granulocytes % Neutrophils % 88.7 H Lymphocytes % 5.5 L Monocytes % 2.5 Eosinophils % 0.9 Basophils % 0.2 Nucleated Red Blood 1.2 H Cells % Immature 0.540 H Granulocytes # Neutrophils # 22.1 H Lymphocytes # 1.4 Monocytes # 0.6 Eosinophils # 0.2 Basophils # 0.1 Nucleated Red Blood 0.3 H Cells # Sodium Level 139 Potassium Level 3.6 Chloride Level 104 Carbon Dioxide Level 22 Anion Gap 13 Blood Urea Nitrogen 84 H Creatinine 3.43 H Est Glomerular Filtrat Rate mL/min Glucose Level 88 # Calcium Level 7.8 L Phosphorus Level 6.5 H Bedside Glucose 113 101 Medications Medication Current Medications IV Flush (NS 3 ml) 3 ml PER PROTOCOL IV ; Start 12/28/18 at 04:30 Ondansetron HCl (Zofran Inj) 4 mg Q6H PRN IV NAUSEA/VOMITING Last administered on 01/04/19at 08:54; Admin Dose 4 MG; Start 12/28/18 at 04:30 Aspirin (Aspirin) 81 mg DAILY PO Last administered on 01/12/19at 09:54; Admin Dose 81 MG; Start 12/28/18 at 09:00 Nitroglycerin (Nitroglycerin (Sl Tab) 0.4 Mg) 1 tab Q5M PRN SL .CHEST PAIN Last administered on 01/10/19at 08:03; Admin Dose 1 TAB; Start 12/28/18 at 04:30 Diagnostic Test (Pha) (Accu-Chek) 1 ea 02 XX Last administered on 01/12/19at 01:24; Admin Dose 1 EA; Start 12/29/18 at 02:00 Miscellaneous Information 1 ea NOTE XX ; Start 12/28/18 at 05:00 Glucose (Glutose) 15 gm Q15M PRN PO DECREASED GLUCOSE; Start 12/28/18 at 05:00 Glucose (Glutose) 22.5 gm Q15M PRN PO DECREASED GLUCOSE; Start 12/28/18 at 05:00 Dextrose (D50w Syringe) 25 ml Q15M PRN IV DECREASED GLUCOSE; Start 12/28/18 at 05:00 Dextrose (D50w Syringe) 50 ml Q15M PRN IV DECREASED GLUCOSE; Start 12/28/18 at 05:00 Glucagon (Glucagen) 1 mg Q15M PRN IM DECREASED GLUCOSE; Start 12/28/18 at 05:00 Glucose (Glutose) 15 gm Q15M PRN BUCCAL DECREASED GLUCOSE; Start 12/28/18 at 05:00 Atorvastatin Calcium (Lipitor) 80 mg HS PO Last administered on 01/11/19 20:27; Admin Dose 80 MG; Start 12/29/18 at 21:00 Phenol (Cepastat Lozenge) 1 lozenge Q1H PRN MT COUGH Last administered on 01/03/19at 13:05; Admin Dose 1 LOZENGE; Start 12/28/18 at 17:30 Escitalopram Oxalate (Lexapro) 10 mg DAILY PO Last administered on 01/12/19at 09:54; Admin Dose 10 MG; Start 12/29/18 at 09:30 Risedronate (Actonel) 35 mg Tu@AC BREAKFAST PO ; Start 12/30/18 at 07:00 Mirtazapine (Remeron) 15 mg HS PO Last administered on 01/11/19 20:27; Admin Dose 15 MG; Start 12/29/18 at 21:00 Pantoprazole (Protonix Tab) 40 mg DAILY@06 PO Last administered on 01/12/19at 05:31; Admin Dose 40 MG; Start 12/30/18 at 06:00 Docusate Sodium (Colace) 100 mg BID PO Last administered on 01/12/19 09:54; Admin Dose 100 MG; Start 12/29/18 at 18:30 Clopidogrel Bisulfate (plaVIX) 75 mg DAILY PO Last administered on 01/12/19 09:55; Admin Dose 75 MG; Start 01/03/19 at 09:00 Morphine Sulfate (morphine) 1 mg Q1H PRN IV SEVERE PAIN LEVEL 7-10 Last administered on 01/11/19at 03:49; Admin Dose 1 MG; Start 01/04/19 at 16:00 Polyethylene Glycol (Miralax) 17 gm BID PRN PO CONSTIPATION Last administered on 01/12/19 09:54; Admin Dose 17 GM; Start 01/06/19 at 13:00 IV Flush (NS 10 ml) 10 ml PRN PRN IV flush; Start 01/06/19 at 18:30 Bisacodyl (Dulcolax Supp) 10 mg DAILY PRN RI CONSTIPATION; Start 01/06/19 at 19:00 Insulin Aspart (Novolog Insulin Pen) NOVOLOG *MILD* ALGORI... Q4 SC Last administered on 01/11/19 20:29; Admin Dose 1 UNIT; Start 01/07/19 at 05:00 Albuterol/ Ipratropium (Duoneb) 3 ml Q4H RESP THERAPY PRN HHN SHORTNESS OF BREATH Last administered on 01/11/19 15:42; Admin Dose 3 ML; Start 01/07/19 at 20:00 Sodium Chloride 1,000 ml @ 40 mls/hr Q24H IV Last administered on 01/12/19 04:23; Admin Dose 40 MLS/HR; Start 01/10/19 at 17:30 Bumetanide 25 mg/ Dextrose 250 ml @ 10 mls/hr Q24H IV Last administered on 01/11/19 12:26; Admin Dose 10 MLS/HR; Start 01/11/19 at 12:00 Carvedilol (Coreg) 12.5 mg BID PO Last administered on 01/12/19 09:55; Admin Dose 12.5 MG; Start 01/11/19 at 21:00 PATTI CALLEJAS MD January 12, 2019 11:39
[2019-01-12] MEDS ORDERED: LIDOCAINE 1% (MPF) 5 ML VIAL SC ONE (12:00)
[2019-01-12] MEDS: BUMETANIDE 25 MG in DEXTROSE 5% 150 ML IV SCH (12:15)
--- NOTE | 2019-01-12 20:08 | CONS ---
Assessment/Plan Assessment/Plan Assessment/Plan (Daily) Acute renal failure Responding to a Bumex drip We will hold off hemodialysis catheter placement for now Will place dialysis catheter when needed Consultation Date/Type/Reason Admit Date/Time December 28, 2018 at 03:23 Date of Consultation: January 12, 2019 Type of Consult Vascular surgery Reason for Consultation Renal failure Date/Time of Note DATE: 01/12/19 TIME: 20:06 Hx of Present Illness 83-year-old female with a history of dementia hypertension dyslipidemia patient also has severe mitral regurgitation aortic stenosis was admitted to the emergency room because of chest pain subsequently had to be treated with BiPAP patient is now being treated with you mix drip for renal failure but she is not on dialysis yet ENT: no complaints Respiratory: no complaints Cardiovascular: no complaints Gastrointestinal: no complaints Genitourinary: no complaints Musculoskeletal: no complaints Skin: no complaints Neurologic: no complaints Psychological: no complaints, nl mood/affect Past Medical History Medical History: congestive heart failure, coronary artery disease, diabetes, high cholesterol, hypertension Home Meds Reported Medications Atenolol* (Atenolol*) 25 Mg Tablet, 25 MG PO DAILY, #30 TAB 12/29/18 Icosapent Ethyl (VASCEPA) 1 Gm Capsule, 2 GM PO BID, CAP 12/29/18 Linagliptin (TRADJENTA) 5 Mg Tablet, 5 MG PO DAILY, TAB 12/29/18 Risedronate* (Actonel*) 35 Mg Tablet, 35 MG PO Q7D, #4 TAB 12/29/18 Dexlansoprazole (Dexilant) 60 Mg Cap., 60 MG PO DAILY, #30 CAP 12/29/18 Fenofibrate Nanocrystallized* (Fenofibrate*) 145 Mg Tablet, 145 MG PO DAILY, TAB 12/29/18 Rosuvastatin Calcium* (Crestor*) 40 Mg Tablet, 40 MG PO QHS, #30 TAB 12/29/18 Escitalopram Oxalate* (Lexapro*) 10 Mg Tablet, 10 MG PO DAILY, #30 TAB 12/29/18 Mirtazapine* (Mirtazapine*) 15 Mg Tablet, 15 MG PO HS, TAB 12/29/18 Tramadol Hcl* (Ultram*) 50 Mg Tablet, 50 MG PO Q6H PRN for PAIN, TAB 12/29/18 Furosemide* (Furosemide*) 40 Mg Tablet, 40 MG PO DAILY, TAB 12/29/18 Allopurinol* (Allopurinol*) 300 Mg Tablet, 300 MG PO DAILY, TAB 12/29/18 Folic Acid* (Folic Acid*) 1 Mg Tablet, 1 MG PO DAILY, TAB 12/29/18 Ergocalciferol (Vitamin D2) (VITAMIN D2) 50,000 Unit Capsule, 00651 UNIT PO ONCE A WEEK, CAP 12/29/18 Ferrous Sulfate* (Ferrous Sulfate*) 325 Mg Tabec, 325 MG PO TID, TAB 12/29/18 Hydralazine Hcl* (Apresoline*) 50 Mg Tab, 50 MG PO TID, #90 TAB 12/29/18 Medications Current Medications IV Flush (NS 3 ml) 3 ml PER PROTOCOL IV ; Start 12/28/18 at 04:30 Ondansetron HCl (Zofran Inj) 4 mg Q6H PRN IV NAUSEA/VOMITING Last administered on 01/04/19at 08:54; Admin Dose 4 MG; Start 12/28/18 at 04:30 Aspirin (Aspirin) 81 mg DAILY PO Last administered on 01/12/19at 09:54; Admin Dose 81 MG; Start 12/28/18 at 09:00 Nitroglycerin (Nitroglycerin (Sl Tab) 0.4 Mg) 1 tab Q5M PRN SL .CHEST PAIN Last administered on 01/10/19at 08:03; Admin Dose 1 TAB; Start 12/28/18 at 04:30 Diagnostic Test (Pha) (Accu-Chek) 1 ea 02 XX Last administered on 01/12/19at 01:24; Admin Dose 1 EA; Start 12/29/18 at 02:00 Miscellaneous Information 1 ea NOTE XX ; Start 12/28/18 at 05:00 Glucose (Glutose) 15 gm Q15M PRN PO DECREASED GLUCOSE; Start 12/28/18 at 05:00 Glucose (Glutose) 22.5 gm Q15M PRN PO DECREASED GLUCOSE; Start 12/28/18 at 05:00 Dextrose (D50w Syringe) 25 ml Q15M PRN IV DECREASED GLUCOSE; Start 12/28/18 at 05:00 Dextrose (D50w Syringe) 50 ml Q15M PRN IV DECREASED GLUCOSE; Start 12/28/18 at 05:00 Glucagon (Glucagen) 1 mg Q15M PRN IM DECREASED GLUCOSE; Start 12/28/18 at 05:00 Glucose (Glutose) 15 gm Q15M PRN BUCCAL DECREASED GLUCOSE; Start 12/28/18 at 05:00 Atorvastatin Calcium (Lipitor) 80 mg HS PO Last administered on 01/11/19 20:27; Admin Dose 80 MG; Start 12/29/18 at 21:00 Phenol (Cepastat Lozenge) 1 lozenge Q1H PRN MT COUGH Last administered on 01/03/19 13:05; Admin Dose 1 LOZENGE; Start 12/28/18 at 17:30 Escitalopram Oxalate (Lexapro) 10 mg DAILY PO Last administered on 01/12/19 09:54; Admin Dose 10 MG; Start 12/29/18 at 09:30 Risedronate (Actonel) 35 mg Tu@AC BREAKFAST PO ; Start 12/30/18 at 07:00 Mirtazapine (Remeron) 15 mg HS PO Last administered on 01/11/19 20:27; Admin Dose 15 MG; Start 12/29/18 at 21:00 Pantoprazole (Protonix Tab) 40 mg DAILY@06 PO Last administered on 01/12/19 05:31; Admin Dose 40 MG; Start 12/30/18 at 06:00 Docusate Sodium (Colace) 100 mg BID PO Last administered on 01/12/19 09:54; Admin Dose 100 MG; Start 12/29/18 at 18:30 Clopidogrel Bisulfate (plaVIX) 75 mg DAILY PO Last administered on 01/12/19 09:55; Admin Dose 75 MG; Start 01/03/19 at 09:00 Morphine Sulfate (morphine) 1 mg Q1H PRN IV SEVERE PAIN LEVEL 7-10 Last administered on 01/11/19 03:49; Admin Dose 1 MG; Start 01/04/19 at 16:00 Polyethylene Glycol (Miralax) 17 gm BID PRN PO CONSTIPATION Last administered on 01/12/19 09:54; Admin Dose 17 GM; Start 01/06/19 at 13:00 IV Flush (NS 10 ml) 10 ml PRN PRN IV flush; Start 01/06/19 at 18:30 Bisacodyl (Dulcolax Supp) 10 mg DAILY PRN [place] CONSTIPATION; Start 01/06/19 at 19:00 Insulin Aspart (Novolog Insulin Pen) NOVOLOG *MILD* ALGORI... Q4 SC Last administered on 01/11/19at 20:29; Admin Dose 1 UNIT; Start 01/07/19 at 05:00 Albuterol/ Ipratropium (Duoneb) 3 ml Q4H RESP THERAPY PRN HHN SHORTNESS OF BREATH Last administered on 01/11/19at 15:42; Admin Dose 3 ML; Start 01/07/19 at 20:00 Bumetanide 25 mg/ Dextrose 250 ml @ 10 mls/hr Q24H IV Last administered on 01/12/19at 12:15; Admin Dose 10 MLS/HR; Start 01/11/19 at 12:00 Carvedilol (Coreg) 12.5 mg BID PO Last administered on 01/12/19at 09:55; Admin Dose 12.5 MG; Start 01/11/19 at 21:00 IV Flush (NS 10 ml) 10 ml PRN PRN IV IV PROTOCOL; Start 01/12/19 at 18:00 Allergies: Coded Allergies: No Known Allergy (Unverified , 12/29/18) Past Surgical History Past Surgical Hx: other Social History Alcohol Use: none Smoking Status: Never smoker Drug Use: none Exam/Review of Systems Exam Vitals Vital Signs Date Temp Pulse Resp B/P (MAP) Pulse Ox O2 O2 Flow FiO2 Time Delivery Rate 01/12/19 Nasal 6.0 19:10 Cannula 01/12/19 78 27 114/35 98 19:00 (61) 01/12/19 97.7 16:00 01/12/19 50 01:07 Intake and Output 01/11/19 01/11/19 01/12/19 1515:00 23:00 07:00 IntakeIntake Total 705 ml 1150 ml 360 ml OutputOutput Total 10 ml 80 ml 265 ml BalanceBalance 695 ml 1070 ml 95 ml Eyes: nl conjunctiva, EOMI, nl lids, nl sclera, PERRL ENMT: nl external ears & nose, nl lips & teeth, nl nasal mucosa & septum Neck: supple, non-tender Respiratory: clear to auscultation, normal air movement Cardiovascular: regular rate and rhythm, nl pulses Gastrointestinal: soft, nl liver, spleen, non-tender Musculoskeletal: nl extremities to inspection, nl gait and stance Results Result Diagram: 01/12/19 0436 01/12/19 0436 Results 24hrs Laboratory Tests Test 01/11/19 20:26 01/12/19 01:23 01/12/19 04:36 01/12/19 05:29 Bedside Glucose 172 130 113 White Blood Count 24.9 H Red Blood Count 3.17 #L Hemoglobin 9.4 #L Hematocrit 30.3 #L Mean Corpuscular 95.6 Volume Mean Corpuscular 29.7 Hemoglobin Mean Corpuscular 31.0 L Hemoglobin Concent Red Cell 19.5 H Distribution Width Platelet Count 307 Mean Platelet Volume 10.5 H Immature 2.200 H Granulocytes % Neutrophils % 88.7 H Lymphocytes % 5.5 L Monocytes % 2.5 Eosinophils % 0.9 Basophils % 0.2 Nucleated Red Blood 1.2 H Cells % Immature 0.540 H Granulocytes # Neutrophils # 22.1 H Lymphocytes # 1.4 Monocytes # 0.6 Eosinophils # 0.2 Basophils # 0.1 Nucleated Red Blood 0.3 H Cells # Sodium Level 139 Potassium Level 3.6 Chloride Level 104 Carbon Dioxide Level 22 Anion Gap 13 Blood Urea Nitrogen 84 H Creatinine 3.43 H Est Glomerular Filtrat Rate mL/min Glucose Level 88 # Calcium Level 7.8 L Phosphorus Level 6.5 H Test 01/12/19 08:15 01/12/19 12:18 01/12/19 17:32 Bedside Glucose 101 109 114 Medications Medication Current Medications IV Flush (NS 3 ml) 3 ml PER PROTOCOL IV ; Start 12/28/18 at 04:30 Ondansetron HCl (Zofran Inj) 4 mg Q6H PRN IV NAUSEA/VOMITING Last administered on 01/04/19at 08:54; Admin Dose 4 MG; Start 12/28/18 at 04:30 Aspirin (Aspirin) 81 mg DAILY PO Last administered on 01/12/19at 09:54; Admin Dose 81 MG; Start 12/28/18 at 09:00 Nitroglycerin (Nitroglycerin (Sl Tab) 0.4 Mg) 1 tab Q5M PRN SL .CHEST PAIN Last administered on 01/10/19at 08:03; Admin Dose 1 TAB; Start 12/28/18 at 04:30 Diagnostic Test (Pha) (Accu-Chek) 1 ea 02 XX Last administered on 01/12/19at 01:24; Admin Dose 1 EA; Start 12/29/18 at 02:00 Miscellaneous Information 1 ea NOTE XX ; Start 12/28/18 at 05:00 Glucose (Glutose) 15 gm Q15M PRN PO DECREASED GLUCOSE; Start 12/28/18 at 05:00 Glucose (Glutose) 22.5 gm Q15M PRN PO DECREASED GLUCOSE; Start 12/28/18 at 05:00 Dextrose (D50w Syringe) 25 ml Q15M PRN IV DECREASED GLUCOSE; Start 12/28/18 at 05:00 Dextrose (D50w Syringe) 50 ml Q15M PRN IV DECREASED GLUCOSE; Start 12/28/18 at 05:00 Glucagon (Glucagen) 1 mg Q15M PRN IM DECREASED GLUCOSE; Start 12/28/18 at 05:00 Glucose (Glutose) 15 gm Q15M PRN BUCCAL DECREASED GLUCOSE; Start 12/28/18 at 05:00 Atorvastatin Calcium (Lipitor) 80 mg HS PO Last administered on 01/11/19at 20 :27; Admin Dose 80 MG; Start 12/29/18 at 21:00 Phenol (Cepastat Lozenge) 1 lozenge Q1H PRN MT COUGH Last administered on 01/03/19at 13:05; Admin Dose 1 LOZENGE; Start 12/28/18 at 17:30 Escitalopram Oxalate (Lexapro) 10 mg DAILY PO Last administered on 01/12/19at 09:54; Admin Dose 10 MG; Start 12/29/18 at 09:30 Risedronate (Actonel) 35 mg Tu@AC BREAKFAST PO ; Start 12/30/18 at 07:00 Mirtazapine (Remeron) 15 mg HS PO Last administered on 01/11/19at 20:27; Admin Dose 15 MG; Start 12/29/18 at 21:00 Pantoprazole (Protonix Tab) 40 mg DAILY@06 PO Last administered on 01/12/19 05:31; Admin Dose 40 MG; Start 12/30/18 at 06:00 Docusate Sodium (Colace) 100 mg BID PO Last administered on 01/12/19at 09:54; Admin Dose 100 MG; Start 12/29/18 at 18:30 Clopidogrel Bisulfate (plaVIX) 75 mg DAILY PO Last administered on 01/12/19 09:55; Admin Dose 75 MG; Start 01/03/19 at 09:00 Morphine Sulfate (morphine) 1 mg Q1H PRN IV SEVERE PAIN LEVEL 7-10 Last administered on 01/11/19 03:49; Admin Dose 1 MG; Start 01/04/19 at 16:00 Polyethylene Glycol (Miralax) 17 gm BID PRN PO CONSTIPATION Last administered on 01/12/19 09:54; Admin Dose 17 GM; Start 01/06/19 at 13:00 IV Flush (NS 10 ml) 10 ml PRN PRN IV flush; Start 01/06/19 at 18:30 Bisacodyl (Dulcolax Supp) 10 mg DAILY PRN [place] CONSTIPATION; Start 01/06/19 at 19:00 Insulin Aspart (Novolog Insulin Pen) NOVOLOG *MILD* ALGORI... Q4 SC Last administered on 01/11/19 20:29; Admin Dose 1 UNIT; Start 01/07/19 at 05:00 Albuterol/ Ipratropium (Duoneb) 3 ml Q4H RESP THERAPY PRN HHN SHORTNESS OF BREATH Last administered on 01/11/19 15:42; Admin Dose 3 ML; Start 01/07/19 at 20:00 Bumetanide 25 mg/ Dextrose 250 ml @ 10 mls/hr Q24H IV Last administered on 12:15; Admin Dose 10 MLS/HR; Start 01/11/19 at 12:00 Carvedilol (Coreg) 12.5 mg BID PO Last administered on 01/12/19 09:55; Admin Dose 12.5 MG; Start 01/11/19 at 21:00 IV Flush (NS 10 ml) 10 ml PRN PRN IV IV PROTOCOL; Start 01/12/19 at 18:00 CHELY JESSICA MD January 12, 2019 20:08
[2019-01-12] MEDS: ATORVASTATIN 80 MG TAB PO SCH (21:55)
[2019-01-12] MEDS: MIRTAZAPINE 15 MG TAB PO SCH (21:55)
[2019-01-13] VITALS (24 sets, daily range): BP systolic 90–124; BP diastolic 28–107; PULSE 71–90; RESP 17–29
[2019-01-13] MEDS: INSULIN ASPART [NOVOLOG] 3 ML PEN SC SCH ×6 (01:00→21:47)
[2019-01-13] MEDS: ACCU-CHEK XX SCH (02:00)
[2019-01-13] MEDS: PANTOPRAZOLE (EC) 40 MG TAB PO SCH (05:51)
[2019-01-13] MEDS: RISEDRONATE 35 MG TAB PO SCH (07:05)
[2019-01-13] MEDS: POTASSIUM CHLORIDE 50 ML IVPB SCH ×4 (08:17→14:13)
[2019-01-13] MEDS: ESCITALOPRAM 10 MG TAB PO SCH (08:59)
[2019-01-13] MEDS: DOCUSATE SODIUM 100 MG CAP PO SCH ×2 (08:59→21:35)
--- NOTE | 2019-01-13 08:59 | CONS ---
Consult Date/Type/Reason Admit Date/Time December 28, 2018 at 03:23 Initial Consult Date 01/03/19 Type of Consult Pulmonary Requesting Provider: KRYSTAL BERNARD Date/Time of Note DATE: 01/13/19 TIME: 08:57 Subjective Appears comfortable this morning. No respiratory distress. Mild confusion Objective Vital Signs Date Temp Pulse Resp B/P (MAP) Pulse Ox O2 O2 Flow FiO2 Time Delivery Rate 01/13/19 78 25 108/37 96 Nasal 06:00 (60) Cannula 01/13/19 97.5 04:00 01/13/19 6.0 00:33 01/12/19 50 01:07 Intake and Output 01/12/19 01/12/19 01/13/19 1515:00 23:00 07:00 IntakeIntake Total 380 ml 240 ml 100 ml OutputOutput Total 475 ml 580 ml 310 ml BalanceBalance -95 ml -340 ml -210 ml Exam GENERAL: Frail elderly lady on nasal cannula O2 VITAL SIGNS: per chart NECK: Supple. No JVD or lymphadenopathy. CARDIAC EXAM: S1, S2. No added sounds or murmurs. CHEST: Diminished air entry bilaterally with few rales ABDOMEN: Soft, nontender. No guarding or rebound. EXTREMITIES: No cyanosis, clubbing or edema. NEUROLOGIC: Generalized weakness. No focal deficits. Vent Setting Fraction of Inspired Oxygen pe: 30 Results/Medications Result Diagram: 01/13/19 0505 01/13/19 0505 Results 24 hrs Laboratory Tests Test 01/12/19 12:18 01/12/19 17:32 01/12/19 21:53 01/13/19 01:13 Bedside Glucose 109 114 116 106 Test 01/13/19 04:59 01/13/19 05:05 01/13/19 05:37 01/13/19 08:44 Lab Scanned BLOOD TRANSFUSIO Report N White Blood Count 23.4 H Red Blood Count 3.26 L Hemoglobin 9.9 L Hematocrit 31.0 L Mean Corpuscular 95.1 Volume Mean Corpuscular 30.4 Hemoglobin Mean Corpuscular 31.9 L Hemoglobin Concen t Red Cell 19.4 H Distribution Width Platelet Count 256 Mean Platelet 10.2 Volume Immature 1.700 H Granulocytes % Neutrophils % 92.3 H Lymphocytes % 2.9 L Monocytes % 1.7 Eosinophils % 1.1 Basophils % 0.3 Nucleated Red 0.8 H Blood Cells % Immature 0.410 H Granulocytes # Neutrophils # 21.6 H Lymphocytes # 0.7 L Monocytes # 0.4 Eosinophils # 0.3 Basophils # 0.1 Nucleated Red 0.2 H Blood Cells # Sodium Level 141 Potassium Level 2.7 *L Chloride Level 105 Carbon Dioxide 24 Level Anion Gap 12 Blood Urea 81 H Nitrogen Creatinine 2.87 H Est Glomerular Filtrat Rate mL/min Glucose Level 90 Calcium Level 7.8 L Bedside Glucose 99 112 Medications Current Medications IV Flush (NS 3 ml) 3 ml PER PROTOCOL IV ; Start 12/28/18 at 04:30 Ondansetron HCl (Zofran Inj) 4 mg Q6H PRN IV NAUSEA/VOMITING Last administered on 01/04/19at 08:54; Admin Dose 4 MG; Start 12/28/18 at 04:30 Aspirin (Aspirin) 81 mg DAILY PO Last administered on 01/12/19at 09:54; Admin Dose 81 MG; Start 12/28/18 at 09:00 Nitroglycerin (Nitroglycerin (Sl Tab) 0.4 Mg) 1 tab Q5M PRN SL .CHEST PAIN Last administered on 01/10/19at 08:03; Admin Dose 1 TAB; Start 12/28/18 at 04:30 Diagnostic Test (Pha) (Accu-Chek) 1 ea 02 XX Last administered on 01/13/19at 02:00; Admin Dose 1 EA; Start 12/29/18 at 02:00 Miscellaneous Information 1 ea NOTE XX ; Start 12/28/18 at 05:00 Glucose (Glutose) 15 gm Q15M PRN PO DECREASED GLUCOSE; Start 12/28/18 at 05:00 Glucose (Glutose) 22.5 gm Q15M PRN PO DECREASED GLUCOSE; Start 12/28/18 at 05:00 Dextrose (D50w Syringe) 25 ml Q15M PRN IV DECREASED GLUCOSE; Start 12/28/18 at 05:00 Dextrose (D50w Syringe) 50 ml Q15M PRN IV DECREASED GLUCOSE; Start 12/28/18 at 05:00 Glucagon (Glucagen) 1 mg Q15M PRN IM DECREASED GLUCOSE; Start 12/28/18 at 05:00 Glucose (Glutose) 15 gm Q15M PRN BUCCAL DECREASED GLUCOSE; Start 12/28/18 at 05:00 Atorvastatin Calcium (Lipitor) 80 mg HS PO Last administered on 01/12/19 21:55; Admin Dose 80 MG; Start 12/29/18 at 21:00 Phenol (Cepastat Lozenge) 1 lozenge Q1H PRN MT COUGH Last administered on 01/03/19 13:05; Admin Dose 1 LOZENGE; Start 12/28/18 at 17:30 Escitalopram Oxalate (Lexapro) 10 mg DAILY PO Last administered on 01/12/19 09:54; Admin Dose 10 MG; Start 12/29/18 at 09:30 Risedronate (Actonel) 35 mg Tu@AC BREAKFAST PO ; Start 12/30/18 at 07:00 Mirtazapine (Remeron) 15 mg HS PO Last administered on 01/12/19 21:55; Admin Dose 15 MG; Start 12/29/18 at 21:00 Pantoprazole (Protonix Tab) 40 mg DAILY@06 PO Last administered on 01/13/19 05:51; Admin Dose 40 MG; Start 12/30/18 at 06:00 Docusate Sodium (Colace) 100 mg BID PO Last administered on 01/12/19 21:55; Admin Dose 100 MG; Start 12/29/18 at 18:30 Clopidogrel Bisulfate (plaVIX) 75 mg DAILY PO Last administered on 01/12/19 09:55; Admin Dose 75 MG; Start 01/03/19 at 09:00 Morphine Sulfate (morphine) 1 mg Q1H PRN IV SEVERE PAIN LEVEL 7-10 Last administered on 01/11/19 03:49; Admin Dose 1 MG; Start 01/04/19 at 16:00 Polyethylene Glycol (Miralax) 17 gm BID PRN PO CONSTIPATION Last administered on 01/12/19 09:54; Admin Dose 17 GM; Start 01/06/19 at 13:00 IV Flush (NS 10 ml) 10 ml PRN PRN IV flush; Start 01/06/19 at 18:30 Bisacodyl (Dulcolax Supp) 10 mg DAILY PRN [place] CONSTIPATION; Start 01/06/19 at 19:00 Insulin Aspart (Novolog Insulin Pen) NOVOLOG *MILD* ALGORI... Q4 SC Last administered on 01/11/19 20:29; Admin Dose 1 UNIT; Start 01/07/19 at 05:00 Albuterol/ Ipratropium (Duoneb) 3 ml Q4H RESP THERAPY PRN HHN SHORTNESS OF BREATH Last administered on 01/11/19at 15:42; Admin Dose 3 ML; Start 01/07/19 at 20:00 Bumetanide 25 mg/ Dextrose 250 ml @ 10 mls/hr Q24H IV Last administered on 01/12/19at 12:15; Admin Dose 10 MLS/HR; Start 01/11/19 at 12:00 Carvedilol (Coreg) 12.5 mg BID PO Last administered on 01/12/19at 21:55; Admin Dose 12.5 MG; Start 01/11/19 at 21:00 IV Flush (NS 10 ml) 10 ml PRN PRN IV IV PROTOCOL; Start 01/12/19 at 18:00 Potassium Chloride 50 ml @ 25 mls/hr Q2H IVPB Last administered on 01/13/19at 08:17; Admin Dose 25 MLS/HR; Start 01/13/19 at 07:30; Stop 01/13/19 at 15:29 Assessment/Plan Hospital Course (Demo Recall) iMP: 1. s/p Acute SC--now with unstable angina 2. CHF ongoing pulmonary edema 3. Hypercapnic Resp Insufficiency 4. Severe CAD 5. Bacteremia 6. Acute and CKD, likely component of contrast nephropathy. worsening renal failure with metabolic acidosis. 7. Possible aspiration pneumonia. Right upper lobe infiltrate 8. Encephalopathy toxic metabolic, improved today. 9. Persistent leukocytosis RECS: 1. Improved urine output with Bumex drip.. 2. Follow I/O's and renal function 3. Aspiration precautions. CT chest findings noted. 4. BiPAP prn, 5. Continue cardiac recommendations post cath placement. 6. PT eval 35 min cc time Prognosis remains guarded. Consider transfer to telemetry. TONE REID MD, [facility] January 13, 2019 08:59
[2019-01-13] MEDS: ASPIRIN 81 MG TAB PO SCH (09:00)
[2019-01-13] MEDS: CLOPIDOGREL 75 MG TAB PO SCH (09:00)
[2019-01-13] MEDS: ONDANSETRON 4 MG INJ IV PRN (11:02)
--- NOTE | 2019-01-13 14:55 | PN ---
Date/Time of Note Date/Time of Note DATE: 01/13/19 TIME: 14:42 Assessment/Plan [place]axis [place] [facility] [place] risk: 8 [place] [facility] [place] Yes Pharmacological prophylaxis: NA/contraindicated Pharm contraindication: renal impairment Assessment/Plan Hospital Course 83 yo Citizen Of The [place]-speaking woman with history of dementia, hypertension, dyslipidemia, severe MR and aortic stenosis, arrhythmia who presents with ACS and multi-vessel coronary artery disease. #Acute VA #CAD - STEMI with LBBB - patient had cardiac cath on 12/28, found with: Severe 2 vessel CAD, LAD and RCA, LAD is culprit with francine 2 flow, and cardiomyopathy with LVEF 35%. Again patient also with severe aortic regurgitation and at least moderate mitral regurgitation. - Continue, Lipitor, beta-geovanny, statin, Plavix and Imdur - Now s/p PCI to LAD (01/04) and RCA (01/08) - She does also have severe AI, may need TAVR in the future. #Acute CHF exacerbation - likely due to acute ischemic CAD/STEMI - currently on IV lasix -Status post nitro gtt #Bacteremia: 2 out of 2 bottles positive for coagulase-negative staph - Finished 7 days of zosyn+vanco. -Short course of antibiotics given due to drug rash -Repeat blood cultures are negative #Rash - Erythematous, macular rash on lower abdomen and part of chest noted 01/07 - May be related to transfusion, or drug reaction. - Got decadon, benadryl, pepcid without significant improvement. - Stopped zosyn and vanco, this may have been a delayed drug reaction. #WILLIAM: Patient was having poor urine output but renal function has improved and urine output has increased -Continue Bumex drip which appears to be helping -Nephrology following -No CRISTINO or ARB at this time #Acute on chronic encephalopathy -Patient with baseline dementia but mentation has worsened likely secondary to delirium and steroids -Have discontinued steroids Prophylaxis: SCDs DC planning: Patient will ultimately require fci placement Result Diagram: 01/13/19 0505 01/13/19 0505 Results 24hrs Laboratory Tests Test 01/12/19 17:32 01/12/19 21:53 01/13/19 01:13 01/13/19 04:59 Bedside Glucose 114 116 106 Lab Scanned BLOOD TRANSFUSIO Report N Test 01/13/19 05:05 01/13/19 05:37 01/13/19 08:44 01/13/19 12:48 White Blood Count 23.4 H Red Blood Count 3.26 L Hemoglobin 9.9 L Hematocrit 31.0 L Mean Corpuscular 95.1 Volume Mean Corpuscular 30.4 Hemoglobin Mean Corpuscular 31.9 L Hemoglobin Concen t Red Cell 19.4 H Distribution Width Platelet Count 256 Mean Platelet 10.2 Volume Immature 1.700 H Granulocytes % Neutrophils % 92.3 H Lymphocytes % 2.9 L Monocytes % 1.7 Eosinophils % 1.1 Basophils % 0.3 Nucleated Red 0.8 H Blood Cells % Immature 0.410 H Granulocytes # Neutrophils # 21.6 H Lymphocytes # 0.7 L Monocytes # 0.4 Eosinophils # 0.3 Basophils # 0.1 Nucleated Red 0.2 H Blood Cells # Sodium Level 141 Potassium Level 2.7 *L Chloride Level 105 Carbon Dioxide 24 Level Anion Gap 12 Blood Urea 81 H Nitrogen Creatinine 2.87 H Est Glomerular Filtrat Rate mL/min Glucose Level 90 Calcium Level 7.8 L Bedside Glucose 99 112 112 Subjective 24 Hr Interval Summary Constitutional: disoriented Exam/Review of Systems Exam Vitals Vital Signs Date Temp Pulse Resp B/P (MAP) Pulse Ox O2 O2 Flow FiO2 Time Delivery Rate 01/13/19 6.0 12:00 01/13/19 74 12:00 01/13/19 28 123/37 97 Nasal 11:00 (65) Cannula 01/13/19 97.6 08:00 01/12/19 50 01:07 Intake and Output 01/12/19 01/12/19 01/13/19 1515:00 23:00 07:00 IntakeIntake Total 380 ml 240 ml 110 ml OutputOutput Total 475 ml 580 ml 310 ml BalanceBalance -95 ml -340 ml -200 ml Psych: confusion Respiratory: clear to auscultation Cardiovascular: regular rate and rhythm Gastrointestinal: soft; No distended Extremities: edema Results Results 24hrs Laboratory Tests Test 01/12/19 17:32 01/12/19 21:53 01/13/19 01:13 01/13/19 04:59 Bedside Glucose 114 116 106 Lab Scanned BLOOD TRANSFUSIO Report N Test 01/13/19 05:05 01/13/19 05:37 01/13/19 08:44 01/13/19 12:48 White Blood Count 23.4 H Red Blood Count 3.26 L Hemoglobin 9.9 L Hematocrit 31.0 L Mean Corpuscular 95.1 Volume Mean Corpuscular 30.4 Hemoglobin Mean Corpuscular 31.9 L Hemoglobin Concen t Red Cell 19.4 H Distribution Width Platelet Count 256 Mean Platelet 10.2 Volume Immature 1.700 H Granulocytes % Neutrophils % 92.3 H Lymphocytes % 2.9 L Monocytes % 1.7 Eosinophils % 1.1 Basophils % 0.3 Nucleated Red 0.8 H Blood Cells % Immature 0.410 H Granulocytes # Neutrophils # 21.6 H Lymphocytes # 0.7 L Monocytes # 0.4 Eosinophils # 0.3 Basophils # 0.1 Nucleated Red 0.2 H Blood Cells # Sodium Level 141 Potassium Level 2.7 *L Chloride Level 105 Carbon Dioxide 24 Level Anion Gap 12 Blood Urea 81 H Nitrogen Creatinine 2.87 H Est Glomerular Filtrat Rate mL/min Glucose Level 90 Calcium Level 7.8 L Bedside Glucose 99 112 112 Medications Medication Current Medications IV Flush (NS 3 ml) 3 ml PER PROTOCOL IV ; Start 12/28/18 at 04:30 Ondansetron HCl (Zofran Inj) 4 mg Q6H PRN IV NAUSEA/VOMITING Last administered on 01/13/19at 11:02; Admin Dose 4 MG; Start 12/28/18 at 04:30 Aspirin (Aspirin) 81 mg DAILY PO Last administered on 01/13/19at 09:00; Admin Dose 81 MG; Start 12/28/18 at 09:00 Nitroglycerin (Nitroglycerin (Sl Tab) 0.4 Mg) 1 tab Q5M PRN SL .CHEST PAIN Last administered on 01/10/19at 08:03; Admin Dose 1 TAB; Start 12/28/18 at 04:30 Diagnostic Test (Pha) (Accu-Chek) 1 ea 02 XX Last administered on 01/13/19at 02:00; Admin Dose 1 EA; Start 12/29/18 at 02:00 Miscellaneous Information 1 ea NOTE XX ; Start 12/28/18 at 05:00 Glucose (Glutose) 15 gm Q15M PRN PO DECREASED GLUCOSE; Start 12/28/18 at 05:00 Glucose (Glutose) 22.5 gm Q15M PRN PO DECREASED GLUCOSE; Start 12/28/18 at 05:00 Dextrose (D50w Syringe) 25 ml Q15M PRN IV DECREASED GLUCOSE; Start 12/28/18 at 05:00 Dextrose (D50w Syringe) 50 ml Q15M PRN IV DECREASED GLUCOSE; Start 12/28/18 at 05:00 Glucagon (Glucagen) 1 mg Q15M PRN IM DECREASED GLUCOSE; Start 12/28/18 at 05:00 Glucose (Glutose) 15 gm Q15M PRN BUCCAL DECREASED GLUCOSE; Start 12/28/18 at 05:00 Atorvastatin Calcium (Lipitor) 80 mg HS PO Last administered on 01/12/19 21:55; Admin Dose 80 MG; Start 12/29/18 at 21:00 Phenol (Cepastat Lozenge) 1 lozenge Q1H PRN MT COUGH Last administered on 01/03/19at 13:05; Admin Dose 1 LOZENGE; Start 12/28/18 at 17:30 Escitalopram Oxalate (Lexapro) 10 mg DAILY PO Last administered on 01/13/19at 08:59; Admin Dose 10 MG; Start 12/29/18 at 09:30 Risedronate (Actonel) 35 mg Tu@AC BREAKFAST PO ; Start 12/30/18 at 07:00 Mirtazapine (Remeron) 15 mg HS PO Last administered on 01/12/19 21:55; Admin Dose 15 MG; Start 12/29/18 at 21:00 Pantoprazole (Protonix Tab) 40 mg DAILY@06 PO Last administered on 01/13/19 05:51; Admin Dose 40 MG; Start 12/30/18 at 06:00 Docusate Sodium (Colace) 100 mg BID PO Last administered on 01/13/19 08:59; Admin Dose 100 MG; Start 12/29/18 at 18:30 Clopidogrel Bisulfate (plaVIX) 75 mg DAILY PO Last administered on 01/13/19 09:00; Admin Dose 75 MG; Start 01/03/19 at 09:00 Morphine Sulfate (morphine) 1 mg Q1H PRN IV SEVERE PAIN LEVEL 7-10 Last ad ministered on 01/11/19at 03:49; Admin Dose 1 MG; Start 01/04/19 at 16:00 Polyethylene Glycol (Miralax) 17 gm BID PRN PO CONSTIPATION Last administered on 01/12/19 09:54; Admin Dose 17 GM; Start 01/06/19 at 13:00 IV Flush (NS 10 ml) 10 ml PRN PRN IV flush; Start 01/06/19 at 18:30 Bisacodyl (Dulcolax Supp) 10 mg DAILY PRN [place] CONSTIPATION; Start 01/06/19 at 19:00 Insulin Aspart (Novolog Insulin Pen) NOVOLOG *MILD* ALGORI... Q4 SC Last administered on 01/11/19 20:29; Admin Dose 1 UNIT; Start 01/07/19 at 05:00 Albuterol/ Ipratropium (Duoneb) 3 ml Q4H RESP THERAPY PRN HHN SHORTNESS OF BREATH Last administered on 01/11/19 15:42; Admin Dose 3 ML; Start 01/07/19 at 20:00 Bumetanide 25 mg/ Dextrose 250 ml @ 10 mls/hr Q24H IV Last administered on 01/12/19 12:15; Admin Dose 10 MLS/HR; Start 01/11/19 at 12:00 Carvedilol (Coreg) 12.5 mg BID PO Last administered on 01/13/19 09:46; Admin Dose 12.5 MG; Start 01/11/19 at 21:00 IV Flush (NS 10 ml) 10 ml PRN PRN IV IV PROTOCOL; Start 01/12/19 at 18:00 Potassium Chloride 50 ml @ 25 mls/hr Q2H IVPB Last administered on 01/13/19at 14:13; Admin Dose 25 MLS/HR; Start 01/13/19 at 07:30; Stop 01/13/19 at 15:29 DELORIS EVANGELISTA January 13, 2019 14:52
[2019-01-13] MEDS: BUMETANIDE 25 MG in DEXTROSE 5% 150 ML IV SCH (15:14)
--- NOTE | 2019-01-13 16:14 | CONS ---
Assessment/Plan Assessment/Plan Assessment/Plan (Daily) 1. Acute kidney injury on CKD III 2/2 Hemodynamics from CHF + NSTEMI - worsening renal failure 2. Hypokalemia 3. Hypernatremia 4. acute NSTEMI s/p LHC showed multivessel obstructive CAD - s/p Successful PTCA and stenting of proximal left anterior descending artery using a 3 x 20 mm Synergy drug-eluting stent on 01/04/19- s/p LHC with proximal RCA stenting on 01/08/19 5. CAD multivessel obstructive 6. Anemia of Chronic disease s/p 2 U PRBC on 01/07/19 Plan: BUN/Cr 81/2.87, K 2.7 , Agressive K replacement - pt responded well to IV Bumex gtt,- making good urine output, Change bumex to 1mg IV BID, monitor HD, No plan for HD for now IV abx zosyn, renally dosed for bacteremia, renally dose all abx and monitor electrolytes s/p LOUIE on 12/30/18 showed severe AI and no vegetations, will follow up Consultation Date/Type/Reason Admit Date/Time December 28, 2018 at 03:23 Initial Consult Date 12/28/18 Type of Consult NEPHROLOGY Requesting Provider: KRYSTAL BERNARD Date/Time of Note DATE: 01/13/19 TIME: 16:14 Exam/Review of Systems Exam Vitals Vital Signs Date Temp Pulse Resp B/P (MAP) Pulse Ox O2 O2 Flow FiO2 Time Delivery Rate 01/13/19 6.0 12:00 01/13/19 74 12:00 01/13/19 28 123/37 97 Nasal 11:00 (65) Cannula 01/13/19 97.6 08:00 01/12/19 50 01:07 Intake and Output 01/12/19 01/12/19 01/13/19 1515:00 23:00 07:00 IntakeIntake Total 380 ml 240 ml 110 ml OutputOutput Total 475 ml 580 ml 310 ml BalanceBalance -95 ml -340 ml -200 ml Results Result Diagram: 01/13/19 0505 01/13/19 0505 Results 24hrs Laboratory Tests Test 01/12/19 17:32 01/12/19 21:53 01/13/19 01:13 01/13/19 04:59 Bedside Glucose 114 116 106 Lab Scanned BLOOD TRANSFUSIO Report N Test 01/13/19 05:05 01/13/19 05:37 01/13/19 08:44 01/13/19 12:48 White Blood Count 23.4 H Red Blood Count 3.26 L Hemoglobin 9.9 L Hematocrit 31.0 L Mean Corpuscular 95.1 Volume Mean Corpuscular 30.4 Hemoglobin Mean Corpuscular 31.9 L Hemoglobin Concen t Red Cell 19.4 H Distribution Width Platelet Count 256 Mean Platelet 10.2 Volume Immature 1.700 H Granulocytes % Neutrophils % 92.3 H Lymphocytes % 2.9 L Monocytes % 1.7 Eosinophils % 1.1 Basophils % 0.3 Nucleated Red 0.8 H Blood Cells % Immature 0.410 H Granulocytes # Neutrophils # 21.6 H Lymphocytes # 0.7 L Monocytes # 0.4 Eosinophils # 0.3 Basophils # 0.1 Nucleated Red 0.2 H Blood Cells # Sodium Level 141 Potassium Level 2.7 *L Chloride Level 105 Carbon Dioxide 24 Level Anion Gap 12 Blood Urea 81 H Nitrogen Creatinine 2.87 H Est Glomerular Filtrat Rate mL/min Glucose Level 90 Calcium Level 7.8 L Bedside Glucose 99 112 112 Medications Medication Current Medications IV Flush (NS 3 ml) 3 ml PER PROTOCOL IV ; Start 12/28/18 at 04:30 Ondansetron HCl (Zofran Inj) 4 mg Q6H PRN IV NAUSEA/VOMITING Last administered on 01/13/19at 11:02; Admin Dose 4 MG; Start 12/28/18 at 04:30 Aspirin (Aspirin) 81 mg DAILY PO Last administered on 01/13/19at 09:00; Admin Dose 81 MG; Start 12/28/18 at 09:00 Nitroglycerin (Nitroglycerin (Sl Tab) 0.4 Mg) 1 tab Q5M PRN SL .CHEST PAIN Last administered on 01/10/19at 08:03; Admin Dose 1 TAB; Start 12/28/18 at 04:30 Diagnostic Test (Pha) (Accu-Chek) 1 ea 02 XX Last administered on 01/13/19at 02:00; Admin Dose 1 EA; Start 12/29/18 at 02:00 Miscellaneous Information 1 ea NOTE XX ; Start 12/28/18 at 05:00 Glucose (Glutose) 15 gm Q15M PRN PO DECREASED GLUCOSE; Start 12/28/18 at 05:00 Glucose (Glutose) 22.5 gm Q15M PRN PO DECREASED GLUCOSE; Start 12/28/18 at 05:00 Dextrose (D50w Syringe) 25 ml Q15M PRN IV DECREASED GLUCOSE; Start 12/28/18 at 05:00 Dextrose (D50w Syringe) 50 ml Q15M PRN IV DECREASED GLUCOSE; Start 12/28/18 at 05:00 Glucagon (Glucagen) 1 mg Q15M PRN IM DECREASED GLUCOSE; Start 12/28/18 at 05:00 Glucose (Glutose) 15 gm Q15M PRN BUCCAL DECREASED GLUCOSE; Start 12/28/18 at 05:00 Atorvastatin Calcium (Lipitor) 80 mg HS PO Last administered on 01/12/19 21:55; Admin Dose 80 MG; Start 12/29/18 at 21:00 Phenol (Cepastat Lozenge) 1 lozenge Q1H PRN MT COUGH Last administered on 01/03/19at 13:05; Admin Dose 1 LOZENGE; Start 12/28/18 at 17:30 Escitalopram Oxalate (Lexapro) 10 mg DAILY PO Last administered on 01/13/19at 08:59; Admin Dose 10 MG; Start 12/29/18 at 09:30 Risedronate (Actonel) 35 mg Tu@AC BREAKFAST PO ; Start 12/30/18 at 07:00 Mirtazapine (Remeron) 15 mg HS PO Last administered on 01/12/19 21:55; Admin Dose 15 MG; Start 12/29/18 at 21:00 Pantoprazole (Protonix Tab) 40 mg DAILY@06 PO Last administered on 01/13/19 05:51; Admin Dose 40 MG; Start 12/30/18 at 06:00 Docusate Sodium (Colace) 100 mg BID PO Last administered on 01/13/19 08:59; Admin Dose 100 MG; Start 12/29/18 at 18:30 Clopidogrel Bisulfate (plaVIX) 75 mg DAILY PO Last administered on 01/13/19 09:00; Admin Dose 75 MG; Start 01/03/19 at 09:00 Morphine Sulfate (morphine) 1 mg Q1H PRN IV SEVERE PAIN LEVEL 7-10 Last admin istered on 01/11/19at 03:49; Admin Dose 1 MG; Start 01/04/19 at 16:00 Polyethylene Glycol (Miralax) 17 gm BID PRN PO CONSTIPATION Last administered on 01/12/19at 09:54; Admin Dose 17 GM; Start 01/06/19 at 13:00 IV Flush (NS 10 ml) 10 ml PRN PRN IV flush; Start 01/06/19 at 18:30 Bisacodyl (Dulcolax Supp) 10 mg DAILY PRN [place] CONSTIPATION; Start 01/06/19 at 19:00 Insulin Aspart (Novolog Insulin Pen) NOVOLOG *MILD* ALGORI... Q4 SC Last administered on 01/11/19 20:29; Admin Dose 1 UNIT; Start 01/07/19 at 05:00 Albuterol/ Ipratropium (Duoneb) 3 ml Q4H RESP THERAPY PRN HHN SHORTNESS OF BREATH Last administered on 01/11/19at 15:42; Admin Dose 3 ML; Start 01/07/19 at 20:00 Bumetanide 25 mg/ Dextrose 250 ml @ 10 mls/hr Q24H IV Last administered on 01/13/19at 15:14; Admin Dose 10 MLS/HR; Start 01/11/19 at 12:00 Carvedilol (Coreg) 12.5 mg BID PO Last administered on 01/13/19at 09:46; Admin Dose 12.5 MG; Start 01/11/19 at 21:00 IV Flush (NS 10 ml) 10 ml PRN PRN IV IV PROTOCOL; Start 01/12/19 at 18:00 PATTI CALLEJAS MD January 13, 2019 16:14
[2019-01-13] MEDS: BUMETANIDE 1 MG INJ IV SCH (17:45)
--- NOTE | 2019-01-13 18:52 | CONS ---
Assessment/Plan Assessment/Plan Hospital Course (Demo Recall) 83 yo with STEMI/new LBBB, with severe 2V CAD, culprit lesion is LAD with SHERIN 2 flow on cath, with ischemic cardiomyopathy, lvef 40-45% and severe aortic regurgitation. Course complicated by acute heart failure, acute renal failure, and recurrent chest/epigastric pain. Underwent urgent PCI to mid LAD on Thursday 01/04, and staged PCI of the RCA on . Now with acute renal insufficienc y, with creatinine improving, severe debility/weakness, and poor appetite Impression: Acute MS with new LBBB Acute systolic heart failure, with elevated lvedp on cath, improved Acute on chronic renal insufficiency, likely secondary to contrast-induced nephropathy, improving Severe aortic regurgitation which is chronic per Dr. Archuleta (opt license issuer), and moderate mitral regurgitation htn, controlled Anemia due to blood loss, transfused Severe debility Poor appetite Recommendations: Continue asa, statin, clopidogrel, carvedilol at 12.5 bid. Bumex drip and renal management per nephrology PT/OT Nutrition support. She could be transferred from the unit to a telemetry bed Discharge planning Consultation Date/Type/Reason Admit Date/Time December 28, 2018 at 03:23 Initial Consult Date 12/28/18 Type of Consult Cardiology Requesting Provider: KRYSTAL BERNARD Date/Time of Note DATE: 01/13/19 TIME: 18:46 24 HR Interval Summary Free Text/Dictation Patient with abdominal pain, poor appetite. voices frustration that she is weak and has poor appetite. Nutrition evaluation from earlier reviewed, she is now getting Boost shakes tid. Exam/Review of Systems Vital Signs Vitals Vital Signs Date Temp Pulse Resp B/P (MAP) Pulse Ox O2 O2 Flow FiO2 Time Delivery Rate 01/13/19 86 16:00 01/13/19 97.9 20 113/44 95 Nasal 16:00 (67) Cannula 01/13/19 6.0 12:00 01/12/19 50 01:07 Intake and Output 01/12/19 01/12/19 01/13/19 1515:00 23:00 07:00 IntakeIntake Total 380 ml 240 ml 110 ml OutputOutput Total 475 ml 580 ml 310 ml BalanceBalance -95 ml -340 ml -200 ml Exam Constitutional: alert, frail Psych: other (flat affect) Head: normocephalic, atraumatic Eyes: EOMI, nl lids ENMT: nl external ears & nose Neck: No jvd, No bruits Respiratory: clear to auscultation Cardiovascular: regular rate and rhythm, murmurs/extra sounds Gastrointestinal: distended, tender (diffusely) Extremities: edema (anasarca - mild edema in both arms, and moderate in both legs) Neurological: nl speech Skin: rash or lesions Labs Result Diagram: 01/13/19 0505 01/13/19 0505 Results 24hrs Laboratory Tests Test 01/12/19 21:53 01/13/19 01:13 01/13/19 04:59 01/13/19 05:05 Bedside Glucose 116 106 Lab Scanned BLOOD TRANSFUSIO Report N White Blood Count 23.4 H Red Blood Count 3.26 L Hemoglobin 9.9 L Hematocrit 31.0 L Mean Corpuscular 95.1 Volume Mean Corpuscular 30.4 Hemoglobin Mean Corpuscular 31.9 L Hemoglobin Concen t Red Cell 19.4 H Distribution Width Platelet Count 256 Mean Platelet 10.2 Volume Immature 1.700 H Granulocytes % Neutrophils % 92.3 H Lymphocytes % 2.9 L Monocytes % 1.7 Eosinophils % 1.1 Basophils % 0.3 Nucleated Red 0.8 H Blood Cells % Immature 0.410 H Granulocytes # Neutrophils # 21.6 H Lymphocytes # 0.7 L Monocytes # 0.4 Eosinophils # 0.3 Basophils # 0.1 Nucleated Red 0.2 H Blood Cells # Sodium Level 141 Potassium Level 2.7 *L Chloride Level 105 Carbon Dioxide 24 Level Anion Gap 12 Blood Urea 81 H Nitrogen Creatinine 2.87 H Est Glomerular Filtrat Rate mL/min Glucose Level 90 Calcium Level 7.8 L Test 01/13/19 05:37 01/13/19 08:44 01/13/19 12:48 01/13/19 17:40 Bedside Glucose 99 112 112 136 Medications Medications Current Medications IV Flush (NS 3 ml) 3 ml PER PROTOCOL IV ; Start 12/28/18 at 04:30 Ondansetron HCl (Zofran Inj) 4 mg Q6H PRN IV NAUSEA/VOMITING Last administered on 01/13/19at 11:02; Admin Dose 4 MG; Start 12/28/18 at 04:30 Aspirin (Aspirin) 81 mg DAILY PO Last administered on 01/13/19at 09:00; Admin Dose 81 MG; Start 12/28/18 at 09:00 Nitroglycerin (Nitroglycerin (Sl Tab) 0.4 Mg) 1 tab Q5M PRN SL .CHEST PAIN Last administered on 01/10/19at 08:03; Admin Dose 1 TAB; Start 12/28/18 at 04:30 Diagnostic Test (Pha) (Accu-Chek) 1 ea 02 XX Last administered on 01/13/19at 02:00; Admin Dose 1 EA; Start 12/29/18 at 02:00 Miscellaneous Information 1 ea NOTE XX ; Start 12/28/18 at 05:00 Glucose (Glutose) 15 gm Q15M PRN PO DECREASED GLUCOSE; Start 12/28/18 at 05:00 Glucose (Glutose) 22.5 gm Q15M PRN PO DECREASED GLUCOSE; Start 12/28/18 at 05:00 Dextrose (D50w Syringe) 25 ml Q15M PRN IV DECREASED GLUCOSE; Start 12/28/18 at 05:00 Dextrose (D50w Syringe) 50 ml Q15M PRN IV DECREASED GLUCOSE; Start 12/28/18 at 05:00 Glucagon (Glucagen) 1 mg Q15M PRN IM DECREASED GLUCOSE; Start 12/28/18 at 05:00 Glucose (Glutose) 15 gm Q15M PRN BUCCAL DECREASED GLUCOSE; Start 12/28/18 at 05:00 Atorvastatin Calcium (Lipitor) 80 mg HS PO Last administered on 01/12/19at 21:5 5; Admin Dose 80 MG; Start 12/29/18 at 21:00 Phenol (Cepastat Lozenge) 1 lozenge Q1H PRN MT COUGH Last administered on 01/03/19at 13:05; Admin Dose 1 LOZENGE; Start 12/28/18 at 17:30 Escitalopram Oxalate (Lexapro) 10 mg DAILY PO Last administered on 01/13/19at 08:59; Admin Dose 10 MG; Start 12/29/18 at 09:30 Risedronate (Actonel) 35 mg Tu@AC BREAKFAST PO ; Start 12/30/18 at 07:00 Mirtazapine (Remeron) 15 mg HS PO Last administered on 01/12/19at 21:55; Admin Dose 15 MG; Start 12/29/18 at 21:00 Pantoprazole (Protonix Tab) 40 mg DAILY@06 PO Last administered on 01/13/19 05:51; Admin Dose 40 MG; Start 12/30/18 at 06:00 Docusate Sodium (Colace) 100 mg BID PO Last administered on 01/13/19 08:59; Ad min Dose 100 MG; Start 12/29/18 at 18:30 Clopidogrel Bisulfate (plaVIX) 75 mg DAILY PO Last administered on 01/13/19 09:00; Admin Dose 75 MG; Start 01/03/19 at 09:00 Morphine Sulfate (morphine) 1 mg Q1H PRN IV SEVERE PAIN LEVEL 7-10 Last administered on 01/11/19 03:49; Admin Dose 1 MG; Start 01/04/19 at 16:00 Polyethylene Glycol (Miralax) 17 gm BID PRN PO CONSTIPATION Last administered on 01/12/19 09:54; Admin Dose 17 GM; Start 01/06/19 at 13:00 IV Flush (NS 10 ml) 10 ml PRN PRN IV flush; Start 01/06/19 at 18:30 Bisacodyl (Dulcolax Supp) 10 mg DAILY PRN [place] CONSTIPATION; Start 01/06/19 at 19:00 Insulin Aspart (Novolog Insulin Pen) NOVOLOG *MILD* ALGORI... Q4 SC Last administered on 01/11/19 20:29; Admin Dose 1 UNIT; Start 01/07/19 at 05:00 Albuterol/ Ipratropium (Duoneb) 3 ml Q4H RESP THERAPY PRN HHN SHORTNESS OF BREATH Last administered on 01/11/19 15:42; Admin Dose 3 ML; Start 01/07/19 at 20:00 Carvedilol (Coreg) 12.5 mg BID PO Last administered on 01/13/19 09:46; Admin D ose 12.5 MG; Start 01/11/19 at 21:00 IV Flush (NS 10 ml) 10 ml PRN PRN IV IV PROTOCOL; Start 01/12/19 at 18:00 Bumetanide (Bumex) 1 mg BID DIURETICS IV ; Start 01/13/19 at 18:00 RODRIGUEZ GARZA January 13, 2019 18:52
[2019-01-13] MEDS: MIRTAZAPINE 15 MG TAB PO SCH (21:35)
[2019-01-13] MEDS: ATORVASTATIN 80 MG TAB PO SCH (21:35)
[2019-01-13] MEDS: morphine 2 MG INJ IV PRN (21:36)
[2019-01-14] VITALS (13 sets, daily range): BP systolic 110–128; BP diastolic 36–58; PULSE 78–94; RESP 18–26
[2019-01-14] MEDS: INSULIN ASPART [NOVOLOG] 3 ML PEN SC SCH ×5 (01:39→17:00)
[2019-01-14] MEDS: ACCU-CHEK XX SCH (02:00)
[2019-01-14] MEDS: BUMETANIDE 1 MG INJ IV SCH ×2 (05:19→17:35)
[2019-01-14] MEDS: PANTOPRAZOLE (EC) 40 MG TAB PO SCH (05:19)
--- NOTE | 2019-01-14 08:39 | CONS ---
Assessment/Plan Assessment/Plan Hospital Course (Demo Recall) 83 yo with STEMI/new LBBB, with severe 2V CAD, culprit lesion is LAD with SHERIN 2 flow on cath, with ischemic cardiomyopathy, lvef 40-45% and severe aortic regurgitation. Course complicated by acute heart failure, acute renal failure, and recurrent chest/epigastric pain. Underwent urgent PCI to mid LAD on Thursday 01/04, and staged PCI of the RCA on . Now with acute renal insufficiency likely contrast induced nephropathy with creatinine improving, severe debility/weakness, and poor appetite Impression: Acute LA with new LBBB Acute systolic heart failure, with elevated lvedp on cath, improved Acute on chronic renal insufficiency, likely secondary to contrast-induced nephropathy, improving Severe aortic regurgitation which is chronic per Dr. Archuleta (opt public relations intern), and moderate mitral regurgitation Hypertension, controlled Severe debility Poor appetite Recommendations: Continue asa, statin, clopidogrel, carvedilol at 12.5 bid. Bumex drip and renal management per nephrology PT/OT Nutrition support, Boost TID Discharge planning Consultation Date/Type/Reason Admit Date/Time December 28, 2018 at 03:23 Initial Consult Date 12/28/18 Type of Consult Cardiology Requesting Provider: KRYSTAL BERNARD Date/Time of Note DATE: 01/14/19 TIME: 08:36 24 HR Interval Summary Free Text/Dictation Patient complains of abdominal pain. Again states frustration at his 's lack of appetite and weakness. Exam/Review of Systems Vital Signs Vitals Vital Signs Date Temp Pulse Resp B/P (MAP) Pulse Ox O2 O2 Flow FiO2 Time Delivery Rate 01/14/19 89 08:31 01/14/19 97.5 18 115/54 94 07:42 (74) 01/14/19 Nasal 6.0 04:31 Cannula 01/12/19 50 01:07 Intake and Output 01/13/19 01/13/19 01/14/19 1515:00 23:00 07:00 IntakeIntake Total 330 ml 520 ml 100 ml OutputOutput Total 825 ml 860 ml 650 ml BalanceBalance -495 ml -340 ml -550 ml Exam Constitutional: alert, frail Psych: other (flat affect) Head: normocephalic, atraumatic Eyes: EOMI, nl lids ENMT: nl external ears & nose Neck: No jvd, No bruits Respiratory: clear to auscultation, normal air movement Cardiovascular: regular rate and rhythm, murmurs/extra sounds Gastrointestinal: bowel sounds, distended, tender (diffusely) Extremities: edema Neurological: nl speech Skin: rash or lesions Labs Result Diagram: 01/14/19 0643 01/14/19 0643 Results 24hrs Laboratory Tests Test 01/13/19 08:44 01/13/19 12:48 01/13/19 17:40 01/13/19 21:42 Bedside Glucose 112 112 136 195 Test 01/14/19 01:32 01/14/19 05:17 01/14/19 06:43 01/14/19 08:10 Bedside Glucose 147 134 131 White Blood Count 24.0 H Red Blood Count 3.76 L Hemoglobin 11.3 L Hematocrit 35.6 L Mean Corpuscular 94.7 Volume Mean Corpuscular 30.1 Hemoglobin Mean Corpuscular 31.7 L Hemoglobin Concent Red Cell 20.1 H Distribution Width Platelet Count 266 Mean Platelet Volume 9.7 Immature 2.000 H Granulocytes % Neutrophils % 89.8 H Lymphocytes % 4.3 L Monocytes % 2.5 Eosinophils % 1.1 Basophils % 0.3 Nucleated Red Blood 0.3 H Cells % Immature 0.490 H Granulocytes # Neutrophils # 21.5 H Lymphocytes # 1.0 Monocytes # 0.6 Eosinophils # 0.3 Basophils # 0.1 Nucleated Red Blood 0.1 H Cells # Sodium Level 142 Potassium Level 3.5 Chloride Level 107 Carbon Dioxide Level 28 Anion Gap 7 Blood Urea Nitrogen 75 H Creatinine 2.36 H Est Glomerular Filtrat Rate mL/min Glucose Level 128 Calcium Level 8.5 Medications Medications Current Medications IV Flush (NS 3 ml) 3 ml PER PROTOCOL IV ; Start 12/28/18 at 04:30 Ondansetron HCl (Zofran Inj) 4 mg Q6H PRN IV NAUSEA/VOMITING Last administered on 01/13/19at 11:02; Admin Dose 4 MG; Start 12/28/18 at 04:30 Aspirin (Aspirin) 81 mg DAILY PO Last administered on 01/13/19at 09:00; Admin Dose 81 MG; Start 12/28/18 at 09:00 Nitroglycerin (Nitroglycerin (Sl Tab) 0.4 Mg) 1 tab Q5M PRN SL .CHEST PAIN Last administered on 01/10/19at 08:03; Admin Dose 1 TAB; Start 12/28/18 at 04:30 Diagnostic Test (Pha) (Accu-Chek) 1 ea 02 XX Last administered on 01/13/19at 02:00; Admin Dose 1 EA; Start 12/29/18 at 02:00 Miscellaneous Information 1 ea NOTE XX ; Start 12/28/18 at 05:00 Glucose (Glutose) 15 gm Q15M PRN PO DECREASED GLUCOSE; Start 12/28/18 at 05:00 Glucose (Glutose) 22.5 gm Q15M PRN PO DECREASED GLUCOSE; Start 12/28/18 at 05:00 Dextrose (D50w Syringe) 25 ml Q15M PRN IV DECREASED GLUCOSE; Start 12/28/18 at 05:00 Dextrose (D50w Syringe) 50 ml Q15M PRN IV DECREASED GLUCOSE; Start 12/28/18 at 05:00 Glucagon (Glucagen) 1 mg Q15M PRN IM DECREASED GLUCOSE; Start 12/28/18 at 05:00 Glucose (Glutose) 15 gm Q15M PRN BUCCAL DECREASED GLUCOSE; Start 12/28/18 at 05:00 Atorvastatin Calcium (Lipitor) 80 mg HS PO Last administered on 01/13/19at 21:35; Admin Dose 80 MG; Start 12/29/18 at 21:00 Phenol (Cepastat Lozenge) 1 lozenge Q1H PRN MT COUGH Last administered on 01/03/19at 13:05; Admin Dose 1 LOZENGE; Start 12/28/18 at 17:30 Escitalopram Oxalate (Lexapro) 10 mg DAILY PO Last administered on 01/13/19at 08:59; Admin Dose 10 MG; Start 12/29/18 at 09:30 Risedronate (Actonel) 35 mg Tu@AC BREAKFAST PO ; Start 12/30/18 at 07:00 Mirtazapine (Remeron) 15 mg HS PO Last administered on 01/13/19at 21:35; Admin Dose 15 MG; Start 12/29/18 at 21:00 Pantoprazole (Protonix Tab) 40 mg DAILY@06 PO Last administered on 01/14/19at 05:19; Admin Dose 40 MG; Start 12/30/18 at 06:00 Docusate Sodium (Colace) 100 mg BID PO Last administered on 01/13/19 21:35; Admin Dose 100 MG; Start 12/29/18 at 18:30 Clopidogrel Bisulfate (plaVIX) 75 mg DAILY PO Last administered on 01/13/19 09:00; Admin Dose 75 MG; Start 01/03/19 at 09:00 Morphine Sulfate (morphine) 1 mg Q1H PRN IV SEVERE PAIN LEVEL 7-10 Last administered on 01/13/19 21:36; Admin Dose 1 MG; Start 01/04/19 at 16:00 Polyethylene Glycol (Miralax) 17 gm BID PRN PO CONSTIPATION Last administered on 01/12/19 09:54; Admin Dose 17 GM; Start 01/06/19 at 13:00 IV Flush (NS 10 ml) 10 ml PRN PRN IV flush; Start 01/06/19 at 18:30 Bisacodyl (Dulcolax Supp) 10 mg DAILY PRN [place] CONSTIPATION; Start 01/06/19 at 19:00 Insulin Aspart (Novolog Insulin Pen) NOVOLOG *MILD* ALGORI... Q4 SC Last administered on 01/14/19 01:39; Admin Dose 1 UNIT; Start 01/07/19 at 05:00 Albuterol/ Ipratropium (Duoneb) 3 ml Q4H RESP THERAPY PRN HHN SHORTNESS OF BREATH Last administered on 01/11/19 15:42; Admin Dose 3 ML; Start 01/07/19 at 20:00 Carvedilol (Coreg) 12.5 mg BID PO Last administered on 01/13/19 21:36; Admin Dose 12.5 MG; Start 01/11/19 at 21:00 IV Flush (NS 10 ml) 10 ml PRN PRN IV IV PROTOCOL; Start 01/12/19 at 18:00 Bumetanide (Bumex) 1 mg BID DIURETICS IV Last administered on 01/14/19 05:19; Admin Dose 1 MG; Start 01/13/19 at 18:00 RODRIGUEZ GARZA January 14, 2019 08:39
[2019-01-14] MEDS: DOCUSATE SODIUM 100 MG CAP PO SCH ×2 (08:43→21:43)
[2019-01-14] MEDS: ESCITALOPRAM 10 MG TAB PO SCH (08:43)
[2019-01-14] MEDS: CLOPIDOGREL 75 MG TAB PO SCH (08:44)
[2019-01-14] MEDS: ASPIRIN 81 MG TAB PO SCH (08:44)
[2019-01-14] MEDS ORDERED: MEGESTROL (40 MG/ML) 10ML CUP PO SCH (11:00)
--- NOTE | 2019-01-14 12:35 | CONS ---
Consult Date/Type/Reason Admit Date/Time December 28, 2018 at 03:23 Initial Consult Date 01/03/19 Type of Consult Pulmonary Requesting Provider: KRYSTAL BERNARD Date/Time of Note DATE: 01/14/19 TIME: 12:34 Subjective Patient comfortable this morning no respiratory distress. Objective Vital Signs Date Temp Pulse Resp B/P (MAP) Pulse Ox O2 O2 Flow FiO2 Time Delivery Rate 01/14/19 82 12:14 01/14/19 97.7 19 110/52 96 11:02 (71) 01/14/19 Nasal 6.0 08:00 Cannula 01/12/19 50 01:07 Intake and Output 01/13/19 01/13/19 01/14/19 1515:00 23:00 07:00 IntakeIntake Total 330 ml 520 ml 100 ml OutputOutput Total 825 ml 860 ml 650 ml BalanceBalance -495 ml -340 ml -550 ml Exam GENERAL: Frail elderly lady on nasal cannula O2 VITAL SIGNS: per chart NECK: Supple. No JVD or lymphadenopathy. CARDIAC EXAM: S1, S2. No added sounds or murmurs. CHEST: Diminished air entry bilaterally with few rales ABDOMEN: Soft, nontender. No guarding or rebound. EXTREMITIES: No cyanosis, clubbing or edema. NEUROLOGIC: Generalized weakness. No focal deficits. Vent Setting Fraction of Inspired Oxygen pe: 30 Results/Medications Result Diagram: 01/14/19 0643 01/14/19 0643 Results 24 hrs Laboratory Tests Test 01/13/19 12:48 01/13/19 17:40 01/13/19 21:42 01/14/19 01:32 Bedside Glucose 112 136 195 147 Test 01/14/19 05:17 01/14/19 06:43 01/14/19 08:10 Bedside Glucose 134 131 White Blood Count 24.0 H Red Blood Count 3.76 L Hemoglobin 11.3 L Hematocrit 35.6 L Mean Corpuscular 94.7 Volume Mean Corpuscular 30.1 Hemoglobin Mean Corpuscular 31.7 L Hemoglobin Concent Red Cell 20.1 H Distribution Width Platelet Count 266 Mean Platelet Volume 9.7 Immature 2.000 H Granulocytes % Neutrophils % 89.8 H Lymphocytes % 4.3 L Monocytes % 2.5 Eosinophils % 1.1 Basophils % 0.3 Nucleated Red Blood 0.3 H Cells % Immature 0.490 H Granulocytes # Neutrophils # 21.5 H Lymphocytes # 1.0 Monocytes # 0.6 Eosinophils # 0.3 Basophils # 0.1 Nucleated Red Blood 0.1 H Cells # Sodium Level 142 Potassium Level 3.5 Chloride Level 107 Carbon Dioxide Level 28 Anion Gap 7 Blood Urea Nitrogen 75 H Creatinine 2.36 H Est Glomerular Filtrat Rate mL/min Glucose Level 128 Calcium Level 8.5 Medications Current Medications IV Flush (NS 3 ml) 3 ml PER PROTOCOL IV ; Start 12/28/18 at 04:30 Ondansetron HCl (Zofran Inj) 4 mg Q6H PRN IV NAUSEA/VOMITING Last administered on 01/13/19at 11:02; Admin Dose 4 MG; Start 12/28/18 at 04:30 Aspirin (Aspirin) 81 mg DAILY PO Last administered on 01/14/19at 08:44; Admin Dose 81 MG; Start 12/28/18 at 09:00 Nitroglycerin (Nitroglycerin (Sl Tab) 0.4 Mg) 1 tab Q5M PRN SL .CHEST PAIN Last administered on 01/10/19at 08:03; Admin Dose 1 TAB; Start 12/28/18 at 04:30 Diagnostic Test (Pha) (Accu-Chek) 1 ea 02 XX Last administered on 01/13/19at 02:00; Admin Dose 1 EA; Start 12/29/18 at 02:00 Miscellaneous Information 1 ea NOTE XX ; Start 12/28/18 at 05:00 Glucose (Glutose) 15 gm Q15M PRN PO DECREASED GLUCOSE; Start 12/28/18 at 05:00 Glucose (Glutose) 22.5 gm Q15M PRN PO DECREASED GLUCOSE; Start 12/28/18 at 05:00 Dextrose (D50w Syringe) 25 ml Q15M PRN IV DECREASED GLUCOSE; Start 12/28/18 at 05:00 Dextrose (D50w Syringe) 50 ml Q15M PRN IV DECREASED GLUCOSE; Start 12/28/18 at 05:00 Glucagon (Glucagen) 1 mg Q15M PRN IM DECREASED GLUCOSE; Start 12/28/18 at 05:00 Glucose (Glutose) 15 gm Q15M PRN BUCCAL DECREASED GLUCOSE; Start 12/28/18 at 05:00 Atorvastatin Calcium (Lipitor) 80 mg HS PO Last administered on 01/13/19at 21:35; Admin Dose 80 MG; Start 12/29/18 at 21:00 Phenol (Cepastat Lozenge) 1 lozenge Q1H PRN MT COUGH Last administered on 01/03/19 13:05; Admin Dose 1 LOZENGE; Start 12/28/18 at 17:30 Escitalopram Oxalate (Lexapro) 10 mg DAILY PO Last administered on 01/14/19 08:43; Admin Dose 10 MG; Start 12/29/18 at 09:30 Risedronate (Actonel) 35 mg Tu@AC BREAKFAST PO ; Start 12/30/18 at 07:00 Mirtazapine (Remeron) 15 mg HS PO Last administered on 01/13/19 21:35; Admin Dose 15 MG; Start 12/29/18 at 21:00 Pantoprazole (Protonix Tab) 40 mg DAILY@06 PO Last administered on 01/14/19 05:19; Admin Dose 40 MG; Start 12/30/18 at 06:00 Docusate Sodium (Colace) 100 mg BID PO Last administered on 01/14/19 08:43; Admin Dose 100 MG; Start 12/29/18 at 18:30 Clopidogrel Bisulfate (plaVIX) 75 mg DAILY PO Last administered on 01/14/19 08:44; Admin Dose 75 MG; Start 01/03/19 at 09:00 Morphine Sulfate (morphine) 1 mg Q1H PRN IV SEVERE PAIN LEVEL 7-10 Last adminis tered on 01/13/19 21:36; Admin Dose 1 MG; Start 01/04/19 at 16:00 Polyethylene Glycol (Miralax) 17 gm BID PRN PO CONSTIPATION Last administered on 01/12/19 09:54; Admin Dose 17 GM; Start 01/06/19 at 13:00 IV Flush (NS 10 ml) 10 ml PRN PRN IV flush; Start 01/06/19 at 18:30 Bisacodyl (Dulcolax Supp) 10 mg DAILY PRN [place] CONSTIPATION; Start 01/06/19 at 19:00 Insulin Aspart (Novolog Insulin Pen) NOVOLOG *MILD* ALGORI... Q4 SC Last administered on 01/14/19 01:39; Admin Dose 1 UNIT; Start 01/07/19 at 05:00 Albuterol/ Ipratropium (Duoneb) 3 ml Q4H RESP THERAPY PRN HHN SHORTNESS OF BREATH Last administered on 01/11/19at 15:42; Admin Dose 3 ML; Start 01/07/19 at 20:00 Carvedilol (Coreg) 12.5 mg BID PO Last administered on 01/14/19at 08:44; Admin Dose 12.5 MG; Start 01/11/19 at 21:00 IV Flush (NS 10 ml) 10 ml PRN PRN IV IV PROTOCOL; Start 01/12/19 at 18:00 Bumetanide (Bumex) 1 mg BID DIURETICS IV Last administered on 01/14/19at 05:19; Admin Dose 1 MG; Start 01/13/19 at 18:00 Megestrol Acetate (Megace Susp) 400 mg BID PO ; Start 01/14/19 at 11:00 Assessment/Plan Hospital Course (Demo Recall) iMP: 1. s/p Acute AR--now with unstable angina 2. CHF ongoing pulmonary edema 3. Hypercapnic Resp Insufficiency 4. Severe CAD 5. Bacteremia 6. Acute and CKD, likely component of contrast nephropathy. worsening renal failure with metabolic acidosis. 7. Possible aspiration pneumonia. Right upper lobe infiltrate 8. Encephalopathy toxic metabolic, improved today. 9. Persistent leukocytosis RECS: 1. Improved urine output with Bumex drip.. 2. Follow I/O's and renal function 3. Aspiration precautions. CT chest findings noted. 4. BiPAP prn, 5. Continue cardiac recommendations post cath placement. 6. PT eval \[facility]\ TONE Sanz MD, [facility] January 14, 2019 12:35
--- NOTE | 2019-01-14 15:24 | PN ---
Date/Time of Note Date/Time of Note DATE: 01/14/19 TIME: 15:21 Assessment/Plan VTE Prophylaxis Risk score (from Ns)>0 risk: 11 SCD applied (from [facility] [place]): Yes Pharmacological prophylaxis: NA/contraindicated Pharm contraindication: renal impairment Assessment/Plan Hospital Course 83 yo [place]-speaking woman with history of dementia, hypertension, dyslipidemia, severe MR and aortic stenosis, arrhythmia who presents with ACS and multi-vessel coronary artery disease. #Acute NE #CAD - STEMI with LBBB - patient had cardiac cath on 12/28, found with: Severe 2 vessel CAD, LAD and RCA, LAD is culprit with francine 2 flow, and cardiomyopathy with LVEF 35%. Again patient also with severe aortic regurgitation and at least moderate mitral regurgitation. - Continue, Lipitor, beta-geovanny, statin, Plavix and Imdur - Now s/p PCI to LAD (01/04) and RCA (01/08) - She does also have severe AI, may need TAVR in the future. #Acute CHF exacerbation - likely due to acute ischemic CAD/STEMI - currently on IV lasix -Status post nitro gtt #Bacteremia: 2 out of 2 bottles positive for coagulase-negative staph - Finished 7 days of zosyn+vanco. -Short course of antibiotics given due to drug rash -Repeat blood cultures are negative #Rash-improved - Erythematous, macular rash on lower abdomen and part of chest noted 01/07 - May be related to transfusion, or drug reaction. - Got decadon, benadryl, pepcid without significant improvement but has not improved - Stopped zosyn and vanco, this may have been a delayed drug reaction. #WILLIAM: Patient was having poor urine output but renal function has improved and urine output has increased -Status post Bumex drip and now transitioned to scheduled Bumex -Nephrology following -No CRISTINO or ARB at this time #Acute on chronic encephalopathy -Patient with baseline dementia but mentation has worsened likely secondary to delirium and steroids -Have discontinued steroids #Abdominal pain likely secondary to mild ileus -KUB does show few mildly distended air filled loops of small bowel -Follow-up on abdominal ultrasound Prophylaxis: SCDs DC planning: Plan is to DC to [facility] or if improves to [facility] facility Result Diagram: 01/14/19 0643 01/14/19 0643 Results 24hrs Laboratory Tests Test 01/13/19 17:40 01/13/19 21:42 01/14/19 01:32 01/14/19 05:17 Bedside Glucose 136 195 147 134 Test 01/14/19 06:43 01/14/19 08:10 01/14/19 12:35 White Blood Count 24.0 H Red Blood Count 3.76 L Hemoglobin 11.3 L Hematocrit 35.6 L Mean Corpuscular 94.7 Volume Mean Corpuscular 30.1 Hemoglobin Mean Corpuscular 31.7 L Hemoglobin Concent Red Cell 20.1 H Distribution Width Platelet Count 266 Mean Platelet Volume 9.7 Immature 2.000 H Granulocytes % Neutrophils % 89.8 H Lymphocytes % 4.3 L Monocytes % 2.5 Eosinophils % 1.1 Basophils % 0.3 Nucleated Red Blood 0.3 H Cells % Immature 0.490 H Granulocytes # Neutrophils # 21.5 H Lymphocytes # 1.0 Monocytes # 0.6 Eosinophils # 0.3 Basophils # 0.1 Nucleated Red Blood 0.1 H Cells # Sodium Level 142 Potassium Level 3.5 Chloride Level 107 Carbon Dioxide Level 28 Anion Gap 7 Blood Urea Nitrogen 75 H Creatinine 2.36 H Est Glomerular Filtrat Rate mL/min Glucose Level 128 Calcium Level 8.5 Bedside Glucose 131 168 Subjective 24 Hr Interval Summary Gastrointestinal: pain Exam/Review of Systems Exam Vitals Vital Signs Date Temp Pulse Resp B/P (MAP) Pulse Ox O2 O2 Flow FiO2 Time Delivery Rate 01/14/19 82 12:14 01/14/19 97.7 19 110/52 96 11:02 (71) 01/14/19 Nasal 6.0 08:00 Cannula 01/12/19 50 01:07 Intake and Output 01/13/19 01/13/19 01/14/19 1515:00 23:00 07:00 IntakeIntake Total 330 ml 520 ml 100 ml OutputOutput Total 825 ml 860 ml 650 ml BalanceBalance -495 ml -340 ml -550 ml Constitutional: alert Psych: confusion Respiratory: clear to auscultation Cardiovascular: regular rate and rhythm Gastrointestinal: soft; No distended Musculoskeletal: nl extremities to inspection Results Results 24hrs Laboratory Tests Test 01/13/19 17:40 01/13/19 21:42 01/14/19 01:32 01/14/19 05:17 Bedside Glucose 136 195 147 134 Test 01/14/19 06:43 01/14/19 08:10 01/14/19 12:35 White Blood Count 24.0 H Red Blood Count 3.76 L Hemoglobin 11.3 L Hematocrit 35.6 L Mean Corpuscular 94.7 Volume Mean Corpuscular 30.1 Hemoglobin Mean Corpuscular 31.7 L Hemoglobin Concent Red Cell 20.1 H Distribution Width Platelet Count 266 Mean Platelet Volume 9.7 Immature 2.000 H Granulocytes % Neutrophils % 89.8 H Lymphocytes % 4.3 L Monocytes % 2.5 Eosinophils % 1.1 Basophils % 0.3 Nucleated Red Blood 0.3 H Cells % Immature 0.490 H Granulocytes # Neutrophils # 21.5 H Lymphocytes # 1.0 Monocytes # 0.6 Eosinophils # 0.3 Basophils # 0.1 Nucleated Red Blood 0.1 H Cells # Sodium Level 142 Potassium Level 3.5 Chloride Level 107 Carbon Dioxide Level 28 Anion Gap 7 Blood Urea Nitrogen 75 H Creatinine 2.36 H Est Glomerular Filtrat Rate mL/min Glucose Level 128 Calcium Level 8.5 Bedside Glucose 131 168 Medications Medication Current Medications IV Flush (NS 3 ml) 3 ml PER PROTOCOL IV ; Start 12/28/18 at 04:30 Ondansetron HCl (Zofran Inj) 4 mg Q6H PRN IV NAUSEA/VOMITING Last administered on 01/13/19at 11:02; Admin Dose 4 MG; Start 12/28/18 at 04:30 Aspirin (Aspirin) 81 mg DAILY PO Last administered on 01/14/19at 08:44; Admin Dose 81 MG; Start 12/28/18 at 09:00 Nitroglycerin (Nitroglycerin (Sl Tab) 0.4 Mg) 1 tab Q5M PRN SL .CHEST PAIN Last administered on 01/10/19at 08:03; Admin Dose 1 TAB; Start 12/28/18 at 04:30 Diagnostic Test (Pha) (Accu-Chek) 1 ea 02 XX Last administered on 01/13/19at 02:00; Admin Dose 1 EA; Start 12/29/18 at 02:00 Miscellaneous Information 1 ea NOTE XX ; Start 12/28/18 at 05:00 Glucose (Glutose) 15 gm Q15M PRN PO DECREASED GLUCOSE; Start 12/28/18 at 05:00 Glucose (Glutose) 22.5 gm Q15M PRN PO DECREASED GLUCOSE; Start 12/28/18 at 05:00 Dextrose (D50w Syringe) 25 ml Q15M PRN IV DECREASED GLUCOSE; Start 12/28/18 at 05:00 Dextrose (D50w Syringe) 50 ml Q15M PRN IV DECREASED GLUCOSE; Start 12/28/18 at 05:00 Glucagon (Glucagen) 1 mg Q15M PRN IM DECREASED GLUCOSE; Start 12/28/18 at 05:00 Glucose (Glutose) 15 gm Q15M PRN BUCCAL DECREASED GLUCOSE; Start 12/28/18 at 05:00 Atorvastatin Calcium (Lipitor) 80 mg HS PO Last administered on 01/13/19 21:35; Admin Dose 80 MG; Start 12/29/18 at 21:00 Phenol (Cepastat Lozenge) 1 lozenge Q1H PRN MT COUGH Last administered on 01/03/19at 13:05; Admin Dose 1 LOZENGE; Start 12/28/18 at 17:30 Escitalopram Oxalate (Lexapro) 10 mg DAILY PO Last administered on 01/14/19 08:43; Admin Dose 10 MG; Start 12/29/18 at 09:30 Risedronate (Actonel) 35 mg Tu@AC BREAKFAST PO ; Start 12/30/18 at 07:00 Mirtazapine (Remeron) 15 mg HS PO Last administered on 01/13/19 21:35; Admin Dose 15 MG; Start 12/29/18 at 21:00 Pantoprazole (Protonix Tab) 40 mg DAILY@06 PO Last administered on 01/14/19 05:19; Admin Dose 40 MG; Start 12/30/18 at 06:00 Docusate Sodium (Colace) 100 mg BID PO Last administered on 01/14/19 08:43; Admin Dose 100 MG; Start 12/29/18 at 18:30 Clopidogrel Bisulfate (plaVIX) 75 mg DAILY PO Last administered on 01/14/19 08:44; Admin Dose 75 MG; Start 01/03/19 at 09:00 Morphine Sulfate (morphine) 1 mg Q1H PRN IV SEVERE PAIN LEVEL 7-10 Last administered on 01/13/19 21:36; Admin Dose 1 MG; Start 01/04/19 at 16:00 Polyethylene Glycol (Miralax) 17 gm BID PRN PO CONSTIPATION Last administered on 01/12/19 09:54; Admin Dose 17 GM; Start 01/06/19 at 13:00 IV Flush (NS 10 ml) 10 ml PRN PRN IV flush; Start 01/06/19 at 18:30 Bisacodyl (Dulcolax Supp) 10 mg DAILY PRN [place] CONSTIPATION; Start 01/06/19 at 19:00 Insulin Aspart (Novolog Insulin Pen) NOVOLOG *MILD* ALGORI... Q4 SC Last administered on 01/14/19 12:42; Admin Dose 1 UNIT; Start 01/07/19 at 05:00 Albuterol/ Ipratropium (Duoneb) 3 ml Q4H RESP THERAPY PRN HHN SHORTNESS OF BREATH Last administered on 01/11/19 15:42; Admin Dose 3 ML; Start 01/07/19 at 20:00 Carvedilol (Coreg) 12.5 mg BID PO Last administered on 01/14/19 08:44; Admin Dose 12.5 MG; Start 01/11/19 at 21:00 IV Flush (NS 10 ml) 10 ml PRN PRN IV IV PROTOCOL; Start 01/12/19 at 18:00 Bumetanide (Bumex) 1 mg BID DIURETICS IV Last administered on 01/14/19 05:19; Admin Dose 1 MG; Start 01/13/19 at 18:00 Megestrol Acetate (Megace Susp) 400 mg BID PO Last administered on 01/14/19 12:34; Admin Dose 400 MG; Start 01/14/19 at 11:00 DELORIS EVANGELISTA January 14, 2019 15:24
[2019-01-14] MEDS: morphine 2 MG INJ IV PRN (16:12)
[2019-01-14] MEDS: POLYETHYLENE GLYCOL 17 GM PACKET PO PRN (17:38)
--- NOTE | 2019-01-14 19:24 | CONS ---
Assessment/Plan Assessment/Plan Assessment/Plan (Daily) 1. Acute kidney injury on CKD III 2/2 Hemodynamics from CHF + NSTEMI - worsening renal failure 2. Hypokalemia 3. Hypernatremia 4. acute NSTEMI s/p LHC showed multivessel obstructive CAD - s/p Successful PTCA and stenting of proximal left anterior descending artery using a 3 x 20 mm Synergy drug-eluting stent on 01/04/19- s/p LHC with proximal RCA stenting on 01/08/19 5. CAD multivessel obstructive 6. Anemia of Chronic disease s/p 2 U PRBC on 01/07/19 Plan: BUN/Cr improivng, K low, replaced agressively for today, Bumex 1 mg IV BID No plan for HD at this time for now will follow up Consultation Date/Type/Reason Admit Date/Time December 28, 2018 at 03:23 Initial Consult Date 12/28/18 Type of Consult NEPHROLOGY Requesting Provider: KRYSTAL BERNARD Date/Time of Note DATE: 01/14/19 TIME: 19:24 Exam/Review of Systems Exam Vitals Vital Signs Date Temp Pulse Resp B/P (MAP) Pulse Ox O2 O2 Flow FiO2 Time Delivery Rate 01/14/19 4.0 17:17 01/14/19 80 16:24 01/14/19 98.2 18 110/58 97 15:45 (75) 01/14/19 Nasal 08:00 Cannula 01/12/19 50 01:07 Intake and Output 01/13/19 01/13/19 01/14/19 1515:00 23:00 07:00 IntakeIntake Total 330 ml 520 ml 100 ml OutputOutput Total 825 ml 860 ml 650 ml BalanceBalance -495 ml -340 ml -550 ml Results Result Diagram: 01/14/19 0643 01/14/19 0643 Results 24hrs Laboratory Tests Test 01/13/19 21:42 01/14/19 01:32 01/14/19 05:17 01/14/19 06:43 Bedside Glucose 195 147 134 White Blood Count 24.0 H Red Blood Count 3.76 L Hemoglobin 11.3 L Hematocrit 35.6 L Mean Corpuscular 94.7 Volume Mean Corpuscular 30.1 Hemoglobin Mean Corpuscular 31.7 L Hemoglobin Concent Red Cell 20.1 H Distribution Width Platelet Count 266 Mean Platelet Volume 9.7 Immature 2.000 H Granulocytes % Neutrophils % 89.8 H Lymphocytes % 4.3 L Monocytes % 2.5 Eosinophils % 1.1 Basophils % 0.3 Nucleated Red Blood 0.3 H Cells % Immature 0.490 H Granulocytes # Neutrophils # 21.5 H Lymphocytes # 1.0 Monocytes # 0.6 Eosinophils # 0.3 Basophils # 0.1 Nucleated Red Blood 0.1 H Cells # Sodium Level 142 Potassium Level 3.5 Chloride Level 107 Carbon Dioxide Level 28 Anion Gap 7 Blood Urea Nitrogen 75 H Creatinine 2.36 H Est Glomerular Filtrat Rate mL/min Glucose Level 128 Calcium Level 8.5 Test 01/14/19 08:10 01/14/19 12:35 01/14/19 17:34 Bedside Glucose 131 168 116 Medications Medication Current Medications IV Flush (NS 3 ml) 3 ml PER PROTOCOL IV ; Start 12/28/18 at 04:30 Ondansetron HCl (Zofran Inj) 4 mg Q6H PRN IV NAUSEA/VOMITING Last administered on 01/13/19at 11:02; Admin Dose 4 MG; Start 12/28/18 at 04:30 Aspirin (Aspirin) 81 mg DAILY PO Last administered on 01/14/19at 08:44; Admin Dose 81 MG; Start 12/28/18 at 09:00 Nitroglycerin (Nitroglycerin (Sl Tab) 0.4 Mg) 1 tab Q5M PRN SL .CHEST PAIN Last administered on 01/10/19at 08:03; Admin Dose 1 TAB; Start 12/28/18 at 04:30 Diagnostic Test (Pha) (Accu-Chek) 1 ea 02 XX Last administered on 01/13/19at 02:00; Admin Dose 1 EA; Start 12/29/18 at 02:00 Miscellaneous Information 1 ea NOTE XX ; Start 12/28/18 at 05:00 Glucose (Glutose) 15 gm Q15M PRN PO DECREASED GLUCOSE; Start 12/28/18 at 05:00 Glucose (Glutose) 22.5 gm Q15M PRN PO DECREASED GLUCOSE; Start 12/28/18 at 05:00 Dextrose (D50w Syringe) 25 ml Q15M PRN IV DECREASED GLUCOSE; Start 12/28/18 at 05:00 Dextrose (D50w Syringe) 50 ml Q15M PRN IV DECREASED GLUCOSE; Start 12/28/18 at 05:00 Glucagon (Glucagen) 1 mg Q15M PRN IM DECREASED GLUCOSE; Start 12/28/18 at 05:00 Glucose (Glutose) 15 gm Q15M PRN BUCCAL DECREASED GLUCOSE; Start 12/28/18 at 0 5:00 Atorvastatin Calcium (Lipitor) 80 mg HS PO Last administered on 01/13/19at 21:35; Admin Dose 80 MG; Start 12/29/18 at 21:00 Phenol (Cepastat Lozenge) 1 lozenge Q1H PRN MT COUGH Last administered on 01/03/19 13:05; Admin Dose 1 LOZENGE; Start 12/28/18 at 17:30 Escitalopram Oxalate (Lexapro) 10 mg DAILY PO Last administered on 01/14/19 08:43; Admin Dose 10 MG; Start 12/29/18 at 09:30 Risedronate (Actonel) 35 mg Tu@AC BREAKFAST PO ; Start 12/30/18 at 07:00 Mirtazapine (Remeron) 15 mg HS PO Last administered on 01/13/19at 21:35; Admin Dose 15 MG; Start 12/29/18 at 21:00 Pantoprazole (Protonix Tab) 40 mg DAILY@06 PO Last administered on 01/14/19 05:19; Admin Dose 40 MG; Start 12/30/18 at 06:00 Docusate Sodium (Colace) 100 mg BID PO Last administered on 01/14/19 08:43; Admin Dose 100 MG; Start 12/29/18 at 18:30 Clopidogrel Bisulfate (plaVIX) 75 mg DAILY PO Last administered on 01/14/19 08:44; Admin Dose 75 MG; Start 01/03/19 at 09:00 Morphine Sulfate (morphine) 1 mg Q1H PRN IV SEVERE PAIN LEVEL 7-10 Last administered on 01/14/19 16:12; Admin Dose 1 MG; Start 01/04/19 at 16:00 Polyethylene Glycol (Miralax) 17 gm BID PRN PO CONSTIPATION Last administered on 01/14/19 17:38; Admin Dose 17 GM; Start 01/06/19 at 13:00 IV Flush (NS 10 ml) 10 ml PRN PRN IV flush; Start 01/06/19 at 18:30 Bisacodyl (Dulcolax Supp) 10 mg DAILY PRN [place] CONSTIPATION; Start 01/06/19 at 19:00 Insulin Aspart (Novolog Insulin Pen) NOVOLOG *MILD* ALGORI... Q4 SC Last administered on 01/14/19 12:42; Admin Dose 1 UNIT; Start 01/07/19 at 05:00 Albuterol/ Ipratropium (Duoneb) 3 ml Q4H RESP THERAPY PRN HHN SHORTNESS OF BREATH Last administered on 01/11/19 15:42; Admin Dose 3 ML; Start 01/07/19 at 20:00 Carvedilol (Coreg) 12.5 mg BID PO Last administered on 01/14/19 08:44; Admin Dose 12.5 MG; Start 01/11/19 at 21:00 IV Flush (NS 10 ml) 10 ml PRN PRN IV IV PROTOCOL; Start 01/12/19 at 18:00 Bumetanide (Bumex) 1 mg BID DIURETICS IV Last administered on 01/14/19at 17:35; Admin Dose 1 MG; Start 01/13/19 at 18:00 PATTI CALLEJAS MD January 14, 2019 19:24
[2019-01-14] MEDS ORDERED: INSULIN ASPART [NOVOLOG] 3 ML PEN SC SCH (21:00)
[2019-01-14] MEDS: Insulin NOVOLOG SS MILD Algorithm (SS with meals and bedtime) SC SCH (21:00)
[2019-01-14] MEDS: ATORVASTATIN 80 MG TAB PO SCH (21:43)
[2019-01-14] MEDS: MIRTAZAPINE 15 MG TAB PO SCH (21:43)
[2019-01-15] VITALS (11 sets, daily range): BP systolic 111–126; BP diastolic 44–56; PULSE 66–89; RESP 17–20
[2019-01-15] MEDS: ACCU-CHEK XX SCH (01:59)
[2019-01-15] MEDS: PANTOPRAZOLE (EC) 40 MG TAB PO SCH (06:27)
[2019-01-15] MEDS: BUMETANIDE 1 MG INJ IV SCH ×2 (06:27→17:43)
[2019-01-15] MEDS: Insulin NOVOLOG SS MILD Algorithm (SS with meals and bedtime) SC SCH ×4 (08:10→20:52)
[2019-01-15] MEDS: ASPIRIN 81 MG TAB PO SCH (08:32)
[2019-01-15] MEDS: DOCUSATE SODIUM 100 MG CAP PO SCH ×2 (08:32→20:48)
[2019-01-15] MEDS: ESCITALOPRAM 10 MG TAB PO SCH (08:32)
[2019-01-15] MEDS: POLYETHYLENE GLYCOL 17 GM PACKET PO PRN (08:32)
[2019-01-15] MEDS: CLOPIDOGREL 75 MG TAB PO SCH (08:32)
--- NOTE | 2019-01-15 09:35 | CONS ---
Assessment/Plan Assessment/Plan Assessment/Plan (Daily) Patient is on 5 L nasal cannula per minute. Assessment and recommendations; 1. Patient admitted for CHF exacerbation with interval improvement. 2. Status post treatment for pneumonia. 3. Likely chronic lung disease. 4. Brief run of A. fib 5. Acute renal injury with improving renal function. 6. Coagulase negative negative staph aureus bacteremia with most recent cultures being negative. 7. History of hypertension. Continue current supportive care. Patient awaiting Green evaluation. I did have a detailed discussion with the patient's at bedside and answered all his questions. Consultation Date/Type/Reason Admit Date/Time December 28, 2018 at 03:23 Initial Consult Date 01/12/19 Type of Consult Pulmonary Reason for Consultation Patient's condition is fairly stable. However she just had a very brief run of A. fib with conversion to sinus rhythm spontaneously. Patient denies any shortness of breath at rest. Any orthopnea. Any chest pain or coughing. General exam; elderly lady, laying comfortably in bed. Awake and alert. Currently in no distress. Requesting Provider: KRYSTAL BERNARD Date/Time of Note DATE: 01/15/19 TIME: 09:32 Exam/Review of Systems Exam Vitals Vital Signs Date Temp Pulse Resp B/P (MAP) Pulse Ox O2 O2 Flow FiO2 Time Delivery Rate 01/15/19 72 08:10 01/15/19 Nasal 5.0 07:52 Cannula 01/15/19 97.8 19 126/54 96 07:16 (78) 01/12/19 50 01:07 Intake and Output 01/14/19 01/14/19 01/15/19 1515:00 23:00 07:00 IntakeIntake Total 300 ml 200 ml OutputOutput Total 400 ml 800 ml BalanceBalance -100 ml -600 ml Exam H EENT exam; supple neck, positive JVD. No lymphadenopathy. Midline trachea. No thyromegaly. Patient has few missing teeth. Chest exam; diminished breath sounds bilaterally. No added sounds. S1-S2 audible, no murmurs. Regular rhythm. Abdomen exam; soft, nontender. No organomegaly. Bowel sounds audible. Extremity exam; no peripheral edema or clubbing. 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 Results Result Diagram: 01/15/1962101/15/19621 Results 24hrs Laboratory Tests Test 01/14/19 12:35 01/14/19 17:34 01/14/19 21:41 01/15/19 06:22 Bedside Glucose 168 116 145 White Blood Count 18.8 #H Red Blood Count 3.33 L Hemoglobin 10.1 L Hematocrit 32.1 L Mean Corpuscular 96.4 Volume Mean Corpuscular 30.3 Hemoglobin Mean Corpuscular 31.5 L Hemoglobin Concent Red Cell 19.8 H Distribution Width Platelet Count 223 Mean Platelet Volume 10.0 Immature 1.800 H Granulocytes % Neutrophils % 86.6 H Lymphocytes % 6.4 L Monocytes % 3.3 Eosinophils % 1.6 Basophils % 0.3 Nucleated Red Blood 0.0 Cells % Immature 0.340 H Granulocytes # Neutrophils # 16.3 H Lymphocytes # 1.2 Monocytes # 0.6 Eosinophils # 0.3 Basophils # 0.1 Nucleated Red Blood 0.0 Cells # Sodium Level 143 Potassium Level 3.2 L Chloride Level 107 Carbon Dioxide Level 32 H Anion Gap 4 L Blood Urea Nitrogen 66 H Creatinine 1.74 H Est Glomerular Filtrat Rate mL/min Glucose Level 103 Calcium Level 8.1 L Test 01/15/19 07:49 Bedside Glucose 153 Medications Medication Current Medications IV Flush (NS 3 ml) 3 ml PER PROTOCOL IV ; Start 12/28/18 at 04:30 Ondansetron HCl (Zofran Inj) 4 mg Q6H PRN IV NAUSEA/VOMITING Last administered on 01/13/19at 11:02; Admin Dose 4 MG; Start 12/28/18 at 04:30 Aspirin (Aspirin) 81 mg DAILY PO Last administered on 01/15/19at 08:32; Admin Dose 81 MG; Start 12/28/18 at 09:00 Nitroglycerin (Nitroglycerin (Sl Tab) 0.4 Mg) 1 tab Q5M PRN SL .CHEST PAIN Last administered on 01/10/19at 08:03; Admin Dose 1 TAB; Start 12/28/18 at 04:30 Diagnostic Test (Pha) (Accu-Chek) 1 ea 02 XX Last administered on 01/13/19at 02:00; Admin Dose 1 EA; Start 12/29/18 at 02:00 Miscellaneous Information 1 ea NOTE XX ; Start 12/28/18 at 05:00 Glucose (Glutose) 15 gm Q15M PRN PO DECREASED GLUCOSE; Start 12/28/18 at 05:00 Glucose (Glutose) 22.5 gm Q15M PRN PO DECREASED GLUCOSE; Start 12/28/18 at 05:00 Dextrose (D50w Syringe) 25 ml Q15M PRN IV DECREASED GLUCOSE; Start 12/28/18 at 05:00 Dextrose (D50w Syringe) 50 ml Q15M PRN IV DECREASED GLUCOSE; Start 12/28/18 at 05:00 Glucagon (Glucagen) 1 mg Q15M PRN IM DECREASED GLUCOSE; Start 12/28/18 at 05:00 Glucose (Glutose) 15 gm Q15M PRN BUCCAL DECREASED GLUCOSE; Start 12/28/18 at 05:00 Atorvastatin Calcium (Lipitor) 80 mg HS PO Last administered on 01/14/19 21:43; Admin Dose 80 MG; Start 12/29/18 at 21:00 Phenol (Cepastat Lozenge) 1 lozenge Q1H PRN MT COUGH Last administered on 01/03/19at 13:05; Admin Dose 1 LOZENGE; Start 12/28/18 at 17:30 Escitalopram Oxalate (Lexapro) 10 mg DAILY PO Last administered on 01/15/19 08:32; Admin Dose 10 MG; Start 12/29/18 at 09:30 Risedronate (Actonel) 35 mg Tu@AC BREAKFAST PO ; Start 12/30/18 at 07:00 Mirtazapine (Remeron) 15 mg HS PO Last administered on 01/14/19 21:43; Admin Dose 15 MG; Start 12/29/18 at 21:00 Pantoprazole (Protonix Tab) 40 mg DAILY@06 PO Last administered on 01/15/19 06:27; Admin Dose 40 MG; Start 12/30/18 at 06:00 Docusate Sodium (Colace) 100 mg BID PO Last administered on 01/15/19 08:32; Admin Dose 100 MG; Start 12/29/18 at 18:30 Clopidogrel Bisulfate (plaVIX) 75 mg DAILY PO Last administered on 01/15/19 08:32; Admin Dose 75 MG; Start 01/03/19 at 09:00 Morphine Sulfate (morphine) 1 mg Q1H PRN IV SEVERE PAIN LEVEL 7-10 Last administered on 01/14/19 16:12; Admin Dose 1 MG; Start 01/04/19 at 16:00 Polyethylene Glycol (Miralax) 17 gm BID PRN PO CONSTIPATION Last administered on 01/15/19 08:32; Admin Dose 17 GM; Start 01/06/19 at 13:00 IV Flush (NS 10 ml) 10 ml PRN PRN IV flush; Start 01/06/19 at 18:30 Bisacodyl (Dulcolax Supp) 10 mg DAILY PRN [place] CONSTIPATION; Start 01/06/19 at 19:00 Albuterol/ Ipratropium (Duoneb) 3 ml Q4H RESP THERAPY PRN HHN SHORTNESS OF BREATH Last administered on 01/11/19 15:42; Admin Dose 3 ML; Start 01/07/19 at 20:00 Carvedilol (Coreg) 12.5 mg BID PO Last administered on 01/15/19 08:32; Admin Dose 12.5 MG; Start 01/11/19 at 21:00 IV Flush (NS 10 ml) 10 ml PRN PRN IV IV PROTOCOL; Start 01/12/19 at 18:00 Bumetanide (Bumex) 1 mg BID DIURETICS IV Last administered on 01/15/19 06:27; Admin Dose 1 MG; Start 01/13/19 at 18:00 Insulin Aspart (Novolog Insulin Pen) (Adult SC Insulin - Mild Algorithm)... AC MEALS AND BEDTIME SC Last administered on 01/15/19 08:10; Admin Dose 1 UNIT; Start 01/14/19 at 21:00 BARBARA HOOVER January 15, 2019 09:35
[2019-01-15] MEDS: POTASSIUM CHLORIDE 100 ML IVPB SCH ×2 (12:57→15:02)
--- NOTE | 2019-01-15 14:02 | CONS ---
Assessment/Plan Assessment/Plan Assessment/Plan (Daily) 1. Acute kidney injury on CKD III 2/2 Hemodynamics from CHF + NSTEMI - worsening renal failure 2. Hypokalemia 3. Hypernatremia 4. acute NSTEMI s/p LHC showed multivessel obstructive CAD - s/p Successful PTCA and stenting of proximal left anterior descending artery using a 3 x 20 mm Synergy drug-eluting stent on 01/04/19- s/p LHC with proximal RCA stenting on 01/08/19 5. CAD multivessel obstructive 6. Anemia of Chronic disease s/p 2 U PRBC on 01/07/19 Plan: BUN/Cr 66/1.74, K 3.4, BP stable, downgraded to telemetry floor - change Bumex to 1mg IV Daily No plan for HD at this time for now US abdomen showed distended stomach vs mass, recommended CT scan will follow up Consultation Date/Type/Reason Admit Date/Time December 28, 2018 at 03:23 Initial Consult Date 12/28/18 Type of Consult NEPHROLOGY Requesting Provider: KRYSTAL BERNARD Date/Time of Note DATE: 01/15/19 TIME: 14:02 24 HR Interval Summary Free Text/Dictation BUN/Cr 66/1.74, K 3.4, BP stable, downgraded to telemetry floor Exam/Review of Systems Exam Vitals Vital Signs Date Temp Pulse Resp B/P (MAP) Pulse Ox O2 O2 Flow FiO2 Time Delivery Rate 01/15/19 73 12:44 01/15/19 97.4 18 111/51 96 11:33 (71) 01/15/19 Nasal 5.0 07:52 Cannula 01/12/19 50 01:07 Intake and Output 01/14/19 01/14/19 01/15/19 1515:00 23:00 07:00 IntakeIntake Total 300 ml 200 ml OutputOutput Total 400 ml 800 ml BalanceBalance -100 ml -600 ml Constitutional: alert Eyes: nl conjunctiva Neck: supple, non-tender Respiratory: clear to auscultation, diminished breath sounds Cardiovascular: regular rate and rhythm, nl pulses Gastrointestinal: soft, non-tender Extremities: normal pulses Neurological: INTERIOR DECORATOR PAPERHANGING II-XII intact Results Result Diagram: 01/15/1922 01/15/19 0622 Results 24hrs Laboratory Tests Test 01/14/19 17:34 01/14/19 21:41 01/15/19 06:22 01/15/19 07:49 Bedside Glucose 116 145 153 White Blood Count 18.8 #H Red Blood Count 3.33 L Hemoglobin 10.1 L Hematocrit 32.1 L Mean Corpuscular 96.4 Volume Mean Corpuscular 30.3 Hemoglobin Mean Corpuscular 31.5 L Hemoglobin Concent Red Cell 19.8 H Distribution Width Platelet Count 223 Mean Platelet Volume 10.0 Immature 1.800 H Granulocytes % Neutrophils % 86.6 H Lymphocytes % 6.4 L Monocytes % 3.3 Eosinophils % 1.6 Basophils % 0.3 Nucleated Red Blood 0.0 Cells % Immature 0.340 H Granulocytes # Neutrophils # 16.3 H Lymphocytes # 1.2 Monocytes # 0.6 Eosinophils # 0.3 Basophils # 0.1 Nucleated Red Blood 0.0 Cells # Sodium Level 143 Potassium Level 3.2 L Chloride Level 107 Carbon Dioxide Level 32 H Anion Gap 4 L Blood Urea Nitrogen 66 H Creatinine 1.74 H Est Glomerular Filtrat Rate mL/min Glucose Level 103 Calcium Level 8.1 L Test 01/15/19 12:17 Bedside Glucose 135 Medications Medication Current Medications IV Flush (NS 3 ml) 3 ml PER PROTOCOL IV ; Start 12/28/18 at 04:30 Ondansetron HCl (Zofran Inj) 4 mg Q6H PRN IV NAUSEA/VOMITING Last administered on 01/13/19at 11:02; Admin Dose 4 MG; Start 12/28/18 at 04:30 Aspirin (Aspirin) 81 mg DAILY PO Last administered on 01/15/19at 08:32; Admin Dose 81 MG; Start 12/28/18 at 09:00 Nitroglycerin (Nitroglycerin (Sl Tab) 0.4 Mg) 1 tab Q5M PRN SL .CHEST PAIN Last administered on 01/10/19at 08:03; Admin Dose 1 TAB; Start 12/28/18 at 04:30 Diagnostic Test (Pha) (Accu-Chek) 1 ea 02 XX Last administered on 01/13/19at 02:00; Admin Dose 1 EA; Start 12/29/18 at 02:00 Miscellaneous Information 1 ea NOTE XX ; Start 12/28/18 at 05:00 Glucose (Glutose) 15 gm Q15M PRN PO DECREASED GLUCOSE; Start 12/28/18 at 05:00 Glucose (Glutose) 22.5 gm Q15M PRN PO DECREASED GLUCOSE; Start 12/28/18 at 05:00 Dextrose (D50w Syringe) 25 ml Q15M PRN IV DECREASED GLUCOSE; Start 12/28/18 at 05:00 Dextrose (D50w Syringe) 50 ml Q15M PRN IV DECREASED GLUCOSE; Start 12/28/18 at 05:00 Glucagon (Glucagen) 1 mg Q15M PRN IM DECREASED GLUCOSE; Start 12/28/18 at 05:00 Glucose (Glutose) 15 gm Q15M PRN BUCCAL DECREASED GLUCOSE; Start 12/28/18 at 05:00 Atorvastatin Calcium (Lipitor) 80 mg HS PO Last administered on 01/14/19 21:43; Admin Dose 80 MG; Start 12/29/18 at 21:00 Phenol (Cepastat Lozenge) 1 lozenge Q1H PRN MT COUGH Last administered on 01/03/19at 13:05; Admin Dose 1 LOZENGE; Start 12/28/18 at 17:30 Escitalopram Oxalate (Lexapro) 10 mg DAILY PO Last administered on 01/15/19 08:32; Admin Dose 10 MG; Start 12/29/18 at 09:30 Risedronate (Actonel) 35 mg Tu@AC BREAKFAST PO ; Start 12/30/18 at 07:00 Mirtazapine (Remeron) 15 mg HS PO Last administered on 01/14/19 21:43; Admin Dose 15 MG; Start 12/29/18 at 21:00 Pantoprazole (Protonix Tab) 40 mg DAILY@06 PO Last administered on 01/15/19 06:27; Admin Dose 40 MG; Start 12/30/18 at 06:00 Docusate Sodium (Colace) 100 mg BID PO Last administered on 01/15/19 08:32; Admin Dose 100 MG; Start 12/29/18 at 18:30 Clopidogrel Bisulfate (plaVIX) 75 mg DAILY PO Last administered on 01/15/19 08:32; Admin Dose 75 MG; Start 01/03/19 at 09:00 Morphine Sulfate (morphine) 1 mg Q1H PRN IV SEVERE PAIN LEVEL 7-10 Last administered on 01/14/19at 16:12; Admin Dose 1 MG; Start 01/04/19 at 16:00 Polyethylene Glycol (Miralax) 17 gm BID PRN PO CONSTIPATION Last administered on 01/15/19 08:32; Admin Dose 17 GM; Start 01/06/19 at 13:00 IV Flush (NS 10 ml) 10 ml PRN PRN IV flush; Start 01/06/19 at 18:30 Bisacodyl (Dulcolax Supp) 10 mg DAILY PRN [place] CONSTIPATION; Start 01/06/19 at 19:00 Albuterol/ Ipratropium (Duoneb) 3 ml Q4H RESP THERAPY PRN HHN SHORTNESS OF BREATH Last administered on 01/11/19 15:42; Admin Dose 3 ML; Start 01/07/19 at 20:00 Carvedilol (Coreg) 12.5 mg BID PO Last administered on 01/15/19 08:32; Admin Dose 12.5 MG; Start 01/11/19 at 21:00 IV Flush (NS 10 ml) 10 ml PRN PRN IV IV PROTOCOL; Start 01/12/19 at 18:00 Bumetanide (Bumex) 1 mg BID DIURETICS IV Last administered on 01/15/19 06:27; Admin Dose 1 MG; Start 01/13/19 at 18:00 Insulin Aspart (Novolog Insulin Pen) (Adult SC Insulin - Mild Algorithm)... AC MEALS AND BEDTIME SC Last administered on 01/15/19 08:10; Admin Dose 1 UNIT; Start 01/14/19 at 21:00 Potassium Chloride 100 ml @ 50 mls/hr Q2H IVPB Last administered on 01/15/19 12:57; Admin Dose 50 MLS/HR; Start 01/15/19 at 11:30; Stop 01/15/19 at 15:29 PATTI CALLEJAS MD January 15, 2019 14:02
--- NOTE | 2019-01-15 19:14 | PN ---
Date/Time of Note Date/Time of Note DATE: 01/15/19 TIME: 19:11 Assessment/Plan VTE Prophylaxis Risk score (from Ns)>0 risk: 9 SCD applied (from [facility] [place]): Yes Pharmacological prophylaxis: NA/contraindicated Pharm contraindication: renal impairment Assessment/Plan Hospital Course 83 yo Fijian-speaking woman with history of dementia, hypertension, dyslipidemia, severe MR and aortic stenosis, arrhythmia who presents with ACS and multi-vessel coronary artery disease. #Acute [place] #CAD - STEMI with LBBB - patient had cardiac cath on 12/28, found with: Severe 2 vessel CAD, LAD and RCA, LAD is culprit with francine 2 flow, and cardiomyopathy with LVEF 35%. Again patient also with severe aortic regurgitation and at least moderate mitral regurgitation. - Continue, Lipitor, beta-geovanny, statin, Plavix and Imdur - Now s/p PCI to LAD (01/04) and RCA (01/08) - She does also have severe AI, may need TAVR in the future. #Acute CHF exacerbation - likely due to acute ischemic CAD/STEMI - currently on IV lasix -Status post nitro gtt #Bacteremia: 2 out of 2 bottles positive for coagulase-negative staph - Finished 7 days of zosyn+vanco. -Short course of antibiotics given due to drug rash -Repeat blood cultures are negative #Rash-improved - Erythematous, macular rash on lower abdomen and part of chest noted 01/07 - May be related to transfusion, or drug reaction. - Got decadon, benadryl, pepcid without significant improvement but has not improved - Stopped zosyn and vanco, this may have been a delayed drug reaction. #WILLIAM: Patient was having poor urine output but renal function has improved and urine output has increased -Status post Bumex drip and now transitioned to scheduled Bumex -Nephrology following -No CRISTINO or ARB at this time #Acute on chronic encephalopathy -Patient with baseline dementia but mentation has worsened likely secondary to delirium #Abdominal pain likely secondary to mild ileus -KUB does show few mildly distended air filled loops of small bowel -Abdominal ultrasound shows a large echogenic lesion in the upper abdomen may represent fluid distended stomach versus mass, Recommend CT scan for further evaluation -Follow-up on CT abdomen -Replete potassium as hypokalemia may be contributing to ileus Prophylaxis: SCDs DC planning: Plan is to DC to [facility] or if improves or to care home facility, is currently reluctant for patient to be discharged Result Diagram: 01/15/19 0622 01/15/19 0622 Results 24hrs Laboratory Tests Test 01/14/19 21:41 01/15/19 06:22 01/15/19 07:49 01/15/19 12:17 Bedside Glucose 145 153 135 White Blood Count 18.8 #H Red Blood Count 3.33 L Hemoglobin 10.1 L Hematocrit 32.1 L Mean Corpuscular 96.4 Volume Mean Corpuscular 30.3 Hemoglobin Mean Corpuscular 31.5 L Hemoglobin Concent Red Cell 19.8 H Distribution Width Platelet Count 223 Mean Platelet Volume 10.0 Immature 1.800 H Granulocytes % Neutrophils % 86.6 H Lymphocytes % 6.4 L Monocytes % 3.3 Eosinophils % 1.6 Basophils % 0.3 Nucleated Red Blood 0.0 Cells % Immature 0.340 H Granulocytes # Neutrophils # 16.3 H Lymphocytes # 1.2 Monocytes # 0.6 Eosinophils # 0.3 Basophils # 0.1 Nucleated Red Blood 0.0 Cells # Sodium Level 143 Potassium Level 3.2 L Chloride Level 107 Carbon Dioxide Level 32 H Anion Gap 4 L Blood Urea Nitrogen 66 H Creatinine 1.74 H Est Glomerular Filtrat Rate mL/min Glucose Level 103 Calcium Level 8.1 L Test 01/15/19 17:26 Bedside Glucose 135 Subjective 24 Hr Interval Summary Constitutional: disoriented Gastrointestinal: pain Exam/Review of Systems Exam Vitals Vital Signs Date Temp Pulse Resp B/P (MAP) Pulse Ox O2 O2 Flow FiO2 Time Delivery Rate 01/15/19 3.0 17:41 01/15/19 86 16:10 01/15/19 98.1 17 126/56 95 15:06 (79) 01/15/19 Nasal 07:52 Cannula 01/12/19 50 01:07 Intake and Output 01/14/19 01/14/19 01/15/19 1515:00 23:00 07:00 IntakeIntake Total 300 ml 200 ml OutputOutput Total 400 ml 800 ml BalanceBalance -100 ml -600 ml Constitutional: alert Psych: confusion Respiratory: clear to auscultation Cardiovascular: regular rate and rhythm Gastrointestinal: soft, non-tender Musculoskeletal: nl extremities to inspection Results Results 24hrs Laboratory Tests Test 01/14/19 21:41 01/15/19 06:22 01/15/19 07:49 01/15/19 12:17 Bedside Glucose 145 153 135 White Blood Count 18.8 #H Red Blood Count 3.33 L Hemoglobin 10.1 L Hematocrit 32.1 L Mean Corpuscular 96.4 Volume Mean Corpuscular 30.3 Hemoglobin Mean Corpuscular 31.5 L Hemoglobin Concent Red Cell 19.8 H Distribution Width Platelet Count 223 Mean Platelet Volume 10.0 Immature 1.800 H Granulocytes % Neutrophils % 86.6 H Lymphocytes % 6.4 L Monocytes % 3.3 Eosinophils % 1.6 Basophils % 0.3 Nucleated Red Blood 0.0 Cells % Immature 0.340 H Granulocytes # Neutrophils # 16.3 H Lymphocytes # 1.2 Monocytes # 0.6 Eosinophils # 0.3 Basophils # 0.1 Nucleated Red Blood 0.0 Cells # Sodium Level 143 Potassium Level 3.2 L Chloride Level 107 Carbon Dioxide Level 32 H Anion Gap 4 L Blood Urea Nitrogen 66 H Creatinine 1.74 H Est Glomerular Filtrat Rate mL/min Glucose Level 103 Calcium Level 8.1 L Test 01/15/19 17:26 Bedside Glucose 135 Medications Medication Current Medications IV Flush (NS 3 ml) 3 ml PER PROTOCOL IV ; Start 12/28/18 at 04:30 Ondansetron HCl (Zofran Inj) 4 mg Q6H PRN IV NAUSEA/VOMITING Last administered on 01/13/19at 11:02; Admin Dose 4 MG; Start 12/28/18 at 04:30 Aspirin (Aspirin) 81 mg DAILY PO Last administered on 01/15/19at 08:32; Admin Dose 81 MG; Start 12/28/18 at 09:00 Nitroglycerin (Nitroglycerin (Sl Tab) 0.4 Mg) 1 tab Q5M PRN SL .CHEST PAIN Last administered on 01/10/19at 08:03; Admin Dose 1 TAB; Start 12/28/18 at 04:30 Diagnostic Test (Pha) (Accu-Chek) 1 ea 02 XX Last administered on 01/13/19at 02:00; Admin Dose 1 EA; Start 12/29/18 at 02:00 Miscellaneous Information 1 ea NOTE XX ; Start 12/28/18 at 05:00 Glucose (Glutose) 15 gm Q15M PRN PO DECREASED GLUCOSE; Start 12/28/18 at 05:00 Glucose (Glutose) 22.5 gm Q15M PRN PO DECREASED GLUCOSE; Start 12/28/18 at 05:00 Dextrose (D50w Syringe) 25 ml Q15M PRN IV DECREASED GLUCOSE; Start 12/28/18 at 05:00 Dextrose (D50w Syringe) 50 ml Q15M PRN IV DECREASED GLUCOSE; Start 12/28/18 at 05:00 Glucagon (Glucagen) 1 mg Q15M PRN IM DECREASED GLUCOSE; Start 12/28/18 at 05:00 Glucose (Glutose) 15 gm Q15M PRN BUCCAL DECREASED GLUCOSE; Start 12/28/18 at 05:00 Atorvastatin Calcium (Lipitor) 80 mg HS PO Last administered on 01/14/19 21:43; Admin Dose 80 MG; Start 12/29/18 at 21:00 Phenol (Cepastat Lozenge) 1 lozenge Q1H PRN MT COUGH Last administered on 01/03/19at 13:05; Admin Dose 1 LOZENGE; Start 12/28/18 at 17:30 Escitalopram Oxalate (Lexapro) 10 mg DAILY PO Last administered on 01/15/19 08:32; Admin Dose 10 MG; Start 12/29/18 at 09:30 Risedronate (Actonel) 35 mg Tu@AC BREAKFAST PO ; Start 12/30/18 at 07:00 Mirtazapine (Remeron) 15 mg HS PO Last administered on 01/14/19 21:43; Admin Dose 15 MG; Start 12/29/18 at 21:00 Pantoprazole (Protonix Tab) 40 mg DAILY@06 PO Last administered on 01/15/19 06:27; Admin Dose 40 MG; Start 12/30/18 at 06:00 Docusate Sodium (Colace) 100 mg BID PO Last administered on 01/15/19 08:32; Admin Dose 100 MG; Start 12/29/18 at 18:30 Clopidogrel Bisulfate (plaVIX) 75 mg DAILY PO Last administered on 01/15/19 08:32; Admin Dose 75 MG; Start 01/03/19 at 09:00 Morphine Sulfate (morphine) 1 mg Q1H PRN IV SEVERE PAIN LEVEL 7-10 Last administered on 01/14/19at 16:12; Admin Dose 1 MG; Start 01/04/19 at 16:00 Polyethylene Glycol (Miralax) 17 gm BID PRN PO CONSTIPATION Last administered on 01/15/19 08:32; Admin Dose 17 GM; Start 01/06/19 at 13:00 IV Flush (NS 10 ml) 10 ml PRN PRN IV flush; Start 01/06/19 at 18:30 Bisacodyl (Dulcolax Supp) 10 mg DAILY PRN IN CONSTIPATION; Start 01/06/19 at 19:00 Albuterol/ Ipratropium (Duoneb) 3 ml Q4H RESP THERAPY PRN HHN SHORTNESS OF BREATH Last administered on 01/11/19 15:42; Admin Dose 3 ML; Start 01/07/19 at 20:00 Carvedilol (Coreg) 12.5 mg BID PO Last administered on 01/15/19 08:32; Admin Dose 12.5 MG; Start 01/11/19 at 21:00 IV Flush (NS 10 ml) 10 ml PRN PRN IV IV PROTOCOL; Start 01/12/19 at 18:00 Bumetanide (Bumex) 1 mg BID DIURETICS IV Last administered on 01/15/19 17:43; Admin Dose 1 MG; Start 01/13/19 at 18:00 Insulin Aspart (Novolog Insulin Pen) (Adult SC Insulin - Mild Algorithm)... AC MEALS AND BEDTIME SC Last administered on 01/15/19 08:10; Admin Dose 1 UNIT; Start 01/14/19 at 21:00 DELORIS EVANGELISTA January 15, 2019 19:14
[2019-01-15] MEDS: MIRTAZAPINE 15 MG TAB PO SCH (20:46)
[2019-01-15] MEDS: ATORVASTATIN 80 MG TAB PO SCH (20:47)
[2019-01-16] VITALS (10 sets, daily range): BP systolic 111–128; BP diastolic 53–64; PULSE 69–92; RESP 16–22
[2019-01-16] MEDS: ACCU-CHEK XX SCH (02:00)
[2019-01-16] MEDS: PANTOPRAZOLE (EC) 40 MG TAB PO SCH (05:36)
[2019-01-16] MEDS ORDERED: BUMETANIDE 1 MG INJ IV SCH (06:00)
[2019-01-16] MEDS: Insulin NOVOLOG SS MILD Algorithm (SS with meals and bedtime) SC SCH ×4 (07:25→20:32)
--- NOTE | 2019-01-16 07:47 | CONS ---
Assessment/Plan Assessment/Plan Hospital Course (Demo Recall) 83 yo with STEMI/new LBBB, with severe 2V CAD, culprit lesion is LAD with SHERIN 2 flow on cath, with ischemic cardiomyopathy, lvef 40-45% and severe aortic regurgitation. Course complicated by acute heart failure, acute renal failure, and recurrent chest/epigastric pain. Underwent urgent PCI to mid LAD and staged PCI to RCA. Now with abdominal mass noted on CT, short run of ?afib yesterday, and debility. Impression: Acute LA with new LBBB Acute systolic heart failure, with elevated lvedp on cath, improved Acute on chronic renal insufficiency, resolved Severe aortic regurgitation which is chronic per Dr. 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 Workup of abdominal mass as per primary team PT/OT Nutrition support, Boost TID Discharge planning Consultation Date/Type/Reason Admit Date/Time December 28, 2018 at 03:23 Initial Consult Date 12/28/18 Type of Consult Cardiology Requesting Provider: KRYSTAL BERNARD Date/Time of Note DATE: 01/16/19 TIME: 07:44 24 HR Interval Summary Free Text/Dictation Patient resting comfortably, at bedside. He states she feels better after moving her bowels yesterday. Tele reviewed, around 9:12 am yesterday she had about 18 seconds of irregular fast rhythm, with a couple of clear sinus beats in between. This did not recur. U/S abd results noted. Exam/Review of Systems Vital Signs Vitals Vital Signs Date Temp Pulse Resp B/P (MAP) Pulse Ox O2 O2 Flow FiO2 Time Delivery Rate 01/16/19 97.8 78 18 111/55 99 Nasal 07:37 (73) Cannula 01/16/19 3.0 01:28 Intake and Output 01/15/19 01/15/19 01/16/19 1515:00 23:00 07:00 IntakeIntake Total 100 ml 400 ml OutputOutput Total 700 ml BalanceBalance 100 ml -300 ml Exam Constitutional: well developed Head: normocephalic, atraumatic Eyes: nl lids ENMT: nl external ears & nose Neck: No jvd, No bruits Respiratory: clear to auscultation Cardiovascular: regular rate and rhythm, murmurs/extra sounds Gastrointestinal: soft, non-tender, distended Musculoskeletal: nl extremities to inspection Extremities: edema (mild diffuse) Skin: nl turgor, rash or lesions Labs Result Diagram: 01/16/1917 01/16/1917 Results 24hrs Laboratory Tests Test 01/15/19 07:49 01/15/19 12:17 01/15/19 17:26 01/15/19 20:51 Bedside Glucose 153 135 135 144 Test 01/16/19 06:17 White Blood Count 18.1 H Red Blood Count 3.34 L Hemoglobin 9.9 L Hematocrit 32.4 L Mean Corpuscular 97.0 Volume Mean Corpuscular 29.6 Hemoglobin Mean Corpuscular 30.6 L Hemoglobin Concent Red Cell 19.9 H Distribution Width Platelet Count 210 Mean Platelet Volume 10.0 Immature 1.100 H Granulocytes % Neutrophils % 85.5 H Lymphocytes % 7.9 L Monocytes % 3.7 Eosinophils % 1.5 Basophils % 0.3 Nucleated Red Blood 0.0 Cells % Immature 0.190 H Granulocytes # Neutrophils # 15.5 H Lymphocytes # 1.4 Monocytes # 0.7 Eosinophils # 0.3 Basophils # 0.1 Nucleated Red Blood 0.0 Cells # Sodium Level 142 Potassium Level 3.3 L Chloride Level 105 Carbon Dioxide Level 33 H Anion Gap 4 L Blood Urea Nitrogen 55 H Creatinine 1.23 H Est Glomerular Filtrat Rate mL/min Glucose Level 102 Calcium Level 8.2 L Phosphorus Level 3.0 Magnesium Level 2.0 Medications Medications Current Medications IV Flush (NS 3 ml) 3 ml PER PROTOCOL IV ; Start 12/28/18 at 04:30 Ondansetron HCl (Zofran Inj) 4 mg Q6H PRN IV NAUSEA/VOMITING Last administered on 01/13/19at 11:02; Admin Dose 4 MG; Start 12/28/18 at 04:30 Aspirin (Aspirin) 81 mg DAILY PO Last administered on 01/15/19at 08:32; Admin Dose 81 MG; Start 12/28/18 at 09:00 Nitroglycerin (Nitroglycerin (Sl Tab) 0.4 Mg) 1 tab Q5M PRN SL .CHEST PAIN Last administered on 01/10/19at 08:03; Admin Dose 1 TAB; Start 12/28/18 at 04:30 Diagnostic Test (Pha) (Accu-Chek) 1 ea 02 XX Last administered on 01/13/19at 02:00; Admin Dose 1 EA; Start 12/29/18 at 02:00 Miscellaneous Information 1 ea NOTE XX ; Start 12/28/18 at 05:00 Glucose (Glutose) 15 gm Q15M PRN PO DECREASED GLUCOSE; Start 12/28/18 at 05:00 Glucose (Glutose) 22.5 gm Q15M PRN PO DECREASED GLUCOSE; Start 12/28/18 at 05:00 Dextrose (D50w Syringe) 25 ml Q15M PRN IV DECREASED GLUCOSE; Start 12/28/18 at 05:00 Dextrose (D50w Syringe) 50 ml Q15M PRN IV DECREASED GLUCOSE; Start 12/28/18 at 05:00 Glucagon (Glucagen) 1 mg Q15M PRN IM DECREASED GLUCOSE; Start 12/28/18 at 05:00 Glucose (Glutose) 15 gm Q15M PRN BUCCAL DECREASED GLUCOSE; Start 12/28/18 at 05:00 Atorvastatin Calcium (Lipitor) 80 mg HS PO Last administered on 01/15/19at 20:47; Admin Dose 80 MG; Start 12/29/18 at 21:00 Phenol (Cepastat Lozenge) 1 lozenge Q1H PRN MT COUGH Last administered on 01/03/19at 13:05; Admin Dose 1 LOZENGE; Start 12/28/18 at 17:30 Escitalopram Oxalate (Lexapro) 10 mg DAILY PO Last administered on 01/15/19at 08:32; Admin Dose 10 MG; Start 12/29/18 at 09:30 Risedronate (Actonel) 35 mg Tu@AC BREAKFAST PO ; Start 12/30/18 at 07:00 Mirtazapine (Remeron) 15 mg HS PO Last administered on 01/15/19at 20:46; Admin Dose 15 MG; Start 12/29/18 at 21:00 Pantoprazole (Protonix Tab) 40 mg DAILY@06 PO Last administered on 01/16/19at 05:36; Admin Dose 40 MG; Start 12/30/18 at 06:00 Docusate Sodium (Colace) 100 mg BID PO Last administered on 01/15/19at 20:48; Admin Dose 100 MG; Start 12/29/18 at 18:30 Clopidogrel Bisulfate (plaVIX) 75 mg DAILY PO Last administered on 01/15/19 08:32; Admin Dose 75 MG; Start 01/03/19 at 09:00 Morphine Sulfate (morphine) 1 mg Q1H PRN IV SEVERE PAIN LEVEL 7-10 Last administered on 01/14/19 16:12; Admin Dose 1 MG; Start 01/04/19 at 16:00 Polyethylene Glycol (Miralax) 17 gm BID PRN PO CONSTIPATION Last administered on 01/15/19 08:32; Admin Dose 17 GM; Start 01/06/19 at 13:00 IV Flush (NS 10 ml) 10 ml PRN PRN IV flush; Start 01/06/19 at 18:30 Bisacodyl (Dulcolax Supp) 10 mg DAILY PRN ID CONSTIPATION; Start 01/06/19 at 19:00 Albuterol/ Ipratropium (Duoneb) 3 ml Q4H RESP THERAPY PRN HHN SHORTNESS OF BREATH Last administered on 01/11/19at 15:42; Admin Dose 3 ML; Start 01/07/19 at 20:00 IV Flush (NS 10 ml) 10 ml PRN PRN IV IV PROTOCOL; Start 01/12/19 at 18:00 Insulin Aspart (Novolog Insulin Pen) (Adult SC Insulin - Mild Algorithm)... AC MEALS AND BEDTIME SC Last administered on 01/15/19at 08:10; Admin Dose 1 UNIT; Start 01/14/19 at 21:00 Bumetanide (Bumex) 1 mg DAILY@0600 IV Last administered on 01/16/19at 05:36; Admin Dose 1 MG; Start 01/16/19 at 06:00 Carvedilol (Coreg) 25 mg BID PO ; Start 01/16/19 at 09:00 RODRIGUEZ GARZA January 16, 2019 07:47
--- NOTE | 2019-01-16 08:18 | CONS ---
Assessment/Plan Assessment/Plan Assessment/Plan (Daily) 1. Acute kidney injury on CKD III 2/2 Hemodynamics from CHF + NSTEMI - worsening renal failure 2. Hypokalemia 3. Hypernatremia -improved to normal 4. acute NSTEMI s/p LHC showed multivessel obstructive CAD - s/p Successful PTCA and stenting of proximal left anterior descending artery using a 3 x 20 mm Synergy drug-eluting stent on 01/04/19- s/p LHC with proximal RCA stenting on 01/08/19 5. CAD multivessel obstructive 6. Anemia of Chronic disease s/p 2 U PRBC on 01/07/19 Plan: BUN/Cr improved to 55/1.23, K 3.3- will change bumex to 1 mg po daily KCl 20MEQ PO BID - No plan for HD for now Coreg increased to 25 mg pO BID< cardiology has been following will follow up Consultation Date/Type/Reason Admit Date/Time December 28, 2018 at 03:23 Initial Consult Date 12/28/18 Type of Consult NEPHROLOGY Requesting Provider: KRYSTAL BERNARD Date/Time of Note DATE: 01/16/19 TIME: 08:18 24 HR Interval Summary Free Text/Dictation BUN/Cr improving, no SOB< making good urine, C/o abdominal pain, CT abdomen showed No CT evidence of mass, lymphadenopathy, or acute inflammatory process. Previously seen echogenic structure on recent ultrasound may have represented distended stomach or bowel with ingested contents.Mild distension of the ascending and transverse colon with air-fluid levels. No evidence of bowel obstruction. Correlate for diarrhea. Exam/Review of Systems Exam Vitals Vital Signs Date Temp Pulse Resp B/P (MAP) Pulse Ox O2 O2 Flow FiO2 Time Delivery Rate 01/16/19 97.8 78 18 111/55 99 Nasal 07:37 (73) Cannula 01/16/19 3.0 01:28 Intake and Output 01/15/19 01/15/19 01/16/19 1515:00 23:00 07:00 IntakeIntake Total 100 ml 400 ml 200 ml OutputOutput Total 700 ml 820 ml BalanceBalance 100 ml -300 ml -620 ml Exam Constitutional: alert Eyes: nl conjunctiva Neck: supple, non-tender Respiratory: clear to auscultation, diminished breath sounds Cardiovascular: regular rate and rhythm, nl pulses Gastrointestinal: soft, non-tender Extremities: normal pulses 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 Results Result Diagram: 01/16/19 0617 01/16/19 0617 Results 24hrs Laboratory Tests Test 01/15/19 12:17 01/15/19 17:26 01/15/19 20:51 01/16/19 06:17 Bedside Glucose 135 135 144 White Blood Count 18.1 H Red Blood Count 3.34 L Hemoglobin 9.9 L Hematocrit 32.4 L Mean Corpuscular 97.0 Volume Mean Corpuscular 29.6 Hemoglobin Mean Corpuscular 30.6 L Hemoglobin Concent Red Cell 19.9 H Distribution Width Platelet Count 210 Mean Platelet Volume 10.0 Immature 1.100 H Granulocytes % Neutrophils % 85.5 H Lymphocytes % 7.9 L Monocytes % 3.7 Eosinophils % 1.5 Basophils % 0.3 Nucleated Red Blood 0.0 Cells % Immature 0.190 H Granulocytes # Neutrophils # 15.5 H Lymphocytes # 1.4 Monocytes # 0.7 Eosinophils # 0.3 Basophils # 0.1 Nucleated Red Blood 0.0 Cells # Sodium Level 142 Potassium Level 3.3 L Chloride Level 105 Carbon Dioxide Level 33 H Anion Gap 4 L Blood Urea Nitrogen 55 H Creatinine 1.23 H Est Glomerular Filtrat Rate mL/min Glucose Level 102 Calcium Level 8.2 L Phosphorus Level 3.0 Magnesium Level 2.0 Medications Medication Current Medications IV Flush (NS 3 ml) 3 ml PER PROTOCOL IV ; Start 12/28/18 at 04:30 Ondansetron HCl (Zofran Inj) 4 mg Q6H PRN IV NAUSEA/VOMITING Last administered on 01/13/19at 11:02; Admin Dose 4 MG; Start 12/28/18 at 04:30 Aspirin (Aspirin) 81 mg DAILY PO Last administered on 01/15/19at 08:32; Admin Dose 81 MG; Start 12/28/18 at 09:00 Nitroglycerin (Nitroglycerin (Sl Tab) 0.4 Mg) 1 tab Q5M PRN SL .CHEST PAIN Last administered on 01/10/19at 08:03; Admin Dose 1 TAB; Start 12/28/18 at 04:30 Diagnostic Test (Pha) (Accu-Chek) 1 ea 02 XX Last administered on 01/13/19at 02:00; Admin Dose 1 EA; Start 12/29/18 at 02:00 Miscellaneous Information 1 ea NOTE XX ; Start 12/28/18 at 05:00 Glucose (Glutose) 15 gm Q15M PRN PO DECREASED GLUCOSE; Start 12/28/18 at 05:00 Glucose (Glutose) 22.5 gm Q15M PRN PO DECREASED GLUCOSE; Start 12/28/18 at 05:00 Dextrose (D50w Syringe) 25 ml Q15M PRN IV DECREASED GLUCOSE; Start 12/28/18 at 05:00 Dextrose (D50w Syringe) 50 ml Q15M PRN IV DECREASED GLUCOSE; Start 12/28/18 at 05:00 Glucagon (Glucagen) 1 mg Q15M PRN IM DECREASED GLUCOSE; Start 12/28/18 at 05:00 Glucose (Glutose) 15 gm Q15M PRN BUCCAL DECREASED GLUCOSE; Start 12/28/18 at 05:00 Atorvastatin Calcium (Lipitor) 80 mg HS PO Last administered on 01/15/19at 20:47; Admin Dose 80 MG; Start 12/29/18 at 21:00 Phenol (Cepastat Lozenge) 1 lozenge Q1H PRN MT COUGH Last administered on 01/03/19at 13:05; Admin Dose 1 LOZENGE; Start 12/28/18 at 17:30 Escitalopram Oxalate (Lexapro) 10 mg DAILY PO Last administered on 01/15/19at 08:32; Admin Dose 10 MG; Start 12/29/18 at 09:30 Risedronate (Actonel) 35 mg Tu@AC BREAKFAST PO ; Start 12/30/18 at 07:00 Mirtazapine (Remeron) 15 mg HS PO Last administered on 01/15/19at 20:46; Admin Dose 15 MG; Start 12/29/18 at 21:00 Pantoprazole (Protonix Tab) 40 mg DAILY@06 PO Last administered on 01/16/19 05:36; Admin Dose 40 MG; Start 12/30/18 at 06:00 Docusate Sodium (Colace) 100 mg BID PO Last administered on 01/15/19at 20:48; Admin Dose 100 MG; Start 12/29/18 at 18:30 Clopidogrel Bisulfate (plaVIX) 75 mg DAILY PO Last administered on 01/15/19at 08:32; Admin Dose 75 MG; Start 01/03/19 at 09:00 Morphine Sulfate (morphine) 1 mg Q1H PRN IV SEVERE PAIN LEVEL 7-10 Last administered on 01/14/19at 16:12; Admin Dose 1 MG; Start 01/04/19 at 16:00 Polyethylene Glycol (Miralax) 17 gm BID PRN PO CONSTIPATION Last administered on 01/15/19at 08:32; Admin Dose 17 GM; Start 01/06/19 at 13:00 IV Flush (NS 10 ml) 10 ml PRN PRN IV flush; Start 01/06/19 at 18:30 Bisacodyl (Dulcolax Supp) 10 mg DAILY PRN ND CONSTIPATION; Start 01/06/19 at 19:00 Albuterol/ Ipratropium (Duoneb) 3 ml Q4H RESP THERAPY PRN HHN SHORTNESS OF BREATH Last administered on 01/11/19at 15:42; Admin Dose 3 ML; Start 01/07/19 at 20:00 IV Flush (NS 10 ml) 10 ml PRN PRN IV IV PROTOCOL; Start 01/12/19 at 18:00 Insulin Aspart (Novolog Insulin Pen) (Adult SC Insulin - Mild Algorithm)... AC MEALS AND BEDTIME SC Last administered on 01/15/19at 08:10; Admin Dose 1 UNIT; Start 01/14/19 at 21:00 Bumetanide (Bumex) 1 mg DAILY@0600 IV Last administered on 01/16/19at 05:36; Admin Dose 1 MG; Start 01/16/19 at 06:00 Carvedilol (Coreg) 25 mg BID PO ; Start 01/16/19 at 09:00 PATTI CALLEJAS MD January 16, 2019 08:18
[2019-01-16] MEDS: CLOPIDOGREL 75 MG TAB PO SCH (08:40)
[2019-01-16] MEDS: ASPIRIN 81 MG TAB PO SCH (08:41)
[2019-01-16] MEDS: BUMETANIDE 1 MG TAB PO SCH (08:41)
[2019-01-16] MEDS: DOCUSATE SODIUM 100 MG CAP PO SCH ×2 (08:41→20:32)
[2019-01-16] MEDS: ESCITALOPRAM 10 MG TAB PO SCH (08:41)
[2019-01-16] MEDS: POTASSIUM CHLORIDE (SR) 20 MEQ TAB PO SCH ×2 (08:42→20:31)
[2019-01-16] MEDS: POTASSIUM CHLORIDE 100 ML IVPB SCH ×2 (11:35→14:13)
--- NOTE | 2019-01-16 12:18 | CONS ---
Consult Date/Type/Reason Admit Date/Time December 28, 2018 at 03:23 Initial Consult Date 01/03/19 Type of Consult Pulmonary Requesting Provider: KRYSTAL BERNARD Date/Time of Note DATE: 01/16/19 TIME: 12:15 Subjective Family remain reluctant to transfer patient to [facility]. Patient's condition remains largely unchanged. Significant global weakness on nasal cannula O2. No respiratory distress at present. Objective Vital Signs Date Temp Pulse Resp B/P (MAP) Pulse Ox O2 O2 Flow FiO2 Time Delivery Rate 01/16/19 69 12:10 01/16/19 4.0 11:42 01/16/19 98.5 18 128/53 96 Nasal 11:28 (78) Cannula Intake and Output 01/15/19 01/15/19 01/16/19 1515:00 23:00 07:00 IntakeIntake Total 100 ml 400 ml 200 ml OutputOutput Total 700 ml 820 ml BalanceBalance 100 ml -300 ml -620 ml Exam GENERAL: Frail elderly lady on nasal cannula O2 VITAL SIGNS: per chart NECK: Supple. No JVD or lymphadenopathy. CARDIAC EXAM: S1, S2. No added sounds or murmurs. CHEST: Diminished air entry bilaterally with few rales ABDOMEN: Soft, nontender. No guarding or rebound. EXTREMITIES: No cyanosis, clubbing or edema. NEUROLOGIC: Generalized weakness. No focal deficits. Vent Setting Fraction of Inspired Oxygen pe: 30 Results/Medications Result Diagram: 01/16/19 0617 01/16/19 0617 Results 24 hrs Laboratory Tests Test 01/15/19 12:17 01/15/19 17:26 01/15/19 20:51 01/16/19 06:17 Bedside Glucose 135 135 144 White Blood Count 18.1 H Red Blood Count 3.34 L Hemoglobin 9.9 L Hematocrit 32.4 L Mean Corpuscular 97.0 Volume Mean Corpuscular 29.6 Hemoglobin Mean Corpuscular 30.6 L Hemoglobin Concent Red Cell 19.9 H Distribution Width Platelet Count 210 Mean Platelet Volume 10.0 Immature 1.100 H Granulocytes % Neutrophils % 85.5 H Lymphocytes % 7.9 L Monocytes % 3.7 Eosinophils % 1.5 Basophils % 0.3 Nucleated Red Blood 0.0 Cells % Immature 0.190 H Granulocytes # Neutrophils # 15.5 H Lymphocytes # 1.4 Monocytes # 0.7 Eosinophils # 0.3 Basophils # 0.1 Nucleated Red Blood 0.0 Cells # Sodium Level 142 Potassium Level 3.3 L Chloride Level 105 Carbon Dioxide Level 33 H Anion Gap 4 L Blood Urea Nitrogen 55 H Creatinine 1.23 H Est Glomerular Filtrat Rate mL/min Glucose Level 102 Calcium Level 8.2 L Phosphorus Level 3.0 Magnesium Level 2.0 Test 01/16/19 08:10 01/16/19 11:48 Bedside Glucose 95 133 Medications Current Medications IV Flush (NS 3 ml) 3 ml PER PROTOCOL IV ; Start 12/28/18 at 04:30 Ondansetron HCl (Zofran Inj) 4 mg Q6H PRN IV NAUSEA/VOMITING Last administered on 01/13/19at 11:02; Admin Dose 4 MG; Start 12/28/18 at 04:30 Aspirin (Aspirin) 81 mg DAILY PO Last administered on 01/16/19at 08:41; Admin Dose 81 MG; Start 12/28/18 at 09:00 Nitroglycerin (Nitroglycerin (Sl Tab) 0.4 Mg) 1 tab Q5M PRN SL .CHEST PAIN Last administered on 01/10/19at 08:03; Admin Dose 1 TAB; Start 12/28/18 at 04:30 Diagnostic Test (Pha) (Accu-Chek) 1 ea 02 XX Last administered on 01/13/19at 02:00; Admin Dose 1 EA; Start 12/29/18 at 02:00 Miscellaneous Information 1 ea NOTE XX ; Start 12/28/18 at 05:00 Glucose (Glutose) 15 gm Q15M PRN PO DECREASED GLUCOSE; Start 12/28/18 at 05:00 Glucose (Glutose) 22.5 gm Q15M PRN PO DECREASED GLUCOSE; Start 12/28/18 at 05:00 Dextrose (D50w Syringe) 25 ml Q15M PRN IV DECREASED GLUCOSE; Start 12/28/18 at 05:00 Dextrose (D50w Syringe) 50 ml Q15M PRN IV DECREASED GLUCOSE; Start 12/28/18 at 05:00 Glucagon (Glucagen) 1 mg Q15M PRN IM DECREASED GLUCOSE; Start 12/28/18 at 05:00 Glucose (Glutose) 15 gm Q15M PRN BUCCAL DECREASED GLUCOSE; Start 12/28/18 at 05:00 Atorvastatin Calcium (Lipitor) 80 mg HS PO Last administered on 01/15/19 20:47; Admin Dose 80 MG; Start 12/29/18 at 21:00 Phenol (Cepastat Lozenge) 1 lozenge Q1H PRN MT COUGH Last administered on 01/03/19 13:05; Admin Dose 1 LOZENGE; Start 12/28/18 at 17:30 Escitalopram Oxalate (Lexapro) 10 mg DAILY PO Last administered on 01/16/19 08:41; Admin Dose 10 MG; Start 12/29/18 at 09:30 Risedronate (Actonel) 35 mg Tu@AC BREAKFAST PO ; Start 12/30/18 at 07:00 Mirtazapine (Remeron) 15 mg HS PO Last administered on 01/15/19 20:46; Admin Dose 15 MG; Start 12/29/18 at 21:00 Pantoprazole (Protonix Tab) 40 mg DAILY@06 PO Last administered on 01/16/19 05:36; Admin Dose 40 MG; Start 12/30/18 at 06:00 Docusate Sodium (Colace) 100 mg BID PO Last administered on 01/16/19 08:41; Admin Dose 100 MG; Start 12/29/18 at 18:30 Clopidogrel Bisulfate (plaVIX) 75 mg DAILY PO Last administered on 01/16/19 08:40; Admin Dose 75 MG; Start 01/03/19 at 09:00 Morphine Sulfate (morphine) 1 mg Q1H PRN IV SEVERE PAIN LEVEL 7-10 Last administered on 01/14/19 16:12; Admin Dose 1 MG; Start 01/04/19 at 16:00 Polyethylene Glycol (Miralax) 17 gm BID PRN PO CONSTIPATION Last administered on 01/15/19 08:32; Admin Dose 17 GM; Start 01/06/19 at 13:00 IV Flush (NS 10 ml) 10 ml PRN PRN IV flush; Start 01/06/19 at 18:30 Bisacodyl (Dulcolax Supp) 10 mg DAILY PRN [place] CONSTIPATION; Start 01/06/19 at 19:00 Albuterol/ Ipratropium (Duoneb) 3 ml Q4H RESP THERAPY PRN HHN SHORTNESS OF ANNAMARIE TH Last administered on 5/19/19at 15:42; Admin Dose 3 ML; Start 01/07/19 at 20:00 IV Flush (NS 10 ml) 10 ml PRN PRN IV IV PROTOCOL; Start 01/12/19 at 18:00 Insulin Aspart (Novolog Insulin Pen) (Adult SC Insulin - Mild Algorithm)... AC MEALS AND BEDTIME SC Last administered on 01/15/19at 08:10; Admin Dose 1 UNIT; Start 01/14/19 at 21:00 Carvedilol (Coreg) 25 mg BID PO Last administered on 01/16/19at 08:40; Admin Dose 25 MG; Start 01/16/19 at 09:00 Bumetanide (Bumex) 1 mg DAILY PO Last administered on 01/16/19at 08:41; Admin Dose 1 MG; Start 01/16/19 at 09:00 Potassium Chloride (Klor-Con 20) 20 meq BID PO Last administered on 01/16/19at 08:42; Admin Dose 20 MEQ; Start 01/16/19 at 09:00 Potassium Chloride 100 ml @ 50 mls/hr Q2H IVPB Last administered on 01/16/19at 11:35; Admin Dose 50 MLS/HR; Start 01/16/19 at 11:00; Stop 01/16/19 at 14:59 Assessment/Plan Hospital Course (Demo Recall) IMP: 1. s/p Acute SC--status post stent placements. 2. CHF ongoing pulmonary edema 3. Hypercapnic Resp Insufficiency 4. Acute on chronic kidney injury appears to be resolving. Likely contrast nephropathy. 5. Possible aspiration pneumonia. Dense right upper lobe infiltrate concerning for cryptogenic organizing pneumonia or atypical pneumonia differential does al so include malignancy. However given patient's tenuous cardiac and respiratory status bronchoscopy is currently not advisable. Plan 1. Continue renal recommendations 2. Continue antibiotics 3. Aspiration precautions 4. Physical therapy as tolerated 5. Transition to [facility] facility or [facility] Cadet MD, [facility] January 16, 2019 12:18
[2019-01-16] MEDS: morphine 2 MG INJ IV PRN (15:33)
[2019-01-16] MEDS: POLYETHYLENE GLYCOL 17 GM PACKET PO PRN (15:37)
--- NOTE | 2019-01-16 16:58 | PN ---
Date/Time of Note Date/Time of Note DATE: 01/16/19 TIME: 16:55 Assessment/Plan VTE Pro[place]axis [place] [facility] [place]: 7 [place]CD applied [place] [facility] [place] Yes Pharmacological prophylaxis: NA/contraindicated Pharm contraindication: renal impairment Assessment/Plan Hospital Course 83 yo Monegasque-speaking woman with history of dementia, hypertension, dyslipidemia, severe MR and aortic stenosis, arrhythmia who presents with ACS and multi-vessel coronary artery disease. #Acute UT - STEMI with LBBB - patient had cardiac cath on 12/28, found with: Severe 2 vessel CAD, LAD and RCA, LAD is culprit with francine 2 flow, and cardiomyopathy with LVEF 35%. Again patient also with severe aortic regurgitation and at least moderate mitral regurgitation. - Continue, Lipitor, beta-geovanny, statin, Plavix and Imdur - Now s/p PCI to LAD (01/04) and RCA (01/08) - She does also have severe AI, may need TAVR in the future. #Acute CHF exacerbation - likely due to acute ischemic CAD/STEMI - currently on Bumex -Status post nitro gtt #Bacteremia: 2 out of 2 bottles positive for coagulase-negative staph - Finished 7 days of zosyn+vanco. -Short course of antibiotics given due to drug rash -Repeat blood cultures are negative #Rash-improved - Erythematous, macular rash on lower abdomen and part of chest noted 01/07 - May be related to transfusion, or drug reaction. - Got decadon, benadryl, pepcid without significant improvement but has not improved - Stopped zosyn and vanco, this may have been a delayed drug reaction. #WILLIAM: Patient was having poor urine output but renal function has improved and urine output has increased -Status post Bumex drip and now transitioned to scheduled Bumex -Nephrology following -No CRISTINO or ARB at this time #Acute on chronic encephalopathy -Patient with baseline dementia but mentation has worsened likely secondary to delirium #Abdominal pain secondary to mild ileus and abdominal distention -KUB does show few mildly distended air filled loops of small bowel -Abdominal ultrasound shows a large echogenic lesion in the upper abdomen may represent fluid distended stomach versus mass, Recommend CT scan for further evaluation -CT abdomen showed only a distended abdomen, no masses noted, no SBO -Replete potassium as hypokalemia may be contributing to ileus -NG tube placed due to severely distended stomach Prophylaxis: SCDs DC planning: Patient has been refusing discharge to [place], patient has been accepted at rehab facility, anticipate DC over the weekend once patient is more stable Result Diagram: 01/16/19 0617 01/16/19 0617 Results 24hrs Laboratory Tests Test 01/15/19 17:26 01/15/19 20:51 01/16/19 06:17 01/16/19 08:10 Bedside Glucose 135 144 95 White Blood Count 18.1 H Red Blood Count 3.34 L Hemoglobin 9.9 L Hematocrit 32.4 L Mean Corpuscular 97.0 Volume Mean Corpuscular 29.6 Hemoglobin Mean Corpuscular 30.6 L Hemoglobin Concent Red Cell 19.9 H Distribution Width Platelet Count 210 Mean Platelet Volume 10.0 Immature 1.100 H Granulocytes % Neutrophils % 85.5 H Lymphocytes % 7.9 L Monocytes % 3.7 Eosinophils % 1.5 Basophils % 0.3 Nucleated Red Blood 0.0 Cells % Immature 0.190 H Granulocytes # Neutrophils # 15.5 H Lymphocytes # 1.4 Monocytes # 0.7 Eosinophils # 0.3 Basophils # 0.1 Nucleated Red Blood 0.0 Cells # Sodium Level 142 Potassium Level 3.3 L Chloride Level 105 Carbon Dioxide Level 33 H Anion Gap 4 L Blood Urea Nitrogen 55 H Creatinine 1.23 H Est Glomerular Filtrat Rate mL/min Glucose Level 102 Calcium Level 8.2 L Phosphorus Level 3.0 Magnesium Level 2.0 Test 01/16/19 11:48 Bedside Glucose 133 Subjective 24 Hr Interval Summary Constitutional: disoriented Exam/Review of Systems Exam Vitals Vital Signs Date Temp Pulse Resp B/P (MAP) Pulse Ox O2 O2 Flow FiO2 Time Delivery Rate 01/16/19 88 16:44 01/16/19 98.1 16 121/64 94 Nasal 15:14 (83) Cannula 01/16/19 4.0 11:42 Intake and Output 01/15/19 01/15/19 01/16/19 1515:00 23:00 07:00 IntakeIntake Total 100 ml 400 ml 200 ml OutputOutput Total 700 ml 820 ml BalanceBalance 100 ml -300 ml -620 ml Psych: confusion Respiratory: clear to auscultation Cardiovascular: regular rate and rhythm Gastrointestinal: soft, distended Musculoskeletal: nl extremities to inspection Results Results 24hrs Laboratory Tests Test 01/15/19 17:26 01/15/19 20:51 01/16/19 06:17 01/16/19 08:10 Bedside Glucose 135 144 95 White Blood Count 18.1 H Red Blood Count 3.34 L Hemoglobin 9.9 L Hematocrit 32.4 L Mean Corpuscular 97.0 Volume Mean Corpuscular 29.6 Hemoglobin Mean Corpuscular 30.6 L Hemoglobin Concent Red Cell 19.9 H Distribution Width Platelet Count 210 Mean Platelet Volume 10.0 Immature 1.100 H Granulocytes % Neutrophils % 85.5 H Lymphocytes % 7.9 L Monocytes % 3.7 Eosinophils % 1.5 Basophils % 0.3 Nucleated Red Blood 0.0 Cells % Immature 0.190 H Granulocytes # Neutrophils # 15.5 H Lymphocytes # 1.4 Monocytes # 0.7 Eosinophils # 0.3 Basophils # 0.1 Nucleated Red Blood 0.0 Cells # Sodium Level 142 Potassium Level 3.3 L Chloride Level 105 Carbon Dioxide Level 33 H Anion Gap 4 L Blood Urea Nitrogen 55 H Creatinine 1.23 H Est Glomerular Filtrat Rate mL/min Glucose Level 102 Calcium Level 8.2 L Phosphorus Level 3.0 Magnesium Level 2.0 Test 01/16/19 11:48 Bedside Glucose 133 Medications Medication Current Medications IV Flush (NS 3 ml) 3 ml PER PROTOCOL IV ; Start 12/28/18 at 04:30 Ondansetron HCl (Zofran Inj) 4 mg Q6H PRN IV NAUSEA/VOMITING Last administered on 01/13/19at 11:02; Admin Dose 4 MG; Start 12/28/18 at 04:30 Aspirin (Aspirin) 81 mg DAILY PO Last administered on 01/16/19at 08:41; Admin Dose 81 MG; Start 12/28/18 at 09:00 Nitroglycerin (Nitroglycerin (Sl Tab) 0.4 Mg) 1 tab Q5M PRN SL .CHEST PAIN Last administered on 01/10/19at 08:03; Admin Dose 1 TAB; Start 12/28/18 at 04:30 Diagnostic Test (Pha) (Accu-Chek) 1 ea 02 XX Last administered on 01/13/19at 02:00; Admin Dose 1 EA; Start 12/29/18 at 02:00 Miscellaneous Information 1 ea NOTE XX ; Start 12/28/18 at 05:00 Glucose (Glutose) 15 gm Q15M PRN PO DECREASED GLUCOSE; Start 12/28/18 at 05:00 Glucose (Glutose) 22.5 gm Q15M PRN PO DECREASED GLUCOSE; Start 12/28/18 at 05:00 Dextrose (D50w Syringe) 25 ml Q15M PRN IV DECREASED GLUCOSE; Start 12/28/18 at 05:00 Dextrose (D50w Syringe) 50 ml Q15M PRN IV DECREASED GLUCOSE; Start 12/28/18 at 05:00 Glucagon (Glucagen) 1 mg Q15M PRN IM DECREASED GLUCOSE; Start 12/28/18 at 05:00 Glucose (Glutose) 15 gm Q15M PRN BUCCAL DECREASED GLUCOSE; Start 12/28/18 at 05:00 Atorvastatin Calcium (Lipitor) 80 mg HS PO Last administered on 01/15/19at 20:47; Admin Dose 80 MG; Start 12/29/18 at 21:00 Phenol (Cepastat Lozenge) 1 lozenge Q1H PRN MT COUGH Last administered on 01/03/19at 13:05; Admin Dose 1 LOZENGE; Start 12/28/18 at 17:30 Escitalopram Oxalate (Lexapro) 10 mg DAILY PO Last administered on 01/16/19 08:41; Admin Dose 10 MG; Start 12/29/18 at 09:30 Risedronate (Actonel) 35 mg Tu@AC BREAKFAST PO ; Start 12/30/18 at 07:00 Mirtazapine (Remeron) 15 mg HS PO Last administered on 01/15/19at 20:46; Admin Dose 15 MG; Start 12/29/18 at 21:00 Pantoprazole (Protonix Tab) 40 mg DAILY@06 PO Last administered on 01/16/19 05:36; Admin Dose 40 MG; Start 12/30/18 at 06:00 Docusate Sodium (Colace) 100 mg BID PO Last administered on 01/16/19 08:41; Admin Dose 100 MG; Start 12/29/18 at 18:30 Clopidogrel Bisulfate (plaVIX) 75 mg DAILY PO Last administered on 01/16/19at 08:40; Admin Dose 75 MG; Start 01/03/19 at 09:00 Morphine Sulfate (morphine) 1 mg Q1H PRN IV SEVERE PAIN LEVEL 7-10 Last administered on 01/16/19 15:33; Admin Dose 1 MG; Start 01/04/19 at 16:00 Polyethylene Glycol (Miralax) 17 gm BID PRN PO CONSTIPATION Last administered on 01/16/19 15:37; Admin Dose 17 GM; Start 01/06/19 at 13:00 IV Flush (NS 10 ml) 10 ml PRN PRN IV flush; Start 01/06/19 at 18:30 Bisacodyl (Dulcolax Supp) 10 mg DAILY PRN [place] CONSTIPATION; Start 01/06/19 at 19:00 Albuterol/ Ipratropium (Duoneb) 3 ml Q4H RESP THERAPY PRN HHN SHORTNESS OF BREATH Last administered on 01/11/19 15:42; Admin Dose 3 ML; Start 01/07/19 at 20:00 IV Flush (NS 10 ml) 10 ml PRN PRN IV IV PROTOCOL; Start 01/12/19 at 18:00 Insulin Aspart (Novolog Insulin Pen) (Adult SC Insulin - Mild Algorithm)... AC MEALS AND BEDTIME SC Last administered on 01/15/19 08:10; Admin Dose 1 UNIT; Start 01/14/19 at 21:00 Carvedilol (Coreg) 25 mg BID PO Last administered on 01/16/19 08:40; Admin Dose 25 MG; Start 01/16/19 at 09:00 Bumetanide (Bumex) 1 mg DAILY PO Last administered on 01/16/19 08:41; Admin Dose 1 MG; Start 01/16/19 at 09:00 Potassium Chloride (Klor-Con 20) 20 meq BID PO Last administered on 01/16/19 08:42; Admin Dose 20 MEQ; Start 01/16/19 at 09:00 Ketorolac Tromethamine (Toradol) 15 mg Q6H PRN IV PAIN; Start 01/16/19 at 16:30; Stop 01/19/19 at 16:29 DELORIS EVANGELISTA January 16, 2019 16:58
[2019-01-16] MEDS: KETOROLAC 15 MG INJ IV PRN (18:46)
[2019-01-16] MEDS: ATORVASTATIN 80 MG TAB PO SCH (20:32)
[2019-01-16] MEDS: MIRTAZAPINE 15 MG TAB PO SCH (20:32)
[2019-01-16] MEDS ORDERED: DEXTROSE 5%-0.45% NACL 1,000 ML IV SCH (23:00)
[2019-01-17] VITALS (12 sets, daily range): BP systolic 99–130; BP diastolic 46–54; PULSE 78–138; RESP 18–22
[2019-01-17] MEDS: ACCU-CHEK XX SCH (01:37)
[2019-01-17] MEDS: PANTOPRAZOLE (EC) 40 MG TAB PO SCH (05:29)
[2019-01-17] MEDS: Insulin NOVOLOG SS MILD Algorithm (NPO/TPN/ENTERAL FEEDS) SC SCH ×5 (05:40→20:31)
[2019-01-17] MEDS ORDERED: INSULIN ASPART [NOVOLOG] 3 ML PEN SC SCH (06:00)
[2019-01-17] MEDS: KETOROLAC 15 MG INJ IV PRN ×2 (06:58→13:34)
[2019-01-17] MEDS: POTASSIUM CHLORIDE (SR) 20 MEQ TAB PO SCH ×2 (09:00→20:31)
--- NOTE | 2019-01-17 09:34 | CONS ---
Assessment/Plan Assessment/Plan Hospital Course (Demo Recall) 83 yo with STEMI/new LBBB, with severe 2V CAD, culprit lesion is LAD with SHERIN 2 flow on cath, with ischemic cardiomyopathy, lvef 40-45% and severe aortic regurgitation. Course complicated by acute heart failure, acute renal failure, and recurrent chest/epigastric pain. Underwent urgent PCI to mid LAD and staged PCI to RCA. Now with abdominal mass and abdominal pain, short run of ?afib two days ago, and debility. Impression: Acute SC with new LBBB Acute systolic heart failure, improved Acute on chronic renal insufficiency, resolved Severe aortic regurgitation which is chronic per Dr. Archuleta (opt diagnostic imaging manager), and moderate mitral regurgitation Hypertension, controlled Paroxysmal afib Abdominal mass/pain Severe debility Recommendations: Continue asa, statin, clopidogrel, carvedilol If creatinine remains at the current level, could consider addition of an peggy or arb for her cardiomyopathy Workup of abdominal mass and pain as per primary team PT/OT Nutrition support, Boost TID Discharge planning Consultation Date/Type/Reason Admit Date/Time December 28, 2018 at 03:23 Initial Consult Date 12/28/18 Type of Consult Cardiology Requesting Provider: KRYSTAL BERNARD Date/Time of Note DATE: 01/17/19 TIME: 09:32 24 HR Interval Summary Free Text/Dictation Patient now has an ngt in place, at bedside, she continues to have abdominal pain. Exam/Review of Systems Vital Signs Vitals Vital Signs Date Temp Pulse Resp B/P (MAP) Pulse Ox O2 O2 Flow FiO2 Time Delivery Rate 01/17/19 138 09:10 01/17/19 97.8 18 103/49 97 Nasal 07:29 (67) Cannula 01/17/19 4.0 01:44 Intake and Output 01/16/19 01/16/19 01/17/19 1515:00 23:00 07:00 IntakeIntake Total 0 ml OutputOutput Total 450 ml BalanceBalance -450 ml Exam Constitutional: alert, frail Psych: no complaints Head: normocephalic, atraumatic Eyes: EOMI, nl lids ENMT: nl external ears & nose Neck: No jvd, No bruits Respiratory: clear to auscultation, normal air movement Cardiovascular: regular rate and rhythm, murmurs/extra sounds Gastrointestinal: bowel sounds (heard), distended, firm, tender (diffusely) Extremities: edema (mild in upper extremities and feet) Skin: nl turgor, rash or lesions Labs Result Diagram: 01/17/19 0609 01/17/19 0608 Results 24hrs Laboratory Tests Test 01/16/19 11:48 01/16/19 17:56 01/16/19 20:28 01/17/19 01:26 Bedside Glucose 133 94 116 119 Test 01/17/19 05:31 01/17/19 06:08 01/17/19 06:09 01/17/19 08:58 Bedside Glucose 151 115 Sodium Level 142 Potassium Level 4.0 Chloride Level 107 Carbon Dioxide Level 33 H Anion Gap 2 L Blood Urea Nitrogen 45 H Creatinine 1.09 H Est Glomerular Filtrat Rate mL/min Glucose Level 131 Calcium Level 8.1 L Phosphorus Level 2.9 Magnesium Level 1.9 White Blood Count 20.5 H Red Blood Count 3.09 L Hemoglobin 9.4 L Hematocrit 29.9 L Mean Corpuscular 96.8 Volume Mean Corpuscular 30.4 Hemoglobin Mean Corpuscular 31.4 L Hemoglobin Concent Red Cell 19.9 H Distribution Width Platelet Count 181 Mean Platelet Volume 10.1 Immature 0.800 H Granulocytes % Neutrophils % 89.9 H Lymphocytes % 6.4 L Monocytes % 2.2 Eosinophils % 0.5 Basophils % 0.2 Nucleated Red Blood 0.0 Cells % Immature 0.160 H Granulocytes # Neutrophils # 18.4 H Lymphocytes # 1.3 Monocytes # 0.4 Eosinophils # 0.1 Basophils # 0.0 Nucleated Red Blood 0.0 Cells # Medications Medications Current Medications IV Flush (NS 3 ml) 3 ml PER PROTOCOL IV ; Start 12/28/18 at 04:30 Ondansetron HCl (Zofran Inj) 4 mg Q6H PRN IV NAUSEA/VOMITING Last administered on 01/13/19at 11:02; Admin Dose 4 MG; Start 12/28/18 at 04:30 Aspirin (Aspirin) 81 mg DAILY PO Last administered on 01/16/19at 08:41; Admin Dose 81 MG; Start 12/28/18 at 09:00 Nitroglycerin (Nitroglycerin (Sl Tab) 0.4 Mg) 1 tab Q5M PRN SL .CHEST PAIN Last administered on 01/10/19at 08:03; Admin Dose 1 TAB; Start 12/28/18 at 04:30 Miscellaneous Information 1 ea NOTE XX ; Start 12/28/18 at 05:00 Glucose (Glutose) 15 gm Q15M PRN PO DECREASED GLUCOSE; Start 12/28/18 at 05:00 Glucose (Glutose) 22.5 gm Q15M PRN PO DECREASED GLUCOSE; Start 12/28/18 at 05:00 Dextrose (D50w Syringe) 25 ml Q15M PRN IV DECREASED GLUCOSE; Start 12/28/18 at 05:00 Dextrose (D50w Syringe) 50 ml Q15M PRN IV DECREASED GLUCOSE; Start 12/28/18 at 05:00 Glucagon (Glucagen) 1 mg Q15M PRN IM DECREASED GLUCOSE; Start 12/28/18 at 05:00 Glucose (Glutose) 15 gm Q15M PRN BUCCAL DECREASED GLUCOSE; Start 12/28/18 at 05:00 Atorvastatin Calcium (Lipitor) 80 mg HS PO Last administered on 01/16/19at 20:32; Admin Dose 80 MG; Start 12/29/18 at 21:00 Phenol (Cepastat Lozenge) 1 lozenge Q1H PRN MT COUGH Last administered on 01/03/19at 13:05; Admin Dose 1 LOZENGE; Start 12/28/18 at 17:30 Escitalopram Oxalate (Lexapro) 10 mg DAILY PO Last administered on 01/16/19at 08:41; Admin Dose 10 MG; Start 12/29/18 at 09:30 Risedronate (Actonel) 35 mg Tu@AC BREAKFAST PO ; Start 12/30/18 at 07:00 Mirtazapine (Remeron) 15 mg HS PO Last administered on 01/16/19at 20:32; Admin Dose 15 MG; Start 12/29/18 at 21:00 Pantoprazole (Protonix Tab) 40 mg DAILY@06 PO Last administered on 01/17/19at 05:29; Admin Dose 40 MG; Start 12/30/18 at 06:00 Docusate Sodium (Colace) 100 mg BID PO Last administered on 01/16/19at 20:32; Admin Dose 100 MG; Start 12/29/18 at 18:30 Clopidogrel Bisulfate (plaVIX) 75 mg DAILY PO Last administered on 01/16/19at 08:40; Admin Dose 75 MG; Start 01/03/19 at 09:00 Morphine Sulfate (morphine) 1 mg Q1H PRN IV SEVERE PAIN LEVEL 7-10 Last administered on 01/16/19 15:33; Admin Dose 1 MG; Start 01/04/19 at 16:00 Polyethylene Glycol (Miralax) 17 gm BID PRN PO CONSTIPATION Last administered on 01/16/19 15:37; Admin Dose 17 GM; Start 01/06/19 at 13:00 IV Flush (NS 10 ml) 10 ml PRN PRN IV flush; Start 01/06/19 at 18:30 Bisacodyl (Dulcolax Supp) 10 mg DAILY PRN [place] CONSTIPATION; Start 01/06/19 at 19:00 Albuterol/ Ipratropium (Duoneb) 3 ml Q4H RESP THERAPY PRN HHN SHORTNESS OF BREATH Last administered on 01/11/19 15:42; Admin Dose 3 ML; Start 01/07/19 at 20:00 IV Flush (NS 10 ml) 10 ml PRN PRN IV IV PROTOCOL; Start 01/12/19 at 18:00 Carvedilol (Coreg) 25 mg BID PO Last administered on 01/16/19 20:32; Admin Dose 25 MG; Start 01/16/19 at 09:00 Bumetanide (Bumex) 1 mg DAILY PO Last administered on 01/16/19 08:41; Admin Dose 1 MG; Start 01/16/19 at 09:00 Potassium Chloride (Klor-Con 20) 20 meq BID PO Last administered on 01/16/19 20:31; Admin Dose 20 MEQ; Start 01/16/19 at 09:00 Ketorolac Tromethamine (Toradol) 15 mg Q6H PRN IV PAIN Last administered on 01/17/19 06:58; Admin Dose 15 MG; Start 01/16/19 at 16:30; Stop 01/19/19 at 16:29 Insulin Aspart (Novolog Insulin Pen) (Adult SC Insulin - Mild Algorithm)... Q4 SC Last administered on 01/17/19 05:40; Admin Dose 1 UNIT; Start 01/17/19 at 05:00 RODRIGUEZ GARZA January 17, 2019 09:34
--- NOTE | 2019-01-17 09:59 | CONS ---
Assessment/Plan Assessment/Plan Assessment/Plan (Daily) 1. Acute kidney injury on CKD III 2/2 Hemodynamics from CHF + NSTEMI - worsening renal failure 2. Hypokalemia 3. Hypernatremia -improved to normal 4. acute NSTEMI s/p LHC showed multivessel obstructive CAD - s/p Successful PTCA and stenting of proximal left anterior descending artery using a 3 x 20 mm Synergy drug-eluting stent on 01/04/19- s/p LHC with proximal RCA stenting on 01/08/19 5. CAD multivessel obstructive 6. Anemia of Chronic disease s/p 2 U PRBC on 01/07/19 Plan: BUN/Cr improved to 45/1.09, K 4.0- will change bumex to 0.5 mg po daily KCl 20MEQ PO BID d/c IVF for now Coreg increased to 25 mg pO BID< cardiology has been following will follow up Consultation Date/Type/Reason Admit Date/Time December 28, 2018 at 03:23 Initial Consult Date 12/28/18 Type of Consult NEPHROLOGY Requesting Provider: KRYSTAL BERNARD Date/Time of Note DATE: 01/17/19 TIME: 09:59 Exam/Review of Systems Exam Vitals Vital Signs Date Temp Pulse Resp B/P (MAP) Pulse Ox O2 O2 Flow FiO2 Time Delivery Rate 01/17/19 138 09:10 01/17/19 97.8 18 103/49 97 Nasal 07:29 (67) Cannula 01/17/19 4.0 01:44 Intake and Output 01/16/19 01/16/19 01/17/19 1515:00 23:00 07:00 IntakeIntake Total 0 ml OutputOutput Total 450 ml BalanceBalance -450 ml Exam Constitutional: alert Eyes: nl conjunctiva Neck: supple, non-tender Respiratory: clear to auscultation, diminished breath sounds Cardiovascular: regular rate and rhythm, nl pulses Gastrointestinal: soft, non-tender Extremities: normal pulses 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 Results Result Diagram: 01/17/19 0609 01/17/19 0608 Results 24hrs Laboratory Tests Test 01/16/19 11:48 01/16/19 17:56 01/16/19 20:28 01/17/19 01:26 Bedside Glucose 133 94 116 119 Test 01/17/19 05:31 01/17/19 06:08 01/17/19 06:09 01/17/19 08:58 Bedside Glucose 151 115 Sodium Level 142 Potassium Level 4.0 Chloride Level 107 Carbon Dioxide Level 33 H Anion Gap 2 L Blood Urea Nitrogen 45 H Creatinine 1.09 H Est Glomerular Filtrat Rate mL/min Glucose Level 131 Calcium Level 8.1 L Phosphorus Level 2.9 Magnesium Level 1.9 White Blood Count 20.5 H Red Blood Count 3.09 L Hemoglobin 9.4 L Hematocrit 29.9 L Mean Corpuscular 96.8 Volume Mean Corpuscular 30.4 Hemoglobin Mean Corpuscular 31.4 L Hemoglobin Concent Red Cell 19.9 H Distribution Width Platelet Count 181 Mean Platelet Volume 10.1 Immature 0.800 H Granulocytes % Neutrophils % 89.9 H Lymphocytes % 6.4 L Monocytes % 2.2 Eosinophils % 0.5 Basophils % 0.2 Nucleated Red Blood 0.0 Cells % Immature 0.160 H Granulocytes # Neutrophils # 18.4 H Lymphocytes # 1.3 Monocytes # 0.4 Eosinophils # 0.1 Basophils # 0.0 Nucleated Red Blood 0.0 Cells # Medications Medication Current Medications IV Flush (NS 3 ml) 3 ml PER PROTOCOL IV ; Start 12/28/18 at 04:30 Ondansetron HCl (Zofran Inj) 4 mg Q6H PRN IV NAUSEA/VOMITING Last administered on 01/13/19at 11:02; Admin Dose 4 MG; Start 12/28/18 at 04:30 Aspirin (Aspirin) 81 mg DAILY PO Last administered on 01/16/19at 08:41; Admin Dose 81 MG; Start 12/28/18 at 09:00 Nitroglycerin (Nitroglycerin (Sl Tab) 0.4 Mg) 1 tab Q5M PRN SL .CHEST PAIN Last administered on 01/10/19at 08:03; Admin Dose 1 TAB; Start 12/28/18 at 04:30 Miscellaneous Information 1 ea NOTE XX ; Start 12/28/18 at 05:00 Glucose (Glutose) 15 gm Q15M PRN PO DECREASED GLUCOSE; Start 12/28/18 at 05:00 Glucose (Glutose) 22.5 gm Q15M PRN PO DECREASED GLUCOSE; Start 12/28/18 at 05:00 Dextrose (D50w Syringe) 25 ml Q15M PRN IV DECREASED GLUCOSE; Start 12/28/18 at 05:00 Dextrose (D50w Syringe) 50 ml Q15M PRN IV DECREASED GLUCOSE; Start 12/28/18 at 05:00 Glucagon (Glucagen) 1 mg Q15M PRN IM DECREASED GLUCOSE; Start 12/28/18 at 05:00 Glucose (Glutose) 15 gm Q15M PRN BUCCAL DECREASED GLUCOSE; Start 12/28/18 at 05:00 Atorvastatin Calcium (Lipitor) 80 mg HS PO Last administered on 01/16/19 20:32; Admin Dose 80 MG; Start 12/29/18 at 21:00 Phenol (Cepastat Lozenge) 1 lozenge Q1H PRN MT COUGH Last administered on 01/03/19 13:05; Admin Dose 1 LOZENGE; Start 12/28/18 at 17:30 Escitalopram Oxalate (Lexapro) 10 mg DAILY PO Last administered on 01/16/19 08:41; Admin Dose 10 MG; Start 12/29/18 at 09:30 Risedronate (Actonel) 35 mg Tu@AC BREAKFAST PO ; Start 12/30/18 at 07:00 Mirtazapine (Remeron) 15 mg HS PO Last administered on 01/16/19 20:32; Admin Dose 15 MG; Start 12/29/18 at 21:00 Pantoprazole (Protonix Tab) 40 mg DAILY@06 PO Last administered on 01/17/19 05:29; Admin Dose 40 MG; Start 12/30/18 at 06:00 Docusate Sodium (Colace) 100 mg BID PO Last administered on 01/16/19 20:32; Admin Dose 100 MG; Start 12/29/18 at 18:30 Clopidogrel Bisulfate (plaVIX) 75 mg DAILY PO Last administered on 01/16/19 08:40; Admin Dose 75 MG; Start 01/03/19 at 09:00 Morphine Sulfate (morphine) 1 mg Q1H PRN IV SEVERE PAIN LEVEL 7-10 Last administered on 01/16/19 15:33; Admin Dose 1 MG; Start 01/04/19 at 16:00 Polyethylene Glycol (Miralax) 17 gm BID PRN PO CONSTIPATION Last administered on 01/16/19 15:37; Admin Dose 17 GM; Start 01/06/19 at 13:00 IV Flush (NS 10 ml) 10 ml PRN PRN IV flush; Start 01/06/19 at 18:30 Bisacodyl (Dulcolax Supp) 10 mg DAILY PRN [place] CONSTIPATION; Start 01/06/19 at 19:00 Albuterol/ Ipratropium (Duoneb) 3 ml Q4H RESP THERAPY PRN HHN SHORTNESS OF BREATH Last administered on 01/11/19at 15:42; Admin Dose 3 ML; Start 01/07/19 at 20:00 IV Flush (NS 10 ml) 10 ml PRN PRN IV IV PROTOCOL; Start 01/12/19 at 18:00 Carvedilol (Coreg) 25 mg BID PO Last administered on 01/16/19 20:32; Admin Dose 25 MG; Start 01/16/19 at 09:00 Bumetanide (Bumex) 1 mg DAILY PO Last administered on 01/16/19 08:41; Admin Dose 1 MG; Start 01/16/19 at 09:00 Potassium Chloride (Klor-Con 20) 20 meq BID PO Last administered on 01/16/19at 20:31; Admin Dose 20 MEQ; Start 01/16/19 at 09:00 Ketorolac Tromethamine (Toradol) 15 mg Q6H PRN IV PAIN Last administered on 01/17/19 06:58; Admin Dose 15 MG; Start 01/16/19 at 16:30; Stop 01/19/19 at 16:29 Insulin Aspart (Novolog Insulin Pen) (Adult SC Insulin - Mild Algorithm)... Q4 SC Last administered on 01/17/19at 05:40; Admin Dose 1 UNIT; Start 01/17/19 at 05:00 Piperacillin Sod/ Tazobactam Sod 100 ml @ 25 mls/hr TID@02,,18 IVPB ; Start 01/17/19 at 10:00; Status PATTI RICHTER MD January 17, 2019 09:59
[2019-01-17] MEDS ORDERED: VANCOMYCIN IV PER PHARMACY XX SCH (10:00)
--- NOTE | 2019-01-17 10:03 | CONS ---
Assessment/Plan Assessment/Plan Assessment/Plan (Daily) Assessment and recommendations; 1. Patient admitted with pneumonia and CHF and also had acute ME status post PTCA. 2. Acute renal injury with continually improving renal function. 3. CHF, with bilateral pleural effusions. 4. Dense right upper lobe consolidation. Patient was having persistent l eukocytosis. 5. Likely chronic type II respiratory failure as well. 6. History of hypertension. 7. Anemia and thrombocytopenia. 8. Coagulation negative staph aureus bacteremia with the most recent cultures being negative. Continue current supportive care. Add Zosyn and vancomycin to be dosed by pharmacy. Patient possibly may require right upper lobe lung biopsy. Consultation Date/Type/Reason Admit Date/Time December 28, 2018 at 03:23 Initial Consult Date 01/12/19 Type of Consult Pulmonary Requesting Provider: KRYSTAL BERNARD Date/Time of Note DATE: 01/17/19 TIME: 10:00 24 HR Interval Summary Free Text/Dictation Patient's condition remains tenuous. Still on 4 L nasal cannula. Complains of mild shortness of breath. Patient also complaining of abdominal distention. But denies any nausea vomiting. General exam; elderly lady, awake and alert. Currently in no distress. Appears anxious. Exam/Review of Systems Exam Vitals Vital Signs Date Temp Pulse Resp B/P (MAP) Pulse Ox O2 O2 Flow FiO2 Time Delivery Rate 01/17/19 138 09:10 01/17/19 97.8 18 103/49 97 Nasal 07:29 (67) Cannula 01/17/19 4.0 01:44 Intake and Output 01/16/19 01/16/19 01/17/19 1515:00 23:00 07:00 IntakeIntake Total 0 ml OutputOutput Total 450 ml BalanceBalance -450 ml Exam H EENT exam; supple neck, no JVD. No lymphadenopathy. Midline trachea. No thyromegaly. Nasogastric tube in place. Patient does have carious teeth. Chest exam; diminished breath sounds throughout. S1-S2 audible, no murmurs. Regular rhythm. Abdomen exam; soft, there is mild upper abdominal distention. Bowel sounds are audible. No organomegaly. There is mild tenderness in bilateral lower quadrants. Extremity exam; trace edema. 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 Results Result Diagram: 01/17/19 0609 01/17/19 0608 Results 24hrs Laboratory Tests Test 01/16/19 11:48 01/16/19 17:56 01/16/19 20:28 01/17/19 01:26 Bedside Glucose 133 94 116 119 Test 01/17/19 05:31 01/17/19 06:08 01/17/19 06:09 01/17/19 08:58 Bedside Glucose 151 115 Sodium Level 142 Potassium Level 4.0 Chloride Level 107 Carbon Dioxide Level 33 H Anion Gap 2 L Blood Urea Nitrogen 45 H Creatinine 1.09 H Est Glomerular Filtrat Rate mL/min Glucose Level 131 Calcium Level 8.1 L Phosphorus Level 2.9 Magnesium Level 1.9 White Blood Count 20.5 H Red Blood Count 3.09 L Hemoglobin 9.4 L Hematocrit 29.9 L Mean Corpuscular 96.8 Volume Mean Corpuscular 30.4 Hemoglobin Mean Corpuscular 31.4 L Hemoglobin Concent Red Cell 19.9 H Distribution Width Platelet Count 181 Mean Platelet Volume 10.1 Immature 0.800 H Granulocytes % Neutrophils % 89.9 H Lymphocytes % 6.4 L Monocytes % 2.2 Eosinophils % 0.5 Basophils % 0.2 Nucleated Red Blood 0.0 Cells % Immature 0.160 H Granulocytes # Neutrophils # 18.4 H Lymphocytes # 1.3 Monocytes # 0.4 Eosinophils # 0.1 Basophils # 0.0 Nucleated Red Blood 0.0 Cells # Medications Medication Current Medications IV Flush (NS 3 ml) 3 ml PER PROTOCOL IV ; Start 12/28/18 at 04:30 Ondansetron HCl (Zofran Inj) 4 mg Q6H PRN IV NAUSEA/VOMITING Last administered on 01/13/19at 11:02; Admin Dose 4 MG; Start 12/28/18 at 04:30 Aspirin (Aspirin) 81 mg DAILY PO Last administered on 01/16/19at 08:41; Admin Dose 81 MG; Start 12/28/18 at 09:00 Nitroglycerin (Nitroglycerin (Sl Tab) 0.4 Mg) 1 tab Q5M PRN SL .CHEST PAIN Last administered on 01/10/19at 08:03; Admin Dose 1 TAB; Start 12/28/18 at 04:30 Miscellaneous Information 1 ea NOTE XX ; Start 12/28/18 at 05:00 Glucose (Glutose) 15 gm Q15M PRN PO DECREASED GLUCOSE; Start 12/28/18 at 05:00 Glucose (Glutose) 22.5 gm Q15M PRN PO DECREASED GLUCOSE; Start 12/28/18 at 05:00 Dextrose (D50w Syringe) 25 ml Q15M PRN IV DECREASED GLUCOSE; Start 12/28/18 at 05:00 Dextrose (D50w Syringe) 50 ml Q15M PRN IV DECREASED GLUCOSE; Start 12/28/18 at 05:00 Glucagon (Glucagen) 1 mg Q15M PRN IM DECREASED GLUCOSE; Start 12/28/18 at 05:00 Glucose (Glutose) 15 gm Q15M PRN BUCCAL DECREASED GLUCOSE; Start 12/28/18 at 05:00 Atorvastatin Calcium (Lipitor) 80 mg HS PO Last administered on 01/16/19 20:32; Admin Dose 80 MG; Start 12/29/18 at 21:00 Phenol (Cepastat Lozenge) 1 lozenge Q1H PRN MT COUGH Last administered on 01/03/19at 13:05; Admin Dose 1 LOZENGE; Start 12/28/18 at 17:30 Escitalopram Oxalate (Lexapro) 10 mg DAILY PO Last administered on 01/16/19 08:41; Admin Dose 10 MG; Start 12/29/18 at 09:30 Risedronate (Actonel) 35 mg Tu@AC BREAKFAST PO ; Start 12/30/18 at 07:00 Mirtazapine (Remeron) 15 mg HS PO Last administered on 01/16/19 20:32; Admin Dose 15 MG; Start 12/29/18 at 21:00 Pantoprazole (Protonix Tab) 40 mg DAILY@06 PO Last administered on 01/17/19 05:29; Admin Dose 40 MG; Start 12/30/18 at 06:00 Docusate Sodium (Colace) 100 mg BID PO Last administered on 01/16/19 20:32; Admin Dose 100 MG; Start 12/29/18 at 18:30 Clopidogrel Bisulfate (plaVIX) 75 mg DAILY PO Last administered on 01/16/19 08:40; Admin Dose 75 MG; Start 01/03/19 at 09:00 Morphine Sulfate (morphine) 1 mg Q1H PRN IV SEVERE PAIN LEVEL 7-10 Last administered on 01/16/19 15:33; Admin Dose 1 MG; Start 01/04/19 at 16:00 Polyethylene Glycol (Miralax) 17 gm BID PRN PO CONSTIPATION Last administered on 01/16/19at 15:37; Admin Dose 17 GM; Start 01/06/19 at 13:00 IV Flush (NS 10 ml) 10 ml PRN PRN IV flush; Start 01/06/19 at 18:30 Bisacodyl (Dulcolax Supp) 10 mg DAILY PRN [place] CONSTIPATION; Start 01/06/19 at 19:00 Albuterol/ Ipratropium (Duoneb) 3 ml Q4H RESP THERAPY PRN HHN SHORTNESS OF BREATH Last administered on 01/11/19at 15:42; Admin Dose 3 ML; Start 01/07/19 at 20:00 IV Flush (NS 10 ml) 10 ml PRN PRN IV IV PROTOCOL; Start 01/12/19 at 18:00 Carvedilol (Coreg) 25 mg BID PO Last administered on 01/16/19at 20:32; Admin Dose 25 MG; Start 01/16/19 at 09:00 Bumetanide (Bumex) 1 mg DAILY PO Last administered on 01/16/19at 08:41; Admin Dose 1 MG; Start 01/16/19 at 09:00 Potassium Chloride (Klor-Con 20) 20 meq BID PO Last administered on 01/16/19at 20:31; Admin Dose 20 MEQ; Start 01/16/19 at 09:00 Ketorolac Tromethamine (Toradol) 15 mg Q6H PRN IV PAIN Last administered on 01/17/19at 06:58; Admin Dose 15 MG; Start 01/16/19 at 16:30; Stop 01/19/19 at 16:29 Insulin Aspart (Novolog Insulin Pen) (Adult SC Insulin - Mild Algorithm)... Q4 SC Last administered on 01/17/19at 05:40; Admin Dose 1 UNIT; Start 01/17/19 at 05:00 Piperacillin Sod/ Tazobactam Sod 100 ml @ 25 mls/hr TID@02,10,18 IVPB ; Start 01/17/19 at 10:00; Status BARBARA ANAND January 17, 2019 10:02
[2019-01-17] MEDS ORDERED: VANCOMYCIN HCL 1.5 GM in SOD CHLORIDE 0.9% 250 ML IVPB SCH (12:00)
[2019-01-17] MEDS ORDERED: METOCLOPRAMIDE 10 MG INJ IV ONE (12:00)
[2019-01-17] MEDS: PIPER-TAZO 3.375 GM IV (PMX) 100 ML IVPB SCH ×2 (12:25→18:44)
--- NOTE | 2019-01-17 12:33 | PN ---
Date/Time of Note Date/Time of Note DATE: 01/17/19 TIME: 12:27 Assessment/Plan VTE Prophylaxis Risk score (from [facility] [place])>0 risk: 8 SCD applied (from [facility] [place]): Yes Pharmacological prophylaxis: NA/contraindicated Pharm contraindication: renal impairment Assessment/Plan Hospital Course 83 yo [place]ian-speaking woman with history of dementia, hypertension, dyslipidemia, severe MR and aortic stenosis, arrhythmia who presents with ACS and multi-vessel coronary artery disease. #Acute NH - STEMI with LBBB - patient had cardiac cath on 12/28, found with: Severe 2 vessel CAD, LAD and RCA, LAD is culprit with francine 2 flow, and cardiomyopathy with LVEF 35%. Again patient also with severe aortic regurgitation and at least moderate mitral regurgitation. - Continue, Lipitor, beta-geovanny, statin, Plavix and Imdur - Now s/p PCI to LAD (01/04) and RCA (01/08) - She does also have severe AI, may need TAVR in the future # Bilateral dense perihilar parenchymal consolidation, right greater than left -Neurology recommending to restart antibiotics, vancomycin and Zosyn have been reinitiated #Acute CHF exacerbation-stable - likely due to acute ischemic CAD/STEMI - currently on Bumex -Status post nitro gtt #Bacteremia: 2 out of 2 bottles positive for coagulase-negative staph - Finished 7 days of zosyn+vanco. -Short course of antibiotics given due to drug rash -Repeat blood cultures are negative #Rash-improved - Erythematous, macular rash on lower abdomen and part of chest noted 01/07 - May be related to transfusion, or drug reaction. - Got decadon, benadryl, pepcid without significant improvement but has not improved #WILLIAM: Patient was having poor urine output but renal function has improved and urine output has increased -Status post Bumex drip and now transitioned to scheduled Bumex -Nephrology following -No CRISTINO or ARB at this time #Acute on chronic encephalopathy -Patient with baseline dementia but mentation has worsened likely secondary to delirium #Abdominal pain secondary to mild ileus and abdominal distention -KUB does show few mildly distended air filled loops of small bowel -Abdominal ultrasound shows a large echogenic lesion in the upper abdomen may represent fluid distended stomach versus mass, Recommend CT scan for further evaluation -CT abdomen showed only a distended abdomen, no masses noted, no SBO -Repleted potassium as hypokalemia may be contributing to ileus -NG tube placed due to severely distended stomach but distention persists, NG tube in appropriate position, thick gastric aspirate noted, water flush -Start Reglan IV scheduled -GI consultation obtained Prophylaxis: SCDs DC planning: Patient has been refusing discharge to [place], patient has been accepted at rehab facility, anticipate DC over the weekend once patient is more stable Result Diagram: 01/17/19 0609 01/17/19 0608 Results 24hrs Laboratory Tests Test 01/16/19 17:56 01/16/19 20:28 01/17/19 01:26 01/17/19 05:31 Bedside Glucose 94 116 119 151 Test 01/17/19 06:08 01/17/19 06:09 01/17/19 08:58 Sodium Level 142 Potassium Level 4.0 Chloride Level 107 Carbon Dioxide Level 33 H Anion Gap 2 L Blood Urea Nitrogen 45 H Creatinine 1.09 H Est Glomerular Filtrat Rate mL/min Glucose Level 131 Calcium Level 8.1 L Phosphorus Level 2.9 Magnesium Level 1.9 White Blood Count 20.5 H Red Blood Count 3.09 L Hemoglobin 9.4 L Hematocrit 29.9 L Mean Corpuscular 96.8 Volume Mean Corpuscular 30.4 Hemoglobin Mean Corpuscular 31.4 L Hemoglobin Concent Red Cell 19.9 H Distribution Width Platelet Count 181 Mean Platelet Volume 10.1 Immature 0.800 H Granulocytes % Neutrophils % 89.9 H Lymphocytes % 6.4 L Monocytes % 2.2 Eosinophils % 0.5 Basophils % 0.2 Nucleated Red Blood 0.0 Cells % Immature 0.160 H Granulocytes # Neutrophils # 18.4 H Lymphocytes # 1.3 Monocytes # 0.4 Eosinophils # 0.1 Basophils # 0.0 Nucleated Red Blood 0.0 Cells # Bedside Glucose 115 Subjective 24 Hr Interval Summary Gastrointestinal: pain Exam/Review of Systems Exam Vitals Vital Signs Date Temp Pulse Resp B/P (MAP) Pulse Ox O2 O2 Flow FiO2 Time Delivery Rate 01/17/19 99.0 90 22 111/54 95 Nasal 11:26 (73) Cannula 01/17/19 4.0 01:44 Intake and Output 01/16/19 01/16/19 01/17/19 1515:00 23:00 07:00 IntakeIntake Total 0 ml OutputOutput Total 450 ml BalanceBalance -450 ml Psych: confusion Respiratory: clear to auscultation Cardiovascular: regular rate and rhythm Gastrointestinal: soft, distended Musculoskeletal: nl extremities to inspection Results Results 24hrs Laboratory Tests Test 01/16/19 17:56 01/16/19 20:28 01/17/19 01:26 01/17/19 05:31 Bedside Glucose 94 116 119 151 Test 01/17/19 06:08 01/17/19 06:09 01/17/19 08:58 Sodium Level 142 Potassium Level 4.0 Chloride Level 107 Carbon Dioxide Level 33 H Anion Gap 2 L Blood Urea Nitrogen 45 H Creatinine 1.09 H Est Glomerular Filtrat Rate mL/min Glucose Level 131 Calcium Level 8.1 L Phosphorus Level 2.9 Magnesium Level 1.9 White Blood Count 20.5 H Red Blood Count 3.09 L Hemoglobin 9.4 L Hematocrit 29.9 L Mean Corpuscular 96.8 Volume Mean Corpuscular 30.4 Hemoglobin Mean Corpuscular 31.4 L Hemoglobin Concent Red Cell 19.9 H Distribution Width Platelet Count 181 Mean Platelet Volume 10.1 Immature 0.800 H Granulocytes % Neutrophils % 89.9 H Lymphocytes % 6.4 L Monocytes % 2.2 Eosinophils % 0.5 Basophils % 0.2 Nucleated Red Blood 0.0 Cells % Immature 0.160 H Granulocytes # Neutrophils # 18.4 H Lymphocytes # 1.3 Monocytes # 0.4 Eosinophils # 0.1 Basophils # 0.0 Nucleated Red Blood 0.0 Cells # Bedside Glucose 115 Medications Medication Current Medications IV Flush (NS 3 ml) 3 ml PER PROTOCOL IV ; Start 12/28/18 at 04:30 Ondansetron HCl (Zofran Inj) 4 mg Q6H PRN IV NAUSEA/VOMITING Last administered on 01/13/19at 11:02; Admin Dose 4 MG; Start 12/28/18 at 04:30 Aspirin (Aspirin) 81 mg DAILY PO Last administered on 01/16/19at 08:41; Admin Dose 81 MG; Start 12/28/18 at 09:00 Nitroglycerin (Nitroglycerin (Sl Tab) 0.4 Mg) 1 tab Q5M PRN SL .CHEST PAIN Last administered on 01/10/19at 08:03; Admin Dose 1 TAB; Start 12/28/18 at 04:30 Miscellaneous Information 1 ea NOTE XX ; Start 12/28/18 at 05:00 Glucose (Glutose) 15 gm Q15M PRN PO DECREASED GLUCOSE; Start 12/28/18 at 05:00 Glucose (Glutose) 22.5 gm Q15M PRN PO DECREASED GLUCOSE; Start 12/28/18 at 05:00 Dextrose (D50w Syringe) 25 ml Q15M PRN IV DECREASED GLUCOSE; Start 12/28/18 at 0 5:00 Dextrose (D50w Syringe) 50 ml Q15M PRN IV DECREASED GLUCOSE; Start 12/28/18 at 05:00 Glucagon (Glucagen) 1 mg Q15M PRN IM DECREASED GLUCOSE; Start 12/28/18 at 05:00 Glucose (Glutose) 15 gm Q15M PRN BUCCAL DECREASED GLUCOSE; Start 12/28/18 at 05:00 Atorvastatin Calcium (Lipitor) 80 mg HS PO Last administered on 01/16/19at 20:32; Admin Dose 80 MG; Start 12/29/18 at 21:00 Phenol (Cepastat Lozenge) 1 lozenge Q1H PRN MT COUGH Last administered on 01/03/19at 13:05; Admin Dose 1 LOZENGE; Start 12/28/18 at 17:30 Escitalopram Oxalate (Lexapro) 10 mg DAILY PO Last administered on 01/16/19at 08:41; Admin Dose 10 MG; Start 12/29/18 at 09:30 Risedronate (Actonel) 35 mg Tu@AC BREAKFAST PO ; Start 12/30/18 at 07:00 Mirtazapine (Remeron) 15 mg HS PO Last administered on 01/16/19 20:32; Admin Dose 15 MG; Start 12/29/18 at 21:00 Pantoprazole (Protonix Tab) 40 mg DAILY@06 PO Last administered on 01/17/19 05:29; Admin Dose 40 MG; Start 12/30/18 at 06:00 Docusate Sodium (Colace) 100 mg BID PO Last administered on 01/16/19 20:32; Admin Dose 100 MG; Start 12/29/18 at 18:30 Clopidogrel Bisulfate (plaVIX) 75 mg DAILY PO Last administered on 01/16/19at 08:40; Admin Dose 75 MG; Start 01/03/19 at 09:00 Morphine Sulfate (morphine) 1 mg Q1H PRN IV SEVERE PAIN LEVEL 7-10 Last administered on 01/16/19 15:33; Admin Dose 1 MG; Start 01/04/19 at 16:00 Polyethylene Glycol (Miralax) 17 gm BID PRN PO CONSTIPATION Last administered on 01/16/19 15:37; Admin Dose 17 GM; Start 01/06/19 at 13:00 IV Flush (NS 10 ml) 10 ml PRN PRN IV flush; Start 01/06/19 at 18:30 Bisacodyl (Dulcolax Supp) 10 mg DAILY PRN [place] CONSTIPATION; Start 01/06/19 at 19:00 Albuterol/ Ipratropium (Duoneb) 3 ml Q4H RESP THERAPY PRN HHN SHORTNESS OF BREATH Last administered on 01/11/19 15:42; Admin Dose 3 ML; Start 01/07/19 at 20:00 IV Flush (NS 10 ml) 10 ml PRN PRN IV IV PROTOCOL; Start 01/12/19 at 18:00 Carvedilol (Coreg) 25 mg BID PO Last administered on 01/16/19 20:32; Admin Dose 25 MG; Start 01/16/19 at 09:00 Bumetanide (Bumex) 1 mg DAILY PO Last administered on 01/16/19 08:41; Admin Dose 1 MG; Start 01/16/19 at 09:00 Potassium Chloride (Klor-Con 20) 20 meq BID PO Last administered on 01/16/19 20:31; Admin Dose 20 MEQ; Start 01/16/19 at 09:00 Ketorolac Tromethamine (Toradol) 15 mg Q6H PRN IV PAIN Last administered on 01/17/19 06:58; Admin Dose 15 MG; Start 01/16/19 at 16:30; Stop 01/19/19 at 16:29 Insulin Aspart (Novolog Insulin Pen) (Adult SC Insulin - Mild Algorithm)... Q4 SC Last administered on 01/17/19 05:40; Admin Dose 1 UNIT; Start 01/17/19 at 05:00 Piperacillin Sod/ Tazobactam Sod 100 ml @ 25 mls/hr TID@02,10,18 IVPB Last administered on 01/17/19 12:25; Admin Dose 25 MLS/HR; Start 01/17/19 at 10:00 Vancomycin HCl (Vanco Iv Per Pharmacy) VANCOMYCIN PER PHARMACY PER PROTOCOL XX ; Start 01/17/19 at 10:00 Vancomycin HCl 1.5 gm/Sodium Chloride 250 ml @ 83.333 mls/ hr ONCE@1200 IVPB Last administered on 01/17/19at 12:24; Admin Dose 83.333 MLS/HR; Start 01/17/19 at 12:00; Stop 01/17/19 at 19:00 Vancomycin HCl 250 ml @ 100 mls/hr Q24H IVPB ; Start 01/18/19 at 12:00 DELORIS EVANGELISTA January 17, 2019 12:33
[2019-01-17] MEDS: ONDANSETRON 4 MG INJ IV PRN (13:34)
--- NOTE | 2019-01-17 13:54 | CONS ---
Assessment/Plan Assessment/Plan Hospital Course (Demo Recall) Summary Assessment and Plan: Assessment: Abdominal pain/abdominal distention -CT abd/pelvis-Mild distension of the ascending and transverse colon with air-fluid levels. No evidence of bowel obstruction -KUB 01/14- Nonspecific bowel gas pattern with a few mildly distended air filled loops of small bowel. Leukocytosis Acute AR - S/p PCI to LAD (01/04) and RCA (01/08) Bilateral infiltrates, greatest in the right upper lobe CHF, with bilateral pleural effusion Bacteremia -Positive for coagulase-negative staph -Repeat blood cultures are negative Rash-2/2 to antibiotics- improved WILLIAM Acute on chronic encephalopathy -Patient with baseline dementia Diarrhea/loose stool Plan: Continue PPI tx Reglan 10 mg Iv q8 hrs NGT- LIS Monitor labs Stool studies- although patient already on Vancomycin Patient seen in collaboration with Dr. 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 Also noted during hospitalization patient with increased abdominal pain and abdominal distention she had a KUB which showed few mildly distended air filled loops of the small bowel and abdominal ultrasound showing large echogenic lesion in the upper abdomen may represent fluid distention stomach versus mass a CT was recommended. Patient underwent CT abdomen showing a distended abdomen no mass or small bowel obstruction and noted NG tube has been placed moderate/large amount of thick gastric drainage noted she has been consulted for further evaluation. Today patient did have a very large loose/watery stool is noted to have persistent leukocytosis. With the use of applications administrator patient currently denies nausea/vomiting or abdominal pain however she did receive pain medication earlier today. We will plan to increase Reglan check stool studies. Review of Systems: [A 12 system, review was conducted and is negative except as noted in the HPI or here.] Past Medical History Medical History: congestive heart failure, coronary artery disease, diabetes, high cholesterol, hypertension Home Meds Reported Medications Atenolol* (Atenolol*) 25 Mg Tablet, 25 MG PO DAILY, #30 TAB 12/29/18 Icosapent Ethyl (VASCEPA) 1 Gm Capsule, 2 GM PO BID, CAP 12/29/18 Linagliptin (TRADJENTA) 5 Mg Tablet, 5 MG PO DAILY, TAB 12/29/18 Risedronate* (Actonel*) 35 Mg Tablet, 35 MG PO Q7D, #4 TAB 12/29/18 Dexlansoprazole (Dexilant) 60 Mg James., 60 MG PO DAILY, #30 CAP 12/29/18 Fenofibrate Nanocrystallized* (Fenofibrate*) 145 Mg Tablet, 145 MG PO DAILY, TAB 12/29/18 Rosuvastatin Calcium* (Crestor*) 40 Mg Tablet, 40 MG PO QHS, #30 TAB 12/29/18 Escitalopram Oxalate* (Lexapro*) 10 Mg Tablet, 10 MG PO DAILY, #30 TAB 12/29/18 Mirtazapine* (Mirtazapine*) 15 Mg Tablet, 15 MG PO HS, TAB 12/29/18 Tramadol Hcl* (Ultram*) 50 Mg Tablet, 50 MG PO Q6H PRN for PAIN, TAB 12/29/18 Furosemide* (Furosemide*) 40 Mg Tablet, 40 MG PO DAILY, TAB 12/29/18 Allopurinol* (Allopurinol*) 300 Mg Tablet, 300 MG PO DAILY, TAB 12/29/18 Folic Acid* (Folic Acid*) 1 Mg Tablet, 1 MG PO DAILY, TAB 12/29/18 Ergocalciferol (Vitamin D2) (VITAMIN D2) 50,000 Unit Capsule, 37708 UNIT PO ONCE A WEEK, CAP 12/29/18 Ferrous Sulfate* (Ferrous Sulfate*) 325 Mg Tabec, 325 MG PO TID, TAB 12/29/18 Hydralazine Hcl* (Apresoline*) 50 Mg Tab, 50 MG PO TID, #90 TAB 12/29/18 Medications Current Medications IV Flush (NS 3 ml) 3 ml PER PROTOCOL IV ; Start 12/28/18 at 04:30 Ondansetron HCl (Zofran Inj) 4 mg Q6H PRN IV NAUSEA/VOMITING Last administered on 01/17/19 13:34; Admin Dose 4 MG; Start 12/28/18 at 04:30 Aspirin (Aspirin) 81 mg DAILY PO Last administered on 01/16/19 08:41; Admin Dose 81 MG; Start 12/28/18 at 09:00 Nitroglycerin (Nitroglycerin (Sl Tab) 0.4 Mg) 1 tab Q5M PRN SL .CHEST PAIN Last administered on 01/10/19 08:03; Admin Dose 1 TAB; Start 12/28/18 at 04:30 Miscellaneous Information 1 ea NOTE XX ; Start 12/28/18 at 05:00 Glucose (Glutose) 15 gm Q15M PRN PO DECREASED GLUCOSE; Start 12/28/18 at 05:00 Glucose (Glutose) 22.5 gm Q15M PRN PO DECREASED GLUCOSE; Start 12/28/18 at 05:00 Dextrose (D50w Syringe) 25 ml Q15M PRN IV DECREASED GLUCOSE; Start 12/28/18 at 05:00 Dextrose (D50w Syringe) 50 ml Q15M PRN IV DECREASED GLUCOSE; Start 12/28/18 at 05:00 Glucagon (Glucagen) 1 mg Q15M PRN IM DECREASED GLUCOSE; Start 12/28/18 at 05:00 Glucose (Glutose) 15 gm Q15M PRN BUCCAL DECREASED GLUCOSE; Start 12/28/18 at 05:00 Atorvastatin Calcium (Lipitor) 80 mg HS PO Last administered on 01/16/19 20:32; Admin Dose 80 MG; Start 12/29/18 at 21:00 Phenol (Cepastat Lozenge) 1 lozenge Q1H PRN MT COUGH Last administered on 01/03/19 13:05; Admin Dose 1 LOZENGE; Start 12/28/18 at 17:30 Escitalopram Oxalate (Lexapro) 10 mg DAILY PO Last administered on 01/16/19 08:41; Admin Dose 10 MG; Start 12/29/18 at 09:30 Risedronate (Actonel) 35 mg Tu@AC BREAKFAST PO ; Start 12/30/18 at 07:00 Mirtazapine (Remeron) 15 mg HS PO Last administered on 01/16/19 20:32; Admin Dose 15 MG; Start 12/29/18 at 21:00 Pantoprazole (Protonix Tab) 40 mg DAILY@06 PO Last administered on 01/17/19 05:29; Admin Dose 40 MG; Start 12/30/18 at 06:00 Docusate Sodium (Colace) 100 mg BID PO Last administered on 01/16/19 20:32; Admin Dose 100 MG; Start 12/29/18 at 18:30 Clopidogrel Bisulfate (plaVIX) 75 mg DAILY PO Last administered on 01/16/19 08:40; Admin Dose 75 MG; Start 01/03/19 at 09:00 Morphine Sulfate (morphine) 1 mg Q1H PRN IV SEVERE PAIN LEVEL 7-10 Last admi nistered on 01/16/19 15:33; Admin Dose 1 MG; Start 01/04/19 at 16:00 Polyethylene Glycol (Miralax) 17 gm BID PRN PO CONSTIPATION Last administered on 01/16/19 15:37; Admin Dose 17 GM; Start 01/06/19 at 13:00 IV Flush (NS 10 ml) 10 ml PRN PRN IV flush; Start 01/06/19 at 18:30 Bisacodyl (Dulcolax Supp) 10 mg DAILY PRN KS CONSTIPATION; Start 01/06/19 at 19:00 Albuterol/ Ipratropium (Duoneb) 3 ml Q4H RESP THERAPY PRN HHN SHORTNESS OF BREATH Last administered on 01/11/19 15:42; Admin Dose 3 ML; Start 01/07/19 at 20:00 IV Flush (NS 10 ml) 10 ml PRN PRN IV IV PROTOCOL; Start 01/12/19 at 18:00 Carvedilol (Coreg) 25 mg BID PO Last administered on 01/16/19 20:32; Admin Dose 25 MG; Start 01/16/19 at 09:00 Bumetanide (Bumex) 1 mg DAILY PO Last administered on 01/16/19 08:41; Admin Dose 1 MG; Start 01/16/19 at 09:00 Potassium Chloride (Klor-Con 20) 20 meq BID PO Last administered on 01/16/19 20:31; Admin Dose 20 MEQ; Start 01/16/19 at 09:00 Ketorolac Tromethamine (Toradol) 15 mg Q6H PRN IV PAIN Last administered on 01/17/19at 13:34; Admin Dose 15 MG; Start 01/16/19 at 16:30; Stop 01/19/19 at 16:29 Insulin Aspart (Novolog Insulin Pen) (Adult SC Insulin - Mild Algorithm)... Q4 SC Last administered on 01/17/19at 05:40; Admin Dose 1 UNIT; Start 01/17/19 at 05:00 Piperacillin Sod/ Tazobactam Sod 100 ml @ 25 mls/hr TID@02,10,18 IVPB Last administered on 01/17/19at 12:25; Admin Dose 25 MLS/HR; Start 01/17/19 at 10:00 Vancomycin HCl (Vanco Iv Per Pharmacy) VANCOMYCIN PER PHARMACY PER PROTOCOL XX ; Start 01/17/19 at 10:00 Vancomycin HCl 1.5 gm/Sodium Chloride 250 ml @ 83.333 mls/ hr ONCE@1200 IVPB Last administered on 01/17/19at 12:24; Admin Dose 83.333 MLS/HR; Start 01/17/19 a t 12:00; Stop 01/17/19 at 19:00 Vancomycin HCl 250 ml @ 100 mls/hr Q24H IVPB ; Start 01/18/19 at 12:00 Metoclopramide HCl (Reglan) 5 mg Q8H IV ; Start 01/17/19 at 18:00 Allergies: Coded Allergies: No Known Allergy (Unverified , 12/29/18) Past Surgical History Past Surgical Hx: other Social History Alcohol Use: none Smoking Status: Never smoker Drug Use: none Exam/Review of Systems Exam Vitals Vital Signs Date Temp Pulse Resp B/P (MAP) Pulse Ox O2 O2 Flow FiO2 Time Delivery Rate 01/17/19 99.0 90 22 111/54 95 Nasal 11:26 (73) Cannula 01/17/19 4.0 01:44 Intake and Output 01/16/19 01/16/19 01/17/19 1515:00 23:00 07:00 IntakeIntake Total 0 ml OutputOutput Total 450 ml BalanceBalance -450 ml Exam PHYSICAL EXAMINATION: GENERAL: Alert & oriented SKIN: No lesions HEAD: Normocephalic, atraumatic, no tenderness. EYES: Pupils equal reactive to light and accommodation, no discharge. EARS/NOSE AND THROAT: Ears normal, nose normal. NECK: Supple, no masses. CHEST: Inspection within normal limits. CARDIOVASCULAR: Heart: Regular rate and rhythm RESPIRATORY: Lungs clear to auscultation GASTROINTESTINAL AND LIVER: Abdomen: Soft, non tenderness, non-distended, no hernias, no masses, no organomegaly, no ascites, no guarding, no rebound tenderness, normoactive bowel sounds. Rectal: Deferred. EXTREMITIES: No cyanosis, clubbing or edema. Results Result Diagram: 01/17/19 0609 01/17/19 0608 Results 24hrs Laboratory Tests Test 01/16/19 17:56 01/16/19 20:28 01/17/19 01:26 01/17/19 05:31 Bedside Glucose 94 116 119 151 Test 01/17/19 06:08 01/17/19 06:09 01/17/19 08:58 Sodium Level 142 Potassium Level 4.0 Chloride Level 107 Carbon Dioxide Level 33 H Anion Gap 2 L Blood Urea Nitrogen 45 H Creatinine 1.09 H Est Glomerular Filtrat Rate mL/min Glucose Level 131 Calcium Level 8.1 L Phosphorus Level 2.9 Magnesium Level 1.9 White Blood Count 20.5 H Red Blood Count 3.09 L Hemoglobin 9.4 L Hematocrit 29.9 L Mean Corpuscular 96.8 Volume Mean Corpuscular 30.4 Hemoglobin Mean Corpuscular 31.4 L Hemoglobin Concent Red Cell 19.9 H Distribution Width Platelet Count 181 Mean Platelet Volume 10.1 Immature 0.800 H Granulocytes % Neutrophils % 89.9 H Lymphocytes % 6.4 L Monocytes % 2.2 Eosinophils % 0.5 Basophils % 0.2 Nucleated Red Blood 0.0 Cells % Immature 0.160 H Granulocytes # Neutrophils # 18.4 H Lymphocytes # 1.3 Monocytes # 0.4 Eosinophils # 0.1 Basophils # 0.0 Nucleated Red Blood 0.0 Cells # Bedside Glucose 115 Medications Medication Current Medications IV Flush (NS 3 ml) 3 ml PER PROTOCOL IV ; Start 12/28/18 at 04:30 Ondansetron HCl (Zofran Inj) 4 mg Q6H PRN IV NAUSEA/VOMITING Last administered on 01/17/19at 13:34; Admin Dose 4 MG; Start 12/28/18 at 04:30 Aspirin (Aspirin) 81 mg DAILY PO Last administered on 01/16/19at 08:41; Admin Dose 81 MG; Start 12/28/18 at 09:00 Nitroglycerin (Nitroglycerin (Sl Tab) 0.4 Mg) 1 tab Q5M PRN SL .CHEST PAIN Last administered on 01/10/19at 08:03; Admin Dose 1 TAB; Start 12/28/18 at 04:30 Miscellaneous Information 1 ea NOTE XX ; Start 12/28/18 at 05:00 Glucose (Glutose) 15 gm Q15M PRN PO DECREASED GLUCOSE; Start 12/28/18 at 05:00 Glucose (Glutose) 22.5 gm Q15M PRN PO DECREASED GLUCOSE; Start 12/28/18 at 05:00 Dextrose (D50w Syringe) 25 ml Q15M PRN IV DECREASED GLUCOSE; Start 12/28/18 at 05:00 Dextrose (D50w Syringe) 50 ml Q15M PRN IV DECREASED GLUCOSE; Start 12/28/18 at 05:00 Glucagon (Glucagen) 1 mg Q15M PRN IM DECREASED GLUCOSE; Start 12/28/18 at 05:00 Glucose (Glutose) 15 gm Q15M PRN BUCCAL DECREASED GLUCOSE; Start 12/28/18 at 05:00 Atorvastatin Calcium (Lipitor) 80 mg HS PO Last administered on 01/16/19at 20:32; Admin Dose 80 MG; Start 12/29/18 at 21:00 Phenol (Cepastat Lozenge) 1 lozenge Q1H PRN MT COUGH Last administered on 01/03/19at 13:05; Admin Dose 1 LOZENGE; Start 12/28/18 at 17:30 Escitalopram Oxalate (Lexapro) 10 mg DAILY PO Last administered on 01/16/19at 08:41; Admin Dose 10 MG; Start 12/29/18 at 09:30 Risedronate (Actonel) 35 mg Tu@AC BREAKFAST PO ; Start 12/30/18 at 07:00 Mirtazapine (Remeron) 15 mg HS PO Last administered on 01/16/19at 20:32; Admin Dose 15 MG; Start 12/29/18 at 21:00 Pantoprazole (Protonix Tab) 40 mg DAILY@06 PO Last administered on 01/17/19 05:29; Admin Dose 40 MG; Start 12/30/18 at 06:00 Docusate Sodium (Colace) 100 mg BID PO Last administered on 01/16/19 20:32; Admin Dose 100 MG; Start 12/29/18 at 18:30 Clopidogrel Bisulfate (plaVIX) 75 mg DAILY PO Last administered on 01/16/19 08:40; Admin Dose 75 MG; Start 01/03/19 at 09:00 Morphine Sulfate (morphine) 1 mg Q1H PRN IV SEVERE PAIN LEVEL 7-10 Last administered on 01/16/19 15:33; Admin Dose 1 MG; Start 01/04/19 at 16:00 Polyethylene Glycol (Miralax) 17 gm BID PRN PO CONSTIPATION Last administered on 01/16/19 15:37; Admin Dose 17 GM; Start 01/06/19 at 13:00 IV Flush (NS 10 ml) 10 ml PRN PRN IV flush; Start 01/06/19 at 18:30 Bisacodyl (Dulcolax Supp) 10 mg DAILY PRN KS CONSTIPATION; Start 01/06/19 at 19:00 Albuterol/ Ipratropium (Duoneb) 3 ml Q4H RESP THERAPY PRN HHN SHORTNESS OF BREATH Last administered on 01/11/19 15:42; Admin Dose 3 ML; Start 01/07/19 at 20:00 IV Flush (NS 10 ml) 10 ml PRN PRN IV IV PROTOCOL; Start 01/12/19 at 18:00 Carvedilol (Coreg) 25 mg BID PO Last administered on 01/16/19 20:32; Admin Dose 25 MG; Start 01/16/19 at 09:00 Bumetanide (Bumex) 1 mg DAILY PO Last administered on 01/16/19 08:41; Admin Dose 1 MG; Start 01/16/19 at 09:00 Potassium Chloride (Klor-Con 20) 20 meq BID PO Last administered on 01/16/19 20:31; Admin Dose 20 MEQ; Start 01/16/19 at 09:00 Ketorolac Tromethamine (Toradol) 15 mg Q6H PRN IV PAIN Last administered on 12/25 13:34; Admin Dose 15 MG; Start 01/16/19 at 16:30; Stop 01/19/19 at 16:29 Insulin Aspart (Novolog Insulin Pen) (Adult SC Insulin - Mild Algorithm)... Q4 SC Last administered on 5/25/19at 05:40; Admin Dose 1 UNIT; Start 01/17/19 at 05:00 Piperacillin Sod/ Tazobactam Sod 100 ml @ 25 mls/hr TID@02,10,18 IVPB Last administered on 01/17/19at 12:25; Admin Dose 25 MLS/HR; Start 01/17/19 at 10:00 Vancomycin HCl (Vanco Iv Per Pharmacy) VANCOMYCIN PER PHARMACY PER PROTOCOL XX ; Start 01/17/19 at 10:00 Vancomycin HCl 1.5 gm/Sodium Chloride 250 ml @ 83.333 mls/ hr ONCE@1200 IVPB Last administered on 01/17/19at 12:24; Admin Dose 83.333 MLS/HR; Start 01/17/19 at 12:00; Stop 01/17/19 at 19:00 Vancomycin HCl 250 ml @ 100 mls/hr Q24H IVPB ; Start 01/18/19 at 12:00 Metoclopramide HCl (Reglan) 5 mg Q8H IV ; Start 01/17/19 at 18:00 GARY PRIETO January 17, 2019 13:54
[2019-01-17] MEDS: DOCUSATE SODIUM 100 MG CAP PO SCH (15:21)
[2019-01-17] MEDS: BUMETANIDE 1 MG TAB PO SCH (15:22)
[2019-01-17] MEDS: ESCITALOPRAM 10 MG TAB PO SCH (15:22)
[2019-01-17] MEDS: ASPIRIN 81 MG TAB PO SCH (15:22)
[2019-01-17] MEDS: CLOPIDOGREL 75 MG TAB PO SCH (15:23)
[2019-01-17] MEDS ORDERED: METOCLOPRAMIDE 10 MG INJ IV SCH (18:00)
[2019-01-17] MEDS: METOCLOPRAMIDE 10 MG INJ IV SCH (18:43)
[2019-01-17] MEDS: ATORVASTATIN 80 MG TAB PO SCH (20:33)
[2019-01-17] MEDS: MIRTAZAPINE 15 MG TAB PO SCH (20:33)
[2019-01-18] VITALS (10 sets, daily range): BP systolic 89–114; BP diastolic 42–55; PULSE 77–97; RESP 18–20
[2019-01-18] MEDS: Insulin NOVOLOG SS MILD Algorithm (NPO/TPN/ENTERAL FEEDS) SC SCH ×6 (02:02→20:37)
[2019-01-18] MEDS: DOCUSATE SODIUM 10 MG/ML (10ML CUP) PO SCH ×3 (02:03→20:34)
[2019-01-18] MEDS: METOCLOPRAMIDE 10 MG INJ IV SCH ×3 (02:05→17:05)
[2019-01-18] MEDS: PIPER-TAZO 3.375 GM IV (PMX) 100 ML IVPB SCH ×3 (02:05→17:05)
[2019-01-18] MEDS: PANTOPRAZOLE (EC) 40 MG TAB PO SCH (05:43)
[2019-01-18] MEDS ORDERED: BUMETANIDE 0.5 MG TAB PO SCH (09:00)
[2019-01-18] MEDS: CLOPIDOGREL 75 MG TAB PO SCH (10:50)
[2019-01-18] MEDS: ESCITALOPRAM 10 MG TAB PO SCH (10:50)
[2019-01-18] MEDS: POTASSIUM CHLORIDE (SR) 20 MEQ TAB PO SCH ×2 (10:51→20:34)
[2019-01-18] MEDS: ASPIRIN 81 MG TAB PO SCH (10:51)
--- NOTE | 2019-01-18 11:10 | CONS ---
Assessment/Plan Assessment/Plan Assessment/Plan (Daily) Assessment and recommendations; 1. Patient admitted for CHF as well as dense right upper lobe pneumonia with persistent leukocytosis. Started back on Zosyn and vancomycin yesterday. 2. Possibly underlying lung mass. 3. Status post acute coronary intervention with PTCA. 4. Anemia. 5. Thrombocytopenia. 6. Chronic renal insufficiency. 7. Peripheral vascular disease. 8. History of diabetes and hypertension. Continue current supportive care. Obtain follow-up chest x-ray 24 hours. Patient may require a lung biopsy. Consultation Date/Type/Reason Admit Date/Time December 28, 2018 at 03:23 Initial Consult Date 01/12/19 Type of Consult Pulmonary Requesting Provider: KRYSTAL BERNARD Date/Time of Note DATE: 01/18/19 TIME: 11:08 24 HR Interval Summary Free Text/Dictation Patient's condition is tenuous. Still on supplemental oxygen. General exam; elderly lady, awake and alert. Currently no distress. Exam/Review of Systems Exam Vitals Vital Signs Date Temp Pulse Resp B/P (MAP) Pulse Ox O2 O2 Flow FiO2 Time Delivery Rate 01/18/19 80 08:20 01/18/19 98.2 18 103/55 96 Nasal 07:08 (71) Cannula 01/17/19 5.0 21:00 01/17/19 27 19:58 Intake and Output 01/17/19 01/17/19 01/18/19 1515:00 23:00 07:00 IntakeIntake Total 1275 ml OutputOutput Total 1250 ml BalanceBalance 25 ml Exam H EENT exam; supple neck, positive JVD. No lymphadenopathy. Midline trachea. No thyromegaly. Patient does have carious teeth. No neck masses. Chest exam; diminished breath sounds bilaterally. S1-S2 audible, no murmurs. Regular rhythm. Abdomen exam; soft, no organomegaly. Nontender. Bowel sounds audible. Extremity exam; trace edema. INVOICE CONTROL CLERK exam; no focal motor deficit. Results Result Diagram: 01/18/19 0612 01/18/19 0612 Results 24hrs Laboratory Tests Test 01/17/19 15:19 01/17/19 20:30 01/18/19 02:01 01/18/19 05:44 Bedside Glucose 164 113 124 115 Test 01/18/19 06:12 01/18/19 08:39 White Blood Count 21.3 H Red Blood Count 2.89 L Hemoglobin 8.8 L Hematocrit 28.8 L Mean Corpuscular 99.7 Volume Mean Corpuscular 30.4 Hemoglobin Mean Corpuscular 30.6 L Hemoglobin Concent Red Cell 19.9 H Distribution Width Platelet Count 145 Mean Platelet Volume 10.1 Immature 0.900 H Granulocytes % Neutrophils % 92.6 H Lymphocytes % 3.3 L Monocytes % 1.7 Eosinophils % 1.2 Basophils % 0.3 Nucleated Red Blood 0.0 Cells % Immature 0.190 H Granulocytes # Neutrophils # 19.7 H Lymphocytes # 0.7 L Monocytes # 0.4 Eosinophils # 0.3 Basophils # 0.1 Nucleated Red Blood 0.0 Cells # Sodium Level 141 Potassium Level 5.2 H Chloride Level 107 Carbon Dioxide Level 28 Anion Gap 6 Blood Urea Nitrogen 49 H Creatinine 1.55 H Est Glomerular Filtrat Rate mL/min Glucose Level 113 Calcium Level 7.9 L Bedside Glucose 107 Medications Medication Current Medications IV Flush (NS 3 ml) 3 ml PER PROTOCOL IV ; Start 12/28/18 at 04:30 Ondansetron HCl (Zofran Inj) 4 mg Q6H PRN IV NAUSEA/VOMITING Last administered on 01/17/19at 13:34; Admin Dose 4 MG; Start 12/28/18 at 04:30 Aspirin (Aspirin) 81 mg DAILY PO Last administered on 01/18/19at 10:51; Admin Dose 81 MG; Start 12/28/18 at 09:00 Nitroglycerin (Nitroglycerin (Sl Tab) 0.4 Mg) 1 tab Q5M PRN SL .CHEST PAIN Last administered on 01/10/19at 08:03; Admin Dose 1 TAB; Start 12/28/18 at 04:30 Miscellaneous Information 1 ea NOTE XX ; Start 12/28/18 at 05:00 Glucose (Glutose) 15 gm Q15M PRN PO DECREASED GLUCOSE; Start 12/28/18 at 05:00 Glucose (Glutose) 22.5 gm Q15M PRN PO DECREASED GLUCOSE; Start 12/28/18 at 05:00 Dextrose (D50w Syringe) 25 ml Q15M PRN IV DECREASED GLUCOSE; Start 12/28/18 at 05:00 Dextrose (D50w Syringe) 50 ml Q15M PRN IV DECREASED GLUCOSE; Start 12/28/18 at 05:00 Glucagon (Glucagen) 1 mg Q15M PRN IM DECREASED GLUCOSE; Start 12/28/18 at 05:00 Glucose (Glutose) 15 gm Q15M PRN BUCCAL DECREASED GLUCOSE; Start 12/28/18 at 05:00 Atorvastatin Calcium (Lipitor) 80 mg HS PO Last administered on 01/17/19 20:33; Admin Dose 80 MG; Start 12/29/18 at 21:00 Phenol (Cepastat Lozenge) 1 lozenge Q1H PRN MT COUGH Last administered on 01/03/19 13:05; Admin Dose 1 LOZENGE; Start 12/28/18 at 17:30 Escitalopram Oxalate (Lexapro) 10 mg DAILY PO Last administered on 01/18/19 10:50; Admin Dose 10 MG; Start 12/29/18 at 09:30 Risedronate (Actonel) 35 mg Tu@AC BREAKFAST PO ; Start 12/30/18 at 07:00 Mirtazapine (Remeron) 15 mg HS PO Last administered on 01/17/19 20:33; Admin Dose 15 MG; Start 12/29/18 at 21:00 Pantoprazole (Protonix Tab) 40 mg DAILY@06 PO Last administered on 01/18/19 05:43; Admin Dose 40 MG; Start 12/30/18 at 06:00 Clopidogrel Bisulfate (plaVIX) 75 mg DAILY PO Last administered on 01/18/19 10:50; Admin Dose 75 MG; Start 01/03/19 at 09:00 Morphine Sulfate (morphine) 1 mg Q1H PRN IV SEVERE PAIN LEVEL 7-10 Last administered on 01/16/19 15:33; Admin Dose 1 MG; Start 01/04/19 at 16:00 Polyethylene Glycol (Miralax) 17 gm BID PRN PO CONSTIPATION Last administered on 01/16/19 15:37; Admin Dose 17 GM; Start 01/06/19 at 13:00 IV Flush (NS 10 ml) 10 ml PRN PRN IV flush; Start 01/06/19 at 18:30 Bisacodyl (Dulcolax Supp) 10 mg DAILY PRN KS CONSTIPATION; Start 01/06/19 at 19:00 Albuterol/ Ipratropium (Duoneb) 3 ml Q4H RESP THERAPY PRN HHN SHORTNESS OF BREATH Last administered on 01/11/19 15:42; Admin Dose 3 ML; Start 01/07/19 at 20:00 IV Flush (NS 10 ml) 10 ml PRN PRN IV IV PROTOCOL; Start 01/12/19 at 18:00 Carvedilol (Coreg) 25 mg BID PO Last administered on 01/18/19 10:50; Admin Dose 25 MG; Start 01/16/19 at 09:00 Potassium Chloride (Klor-Con 20) 20 meq BID PO Last administered on 01/18/19 10:51; Admin Dose 20 MEQ; Start 01/16/19 at 09:00 Ketorolac Tromethamine (Toradol) 15 mg Q6H PRN IV PAIN Last administered on 01/17/19 13:34; Admin Dose 15 MG; Start 01/16/19 at 16:30; Stop 01/19/19 at 16:29 Insulin Aspart (Novolog Insulin Pen) (Adult SC Insulin - Mild Algorithm)... Q4 SC Last administered on 01/17/19 15:58; Admin Dose 1 UNIT; Start 01/17/19 at 05:00 Piperacillin Sod/ Tazobactam Sod 100 ml @ 25 mls/hr TID@02,10,18 IVPB Last administered on 01/18/19 02:05; Admin Dose 25 MLS/HR; Start 01/17/19 at 10:00 Vancomycin HCl (Vanco Iv Per Pharmacy) VANCOMYCIN PER PHARMACY PER PROTOCOL XX ; Start 01/17/19 at 10:00 Vancomycin HCl 250 ml @ 100 mls/hr Q24H IVPB ; Start 01/18/19 at 12:00 Metoclopramide HCl (Reglan) 10 mg Q8H IV Last administered on 01/18/19 10:52; Admin Dose 10 MG; Start 01/17/19 at 18:00 Docusate Sodium (Colace Liquid Cup) 100 mg BID PO Last administered on 01/18/19 10:49; Admin Dose 100 MG; Start 01/17/19 at 21:00 Bumetanide (Bumex) 0.5 mg DAILY PO Last administered on 01/18/19 10:51; Admin Dose 0.5 MG; Start 01/18/19 at 09:00 BARBARA HOOVER January 18, 2019 11:10
--- NOTE | 2019-01-18 13:51 | CONS ---
Assessment/Plan Assessment/Plan Assessment/Plan (Daily) 1. Acute kidney injury on CKD III 2/2 Hemodynamics from CHF + NSTEMI - worsening renal failure 2. Hypokalemia 3. Hypernatremia -improved to normal 4. acute NSTEMI s/p LHC showed multivessel obstructive CAD - s/p Successful PTCA and stenting of proximal left anterior descending artery using a 3 x 20 mm Synergy drug-eluting stent on 01/04/19- s/p LHC with proximal RCA stenting on 01/08/19 5. CAD multivessel obstructive 6. Anemia of Chronic disease s/p 2 U PRBC on 01/07/19 Plan: BUN/Cr improved to 49/1.55, K 5.2- change bumex to 1mg PO daily , d/c KCL Coreg increased to 25 mg pO BID< cardiology has been following will follow up Consultation Date/Type/Reason Admit Date/Time December 28, 2018 at 03:23 Initial Consult Date 12/28/18 Type of Consult NEPHROLOGY Requesting Provider: KRYSTAL BERNARD Date/Time of Note DATE: 01/18/19 TIME: 13:51 Exam/Review of Systems Exam Vitals Vital Signs Date Temp Pulse Resp B/P (MAP) Pulse Ox O2 O2 Flow FiO2 Time Delivery Rate 01/18/19 96 12:25 01/18/19 98.3 89/42 (58) 93 Nasal 11:46 Cannula 01/18/19 18 07:08 01/17/19 5.0 21:00 01/17/19 27 19:58 Intake and Output 01/17/19 01/17/19 01/18/19 1515:00 23:00 07:00 IntakeIntake Total 1275 ml OutputOutput Total 1250 ml BalanceBalance 25 ml Exam Constitutional: alert Eyes: nl conjunctiva Neck: supple, non-tender Respiratory: clear to auscultation, diminished breath sounds Cardiovascular: regular rate and rhythm, nl pulses Gastrointestinal: soft, non-tender Extremities: normal pulses Neurological: DIAMOND SORTER II-XII intact Results Result Diagram: 01/18/19 0612 01/18/19 0612 Results 24hrs Laboratory Tests Test 01/17/19 15:19 01/17/19 20:30 01/18/19 02:01 01/18/19 05:44 Bedside Glucose 164 113 124 115 Test 01/18/19 06:12 01/18/19 08:39 01/18/19 12:25 White Blood Count 21.3 H Red Blood Count 2.89 L Hemoglobin 8.8 L Hematocrit 28.8 L Mean Corpuscular 99.7 Volume Mean Corpuscular 30.4 Hemoglobin Mean Corpuscular 30.6 L Hemoglobin Concent Red Cell 19.9 H Distribution Width Platelet Count 145 Mean Platelet Volume 10.1 Immature 0.900 H Granulocytes % Neutrophils % 92.6 H Lymphocytes % 3.3 L Monocytes % 1.7 Eosinophils % 1.2 Basophils % 0.3 Nucleated Red Blood 0.0 Cells % Immature 0.190 H Granulocytes # Neutrophils # 19.7 H Lymphocytes # 0.7 L Monocytes # 0.4 Eosinophils # 0.3 Basophils # 0.1 Nucleated Red Blood 0.0 Cells # Sodium Level 141 Potassium Level 5.2 H Chloride Level 107 Carbon Dioxide Level 28 Anion Gap 6 Blood Urea Nitrogen 49 H Creatinine 1.55 H Est Glomerular Filtrat Rate mL/min Glucose Level 113 Calcium Level 7.9 L Bedside Glucose 107 126 Medications Medication Current Medications IV Flush (NS 3 ml) 3 ml PER PROTOCOL IV ; Start 12/28/18 at 04:30 Ondansetron HCl (Zofran Inj) 4 mg Q6H PRN IV NAUSEA/VOMITING Last administered on 01/17/19at 13:34; Admin Dose 4 MG; Start 12/28/18 at 04:30 Aspirin (Aspirin) 81 mg DAILY PO Last administered on 01/18/19at 10:51; Admin Dose 81 MG; Start 12/28/18 at 09:00 Nitroglycerin (Nitroglycerin (Sl Tab) 0.4 Mg) 1 tab Q5M PRN SL .CHEST PAIN Last administered on 01/10/19at 08:03; Admin Dose 1 TAB; Start 12/28/18 at 04:30 Miscellaneous Information 1 ea NOTE XX ; Start 12/28/18 at 05:00 Glucose (Glutose) 15 gm Q15M PRN PO DECREASED GLUCOSE; Start 12/28/18 at 05:00 Glucose (Glutose) 22.5 gm Q15M PRN PO DECREASED GLUCOSE; Start 12/28/18 at 05:00 Dextrose (D50w Syringe) 25 ml Q15M PRN IV DECREASED GLUCOSE; Start 12/28/18 at 05:00 Dextrose (D50w Syringe) 50 ml Q15M PRN IV DECREASED GLUCOSE; Start 12/28/18 at 05:00 Glucagon (Glucagen) 1 mg Q15M PRN IM DECREASED GLUCOSE; Start 12/28/18 at 05:00 Glucose (Glutose) 15 gm Q15M PRN BUCCAL DECREASED GLUCOSE; Start 12/28/18 at 05:00 Atorvastatin Calcium (Lipitor) 80 mg HS PO Last administered on 01/17/19 20:33; Admin Dose 80 MG; Start 12/29/18 at 21:00 Phenol (Cepastat Lozenge) 1 lozenge Q1H PRN MT COUGH Last administered on 01/03/19 13:05; Admin Dose 1 LOZENGE; Start 12/28/18 at 17:30 Escitalopram Oxalate (Lexapro) 10 mg DAILY PO Last administered on 01/18/19 10:50; Admin Dose 10 MG; Start 12/29/18 at 09:30 Risedronate (Actonel) 35 mg Tu@AC BREAKFAST PO ; Start 12/30/18 at 07:00 Mirtazapine (Remeron) 15 mg HS PO Last administered on 01/17/19 20:33; Admin Dose 15 MG; Start 12/29/18 at 21:00 Pantoprazole (Protonix Tab) 40 mg DAILY@06 PO Last administered on 01/18/19 05:43; Admin Dose 40 MG; Start 12/30/18 at 06:00 Clopidogrel Bisulfate (plaVIX) 75 mg DAILY PO Last administered on 01/18/19 10:50; Admin Dose 75 MG; Start 01/03/19 at 09:00 Morphine Sulfate (morphine) 1 mg Q1H PRN IV SEVERE PAIN LEVEL 7-10 Last administered on 01/16/19 15:33; Admin Dose 1 MG; Start 01/04/19 at 16:00 Polyethylene Glycol (Miralax) 17 gm BID PRN PO CONSTIPATION Last administered on 01/16/19 15:37; Admin Dose 17 GM; Start 01/06/19 at 13:00 IV Flush (NS 10 ml) 10 ml PRN PRN IV flush; Start 01/06/19 at 18:30 Bisacodyl (Dulcolax Supp) 10 mg DAILY PRN [place] CONSTIPATION; Start 01/06/19 at 19:00 Albuterol/ Ipratropium (Duoneb) 3 ml Q4H RESP THERAPY PRN HHN SHORTNESS OF BREATH Last administered on 01/11/19 15:42; Admin Dose 3 ML; Start 01/07/19 at 20:00 IV Flush (NS 10 ml) 10 ml PRN PRN IV IV PROTOCOL; Start 01/12/19 at 18:00 Carvedilol (Coreg) 25 mg BID PO Last administered on 01/18/19 10:50; Admin Dose 25 MG; Start 01/16/19 at 09:00 Potassium Chloride (Klor-Con 20) 20 meq BID PO Last administered on 01/18/19 10:51; Admin Dose 20 MEQ; Start 01/16/19 at 09:00 Ketorolac Tromethamine (Toradol) 15 mg Q6H PRN IV PAIN Last administered on 01/17/19 13:34; Admin Dose 15 MG; Start 01/16/19 at 16:30; Stop 01/19/19 at 16:29 Insulin Aspart (Novolog Insulin Pen) (Adult SC Insulin - Mild Algorithm)... Q4 SC Last administered on 01/17/19 15:58; Admin Dose 1 UNIT; Start 01/17/19 at 05:00 Piperacillin Sod/ Tazobactam Sod 100 ml @ 25 mls/hr TID@02,10,18 IVPB Last administered on 01/18/19 11:59; Admin Dose 25 MLS/HR; Start 01/17/19 at 10:00 Vancomycin HCl (Vanco Iv Per Pharmacy) VANCOMYCIN PER PHARMACY PER PROTOCOL XX ; Start 01/17/19 at 10:00 Vancomycin HCl 250 ml @ 100 mls/hr Q24H IVPB ; Start 01/18/19 at 12:00 Metoclopramide HCl (Reglan) 10 mg Q8H IV Last administered on 01/18/19 10:52; Admin Dose 10 MG; Start 01/17/19 at 18:00 Docusate Sodium (Colace Liquid Cup) 100 mg BID PO Last administered on 01/18/19 10:49; Admin Dose 100 MG; Start 01/17/19 at 21:00 Bumetanide (Bumex) 0.5 mg DAILY PO Last administered on 01/18/19 10:51; Admin Dose 0.5 MG; Start 01/18/19 at 09:00 PATTI CALLEJAS MD January 18, 2019 13:51
[2019-01-18] MEDS: VANCOMYCIN 1 GM (PMX) 250 ML IVPB SCH (13:56)
[2019-01-18] MEDS: KETOROLAC 15 MG INJ IV PRN (16:18)
--- NOTE | 2019-01-18 17:58 | PN ---
Date/Time of Note Date/Time of Note DATE: 01/18/19 TIME: 17:57 Assessment/Plan VTE Prophylaxis Risk score (from Ns)>0 risk: 6 SCD applied (from Nsg): Yes Pharmacological prophylaxis: other (scds) Lines/Catheters IV Catheter Type (from Nrsg): PICC Line Central line still needed: Yes (meds) Urinary Cath still in place: Yes Reason Cath still needed: other (indicate) (monitor output) Assessment/Plan Hospital Course Summary Assessment and Plan: Assessment: Abdominal pain/abdominal distention -CT abd/pelvis-Mild distension of the ascending and transverse colon with air-fluid levels. No evidence of bowel obstruction -KUB 01/14- Nonspecific bowel gas pattern with a few mildly distended air filled loops of small bowel. Leukocytosis Acute PR - S/p PCI to LAD (01/04) and RCA (01/08) Bilateral infiltrates, greatest in the right upper lobe CHF, with bilateral pleural effusion Bacteremia -Positive for coagulase-negative staph -Repeat blood cultures are negative Rash-2/2 to antibiotics- improved WILLIAM Acute on chronic encephalopathy -Patient with baseline dementia Diarrhea/loose stool -CDIFF- negative -Stool cx- coliform Plan: Continue PPI tx Reglan 10 mg Iv q8 hrs- currently no evidence of SBO- will continue Reglan NGT- LIS- blood tinge output noted- will monitor need for upper endoscopy- however will recommend only if needed- given hx of NSTEMI and PNA/Pleural effusion Monitor labs SBFT- to further assess for obstruction Patient seen in collaboration with Dr. Diaz Subjective: Course reviewed with nursing staff Patient interviewed and examined All labs, imaging and other results reviewed The patient is confused, spouse at bedside sledger used Patient appears to be in pain- just received pain medication Maintain close observation. Keep NGT in place to LIS PHYSICAL EXAMINATION: GENERAL: Alert & oriented - confused SKIN: No lesions HEAD: Normocephalic, atraumatic, no tenderness. EYES: Pupils equal reactive to light and accommodation, no discharge. EARS/NOSE AND THROAT: Ears normal, nose normal. NECK: Supple, no masses. CHEST: Inspection within normal limits. CARDIOVASCULAR: Heart: Regular rate and rhythm RESPIRATORY: Lungs clear to auscultation GASTROINTESTINAL AND LIVER: Abdomen: Soft, non tenderness, distended, no hernias, no masses, no organomegaly, no ascites, no guarding, no rebound tenderness, hypoactive bowel sounds. Rectal: Deferred. EXTREMITIES: No cyanosis, clubbing or edema. Result Diagram: 01/18/19 0612 01/18/19 0612 Results 24hrs Laboratory Tests Test 01/17/19 20:30 01/18/19 02:01 01/18/19 05:44 01/18/19 06:12 Bedside Glucose 113 124 115 White Blood Count 21.3 H Red Blood Count 2.89 L Hemoglobin 8.8 L Hematocrit 28.8 L Mean Corpuscular 99.7 Volume Mean Corpuscular 30.4 Hemoglobin Mean Corpuscular 30.6 L Hemoglobin Concent Red Cell 19.9 H Distribution Width Platelet Count 145 Mean Platelet Volume 10.1 Immature 0.900 H Granulocytes % Neutrophils % 92.6 H Lymphocytes % 3.3 L Monocytes % 1.7 Eosinophils % 1.2 Basophils % 0.3 Nucleated Red Blood 0.0 Cells % Immature 0.190 H Granulocytes # Neutrophils # 19.7 H Lymphocytes # 0.7 L Monocytes # 0.4 Eosinophils # 0.3 Basophils # 0.1 Nucleated Red Blood 0.0 Cells # Sodium Level 141 Potassium Level 5.2 H Chloride Level 107 Carbon Dioxide Level 28 Anion Gap 6 Blood Urea Nitrogen 49 H Creatinine 1.55 H Est Glomerular Filtrat Rate mL/min Glucose Level 113 Calcium Level 7.9 L Test 01/18/19 08:39 01/18/19 12:25 01/18/19 17:02 Bedside Glucose 107 126 124 Exam/Review of Systems Exam Vitals Vital Signs Date Temp Pulse Resp B/P (MAP) Pulse Ox O2 O2 Flow FiO2 Time Delivery Rate 01/18/19 95 16:58 01/18/19 98.3 89/42 (58) 93 Nasal 11:46 Cannula 01/18/19 5.0 08:25 01/18/19 18 07:08 01/17/19 27 19:58 Intake and Output 01/17/19 01/17/19 01/18/19 1515:00 23:00 07:00 IntakeIntake Total 1275 ml OutputOutput Total 1250 ml BalanceBalance 25 ml Results Results 24hrs Laboratory Tests Test 01/17/19 20:30 01/18/19 02:01 01/18/19 05:44 01/18/19 06:12 Bedside Glucose 113 124 115 White Blood Count 21.3 H Red Blood Count 2.89 L Hemoglobin 8.8 L Hematocrit 28.8 L Mean Corpuscular 99.7 Volume Mean Corpuscular 30.4 Hemoglobin Mean Corpuscular 30.6 L Hemoglobin Concent Red Cell 19.9 H Distribution Width Platelet Count 145 Mean Platelet Volume 10.1 Immature 0.900 H Granulocytes % Neutrophils % 92.6 H Lymphocytes % 3.3 L Monocytes % 1.7 Eosinophils % 1.2 Basophils % 0.3 Nucleated Red Blood 0.0 Cells % Immature 0.190 H Granulocytes # Neutrophils # 19.7 H Lymphocytes # 0.7 L Monocytes # 0.4 Eosinophils # 0.3 Basophils # 0.1 Nucleated Red Blood 0.0 Cells # Sodium Level 141 Potassium Level 5.2 H Chloride Level 107 Carbon Dioxide Level 28 Anion Gap 6 Blood Urea Nitrogen 49 H Creatinine 1.55 H Est Glomerular Filtrat Rate mL/min Glucose Level 113 Calcium Level 7.9 L Test 01/18/19 08:39 01/18/19 12:25 01/18/19 17:02 Bedside Glucose 107 126 124 Medications Medication Current Medications IV Flush (NS 3 ml) 3 ml PER PROTOCOL IV ; Start 12/28/18 at 04:30 Ondansetron HCl (Zofran Inj) 4 mg Q6H PRN IV NAUSEA/VOMITING Last administered on 01/17/19at 13:34; Admin Dose 4 MG; Start 12/28/18 at 04:30 Aspirin (Aspirin) 81 mg DAILY PO Last administered on 01/18/19at 10:51; Admin Dose 81 MG; Start 12/28/18 at 09:00 Nitroglycerin (Nitroglycerin (Sl Tab) 0.4 Mg) 1 tab Q5M PRN SL .CHEST PAIN Last administered on 01/10/19at 08:03; Admin Dose 1 TAB; Start 12/28/18 at 04:30 Miscellaneous Information 1 ea NOTE XX ; Start 12/28/18 at 05:00 Glucose (Glutose) 15 gm Q15M PRN PO DECREASED GLUCOSE; Start 12/28/18 at 05:00 Glucose (Glutose) 22.5 gm Q15M PRN PO DECREASED GLUCOSE; Start 12/28/18 at 05:00 Dextrose (D50w Syringe) 25 ml Q15M PRN IV DECREASED GLUCOSE; Start 12/28/18 at 05:00 Dextrose (D50w Syringe) 50 ml Q15M PRN IV DECREASED GLUCOSE; Start 12/28/18 at 05:00 Glucagon (Glucagen) 1 mg Q15M PRN IM DECREASED GLUCOSE; Start 12/28/18 at 05:00 Glucose (Glutose) 15 gm Q15M PRN BUCCAL DECREASED GLUCOSE; Start 12/28/18 at 05:00 Atorvastatin Calcium (Lipitor) 80 mg HS PO Last administered on 01/17/19 20:33; Admin Dose 80 MG; Start 12/29/18 at 21:00 Phenol (Cepastat Lozenge) 1 lozenge Q1H PRN [place] COUGH Last administered on 01/03/19 13:05; Admin Dose 1 LOZENGE; Start 12/28/18 at 17:30 Escitalopram Oxalate (Lexapro) 10 mg DAILY PO Last administered on 01/18/19 10:50; Admin Dose 10 MG; Start 12/29/18 at 09:30 Risedronate (Actonel) 35 mg Tu@AC BREAKFAST PO ; Start 12/30/18 at 07:00 Mirtazapine (Remeron) 15 mg HS PO Last administered on 01/17/19 20:33; Admin Dose 15 MG; Start 12/29/18 at 21:00 Pantoprazole (Protonix Tab) 40 mg DAILY@06 PO Last administered on 01/18/19 05:43; Admin Dose 40 MG; Start 12/30/18 at 06:00 Clopidogrel Bisulfate (plaVIX) 75 mg DAILY PO Last administered on 01/18/19 10:50; Admin Dose 75 MG; Start 01/03/19 at 09:00 Morphine Sulfate (morphine) 1 mg Q1H PRN IV SEVERE PAIN LEVEL 7-10 Last administered on 01/16/19 15:33; Admin Dose 1 MG; Start 01/04/19 at 16:00 Polyethylene Glycol (Miralax) 17 gm BID PRN PO CONSTIPATION Last administered on 01/16/19 15:37; Admin Dose 17 GM; Start 01/06/19 at 13:00 IV Flush (NS 10 ml) 10 ml PRN PRN IV flush; Start 01/06/19 at 18:30 Bisacodyl (Dulcolax Supp) 10 mg DAILY PRN [place] CONSTIPATION; Start 01/06/19 at 19:00 Albuterol/ Ipratropium (Duoneb) 3 ml Q4H RESP THERAPY PRN HHN SHORTNESS OF BREATH Last administered on 01/11/19 15:42; Admin Dose 3 ML; Start 01/07/19 at 20:00 IV Flush (NS 10 ml) 10 ml PRN PRN IV IV PROTOCOL; Start 01/12/19 at 18:00 Carvedilol (Coreg) 25 mg BID PO Last administered on 01/18/19 10:50; Admin Dose 25 MG; Start 01/16/19 at 09:00 Potassium Chloride (Klor-Con 20) 20 meq BID PO Last administered on 01/18/19 10:51; Admin Dose 20 MEQ; Start 01/16/19 at 09:00 Ketorolac Tromethamine (Toradol) 15 mg Q6H PRN IV PAIN Last administered on 16:18; Admin Dose 15 MG; Start 01/16/19 at 16:30; Stop 01/19/19 at 16:29 Insulin Aspart (Novolog Insulin Pen) (Adult SC Insulin - Mild Algorithm)... Q4 SC Last administered on 01/17/19 15:58; Admin Dose 1 UNIT; Start 01/17/19 at 05:00 Piperacillin Sod/ Tazobactam Sod 100 ml @ 25 mls/hr TID@02,10,18 IVPB Last administered on 01/18/19 17:05; Admin Dose 25 MLS/HR; Start 01/17/19 at 10:00 Vancomycin HCl (Vanco Iv Per Pharmacy) VANCOMYCIN PER PHARMACY PER PROTOCOL XX ; Start 01/17/19 at 10:00 Vancomycin HCl 250 ml @ 100 mls/hr Q24H IVPB Last administered on 01/18/19 13:56; Admin Dose 100 MLS/HR; Start 01/18/19 at 12:00 Metoclopramide HCl (Reglan) 10 mg Q8H IV Last administered on 01/18/19 17:05; Admin Dose 10 MG; Start 01/17/19 at 18:00 Docusate Sodium (Colace Liquid Cup) 100 mg BID PO Last administered on 01/18/19 10:49; Admin Dose 100 MG; Start 01/17/19 at 21:00 Bumetanide (Bumex) 0.5 mg DAILY PO Last administered on 01/18/19at 10:51; Admin Dose 0.5 MG; Start 01/18/19 at 09:00 GARY PRIETO January 18, 2019 17:58
[2019-01-18] MEDS: morphine 2 MG INJ IV PRN ×2 (18:05→20:33)
--- NOTE | 2019-01-18 18:48 | PN ---
Date/Time of Note Date/Time of Note DATE: 01/18/19 TIME: 18:43 Assessment/Plan VTE Prophylaxis Risk score (from [facility])>0 risk: 6 SCD applied (from [facility]): Yes Pharmacological prophylaxis: NA/contraindicated Pharm contraindication: renal impairment Assessment/Plan Hospital Course 83 yo Samoan-speaking woman with history of dementia, hypertension, dyslipidemia, severe MR and aortic stenosis, arrhythmia who presents with ACS and multi-vessel coronary artery disease. #Acute TX - STEMI with LBBB - patient had cardiac cath on 12/28, found with: Severe 2 vessel CAD, LAD and RCA, LAD is culprit with francine 2 flow, and cardiomyopathy with LVEF 35%. Again patient also with severe aortic regurgitation and at least moderate mitral regurgitation. 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 -Short course of antibiotics given due to drug rash -Repeat blood cultures are negative #Rash-improved - Erythematous, macular rash on lower abdomen and part of chest noted 01/07 - May be related to transfusion, or drug reaction. - Got decadon, benadryl, pepcid without significant improvement but has not im proved #WILLIAM: Patient was having poor urine output but renal function has improved and urine output has increased -Status post Bumex drip and now transitioned to scheduled Bumex, Bumex decreased to 0.5 mg daily due to rise in creatinine -Nephrology following -No CRISTINO or ARB at this time #Acute on chronic encephalopathy -Patient with baseline dementia but mentation has worsened likely secondary to delirium #Abdominal pain secondary to mild ileus and abdominal distention -KUB does show few mildly distended air filled loops of small bowel -Abdominal ultrasound shows a large echogenic lesion in the upper abdomen may represent fluid distended stomach versus mass, Recommend CT scan for further evaluation -CT abdomen showed only a distended abdomen, no masses noted, no SBO -Repleted potassium as hypokalemia may have been contributing to ileus -NG tube placed due to severely distended stomach but distention persists, NG tube in appropriate position, thick gastric aspirate noted -Started Reglan IV scheduled -GI consultation appreciated -Repeat KUB in a.m. Prophylaxis: SCDs DC planning: Patient has been refusing discharge to [facility], patient has been accepted at a rehab facility, patient is not stable for DC to [facility] due to abdominal distention Result Diagram: 01/18/1912 01/18/19 0612 Results 24hrs Laboratory Tests Test 01/17/19 20:30 01/18/19 02:01 01/18/19 05:44 01/18/19 06:12 Bedside Glucose 113 124 115 White Blood Count 21.3 H Red Blood Count 2.89 L Hemoglobin 8.8 L Hematocrit 28.8 L Mean Corpuscular 99.7 Volume Mean Corpuscular 30.4 Hemoglobin Mean Corpuscular 30.6 L Hemoglobin Concent Red Cell 19.9 H Distribution Width Platelet Count 145 Mean Platelet Volume 10.1 Immature 0.900 H Granulocytes % Neutrophils % 92.6 H Lymphocytes % 3.3 L Monocytes % 1.7 Eosinophils % 1.2 Basophils % 0.3 Nucleated Red Blood 0.0 Cells % Immature 0.190 H Granulocytes # Neutrophils # 19.7 H Lymphocytes # 0.7 L Monocytes # 0.4 Eosinophils # 0.3 Basophils # 0.1 Nucleated Red Blood 0.0 Cells # Sodium Level 141 Potassium Level 5.2 H Chloride Level 107 Carbon Dioxide Level 28 Anion Gap 6 Blood Urea Nitrogen 49 H Creatinine 1.55 H Est Glomerular Filtrat Rate mL/min Glucose Level 113 Calcium Level 7.9 L Test 01/18/19 08:39 01/18/19 12:25 01/18/19 17:02 Bedside Glucose 107 126 124 Subjective 24 Hr Interval Summary Constitutional: disoriented Gastrointestinal: pain, constipation Exam/Review of Systems Exam Vitals Vital Signs Date Temp Pulse Resp B/P (MAP) Pulse Ox O2 O2 Flow FiO2 Time Delivery Rate 01/18/19 95 16:58 01/18/19 98.3 89/42 (58) 93 Nasal 11:46 Cannula 01/18/19 5.0 08:25 01/18/19 18 07:08 01/17/19 27 19:58 Intake and Output 01/17/19 01/17/19 01/18/19 1515:00 23:00 07:00 IntakeIntake Total 1275 ml OutputOutput Total 1250 ml BalanceBalance 25 ml Constitutional: alert Respiratory: clear to auscultation Cardiovascular: regular rate and rhythm Gastrointestinal: soft; No distended Musculoskeletal: nl extremities to inspection Results Results 24hrs Laboratory Tests Test 01/17/19 20:30 01/18/19 02:01 01/18/19 05:44 01/18/19 06:12 Bedside Glucose 113 124 115 White Blood Count 21.3 H Red Blood Count 2.89 L Hemoglobin 8.8 L Hematocrit 28.8 L Mean Corpuscular 99.7 Volume Mean Corpuscular 30.4 Hemoglobin Mean Corpuscular 30.6 L Hemoglobin Concent Red Cell 19.9 H Distribution Width Platelet Count 145 Mean Platelet Volume 10.1 Immature 0.900 H Granulocytes % Neutrophils % 92.6 H Lymphocytes % 3.3 L Monocytes % 1.7 Eosinophils % 1.2 Basophils % 0.3 Nucleated Red Blood 0.0 Cells % Immature 0.190 H Granulocytes # Neutrophils # 19.7 H Lymphocytes # 0.7 L Monocytes # 0.4 Eosinophils # 0.3 Basophils # 0.1 Nucleated Red Blood 0.0 Cells # Sodium Level 141 Potassium Level 5.2 H Chloride Level 107 Carbon Dioxide Level 28 Anion Gap 6 Blood Urea Nitrogen 49 H Creatinine 1.55 H Est Glomerular Filtrat Rate mL/min Glucose Level 113 Calcium Level 7.9 L Test 01/18/19 08:39 01/18/19 12:25 01/18/19 17:02 Bedside Glucose 107 126 124 Medications Medication Current Medications IV Flush (NS 3 ml) 3 ml PER PROTOCOL IV ; Start 12/28/18 at 04:30 Ondansetron HCl (Zofran Inj) 4 mg Q6H PRN IV NAUSEA/VOMITING Last administered on 01/17/19at 13:34; Admin Dose 4 MG; Start 12/28/18 at 04:30 Aspirin (Aspirin) 81 mg DAILY PO Last administered on 01/18/19at 10:51; Admin Dose 81 MG; Start 12/28/18 at 09:00 Nitroglycerin (Nitroglycerin (Sl Tab) 0.4 Mg) 1 tab Q5M PRN SL .CHEST PAIN Last administered on 01/10/19at 08:03; Admin Dose 1 TAB; Start 12/28/18 at 04:30 Miscellaneous Information 1 ea NOTE XX ; Start 12/28/18 at 05:00 Glucose (Glutose) 15 gm Q15M PRN PO DECREASED GLUCOSE; Start 12/28/18 at 05:00 Glucose (Glutose) 22.5 gm Q15M PRN PO DECREASED GLUCOSE; Start 12/28/18 at 05:00 Dextrose (D50w Syringe) 25 ml Q15M PRN IV DECREASED GLUCOSE; Start 12/28/18 at 05:00 Dextrose (D50w Syringe) 50 ml Q15M PRN IV DECREASED GLUCOSE; Start 12/28/18 at 05:00 Glucagon (Glucagen) 1 mg Q15M PRN IM DECREASED GLUCOSE; Start 12/28/18 at 05:00 Glucose (Glutose) 15 gm Q15M PRN BUCCAL DECREASED GLUCOSE; Start 12/28/18 at 05:00 Atorvastatin Calcium (Lipitor) 80 mg HS PO Last administered on 01/17/19at 20:33; Admin Dose 80 MG; Start 12/29/18 at 21:00 Phenol (Cepastat Lozenge) 1 lozenge Q1H PRN MT COUGH Last administered on 01/03/19at 13:05; Admin Dose 1 LOZENGE; Start 12/28/18 at 17:30 Escitalopram Oxalate (Lexapro) 10 mg DAILY PO Last administered on 01/18/19at 10:50; Admin Dose 10 MG; Start 12/29/18 at 09:30 Risedronate (Actonel) 35 mg Tu@AC BREAKFAST PO ; Start 12/30/18 at 07:00 Mirtazapine (Remeron) 15 mg HS PO Last administered on 01/17/19at 20:33; Admin Dose 15 MG; Start 12/29/18 at 21:00 Pantoprazole (Protonix Tab) 40 mg DAILY@06 PO Last administered on 01/18/19at 05:43; Admin Dose 40 MG; Start 12/30/18 at 06:00 Clopidogrel Bisulfate (plaVIX) 75 mg DAILY PO Last administered on 01/18/19at 10:50; Admin Dose 75 MG; Start 01/03/19 at 09:00 Morphine Sulfate (morphine) 1 mg Q1H PRN IV SEVERE PAIN LEVEL 7-10 Last administered on 01/18/19 18:05; Admin Dose 1 MG; Start 01/04/19 at 16:00 Polyethylene Glycol (Miralax) 17 gm BID PRN PO CONSTIPATION Last administered on 01/16/19at 15:37; Admin Dose 17 GM; Start 01/06/19 at 13:00 IV Flush (NS 10 ml) 10 ml PRN PRN IV flush; Start 01/06/19 at 18:30 Bisacodyl (Dulcolax Supp) 10 mg DAILY PRN RI CONSTIPATION; Start 01/06/19 at 19:00 Albuterol/ Ipratropium (Duoneb) 3 ml Q4H RESP THERAPY PRN HHN SHORTNESS OF BREATH Last administered on 01/11/19at 15:42; Admin Dose 3 ML; Start 01/07/19 at 20:00 IV Flush (NS 10 ml) 10 ml PRN PRN IV IV PROTOCOL; Start 01/12/19 at 18:00 Carvedilol (Coreg) 25 mg BID PO Last administered on 01/18/19 10:50; Admin Dose 25 MG; Start 01/16/19 at 09:00 Potassium Chloride (Klor-Con 20) 20 meq BID PO Last administered on 01/18/19 10:51; Admin Dose 20 MEQ; Start 01/16/19 at 09:00 Ketorolac Tromethamine (Toradol) 15 mg Q6H PRN IV PAIN Last administered on 01/18/19 16:18; Admin Dose 15 MG; Start 01/16/19 at 16:30; Stop 01/19/19 at 16:29 Insulin Aspart (Novolog Insulin Pen) (Adult SC Insulin - Mild Algorithm)... Q4 SC Last administered on 01/17/19at 15:58; Admin Dose 1 UNIT; Start 01/17/19 at 05:00 Piperacillin Sod/ Tazobactam Sod 100 ml @ 25 mls/hr TID@02,10,18 IVPB Last administered on 01/18/19 17:05; Admin Dose 25 MLS/HR; Start 01/17/19 at 10:00 Vancomycin HCl (Vanco Iv Per Pharmacy) VANCOMYCIN PER PHARMACY PER PROTOCOL XX ; Start 01/17/19 at 10:00 Vancomycin HCl 250 ml @ 100 mls/hr Q24H IVPB Last administered on 01/18/19at 13:56; Admin Dose 100 MLS/HR; Start 01/18/19 at 12:00 Metoclopramide HCl (Reglan) 10 mg Q8H IV Last administered on 01/18/19at 17:05; Admin Dose 10 MG; Start 01/17/19 at 18:00 Docusate Sodium (Colace Liquid Cup) 100 mg BID PO Last administered on 01/18/19at 10:49; Admin Dose 100 MG; Start 01/17/19 at 21:00 Bumetanide (Bumex) 0.5 mg DAILY PO Last administered on 01/18/19at 10:51; Admin Dose 0.5 MG; Start 01/18/19 at 09:00 DELORIS EVANGELISTA January 18, 2019 18:48
[2019-01-18] MEDS: ATORVASTATIN 80 MG TAB PO SCH (20:33)
[2019-01-18] MEDS: MIRTAZAPINE 15 MG TAB PO SCH (20:33)
[2019-01-19] VITALS (12 sets, daily range): BP systolic 101–120; BP diastolic 39–55; PULSE 78–96; RESP 18–22
[2019-01-19] MEDS: Insulin NOVOLOG SS MILD Algorithm (NPO/TPN/ENTERAL FEEDS) SC SCH ×6 (00:48→21:00)
[2019-01-19] MEDS: morphine 2 MG INJ IV PRN (02:01)
[2019-01-19] MEDS: METOCLOPRAMIDE 10 MG INJ IV SCH ×2 (02:03→09:06)
[2019-01-19] MEDS: PIPER-TAZO 3.375 GM IV (PMX) 100 ML IVPB SCH ×3 (02:03→18:42)
[2019-01-19] MEDS ORDERED: PANTOPRAZOLE 40 MG INJ IV SCH (06:00)
[2019-01-19] MEDS: ASPIRIN 81 MG TAB PO SCH (09:06)
[2019-01-19] MEDS: BUMETANIDE 1 MG TAB PO SCH (09:06)
[2019-01-19] MEDS: CLOPIDOGREL 75 MG TAB PO SCH (09:06)
[2019-01-19] MEDS: KETOROLAC 15 MG INJ IV PRN (09:06)
[2019-01-19] MEDS: FAMOTIDINE 20 MG INJ IV SCH (09:06)
[2019-01-19] MEDS: ESCITALOPRAM 10 MG TAB PO SCH (09:06)
[2019-01-19] MEDS: DOCUSATE SODIUM 10 MG/ML (10ML CUP) PO SCH (09:06)
--- NOTE | 2019-01-19 11:04 | CONS ---
Consult Date/Type/Reason Admit Date/Time December 28, 2018 at 03:23 Initial Consult Date 01/03/19 Type of Consult Pulmonary Requesting Provider: KRYSTAL BERNARD Date/Time of Note DATE: 01/19/19 TIME: 11:02 Subjective Abdominal x-ray shows no evidence of bowel obstruction. Objective Vital Signs Date Temp Pulse Resp B/P (MAP) Pulse Ox O2 O2 Flow FiO2 Time Delivery Rate 01/19/19 90 08:00 01/19/19 98.8 20 114/53 91 Nasal 07:00 (73) Cannula 01/19/19 2.0 27 02:25 Intake and Output 01/18/19 01/18/19 01/19/19 1515:00 23:00 07:00 IntakeIntake Total 300 ml 250 ml OutputOutput Total 400 ml 700 ml 175 ml BalanceBalance -100 ml -450 ml -175 ml Exam GENERAL: Elderly lady comfortable at rest no acute distress nasogastric tube in place VITAL SIGNS: per chart NECK: Supple. No JVD or lymphadenopathy. CARDIAC EXAM: S1, S2. No added sounds or murmurs. CHEST: clear bilaterally, No added sounds, rales or wheezes ABDOMEN: Soft, nontender. No guarding or rebound. EXTREMITIES: No cyanosis, clubbing or edema. NEUROLOGIC: Generalized weakness. No focal deficits. Vent Setting Fraction of Inspired Oxygen pe: 27 Results/Medications Result Diagram: 01/19/19 0615 01/19/19 0615 Results 24 hrs Laboratory Tests Test 01/18/19 12:25 01/18/19 17:02 01/18/19 20:37 01/19/19 00:47 Bedside Glucose 126 124 123 102 Test 01/19/19 05:20 01/19/19 06:15 01/19/19 08:01 Bedside Glucose 109 111 White Blood Count 18.1 H Red Blood Count 2.84 L Hemoglobin 8.6 L Hematocrit 28.9 L Mean Corpuscular 101.8 H Volume Mean Corpuscular 30.3 Hemoglobin Mean Corpuscular 29.8 L Hemoglobin Concent Red Cell 19.8 H Distribution Width Platelet Count 140 Mean Platelet Volume 10.4 Immature 0.900 H Granulocytes % Neutrophils % 93.3 H Lymphocytes % 2.9 L Monocytes % 1.9 Eosinophils % 0.7 Basophils % 0.3 Nucleated Red Blood 0.0 Cells % Immature 0.160 H Granulocytes # Neutrophils # 16.9 H Lymphocytes # 0.5 L Monocytes # 0.3 Eosinophils # 0.1 Basophils # 0.1 Nucleated Red Blood 0.0 Cells # Sodium Level 142 Potassium Level 5.9 H Chloride Level 108 Carbon Dioxide Level 26 Anion Gap 8 Blood Urea Nitrogen 53 H Creatinine 2.33 H Est Glomerular Filtrat Rate mL/min Glucose Level 107 Calcium Level 7.8 L Magnesium Level 1.9 Medications Current Medications IV Flush (NS 3 ml) 3 ml PER PROTOCOL IV ; Start 12/28/18 at 04:30 Ondansetron HCl (Zofran Inj) 4 mg Q6H PRN IV NAUSEA/VOMITING Last administered on 01/17/19at 13:34; Admin Dose 4 MG; Start 12/28/18 at 04:30 Aspirin (Aspirin) 81 mg DAILY PO Last administered on 01/19/19at 09:06; Admin Dose 81 MG; Start 12/28/18 at 09:00 Nitroglycerin (Nitroglycerin (Sl Tab) 0.4 Mg) 1 tab Q5M PRN SL .CHEST PAIN Last administered on 01/10/19at 08:03; Admin Dose 1 TAB; Start 12/28/18 at 04:30 Miscellaneous Information 1 ea NOTE XX ; Start 12/28/18 at 05:00 Glucose (Glutose) 15 gm Q15M PRN PO DECREASED GLUCOSE; Start 12/28/18 at 05:00 Glucose (Glutose) 22.5 gm Q15M PRN PO DECREASED GLUCOSE; Start 12/28/18 at 05:00 Dextrose (D50w Syringe) 25 ml Q15M PRN IV DECREASED GLUCOSE; Start 12/28/18 at 05:00 Dextrose (D50w Syringe) 50 ml Q15M PRN IV DECREASED GLUCOSE; Start 12/28/18 at 05:00 Glucagon (Glucagen) 1 mg Q15M PRN IM DECREASED GLUCOSE; Start 12/28/18 at 05:00 Glucose (Glutose) 15 gm Q15M PRN BUCCAL DECREASED GLUCOSE; Start 12/28/18 at 05:00 Atorvastatin Calcium (Lipitor) 80 mg HS PO Last administered on 01/18/19at 20:33; Admin Dose 80 MG; Start 12/29/18 at 21:00 Phenol (Cepastat Lozenge) 1 lozenge Q1H PRN MT COUGH Last administered on 01/03/19 13:05; Admin Dose 1 LOZENGE; Start 12/28/18 at 17:30 Escitalopram Oxalate (Lexapro) 10 mg DAILY PO Last administered on 01/19/19 09:06; Admin Dose 10 MG; Start 12/29/18 at 09:30 Risedronate (Actonel) 35 mg Tu@AC BREAKFAST PO ; Start 12/30/18 at 07:00 Mirtazapine (Remeron) 15 mg HS PO Last administered on 01/18/19 20:33; Admin Dose 15 MG; Start 12/29/18 at 21:00 Clopidogrel Bisulfate (plaVIX) 75 mg DAILY PO Last administered on 01/19/19 09:06; Admin Dose 75 MG; Start 01/03/19 at 09:00 Morphine Sulfate (morphine) 1 mg Q1H PRN IV SEVERE PAIN LEVEL 7-10 Last administered on 01/19/19 02:01; Admin Dose 1 MG; Start 01/04/19 at 16:00 Polyethylene Glycol (Miralax) 17 gm BID PRN PO CONSTIPATION Last administered on 01/16/19 15:37; Admin Dose 17 GM; Start 01/06/19 at 13:00 IV Flush (NS 10 ml) 10 ml PRN PRN IV flush; Start 01/06/19 at 18:30 Bisacodyl (Dulcolax Supp) 10 mg DAILY PRN [place] CONSTIPATION; Start 01/06/19 at 19:00 Albuterol/ Ipratropium (Duoneb) 3 ml Q4H RESP THERAPY PRN HHN SHORTNESS OF BREATH Last administered on 01/11/19 15:42; Admin Dose 3 ML; Start 01/07/19 at 20:00 IV Flush (NS 10 ml) 10 ml PRN PRN IV IV PROTOCOL; Start 01/12/19 at 18:00 Carvedilol (Coreg) 25 mg BID PO Last administered on 01/19/19 09:07; Admin Dose 25 MG; Start 01/16/19 at 09:00 Ketorolac Tromethamine (Toradol) 15 mg Q6H PRN IV PAIN Last administered on 01/19/19 09:06; Admin Dose 15 MG; Start 01/16/19 at 16:30; Stop 01/19/19 at 16:29 Insulin Aspart (Novolog Insulin Pen) (Adult SC Insulin - Mild Algorithm)... Q4 SC Last administered on 01/17/19at 15:58; Admin Dose 1 UNIT; Start 01/17/19 at 05:00 Piperacillin Sod/ Tazobactam Sod 100 ml @ 25 mls/hr TID@02,10,18 IVPB Last administered on 01/19/19at 02:03; Admin Dose 25 MLS/HR; Start 01/17/19 at 10:00 Vancomycin HCl (Vanco Iv Per Pharmacy) VANCOMYCIN PER PHARMACY PER PROTOCOL XX ; Start 01/17/19 at 10:00 Vancomycin HCl 250 ml @ 100 mls/hr Q24H IVPB Last administered on 01/18/19at 13:56; Admin Dose 100 MLS/HR; Start 01/18/19 at 12:00 Metoclopramide HCl (Reglan) 10 mg Q8H IV Last administered on 01/19/19at 09:06; Admin Dose 10 MG; Start 01/17/19 at 18:00 Docusate Sodium (Colace Liquid Cup) 100 mg BID PO Last administered on 9at 09:06; Admin Dose 100 MG; Start 01/17/19 at 21:00 Famotidine (Pepcid Iv) 20 mg DAILY IV Last administered on 01/19/19at 09:06; Admin Dose 20 MG; Start 01/19/19 at 09:00 Bumetanide (Bumex) 1 mg DAILY PO Last administered on 01/19/19at 09:06; Admin Dose 1 MG; Start 01/19/19 at 09:00 Assessment/Plan Hospital Course (Demo Recall) IMP: 1. s/p Acute NE--status post stent placements. 2. CHF ongoing pulmonary edema 3. Hypercapnic Resp Insufficiency 4. Acute on chronic kidney injury appears to be resolving. Likely contrast nephropathy. 5. Status post small bowel obstruction. Not evident on KUB this morning. Bowel sounds present abdomen soft to palpation Plan 1. Continue renal recommendations 2. Continue antibiotics 3. Aspiration precautions 4. Physical therapy as tolerated 5. Continue tube feeding. Discussed with GI. Discharge planning. TONE REID MD, FCCP January 19, 2019 11:03
[2019-01-19] MEDS: VANCOMYCIN 1 GM (PMX) 250 ML IVPB SCH (11:57)
--- NOTE | 2019-01-19 12:00 | CONS ---
Assessment/Plan Assessment/Plan Assessment/Plan (Daily) 1. Acute kidney injury on CKD III 2/2 Hemodynamics from CHF + NSTEMI - worsening renal failure 2. Hyperkalemia 3. Hypernatremia -improved to normal 4. acute NSTEMI s/p LHC showed multivessel obstructive CAD - s/p Successful PTCA and stenting of proximal left anterior descending artery using a 3 x 20 mm Synergy drug-eluting stent on 01/04/19- s/p LHC with proximal RCA stenting on 01/08/19 5. CAD multivessel obstructive 6. Anemia of Chronic disease s/p 2 U PRBC on 01/07/19 Plan: BUN/Cr went upto 53/2.33, K 5.9- Kayexalate 15 gram PO x 1 has been ordered , vancomycin stopped today, IV abx zosyn, Renally dose all abx and monitor electrolytes Coreg 25 mg bID, ASA, plavix, Lipitor will follow up Consultation Date/Type/Reason Admit Date/Time December 28, 2018 at 03:23 Initial Consult Date 12/28/18 Type of Consult NEPHROLOGY Requesting Provider: KRYSTAL BERNARD Date/Time of Note DATE: 01/19/19 TIME: 12:00 Exam/Review of Systems Exam Vitals Vital Signs Date Temp Pulse Resp B/P (MAP) Pulse Ox O2 O2 Flow FiO2 Time Delivery Rate 01/19/19 Nasal 5.0 08:02 Cannula 01/19/19 90 08:00 01/19/19 98.8 20 114/53 91 07:00 (73) 01/19/19 27 02:25 Intake and Output 01/18/19 01/18/19 01/19/19 1515:00 23:00 07:00 IntakeIntake Total 300 ml 250 ml OutputOutput Total 400 ml 700 ml 175 ml BalanceBalance -100 ml -450 ml -175 ml Exam Constitutional: alert Eyes: nl conjunctiva Neck: supple, non-tender Respiratory: clear to auscultation, diminished breath sounds Cardiovascular: regular rate and rhythm, nl pulses Gastrointestinal: soft, non-tender Extremities: normal pulses Neurological: EMAIL MANAGER II-XII intact Results Result Diagram: 01/19/19 0615 01/19/19 0615 Results 24hrs Laboratory Tests Test 01/18/19 12:25 01/18/19 17:02 01/18/19 20:37 01/19/19 00:47 Bedside Glucose 126 124 123 102 Test 01/19/19 05:20 01/19/19 06:15 01/19/19 08:01 Bedside Glucose 109 111 White Blood Count 18.1 H Red Blood Count 2.84 L Hemoglobin 8.6 L Hematocrit 28.9 L Mean Corpuscular 101.8 H Volume Mean Corpuscular 30.3 Hemoglobin Mean Corpuscular 29.8 L Hemoglobin Concent Red Cell 19.8 H Distribution Width Platelet Count 140 Mean Platelet Volume 10.4 Immature 0.900 H Granulocytes % Neutrophils % 93.3 H Lymphocytes % 2.9 L Monocytes % 1.9 Eosinophils % 0.7 Basophils % 0.3 Nucleated Red Blood 0.0 Cells % Immature 0.160 H Granulocytes # Neutrophils # 16.9 H Lymphocytes # 0.5 L Monocytes # 0.3 Eosinophils # 0.1 Basophils # 0.1 Nucleated Red Blood 0.0 Cells # Sodium Level 142 Potassium Level 5.9 H Chloride Level 108 Carbon Dioxide Level 26 Anion Gap 8 Blood Urea Nitrogen 53 H Creatinine 2.33 H Est Glomerular Filtrat Rate mL/min Glucose Level 107 Calcium Level 7.8 L Magnesium Level 1.9 Medications Medication Current Medications IV Flush (NS 3 ml) 3 ml PER PROTOCOL IV ; Start 12/28/18 at 04:30 Ondansetron HCl (Zofran Inj) 4 mg Q6H PRN IV NAUSEA/VOMITING Last administered on 01/17/19at 13:34; Admin Dose 4 MG; Start 12/28/18 at 04:30 Aspirin (Aspirin) 81 mg DAILY PO Last administered on 01/19/19at 09:06; Admin Dose 81 MG; Start 12/28/18 at 09:00 Nitroglycerin (Nitroglycerin (Sl Tab) 0.4 Mg) 1 tab Q5M PRN SL .CHEST PAIN Last administered on 01/10/19at 08:03; Admin Dose 1 TAB; Start 12/28/18 at 04:30 Miscellaneous Information 1 ea NOTE XX ; Start 12/28/18 at 05:00 Glucose (Glutose) 15 gm Q15M PRN PO DECREASED GLUCOSE; Start 12/28/18 at 05:00 Glucose (Glutose) 22.5 gm Q15M PRN PO DECREASED GLUCOSE; Start 12/28/18 at 05:00 Dextrose (D50w Syringe) 25 ml Q15M PRN IV DECREASED GLUCOSE; Start 12/28/18 at 05:00 Dextrose (D50w Syringe) 50 ml Q15M PRN IV DECREASED GLUCOSE; Start 12/28/18 at 05:00 Glucagon (Glucagen) 1 mg Q15M PRN IM DECREASED GLUCOSE; Start 12/28/18 at 05:00 Glucose (Glutose) 15 gm Q15M PRN BUCCAL DECREASED GLUCOSE; Start 12/28/18 at 05:00 Atorvastatin Calcium (Lipitor) 80 mg HS PO Last administered on 01/18/19 20:33; Admin Dose 80 MG; Start 12/29/18 at 21:00 Phenol (Cepastat Lozenge) 1 lozenge Q1H PRN MT COUGH Last administered on 01/03/19 13:05; Admin Dose 1 LOZENGE; Start 12/28/18 at 17:30 Escitalopram Oxalate (Lexapro) 10 mg DAILY PO Last administered on 01/19/19 09:06; Admin Dose 10 MG; Start 12/29/18 at 09:30 Risedronate (Actonel) 35 mg Tu@AC BREAKFAST PO ; Start 12/30/18 at 07:00 Mirtazapine (Remeron) 15 mg HS PO Last administered on 01/18/19 20:33; Admin Dose 15 MG; Start 12/29/18 at 21:00 Clopidogrel Bisulfate (plaVIX) 75 mg DAILY PO Last administered on 01/19/19 09 :06; Admin Dose 75 MG; Start 01/03/19 at 09:00 Morphine Sulfate (morphine) 1 mg Q1H PRN IV SEVERE PAIN LEVEL 7-10 Last administered on 01/19/19at 02:01; Admin Dose 1 MG; Start 01/04/19 at 16:00 Polyethylene Glycol (Miralax) 17 gm BID PRN PO CONSTIPATION Last administered on 01/16/19 15:37; Admin Dose 17 GM; Start 01/06/19 at 13:00 IV Flush (NS 10 ml) 10 ml PRN PRN IV flush; Start 01/06/19 at 18:30 Bisacodyl (Dulcolax Supp) 10 mg DAILY PRN [place] CONSTIPATION; Start 01/06/19 at 19:00 Albuterol/ Ipratropium (Duoneb) 3 ml Q4H RESP THERAPY PRN HHN SHORTNESS OF BREATH Last administered on 01/11/19 15:42; Admin Dose 3 ML; Start 01/07/19 at 20:00 IV Flush (NS 10 ml) 10 ml PRN PRN IV IV PROTOCOL; Start 01/12/19 at 18:00 Carvedilol (Coreg) 25 mg BID PO Last administered on 01/19/19 09:07; Admin Dose 25 MG; Start 01/16/19 at 09:00 Ketorolac Tromethamine (Toradol) 15 mg Q6H PRN IV PAIN Last administered on 01/19/19 09:06; Admin Dose 15 MG; Start 01/16/19 at 16:30; Stop 01/19/19 at 16:29 Insulin Aspart (Novolog Insulin Pen) (Adult SC Insulin - Mild Algorithm)... Q4 SC Last administered on 01/17/19 15:58; Admin Dose 1 UNIT; Start 01/17/19 at 05:00 Piperacillin Sod/ Tazobactam Sod 100 ml @ 25 mls/hr TID@02,10,18 IVPB Last administered on 01/19/19 11:17; Admin Dose 25 MLS/HR; Start 01/17/19 at 10:00 Vancomycin HCl (Vanco Iv Per Pharmacy) VANCOMYCIN PER PHARMACY PER PROTOCOL XX ; Start 01/17/19 at 10:00 Vancomycin HCl 250 ml @ 100 mls/hr Q24H IVPB Last administered on 01/19/19 11:57; Admin Dose 100 MLS/HR; Start 01/18/19 at 12:00 Metoclopramide HCl (Reglan) 10 mg Q8H IV Last administered on 01/19/19 09:06; Admin Dose 10 MG; Start 01/17/19 at 18:00 Docusate Sodium (Colace Liquid Cup) 100 mg BID PO Last administered on 01/19/19 09:06; Admin Dose 100 MG; Start 01/17/19 at 21:00 Famotidine (Pepcid Iv) 20 mg DAILY IV Last administered on 01/19/19 09:06; Admin Dose 20 MG; Start 01/19/19 at 09:00 Bumetanide (Bumex) 1 mg DAILY PO Last administered on 01/19/19 09:06; Admin Dose 1 MG; Start 01/19/19 at 09:00 PATTI CALLEJAS MD January 19, 2019 12:00
--- NOTE | 2019-01-19 12:27 | PN ---
Date/Time of Note Date/Time of Note DATE: 01/19/19 TIME: 12:19 Assessment/Plan VTE Prophylaxis Risk score (from Nsg)>0 risk: 6 SCD applied (from Nsg): Yes Pharmacological prophylaxis: other (scds) Lines/Catheters IV Catheter Type (from Nrsg): PICC Line Central line still needed: Yes (meds) Urinary Cath still in place: Yes Reason Cath still needed: other (indicate) (monitor output) Assessment/Plan Hospital Course Summary Assessment and Plan: Assessment: Abdominal pain/abdominal distention -CT abd/pelvis-Mild distension of the ascending and transverse colon with air-fluid levels. No evidence of bowel obstruction -KUB 01/14- Nonspecific bowel gas pattern with a few mildly distended air filled loops of small bowel. Leukocytosis Acute MN - S/p PCI to LAD (01/04) and RCA (01/08) Bilateral infiltrates, greatest in the right upper lobe CHF, with bilateral pleural effusion Bacteremia -Positive for coagulase-negative staph -Repeat blood cultures are negative Rash-2/2 to antibiotics- improved WILLIAM Acute on chronic encephalopathy -Patient with baseline dementia Diarrhea/loose stool -CDIFF- negative -Stool cx- coliform Plan: SBFT- to further assess for obstruction- ordered yesterday not completed BS more active today- abd softer- KUB- negative for obstruction- If SBFT neg- which will likely be the case- plan to start TF 10 ml/hr Clamp NGT Patient seen in collaboration with Dr. Diaz Subjective: Course reviewed with nursing staff Patient interviewed and examined All labs, imaging and other results reviewed Spouse at bedside, pt appears more comfortable today. Abd softer ,BS more active. She continues to have pain- better with pain medication. PHYSICAL EXAMINATION: GENERAL: Alert & oriented - confused SKIN: No lesions HEAD: Normocephalic, atraumatic, no tenderness. EYES: Pupils equal reactive to light and accommodation, no discharge. EARS/NOSE AND THROAT: Ears normal, nose normal. NECK: Supple, no masses. CHEST: Inspection within normal limits. CARDIOVASCULAR: Heart: Regular rate and rhythm RESPIRATORY: Lungs clear to auscultation GASTROINTESTINAL AND LIVER: Abdomen: Soft, non tenderness, distended, no h ernias, no masses, no organomegaly, no ascites, no guarding, no rebound tenderness, hypoactive bowel sounds. Rectal: Deferred. EXTREMITIES: No cyanosis, clubbing or edema. Result Diagram: 01/19/19 0615 01/19/19 0615 Results 24hrs Laboratory Tests Test 01/18/19 12:25 01/18/19 17:02 01/18/19 20:37 01/19/19 00:47 Bedside Glucose 126 124 123 102 Test 01/19/19 05:20 01/19/19 06:15 01/19/19 08:01 01/19/19 11:58 Bedside Glucose 109 111 108 White Blood Count 18.1 H Red Blood Count 2.84 L Hemoglobin 8.6 L Hematocrit 28.9 L Mean Corpuscular 101.8 H Volume Mean Corpuscular 30.3 Hemoglobin Mean Corpuscular 29.8 L Hemoglobin Concent Red Cell 19.8 H Distribution Width Platelet Count 140 Mean Platelet Volume 10.4 Immature 0.900 H Granulocytes % Neutrophils % 93.3 H Lymphocytes % 2.9 L Monocytes % 1.9 Eosinophils % 0.7 Basophils % 0.3 Nucleated Red Blood 0.0 Cells % Immature 0.160 H Granulocytes # Neutrophils # 16.9 H Lymphocytes # 0.5 L Monocytes # 0.3 Eosinophils # 0.1 Basophils # 0.1 Nucleated Red Blood 0.0 Cells # Sodium Level 142 Potassium Level 5.9 H Chloride Level 108 Carbon Dioxide Level 26 Anion Gap 8 Blood Urea Nitrogen 53 H Creatinine 2.33 H Est Glomerular Filtrat Rate mL/min Glucose Level 107 Calcium Level 7.8 L Magnesium Level 1.9 Exam/Review of Systems Exam Vitals Vital Signs Date Temp Pulse Resp B/P (MAP) Pulse Ox O2 O2 Flow FiO2 Time Delivery Rate 01/19/19 98.6 79 20 103/52 95 Nasal 11:40 (69) Cannula 01/19/19 5.0 08:02 01/19/19 27 02:25 Intake and Output 01/18/19 01/18/19 01/19/19 1515:00 23:00 07:00 IntakeIntake Total 300 ml 250 ml OutputOutput Total 400 ml 700 ml 175 ml BalanceBalance -100 ml -450 ml -175 ml Results Results 24hrs Laboratory Tests Test 01/18/19 12:25 01/18/19 17:02 01/18/19 20:37 01/19/19 00:47 Bedside Glucose 126 124 123 102 Test 01/19/19 05:20 01/19/19 06:15 01/19/19 08:01 01/19/19 11:58 Bedside Glucose 109 111 108 White Blood Count 18.1 H Red Blood Count 2.84 L Hemoglobin 8.6 L Hematocrit 28.9 L Mean Corpuscular 101.8 H Volume Mean Corpuscular 30.3 Hemoglobin Mean Corpuscular 29.8 L Hemoglobin Concent Red Cell 19.8 H Distribution Width Platelet Count 140 Mean Platelet Volume 10.4 Immature 0.900 H Granulocytes % Neutrophils % 93.3 H Lymphocytes % 2.9 L Monocytes % 1.9 Eosinophils % 0.7 Basophils % 0.3 Nucleated Red Blood 0.0 Cells % Immature 0.160 H Granulocytes # Neutrophils # 16.9 H Lymphocytes # 0.5 L Monocytes # 0.3 Eosinophils # 0.1 Basophils # 0.1 Nucleated Red Blood 0.0 Cells # Sodium Level 142 Potassium Level 5.9 H Chloride Level 108 Carbon Dioxide Level 26 Anion Gap 8 Blood Urea Nitrogen 53 H Creatinine 2.33 H Est Glomerular Filtrat Rate mL/min Glucose Level 107 Calcium Level 7.8 L Magnesium Level 1.9 Medications Medication Current Medications IV Flush (NS 3 ml) 3 ml PER PROTOCOL IV ; Start 12/28/18 at 04:30 Ondansetron HCl (Zofran Inj) 4 mg Q6H PRN IV NAUSEA/VOMITING Last administered on 01/17/19at 13:34; Admin Dose 4 MG; Start 12/28/18 at 04:30 Aspirin (Aspirin) 81 mg DAILY PO Last administered on 01/19/19at 09:06; Admin Dose 81 MG; Start 12/28/18 at 09:00 Nitroglycerin (Nitroglycerin (Sl Tab) 0.4 Mg) 1 tab Q5M PRN SL .CHEST PAIN Last administered on 01/10/19at 08:03; Admin Dose 1 TAB; Start 12/28/18 at 04:30 Miscellaneous Information 1 ea NOTE XX ; Start 12/28/18 at 05:00 Glucose (Glutose) 15 gm Q15M PRN PO DECREASED GLUCOSE; Start 12/28/18 at 05:00 Glucose (Glutose) 22.5 gm Q15M PRN PO DECREASED GLUCOSE; Start 12/28/18 at 05:00 Dextrose (D50w Syringe) 25 ml Q15M PRN IV DECREASED GLUCOSE; Start 12/28/18 at 05:00 Dextrose (D50w Syringe) 50 ml Q15M PRN IV DECREASED GLUCOSE; Start 12/28/18 at 05:00 Glucagon (Glucagen) 1 mg Q15M PRN IM DECREASED GLUCOSE; Start 12/28/18 at 05:00 Glucose (Glutose) 15 gm Q15M PRN BUCCAL DECREASED GLUCOSE; Start 12/28/18 at 05:00 Atorvastatin Calcium (Lipitor) 80 mg HS PO Last administered on 01/18/19 20:33; Admin Dose 80 MG; Start 12/29/18 at 21:00 Phenol (Cepastat Lozenge) 1 lozenge Q1H PRN MT COUGH Last administered on 01/03/19 13:05; Admin Dose 1 LOZENGE; Start 12/28/18 at 17:30 Escitalopram Oxalate (Lexapro) 10 mg DAILY PO Last administered on 01/19/19 09:06; Admin Dose 10 MG; Start 12/29/18 at 09:30 Risedronate (Actonel) 35 mg Tu@AC BREAKFAST PO ; Start 12/30/18 at 07:00 Mirtazapine (Remeron) 15 mg HS PO Last administered on 01/18/19 20:33; Admin Dose 15 MG; Start 12/29/18 at 21:00 Clopidogrel Bisulfate (plaVIX) 75 mg DAILY PO Last administered on 01/19/19 09:06; Admin Dose 75 MG; Start 01/03/19 at 09:00 Morphine Sulfate (morphine) 1 mg Q1H PRN IV SEVERE PAIN LEVEL 7-10 Last administered on 01/19/19 02:01; Admin Dose 1 MG; Start 01/04/19 at 16:00 Polyethylene Glycol (Miralax) 17 gm BID PRN PO CONSTIPATION Last administered on 01/16/19 15:37; Admin Dose 17 GM; Start 01/06/19 at 13:00 IV Flush (NS 10 ml) 10 ml PRN PRN IV flush; Start 01/06/19 at 18:30 Bisacodyl (Dulcolax Supp) 10 mg DAILY PRN NE CONSTIPATION; Start 01/06/19 at 19:00 Albuterol/ Ipratropium (Duoneb) 3 ml Q4H RESP THERAPY PRN HHN SHORTNESS OF BREATH Last administered on 01/11/19 15:42; Admin Dose 3 ML; Start 01/07/19 at 20:00 IV Flush (NS 10 ml) 10 ml PRN PRN IV IV PROTOCOL; Start 01/12/19 at 18:00 Carvedilol (Coreg) 25 mg BID PO Last administered on 01/19/19 09:07; Admin Dose 25 MG; Start 01/16/19 at 09:00 Ketorolac Tromethamine (Toradol) 15 mg Q6H PRN IV PAIN Last administered on 01/19/19 09:06; Admin Dose 15 MG; Start 01/16/19 at 16:30; Stop 01/19/19 at 16:29 Insulin Aspart (Novolog Insulin Pen) (Adult SC Insulin - Mild Algorithm)... Q4 SC Last administered on 01/17/19 15:58; Admin Dose 1 UNIT; Start 01/17/19 at 05:00 Piperacillin Sod/ Tazobactam Sod 100 ml @ 25 mls/hr TID@02,10,18 IVPB Last administered on 01/19/19 11:17; Admin Dose 25 MLS/HR; Start 01/17/19 at 10:00 Vancomycin HCl (Vanco Iv Per Pharmacy) VANCOMYCIN PER PHARMACY PER PROTOCOL XX ; Start 01/17/19 at 10:00 Vancomycin HCl 250 ml @ 100 mls/hr Q24H IVPB Last administered on 01/19/19 11:57; Admin Dose 100 MLS/HR; Start 01/18/19 at 12:00 Metoclopramide HCl (Reglan) 10 mg Q8H IV Last administered on 01/19/19 09:06; Admin Dose 10 MG; Start 01/17/19 at 18:00 Docusate Sodium (Colace Liquid Cup) 100 mg BID PO Last administered on 01/19/19 09:06; Admin Dose 100 MG; Start 01/17/19 at 21:00 Famotidine (Pepcid Iv) 20 mg DAILY IV Last administered on 01/19/19 09:06; Admin Dose 20 MG; Start 01/19/19 at 09:00 Bumetanide (Bumex) 1 mg DAILY PO Last administered on 01/19/19 09:06; Admin Dose 1 MG; Start 01/19/19 at 09:00 GARY PRIETO January 19, 2019 12:27
--- NOTE | 2019-01-19 17:36 | PN ---
Date/Time of Note Date/Time of Note DATE: 01/19/19 TIME: 17:35 Assessment/Plan VTE Prophylaxis Risk score (from Ns)>0 risk: 6 SCD applied (from Nsg): Yes Pharmacological prophylaxis: heparin Lines/Catheters IV Catheter Type (from Nrsg): PICC Line Central line still needed: Yes Urinary Cath still in place: Yes Reason Cath still needed: urinary retention Assessment/Plan Hospital Course 83 yo [place]-speaking woman with history of dementia, hypertension, dyslipidemia, severe MR and aortic stenosis, arrhythmia who presents with ACS and multi-vessel coronary artery disease. #Acute [place] - STEMI with LBBB - patient had cardiac cath on 12/28, found with: Severe 2 vessel CAD, LAD and RCA, LAD is culprit with francine 2 flow, and cardiomyopathy with LVEF 35%. Again patient also with severe aortic regurgitation and at least moderate mitral regurgitation. 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 -Short course of antibiotics given due to drug rash -Repeat blood cultures are negative #Rash-improved - Erythematous, macular rash on lower abdomen and part of chest noted 01/07 - May be related to transfusion, or drug reaction. - Got decadon, benadryl, pepcid without significant improvement but has not improved #WILLIAM: Patient was having poor urine output but renal function has improved and urine output has increased -Status post Bumex drip and now transitioned to scheduled Bumex, Bumex decreased to 0.5 mg daily due to rise in creatinine -Nephrology following -No CRISTINO or ARB at this time #Acute on chronic encephalopathy -Patient with baseline dementia but mentation has worsened likely secondary to delirium #Abdominal pain secondary to mild ileus and abdominal distention -KUB does show few mildly distended air filled loops of small bowel -Abdominal ultrasound shows a large echogenic lesion in the upper abdomen may represent fluid distended stomach versus mass, Recommend CT scan for further evaluation -CT abdomen showed only a distended abdomen, no masses noted, no SBO -Repleted potassium as hypokalemia may have been contributing to ileus -NG tube placed due to severely distended stomach but distention persists, NG tube in appropriate position, thick gastric aspirate noted -Started Reglan IV scheduled -GI consultation appreciated -Repeat KUB in a.m. Prophylaxis: SCDs DC planning: Patient has been refusing discharge to [place], patient has been accepted at a rehab facility, patient is not stable for DC to [facility] due to abdominal distention Result Diagram: 01/19/1915 01/19/19614 Results 24hrs Laboratory Tests Test 01/18/19 20:37 01/19/19 00:47 01/19/19 05:20 01/19/19 06:15 Bedside Glucose 123 102 109 White Blood Count 18.1 H Red Blood Count 2.84 L Hemoglobin 8.6 L Hematocrit 28.9 L Mean Corpuscular 101.8 H Volume Mean Corpuscular 30.3 Hemoglobin Mean Corpuscular 29.8 L Hemoglobin Concent Red Cell 19.8 H Distribution Width Platelet Count 140 Mean Platelet Volume 10.4 Immature 0.900 H Granulocytes % Neutrophils % 93.3 H Lymphocytes % 2.9 L Monocytes % 1.9 Eosinophils % 0.7 Basophils % 0.3 Nucleated Red Blood 0.0 Cells % Immature 0.160 H Granulocytes # Neutrophils # 16.9 H Lymphocytes # 0.5 L Monocytes # 0.3 Eosinophils # 0.1 Basophils # 0.1 Nucleated Red Blood 0.0 Cells # Sodium Level 142 Potassium Level 5.9 H Chloride Level 108 Carbon Dioxide Level 26 Anion Gap 8 Blood Urea Nitrogen 53 H Creatinine 2.33 H Est Glomerular Filtrat Rate mL/min Glucose Level 107 Calcium Level 7.8 L Magnesium Level 1.9 Test 01/19/19 08:01 01/19/19 11:58 Bedside Glucose 111 108 Subjective 24 Hr Interval Summary Free Text/Dictation Having abdominal pain SBFT normal Swallowing fine at bedside eval Exam/Review of Systems Exam Vitals Vital Signs Date Temp Pulse Resp B/P (MAP) Pulse Ox O2 O2 Flow FiO2 Time Delivery Rate 01/19/19 87 16:00 01/19/19 15:40 01/19/19 5.0 14:54 01/19/19 98.6 20 95 Nasal 11:40 Cannula 01/19/19 27 02:25 Intake and Output 01/18/19 01/18/19 01/19/19 1515:00 23:00 07:00 IntakeIntake Total 300 ml 250 ml OutputOutput Total 400 ml 700 ml 175 ml BalanceBalance -100 ml -450 ml -175 ml Constitutional: alert, oriented, well developed Psych: no complaints, nl mood/affect Head: normocephalic, atraumatic Eyes: nl conjunctiva, EOMI, nl lids, nl sclera, PERRL ENMT: nl external ears & nose, nl lips & teeth, nl nasal mucosa & septum Neck: supple, non-tender Respiratory: clear to auscultation, normal air movement Cardiovascular: regular rate and rhythm, nl pulses Gastrointestinal: soft, nl liver, spleen, non-tender Musculoskeletal: nl extremities to inspection, nl gait and stance Extremities: normal pulses Neurological: VEIN PUMPER II-XII intact, nl mental status, nl speech, nl strength Skin: nl turgor; No rash or lesions Lymph: nl lymph nodes Results Results 24hrs Laboratory Tests Test 01/18/19 20:37 01/19/19 00:47 01/19/19 05:20 01/19/19 06:15 Bedside Glucose 123 102 109 White Blood Count 18.1 H Red Blood Count 2.84 L Hemoglobin 8.6 L Hematocrit 28.9 L Mean Corpuscular 101.8 H Volume Mean Corpuscular 30.3 Hemoglobin Mean Corpuscular 29.8 L Hemoglobin Concent Red Cell 19.8 H Distribution Width Platelet Count 140 Mean Platelet Volume 10.4 Immature 0.900 H Granulocytes % Neutrophils % 93.3 H Lymphocytes % 2.9 L Monocytes % 1.9 Eosinophils % 0.7 Basophils % 0.3 Nucleated Red Blood 0.0 Cells % Immature 0.160 H Granulocytes # Neutrophils # 16.9 H Lymphocytes # 0.5 L Monocytes # 0.3 Eosinophils # 0.1 Basophils # 0.1 Nucleated Red Blood 0.0 Cells # Sodium Level 142 Potassium Level 5.9 H Chloride Level 108 Carbon Dioxide Level 26 Anion Gap 8 Blood Urea Nitrogen 53 H Creatinine 2.33 H Est Glomerular Filtrat Rate mL/min Glucose Level 107 Calcium Level 7.8 L Magnesium Level 1.9 Test 01/19/19 08:01 01/19/19 11:58 Bedside Glucose 111 108 Medications Medication Current Medications IV Flush (NS 3 ml) 3 ml PER PROTOCOL IV ; Start 12/28/18 at 04:30 Ondansetron HCl (Zofran Inj) 4 mg Q6H PRN IV NAUSEA/VOMITING Last administered on 01/17/19at 13:34; Admin Dose 4 MG; Start 12/28/18 at 04:30 Miscellaneous Information 1 ea NOTE XX ; Start 12/28/18 at 05:00 Glucose (Glutose) 15 gm Q15M PRN PO DECREASED GLUCOSE; Start 12/28/18 at 05:00 Glucose (Glutose) 22.5 gm Q15M PRN PO DECREASED GLUCOSE; Start 12/28/18 at 05:00 Dextrose (D50w Syringe) 25 ml Q15M PRN IV DECREASED GLUCOSE; Start 12/28/18 at 05:00 Dextrose (D50w Syringe) 50 ml Q15M PRN IV DECREASED GLUCOSE; Start 12/28/18 at 05:00 Glucagon (Glucagen) 1 mg Q15M PRN IM DECREASED GLUCOSE; Start 12/28/18 at 05:00 Glucose (Glutose) 15 gm Q15M PRN BUCCAL DECREASED GLUCOSE; Start 12/28/18 at 05:00 Phenol (Cepastat Lozenge) 1 lozenge Q1H PRN MT COUGH Last administered on 01/03/19at 13:05; Admin Dose 1 LOZENGE; Start 12/28/18 at 17:30 Escitalopram Oxalate (Lexapro) 10 mg DAILY PO Last administered on 01/19/19 09:06; Admin Dose 10 MG; Start 12/29/18 at 09:30 Mirtazapine (Remeron) 15 mg HS PO Last administered on 01/18/19 20:33; Admin D ose 15 MG; Start 12/29/18 at 21:00 Clopidogrel Bisulfate (plaVIX) 75 mg DAILY PO Last administered on 01/19/19 09:06; Admin Dose 75 MG; Start 01/03/19 at 09:00 Morphine Sulfate (morphine) 1 mg Q1H PRN IV SEVERE PAIN LEVEL 7-10 Last administered on 01/19/19at 02:01; Admin Dose 1 MG; Start 01/04/19 at 16:00 Polyethylene Glycol (Miralax) 17 gm BID PRN PO CONSTIPATION Last administered on 01/16/19at 15:37; Admin Dose 17 GM; Start 01/06/19 at 13:00 IV Flush (NS 10 ml) 10 ml PRN PRN IV flush; Start 01/06/19 at 18:30 Bisacodyl (Dulcolax Supp) 10 mg DAILY PRN HI CONSTIPATION; Start 01/06/19 at 19:00 Albuterol/ Ipratropium (Duoneb) 3 ml Q4H RESP THERAPY PRN HHN SHORTNESS OF BREATH Last administered on 01/11/19at 15:42; Admin Dose 3 ML; Start 01/07/19 at 20:00 IV Flush (NS 10 ml) 10 ml PRN PRN IV IV PROTOCOL; Start 01/12/19 at 18:00 Insulin Aspart (Novolog Insulin Pen) (Adult SC Insulin - Mild Algorithm)... Q4 SC Last administered on 01/17/19at 15:58; Admin Dose 1 UNIT; Start 01/17/19 at 05:00 Piperacillin Sod/ Tazobactam Sod 100 ml @ 25 mls/hr TID@02,10,18 IVPB Last administered on 01/19/19at 11:17; Admin Dose 25 MLS/HR; Start 01/17/19 at 10:00 Vancomycin HCl (Vanco Iv Per Pharmacy) VANCOMYCIN PER PHARMACY PER PROTOCOL XX ; Start 01/17/19 at 10:00 Famotidine (Pepcid Iv) 20 mg DAILY IV Last administered on 01/19/19at 09:06; Admin Dose 20 MG; Start 01/19/19 at 09:00 Bumetanide (Bumex) 1 mg DAILY PO Last administered on 01/19/19at 09:06; Admin Dose 1 MG; Start 01/19/19 at 09:00 Vancomycin HCl 250 ml @ 125 mls/hr Q48H IVPB ; Start 01/21/19 at 12:00 Aspirin (Aspirin) 81 mg DAILY PO ; Start 01/20/19 at 09:00 MARCELA GUEVARA MD January 19, 2019 17:36
[2019-01-19] MEDS ORDERED: SODIUM POLYSTYRENE 15 GM KIT (POWDER + SORBITOL) PO ONE (20:00)
[2019-01-19] MEDS: MIRTAZAPINE 15 MG TAB PO SCH (21:52)
[2019-01-19] MEDS ORDERED: LORAZEPAM 2 MG INJ IV PRN (22:30)
[2019-01-20] VITALS (19 sets, daily range): BP systolic 88–114; BP diastolic 35–70; PULSE 78–104; RESP 20–38
[2019-01-20] MEDS: Insulin NOVOLOG SS MILD Algorithm (NPO/TPN/ENTERAL FEEDS) SC SCH ×6 (00:30→20:37)
[2019-01-20] MEDS: PIPER-TAZO 3.375 GM IV (PMX) 100 ML IVPB SCH ×3 (02:08→17:23)
[2019-01-20] MEDS ORDERED: EPINEPHrine 10 MCG/1ml (10 ML SYG) IV ONE (03:00)
[2019-01-20] MEDS ORDERED: CA CHLORIDE 10% 10 ML SYRINGE ONE (03:00)
[2019-01-20] MEDS ORDERED: NA BICARBONATE 8.4% 50 ML SYG ONE (03:00)
[2019-01-20] MEDS ORDERED: LIDOCAINE HCL ONE (03:00)
[2019-01-20] MEDS ORDERED: ACETAMINOPHEN 325 MG TAB PO PRN (04:30)
[2019-01-20] MEDS: ASPIRIN 81 MG TAB PO SCH (09:00)
[2019-01-20] MEDS: CLOPIDOGREL 75 MG TAB PO SCH (09:00)
[2019-01-20] MEDS: BUMETANIDE 1 MG TAB PO SCH (09:00)
[2019-01-20] MEDS: ESCITALOPRAM 10 MG TAB PO SCH (09:00)
[2019-01-20] MEDS: FAMOTIDINE 20 MG INJ IV SCH (10:33)
[2019-01-20] MEDS ORDERED: FUROSEMIDE 40 MG INJ IV ONE ×2 (11:00→19:30)
--- NOTE | 2019-01-20 11:21 | PN ---
Date/Time of Note Date/Time of Note DATE: 01/20/19 TIME: 11:17 Assessment/Plan VTE Prophylaxis Risk score (from Ns)>0 risk: 11 SCD applied (from Ns): Yes Pharmacological prophylaxis: heparin Lines/Catheters IV Catheter Type (from Nrsg): PICC Line Central line still needed: Yes Urinary Cath still in place: Yes Reason Cath still needed: pres ulcer contaminated by urine Assessment/Plan Hospital Course EXAM: Lethargic, on bipap Tachypneic when removed mask + JVD Lungs clear, no wheezing Tachy, regular 83 yo Wallisian-speaking woman with history of dementia, hypertension, dyslipidemia, severe MR and aortic stenosis, arrhythmia who presents with ACS and multi-vessel coronary artery disease. Acute respiratory failure from acute systolic CHF: - Suspect from acute CHF/cardiorenal - Diuretics stat - BIPAP, transfer to ICU #Acute SD - STEMI with LBBB - patient had cardiac cath on 12/28, found with: Severe 2 vessel CAD, LAD and RCA, LAD is culprit with francine 2 flow, and cardiomyopathy with LVEF 35%. Again patient also with severe aortic regurgitation and at least moderate mitral regurgitation. 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 -Short course of antibiotics given due to drug rash -Repeat blood cultures are negative #WILLIAM: -Nephrology following -No CRISTINO or ARB at this time #Acute on chronic encephalopathy -Patient with baseline dementia but mentation has worsened likely secondary to delirium #Abdominal pain: - dc NG suction, no evidence of SBO Prophylaxis: SCDs Goign to ICU now Result Diagram: 01/19/19 0615 01/20/19 0706 Results 24hrs Laboratory Tests Test 01/19/19 11:58 01/19/19 17:26 01/19/19 20:00 01/20/19 00:28 Bedside Glucose 108 130 123 103 Test 01/20/19 03:53 01/20/19 04:30 01/20/19 07:06 01/20/19 08:22 Bedside Glucose 111 120 Urine Color YELLOW Urine Clarity TURBID A Urine pH 5.0 Urine Specific 1.027 [place] Urine Ketones NEGATIVE Urine Nitrite NEGATIVE Urine Bilirubin NEGATIVE Urine NEGATIVE Urobilinogen Urine Leukocyte 3+ H Esterase Urine Microscopic > 182 H RBC Urine Microscopic > 182 H WBC Urine Renal FEW A Epithelial Cells Urine Bacteria MODERATE Urine Yeast MANY A (Budding) Urine Hemoglobin 3+ H Urine Glucose NEGATIVE Urine Total 1+ H Protein Blood Urea 64 H Nitrogen Creatinine 2.73 H Test 01/20/19 10:00 Blood Gas Blood arterial Specimen Source Arterial Blood 01/20/2019 11:00: Date Drawn 01 AM Arterial Blood pH 7.368 (Temp corrected) Arterial Blood 37.3 pCO2 (Temp correct) Arterial Blood 65.6 L pO2 (Temp corrected) Arterial Blood 21.0 L HCO3 Arterial Blood -3.9 L Base Excess Arterial Blood 90.8 L Oxygen Saturation Francis Test ACCEPTAB Arterial Blood Left Radial Gas Puncture Site Arterial 0.3 Blood Carboxyhemo globin Arterial Blood 0.4 Methemoglobin Blood Gas A-a O2 104.5 H Differential Oxyhemoglobin 90.2 L Percent Blood Gas 37.0 Temperature Blood Gas 20.0 Respiration Rate Blood Gas Actual 26 Respiration Rate Blood Gas MASK - BIPAP Modality FiO2 30.0 Blood Gas 10 Pressure Support Blood Gas 15/5 IPAP/EPAP Ratio Blood Gas RT Notified Whom Blood Gas 01/20/2019 11:12: Notified Time 05 AM Subjective 24 Hr Interval Summary Free Text/Dictation Worsenign respiratory failure overnight, now on BIPAP. ABG shows resp alkalosis No evidecne of SBO on SBFT Exam/Review of Systems Exam Vitals Vital Signs Date Temp Pulse Resp B/P (MAP) Pulse Ox O2 O2 Flow FiO2 Time Delivery Rate 01/20/19 Nasal 5.0 08:30 Cannula 01/20/19 94 08:01 01/20/19 98.8 07:17 01/20/19 20 104/70 95 07:10 (81) 01/19/19 27 02:25 Intake and Output 01/19/19 01/19/19 01/20/19 1515:00 23:00 07:00 IntakeIntake Total 350 ml 450 ml 100 ml OutputOutput Total 250 ml 400 ml BalanceBalance 350 ml 200 ml -300 ml Results Results 24hrs Laboratory Tests Test 01/19/19 11:58 01/19/19 17:26 01/19/19 20:00 01/20/19 00:28 Bedside Glucose 108 130 123 103 Test 01/20/19 03:53 01/20/19 04:30 01/20/19 07:06 01/20/19 08:22 Bedside Glucose 111 120 Urine Color YELLOW Urine Clarity TURBID A Urine pH 5.0 Urine Specific 1.027 [place] Urine Ketones NEGATIVE Urine Nitrite NEGATIVE Urine Bilirubin NEGATIVE Urine NEGATIVE Urobilinogen Urine Leukocyte 3+ H Esterase Urine Microscopic > 182 H RBC Urine Microscopic > 182 H WBC Urine Renal FEW A Epithelial Cells Urine Bacteria MODERATE Urine Yeast MANY A (Budding) Urine Hemoglobin 3+ H Urine Glucose NEGATIVE Urine Total 1+ H Protein Blood Urea 64 H Nitrogen Creatinine 2.73 H Test 01/20/19 10:00 Blood Gas Blood arterial Specimen Source Arterial Blood 01/20/2019 11:00: Date Drawn 01 AM Arterial Blood pH 7.368 (Temp corrected) Arterial Blood 37.3 pCO2 (Temp correct) Arterial Blood 65.6 L pO2 (Temp corrected) Arterial Blood 21.0 L HCO3 Arterial Blood -3.9 L Base Excess Arterial Blood 90.8 L Oxygen Saturation Francis Test ACCEPTAB Arterial Blood Left Radial Gas Puncture Site Arterial 0.3 Blood Carboxyhemo globin Arterial Blood 0.4 Methemoglobin Blood Gas A-a O2 104.5 H Differential Oxyhemoglobin 90.2 L Percent Blood Gas 37.0 Temperature Blood Gas 20.0 Respiration Rate Blood Gas Actual 26 Respiration Rate Blood Gas MASK - BIPAP Modality FiO2 30.0 Blood Gas 10 Pressure Support Blood Gas 15/5 IPAP/EPAP Ratio Blood Gas RT Notified Whom Blood Gas 01/20/2019 11:12: Notified Time 05 AM Medications Medication Current Medications IV Flush (NS 3 ml) 3 ml PER PROTOCOL IV ; Start 12/28/18 at 04:30 Ondansetron HCl (Zofran Inj) 4 mg Q6H PRN IV NAUSEA/VOMITING Last administered on 01/17/19at 13:34; Admin Dose 4 MG; Start 12/28/18 at 04:30 Miscellaneous Information 1 ea NOTE XX ; Start 12/28/18 at 05:00 Glucose (Glutose) 15 gm Q15M PRN PO DECREASED GLUCOSE; Start 12/28/18 at 05:00 Glucose (Glutose) 22.5 gm Q15M PRN PO DECREASED GLUCOSE; Start 12/28/18 at 05:00 Dextrose (D50w Syringe) 25 ml Q15M PRN IV DECREASED GLUCOSE; Start 12/28/18 at 05:00 Dextrose (D50w Syringe) 50 ml Q15M PRN IV DECREASED GLUCOSE; Start 12/28/18 at 05:00 Glucagon (Glucagen) 1 mg Q15M PRN IM DECREASED GLUCOSE; Start 12/28/18 at 05:00 Glucose (Glutose) 15 gm Q15M PRN BUCCAL DECREASED GLUCOSE; Start 12/28/18 at 05:00 Phenol (Cepastat Lozenge) 1 lozenge Q1H PRN MT COUGH Last administered on 01/03/19at 13:05; Admin Dose 1 LOZENGE; Start 12/28/18 at 17:30 Escitalopram Oxalate (Lexapro) 10 mg DAILY PO Last administered on 01/19/19 09:06; Admin Dose 10 MG; Start 12/29/18 at 09:30 Mirtazapine (Remeron) 15 mg HS PO Last administered on 01/19/19at 21:52; Admin Dose 15 MG; Start 12/29/18 at 21:00 Clopidogrel Bisulfate (plaVIX) 75 mg DAILY PO Last administered on 01/19/19 09:06; Admin Dose 75 MG; Start 01/03/19 at 09:00 Morphine Sulfate (morphine) 1 mg Q1H PRN IV SEVERE PAIN LEVEL 7-10 Last administered on 01/19/19at 02:01; Admin Dose 1 MG; Start 01/04/19 at 16:00 Polyethylene Glycol (Miralax) 17 gm BID PRN PO CONSTIPATION Last administered on 01/16/19at 15:37; Admin Dose 17 GM; Start 01/06/19 at 13:00 IV Flush (NS 10 ml) 10 ml PRN PRN IV flush; Start 01/06/19 at 18:30 Bisacodyl (Dulcolax Supp) 10 mg DAILY PRN [place] CONSTIPATION; Start 01/06/19 at 19:00 Albuterol/ Ipratropium (Duoneb) 3 ml Q4H RESP THERAPY PRN HHN SHORTNESS OF BREATH Last administered on 01/11/19at 15:42; Admin Dose 3 ML; Start 01/07/19 at 20:00 IV Flush (NS 10 ml) 10 ml PRN PRN IV IV PROTOCOL; Start 01/12/19 at 18:00 Insulin Aspart (Novolog Insulin Pen) (Adult SC Insulin - Mild Algorithm)... Q4 SC Last administered on 01/17/19at 15:58; Admin Dose 1 UNIT; Start 01/17/19 at 05:00 Piperacillin Sod/ Tazobactam Sod 100 ml @ 25 mls/hr TID@02,,18 IVPB Last administered on 01/20/19at 10:33; Admin Dose 25 MLS/HR; Start 01/17/19 at 10:00 Vancomycin HCl (Vanco Iv Per Pharmacy) VANCOMYCIN PER PHARMACY PER PROTOCOL XX ; Start 01/17/19 at 10:00 Famotidine (Pepcid Iv) 20 mg DAILY IV Last administered on 01/20/19at 10:33; Admin Dose 20 MG; Start 01/19/19 at 09:00 Bumetanide (Bumex) 1 mg DAILY PO Last administered on 01/19/19at 09:06; Admin Dose 1 MG; Start 01/19/19 at 09:00 Vancomycin HCl 250 ml @ 125 mls/hr Q48H IVPB ; Start 01/21/19 at 12:00 Aspirin (Aspirin) 81 mg DAILY PO ; Start 01/20/19 at 09:00 Lorazepam (Ativan) 0.5 mg Q12H PRN IV AGITATION/ANXIETY; Start 01/19/19 at 22:30 Acetaminophen (Tylenol Tab) 650 mg Q6H PRN PO MILD PAIN(1-3)OR ELEVATED TEMP Last administered on 01/20/19at 06:18; Admin Dose 650 MG; Start 01/20/19 at 04:30 Miscellaneous Information (*Rx Drug Level Order Reminder*) VANCOMYCIN RANDOM LEVEL IN AM 0500 ONCE XX ; Start 01/21/19 at 05:00; Stop 01/21/19 at 05:01 MARCELA GUEVARA MD January 20, 2019 11:21
--- NOTE | 2019-01-20 13:04 | PN ---
Date/Time of Note Date/Time of Note DATE: 01/20/19 TIME: 13:03 Assessment/Plan VTE Prophylaxis Risk score (from Nsg)>0 risk: 11 SCD applied (from Nsg): Yes Pharmacological prophylaxis: other (scds) Lines/Catheters IV Catheter Type (from Nrsg): PICC Line Central line still needed: Yes (meds) Urinary Cath still in place: Yes Reason Cath still needed: other (indicate) (monitor output) Assessment/Plan Hospital Course Summary Assessment and Plan: Assessment: Acute resp failure -On BiPAP- transferred to ICU 01/20/19 Abdominal pain/abdominal distention -CT abd/pelvis-Mild distension of the ascending and transverse colon with air-fluid levels. No evidence of bowel obstruction -KUB 01/14- Nonspecific bowel gas pattern with a few mildly distended air filled loops of small bowel. -SBFT- negative for obstruction Leukocytosis Acute LA - S/p PCI to LAD (01/04) and RCA (01/08) Bilateral infiltrates, greatest in the right upper lobe CHF, with bilateral pleural effusion Bacteremia -Positive for coagulase-negative staph -Repeat blood cultures are negative Rash-2/2 to antibiotics- improved WILLIAM Acute on chronic encephalopathy -Patient with baseline dementia Diarrhea/loose stool -CDIFF- negative -Stool cx- coliform Plan: SBFT- neg Monitor today- if patient does not improve by tomorrow consider other forms of nutrition including TPN Pt patient does improve and ble to be taken off Bipap - recommend ST evaluation Patient seen in collaboration with Dr. Diaz/Dorene Subjective: Course reviewed with nursing staff Patient interviewed and examined All labs, imaging and other results reviewed Pt with increased lethargy and and resp failure, transferred to ICU- placed on Bipap CXR- shows- Improved right upper lobe infiltrate however there appears to be worsened CHF with continued left lower lobe infiltrate/atelectasis and small l eft pleural effusion. Worsening kidney function noted, Patient spouse is at bedside. PHYSICAL EXAMINATION: GENERAL: Lethargic, confused EARS/NOSE AND THROAT: Ears normal, nose normal. NECK: Supple, no masses. CHEST: Inspection within normal limits. CARDIOVASCULAR: Heart: Regular rate and rhythm RESPIRATORY: Lungs clear to auscultation GASTROINTESTINAL AND LIVER: Abdomen: Soft, non tenderness, distended, no hernias, no masses, no organomegaly, no ascites, no guarding, no rebound tenderness, hypoactive bowel sounds. Rectal: Deferred. EXTREMITIES: No cyanosis, clubbing or edema. Result Diagram: 01/19/19 0615 01/20/19 0706 Results 24hrs Laboratory Tests Test 01/19/19 17:26 01/19/19 20:00 01/20/19 00:28 01/20/19 03:53 Bedside Glucose 130 123 103 111 Test 01/20/19 04:30 01/20/19 07:06 01/20/19 08:22 01/20/19 10:00 Urine Color YELLOW Urine Clarity TURBID A Urine pH 5.0 Urine Specific 1.027 [place] Urine Ketones NEGATIVE Urine Nitrite NEGATIVE Urine Bilirubin NEGATIVE Urine NEGATIVE Urobilinogen Urine Leukocyte 3+ H Esterase Urine Microscopic > 182 H RBC Urine Microscopic > 182 H WBC Urine Renal FEW A Epithelial Cells Urine Bacteria MODERATE Urine Yeast MANY A (Budding) Urine Hemoglobin 3+ H Urine Glucose NEGATIVE Urine Total 1+ H Protein Blood Urea 64 H Nitrogen Creatinine 2.73 H Bedside Glucose 120 Blood Gas Blood arterial Specimen Source Arterial Blood 01/20/2019 11:00: Date Drawn 01 AM Arterial Blood pH 7.368 (Temp corrected) Arterial Blood 37.3 pCO2 (Temp correct) Arterial Blood 65.6 L pO2 (Temp corrected) Arterial Blood 21.0 L HCO3 Arterial Blood -3.9 L Base Excess Arterial Blood 90.8 L Oxygen Saturation Francis Test ACCEPTAB Arterial Blood Left Radial Gas Puncture Site Arterial 0.3 Blood Carboxyhemo globin Arterial Blood 0.4 Methemoglobin Blood Gas A-a O2 104.5 H Differential Oxyhemoglobin 90.2 L Percent Blood Gas 37.0 Temperature Blood Gas 20.0 Respiration Rate Blood Gas Actual 26 Respiration Rate Blood Gas MASK - BIPAP Modality FiO2 30.0 Blood Gas 10 Pressure Support Blood Gas 15/5 IPAP/EPAP Ratio Blood Gas RT Notified Whom Blood Gas 01/20/2019 11:12: Notified Time 05 AM Exam/Review of Systems Exam Vitals Vital Signs Date Temp Pulse Resp B/P (MAP) Pulse Ox O2 O2 Flow FiO2 Time Delivery Rate 01/20/19 Nasal 4.0 12:00 Cannula 01/20/19 78 12:00 01/20/19 99.2 112/51 95 12:00 (71) 01/20/19 20 07:10 01/19/19 27 02:25 Intake and Output 01/19/19 01/19/19 01/20/19 1515:00 23:00 07:00 IntakeIntake Total 350 ml 450 ml 100 ml OutputOutput Total 250 ml 400 ml BalanceBalance 350 ml 200 ml -300 ml Results Results 24hrs Laboratory Tests Test 01/19/19 17:26 01/19/19 20:00 01/20/19 00:28 01/20/19 03:53 Bedside Glucose 130 123 103 111 Test 01/20/19 04:30 01/20/19 07:06 01/20/19 08:22 01/20/19 10:00 Urine Color YELLOW Urine Clarity TURBID A Urine pH 5.0 Urine Specific 1.027 [place] Urine Ketones NEGATIVE Urine Nitrite NEGATIVE Urine Bilirubin NEGATIVE Urine NEGATIVE Urobilinogen Urine Leukocyte 3+ H Esterase Urine Microscopic > 182 H RBC Urine Microscopic > 182 H WBC Urine Renal FEW A Epithelial Cells Urine Bacteria MODERATE Urine Yeast MANY A (Budding) Urine Hemoglobin 3+ H Urine Glucose NEGATIVE Urine Total 1+ H Protein Blood Urea 64 H Nitrogen Creatinine 2.73 H Bedside Glucose 120 Blood Gas Blood arterial Specimen Source Arterial Blood 01/20/2019 11:00: Date Drawn 01 AM Arterial Blood pH 7.368 (Temp corrected) Arterial Blood 37.3 pCO2 (Temp correct) Arterial Blood 65.6 L pO2 (Temp corrected) Arterial Blood 21.0 L HCO3 Arterial Blood -3.9 L Base Excess Arterial Blood 90.8 L Oxygen Saturation Francis Test ACCEPTAB Arterial Blood Left Radial Gas Puncture Site Arterial 0.3 Blood Carboxyhemo globin Arterial Blood 0.4 Methemoglobin Blood Gas A-a O2 104.5 H Differential Oxyhemoglobin 90.2 L Percent Blood Gas 37.0 Temperature Blood Gas 20.0 Respiration Rate Blood Gas Actual 26 Respiration Rate Blood Gas MASK - BIPAP Modality FiO2 30.0 Blood Gas 10 Pressure Support Blood Gas 15/ IPAP/EPAP Ratio Blood Gas RT Notified Whom Blood Gas 01/20/2019 11:12: Notified Time 05 AM Medications Medication Current Medications IV Flush (NS 3 ml) 3 ml PER PROTOCOL IV ; Start 12/28/18 at 04:30 Ondansetron HCl (Zofran Inj) 4 mg Q6H PRN IV NAUSEA/VOMITING Last administered on 01/17/19at 13:34; Admin Dose 4 MG; Start 12/28/18 at 04:30 Miscellaneous Information 1 ea NOTE XX ; Start 12/28/18 at 05:00 Glucose (Glutose) 15 gm Q15M PRN PO DECREASED GLUCOSE; Start 12/28/18 at 05:00 Glucose (Glutose) 22.5 gm Q15M PRN PO DECREASED GLUCOSE; Start 12/28/18 at 05:00 Dextrose (D50w Syringe) 25 ml Q15M PRN IV DECREASED GLUCOSE; Start 12/28/18 at 05:00 Dextrose (D50w Syringe) 50 ml Q15M PRN IV DECREASED GLUCOSE; Start 12/28/18 at 05:00 Glucagon (Glucagen) 1 mg Q15M PRN IM DECREASED GLUCOSE; Start 12/28/18 at 05:00 Glucose (Glutose) 15 gm Q15M PRN BUCCAL DECREASED GLUCOSE; Start 12/28/18 at 05:00 Phenol (Cepastat Lozenge) 1 lozenge Q1H PRN MT COUGH Last administered on 01/03/19at 13:05; Admin Dose 1 LOZENGE; Start 12/28/18 at 17:30 Escitalopram Oxalate (Lexapro) 10 mg DAILY PO Last administered on 01/19/19at 09:06; Admin Dose 10 MG; Start 12/29/18 at 09:30 Clopidogrel Bisulfate (plaVIX) 75 mg DAILY PO Last administered on 01/19/19at 09:06; Admin Dose 75 MG; Start 01/03/19 at 09:00 Morphine Sulfate (morphine) 1 mg Q1H PRN IV SEVERE PAIN LEVEL 7-10 Last administered on 01/19/19at 02:01; Admin Dose 1 MG; Start 01/04/19 at 16:00 Polyethylene Glycol (Miralax) 17 gm BID PRN PO CONSTIPATION Last administered on 01/16/19at 15:37; Admin Dose 17 GM; Start 01/06/19 at 13:00 IV Flush (NS 10 ml) 10 ml PRN PRN IV flush; Start 01/06/19 at 18:30 Bisacodyl (Dulcolax Supp) 10 mg DAILY PRN [place] CONSTIPATION; Start 01/06/19 at 19:00 Albuterol/ Ipratropium (Duoneb) 3 ml Q4H RESP THERAPY PRN HHN SHORTNESS OF BREATH Last administered on 01/11/19at 15:42; Admin Dose 3 ML; Start 01/07/19 at 20:00 IV Flush (NS 10 ml) 10 ml PRN PRN IV IV PROTOCOL; Start 01/12/19 at 18:00 Insulin Aspart (Novolog Insulin Pen) (Adult SC Insulin - Mild Algorithm)... Q4 SC Last administered on 01/17/19at 15:58; Admin Dose 1 UNIT; Start 01/17/19 at 05:00 Piperacillin Sod/ Tazobactam Sod 100 ml @ 25 mls/hr TID@02,,18 IVPB Last administered on 01/20/19at 10:33; Admin Dose 25 MLS/HR; Start 01/17/19 at 10:00 Famotidine (Pepcid Iv) 20 mg DAILY IV Last administered on 01/20/19at 10:33; Admin Dose 20 MG; Start 01/19/19 at 09:00 Bumetanide (Bumex) 1 mg DAILY PO Last administered on 01/19/19at 09:06; Admin Dose 1 MG; Start 01/19/19 at 09:00 Aspirin (Aspirin) 81 mg DAILY PO ; Start 01/20/19 at 09:00 Lorazepam (Ativan) 0.5 mg Q12H PRN IV AGITATION/ANXIETY; Start 01/19/19 at 22:30 Acetaminophen (Tylenol Tab) 650 mg Q6H PRN PO MILD PAIN(1-3)OR ELEVATED TEMP Last administered on 01/20/19 06:18; Admin Dose 650 MG; Start 01/20/19 at 04:30 GARY PRIETO January 20, 2019 13:04
--- NOTE | 2019-01-20 13:45 | PN ---
Date/Time of Note Date/Time of Note DATE: 01/20/19 TIME: 13:39 Assessment/Plan VTE Prophylaxis Risk score (from Ns)>0 risk: 11 SCD applied (from Ns): Yes Pharmacological prophylaxis: other (scds) Lines/Catheters IV Catheter Type (from [facility] PICC Line Urinary Cath still in place: Yes Assessment/Plan Hospital Course Duplicate Result Diagram: 01/19/19 0615 01/20/19 0706 Results 24hrs Laboratory Tests Test 01/19/19 17:26 01/19/19 20:00 01/20/19 00:28 01/20/19 03:53 Bedside Glucose 130 123 103 111 Test 01/20/19 04:30 01/20/19 07:06 01/20/19 08:22 01/20/19 10:00 Urine Color YELLOW Urine Clarity TURBID A Urine pH 5.0 Urine Specific 1.027 [place] Urine Ketones NEGATIVE Urine Nitrite NEGATIVE Urine Bilirubin NEGATIVE Urine NEGATIVE Urobilinogen Urine Leukocyte 3+ H Esterase Urine Microscopic > 182 H RBC Urine Microscopic > 182 H WBC Urine Renal FEW A Epithelial Cells Urine Bacteria MODERATE Urine Yeast MANY A (Budding) Urine Hemoglobin 3+ H Urine Glucose NEGATIVE Urine Total 1+ H Protein Blood Urea 64 H Nitrogen Creatinine 2.73 H Bedside Glucose 120 Blood Gas Blood arterial Specimen Source Arterial Blood 01/20/2019 11:00: Date Drawn 01 AM Arterial Blood pH 7.368 (Temp corrected) Arterial Blood 37.3 pCO2 (Temp correct) Arterial Blood 65.6 L pO2 (Temp corrected) Arterial Blood 21.0 L HCO3 Arterial Blood -3.9 L Base Excess Arterial Blood 90.8 L Oxygen Saturation Francis Test ACCEPTAB Arterial Blood Left Radial Gas Puncture Site Arterial 0.3 Blood Carboxyhemo globin Arterial Blood 0.4 Methemoglobin Blood Gas A-a O2 104.5 H Differential Oxyhemoglobin 90.2 L Percent Blood Gas 37.0 Temperature Blood Gas 20.0 Respiration Rate Blood Gas Actual 26 Respiration Rate Blood Gas MASK - BIPAP Modality FiO2 30.0 Blood Gas 10 Pressure Support Blood Gas 15/ IPAP/EPAP Ratio Blood Gas RT Notified Whom Blood Gas 01/20/2019 11:12: Notified Time 05 AM Exam/Review of Systems Exam Vitals Vital Signs Date Temp Pulse Resp B/P (MAP) Pulse Ox O2 O2 Flow FiO2 Time Delivery Rate 01/20/19 Nasal 4.0 12:00 Cannula 01/20/19 78 12:00 01/20/19 99.2 112/51 95 12:00 (71) 01/20/19 20 07:10 01/19/19 27 02:25 Intake and Output 01/19/19 01/19/19 01/20/19 1515:00 23:00 07:00 IntakeIntake Total 350 ml 450 ml 100 ml OutputOutput Total 250 ml 400 ml BalanceBalance 350 ml 200 ml -300 ml Results Results 24hrs Laboratory Tests Test 01/19/19 17:26 01/19/19 20:00 01/20/19 00:28 01/20/19 03:53 Bedside Glucose 130 123 103 111 Test 01/20/19 04:30 01/20/19 07:06 01/20/19 08:22 01/20/19 10:00 Urine Color YELLOW Urine Clarity TURBID A Urine pH 5.0 Urine Specific 1.027 [place] Urine Ketones NEGATIVE Urine Nitrite NEGATIVE Urine Bilirubin NEGATIVE Urine NEGATIVE Urobilinogen Urine Leukocyte 3+ H Esterase Urine Microscopic > 182 H RBC Urine Microscopic > 182 H WBC Urine Renal FEW A Epithelial Cells Urine Bacteria MODERATE Urine Yeast MANY A (Budding) Urine Hemoglobin 3+ H Urine Glucose NEGATIVE Urine Total 1+ H Protein Blood Urea 64 H Nitrogen Creatinine 2.73 H Bedside Glucose 120 Blood Gas Blood arterial Specimen Source Arterial Blood 01/20/2019 11:00: Date Drawn 01 AM Arterial Blood pH 7.368 (Temp corrected) Arterial Blood 37.3 pCO2 (Temp correct) Arterial Blood 65.6 L pO2 (Temp corrected) Arterial Blood 21.0 L HCO3 Arterial Blood -3.9 L Base Excess Arterial Blood 90.8 L Oxygen Saturation Francis Test ACCEPTAB Arterial Blood Left Radial Gas Puncture Site Arterial 0.3 Blood Carboxyhemo globin Arterial Blood 0.4 Methemoglobin Blood Gas A-a O2 104.5 H Differential Oxyhemoglobin 90.2 L Percent Blood Gas 37.0 Temperature Blood Gas 20.0 Respiration Rate Blood Gas Actual 26 Respiration Rate Blood Gas MASK - BIPAP Modality FiO2 30.0 Blood Gas 10 Pressure Support Blood Gas 07/01 IPAP/EPAP Ratio Blood Gas RT Notified Whom Blood Gas 01/20/2019 11:12: Notified Time 05 AM Medications Medication Current Medications IV Flush (NS 3 ml) 3 ml PER PROTOCOL IV ; Start 12/28/18 at 04:30 Ondansetron HCl (Zofran Inj) 4 mg Q6H PRN IV NAUSEA/VOMITING Last administered on 01/17/19at 13:34; Admin Dose 4 MG; Start 12/28/18 at 04:30 Miscellaneous Information 1 ea NOTE XX ; Start 12/28/18 at 05:00 Glucose (Glutose) 15 gm Q15M PRN PO DECREASED GLUCOSE; Start 12/28/18 at 05:00 Glucose (Glutose) 22.5 gm Q15M PRN PO DECREASED GLUCOSE; Start 12/28/18 at 05:00 Dextrose (D50w Syringe) 25 ml Q15M PRN IV DECREASED GLUCOSE; Start 12/28/18 at 05:00 Dextrose (D50w Syringe) 50 ml Q15M PRN IV DECREASED GLUCOSE; Start 12/28/18 at 05:00 Glucagon (Glucagen) 1 mg Q15M PRN IM DECREASED GLUCOSE; Start 12/28/18 at 05:00 Glucose (Glutose) 15 gm Q15M PRN BUCCAL DECREASED GLUCOSE; Start 12/28/18 at 05:00 Phenol (Cepastat Lozenge) 1 lozenge Q1H PRN MT COUGH Last administered on 01/03/19at 13:05; Admin Dose 1 LOZENGE; Start 12/28/18 at 17:30 Escitalopram Oxalate (Lexapro) 10 mg DAILY PO Last administered on 01/19/19at 09:06; Admin Dose 10 MG; Start 12/29/18 at 09:30 Clopidogrel Bisulfate (plaVIX) 75 mg DAILY PO Last administered on 01/19/19at 09:06; Admin Dose 75 MG; Start 01/03/19 at 09:00 Morphine Sulfate (morphine) 1 mg Q1H PRN IV SEVERE PAIN LEVEL 7-10 Last administered on 01/19/19at 02:01; Admin Dose 1 MG; Start 01/04/19 at 16:00 Polyethylene Glycol (Miralax) 17 gm BID PRN PO CONSTIPATION Last administered on 01/16/19at 15:37; Admin Dose 17 GM; Start 01/06/19 at 13:00 IV Flush (NS 10 ml) 10 ml PRN PRN IV flush; Start 01/06/19 at 18:30 Bisacodyl (Dulcolax Supp) 10 mg DAILY PRN [place] CONSTIPATION; Start 01/06/19 at 19:00 Albuterol/ Ipratropium (Duoneb) 3 ml Q4H RESP THERAPY PRN HHN SHORTNESS OF BREATH Last administered on 01/11/19 15:42; Admin Dose 3 ML; Start 01/07/19 at 20:00 IV Flush (NS 10 ml) 10 ml PRN PRN IV IV PROTOCOL; Start 01/12/19 at 18:00 Insulin Aspart (Novolog Insulin Pen) (Adult SC Insulin - Mild Algorithm)... Q4 SC Last administered on 01/17/19 15:58; Admin Dose 1 UNIT; Start 01/17/19 at 05:00 Piperacillin Sod/ Tazobactam Sod 100 ml @ 25 mls/hr TID@02,10,18 IVPB Last administered on 01/20/19 10:33; Admin Dose 25 MLS/HR; Start 01/17/19 at 10:00 Famotidine (Pepcid Iv) 20 mg DAILY IV Last administered on 01/20/19 10:33; Admin Dose 20 MG; Start 01/19/19 at 09:00 Bumetanide (Bumex) 1 mg DAILY PO Last administered on 01/19/19 09:06; Admin Dose 1 MG; Start 01/19/19 at 09:00 Aspirin (Aspirin) 81 mg DAILY PO ; Start 01/20/19 at 09:00 Lorazepam (Ativan) 0.5 mg Q12H PRN IV AGITATION/ANXIETY; Start 01/19/19 at 22:30 Acetaminophen (Tylenol Tab) 650 mg Q6H PRN PO MILD PAIN(1-3)OR ELEVATED TEMP Last administered on 01/20/19 06:18; Admin Dose 650 MG; Start 01/20/19 at 04:30 GARY PRIETO January 20, 2019 13:45
--- NOTE | 2019-01-20 15:42 | PN ---
DATE: 01/20/2019 SUBJECTIVE: The patient is more lethargic this morning. PHYSICAL EXAMINATION: VITAL SIGNS: Temperature 98, pulse is 94, blood pressure 104/70, O2 saturation 96%, FIO2 5 liters. NECK: Supple. No JVD or lymphadenopathy. CARDIAC: S1, S2, no added sounds or murmurs. CHEST: Diminished air entry bilaterally. ABDOMEN: Soft, nontender. No guarding or rebound. EXTREMITIES: No cyanosis, clubbing, or edema. NEUROLOGIC: Generalized weakness. LABORATORY DATA: BUN 64, creatinine 2.73. Chest x-ray shows improved right upper lobe infiltrate, b ut worsening pulmonary edema. Arterial blood gas; pH 7.36, pCO2 36, pO2 of 65. IMPRESSION: 1. Worsening encephalopathy, likely secondary to volume overload and hypoxemia. 2. Progressive renal failure previously contrast nephropathy. 3. Coronary artery disease status post stent placement x2. 4. Small-bowel obstruction with NG tube in place. PLAN: 1. Transfer to intensive care unit. 2. Supplemental O2. 3. Renal recommendations. The patient may require initiation of hemodialysis. 4. Nasogastric tube to suction. 5. Address goals of care with family as overall prognosis is extremely poor. Dictated By: TONE REID MD SV/NTS Conf#: [id number] DID#: [id number] CC: MARCELA GUEVARA MD; FIOR NEW MD; BAIRON TRAN MD;*EndCC*
--- NOTE | 2019-01-20 16:27 | CONS ---
Assessment/Plan Assessment/Plan Assessment/Plan (Daily) 1. Acute kidney injury on CKD III 2/2 Hemodynamics from CHF + NSTEMI - worsening renal failure 2. Hyperkalemia 3. Hypernatremia -improved to normal 4. acute NSTEMI s/p LHC showed multivessel obstructive CAD - s/p Successful PTCA and stenting of proximal left anterior descending artery using a 3 x 20 mm Synergy drug-eluting stent on 01/04/19- s/p LHC with proximal RCA stenting on 01/08/19 5. CAD multivessel obstructive 6. Anemia of Chronic disease s/p 2 U PRBC on 01/07/19 Plan: BUN/Cr went upto 64/2.73- No electrolytes available IV abx vancomycin stopped, pt respiratory status worsening, Lasix 40mg IV x 1 has been ordered and pt is already on bumex Coreg 25 mg bID, ASA, plavix, Lipitor ABG stat and to follow up on it will follow up Consultation Date/Type/Reason Admit Date/Time December 28, 2018 at 03:23 Initial Consult Date 12/28/18 Type of Consult NEPHROLOGY Requesting Provider: KRYSTAL BERNARD Date/Time of Note DATE: 01/20/19 TIME: 16:26 24 HR Interval Summary Free Text/Dictation pt urine output dropping down, BP stable, plan for BIPAP today Exam/Review of Systems Exam Vitals Vital Signs Date Temp Pulse Resp B/P (MAP) Pulse Ox O2 O2 Flow FiO2 Time Delivery Rate 01/20/19 88 26 109/40 96 High Flow 15:00 (63) 01/20/19 4.0 12:00 01/20/19 99.2 12:00 01/20/19 30 11:40 Intake and Output 01/19/19 01/19/19 01/20/19 1515:00 23:00 07:00 IntakeIntake Total 350 ml 450 ml 100 ml OutputOutput Total 250 ml 400 ml BalanceBalance 350 ml 200 ml -300 ml Exam Constitutional: mild to moderate distress Eyes: NICO< EOMI Neck: supple, + JVD Respiratory: Bilateral basilar crackles Cardiovascular: S1 S2 RRR tachycardia, no murmur Gastrointestinal: soft, non-tender Extremities: 1-2+ pitting edema, + mosquera catheter Neurological: lethargic , non focal Results Result Diagram: 01/19/19 0615 01/20/19 0706 Results 24hrs Laboratory Tests Test 01/19/19 17:26 01/19/19 20:00 01/20/19 00:28 01/20/19 03:53 Bedside Glucose 130 123 103 111 Test 01/20/19 04:30 01/20/19 07:06 01/20/19 08:22 01/20/19 10:00 Urine Color YELLOW Urine Clarity TURBID A Urine pH 5.0 Urine Specific 1.027 [place] Urine Ketones NEGATIVE Urine Nitrite NEGATIVE Urine Bilirubin NEGATIVE Urine NEGATIVE Urobilinogen Urine Leukocyte 3+ H Esterase Urine Microscopic > 182 H RBC Urine Microscopic > 182 H WBC Urine Renal FEW A Epithelial Cells Urine Bacteria MODERATE Urine Yeast MANY A (Budding) Urine Hemoglobin 3+ H Urine Glucose NEGATIVE Urine Total 1+ H Protein Blood Urea 64 H Nitrogen Creatinine 2.73 H Bedside Glucose 120 Blood Gas Blood arterial Specimen Source Arterial Blood 01/20/2019 11:00: Date Drawn 01 AM Arterial Blood pH 7.368 (Temp corrected) Arterial Blood 37.3 pCO2 (Temp correct) Arterial Blood 65.6 L pO2 (Temp corrected) Arterial Blood 21.0 L HCO3 Arterial Blood -3.9 L Base Excess Arterial Blood 90.8 L Oxygen Saturation Francis Test ACCEPTAB Arterial Blood Left Radial Gas Puncture Site Arterial 0.3 Blood Carboxyhemo globin Arterial Blood 0.4 Methemoglobin Blood Gas A-a O2 104.5 H Differential Oxyhemoglobin 90.2 L Percent Blood Gas 37.0 Temperature Blood Gas 20.0 Respiration Rate Blood Gas Actual 26 Respiration Rate Blood Gas MASK - BIPAP Modality FiO2 30.0 Blood Gas 10 Pressure Support Blood Gas 15/5 IPAP/EPAP Ratio Blood Gas RT Notified Whom Blood Gas 01/20/2019 11:12: Notified Time 05 AM Test 01/20/19 13:32 Bedside Glucose 116 Medications Medication Current Medications IV Flush (NS 3 ml) 3 ml PER PROTOCOL IV ; Start 12/28/18 at 04:30 Ondansetron HCl (Zofran Inj) 4 mg Q6H PRN IV NAUSEA/VOMITING Last administered on 01/17/19at 13:34; Admin Dose 4 MG; Start 12/28/18 at 04:30 Miscellaneous Information 1 ea NOTE XX ; Start 12/28/18 at 05:00 Glucose (Glutose) 15 gm Q15M PRN PO DECREASED GLUCOSE; Start 12/28/18 at 05:00 Glucose (Glutose) 22.5 gm Q15M PRN PO DECREASED GLUCOSE; Start 12/28/18 at 05:00 Dextrose (D50w Syringe) 25 ml Q15M PRN IV DECREASED GLUCOSE; Start 12/28/18 at 05:00 Dextrose (D50w Syringe) 50 ml Q15M PRN IV DECREASED GLUCOSE; Start 12/28/18 at 05:00 Glucagon (Glucagen) 1 mg Q15M PRN IM DECREASED GLUCOSE; Start 12/28/18 at 05:00 Glucose (Glutose) 15 gm Q15M PRN BUCCAL DECREASED GLUCOSE; Start 12/28/18 at 05:00 Phenol (Cepastat Lozenge) 1 lozenge Q1H PRN MT COUGH Last administered on 01/03/19at 13:05; Admin Dose 1 LOZENGE; Start 12/28/18 at 17:30 Escitalopram Oxalate (Lexapro) 10 mg DAILY PO Last administered on 01/19/19at 09:06; Admin Dose 10 MG; Start 12/29/18 at 09:30 Clopidogrel Bisulfate (plaVIX) 75 mg DAILY PO Last administered on 01/19/19at 09:06; Admin Dose 75 MG; Start 01/03/19 at 09:00 Morphine Sulfate (morphine) 1 mg Q1H PRN IV SEVERE PAIN LEVEL 7-10 Last administered on 01/19/19at 02:01; Admin Dose 1 MG; Start 01/04/19 at 16:00 Polyethylene Glycol (Miralax) 17 gm BID PRN PO CONSTIPATION Last administered on 01/16/19at 15:37; Admin Dose 17 GM; Start 01/06/19 at 13:00 IV Flush (NS 10 ml) 10 ml PRN PRN IV flush; Start 01/06/19 at 18:30 Bisacodyl (Dulcolax Supp) 10 mg DAILY PRN [place] CONSTIPATION; Start 01/06/19 at 19:00 Albuterol/ Ipratropium (Duoneb) 3 ml Q4H RESP THERAPY PRN HHN SHORTNESS OF BREATH Last administered on 01/11/19at 15:42; Admin Dose 3 ML; Start 01/07/19 at 20:00 IV Flush (NS 10 ml) 10 ml PRN PRN IV IV PROTOCOL; Start 01/12/19 at 18:00 Insulin Aspart (Novolog Insulin Pen) (Adult SC Insulin - Mild Algorithm)... Q4 SC Last administered on 01/17/19at 15:58; Admin Dose 1 UNIT; Start 01/17/19 at 05:00 Piperacillin Sod/ Tazobactam Sod 100 ml @ 25 mls/hr TID@02,10,18 IVPB Last administered on 01/20/19at 10:33; Admin Dose 25 MLS/HR; Start 01/17/19 at 10:00 Famotidine (Pepcid Iv) 20 mg DAILY IV Last administered on 01/20/19at 10:33; Admin Dose 20 MG; Start 01/19/19 at 09:00 Bumetanide (Bumex) 1 mg DAILY PO Last administered on 01/19/19at 09:06; Admin Dose 1 MG; Start 01/19/19 at 09:00 Aspirin (Aspirin) 81 mg DAILY PO ; Start 01/20/19 at 09:00 Lorazepam (Ativan) 0.5 mg Q12H PRN IV AGITATION/ANXIETY; Start 01/19/19 at 22:30 Acetaminophen (Tylenol Tab) 650 mg Q6H PRN PO MILD PAIN(1-3)OR ELEVATED TEMP Last administered on 01/20/19at 06:18; Admin Dose 650 MG; Start 01/20/19 at 04:30 PATTI CALLEJAS MD January 20, 2019 16:27
--- NOTE | 2019-01-20 17:06 | CONS ---
Assessment/Plan Cardiology NYHA: IV Heart Failure Type: Acute Heart Failure Type: Both Assessment/Plan Hospital Course (Demo Recall) 83 yo with STEMI/new LBBB, with severe 2V CAD, culprit lesion is LAD with SHERIN 2 flow on cath, with ischemic cardiomyopathy, lvef 40-45% and severe aortic regurgitation. Course complicated by acute heart failure, acute renal failure, and recurrent chest/epigastric pain. Underwent urgent PCI to mid LAD and staged PCI to RCA. Was recovering, but now developing acute renal insufficiency, and cxr consistent with left sided pneumonia and chf. Impression: Acute PA with new LBBB, s/p PCI/stent to mid LAD and RCA Acute systolic heart failure, EF 40-45% Acute on chronic renal insufficiency, recurrent Severe aortic regurgitation which is chronic per Dr. Archuleta (opt safety and health consultant), and moderate mitral regurgitation Hospital-acquired pneumonia Hypertension, controlled Abdominal pain, improved Severe debility Recommendations: Continue asa, statin, clopidogrel, carvedilol She needs diuresis, antibiotics Renal management as per nephrology Continue high flow oxygen for now Discussed care with pt , with son Angel, and Dr. Cleary and Carlos RN. A total of 40 minutes spent on care today. Consultation Date/Type/Reason Admit Date/Time December 28, 2018 at 03:23 Initial Consult Date 12/28/18 Type of Consult Cardiology Requesting Provider: KRYSTAL BERNARD Date/Time of Note DATE: 01/20/19 TIME: 16:57 24 HR Interval Summary Free Text/Dictation Chart reviewed, spoke with Dr. Cleary and Carlos RN. This am patient was obtunded, hypoxic, required bipap, and now is on high flow O2. at bedside. Exam/Review of Systems Vital Signs Vitals Vital Signs Date Temp Pulse Resp B/P (MAP) Pulse Ox O2 O2 Flow FiO2 Time Delivery Rate 01/20/19 88 26 109/40 96 High Flow 15:00 (63) 01/20/19 4.0 12:00 01/20/19 99.2 12:00 01/20/19 30 11:40 Intake and Output 01/19/19 01/19/19 01/20/19 1515:00 23:00 07:00 IntakeIntake Total 350 ml 450 ml 100 ml OutputOutput Total 250 ml 400 ml BalanceBalance 350 ml 200 ml -300 ml Exam Constitutional: alert (arousable, in no distress) Psych: no complaints, nl mood/affect Head: normocephalic, atraumatic Eyes: EOMI, nl lids ENMT: nl external ears & nose Neck: jvd (JVP elevated); No bruits Respiratory: diminished breath sounds Cardiovascular: regular rate and rhythm, murmurs/extra sounds Gastrointestinal: soft, non-tender Extremities: edema (trace) Skin: nl turgor, rash or lesions Labs Result Diagram: 01/19/19 0615 01/20/19 0706 Results 24hrs Laboratory Tests Test 01/19/19 17:26 01/19/19 20:00 01/20/19 00:28 01/20/19 03:53 Bedside Glucose 130 123 103 111 Test 01/20/19 04:30 01/20/19 07:06 01/20/19 08:22 01/20/19 10:00 Urine Color YELLOW Urine Clarity TURBID A Urine pH 5.0 Urine Specific 1.027 [place] Urine Ketones NEGATIVE Urine Nitrite NEGATIVE Urine Bilirubin NEGATIVE Urine NEGATIVE Urobilinogen Urine Leukocyte 3+ H Esterase Urine Microscopic > 182 H RBC Urine Microscopic > 182 H WBC Urine Renal FEW A Epithelial Cells Urine Bacteria MODERATE Urine Yeast MANY A (Budding) Urine Hemoglobin 3+ H Urine Glucose NEGATIVE Urine Total 1+ H Protein Blood Urea 64 H Nitrogen Creatinine 2.73 H Bedside Glucose 120 Blood Gas Blood arterial Specimen Source Arterial Blood 01/20/2019 11:00: Date Drawn 01 AM Arterial Blood pH 7.368 (Temp corrected) Arterial Blood 37.3 pCO2 (Temp correct) Arterial Blood 65.6 L pO2 (Temp corrected) Arterial Blood 21.0 L HCO3 Arterial Blood -3.9 L Base Excess Arterial Blood 90.8 L Oxygen Saturation Francis Test ACCEPTAB Arterial Blood Left Radial Gas Puncture Site Arterial 0.3 Blood Carboxyhemo globin Arterial Blood 0.4 Methemoglobin Blood Gas A-a O2 104.5 H Differential Oxyhemoglobin 90.2 L Percent Blood Gas 37.0 Temperature Blood Gas 20.0 Respiration Rate Blood Gas Actual 26 Respiration Rate Blood Gas MASK - BIPAP Modality FiO2 30.0 Blood Gas 10 Pressure Support Blood Gas 15/5 IPAP/EPAP Ratio Blood Gas RT Notified Whom Blood Gas 01/20/2019 11:12: Notified Time 05 AM Test 01/20/19 13:32 Bedside Glucose 116 Medications Medications Current Medications IV Flush (NS 3 ml) 3 ml PER PROTOCOL IV ; Start 12/28/18 at 04:30 Ondansetron HCl (Zofran Inj) 4 mg Q6H PRN IV NAUSEA/VOMITING Last administered on 01/17/19at 13:34; Admin Dose 4 MG; Start 12/28/18 at 04:30 Miscellaneous Information 1 ea NOTE XX ; Start 12/28/18 at 05:00 Glucose (Glutose) 15 gm Q15M PRN PO DECREASED GLUCOSE; Start 12/28/18 at 05:00 Glucose (Glutose) 22.5 gm Q15M PRN PO DECREASED GLUCOSE; Start 12/28/18 at 05:00 Dextrose (D50w Syringe) 25 ml Q15M PRN IV DECREASED GLUCOSE; Start 12/28/18 at 05:00 Dextrose (D50w Syringe) 50 ml Q15M PRN IV DECREASED GLUCOSE; Start 12/28/18 at 05:00 Glucagon (Glucagen) 1 mg Q15M PRN IM DECREASED GLUCOSE; Start 12/28/18 at 05:00 Glucose (Glutose) 15 gm Q15M PRN BUCCAL DECREASED GLUCOSE; Start 12/28/18 at 05:00 Phenol (Cepastat Lozenge) 1 lozenge Q1H PRN MT COUGH Last administered on 01/03/19at 13:05; Admin Dose 1 LOZENGE; Start 12/28/18 at 17:30 Escitalopram Oxalate (Lexapro) 10 mg DAILY PO Last administered on 01/19/19at 09:06; Admin Dose 10 MG; Start 12/29/18 at 09:30 Clopidogrel Bisulfate (plaVIX) 75 mg DAILY PO Last administered on 01/19/19at 09:06; Admin Dose 75 MG; Start 01/03/19 at 09:00 Morphine Sulfate (morphine) 1 mg Q1H PRN IV SEVERE PAIN LEVEL 7-10 Last administered on 01/19/19at 02:01; Admin Dose 1 MG; Start 01/04/19 at 16:00 Polyethylene Glycol (Miralax) 17 gm BID PRN PO CONSTIPATION Last administered on 01/16/19at 15:37; Admin Dose 17 GM; Start 01/06/19 at 13:00 IV Flush (NS 10 ml) 10 ml PRN PRN IV flush; Start 01/06/19 at 18:30 Bisacodyl (Dulcolax Supp) 10 mg DAILY PRN [place] CONSTIPATION; Start 01/06/19 at 19:00 Albuterol/ Ipratropium (Duoneb) 3 ml Q4H RESP THERAPY PRN HHN SHORTNESS OF BREATH Last administered on 01/11/19at 15:42; Admin Dose 3 ML; Start 01/07/19 at 20:00 IV Flush (NS 10 ml) 10 ml PRN PRN IV IV PROTOCOL; Start 01/12/19 at 18:00 Insulin Aspart (Novolog Insulin Pen) (Adult SC Insulin - Mild Algorithm)... Q4 SC Last administered on 01/17/19 15:58; Admin Dose 1 UNIT; Start 01/17/19 at 05:00 Piperacillin Sod/ Tazobactam Sod 100 ml @ 25 mls/hr TID@02,10,18 IVPB Last administered on 01/20/19 10:33; Admin Dose 25 MLS/HR; Start 01/17/19 at 10:00 Famotidine (Pepcid Iv) 20 mg DAILY IV Last administered on 01/20/19 10:33; Admin Dose 20 MG; Start 01/19/19 at 09:00 Bumetanide (Bumex) 1 mg DAILY PO Last administered on 01/19/19at 09:06; Admin Dose 1 MG; Start 01/19/19 at 09:00 Aspirin (Aspirin) 81 mg DAILY PO ; Start 01/20/19 at 09:00 Lorazepam (Ativan) 0.5 mg Q12H PRN IV AGITATION/ANXIETY; Start 01/19/19 at 22:30 Acetaminophen (Tylenol Tab) 650 mg Q6H PRN PO MILD PAIN(1-3)OR ELEVATED TEMP Last administered on 01/20/19 06:18; Admin Dose 650 MG; Start 01/20/19 at 04:30 RODRIGUEZ GARZA January 20, 2019 17:06
[2019-01-20] MEDS ORDERED: BUMETANIDE 1 MG INJ IV ONE (21:00)
[2019-01-21] VITALS (74 sets, daily range): BP systolic 68–124; BP diastolic 29–110; PULSE 80–110; RESP 10–31
[2019-01-21] MEDS: Insulin NOVOLOG SS MILD Algorithm (NPO/TPN/ENTERAL FEEDS) SC SCH ×5 (01:00→19:15)
[2019-01-21] MEDS: PIPER-TAZO 3.375 GM IV (PMX) 100 ML IVPB SCH ×3 (02:18→19:10)
[2019-01-21] MEDS: FLUCONAZOLE 200 MG (PMX) 100 ML IVPB SCH ×2 (02:18→21:28)
--- NOTE | 2019-01-21 04:49 | EN ---
Date/Time of Note Date/Time of Note DATE: 01/21/19 TIME: 04:46 Event Note Medicine Medicine Event Note CODE BLUE note Code was called and the patient is patient was noted to be bradycardic followed by going into asystole. CPR was started with high-quality chest compressions. Patient was given multiple doses of epinephrine along with calcium and bicarb. Please see chart for full details. Patient was intubated by the ED physician and the code was also run by him. Thank code started at 4:18 AM and return to spontaneous circulation at 4:27 AM. was present at the bedside. After discussion with the he decided to make the patient DNR. Hypothermia protocol was not initiated as patient was made a DNR. We will continue further management at the current time. The will discuss with his son regarding further goals of care. ADIEL SALGUERO January 21, 2019 04:49
[2019-01-21] MEDS ORDERED: NORepinephrine 8MG/250 ML (PMX 0 ML ONE (05:25)
--- NOTE | 2019-01-21 05:50 | CONS ---
DATE OF ADMISSION: 12/28/2018 DATE OF CONSULTATION: Infectious disease consultation for Dr. Prince Joyner. REQUESTING PHYSICIAN: ____ MD Norberto. HISTORY OF PRESENT ILLNESS: The patient is an 83-year-old white female who was admitted on 9 with a chief complaint of acute coronary syndrome. The patient was found to have occlusion of the left anterior descending coronary artery at its source and also had disease in the right coronary art cristine as well. She had stenting and unblocking of this artery and was waiting transfer to a center to obtain aortic valve replacement. She, early in the course of her status developed desquamated dermat itis involving her back, buttocks and both lower extremities, which she proceeded to go through the e volution and finally clear up from. On the , she was noted to develop congestive heart failure, partly because she had an ejection fraction of 35% approximately. Her white blood cell count most re cently is 18,000, 93 polys, 3 lymphs, 2 monocytes. The chest x-ray obtained on 01/19/2019 revealed c ongestive heart failure, right upper lobe infiltrate and a left lower lobe infiltrate. At this time, it was interpreted that there was improvement in the left upper lobe infiltrate and left lower lobe infiltrate. Her urinalysis revealed a specific gravity 1.027, +3 leukocyte esterase, greater than 18 2 WBCs and greater than 182 RBCs. There were noted to be many yeasts. She had culture and sensitivi ty of her stool, which revealed coliform. Stool for Clostridium difficile was negative. There were 2 blood cultures positive for coagulase negative staph, which was probably contaminants as the 2 othe r blood cultures which were negative so far. She had a negative MRSA screen. Meanwhile, the patient had begun treatment with Zosyn and previously ceftriaxone. PHYSICAL EXAMINATION GENERAL: Reveals an obese, fair skinned white female with a positive pressure oxygen mask, lying in bed with her left hand swollen but not red and the right hand is also swollen but only +1. VITAL SIGNS: Temperature of 98.2 orally, pulse 93, respiratory rate 29, pulse oximetry 95%, FiO2 35% . HEENT: The mucous membranes of mouth are thickened. NECK: Supple. CHEST: Clear on the right side, but diminished breath sounds on the left side. There is no wheezing or rhonchi. HEART: Regular. ABDOMEN: Obese and soft. No palpable organs or tenderness. EXTREMITIES: Reveal edema of the feet, +1. SKIN: Generally has improved with little remaining desquamation. INITIAL IMPRESSION: Systemic inflammatory response, yeast urinary tract infection and aspiration pne umonia in left lower lobe and left upper lobe, hypertension, congestive heart failure, recent acute c oronary syndrome with a ST segment elevation myocardial infarction in the proximal left anterior desc ending coronary artery, cardiomyopathy, obesity, diabetes and gout. RECOMMENDATIONS: Continue present Zosyn as the patient appears to be responding. She has dehydratio n and it would be appropriate to give her more fluids of course cautiously and I also addended Difluc an 200 mg IV for approximately 14 days and hopefully getting her Taveras catheter out. Dictated By: Margarette SEARS MD for PRINCE JOYNER MD EC/NTS Conf#: [id number] DID#: [id number] CC: FIOR NEW MD; PRINCE JOYNER MD;*[facility]*
--- NOTE | 2019-01-21 06:00 | EN ---
Date/Time of Note Date/Time of Note DATE: 01/21/19 TIME: 05:58 ER Progress Note Was called to the intensive care unit for CODE BLUE. ACLS was in progress. Apparently the patient became suddenly asystole. CPR was initiated. I was able to intubate the patient and successfully resuscitate the patient. Hospitalist was bedside on continued care. Endotracheal Intubation by me: Pre assessment performed. See preceding note for details. Pre-oxygenation performed with 100% oxygen RSI: Performed w/o complication or hypoxic events. Medications as ordered. Blade: [Mac 4] ET Tube: 7.5 cm Depth: 3 cm at the lip Intubation confirmed by colorimetric CO2, equal breath sounds, quiet over the stomach. Chest X-ray 1V Interpreted by me: 2 cm above the lalito ET tube. Normal soft tissue, No pneumothorax. Critical Care: Time: 35 minutes, independent of any separately billable procedural time Treatments/Evaluations: Close monitoring and treatment of unstable vital signs, cardiorespiratory, and neurologic status, while maintaining tight balance of fluid, respiratory, and cardiac interventions. FIOR JACKSON January 21, 2019 06:00
--- NOTE | 2019-01-21 08:13 | CONS ---
Assessment/Plan Assessment/Plan Assessment/Plan (Daily) 1. Acute kidney injury on CKD III 2/2 Hemodynamics from CHF + NSTEMI - worsening renal failure with oliguria 2. Hyperkalemia 3. Hypernatremia -improved to normal 4. acute NSTEMI s/p LHC showed multivessel obstructive CAD - s/p Successful PTCA and stenting of proximal left anterior descending artery using a 3 x 20 mm Synergy drug-eluting stent on 01/04/19- s/p LHC with proximal RCA stenting on 5. CAD multivessel obstructive 6. Anemia of Chronic disease s/p 2 U PRBC on 01/07/19 7. Acute Hypoxemic respiratory failure intuabted on ventilator 8. s/p cardiopulmonary arrest Plan: BUN/Cr went upto 70/3.4, K 5.6, HCo3 16 on ABG- - continue HCO3 drip at 100 cc/hr, will start pt on Bumex 1mg/hr x 12 hr then reassess , BMP at 8 pm to inform to me s/p cardiopulmonary arrest overnight , intubated, now in ICU d/w family at bedside, pt will be poor candidate for renal replacement therapy due to age and comorbidities- explained to family in detail, pt is made DNR and will wait one more day to decide for comfort care tomorrow will follow up Consultation Date/Type/Reason Admit Date/Time December 28, 2018 at 03:23 Initial Consult Date 12/28/18 Type of Consult NEPHROLOGY Requesting Provider: KRYSTAL BERNARD Date/Time of Note DATE: 01/21/19 TIME: 08:13 24 HR Interval Summary Free Text/Dictation pt had a code blue today AM with respiratory distress, s/p CPR and intubated on ventilator , pt remained critically ill, BUn/Cr worsenign urine output dropping down Exam/Review of Systems Exam Vitals Vital Signs Date Temp Pulse Resp B/P (MAP) Pulse Ox O2 O2 Flow FiO2 Time Delivery Rate 01/21/19 105 27 68/29 (42) 78 Mechanical 07:00 Ventilator 01/21/19 6.0 06:45 01/21/19 100 05:20 01/21/19 98.3 00:00 Intake and Output 01/20/19 01/20/19 01/21/19 1515:00 23:00 07:00 IntakeIntake Total 100 ml 200 ml OutputOutput Total 120 ml 95 ml 0 ml BalanceBalance -120 ml 5 ml 200 ml Constitutional: distress (severe ) Head: normocephalic ENMT: other (ET tube, + NG tube ) Neck: supple, non-tender, jvd Respiratory: diminished breath sounds, other (Bilateral Coarse BS+) Cardiovascular: other (S1 S2 tachycardia, no murmur ) Gastrointestinal: soft, non-tender Extremities: edema (2-3+ pitting edema ) Neurological: other (not cooperative for exam due to being on ventilator ) Results Result Diagram: 01/21/19 0439 01/21/19 0439 Results 24hrs Laboratory Tests Test 01/20/19 08:22 01/20/19 10:00 01/20/19 13:32 01/20/19 17:15 Bedside Glucose 120 116 148 Blood Gas Blood arterial Specimen Source Arterial Blood 01/20/2019 11:00 Date Drawn :01 AM Arterial Blood 7.368 pH (Temp corrected) Arterial Blood 37.3 pCO2 (Temp correct) Arterial Blood 65.6 L pO2 (Temp corrected) Arterial Blood 21.0 L HCO3 Arterial Blood -3.9 L Base Excess Arterial Blood 90.8 L Oxygen Saturatio n Francis Test ACCEPTAB Arterial Blood Left Radial Gas Puncture Site Arterial 0.3 Blood Carboxyhem oglobin Arterial Blood 0.4 Methemoglobin Blood Gas A-a O2 104.5 H Differential Oxyhemoglobin 90.2 L Percent Blood Gas 37.0 Temperature Blood Gas 20.0 Respiration Rate Blood Gas Actual 26 Respiration Rate Blood Gas MASK - BIPAP Modality FiO2 30.0 Blood Gas 10 Pressure Support Blood Gas 15/5 IPAP/EPAP Ratio Blood Gas RT Notified Whom Blood Gas 01/20/2019 11:12 Notified Time :05 AM Test 01/20/19 19:37 01/20/19 19:56 01/20/19 20:36 01/21/19 01:39 Troponin I 0.419 *H Blood Gas Blood arterial Specimen Source Arterial Blood 01/20/2019 8:10: Date Drawn 21 PM Arterial Blood 7.400 pH (Temp corrected) Arterial Blood 34.2 L pCO2 (Temp correct) Arterial Blood 47.6 *L pO2 (Temp corrected) Arterial Blood 20.7 L HCO3 Arterial Blood -3.5 L Base Excess Arterial Blood 79.7 L Oxygen Saturatio n Francis Test N/A Arterial Blood Right Brachial Gas Puncture Site Arterial 0.3 Blood Carboxyhem oglobin Arterial Blood 0.2 Methemoglobin Blood Gas A-a O2 631.2 H Differential Oxyhemoglobin 79.3 L Percent Blood Gas 37.0 Temperature Blood Gas Actual 37 Respiration Rate Blood Gas MASK - BIPAP Modality FiO2 100.0 Blood Gas 10 Pressure Support Blood Gas 20/10 IPAP/EPAP Ratio Blood Gas Colby SALGUERO MD Critical Value Read Back Blood Gas MR Notified Whom Blood Gas 01/20/2019 8:17: Notified Time 35 PM Bedside Glucose 124 124 Test 01/21/19 04:21 01/21/19 04:39 01/21/19 04:42 01/21/19 05:08 Bedside Glucose 113 White Blood 23.6 #H Count Red Blood Count 2.83 L Hemoglobin 8.6 L Hematocrit 28.4 L Mean Corpuscular 100.4 Volume Mean Corpuscular 30.4 Hemoglobin Mean Corpuscular 30.3 L Hemoglobin Devika nt Red Cell 19.3 H Distribution Width Platelet Count 179 # Mean Platelet 10.9 H Volume Immature 2.100 H Granulocytes % Neutrophils % 79.3 H Lymphocytes % 14.8 L Monocytes % 2.6 Eosinophils % 0.8 Basophils % 0.4 Nucleated Red 0.1 H Blood Cells % Immature 0.490 H Granulocytes # Neutrophils # 18.7 H Lymphocytes # 3.5 H Monocytes # 0.6 Eosinophils # 0.2 Basophils # 0.1 Nucleated Red 0.0 Blood Cells # Sodium Level 149 H Potassium Level 5.6 H Chloride Level 112 H Carbon Dioxide 22 Level Anion Gap 15 #H Blood Urea 70 H Nitrogen Creatinine 3.40 H Est Glomerular Filtrat Rate mL/min Glucose Level 116 Calcium Level 10.5 H Phosphorus Level 9.8 H Magnesium Level 2.3 Blood Gas Blood arterial Specimen Source Arterial Blood 01/21/2019 4:40: Date Drawn 21 AM Arterial Blood 7.254 *L pH (Temp corrected) Arterial Blood 38.3 pCO2 (Temp correct) Arterial Blood 84.0 pO2 (Temp corrected) Arterial Blood 16.6 L HCO3 Arterial Blood -9.8 L Base Excess Arterial Blood 93.3 L Oxygen Saturatio n Francis Test ACCEPTAB Arterial Blood Right Brachial Gas Puncture Site Arterial 0.3 Blood Carboxyhem oglobin Arterial Blood 0.5 Methemoglobin Blood Gas A-a O2 590.7 H Differential Oxyhemoglobin 92.6 L Percent Blood Gas 37.0 Temperature Blood Gas 18.0 Respiration Rate Blood Gas Actual 18 Respiration Rate Blood Gas VENT - AC Modality FiO2 100.0 Blood Gas Tidal 500.0 Volume Blood Gas Low 5.0 PEEP Setting Blood Gas 32.0 Inspiratory Pressure Blood Gas HT RN Critical Value Read Back Blood Gas JJordan Notified Whom Blood Gas 01/21/2019 5:12: Notified Time 57 AM Lactic Acid 5.1 *H Level Creatine Kinase 129 Creatine Kinase 2.7 Index Creatinine 3.42 H Kinase MB (Mass) Troponin I 0.400 *H Medications Medication Current Medications IV Flush (NS 3 ml) 3 ml PER PROTOCOL IV ; Start 12/28/18 at 04:30 Ondansetron HCl (Zofran Inj) 4 mg Q6H PRN IV NAUSEA/VOMITING Last administered on 01/17/19at 13:34; Admin Dose 4 MG; Start 12/28/18 at 04:30 Miscellaneous Information 1 ea NOTE XX ; Start 12/28/18 at 05:00 Glucose (Glutose) 15 gm Q15M PRN PO DECREASED GLUCOSE; Start 12/28/18 at 05:00 Glucose (Glutose) 22.5 gm Q15M PRN PO DECREASED GLUCOSE; Start 12/28/18 at 05:00 Dextrose (D50w Syringe) 25 ml Q15M PRN IV DECREASED GLUCOSE; Start 12/28/18 at 05:00 Dextrose (D50w Syringe) 50 ml Q15M PRN IV DECREASED GLUCOSE; Start 12/28/18 at 05:00 Glucagon (Glucagen) 1 mg Q15M PRN IM DECREASED GLUCOSE; Start 12/28/18 at 05:00 Glucose (Glutose) 15 gm Q15M PRN BUCCAL DECREASED GLUCOSE; Start 12/28/18 at 05:00 Phenol (Cepastat Lozenge) 1 lozenge Q1H PRN MT COUGH Last administered on 01/03/19at 13:05; Admin Dose 1 LOZENGE; Start 12/28/18 at 17:30 Escitalopram Oxalate (Lexapro) 10 mg DAILY PO Last administered on 01/19/19at 09:06; Admin Dose 10 MG; Start 12/29/18 at 09:30 Clopidogrel Bisulfate (plaVIX) 75 mg DAILY PO Last administered on 01/19/19 09:06; Admin Dose 75 MG; Start 01/03/19 at 09:00 Morphine Sulfate (morphine) 1 mg Q1H PRN IV SEVERE PAIN LEVEL 7-10 Last administered on 01/19/19 02:01; Admin Dose 1 MG; Start 01/04/19 at 16:00 Polyethylene Glycol (Miralax) 17 gm BID PRN PO CONSTIPATION Last administered on 01/16/19 15:37; Admin Dose 17 GM; Start 01/06/19 at 13:00 IV Flush (NS 10 ml) 10 ml PRN PRN IV flush; Start 01/06/19 at 18:30 Bisacodyl (Dulcolax Supp) 10 mg DAILY PRN [place] CONSTIPATION; Start 01/06/19 at 19:00 Albuterol/ Ipratropium (Duoneb) 3 ml Q4H RESP THERAPY PRN HHN SHORTNESS OF BREATH Last administered on 01/11/19 15:42; Admin Dose 3 ML; Start 01/07/19 at 20:00 IV Flush (NS 10 ml) 10 ml PRN PRN IV IV PROTOCOL; Start 01/12/19 at 18:00 Insulin Aspart (Novolog Insulin Pen) (Adult SC Insulin - Mild Algorithm)... Q4 SC Last administered on 01/20/19 17:33; Admin Dose 1 UNIT; Start 01/17/19 at 05:00 Piperacillin Sod/ Tazobactam Sod 100 ml @ 25 mls/hr TID@02,10,18 IVPB Last administered on 01/21/19 02:18; Admin Dose 25 MLS/HR; Start 01/17/19 at 10:00 Famotidine (Pepcid Iv) 20 mg DAILY IV Last administered on 01/20/19 10:33; Admin Dose 20 MG; Start 01/19/19 at 09:00 Bumetanide (Bumex) 1 mg DAILY PO Last administered on 01/19/19 09:06; Admin Dose 1 MG; Start 01/19/19 at 09:00 Aspirin (Aspirin) 81 mg DAILY PO ; Start 01/20/19 at 09:00 Lorazepam (Ativan) 0.5 mg Q12H PRN IV AGITATION/ANXIETY; Start 01/19/19 at 22:30 Acetaminophen (Tylenol Tab) 650 mg Q6H PRN PO MILD PAIN(1-3)OR ELEVATED TEMP Last administered on 01/20/19at 06:18; Admin Dose 650 MG; Start 01/20/19 at 04:30 Fluconazole 100 ml @ 100 mls/hr Q24H IVPB Last administered on 01/21/19at 02:18; Admin Dose 100 MLS/HR; Start 01/20/19 at 22:30; Stop 02/03/19 at 12:00 PATTI CALLEJAS MD January 21, 2019 08:13
[2019-01-21] MEDS ORDERED: NA POLYST SULFON 15 GM/60 ML BTL PO STA (08:15)
[2019-01-21] MEDS: FAMOTIDINE 20 MG INJ IV SCH (09:00)
[2019-01-21] MEDS ORDERED: MIDAZOLAM 1 MG/ML 2 ML INJ IV ONE (09:00)
--- NOTE | 2019-01-21 09:15 | CONS ---
Consult Date/Type/Reason Admit Date/Time December 28, 2018 at 03:23 Initial Consult Date 01/03/19 Type of Consult Pulmonary Requesting Provider: KRYSTAL BERNARD Date/Time of Note DATE: 01/21/19 TIME: 09:13 Subjective cardia pulmonary arrest this morning requiring emergent intubation and mechanical ventilation. Objective Vital Signs Date Temp Pulse Resp B/P (MAP) Pulse Ox O2 O2 Flow FiO2 Time Delivery Rate 01/21/19 105 27 68/29 (42) 78 Mechanical 07:00 Ventilator 01/21/19 6.0 06:45 01/21/19 100 05:20 01/21/19 98.3 00:00 Intake and Output 01/20/19 01/20/19 01/21/19 1515:00 23:00 07:00 IntakeIntake Total 100 ml 200 ml OutputOutput Total 120 ml 95 ml 5 ml BalanceBalance -120 ml 5 ml 195 ml Exam PHYSICAL EXAMINATION: VITAL SIGNS: Orally intubated. As above NECK: Supple. No JVD or lymphadenopathy. CARDIAC: S1, S2, no added sounds or murmurs. CHEST: Diminished air entry bilaterally. ABDOMEN: Soft, nontender. No guarding or rebound. EXTREMITIES: No cyanosis, clubbing, or edema. NEUROLOGIC: Generalized weakness. Vent Setting Ventilator Support Mode: AC Fraction of Inspired Oxygen pe: 100 Positive End Expiratory Pressu: 5.0 Results/Medications Result Diagram: 01/21/19 0439 01/21/19 0439 Results 24 hrs Laboratory Tests Test 01/20/19 10:00 01/20/19 13:32 01/20/19 17:15 01/20/19 19:37 Blood Gas Blood arterial Specimen Source Arterial Blood 01/20/2019 11:00 Date Drawn :01 AM Arterial Blood 7.368 pH (Temp corrected) Arterial Blood 37.3 pCO2 (Temp correct) Arterial Blood 65.6 L pO2 (Temp corrected) Arterial Blood 21.0 L HCO3 Arterial Blood -3.9 L Base Excess Arterial Blood 90.8 L Oxygen Saturatio n Francis Test ACCEPTAB Arterial Blood Left Radial Gas Puncture Site Arterial 0.3 Blood Carboxyhem oglobin Arterial Blood 0.4 Methemoglobin Blood Gas A-a O2 104.5 H Differential Oxyhemoglobin 90.2 L Percent Blood Gas 37.0 Temperature Blood Gas 20.0 Respiration Rate Blood Gas Actual 26 Respiration Rate Blood Gas MASK - BIPAP Modality FiO2 30.0 Blood Gas 10 Pressure Support Blood Gas 15/5 IPAP/EPAP Ratio Blood Gas RT Notified Whom Blood Gas 01/20/2019 11:12 Notified Time :05 AM Bedside Glucose 116 148 Troponin I 0.419 *H Test 01/20/19 19:56 01/20/19 20:36 01/21/19 01:39 01/21/19 04:21 Blood Gas Blood arterial Specimen Source Arterial Blood 01/20/2019 8:10: Date Drawn 21 PM Arterial Blood 7.400 pH (Temp corrected) Arterial Blood 34.2 L pCO2 (Temp correct) Arterial Blood 47.6 *L pO2 (Temp corrected) Arterial Blood 20.7 L HCO3 Arterial Blood -3.5 L Base Excess Arterial Blood 79.7 L Oxygen Saturatio n Francis Test N/A Arterial Blood Right Brachial Gas Puncture Site Arterial 0.3 Blood Carboxyhem oglobin Arterial Blood 0.2 Methemoglobin Blood Gas A-a O2 631.2 H Differential Oxyhemoglobin 79.3 L Percent Blood Gas 37.0 Temperature Blood Gas Actual 37 Respiration Rate Blood Gas MASK - BIPAP Modality FiO2 100.0 Blood Gas 10 Pressure Support Blood Gas 20/10 IPAP/EPAP Ratio Blood Gas Colby SALGUERO MD Critical Value Read Back Blood Gas MR Notified Whom Blood Gas 01/20/2019 8:17: Notified Time 35 PM Bedside Glucose 124 124 113 Test 01/21/19 04:39 01/21/19 04:42 01/21/19 05:08 White Blood 23.6 #H Count Red Blood Count 2.83 L Hemoglobin 8.6 L Hematocrit 28.4 L Mean Corpuscular 100.4 Volume Mean Corpuscular 30.4 Hemoglobin Mean Corpuscular 30.3 L Hemoglobin Devika nt Red Cell 19.3 H Distribution Width Platelet Count 179 # Mean Platelet 10.9 H Volume Immature 2.100 H Granulocytes % Neutrophils % 79.3 H Lymphocytes % 14.8 L Monocytes % 2.6 Eosinophils % 0.8 Basophils % 0.4 Nucleated Red 0.1 H Blood Cells % Immature 0.490 H Granulocytes # Neutrophils # 18.7 H Lymphocytes # 3.5 H Monocytes # 0.6 Eosinophils # 0.2 Basophils # 0.1 Nucleated Red 0.0 Blood Cells # Sodium Level 149 H Potassium Level 5.6 H Chloride Level 112 H Carbon Dioxide 22 Level Anion Gap 15 #H Blood Urea 70 H Nitrogen Creatinine 3.40 H Est Glomerular Filtrat Rate mL/min Glucose Level 116 Calcium Level 10.5 H Phosphorus Level 9.8 H Magnesium Level 2.3 Blood Gas Blood arterial Specimen Source Arterial Blood 01/21/2019 4:40: Date Drawn 21 AM Arterial Blood 7.254 *L pH (Temp corrected) Arterial Blood 38.3 pCO2 (Temp correct) Arterial Blood 84.0 pO2 (Temp corrected) Arterial Blood 16.6 L HCO3 Arterial Blood -9.8 L Base Excess Arterial Blood 93.3 L Oxygen Saturatio n Francis Test ACCEPTAB Arterial Blood Right Brachial Gas Puncture Site Arterial 0.3 Blood Carboxyhem oglobin Arterial Blood 0.5 Methemoglobin Blood Gas A-a O2 590.7 H Differential Oxyhemoglobin 92.6 L Percent Blood Gas 37.0 Temperature Blood Gas 18.0 Respiration Rate Blood Gas Actual 18 Respiration Rate Blood Gas VENT - AC Modality FiO2 100.0 Blood Gas Tidal 500.0 Volume Blood Gas Low 5.0 PEEP Setting Blood Gas 32.0 Inspiratory Pressure Blood Gas HT RN Critical Value Read Back Blood Gas Douglas Notified Whom Blood Gas 01/21/2019 5:12: Notified Time 57 AM Lactic Acid 5.1 *H Level Creatine Kinase 129 Creatine Kinase 2.7 Index Creatinine 3.42 H Kinase MB (Mass) Troponin I 0.400 *H Medications Current Medications IV Flush (NS 3 ml) 3 ml PER PROTOCOL IV ; Start 12/28/18 at 04:30 Ondansetron HCl (Zofran Inj) 4 mg Q6H PRN IV NAUSEA/VOMITING Last administered on 01/17/19at 13:34; Admin Dose 4 MG; Start 12/28/18 at 04:30 Miscellaneous Information 1 ea NOTE XX ; Start 12/28/18 at 05:00 Glucose (Glutose) 15 gm Q15M PRN PO DECREASED GLUCOSE; Start 12/28/18 at 05:00 Glucose (Glutose) 22.5 gm Q15M PRN PO DECREASED GLUCOSE; Start 12/28/18 at 05:00 Dextrose (D50w Syringe) 25 ml Q15M PRN IV DECREASED GLUCOSE; Start 12/28/18 at 05:00 Dextrose (D50w Syringe) 50 ml Q15M PRN IV DECREASED GLUCOSE; Start 12/28/18 at 05:00 Glucagon (Glucagen) 1 mg Q15M PRN IM DECREASED GLUCOSE; Start 12/28/18 at 05:00 Glucose (Glutose) 15 gm Q15M PRN BUCCAL DECREASED GLUCOSE; Start 12/28/18 at 05:00 Phenol (Cepastat Lozenge) 1 lozenge Q1H PRN MT COUGH Last administered on 01/03/19 13:05; Admin Dose 1 LOZENGE; Start 12/28/18 at 17:30 Escitalopram Oxalate (Lexapro) 10 mg DAILY PO Last administered on 01/19/19 09:06; Admin Dose 10 MG; Start 12/29/18 at 09:30 Clopidogrel Bisulfate (plaVIX) 75 mg DAILY PO Last administered on 01/19/19 09:06; Admin Dose 75 MG; Start 01/03/19 at 09:00 Morphine Sulfate (morphine) 1 mg Q1H PRN IV SEVERE PAIN LEVEL 7-10 Last administered on 01/19/19 02:01; Admin Dose 1 MG; Start 01/04/19 at 16:00 Polyethylene Glycol (Miralax) 17 gm BID PRN PO CONSTIPATION Last administered on 01/16/19 15:37; Admin Dose 17 GM; Start 01/06/19 at 13:00 IV Flush (NS 10 ml) 10 ml PRN PRN IV flush; Start 01/06/19 at 18:30 Bisacodyl (Dulcolax Supp) 10 mg DAILY PRN [place] CONSTIPATION; Start 01/06/19 at 19:00 Albuterol/ Ipratropium (Duoneb) 3 ml Q4H RESP THERAPY PRN HHN SHORTNESS OF BREATH Last administered on 01/11/19 15:42; Admin Dose 3 ML; Start 01/07/19 at 20:00 IV Flush (NS 10 ml) 10 ml PRN PRN IV IV PROTOCOL; Start 01/12/19 at 18:00 Insulin Aspart (Novolog Insulin Pen) (Adult SC Insulin - Mild Algorithm)... Q4 SC Last administered on 01/20/19 17:33; Admin Dose 1 UNIT; Start 01/17/19 at 05:00 Piperacillin Sod/ Tazobactam Sod 100 ml @ 25 mls/hr TID@02,10,18 IVPB Last administered on 5/29/19at 02:18; Admin Dose 25 MLS/HR; Start 01/17/19 at 10:00 Famotidine (Pepcid Iv) 20 mg DAILY IV Last administered on 01/20/19at 10:33; Admin Dose 20 MG; Start 01/19/19 at 09:00 Aspirin (Aspirin) 81 mg DAILY PO ; Start 01/20/19 at 09:00 Lorazepam (Ativan) 0.5 mg Q12H PRN IV AGITATION/ANXIETY; Start 01/19/19 at 22:30 Acetaminophen (Tylenol Tab) 650 mg Q6H PRN PO MILD PAIN(1-3)OR ELEVATED TEMP Last administered on 01/20/19at 06:18; Admin Dose 650 MG; Start 01/20/19 at 04:30 Fluconazole 100 ml @ 100 mls/hr Q24H IVPB Last administered on 01/21/19at 02:18; Admin Dose 100 MLS/HR; Start 01/20/19 at 22:30; Stop 02/03/19 at 12:00 Bumetanide 12 mg/ Dextrose/Water 120 ml @ 10 mls/hr Q12H ONCE IV ; Start 01/21/19 at 09:30; Stop 01/21/19 at 21:29 Fentanyl 100 ml @ 2.5 mls/hr TITRATE IV ; Start 01/21/19 at 09:00 Sodium Bicarbonate 100 meq/Dextrose/ Sodium Chloride 1,100 ml @ 100 mls/hr Q11H IV ; Start 01/21/19 at 10:00 Assessment/Plan Hospital Course (Demo Recall) IMPRESSION: 1. Worsening encephalopathy, likely secondary to volume overload and hypoxemia. 2. Progressive renal failure previously contrast nephropathy. 3. Coronary artery disease status post stent placement x2. Status post cardiopulmonary arrest 4. Small-bowel obstruction with NG tube in place. PLAN: 1. continue mechanical ventilation adjust for respiratory acidosis metabolic acidosis. 2. IV fluids and intravenous bicarb. 3. Bumex drip per nephrology 4. Nasogastric tube to suction. 5. Vasopressors as needed Critical care time 40 minutes. Overall prognosis extremely poor Family informed about goals of care CODE STATUS changed to DNR. Trial of Bumex drip today if patient does not respond patient's family may transition to comfort care. TONE REID MD, [facility] January 21, 2019 09:15
--- NOTE | 2019-01-21 09:25 | CONS ---
Assessment/Plan Cardiology NYHA: IV Heart Failure Type: Acute Heart Failure Type: Both Assessment/Plan Hospital Course (Demo Recall) 83 yo with STEMI/new LBBB, with severe 2V CAD, culprit lesion is LAD with SHERIN 2 flow on cath, with ischemic cardiomyopathy, lvef 40-45% and severe aortic regurgitation. Course complicated by acute heart failure, acute renal failure, and recurrent chest/epigastric pain. Underwent urgent PCI to mid LAD and staged PCI to RCA. Was recovering, but now septic with multi organ system failure, who sustained an asystolic arrest last night and was coded. Now she is DNR. Impression: Acute AK with new LBBB, s/p PCI/stent to mid LAD and RCA Septic shock with multi-organ failure Acute on chronic renal insufficiency Severe aortic regurgitation which is chronic per Dr. Archuleta (opt drafter refrigeration), and moderate mitral regurgitation Hospital-acquired pneumonia Yeast UTI Recommendations: Bumex drip and supportive care through today. If no significant improvement, then family is agreeable to comfort care measures. Met with with pt , with son Angel, Dr. Cleary, and Dr. Magallon in discussion of the above. Consultation Date/Type/Reason Admit Date/Time December 28, 2018 at 03:23 Initial Consult Date 12/28/18 Type of Consult Cardiology Requesting Provider: KRYSTAL BERNARD Date/Time of Note DATE: 01/21/19 TIME: 09:21 24 HR Interval Summary Free Text/Dictation Events of last night noted. Patient became asystolic, intubated, coded. Code status changed to DNR. Patient and son present this morning. Subjective hx not possible: pt non-verbal, pt critical status Exam/Review of Systems Vital Signs Vitals Vital Signs Date Temp Pulse Resp B/P (MAP) Pulse Ox O2 O2 Flow FiO2 Time Delivery Rate 01/21/19 105 27 68/29 (42) 78 Mechanical 07:00 Ventilator 01/21/19 6.0 06:45 01/21/19 100 05:20 01/21/19 98.3 00:00 Intake and Output 01/20/19 01/20/19 01/21/19 1515:00 23:00 07:00 IntakeIntake Total 100 ml 200 ml OutputOutput Total 120 ml 95 ml 5 ml BalanceBalance -120 ml 5 ml 195 ml Exam Constitutional: non-verbal Head: normocephalic, atraumatic Eyes: nl lids ENMT: nl external ears & nose, intubated Neck: No bruits Respiratory: other (coarse breath sounds) Cardiovascular: regular rate and rhythm, murmurs/extra sounds Gastrointestinal: soft, non-tender Musculoskeletal: nl extremities to inspection Extremities: No edema Neurological: other (sedated) Skin: rash or lesions Labs Result Diagram: 01/21/19 0439 01/21/19 0439 Results 24hrs Laboratory Tests Test 01/20/19 10:00 01/20/19 13:32 01/20/19 17:15 01/20/19 19:37 Blood Gas Blood arterial Specimen Source Arterial Blood 01/20/2019 11:00 Date Drawn :01 AM Arterial Blood 7.368 pH (Temp corrected) Arterial Blood 37.3 pCO2 (Temp correct) Arterial Blood 65.6 L pO2 (Temp corrected) Arterial Blood 21.0 L HCO3 Arterial Blood -3.9 L Base Excess Arterial Blood 90.8 L Oxygen Saturatio n Francis Test ACCEPTAB Arterial Blood Left Radial Gas Puncture Site Arterial 0.3 Blood Carboxyhem oglobin Arterial Blood 0.4 Methemoglobin Blood Gas A-a O2 104.5 H Differential Oxyhemoglobin 90.2 L Percent Blood Gas 37.0 Temperature Blood Gas 20.0 Respiration Rate Blood Gas Actual 26 Respiration Rate Blood Gas MASK - BIPAP Modality FiO2 30.0 Blood Gas 10 Pressure Support Blood Gas 15/5 IPAP/EPAP Ratio Blood Gas RT Notified Whom Blood Gas 01/20/2019 11:12 Notified Time :05 AM Bedside Glucose 116 148 Troponin I 0.419 *H Test 01/20/19 19:56 01/20/19 20:36 01/21/19 01:39 01/21/19 04:21 Blood Gas Blood arterial Specimen Source Arterial Blood 01/20/2019 8:10: Date Drawn 21 PM Arterial Blood 7.400 pH (Temp corrected) Arterial Blood 34.2 L pCO2 (Temp correct) Arterial Blood 47.6 *L pO2 (Temp corrected) Arterial Blood 20.7 L HCO3 Arterial Blood -3.5 L Base Excess Arterial Blood 79.7 L Oxygen Saturatio n Francis Test N/A Arterial Blood Right Brachial Gas Puncture Site Arterial 0.3 Blood Carboxyhem oglobin Arterial Blood 0.2 Methemoglobin Blood Gas A-a O2 631.2 H Differential Oxyhemoglobin 79.3 L Percent Blood Gas 37.0 Temperature Blood Gas Actual 37 Respiration Rate Blood Gas MASK - BIPAP Modality FiO2 100.0 Blood Gas 10 Pressure Support Blood Gas 20/10 IPAP/EPAP Ratio Blood Gas Colby SALGUERO MD Critical Value Read Back Blood Gas MR Notified Whom Blood Gas 01/20/2019 8:17: Notified Time 35 PM Bedside Glucose 124 124 113 Test 01/21/19 04:39 01/21/19 04:42 01/21/19 05:08 White Blood 23.6 #H Count Red Blood Count 2.83 L Hemoglobin 8.6 L Hematocrit 28.4 L Mean Corpuscular 100.4 Volume Mean Corpuscular 30.4 Hemoglobin Mean Corpuscular 30.3 L Hemoglobin Devika nt Red Cell 19.3 H Distribution Width Platelet Count 179 # Mean Platelet 10.9 H Volume Immature 2.100 H Granulocytes % Neutrophils % 79.3 H Lymphocytes % 14.8 L Monocytes % 2.6 Eosinophils % 0.8 Basophils % 0.4 Nucleated Red 0.1 H Blood Cells % Immature 0.490 H Granulocytes # Neutrophils # 18.7 H Lymphocytes # 3.5 H Monocytes # 0.6 Eosinophils # 0.2 Basophils # 0.1 Nucleated Red 0.0 Blood Cells # Sodium Level 149 H Potassium Level 5.6 H Chloride Level 112 H Carbon Dioxide 22 Level Anion Gap 15 #H Blood Urea 70 H Nitrogen Creatinine 3.40 H Est Glomerular Filtrat Rate mL/min Glucose Level 116 Calcium Level 10.5 H Phosphorus Level 9.8 H Magnesium Level 2.3 Blood Gas Blood arterial Specimen Source Arterial Blood 01/21/2019 4:40: Date Drawn 21 AM Arterial Blood 7.254 *L pH (Temp corrected) Arterial Blood 38.3 pCO2 (Temp correct) Arterial Blood 84.0 pO2 (Temp corrected) Arterial Blood 16.6 L HCO3 Arterial Blood -9.8 L Base Excess Arterial Blood 93.3 L Oxygen Saturatio n Francis Test ACCEPTAB Arterial Blood Right Brachial Gas Puncture Site Arterial 0.3 Blood Carboxyhem oglobin Arterial Blood 0.5 Methemoglobin Blood Gas A-a O2 590.7 H Differential Oxyhemoglobin 92.6 L Percent Blood Gas 37.0 Temperature Blood Gas 18.0 Respiration Rate Blood Gas Actual 18 Respiration Rate Blood Gas VENT - AC Modality FiO2 100.0 Blood Gas Tidal 500.0 Volume Blood Gas Low 5.0 PEEP Setting Blood Gas 32.0 Inspiratory Pressure Blood Gas HT RN Critical Value Read Back Blood Gas MirlandeZakamarilis Notified Whom Blood Gas 01/21/2019 5:12: Notified Time 57 AM Lactic Acid 5.1 *H Level Creatine Kinase 129 Creatine Kinase 2.7 Index Creatinine 3.42 H Kinase MB (Mass) Troponin I 0.400 *H Medications Medications Current Medications IV Flush (NS 3 ml) 3 ml PER PROTOCOL IV ; Start 12/28/18 at 04:30 Ondansetron HCl (Zofran Inj) 4 mg Q6H PRN IV NAUSEA/VOMITING Last administered on 01/17/19at 13:34; Admin Dose 4 MG; Start 12/28/18 at 04:30 Miscellaneous Information 1 ea NOTE XX ; Start 12/28/18 at 05:00 Glucose (Glutose) 15 gm Q15M PRN PO DECREASED GLUCOSE; Start 12/28/18 at 05:00 Glucose (Glutose) 22.5 gm Q15M PRN PO DECREASED GLUCOSE; Start 12/28/18 at 05:00 Dextrose (D50w Syringe) 25 ml Q15M PRN IV DECREASED GLUCOSE; Start 12/28/18 at 05:00 Dextrose (D50w Syringe) 50 ml Q15M PRN IV DECREASED GLUCOSE; Start 12/28/18 at 05:00 Glucagon (Glucagen) 1 mg Q15M PRN IM DECREASED GLUCOSE; Start 12/28/18 at 05:00 Glucose (Glutose) 15 gm Q15M PRN BUCCAL DECREASED GLUCOSE; Start 12/28/18 at 05:00 Phenol (Cepastat Lozenge) 1 lozenge Q1H PRN MT COUGH Last administered on 01/03/19at 13:05; Admin Dose 1 LOZENGE; Start 12/28/18 at 17:30 Escitalopram Oxalate (Lexapro) 10 mg DAILY PO Last administered on 01/19/19at 09:06; Admin Dose 10 MG; Start 12/29/18 at 09:30 Clopidogrel Bisulfate (plaVIX) 75 mg DAILY PO Last administered on 01/19/19at 09:06; Admin Dose 75 MG; Start 01/03/19 at 09:00 Morphine Sulfate (morphine) 1 mg Q1H PRN IV SEVERE PAIN LEVEL 7-10 Last administered on 01/19/19 02:01; Admin Dose 1 MG; Start 01/04/19 at 16:00 Polyethylene Glycol (Miralax) 17 gm BID PRN PO CONSTIPATION Last administered on 01/16/19 15:37; Admin Dose 17 GM; Start 01/06/19 at 13:00 IV Flush (NS 10 ml) 10 ml PRN PRN IV flush; Start 01/06/19 at 18:30 Bisacodyl (Dulcolax Supp) 10 mg DAILY PRN [place] CONSTIPATION; Start 01/06/19 at 19:00 Albuterol/ Ipratropium (Duoneb) 3 ml Q4H RESP THERAPY PRN HHN SHORTNESS OF BREATH Last administered on 01/11/19 15:42; Admin Dose 3 ML; Start 01/07/19 at 20:00 IV Flush (NS 10 ml) 10 ml PRN PRN IV IV PROTOCOL; Start 01/12/19 at 18:00 Insulin Aspart (Novolog Insulin Pen) (Adult SC Insulin - Mild Algorithm)... Q4 SC Last administered on 01/20/19 17:33; Admin Dose 1 UNIT; Start 01/17/19 at 05:00 Piperacillin Sod/ Tazobactam Sod 100 ml @ 25 mls/hr TID@02,10,18 IVPB Last administered on 01/21/19 02:18; Admin Dose 25 MLS/HR; Start 01/17/19 at 10:00 Famotidine (Pepcid Iv) 20 mg DAILY IV Last administered on 01/20/19 10:33; Admin Dose 20 MG; Start 01/19/19 at 09:00 Aspirin (Aspirin) 81 mg DAILY PO ; Start 01/20/19 at 09:00 Lorazepam (Ativan) 0.5 mg Q12H PRN IV AGITATION/ANXIETY; Start 01/19/19 at 22:30 Acetaminophen (Tylenol Tab) 650 mg Q6H PRN PO MILD PAIN(1-3)OR ELEVATED TEMP Last administered on 01/20/19 06:18; Admin Dose 650 MG; Start 01/20/19 at 04:30 Fluconazole 100 ml @ 100 mls/hr Q24H IVPB Last administered on 01/21/19 02:18; Admin Dose 100 MLS/HR; Start 01/20/19 at 22:30; Stop 6/11/19 at 12:00 Bumetanide 12 mg/ Dextrose/Water 120 ml @ 10 mls/hr Q12H ONCE IV ; Start 01/21/19 at 09:30; Stop 01/21/19 at 21:29 Fentanyl 100 ml @ 2.5 mls/hr TITRATE IV ; Start 01/21/19 at 09:00 Sodium Bicarbonate 100 meq/Dextrose/ Sodium Chloride 1,100 ml @ 100 mls/hr Q11H IV ; Start 01/21/19 at 10:00 RODRIGUEZ GARZA January 21, 2019 09:25
[2019-01-21] MEDS ORDERED: BUMETANIDE 12 MG in DEXTROSE 5% 72 ML IV ONE (09:30)
[2019-01-21] MEDS: SODIUM BICARBONATE (IV ADD) 100 MEQ in DEXTROSE 5%-0.45% NACL 1,000 ML IV SCH ×2 (10:35→20:43)
[2019-01-21] MEDS: FENTAnyl (DRIP) 1000 mcg/100mL 100 ML IV SCH (10:43)
[2019-01-21] MEDS: CLOPIDOGREL 75 MG TAB PO SCH (10:53)
[2019-01-21] MEDS: ESCITALOPRAM 10 MG TAB PO SCH (10:53)
[2019-01-21] MEDS: ASPIRIN 81 MG TAB PO SCH (10:53)
[2019-01-21] MEDS ORDERED: SODIUM POLYSTYRENE 15 GM KIT (POWDER + SORBITOL) PO STA (11:00)
[2019-01-21] MEDS ORDERED: PHENYLephrine 20MG IN 250 ML 250 ML ONE ×2 (11:05→20:16)
[2019-01-21] MEDS ORDERED: VANCOMYCIN 1 GM 250 ML IVPB SCH (12:00)
[2019-01-21] MEDS: MIDAZOLAM (DRIP) 50 mg/50 mL 50 ML IV SCH (12:09)
[2019-01-21] MEDS: PHENYLephrine 80 MG in DEXTROSE 5% 242 ML IV SCH ×5 (12:11→23:57)
--- NOTE | 2019-01-21 12:12 | CONS ---
Assessment/Plan Assessment/Plan Hospital Course (Demo Recall) Patient coded this morning currently intubated and sedated she is in no distress with a T-max of 100.2 T-current 98.3 WBC 23.6 platelets 179 neutrophils 79.3 BUN 70 creatinine 3.40 lactic acid 2.4 Microbiology: Blood cultures on admission grew coag negative staph suspicious repeat blood cultures remain negative, stool for C. difficile negative as well Indwelling's: Endotracheal tube, NG tube, PICC line, Taveras catheter, Antimicrobials: Patient is on Zosyn and vancomycin, also on fluconazole Chest x-ray this morning revealed interstitial prominence and hazy alveolar opacity compatible with mild edema versus pneumonia Physical examination: Chronically ill-appearing elderly woman who is intubated sedated in no distress. Head atraumatic normocephalic sclera nonicteric vehicle mucosa dry neck is supple chest rise symmetrical breath sounds diminished to bases. Heart: S1-S2. Abdomen soft bowel sounds present. Extremities with trace dependent edema Assessment: 1. Severe sepsis with shock 2. Acute respiratory failure status post cardiac arrest 3. ST elevation [place] 4. Acute kidney failure 5. Fungal UTI 6. Small bowel obstruction status post NG tube Plan: Patient is doing poorly, CODE STATUS changed to DNR, continue present care and antibiotics, follow cardiology pulmonary and nephrology recommendations Consultation Date/Type/Reason Admit Date/Time December 28, 2018 at 03:23 Initial Consult Date 01/17/19 Type of Consult id Requesting Provider: KRYSTAL BERNARD Date/Time of Note DATE: 01/21/19 TIME: 12:11 Exam/Review of Systems Exam Vitals Vital Signs Date Temp Pulse Resp B/P (MAP) Pulse Ox O2 O2 Flow FiO2 Time Delivery Rate 01/21/19 107 08:00 01/21/19 27 68/29 (42) 78 Mechanical 07:00 Ventilator 01/21/19 6.0 06:45 01/21/19 100 05:20 01/21/19 98.3 00:00 Intake and Output 01/20/19 01/20/19 01/21/19 1515:00 23:00 07:00 IntakeIntake Total 100 ml 200 ml OutputOutput Total 120 ml 95 ml 5 ml BalanceBalance -120 ml 5 ml 195 ml Results Result Diagram: 01/21/19 0439 01/21/19 0439 Results 24hrs Laboratory Tests Test 01/20/19 13:32 01/20/19 17:15 01/20/19 19:37 01/20/19 19:56 Bedside Glucose 116 148 Troponin I 0.419 *H Blood Gas Blood arterial Specimen Source Arterial Blood 01/20/2019 8:10: Date Drawn 21 PM Arterial Blood 7.400 pH (Temp corrected) Arterial Blood 34.2 L pCO2 (Temp correct) Arterial Blood 47.6 *L pO2 (Temp corrected) Arterial Blood 20.7 L HCO3 Arterial Blood -3.5 L Base Excess Arterial Blood 79.7 L Oxygen Saturatio n Francis Test N/A Arterial Blood Right Brachial Gas Puncture Site Arterial 0.3 Blood Carboxyhem oglobin Arterial Blood 0.2 Methemoglobin Blood Gas A-a O2 631.2 H Differential Oxyhemoglobin 79.3 L Percent Blood Gas 37.0 Temperature Blood Gas Actual 37 Respiration Rate Blood Gas MASK - BIPAP Modality FiO2 100.0 Blood Gas 10 Pressure Support Blood Gas 20/10 IPAP/EPAP Ratio Blood Gas Colby SALGUERO MD Critical Value Read Back Blood Gas MR Notified Whom Blood Gas 01/20/2019 8:17: Notified Time 35 PM Test 01/20/19 20:36 01/21/19 01:39 01/21/19 04:21 01/21/19 04:39 Bedside Glucose 124 124 113 White Blood 23.6 #H Count Red Blood Count 2.83 L Hemoglobin 8.6 L Hematocrit 28.4 L Mean Corpuscular 100.4 Volume Mean Corpuscular 30.4 Hemoglobin Mean Corpuscular 30.3 L Hemoglobin Devika nt Red Cell 19.3 H Distribution Width Platelet Count 179 # Mean Platelet 10.9 H Volume Immature 2.100 H Granulocytes % Neutrophils % 79.3 H Lymphocytes % 14.8 L Monocytes % 2.6 Eosinophils % 0.8 Basophils % 0.4 Nucleated Red 0.1 H Blood Cells % Immature 0.490 H Granulocytes # Neutrophils # 18.7 H Lymphocytes # 3.5 H Monocytes # 0.6 Eosinophils # 0.2 Basophils # 0.1 Nucleated Red 0.0 Blood Cells # Sodium Level 149 H Potassium Level 5.6 H Chloride Level 112 H Carbon Dioxide 22 Level Anion Gap 15 #H Blood Urea 70 H Nitrogen Creatinine 3.40 H Est Glomerular Filtrat Rate mL/min Glucose Level 116 Calcium Level 10.5 H Phosphorus Level 9.8 H Magnesium Level 2.3 Test 01/21/19 04:42 01/21/19 05:08 01/21/19 10:15 01/21/19 10:43 Blood Gas Blood arterial Specimen Source Arterial Blood 01/21/2019 4:40: Date Drawn 21 AM Arterial Blood 7.254 *L pH (Temp corrected) Arterial Blood 38.3 pCO2 (Temp correct) Arterial Blood 84.0 pO2 (Temp corrected) Arterial Blood 16.6 L HCO3 Arterial Blood -9.8 L Base Excess Arterial Blood 93.3 L Oxygen Saturatio n Francis Test ACCEPTAB Arterial Blood Right Brachial Gas Puncture Site Arterial 0.3 Blood Carboxyhem oglobin Arterial Blood 0.5 Methemoglobin Blood Gas A-a O2 590.7 H Differential Oxyhemoglobin 92.6 L Percent Blood Gas 37.0 Temperature Blood Gas 18.0 Respiration Rate Blood Gas Actual 18 Respiration Rate Blood Gas VENT - AC Modality FiO2 100.0 Blood Gas Tidal 500.0 Volume Blood Gas Low 5.0 PEEP Setting Blood Gas 32.0 Inspiratory Pressure Blood Gas HT RN Critical Value Read Back Blood Gas Douglas Notified Whom Blood Gas 01/21/2019 5:12: Notified Time 57 AM Lactic Acid 5.1 *H 2.4 *H Level Creatine Kinase 129 Creatine Kinase 2.7 Index Creatinine 3.42 H Kinase MB (Mass) Troponin I 0.400 *H Bedside Glucose 179 Medications Medication Current Medications IV Flush (NS 3 ml) 3 ml PER PROTOCOL IV ; Start 12/28/18 at 04:30 Ondansetron HCl (Zofran Inj) 4 mg Q6H PRN IV NAUSEA/VOMITING Last administered on 01/17/19at 13:34; Admin Dose 4 MG; Start 12/28/18 at 04:30 Miscellaneous Information 1 ea NOTE XX ; Start 12/28/18 at 05:00 Glucose (Glutose) 15 gm Q15M PRN PO DECREASED GLUCOSE; Start 12/28/18 at 05:00 Glucose (Glutose) 22.5 gm Q15M PRN PO DECREASED GLUCOSE; Start 12/28/18 at 05:00 Dextrose (D50w Syringe) 25 ml Q15M PRN IV DECREASED GLUCOSE; Start 12/28/18 at 05:00 Dextrose (D50w Syringe) 50 ml Q15M PRN IV DECREASED GLUCOSE; Start 12/28/18 at 05:00 Glucagon (Glucagen) 1 mg Q15M PRN IM DECREASED GLUCOSE; Start 12/28/18 at 05:00 Glucose (Glutose) 15 gm Q15M PRN BUCCAL DECREASED GLUCOSE; Start 12/28/18 at 05:00 Phenol (Cepastat Lozenge) 1 lozenge Q1H PRN MT COUGH Last administered on 01/03/19 13:05; Admin Dose 1 LOZENGE; Start 12/28/18 at 17:30 Escitalopram Oxalate (Lexapro) 10 mg DAILY PO Last administered on 01/21/19 10:53; Admin Dose 10 MG; Start 12/29/18 at 09:30 Clopidogrel Bisulfate (plaVIX) 75 mg DAILY PO Last administered on 01/21/19 10:53; Admin Dose 75 MG; Start 01/03/19 at 09:00 Morphine Sulfate (morphine) 1 mg Q1H PRN IV SEVERE PAIN LEVEL 7-10 Last administered on 01/19/19 02:01; Admin Dose 1 MG; Start 01/04/19 at 16:00 Polyethylene Glycol (Miralax) 17 gm BID PRN PO CONSTIPATION Last administered on 01/16/19 15:37; Admin Dose 17 GM; Start 01/06/19 at 13:00 IV Flush (NS 10 ml) 10 ml PRN PRN IV flush; Start 01/06/19 at 18:30 Bisacodyl (Dulcolax Supp) 10 mg DAILY PRN [place] CONSTIPATION; Start 01/06/19 at 19:00 Albuterol/ Ipratropium (Duoneb) 3 ml Q4H RESP THERAPY PRN HHN SHORTNESS OF BREATH Last administered on 01/11/19 15:42; Admin Dose 3 ML; Start 01/07/19 at 20:00 IV Flush (NS 10 ml) 10 ml PRN PRN IV IV PROTOCOL; Start 01/12/19 at 18:00 Insulin Aspart (Novolog Insulin Pen) (Adult SC Insulin - Mild Algorithm)... Q4 SC Last administered on 01/21/19 10:52; Admin Dose 1 UNIT; Start 01/17/19 at 05:00 Piperacillin Sod/ Tazobactam Sod 100 ml @ 25 mls/hr TID@02,10,18 IVPB Last administered on 01/21/19 11:29; Admin Dose 25 MLS/HR; Start 01/17/19 at 10:00 Famotidine (Pepcid Iv) 20 mg DAILY IV Last administered on 01/21/19at 09:00; Admin Dose 20 MG; Start 01/19/19 at 09:00 Aspirin (Aspirin) 81 mg DAILY PO Last administered on 01/21/19at 10:53; Admin Dose 81 MG; Start 01/20/19 at 09:00 Lorazepam (Ativan) 0.5 mg Q12H PRN IV AGITATION/ANXIETY; Start 01/19/19 at 22:30 Acetaminophen (Tylenol Tab) 650 mg Q6H PRN PO MILD PAIN(1-3)OR ELEVATED TEMP Last administered on 01/20/19 06:18; Admin Dose 650 MG; Start 01/20/19 at 04:30 Fluconazole 100 ml @ 100 mls/hr Q24H IVPB Last administered on 01/21/19 02:18; Admin Dose 100 MLS/HR; Start 01/20/19 at 22:30; Stop 02/03/19 at 12:00 Bumetanide 12 mg/ Dextrose/Water 120 ml @ 10 mls/hr Q12H ONCE IV Last administered on 01/21/19at 10:35; Admin Dose 10 MLS/HR; Start 01/21/19 at 09:30; Stop 01/21/19 at 21:29 Fentanyl 100 ml @ 2.5 mls/hr TITRATE IV Last administered on 01/21/19at 10:43; Admin Dose 2.5 MLS/HR; Start 01/21/19 at 09:00 Sodium Bicarbonate 100 meq/Dextrose/ Sodium Chloride 1,100 ml @ 100 mls/hr Q11H IV Last administered on 01/21/19at 10:35; Admin Dose 100 MLS/HR; Start 01/21/19 at 10:00 Midazolam HCl 50 ml @ 1 mls/hr TITRATE IV ; Start 01/21/19 at 11:00 Phenylephrine HCl 40 mg/Dextrose 250 ml @ 37.5 mls/hr TITRATE IV ; Start 01/21/19 at 11:30; Stop 01/21/19 at 18:00 Phenylephrine HCl 80 mg/Dextrose 250 ml @ 18.75 mls/ hr TITRATE IV ; Start at 12:00 HARPER [place] NP January 21, 2019 12:12
[2019-01-21] MEDS: PHENYLephrine 40 MG in DEXTROSE 5% 246 ML IV SCH ×2 (12:13→14:49)
--- NOTE | 2019-01-21 12:19 | PN ---
Date/Time of Note Date/Time of Note DATE: 01/21/19 TIME: 12:07 Assessment/Plan VTE Prophylaxis Risk score (from Ns)>0 risk: 17 SCD applied (from Nsg): Yes Pharmacological prophylaxis: other (scds) Lines/Catheters IV Catheter Type (from Nrsg): PICC Line Central line still needed: Yes (meds) Urinary Cath still in place: Yes Reason Cath still needed: other (indicate) (monitor output) Assessment/Plan Hospital Course Summary Assessment and Plan: Assessment: Acute resp failure -On BiPAP- transferred to ICU 01/20/19 Abdominal pain/abdominal distention -CT abd/pelvis-Mild distension of the ascending and transverse colon with air-fluid levels. No evidence of bowel obstruction -KUB 01/14- Nonspecific bowel gas pattern with a few mildly distended air filled loops of small bowel. -SBFT- negative for obstruction Leukocytosis Acute TX - S/p PCI to LAD (01/04) and RCA (01/08) Bilateral infiltrates, greatest in the right upper lobe CHF, with bilateral pleural effusion Bacteremia -Positive for coagulase-negative staph -Repeat blood cultures are negative Rash-2/2 to antibiotics- improved WILLIAM Acute on chronic encephalopathy -Patient with baseline dementia Diarrhea/loose stool -CDIFF- negative -Stool cx- coliform Plan Supportive care Patient seen in collaboration with Dr. Diaz/Dorene Subjective: Course reviewed with nursing staff Patient interviewed and examined All labs, imaging and other results reviewed S/p cardiopulmonary arrest requiring emergent intubation and mechanical ventilation this am Code status has been changed to DNR PHYSICAL EXAMINATION: GENERAL: Intubated on MN EARS/NOSE AND THROAT: NG-tube. CARDIOVASCULAR: Heart: Regular rate and rhythm RESPIRATORY: Lungs clear to auscultation GASTROINTESTINAL AND LIVER: Abdomen: Soft, non tenderness, distended, no hernias, no masses, hypoactive bowel sounds. Rectal: Deferred. EXTREMITIES: No cyanosis, clubbing or edema. Result Diagram: 01/21/19 0439 01/21/19 0439 Results 24hrs Laboratory Tests Test 01/20/19 13:32 01/20/19 17:15 01/20/19 19:37 01/20/19 19:56 Bedside Glucose 116 148 Troponin I 0.419 *H Blood Gas Blood arterial Specimen Source Arterial Blood 01/20/2019 8:10: Date Drawn 21 PM Arterial Blood 7.400 pH (Temp corrected) Arterial Blood 34.2 L pCO2 (Temp correct) Arterial Blood 47.6 *L pO2 (Temp corrected) Arterial Blood 20.7 L HCO3 Arterial Blood -3.5 L Base Excess Arterial Blood 79.7 L Oxygen Saturatio n Francis Test N/A Arterial Blood Right Brachial Gas Puncture Site Arterial 0.3 Blood Carboxyhem oglobin Arterial Blood 0.2 Methemoglobin Blood Gas A-a O2 631.2 H Differential Oxyhemoglobin 79.3 L Percent Blood Gas 37.0 Temperature Blood Gas Actual 37 Respiration Rate Blood Gas MASK - BIPAP Modality FiO2 100.0 Blood Gas 10 Pressure Support Blood Gas 14/06 IPAP/EPAP Ratio Blood Gas Colby SALGUERO MD Critical Value Read Back Blood Gas MR Notified Whom Blood Gas 01/20/2019 8:17: Notified Time 35 PM Test 01/20/19 20:36 01/21/19 01:39 01/21/19 04:21 01/21/19 04:39 Bedside Glucose 124 124 113 White Blood 23.6 #H Count Red Blood Count 2.83 L Hemoglobin 8.6 L Hematocrit 28.4 L Mean Corpuscular 100.4 Volume Mean Corpuscular 30.4 Hemoglobin Mean Corpuscular 30.3 L Hemoglobin Devika nt Red Cell 19.3 H Distribution Width Platelet Count 179 # Mean Platelet 10.9 H Volume Immature 2.100 H Granulocytes % Neutrophils % 79.3 H Lymphocytes % 14.8 L Monocytes % 2.6 Eosinophils % 0.8 Basophils % 0.4 Nucleated Red 0.1 H Blood Cells % Immature 0.490 H Granulocytes # Neutrophils # 18.7 H Lymphocytes # 3.5 H Monocytes # 0.6 Eosinophils # 0.2 Basophils # 0.1 Nucleated Red 0.0 Blood Cells # Sodium Level 149 H Potassium Level 5.6 H Chloride Level 112 H Carbon Dioxide 22 Level Anion Gap 15 #H Blood Urea 70 H Nitrogen Creatinine 3.40 H Est Glomerular Filtrat Rate mL/min Glucose Level 116 Calcium Level 10.5 H Phosphorus Level 9.8 H Magnesium Level 2.3 Test 01/21/19 04:42 01/21/19 05:08 01/21/19 10:15 01/21/19 10:43 Blood Gas Blood arterial Specimen Source Arterial Blood 01/21/2019 4:40: Date Drawn 21 AM Arterial Blood 7.254 *L pH (Temp corrected) Arterial Blood 38.3 pCO2 (Temp correct) Arterial Blood 84.0 pO2 (Temp corrected) Arterial Blood 16.6 L HCO3 Arterial Blood -9.8 L Base Excess Arterial Blood 93.3 L Oxygen Saturatio n Francis Test ACCEPTAB Arterial Blood Right Brachial Gas Puncture Site Arterial 0.3 Blood Carboxyhem oglobin Arterial Blood 0.5 Methemoglobin Blood Gas A-a O2 590.7 H Differential Oxyhemoglobin 92.6 L Percent Blood Gas 37.0 Temperature Blood Gas 18.0 Respiration Rate Blood Gas Actual 18 Respiration Rate Blood Gas VENT - AC Modality FiO2 100.0 Blood Gas Tidal 500.0 Volume Blood Gas Low 5.0 PEEP Setting Blood Gas 32.0 Inspiratory Pressure Blood Gas HT RN Critical Value Read Back Blood Gas JJordan Notified Whom Blood Gas 01/21/2019 5:12: Notified Time 57 AM Lactic Acid 5.1 *H 2.4 *H Level Creatine Kinase 129 Creatine Kinase 2.7 Index Creatinine 3.42 H Kinase MB (Mass) Troponin I 0.400 *H Bedside Glucose 179 Exam/Review of Systems Exam Vitals Vital Signs Date Temp Pulse Resp B/P (MAP) Pulse Ox O2 O2 Flow FiO2 Time Delivery Rate 01/21/19 107 08:00 01/21/19 27 68/29 (42) 78 Mechanical 07:00 Ventilator 01/21/19 6.0 06:45 01/21/19 100 05:20 01/21/19 98.3 00:00 Intake and Output 01/20/19 01/20/19 01/21/19 1515:00 23:00 07:00 IntakeIntake Total 100 ml 200 ml OutputOutput Total 120 ml 95 ml 5 ml BalanceBalance -120 ml 5 ml 195 ml Results Results 24hrs Laboratory Tests Test 01/20/19 13:32 01/20/19 17:15 01/20/19 19:37 01/20/19 19:56 Bedside Glucose 116 148 Troponin I 0.419 *H Blood Gas Blood arterial Specimen Source Arterial Blood 01/20/2019 8:10: Date Drawn 21 PM Arterial Blood 7.400 pH (Temp corrected) Arterial Blood 34.2 L pCO2 (Temp correct) Arterial Blood 47.6 *L pO2 (Temp corrected) Arterial Blood 20.7 L HCO3 Arterial Blood -3.5 L Base Excess Arterial Blood 79.7 L Oxygen Saturatio n Francis Test N/A Arterial Blood Right Brachial Gas Puncture Site Arterial 0.3 Blood Carboxyhem oglobin Arterial Blood 0.2 Methemoglobin Blood Gas A-a O2 631.2 H Differential Oxyhemoglobin 79.3 L Percent Blood Gas 37.0 Temperature Blood Gas Actual 37 Respiration Rate Blood Gas MASK - BIPAP Modality FiO2 100.0 Blood Gas 10 Pressure Support Blood Gas 20/10 IPAP/EPAP Ratio Blood Gas Colby SALGUERO MD Critical Value Read Back Blood Gas MR Notified Whom Blood Gas 01/20/2019 8:17: Notified Time 35 PM Test 01/20/19 20:36 01/21/19 01:39 01/21/19 04:21 01/21/19 04:39 Bedside Glucose 124 124 113 White Blood 23.6 #H Count Red Blood Count 2.83 L Hemoglobin 8.6 L Hematocrit 28.4 L Mean Corpuscular 100.4 Volume Mean Corpuscular 30.4 Hemoglobin Mean Corpuscular 30.3 L Hemoglobin Devika nt Red Cell 19.3 H Distribution Width Platelet Count 179 # Mean Platelet 10.9 H Volume Immature 2.100 H Granulocytes % Neutrophils % 79.3 H Lymphocytes % 14.8 L Monocytes % 2.6 Eosinophils % 0.8 Basophils % 0.4 Nucleated Red 0.1 H Blood Cells % Immature 0.490 H Granulocytes # Neutrophils # 18.7 H Lymphocytes # 3.5 H Monocytes # 0.6 Eosinophils # 0.2 Basophils # 0.1 Nucleated Red 0.0 Blood Cells # Sodium Level 149 H Potassium Level 5.6 H Chloride Level 112 H Carbon Dioxide 22 Level Anion Gap 15 #H Blood Urea 70 H Nitrogen Creatinine 3.40 H Est Glomerular Filtrat Rate mL/min Glucose Level 116 Calcium Level 10.5 H Phosphorus Level 9.8 H Magnesium Level 2.3 Test 01/21/19 04:42 01/21/19 05:08 01/21/19 10:15 01/21/19 10:43 Blood Gas Blood arterial Specimen Source Arterial Blood 01/21/2019 4:40: Date Drawn 21 AM Arterial Blood 7.254 *L pH (Temp corrected) Arterial Blood 38.3 pCO2 (Temp correct) Arterial Blood 84.0 pO2 (Temp corrected) Arterial Blood 16.6 L HCO3 Arterial Blood -9.8 L Base Excess Arterial Blood 93.3 L Oxygen Saturatio n Francis Test ACCEPTAB Arterial Blood Right Brachial Gas Puncture Site Arterial 0.3 Blood Carboxyhem oglobin Arterial Blood 0.5 Methemoglobin Blood Gas A-a O2 590.7 H Differential Oxyhemoglobin 92.6 L Percent Blood Gas 37.0 Temperature Blood Gas 18.0 Respiration Rate Blood Gas Actual 18 Respiration Rate Blood Gas VENT - AC Modality FiO2 100.0 Blood Gas Tidal 500.0 Volume Blood Gas Low 5.0 PEEP Setting Blood Gas 32.0 Inspiratory Pressure Blood Gas HT RN Critical Value Read Back Blood Gas JJordan Notified Whom Blood Gas 01/21/2019 5:12: Notified Time 57 AM Lactic Acid 5.1 *H 2.4 *H Level Creatine Kinase 129 Creatine Kinase 2.7 Index Creatinine 3.42 H Kinase MB (Mass) Troponin I 0.400 *H Bedside Glucose 179 Medications Medication Current Medications IV Flush (NS 3 ml) 3 ml PER PROTOCOL IV ; Start 12/28/18 at 04:30 Ondansetron HCl (Zofran Inj) 4 mg Q6H PRN IV NAUSEA/VOMITING Last administered on 01/17/19at 13:34; Admin Dose 4 MG; Start 12/28/18 at 04:30 Miscellaneous Information 1 ea NOTE XX ; Start 12/28/18 at 05:00 Glucose (Glutose) 15 gm Q15M PRN PO DECREASED GLUCOSE; Start 12/28/18 at 05:00 Glucose (Glutose) 22.5 gm Q15M PRN PO DECREASED GLUCOSE; Start 12/28/18 at 05:00 Dextrose (D50w Syringe) 25 ml Q15M PRN IV DECREASED GLUCOSE; Start 12/28/18 at 05:00 Dextrose (D50w Syringe) 50 ml Q15M PRN IV DECREASED GLUCOSE; Start 12/28/18 at 05:00 Glucagon (Glucagen) 1 mg Q15M PRN IM DECREASED GLUCOSE; Start 12/28/18 at 05:00 Glucose (Glutose) 15 gm Q15M PRN BUCCAL DECREASED GLUCOSE; Start 12/28/18 at 05:00 Phenol (Cepastat Lozenge) 1 lozenge Q1H PRN MT COUGH Last administered on 01/03/19at 13:05; Admin Dose 1 LOZENGE; Start 12/28/18 at 17:30 Escitalopram Oxalate (Lexapro) 10 mg DAILY PO Last administered on 01/21/19 10:53; Admin Dose 10 MG; Start 12/29/18 at 09:30 Clopidogrel Bisulfate (plaVIX) 75 mg DAILY PO Last administered on 01/21/19 10:53; Admin Dose 75 MG; Start 01/03/19 at 09:00 Morphine Sulfate (morphine) 1 mg Q1H PRN IV SEVERE PAIN LEVEL 7-10 Last administered on 01/19/19 02:01; Admin Dose 1 MG; Start 01/04/19 at 16:00 Polyethylene Glycol (Miralax) 17 gm BID PRN PO CONSTIPATION Last administered on 01/16/19 15:37; Admin Dose 17 GM; Start 01/06/19 at 13:00 IV Flush (NS 10 ml) 10 ml PRN PRN IV flush; Start 01/06/19 at 18:30 Bisacodyl (Dulcolax Supp) 10 mg DAILY PRN MT CONSTIPATION; Start 01/06/19 at 19:00 Albuterol/ Ipratropium (Duoneb) 3 ml Q4H RESP THERAPY PRN HHN SHORTNESS OF BREATH Last administered on 01/11/19 15:42; Admin Dose 3 ML; Start 01/07/19 at 20:00 IV Flush (NS 10 ml) 10 ml PRN PRN IV IV PROTOCOL; Start 01/12/19 at 18:00 Insulin Aspart (Novolog Insulin Pen) (Adult SC Insulin - Mild Algorithm)... Q4 SC Last administered on 01/21/19 10:52; Admin Dose 1 UNIT; Start 01/17/19 at 05:00 Piperacillin Sod/ Tazobactam Sod 100 ml @ 25 mls/hr TID@02,10,18 IVPB Last administered on 01/21/19 11:29; Admin Dose 25 MLS/HR; Start 01/17/19 at 10:00 Famotidine (Pepcid Iv) 20 mg DAILY IV Last administered on 01/21/19 09:00; Admin Dose 20 MG; Start 01/19/19 at 09:00 Aspirin (Aspirin) 81 mg DAILY PO Last administered on 01/21/19 10:53; Admin Dose 81 MG; Start 01/20/19 at 09:00 Lorazepam (Ativan) 0.5 mg Q12H PRN IV AGITATION/ANXIETY; Start 01/19/19 at 22:30 Acetaminophen (Tylenol Tab) 650 mg Q6H PRN PO MILD PAIN(1-3)OR ELEVATED TEMP Last administered on 01/20/19at 06:18; Admin Dose 650 MG; Start 01/20/19 at 04:30 Fluconazole 100 ml @ 100 mls/hr Q24H IVPB Last administered on 01/21/19at 02:18; Admin Dose 100 MLS/HR; Start 01/20/19 at 22:30; Stop 02/03/19 at 12:00 Bumetanide 12 mg/ Dextrose/Water 120 ml @ 10 mls/hr Q12H ONCE IV Last administered on 01/21/19at 10:35; Admin Dose 10 MLS/HR; Start 01/21/19 at 09:30; Stop 01/21/19 at 21:29 Fentanyl 100 ml @ 2.5 mls/hr TITRATE IV Last administered on 01/21/19at 10:43; Admin Dose 2.5 MLS/HR; Start 01/21/19 at 09:00 Sodium Bicarbonate 100 meq/Dextrose/ Sodium Chloride 1,100 ml @ 100 mls/hr Q11H IV Last administered on 01/21/19at 10:35; Admin Dose 100 MLS/HR; Start 01/21/19 at 10:00 Midazolam HCl 50 ml @ 1 mls/hr TITRATE IV ; Start 01/21/19 at 11:00 Phenylephrine HCl 40 mg/Dextrose 250 ml @ 37.5 mls/hr TITRATE IV ; Start 01/21/19 at 11:30; Stop 01/21/19 at 18:00 Phenylephrine HCl 80 mg/Dextrose 250 ml @ 18.75 mls/ hr TITRATE IV ; Start 01/21/19 at 12:00 GARY PRIETO January 21, 2019 12:19
--- NOTE | 2019-01-21 14:42 | PN ---
Date/Time of Note Date/Time of Note DATE: 01/21/19 TIME: 14:35 Assessment/Plan VTE Prophylaxis Risk score (from Nsg)>0 risk: 17 SCD applied (from Nsg): Yes Pharmacological prophylaxis: heparin Lines/Catheters IV Catheter Type (from Nrsg): PICC Line Central line still needed: Yes Urinary Cath still in place: Yes Reason Cath still needed: urinary retention Assessment/Plan Hospital Course EXAM: Intubated, sedated Some purposeful movements Responds to noxiuos stimlui + JVD Lungs clear, no wheezing Tachy, regular 83 yo [place]-speaking woman with history of dementia, hypertension, dyslipidemia, MR and aortic insufficiency arrhythmia who presents with ACS and multi-vessel coronary artery disease. Now s/p cardiac arrest and respiratory failure Acute respiratory failure following cardiac arrest: - Mechanical ventilation per pulmonary - Fluid removal with diuretics as able - Will give a 24 hour trial of ICU care and if no ability to be weaned tomorrow will likely pursue comfort care Acute PA - STEMI with LBBB - patient had cardiac cath on 12/28, found with: Severe 2 vessel CAD, LAD and RCA, LAD is culprit with francine 2 flow, and cardiomyopathy with LVEF 35%. Again patient also with severe aortic regurgitation and at least moderate mitral regurgitation. - Continue, Lipitor, beta-geovanny, statin, Plavix and Imdur - Now s/p PCI to LAD (01/04) and RCA (01/08) Bilateral dense perihilar parenchymal consolidation, right greater than left - Abx given, will hold vanco givn renal failure - continue zosyn course WILLIAM: -Nephrology following -No CRISTINO or ARB at this time Prophylaxis: SCDs Result Diagram: 01/21/19 0439 01/21/19 0439 Results 24hrs Laboratory Tests Test 01/20/19 17:15 01/20/19 19:37 01/20/19 19:56 01/20/19 20:36 Bedside Glucose 148 124 Troponin I 0.419 *H Blood Gas Blood arterial Specimen Source Arterial Blood 01/20/2019 8:10: Date Drawn 21 PM Arterial Blood 7.400 pH (Temp corrected) Arterial Blood 34.2 L pCO2 (Temp correct) Arterial Blood 47.6 *L pO2 (Temp corrected) Arterial Blood 20.7 L HCO3 Arterial Blood -3.5 L Base Excess Arterial Blood 79.7 L Oxygen Saturatio n Francis Test N/A Arterial Blood Right Brachial Gas Puncture Site Arterial 0.3 Blood Carboxyhem oglobin Arterial Blood 0.2 Methemoglobin Blood Gas A-a O2 631.2 H Differential Oxyhemoglobin 79.3 L Percent Blood Gas 37.0 Temperature Blood Gas Actual 37 Respiration Rate Blood Gas MASK - BIPAP Modality FiO2 100.0 Blood Gas 10 Pressure Support Blood Gas 20/10 IPAP/EPAP Ratio Blood Gas Colby SALGUERO MD Critical Value Read Back Blood Gas MR Notified Whom Blood Gas 01/20/2019 8:17: Notified Time 35 PM Test 01/21/19 01:39 01/21/19 04:21 01/21/19 04:39 01/21/19 04:42 Bedside Glucose 124 113 White Blood 23.6 #H Count Red Blood Count 2.83 L Hemoglobin 8.6 L Hematocrit 28.4 L Mean Corpuscular 100.4 Volume Mean Corpuscular 30.4 Hemoglobin Mean Corpuscular 30.3 L Hemoglobin Devika nt Red Cell 19.3 H Distribution Width Platelet Count 179 # Mean Platelet 10.9 H Volume Immature 2.100 H Granulocytes % Neutrophils % 79.3 H Lymphocytes % 14.8 L Monocytes % 2.6 Eosinophils % 0.8 Basophils % 0.4 Nucleated Red 0.1 H Blood Cells % Immature 0.490 H Granulocytes # Neutrophils # 18.7 H Lymphocytes # 3.5 H Monocytes # 0.6 Eosinophils # 0.2 Basophils # 0.1 Nucleated Red 0.0 Blood Cells # Sodium Level 149 H Potassium Level 5.6 H Chloride Level 112 H Carbon Dioxide 22 Level Anion Gap 15 #H Blood Urea 70 H Nitrogen Creatinine 3.40 H Est Glomerular Filtrat Rate mL/min Glucose Level 116 Calcium Level 10.5 H Phosphorus Level 9.8 H Magnesium Level 2.3 Blood Gas Blood arterial Specimen Source Arterial Blood 01/21/2019 4:40: Date Drawn 21 AM Arterial Blood 7.254 *L pH (Temp corrected) Arterial Blood 38.3 pCO2 (Temp correct) Arterial Blood 84.0 pO2 (Temp corrected) Arterial Blood 16.6 L HCO3 Arterial Blood -9.8 L Base Excess Arterial Blood 93.3 L Oxygen Saturatio n Francis Test ACCEPTAB Arterial Blood Right Brachial Gas Puncture Site Arterial 0.3 Blood Carboxyhem oglobin Arterial Blood 0.5 Methemoglobin Blood Gas A-a O2 590.7 H Differential Oxyhemoglobin 92.6 L Percent Blood Gas 37.0 Temperature Blood Gas 18.0 Respiration Rate Blood Gas Actual 18 Respiration Rate Blood Gas VENT - AC Modality FiO2 100.0 Blood Gas Tidal 500.0 Volume Blood Gas Low 5.0 PEEP Setting Blood Gas 32.0 Inspiratory Pressure Blood Gas HT RN Critical Value Read Back Blood Gas JJordan Notified Whom Blood Gas 01/21/2019 5:12: Notified Time 57 AM Test 01/21/19 05:08 01/21/19 10:15 01/21/19 10:43 Lactic Acid 5.1 *H 2.4 *H Level Creatine Kinase 129 Creatine Kinase 2.7 Index Creatinine 3.42 H Kinase MB (Mass) Troponin I 0.400 *H Bedside Glucose 179 Subjective 24 Hr Interval Summary Free Text/Dictation Respiratory decompensation yesterday followed by PEA arrest CPR performed, patient now intubated Discussed with family at bedside. Agree to DNR. Will give another day of diuresis to see if she responds. We have informed family that dialysis will not benefit her. If no improvement by tomorrow we will pursue comfort care Exam/Review of Systems Exam Vitals Vital Signs Date Temp Pulse Resp B/P (MAP) Pulse Ox O2 O2 Flow FiO2 Time Delivery Rate 01/21/19 85 12:00 01/21/19 20 99 100 11:20 01/21/19/29 (42) Mechanical 07:00 Ventilator 01/21/19 6.0 06:45 01/21/19 98.3 00:00 Intake and Output 01/20/19 01/20/19 01/21/19 1515:00 23:00 07:00 IntakeIntake Total 100 ml 200 ml OutputOutput Total 120 ml 95 ml 5 ml BalanceBalance -120 ml 5 ml 195 ml Results Results 24hrs Laboratory Tests Test 01/20/19 17:15 01/20/19 19:37 01/20/19 19:56 01/20/19 20:36 Bedside Glucose 148 124 Troponin I 0.419 *H Blood Gas Blood arterial Specimen Source Arterial Blood 01/20/2019 8:10: Date Drawn 21 PM Arterial Blood 7.400 pH (Temp corrected) Arterial Blood 34.2 L pCO2 (Temp correct) Arterial Blood 47.6 *L pO2 (Temp corrected) Arterial Blood 20.7 L HCO3 Arterial Blood -3.5 L Base Excess Arterial Blood 79.7 L Oxygen Saturatio n Francis Test N/A Arterial Blood Right Brachial Gas Puncture Site Arterial 0.3 Blood Carboxyhem oglobin Arterial Blood 0.2 Methemoglobin Blood Gas A-a O2 631.2 H Differential Oxyhemoglobin 79.3 L Percent Blood Gas 37.0 Temperature Blood Gas Actual 37 Respiration Rate Blood Gas MASK - BIPAP Modality FiO2 100.0 Blood Gas 10 Pressure Support Blood Gas 20/10 IPAP/EPAP Ratio Blood Gas Colby SALGUERO MD Critical Value Read Back Blood Gas MR Notified Whom Blood Gas 01/20/2019 8:17: Notified Time 35 PM Test 01/21/19 01:39 01/21/19 04:21 01/21/19 04:39 01/21/19 04:42 Bedside Glucose 124 113 White Blood 23.6 #H Count Red Blood Count 2.83 L Hemoglobin 8.6 L Hematocrit 28.4 L Mean Corpuscular 100.4 Volume Mean Corpuscular 30.4 Hemoglobin Mean Corpuscular 30.3 L Hemoglobin Devika nt Red Cell 19.3 H Distribution Width Platelet Count 179 # Mean Platelet 10.9 H Volume Immature 2.100 H Granulocytes % Neutrophils % 79.3 H Lymphocytes % 14.8 L Monocytes % 2.6 Eosinophils % 0.8 Basophils % 0.4 Nucleated Red 0.1 H Blood Cells % Immature 0.490 H Granulocytes # Neutrophils # 18.7 H Lymphocytes # 3.5 H Monocytes # 0.6 Eosinophils # 0.2 Basophils # 0.1 Nucleated Red 0.0 Blood Cells # Sodium Level 149 H Potassium Level 5.6 H Chloride Level 112 H Carbon Dioxide 22 Level Anion Gap 15 #H Blood Urea 70 H Nitrogen Creatinine 3.40 H Est Glomerular Filtrat Rate mL/min Glucose Level 116 Calcium Level 10.5 H Phosphorus Level 9.8 H Magnesium Level 2.3 Blood Gas Blood arterial Specimen Source Arterial Blood 01/21/2019 4:40: Date Drawn 21 AM Arterial Blood 7.254 *L pH (Temp corrected) Arterial Blood 38.3 pCO2 (Temp correct) Arterial Blood 84.0 pO2 (Temp corrected) Arterial Blood 16.6 L HCO3 Arterial Blood -9.8 L Base Excess Arterial Blood 93.3 L Oxygen Saturatio n Francis Test ACCEPTAB Arterial Blood Right Brachial Gas Puncture Site Arterial 0.3 Blood Carboxyhem oglobin Arterial Blood 0.5 Methemoglobin Blood Gas A-a O2 590.7 H Differential Oxyhemoglobin 92.6 L Percent Blood Gas 37.0 Temperature Blood Gas 18.0 Respiration Rate Blood Gas Actual 18 Respiration Rate Blood Gas VENT - AC Modality FiO2 100.0 Blood Gas Tidal 500.0 Volume Blood Gas Low 5.0 PEEP Setting Blood Gas 32.0 Inspiratory Pressure Blood Gas HT RN Critical Value Read Back Blood Gas JJordamarilis Notified Whom Blood Gas 01/21/2019 5:12: Notified Time 57 AM Test 01/21/19 05:08 01/21/19 10:15 01/21/19 10:43 Lactic Acid 5.1 *H 2.4 *H Level Creatine Kinase 129 Creatine Kinase 2.7 Index Creatinine 3.42 H Kinase MB (Mass) Troponin I 0.400 *H Bedside Glucose 179 Medications Medication Current Medications IV Flush (NS 3 ml) 3 ml PER PROTOCOL IV ; Start 12/28/18 at 04:30 Ondansetron HCl (Zofran Inj) 4 mg Q6H PRN IV NAUSEA/VOMITING Last administered on 01/17/19at 13:34; Admin Dose 4 MG; Start 12/28/18 at 04:30 Miscellaneous Information 1 ea NOTE XX ; Start 12/28/18 at 05:00 Glucose (Glutose) 15 gm Q15M PRN PO DECREASED GLUCOSE; Start 12/28/18 at 05:00 Glucose (Glutose) 22.5 gm Q15M PRN PO DECREASED GLUCOSE; Start 12/28/18 at 05:00 Dextrose (D50w Syringe) 25 ml Q15M PRN IV DECREASED GLUCOSE; Start 12/28/18 at 05:00 Dextrose (D50w Syringe) 50 ml Q15M PRN IV DECREASED GLUCOSE; Start 12/28/18 at 05:00 Glucagon (Glucagen) 1 mg Q15M PRN IM DECREASED GLUCOSE; Start 12/28/18 at 05:00 Glucose (Glutose) 15 gm Q15M PRN BUCCAL DECREASED GLUCOSE; Start 12/28/18 at 05:00 Phenol (Cepastat Lozenge) 1 lozenge Q1H PRN MT COUGH Last administered on 01/03/19at 13:05; Admin Dose 1 LOZENGE; Start 12/28/18 at 17:30 Escitalopram Oxalate (Lexapro) 10 mg DAILY PO Last administered on 01/21/19 10:53; Admin Dose 10 MG; Start 12/29/18 at 09:30 Clopidogrel Bisulfate (plaVIX) 75 mg DAILY PO Last administered on 01/21/19 10:53; Admin Dose 75 MG; Start 01/03/19 at 09:00 Morphine Sulfate (morphine) 1 mg Q1H PRN IV SEVERE PAIN LEVEL 7-10 Last administered on 01/19/19 02:01; Admin Dose 1 MG; Start 01/04/19 at 16:00 Polyethylene Glycol (Miralax) 17 gm BID PRN PO CONSTIPATION Last administered on 01/16/19 15:37; Admin Dose 17 GM; Start 01/06/19 at 13:00 IV Flush (NS 10 ml) 10 ml PRN PRN IV flush; Start 01/06/19 at 18:30 Bisacodyl (Dulcolax Supp) 10 mg DAILY PRN [place] CONSTIPATION; Start 01/06/19 at 19:00 Albuterol/ Ipratropium (Duoneb) 3 ml Q4H RESP THERAPY PRN HHN SHORTNESS OF BREATH Last administered on 01/11/19 15:42; Admin Dose 3 ML; Start 01/07/19 at 20:00 IV Flush (NS 10 ml) 10 ml PRN PRN IV IV PROTOCOL; Start 01/12/19 at 18:00 Insulin Aspart (Novolog Insulin Pen) (Adult SC Insulin - Mild Algorithm)... Q4 SC Last administered on 01/21/19 14:22; Admin Dose 1 UNIT; Start 01/17/19 at 05:00 Piperacillin Sod/ Tazobactam Sod 100 ml @ 25 mls/hr TID@02,10,18 IVPB Last administered on 01/21/19 11:29; Admin Dose 25 MLS/HR; Start 01/17/19 at 10:00 Famotidine (Pepcid Iv) 20 mg DAILY IV Last administered on 01/21/19 09:00; Admin Dose 20 MG; Start 01/19/19 at 09:00 Aspirin (Aspirin) 81 mg DAILY PO Last administered on 01/21/19 10:53; Admin Dose 81 MG; Start 01/20/19 at 09:00 Lorazepam (Ativan) 0.5 mg Q12H PRN IV AGITATION/ANXIETY; Start 01/19/19 at 22:30 Acetaminophen (Tylenol Tab) 650 mg Q6H PRN PO MILD PAIN(1-3)OR ELEVATED TEMP Last administered on 01/20/19at 06:18; Admin Dose 650 MG; Start 01/20/19 at 04:30 Fluconazole 100 ml @ 100 mls/hr Q24H IVPB Last administered on 01/21/19at 02 :18; Admin Dose 100 MLS/HR; Start 01/20/19 at 22:30; Stop 02/03/19 at 12:00 Bumetanide 12 mg/ Dextrose/Water 120 ml @ 10 mls/hr Q12H ONCE IV Last administered on 01/21/19at 10:35; Admin Dose 10 MLS/HR; Start 01/21/19 at 09:30; Stop 01/21/19 at 21:29 Fentanyl 100 ml @ 2.5 mls/hr TITRATE IV Last administered on 01/21/19at 10:43; Admin Dose 2.5 MLS/HR; Start 01/21/19 at 09:00 Sodium Bicarbonate 100 meq/Dextrose/ Sodium Chloride 1,100 ml @ 100 mls/hr Q11H IV Last administered on 01/21/19at 10:35; Admin Dose 100 MLS/HR; Start 01/21/19 at 10:00 Midazolam HCl 50 ml @ 1 mls/hr TITRATE IV Last administered on 01/21/19at 12:09; Admin Dose 1 MLS/HR; Start 01/21/19 at 11:00 Phenylephrine HCl 40 mg/Dextrose 250 ml @ 37.5 mls/hr TITRATE IV ; Start 01/21/19 at 11:30; Stop 01/21/19 at 18:00 Phenylephrine HCl 80 mg/Dextrose 250 ml @ 18.75 mls/ hr TITRATE IV Last administered on 01/21/19at 12:11; Admin Dose 18.75 MLS/HR; Start 01/21/19 at 12:00 MARCLEA GUEVARA MD January 21, 2019 14:42
[2019-01-21] MEDS: INSULIN ASPART [NOVOLOG] 3 ML PEN SC SCH (20:48)
[2019-01-21] MEDS ORDERED: INSULIN GLARGINE [LANTus] (100 UNITS/ML) SYG SC SCH (21:00)
[2019-01-22] VITALS (38 sets, daily range): BP systolic 63–132; BP diastolic 34–51; PULSE 91–134; RESP 20–24
[2019-01-22] MEDS ORDERED: NORepinephrine 8MG/250 ML (PMX 250 ML ONE (00:37)
[2019-01-22] MEDS ORDERED: NORepinephrine 32 MG in DEXTROSE 5% 218 ML IV SCH (01:00)
[2019-01-22] MEDS: INSULIN ASPART [NOVOLOG] 3 ML PEN SC SCH ×2 (01:21→05:00)
[2019-01-22] MEDS: PIPER-TAZO 3.375 GM IV (PMX) 100 ML IVPB SCH (01:49)
[2019-01-22] MEDS ORDERED: ACCU-CHEK XX SCH (02:00)
[2019-01-22] MEDS: PHENYLephrine 80 MG in DEXTROSE 5% 242 ML IV SCH ×2 (02:51→04:42)
[2019-01-22] MEDS: FENTAnyl (DRIP) 1000 mcg/100mL 100 ML IV SCH (02:59)
[2019-01-22] MEDS: MIDAZOLAM (DRIP) 50 mg/50 mL 50 ML IV SCH (03:00)
--- NOTE | 2019-01-22 07:45 | QN ---
Documentation Comment Spoke to the of the patient at the bedside. The is decided to proceed with comfort care. He does not want his to suffer any longer. I did explain comfort measures to the patient and he is understanding. I will initiate a morphine drip. Once patient is comfortable I have advised RN that we can put orders in to DC all the medications as well as to extubate. The understands this as well as the RN. ADIEL SALGUERO January 22, 2019 07:45
[2019-01-22] MEDS ORDERED: LORAZEPAM 2 MG INJ IV PRN (08:00)
[2019-01-22] MEDS ORDERED: morphine (DRIP) 100 MG/100 ML 100 ML IV SCH ×2 (08:00→09:30)
[2019-01-22] MEDS ORDERED: ATROPINE SULFATE 1% 5ML SL PRN (08:30)
--- NOTE | 2019-01-22 09:12 | CONS ---
Consult Date/Type/Reason Admit Date/Time December 28, 2018 at 03:23 Initial Consult Date 01/03/19 Type of Consult Pulmonary Requesting Provider: KRYSTAL BERNARD Date/Time of Note DATE: 01/22/19 TIME: 09:09 Subjective Patient stable this morning. Remains intubated on mechanical ventilation no new events. Objective Vital Signs Date Temp Pulse Resp B/P (MAP) Pulse Ox O2 O2 Flow FiO2 Time Delivery Rate 01/22/19 124 20 125/45 99 Mechanical 07:00 (71) Ventilator 01/22/19 100 05:22 01/22/19 98.8 04:00 01/21/19 6.0 06:45 Intake and Output 01/21/19 01/21/19 01/22/19 1515:00 23:00 07:00 IntakeIntake Total 333.5 ml 1235.60 ml OutputOutput Total 20 ml 15 ml 25 ml BalanceBalance -20 ml 318.5 ml 1210.60 ml Exam PHYSICAL EXAMINATION: VITAL SIGNS: Orally intubated. As above NECK: Supple. No JVD or lymphadenopathy. CARDIAC: S1, S2, no added sounds or murmurs. CHEST: Diminished air entry bilaterally. ABDOMEN: Soft, nontender. No guarding or rebound. EXTREMITIES: No cyanosis, clubbing, or edema. NEUROLOGIC: Generalized weakness. Vent Setting Ventilator Support Mode: PC Fraction of Inspired Oxygen pe: 100 Positive End Expiratory Pressu: 12.0 Results/Medications Result Diagram: 01/22/19 0448 01/22/19 0448 Results 24 hrs Laboratory Tests Test 01/21/19 10:15 01/21/19 10:43 01/21/19 14:19 01/21/19 16:25 Bedside Glucose 179 177 Lactic Acid 2.4 *H 2.1 *H Level Test 01/21/19 19:13 01/21/19 19:39 01/21/19 19:54 01/21/19 20:45 Bedside Glucose 224 H 208 Blood Gas Blood arterial Specimen Source Arterial Blood 01/21/2019 7:48: Date Drawn 26 PM Arterial Blood 7.467 H pH (Temp corrected) Arterial Blood 35.5 pCO2 (Temp correct) Arterial Blood 55.3 L pO2 (Temp corrected) Arterial Blood 25.1 HCO3 Arterial Blood 1.5 Base Excess Arterial Blood 86.4 L Oxygen Saturatio n Francis Test ACCEPTAB Arterial Blood Left Radial Gas Puncture Site Arterial 0.2 Blood Carboxyhem oglobin Arterial Blood 0.6 Methemoglobin Blood Gas A-a O2 622.2 H Differential Oxyhemoglobin 85.7 L Percent Blood Gas 37.0 Temperature Blood Gas 20.0 Respiration Rate Blood Gas Actual 20 Respiration Rate Blood Gas VENT - AC Modality FiO2 100.0 Blood Gas Tidal 500.0 Volume Blood Gas Low 5.0 PEEP Setting Blood Gas 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 Notified Whom Blood Gas 01/21/2019 7:53: Notified Time 57 PM Sodium Level 139 Potassium Level 3.8 Chloride Level 102 # Carbon Dioxide 28 Level Anion Gap 9 # Blood Urea 65 H Nitrogen Creatinine 2.99 H Est Glomerular Filtrat Rate mL/min Glucose Level 692 #*H Calcium Level 6.8 L Test 01/21/19 21:44 01/22/19 01:05 01/22/19 01:18 01/22/19 04:48 Blood Gas Blood arterial Blood arterial Specimen Source Arterial Blood 01/21/2019 9:45: 01/22/2019 1:15: Date Drawn 51 PM 20 AM Arterial Blood 7.438 7.391 pH (Temp corrected) Arterial Blood 37.1 35.9 pCO2 (Temp correct) Arterial Blood 53.9 *L 53.3 *L pO2 (Temp corrected) Arterial Blood 24.5 21.3 L HCO3 Arterial Blood 0.4 -3.2 L Base Excess Arterial Blood 84.8 L 83.1 L Oxygen Saturatio n Francis Test ACCEPTAB ACCEPTAB Arterial Blood Right Radial Right Radial Gas Puncture Site Arterial 0.2 0.3 Blood Carboxyhem oglobin Arterial Blood 0.5 0.4 Methemoglobin Blood Gas A-a O2 622.0 H 623.8 H Differential Oxyhemoglobin 84.2 L 82.5 L Percent Blood Gas 37.0 37.0 Temperature Blood Gas 20.0 20.0 Respiration Rate Blood Gas Actual 20 23 Respiration Rate Blood Gas VENT - AC VENT - AC Modality FiO2 100.0 100.0 Blood Gas Tidal 500.0 500.0 Volume Blood Gas Low 8.0 10.0 PEEP Setting Blood Gas Colby SALGUERO MD, M MD Critical Value Read Back Blood Gas JIMMY MARQUEZ Notified Whom Blood Gas 01/21/2019 9:59: 01/22/2019 1:24: Notified Time 37 PM 03 AM Bedside Glucose 188 White Blood 26.6 H Count Red Blood Count 2.84 L Hemoglobin 8.5 L Hematocrit 27.6 L Mean Corpuscular 97.2 Volume Mean Corpuscular 29.9 Hemoglobin Mean Corpuscular 30.8 L Hemoglobin Devika nt Red Cell 20.1 H Distribution Width Platelet Count 181 Mean Platelet 11.3 H Volume Immature 1.300 H Granulocytes % Neutrophils % 87.9 H Lymphocytes % 7.3 L Monocytes % 2.5 Eosinophils % 0.5 Basophils % 0.5 Nucleated Red 0.9 H Blood Cells % Immature 0.340 H Granulocytes # Neutrophils # 23.4 H Lymphocytes # 1.9 Monocytes # 0.7 Eosinophils # 0.1 Basophils # 0.1 Nucleated Red 0.2 H Blood Cells # Prothrombin Time 36.8 #H Prothrombin Time 2.9 Ratio INR 3.72 International Normalized Ratio Activated 50.2 H Partial Thrombop last Time Sodium Level 148 H Potassium Level 4.2 Chloride Level 111 H Carbon Dioxide 24 Level Anion Gap 13 Blood Urea 73 H Nitrogen Creatinine 3.82 H Est Glomerular Filtrat Rate mL/min Glucose Level 136 # Calcium Level 7.9 L Magnesium Level 2.0 Total Bilirubin 0.4 Direct Bilirubin 0.00 Indirect 0.4 Bilirubin Aspartate Amino 86 H Transf (AST/SGOT ) Alanine 62 Aminotransferase (ALT/SGPT) Alkaline 143 H Phosphatase Total Protein 4.7 L Albumin 2.3 L Globulin 2.40 Albumin/Globulin 0.95 Ratio Test 01/22/19 04:56 01/22/19 05:00 Bedside Glucose 159 Blood Gas Blood arterial Specimen Source Arterial Blood 01/22/2019 5:05: Date Drawn 37 AM Arterial Blood 7.461 H pH (Temp corrected) Arterial Blood 33.8 L pCO2 (Temp correct) Arterial Blood 77.2 L pO2 (Temp corrected) Arterial Blood 23.6 HCO3 Arterial Blood 0 Base Excess Arterial Blood 94.5 L Oxygen Saturatio n Francis Test ACCEPTAB Arterial Blood Left Radial Gas Puncture Site Arterial 0.3 Blood Carboxyhem oglobin Arterial Blood 0.5 Methemoglobin Blood Gas A-a O2 602.0 H Differential Oxyhemoglobin 93.7 Percent Blood Gas 37.0 Temperature Blood Gas 20.0 Respiration Rate Blood Gas Actual 20 Respiration Rate Blood Gas VENT - PC Modality FiO2 100.0 Blood Gas 0.9 Inspiratory Time Blood Gas Low 12.0 PEEP Setting Blood Gas A. Notified Whom Jil [facility] Blood Gas 01/22/2019 5:15: Notified Time 43 AM Medications Current Medications Morphine Sulfate (morphine) 1 mg Q1H PRN IV SEVERE PAIN LEVEL 7-10 Last administered on 01/19/19at 02:01; Admin Dose 1 MG; Start 01/04/19 at 16:00 Midazolam HCl 50 ml @ 1 mls/hr TITRATE IV Last administered on 01/22/19at 03:00; Admin Dose 1 MLS/HR; Start 01/21/19 at 11:00 Morphine Sulfate/ Sodium Chloride 100 ml @ 1 mls/hr TITRATE IV ; Start 01/22/19 at 09:30 Assessment/Plan Hospital Course (Demo Recall) IMPRESSION: 1. Worsening encephalopathy, likely secondary to volume overload and hypoxemia. 2. Progressive renal failure previously contrast nephropathy. Minimal urine output with progressive BUN and creatinine. 3. Coronary artery disease status post stent placement x2. Status post cardiopulmonary arrest 4. Small-bowel obstruction with NG tube in place. PLAN: 1. continue mechanical ventilation adjust for respiratory acidosis metabolic acidosis. 2. IV fluids and intravenous bicarb. 3. Family to consider comfort care over hemodialysis. 4. Nasogastric tube to suction. 5. Vasopressors as needed Critical care time 40 minutes. Overall prognosis extremely poor Family informed about goals of care CODE STATUS changed to DNR. Family considering comfort care. T[facility] REID [facility], [facility] January 22, 2019 09:12
--- NOTE | 2019-01-22 09:54 | EN ---
Date/Time of Note Date/Time of Note DATE: 01/22/19 TIME: 09:52 Event Note Medicine Medicine Event Note pronouncement following palliative extubation, patient found without spontaneous respirations, no pulse x 100 seconds of auscultation, no cranial nerve reflexes present, no response to noxious stimuli. Patient pronounced at 9:50 AM MARCELA GUEVARA MD January 22, 2019 09:53
--- NOTE | 2019-01-22 16:01 | DES ---
Date/Time of Note Date/Time of Note DATE: 01/22/19 TIME: 15:57 Discharge/ Summary Admission/Discharge Info Admit Date/Time December 28, 2018 at 03:23 Final Diagnosis Myocardial infarction Preliminary Cause of Myocardial infarction Hospital Course 83 yo Mexican-speaking woman with history of dementia, hypertension, dyslipidemia, MR and aortic insufficiency arrhythmia who presented with ACS. She underwent PCI which found severe 2 vessel CAD, LAD and RCA, LAD is culprit with francine 2 flow, and cardiomyopathy with LVEF 35%. She was given Lipitor, beta-geovanny, statin, Plavix and Imdur - Now s/p PCI to LAD (01/04) and RCA (01/08) She then went into renal failure and respiratory failure. She eventually required intubation. GIven progressive mulitorgan failure, hospice was offered. Family agreed to palliative extubation and the patient shortly thereafter Pending Labs/Cultures Laboratory Tests Test 01/21/19 16:25 01/21/19 19:13 01/21/19 19:39 01/21/19 19:54 Lactic Acid 2.1 Level mmol/L (0.5-2.0 ) Bedside 224 Glucose mg/dL (70-220) Blood Gas Blood arterial Specimen Source Arterial Blood 01/21/2019 7:48 Date Drawn :26 PM Arterial Blood 7.467 (7.350-7 pH .450) (Temp corrected ) Arterial Blood 35.5 pCO2 mmhg (35-45) (Temp correct) Arterial Blood 55.3 pO2 mmHG (80-90.0) (Temp corrected ) Arterial Blood 25.1 HCO3 mmol/L (22.0-2 6.0) Arterial Blood 1.5 Base Excess mmol/L (-3.0-3 ) Arterial Blood 86.4 Oxygen Saturati mmHG (95.0-100 on .0) Francis Test ACCEPTAB Arterial Blood Left Radial Gas Puncture Site Arterial 0.2 Blood Carboxyhe % (0.0-3.0) moglobin Arterial Blood 0.6 Methemoglobin % (0.0-1.5) Blood Gas A-a 622.2 O2 mmHg (7.0-24.0 Differential ) Oxyhemoglobin 85.7 Percent % (93.0-99.0) Blood Gas 37.0 C Temperature Blood Gas 20.0 Respiration Rate Blood Gas 20 Actual Respiration Rat e Blood Gas VENT - AC Modality FiO2 100.0 % Blood Gas Tidal 500.0 mL Volume Blood Gas Low 5.0 cmH2O PEEP Setting Blood Gas D [employer] Notified Whom Blood Gas 01/21/2019 7:53 Notified Time :57 PM Sodium Level 139 mmol/L (135-14 4) Potassium 3.8 Level mmol/L (3.5-5. 1) Chloride Level 102 mmol/L (97-110 ) Carbon Dioxide 28 Level mmol/L (21-31) Anion Gap 9 (5-13) Blood Urea 65 Nitrogen mg/dl (7-20) Creatinine 2.99 mg/dl (0.44-1. 00) Est Glomerular mL/min (>60) Filtrat Rate mL/min Glucose Level 692 mg/dl (70-220) Calcium Level 6.8 mg/dl (8.4-10. 2) Test 01/21/19 20:45 01/21/19 21:44 01/22/19 01:05 01/22/19 01:18 Bedside 208 188 Glucose mg/dL (70-220) mg/dL (70-220) Blood Gas Blood arterial Blood arterial Specimen Source Arterial Blood 01/21/2019 9:45 01/22/2019 1:15 Date Drawn :51 PM :20 AM Arterial Blood 7.438 (7.350-7 7.391 (7.350-7 pH .450) .450) (Temp corrected ) Arterial Blood 37.1 35.9 pCO2 mmhg (35-45) mmhg (35-45) (Temp correct) Arterial Blood 53.9 53.3 pO2 mmHG (80-90.0) mmHG (80-90.0) (Temp corrected ) Arterial Blood 24.5 21.3 HCO3 mmol/L (22.0-2 mmol/L (22.0-2 6.0) 6.0) Arterial Blood 0.4 -3.2 Base Excess mmol/L (-3.0-3 mmol/L (-3.0-3 ) ) Arterial Blood 84.8 83.1 Oxygen Saturati mmHG (95.0-100 mmHG (95.0-100 on .0) .0) Francis Test ACCEPTAB ACCEPTAB Arterial Blood Right Radial Right Radial Gas Puncture Site Arterial 0.2 0.3 Blood Carboxyhe % (0.0-3.0) % (0.0-3.0) moglobin Arterial Blood 0.5 0.4 Methemoglobin % (0.0-1.5) % (0.0-1.5) Blood Gas A-a 622.0 623.8 O2 mmHg (7.0-24.0 mmHg (7.0-24.0 Differential ) ) Oxyhemoglobin 84.2 82.5 Percent % (93.0-99.0) % (93.0-99.0) Blood Gas 37.0 C 37.0 C Temperature Blood Gas 20.0 20.0 Respiration Rate Blood Gas 20 23 Actual Respiration Rat e Blood Gas VENT - AC VENT - AC Modality FiO2 100.0 % 100.0 % Blood Gas Tidal 500.0 mL 500.0 mL Volume Blood Gas Low 8.0 cmH2O 10.0 cmH2O PEEP Setting Blood Gas Colby SALGUERO MD, M MD Critical Value Read Back Blood Gas JIMMY MARQUEZ Notified Whom Blood Gas 01/21/2019 9:59 01/22/2019 1:24 Notified Time :37 PM :03 AM Test 01/22/19 04:48 01/22/19 04:56 01/22/19 05:00 White Blood 26.6 Count 10^3/ul (4.8-10 .8) Red Blood 2.84 Count 10^6/ul (4.20-5 .40) Hemoglobin 8.5 g/dl (12.0-16.0 ) Hematocrit 27.6 % (37.0-47.0) Mean 97.2 Corpuscular fl (82.0-101.0) Volume Mean 29.9 Corpuscular pg (29.0-33.0) Hemoglobin Mean 30.8 Corpuscular g/dl (32.0-37.0 Hemoglobin Conc ) ent Red Cell 20.1 Distribution % (11.5-14.5) Width Platelet Count 181 10^3/UL (140-41 5) Mean Platelet 11.3 Volume fl (7.4-10.4) Immature 1.300 Granulocytes % % (0.001-0.429) Neutrophils % 87.9 % (39.0-77.0) Lymphocytes % 7.3 % (15.0-51.0) Monocytes % 2.5 % (0.0-11.0) Eosinophils % 0.5 % (0.0-7.0) Basophils % 0.5 % (0.0-2.0) Nucleated Red 0.9 Blood Cells % /100WBC (0.0-0. 0) Immature 0.340 Granulocytes # 10^3/ul (0.0-0. 031) Neutrophils # 23.4 10^3/ul (1.6-7. 5) Lymphocytes # 1.9 10^3/ul (0.8-2. 9) Monocytes # 0.7 10^3/ul (0.3-0. 9) Eosinophils # 0.1 10^3/ul (0.0-0. 5) Basophils # 0.1 10^3/ul (0.0-0. 1) Nucleated Red 0.2 Blood Cells # 10^3/ul (0.0-0. 0) Prothrombin 36.8 Time Sec (11.9-14.9) Prothrombin 2.9 Time Ratio INR 3.72 International Normalized Rati o Activated 50.2 Partial Thrombo Sec (23.0-35.0) plast Time Sodium Level 148 mmol/L (135-144 ) Potassium 4.2 Level mmol/L (3.5-5.1 ) Chloride Level 111 mmol/L (97-110) Carbon Dioxide 24 Level mmol/L (21-31) Anion Gap 13 (5-13) Blood Urea 73 mg/dl (7-20) Nitrogen Creatinine 3.82 mg/dl (0.44-1.0 0) Est Glomerular mL/min (>60) Filtrat Rate mL/min Glucose Level 136 mg/dl (70-220) Calcium Level 7.9 mg/dl (8.4-10.2 ) Magnesium 2.0 Level mg/dl (1.7-2.5) Total 0.4 Bilirubin mg/dl (0.2-1.3) Direct 0.00 Bilirubin mg/dl (0.00-0.2 0) Indirect 0.4 Bilirubin mg/dl (0-1.1) Aspartate Amino 86 IU/L (15-46) Transf (AST/SGO T) Alanine 62 IU/L (13-69) Aminotransferas e (ALT/SGPT) Alkaline 143 Phosphatase IU/L (42-121) Total Protein 4.7 g/dl (6.1-8.1) Albumin 2.3 g/dl (3.3-4.9) Globulin 2.40 g/dl (1.3-3.2) Albumin/Globuli 0.95 n Ratio Bedside 159 Glucose mg/dL (70-220) Blood Gas Blood arterial Specimen Source Arterial Blood 01/22/2019 5:05 Date Drawn :37 AM Arterial Blood 7.461 (7.350-7 pH .450) (Temp corrected ) Arterial Blood 33.8 pCO2 mmhg (35-45) (Temp correct) Arterial Blood 77.2 pO2 mmHG (80-90.0) (Temp corrected ) Arterial Blood 23.6 HCO3 mmol/L (22.0-2 6.0) Arterial Blood 0 Base Excess mmol/L (-3.0-3 ) Arterial Blood 94.5 Oxygen Saturati mmHG (95.0-100 on .0) Francis Test ACCEPTAB Arterial Blood Left Radial Gas Puncture Site Arterial 0.3 Blood Carboxyhe % (0.0-3.0) moglobin Arterial Blood 0.5 Methemoglobin % (0.0-1.5) Blood Gas A-a 602.0 O2 mmHg (7.0-24.0 Differential ) Oxyhemoglobin 93.7 Percent % (93.0-99.0) Blood Gas 37.0 C Temperature Blood Gas 20.0 Respiration Rate Blood Gas 20 Actual Respiration Rat e Blood Gas VENT - PC Modality FiO2 100.0 % Blood Gas 0.9 Inspiratory Time Blood Gas Low 12.0 cmH2O PEEP Setting Blood Gas A. Notified Whom Jil Britt Blood Gas 01/22/2019 5:15 Notified Time :43 AM MARCELA GUEVARA MD January 22, 2019 16:01
== END 2019-01-22 09:50 | disposition expired | DRG 853 ==
LOC: E/R 00:12 → TEL 03:23 → ICU 10:42 → TEL 12-30 23:57 → ICU 12-31 21:38 → TEL 01-14 03:47 → ICU 01-20 11:17
PROVIDERS: ADMIT Internal Medicine; ATTEND Internal Medicine
PROC: 4A023N7 Measurement of Cardiac Sampling and Pressure, Left Heart, Percutaneous Approach (ICD-10-PCS; 2018-12-28)
PROC: B2151ZZ Fluoroscopy of Left Heart using Low Osmolar Contrast (ICD-10-PCS; 2018-12-28)
PROC: B2111ZZ Fluoroscopy of Multiple Coronary Arteries using Low Osmolar Contrast (ICD-10-PCS; 2018-12-28)
PROC: 027034Z Dilation of Coronary Artery, One Artery with Drug-eluting Intraluminal Device, Percutaneous Approach (ICD-10-PCS; 2019-01-04)
PROC: B211YZZ Fluoroscopy of Multiple Coronary Arteries using Other Contrast (ICD-10-PCS; 2019-01-04)
PROC: 4A023N7 Measurement of Cardiac Sampling and Pressure, Left Heart, Percutaneous Approach (ICD-10-PCS; 2019-01-04)
PROC: 02HV33Z Insertion of Infusion Device into Superior Vena Cava, Percutaneous Approach (ICD-10-PCS; 2019-01-06)
PROC: 30233N1 Transfusion of Nonautologous Red Blood Cells into Peripheral Vein, Percutaneous Approach (ICD-10-PCS; 2019-01-07)
PROC: 027034Z Dilation of Coronary Artery, One Artery with Drug-eluting Intraluminal Device, Percutaneous Approach (ICD-10-PCS; 2019-01-08)
PROC: 4A023N7 Measurement of Cardiac Sampling and Pressure, Left Heart, Percutaneous Approach (ICD-10-PCS; 2019-01-08)
PROC: B211YZZ Fluoroscopy of Multiple Coronary Arteries using Other Contrast (ICD-10-PCS; 2019-01-08)
PROC: 5A09357 Assistance with Respiratory Ventilation, Less than 24 Consecutive Hours, Continuous Positive Airway Pressure (ICD-10-PCS; principal; 2019-01-21)
PROC: 0BH17EZ Insertion of Endotracheal Airway into Trachea, Via Natural or Artificial Opening (ICD-10-PCS; 2019-01-21)
DX: A41.9 Sepsis, unspecified organism (principal); I21.3 ST elevation (STEMI) myocardial infarction of unspecified site; J96.00 Acute respiratory failure, unspecified whether with hypoxia or hypercapnia; J18.9 Pneumonia, unspecified organism; I50.23 Acute on chronic systolic (congestive) heart failure; I13.0 Hypertensive heart and chronic kidney disease with heart failure and stage 1 through stage 4 chronic kidney disease, or unspecified chronic kidney disease; I42.9 Cardiomyopathy, unspecified; N17.9 Acute kidney failure, unspecified; G93.40 Encephalopathy, unspecified; E87.0 Hyperosmolality and hypernatremia; K56.609 Unspecified intestinal obstruction, unspecified as to partial versus complete obstruction; N39.0 Urinary tract infection, site not specified; I46.9 Cardiac arrest, cause unspecified; I35.1 Nonrheumatic aortic (valve) insufficiency; F03.90 Unspecified dementia, unspecified severity, without behavioral disturbance, psychotic disturbance, mood disturbance, and anxiety; E78.5 Hyperlipidemia, unspecified; I34.0 Nonrheumatic mitral (valve) insufficiency; I35.0 Nonrheumatic aortic (valve) stenosis; I44.7 Left bundle-branch block, unspecified; I25.10 Atherosclerotic heart disease of native coronary artery without angina pectoris; N18.9 Chronic kidney disease, unspecified; E87.6 Hypokalemia; N18.3 Chronic kidney disease, stage 3 (moderate); I48.91 Unspecified atrial fibrillation; E11.22 Type 2 diabetes mellitus with diabetic chronic kidney disease; Z79.4 Long term (current) use of insulin; Z66 Do not resuscitate
CPT/HCPCS: 31500; 36415; 36430; 36569; 36600; 70450; 71045; 71250; 74018; 74176; 74250; 76705; 76937; 80048; 80053; 80061; 80202; 80307; 81001; 82550; 82553; 82565; 82728; 82803; 82962; 83036; 83540; 83605; 83735; 83880; 84100; 84145; 84443; 84484; 84520; 85025; 85045; 85610; 85730; 86850; 86900; 86901; 86920; 87045; 87075; 87081; 87086; 92950; 93005; 93306; 93312; 93458; 93971; 94003; 94640; 94660; 94664; 94770; 96374; 96375; 97110; 97163; 97530; C1725; C1769; C1874; C1887; C1894; C9113; C9600; J0171; J0456; J0461; J0583; J0696; J1100; J1200; J1644; J1815; J1885; J1940; J2001; J2060; J2250; J2270; J2370; J2405; J2543; J2765; J2920; J3010; J3370; J3480; J7030; J7040; J7042; J7050; J7070; P9016; P9047; Q9967